=== PATIENT | male | born 1945 | race American Indian/Alaskan Native ===

== ENCOUNTER 2016-09-13 08:57 | Outpatient (CLI) | payer MEDICARE ==
--- NOTE | 2016-09-13 10:29 | Ultrasound Report ---
ULTRASOUND RENAL INDICATION: Chronic kidney disease. COMPARISON: 08/01/13 CT. FINDINGS: Renal sonography suggests moderate increased renal cortical echogenicity. Grossly preserved contours. No hydronephrosis. Known multiple hepatic cysts, measuring approximately 1.7 cm, image 12 and 2.3 cm, image 14. RIGHT KIDNEY measures 10.3 x 4.6 x 4.9 cm with cortical thickness of 1.2 cm. LEFT KIDNEY estimated at 10.6 x 5.2 x 4.8 cm with cortical thickness of 1.4 cm. Approximately 2.5 x 2.1 cm left interpolar cyst. URINARY BLADDER suboptimally distended and assessed. CONCLUSION: Underlying medical renal disease, liver cysts and a left renal cyst sonographically without acute renal abnormality. Please correlate. Thank you for the opportunity to participate in this patient's care.
== END 2016-09-13 08:58 | disposition home or self-care (01) ==
LOC: US 08:57
PROVIDERS: ATTEND Internal Medicine Nephrology
DX: I12.9 Hypertensive chronic kidney disease with stage 1 through stage 4 chronic kidney disease, or unspecified chronic kidney disease (principal); N18.4 Chronic kidney disease, stage 4 (severe); N28.1 Cyst of kidney, acquired; K76.89 Other specified diseases of liver
CPT/HCPCS: 76770

== ENCOUNTER 2018-07-15 06:03 | Day surgery (SDC) | payer BC, MEDICARE ==
[~2018-07-15 06:03] MED LIST: ANCEF/STERILE WATER 2 GM/20 ML 2 GM/20 ML SYRINGE IV NR; NACL 0.9% 1000 ML 1,000 ML IV SCH
[2018-07-15] MEDS ORDERED: NACL BACTERIOSTATIC INFILTRATI ONE (06:42)
[2018-07-15] MEDS ORDERED: XYLOCAINE MPF 2% ONE (07:06)
[2018-07-15] MEDS ORDERED: SUBLIMAZE ONE (07:06)
[2018-07-15] MEDS ORDERED: DIPRIVAN 10 MG/ML IV ONE (07:07)
[2018-07-15] MEDS ORDERED: PROVENTIL IH ONE (07:16)
[2018-07-15 07:23] VITALS: BP 171/80
[2018-07-15] MEDS ORDERED: HEPARIN 10,000 UNITS/10 ML ONE (07:33)
[2018-07-15 07:34] LABS: Basophils # (Auto) 0.1 K/mm3 (0.0-0.1); Basophils % (Auto) 0.5 % (0.0-1.8); Eosinophils # (Auto) 0.3 K/mm3 (0.0-0.4); Eosinophils % (Auto) 2.6 % (0.0-4.3); Hematocrit 30.5 % (35.5-45.6); Hemoglobin 10.3 gm/dl (11.8-15.2); Lymphocytes # (Auto) 1.9 K/mm3 (1.2-5.4); Lymphocytes % (Auto) 17.7 % (13.4-35.0); Mean Corpuscular HGB Conc 34 % (32-34); Mean Corpuscular Volume 84 fl (84-94); Monocytes # (Auto) 1.1 K/mm3 (0.0-0.8); Platelet Count 208 K/mm3 (140-440); Red Blood Count 3.65 M/mm3 (3.65-5.03)
[2018-07-15] MEDS ORDERED: XYLOCAINE 1%/ EPI 1:100,000 INFILTRATI ONE (07:34)
[2018-07-15] MEDS ORDERED: SODIUM BICARBONATE ONE (07:34)
[2018-07-15] MEDS ORDERED: NACL 0.9% 500 ML 0 ML ONE (07:34)
[2018-07-15] MEDS ORDERED: MARCAINE 0.25% INFILTRATI ONE (07:36)
[2018-07-15 07:48] LABS: Calcium 9.2 mg/dL (8.4-10.2)
[2018-07-15] MEDS ORDERED: PROVENTIL IH NR (08:00)
--- NOTE | 2018-07-15 08:50 | XRay Report ---
ROUTINE CHEST, TWO VIEWS: HISTORY: Cold symptoms. Right IJ dual-lumen catheter terminates in the superior right atrium. The trachea, heart, mediastinal contour, lung cochran and bony thorax are unremarkable. No significant change is demonstrated since 05/22/18. IMPRESSION: No acute cardiopulmonary process.
--- NOTE | 2018-07-15 10:35 | Anesthesia Consultation ---
Anesthesia Consult and Med Hx - Airway Anesthetic Teeth Evaluation: Poor ROM Head & Neck: Adequate Mental/Hyoid Distance: Adequate Mallampati Class: Class II Intubation Access Assessment: Good - Pulmonary Exam CTA: Yes - Cardiac Exam Cardiac Exam: RRR - Pre-Operative Health Status ASA Pre-Surgery Classification: ASA3 Proposed Anesthetic Plan: General - Pulmonary Hx Smoking: No Hx Respiratory Symptoms: Yes (Pesistent cough on antibiotics day 5 of 7 ) SOB: No - Cardiovascular System Hx Hypertension: Yes Hx Heart Murmur: Yes - Central Nervous System Hx Psychiatric Problems: No - Endocrine Hx Renal Disease: Yes Hx End Stage Renal Disease: Yes - Hematic Hx Anemia: Yes - Other Systems Hx Cancer: No - Additional Comments Anesthesia Medical History Comments: Pt with HTN, ESRD on HD T, TH, SAT for AV fistula . Patient has persistent cough and is on ABX for URTI ,. After D/W surgeon Surgery postponed until chest infection resolves
== END 2018-07-15 06:04 | disposition home or self-care (01) ==
LOC: OR 06:03
PROVIDERS: ATTEND Surgery Vascular Surgery
DX: I12.0 Hypertensive chronic kidney disease with stage 5 chronic kidney disease or end stage renal disease (principal); N18.6 End stage renal disease; D64.9 Anemia, unspecified; I25.2 Old myocardial infarction; E78.00 Pure hypercholesterolemia, unspecified; M19.90 Unspecified osteoarthritis, unspecified site; Z53.8 Procedure and treatment not carried out for other reasons; Z91.19 Patient's noncompliance with other medical treatment and regimen; Z98.890 Other specified postprocedural states; Z99.2 Dependence on renal dialysis; Z86.2 Personal history of diseases of the blood and blood-forming organs and certain disorders involving the immune mechanism
CPT/HCPCS: 36415; 71046; 80048; 82803; 85025; J7030; J0690; J1644; J2704; J3010; J7040

== ENCOUNTER 2018-09-02 06:00 | Day surgery (SDC) | payer BC, MEDICARE ==
[2018-09-02] MEDS ORDERED: NACL BACTERIOSTATIC INFILTRATI ONE (06:55)
--- NOTE | 2018-09-02 07:18 | Anesthesia Consultation ---
Anesthesia Consult and Med Hx Date of service: 09/02/18 - Airway Anesthetic Teeth Evaluation: Good ROM Head & Neck: Adequate Mental/Hyoid Distance: Adequate Mallampati Class: Class IV Intubation Access Assessment: Possibly Difficult - Pulmonary Exam CTA: Yes - Cardiac Exam Cardiac Exam: RRR - Pre-Operative Health Status ASA Pre-Surgery Classification: ASA4 Proposed Anesthetic Plan: General - Pulmonary Hx Smoking: No Hx Respiratory Symptoms: Yes (bronchitis s/p abx 07/2018) SOB: No Hx Sleep Apnea: No - Cardiovascular System Hx Hypertension: Yes (took clonidine and coreg today) Hx Heart Attack/AMI: No Hx Percutaneous Transluminal Coronary Angioplasty (PTCA): No Hx Cardia Arrhythmia: No - Central Nervous System CVA: No Hx Psychiatric Problems: No - Gastrointestinal Hx Gastroesophageal Reflux Disease: No - Endocrine Hx End Stage Renal Disease: Yes (TTS HD; last HD 09/01/18) Hx Liver Disease: No Hx Insulin Dependent Diabetes: No Hx Non-Insulin Dependent Diabetes: No Hx Thyroid Disease: No - Hematic Hx Anemia: Yes - Other Systems Hx Obesity: No - Additional Comments Anesthesia Medical History Comments: No hx anesthetic complications. Surgery originally scheduled in 07/2018 but postponed 2/2 active respiraoty infection. Symptoms now resolved. No longer on antibiootics and no inhaler use.
[2018-09-02] MEDS ORDERED: SUBLIMAZE IV PRN (07:19)
--- NOTE | 2018-09-02 07:19 | Anesthesia Day of Surgery ---
Anesthesia Day of Surgery - Day of Surgery Patient Examined: Yes Patient H&P Reviewed: Yes Patient is NPO: Yes Beta Blockers: Yes (coreg 09/02/18 AM)
[2018-09-02] MEDS ORDERED: MARCAINE 0.5% INFILTRATI ONE ×3 (07:32→09:00)
[2018-09-02] MEDS ORDERED: HEPARIN 10,000 UNITS/10 ML ONE (07:32)
[2018-09-02] MEDS ORDERED: XYLOCAINE 1%/ EPI 1:100,000 INFILTRATI ONE (07:32)
[2018-09-02] MEDS ORDERED: NACL 0.9% 500 ML 500 ML ONE (07:32)
[2018-09-02] MEDS ORDERED: SODIUM BICARBONATE ONE (07:33)
[2018-09-02] MEDS ORDERED: ZOFRAN ONE (07:43)
[2018-09-02] MEDS ORDERED: DIPRIVAN 10 MG/ML IV ONE (07:43)
[2018-09-02] MEDS ORDERED: XYLOCAINE MPF 2% ONE (07:43)
[2018-09-02] MEDS ORDERED: SUBLIMAZE ONE (07:43)
[2018-09-02] MEDS ORDERED: HEPARIN 10,000 UNITS/10 ML IR ONE (09:00)
[2018-09-02] MEDS ORDERED: NACL 0.9% 500 ML IRRIGATION ONE (09:01)
[2018-09-02] MEDS ORDERED: NACL 0.9% IR ONE (09:39)
--- NOTE | 2018-09-02 10:50 | Operative Report ---
Operative Report Operative Report: Date of procedure: 09/02/2018 Pre-operative diagnosis: End-stage renal disease on hemodialysis Post-operative diagnosis: Same Procedure name(s): Creation of left upper arm transposed brachial artery to basilic vein fistula Surgeon: George Erickson MD Supervisor Long Goods: Nader Chavarria PA-C Anesthesia: Gen. EBL: Minimal Specimen(s): None Complications: None Findings: Adequate caliber brachial artery and basilic vein. Good thrill and bruit in fistula post anastomosis. Palpable radial pulse present at procedure completion. Procedure:Patient in the supine position with the left arm extended the entire extremity was then prepped and draped using standard sterile technique. Duplex probe was used to identify the basilic vein and the median cubital vein and its relationship to the brachial artery. These vessels were marked. A longitudinal incision was then made beginning on the medial aspect of the distal upper arm and extending across the antecubital crease to the proximal forearm overlying the basilic vein through anesthetized skin. The incision was deepened through the subcutaneous tissue and then the basilic vein was mobilized for several centimeters and divided distally. It was hydrodilated and felt to be an acceptable candidate for access. A second incision was made over the brachial artery just above the antecubital fossa as it was felt that this would provide the most appropriate level for anastomosis based on the length of vein harvested and then deepened until the brachial artery was then divided and then mobilized for several centimeters and encircled using vessel loops. A subcutaneous tunnel was then created between the 2 incisions and the vein was then pulled through and a nonrotational fashion and prepared for anastomosis. The brachial artery was then occluded and a longitudinal arteriotomy was then made. The vein was very slightly spatulated and an end-to-side anastomosis was then created between the vein and the artery using 6-0 Prolene suture in running technique. Prior to the completion of the suture line antegrade and retrograde flushing was performed. The suture line was then completed and flow was established retrograde into the fistula. Subsequently the outflow arterial track was briefly occluded and antegrade flow was established initially into the vein followed by release of the forearm. Patient tolerated declamping without difficulty. An excellent thrill and bruit was noted in the fistula. Hemostasis was adequate. The incisions were then blocked using Marcaine 0.5% plain and then closed using 3-0 Vicryl subcutaneous 4-0 Monocryl subcuticular. The skin was sealed with Dermabond. A palpable radial pulse was documented. The patient was then returned to the supine position and returned to the recovery area in stable condition having tolerated the procedure well. Sponge and needle counts were correct.
--- NOTE | 2018-09-02 10:55 | Short Stay Summary ---
Short Stay Documentation Date of service: 09/02/18 Narrative H&P: Admitted to the operative suite for outpatient creation of hemodialysis access in his left arm - History H&P: obtained from office - Allergies and Medications Current Medications: Allergies No Known Allergies Allergy (Verified 08/27/18 16:19) Home Medications Medication Instructions Recorded Confirmed Last Taken Type Ferrous Sulfate [Iron Supplement 150 mg PO BID 07/31/13 08/27/18 07/14/18 History 325 Mg tab] [place]-3S/Dha/Epa/Fish Oil/D3 [Fish 1 each PO DAILY 07/31/13 09/02/18 09/02/18 05:20 History Sdq-Rissc-4-Vit D Softgel] amLODIPine [Norvasc] 10 mg PO DAILY 07/31/13 09/02/18 09/02/18 05:20 History cloNIDine [Catapres] 0.2 mg PO BID 07/31/13 09/02/18 09/02/18 05:20 History Carvedilol [Coreg] 6.25 mg PO BID 05/22/18 09/02/18 09/02/18 05:20 History Ergocalciferol (Vitamin D2) 2,000 unit PO DAILY 05/22/18 09/02/18 09/02/18 05:20 History [Vitamin D2] Active Medications Fentanyl (Sublimaze) 50 mcg IV Q5MIN PRN PRN Reason: Pain , Severe (7-10) Stop: 09/02/18 20:00 Sodium Chloride (Nacl 0.9% 1000 Ml) 1,000 mls @ 42 mls/hr IV DIRECT ISABELLA Last Admin: 09/02/18 06:55 Dose: 42 mls/hr Documented by: Cefazolin Sodium (Ancef/Sterile Water 2 Gm/20 Ml) 2 gm in 20 mls @ 80 mls/hr IV PREOP NR; Protocol Stop: 09/02/18 23:59 - Brief post op/procedure progress note Date of procedure: 09/02/18 Procedure: Pre-operative diagnosis: End-stage renal disease on hemodialysis Post-operative diagnosis: Same Procedure name(s): Creation of left upper arm transposed brachial artery to basilic vein fistula Surgeon: George Erickson MD Intrusion Analyst: Nader Chavarria PA-C Anesthesia: Gen. EBL: Minimal Specimen(s): None Complications: None Findings: Adequate caliber brachial artery and basilic vein. Good thrill and bruit in fistula post anastomosis. Palpable radial pulse present at procedure completion. Procedure:Patient in the supine position with the left arm extended the entire extremity was then prepped and draped using standard sterile technique. Duplex probe was used to identify the basilic vein and the median cubital vein and its relationship to the brachial artery. These vessels were marked. A longitudinal incision was then made beginning on the medial aspect of the distal upper arm and extending across the antecubital crease to the proximal forearm overlying the basilic vein through anesthetized skin. The incision was deepened through the subcutaneous tissue and then the basilic vein was mobilized for several centimeters and divided distally. It was hydrodilated and felt to be an acceptable candidate for access. A second incision was made over the brachial artery just above the antecubital fossa as it was felt that this would provide the most appropriate level for anastomosis based on the length of vein harvested and then deepened until the brachial artery was then divided and then mobilized for several centimeters and encircled using vessel loops. A subcutaneous tunnel was then created between the 2 incisions and the vein was then pulled through and a nonrotational fashion and prepared for anastomosis. The brachial artery was then occluded and a longitudinal arteriotomy was then made. The vein was very slightly spatulated and an end-to-side anastomosis was then created between the vein and the artery using 6-0 Prolene suture in running technique. Prior to the completion of the suture line antegrade and retrograde flushing was perfo rmed. The suture line was then completed and flow was established retrograde into the fistula. Subsequently the outflow arterial track was briefly occluded and antegrade flow was established initially into the vein followed by release of the forearm. Patient tolerated declamping without difficulty. An excellent thrill and bruit was noted in the fistula. Hemostasis was adequate. The incisions were then blocked using Marcaine 0.5% plain and then closed using 3-0 Vicryl subcutaneous 4-0 Monocryl subcuticular. The skin was sealed with Dermabond. A palpable radial pulse was documented. The patient was then returned to the supine position and returned to the recovery area in stable condition having tolerated the procedure well. Sponge and needle counts were correct. - Hospital course Hospital course: Unremarkable - Disposition Condition at discharge: Good Disposition: DC-01 TO HOME OR SELFCARE Short Stay Discharge Plan Activity: advance as tolerated Weight Bearing Status: Full Weight Bearing Diet: renal Wound: keep clean and dry Special Instructions: no heavy lifting Follow up with: MONET SOLORZANO MD [Primary Care Provider] - 7 Days GEORGE ERICKSON MD [Staff Physician] - 7 Days Prescriptions: HYDROcodone/APAP 5-325 [[place] 5-325 mg TAB] 1 each PO Q6HR PRN #25 tablet PRN Reason: Pain, Moderate (4-6)
[2018-09-02] MEDS ORDERED: DECADRON ONE (10:58)
[2018-09-02 12:09] VITALS: BP 150/74
== END 2018-09-02 12:37 | disposition home or self-care (01) ==
LOC: OR 06:00
PROVIDERS: ATTEND Surgery Vascular Surgery
DX: I12.0 Hypertensive chronic kidney disease with stage 5 chronic kidney disease or end stage renal disease (principal); N18.6 End stage renal disease; D64.9 Anemia, unspecified; I25.2 Old myocardial infarction; E78.00 Pure hypercholesterolemia, unspecified; M19.90 Unspecified osteoarthritis, unspecified site; Z79.899 Other long term (current) drug therapy; Z98.890 Other specified postprocedural states; Z99.2 Dependence on renal dialysis; Z91.19 Patient's noncompliance with other medical treatment and regimen
CPT/HCPCS: 36821; 82803; J0690; J1100; J1644; J2405; J2704; J3010; J7030; J7040

== ENCOUNTER 2018-11-08 03:27 | Emergency (ER) | payer BC, MEDICARE ==
[2018-11-08 04:26] VITALS: BP 163/73
== END 2018-11-08 04:28 | disposition left against medical advice (07) ==
LOC: ED 03:27
DX: K59.00 Constipation, unspecified (principal); Z53.21 Procedure and treatment not carried out due to patient leaving prior to being seen by health care provider

== ENCOUNTER 2018-11-11 16:26 | Inpatient (IN) | payer BC, MEDICARE ==
--- NOTE | 2018-11-11 17:55 | Emergency Department Report ---
- General Chief complaint: Weakness Stated complaint: FATIGUE Time Seen by Provider: 11/11/18 17:53 Source: EMS Mode of arrival: Stretcher Limitations: Physical Limitation - History of Present Illness Initial comments: Patient is a 73-year-old male that presents emergency room with complaints of generalized fatigue and body aches. Patient states she had dialysis yesterday and his symptoms at 10am yesterday. Patient states symptoms are worsening. Patient denies chest pain shortness of breath. Denies headache. Patient denies dizziness. Patient denies trauma. Patient denies falling. -: Sudden Location: generalized Severity: severe Consistency: constant Improves with: rest Worsens with: movement, exertion Associated Symptoms: myalgias. denies: chest pain, confusion, dark stools, diaphoresis, dysuria, easy bruising, fever/chills, headaches, loss of appetite, nausea/vomiting, rash, shortness of breath, syncope - Related Data Home Medications Medication Instructions Recorded Confirmed Last Taken Ferrous Sulfate [Iron Supplement 150 mg PO BID 07/31/13 08/27/18 07/14/18 325 Mg tab] [place]-3S/Dha/Epa/Fish Oil/D3 [Fish 1 each PO DAILY 07/31/13 09/02/18 09/02/18 05:20 Jfx-Tjsnp-7-Vit D Softgel] amLODIPine [Norvasc] 10 mg PO DAILY 07/31/13 09/02/18 09/02/18 05:20 cloNIDine [Catapres] 0.2 mg PO BID 07/31/13 09/02/18 09/02/18 05:20 Carvedilol [Coreg] 6.25 mg PO BID 05/22/18 09/02/18 09/02/18 05:20 Ergocalciferol (Vitamin D2) 2,000 unit PO DAILY 05/22/18 09/02/18 09/02/18 05:20 [Vitamin D2] Previous Rx's Medication Instructions Recorded Last Taken Type HYDROcodone/APAP 5-325 [[place] 1 each PO Q6HR PRN #25 tablet 09/02/18 Unknown Rx 5-325 mg TAB] Allergies Allergy/AdvReac Type Severity Reaction Status Date / Time No Known Allergies Allergy Verified 08/27/18 16:19 ED Review of Systems ROS: Stated complaint: FATIGUE Other details as noted in HPI Constitutional: malaise, weakness. denies: chills, fever Eyes: denies: eye pain, eye discharge, vision change ENT: denies: ear pain, throat pain Respiratory: denies: cough, shortness of breath, wheezing Cardiovascular: denies: chest pain, palpitations Endocrine: no symptoms reported Gastrointestinal: denies: abdominal pain, nausea, diarrhea Genitourinary: denies: urgency, dysuria Musculoskeletal: denies: back pain, joint swelling, arthralgia Skin: denies: rash, lesions Neurological: weakness. denies: headache, paresthesias Psychiatric: denies: anxiety, depression Hematological/Lymphatic: denies: easy bleeding, easy bruising ED Past Medical Hx - Past Medical History Previous Medical History?: Yes Hx Hypertension: Yes (took clonidine and coreg today) Hx Heart Attack/AMI: No Hx Liver Disease: No Hx Renal Disease: Yes (HD Tues,Thurs,Sat) Hx Arthritis: Yes ("Different days, different joints") Additional medical history: ESRD, Hematuria, Proteinuria, Noncompliant with medical treatment, hypokalemis, hyperparathyroidism - Surgical History Past Surgical History?: Yes Additional Surgical History: hemmoroidectomy. Right chest Vas-Cath - Family History Family history: no significant - Social History Smoking Status: Never Smoker Substance Use Type: None - Medications Home Medications: Home Medications Medication Instructions Recorded Confirmed Last Taken Type Ferrous Sulfate [Iron Supplement 150 mg PO BID 07/31/13 08/27/18 07/14/18 History 325 Mg tab] [place]-3S/Dha/Epa/Fish Oil/D3 [Fish 1 each PO DAILY 07/31/13 09/02/18 09/02/18 05:20 History [place]-3-Vit D Softgel] amLODIPine [Norvasc] 10 mg PO DAILY 07/31/13 09/02/18 09/02/18 05:20 History cloNIDine [Catapres] 0.2 mg PO BID 07/31/13 09/02/18 09/02/18 05:20 History Carvedilol [Coreg] 6.25 mg PO BID 05/22/18 09/02/18 09/02/18 05:20 History Ergocalciferol (Vitamin D2) 2,000 unit PO DAILY 05/22/18 09/02/18 09/02/18 05:20 History [Vitamin D2] HYDROcodone/APAP 5-325 [[place] 1 each PO Q6HR PRN #25 tablet 09/02/18 Unknown Rx 5-325 mg TAB] ED Physical Exam - General Limitations: Physical Limitation General appearance: alert, in no apparent distress - Head Head exam: Present: atraumatic, normocephalic - Eye Eye exam: Present: normal appearance, PERRL Pupils: Present: normal accommodation - ENT ENT exam: Present: mucous membranes moist - Neck Neck exam: Present: normal inspection - Respiratory Respiratory exam: Present: rhonchi. Absent: respiratory distress - Cardiovascular Cardiovascular Exam: Present: regular rate, normal rhythm. Absent: systolic murmur, diastolic murmur, rubs, gallop - GI/Abdominal GI/Abdominal exam: Present: soft, normal bowel sounds. Absent: distended, tenderness, guarding - Rectal Rectal exam: Present: deferred - Extremities Exam Extremities exam: Present: normal inspection - Back Exam Back exam: Present: normal inspection - Neurological Exam Neurological exam: Present: alert, oriented X3 - Psychiatric Psychiatric exam: Present: normal affect, normal mood - Skin Skin exam: Present: warm, dry, intact, normal color. Absent: rash - Assessment Assessment Interval: Baseline - Level of Consciousness 1a. Level of Consciousness: alert/keenly responsive - LOC Questions 1b. LOC Questions: answers both correctly - LOC Command 1c. LOC Commands: performs tasks correctly - Best Gaze 2. Best Gaze: normal - Visual 3. Visual: no visual loss - Facial Palsy 4. Facial Palsy: normal symmetrical movement - Motor Arm 5a. Motor Arm Left: no drift 5b. Motor Arm Right: no drift - Motor Leg 6a. Motor Leg Left: no drift 6b. Motor Leg Right: no drift - Limb Ataxia 7. Limb Ataxia: absent - Sensory 8. Sensory: normal - Best Language 9. Best Language: no aphasia - Dysarthria 10. Dysarthria: normal - Extinction and Inattention 11. Extinction/Inattention: no abnormality - Scoring Total Score: 0 Stroke Severity: No Stroke Symptoms ED Course Vital Signs 11/11/18 11/11/18 11/11/18 17:15 17:21 18:16 Temperature 101.2 F H Pulse Rate 100 H 102 H 101 H Respiratory 25 H 21 Rate Blood Pressure 153/72 Blood Pressure [Right] O2 Sat by Pulse 78 L 96 Oximetry 11/11/18 11/11/18 11/11/18 18:21 18:22 18:25 Temperature Pulse Rate 101 H 109 H Respiratory 22 25 H 25 H Rate Blood Pressure Blood Pressure 150/71 [Right] O2 Sat by Pulse 97 98 98 Oximetry 11/11/18 11/11/18 11/11/18 18:31 18:41 18:51 Temperature Pulse Rate 102 H 102 H 101 H Respiratory 21 25 H 29 H Rate Blood Pressure Blood Pressure [Right] O2 Sat by Pulse 96 95 96 Oximetry 11/11/18 11/11/18 11/11/18 19:01 19:11 19:21 Temperature Pulse Rate 101 H 99 H 97 H Respiratory 24 25 H 26 H Rate Blood Pressure 129/66 Blood Pressure [Right] O2 Sat by Pulse 95 94 92 Oximetry 11/11/18 11/11/18 11/11/18 19:31 19:41 19:51 Temperature Pulse Rate 98 H 97 H 96 H Respiratory 23 19 20 Rate Blood Pressure 129/66 129/66 129/66 Blood Pressure [Right] O2 Sat by Pulse 93 95 94 Oximetry 11/11/18 11/11/18 11/11/18 20:00 20:11 20:21 Temperature Pulse Rate 96 H 98 H 95 H Respiratory 20 23 27 H Rate Blood Pressure 136/68 136/68 136/68 Blood Pressure [Right] O2 Sat by Pulse 92 95 95 Oximetry 11/11/18 11/11/18 11/11/18 20:31 20:41 20:51 Temperature Pulse Rate 96 H 96 H 98 H Respiratory 27 H 33 H 14 Rate Blood Pressure 136/68 136/68 136/68 Blood Pressure [Right] O2 Sat by Pulse 96 96 96 Oximetry 11/11/18 11/11/18 11/11/18 21:00 21:04 21:11 Temperature Pulse Rate 99 H 96 H 97 H Respiratory 30 H 21 23 Rate Blood Pressure 146/73 146/73 Blood Pressure 146/73 [Right] O2 Sat by Pulse 93 97 95 Oximetry 11/11/18 11/11/18 11/11/18 21:21 21:31 21:40 Temperature Pulse Rate 97 H 96 H 98 H Respiratory 20 22 34 H Rate Blood Pressure 146/73 146/73 146/73 Blood Pressure [Right] O2 Sat by Pulse 96 95 94 Oximetry 11/11/18 11/11/18 11/11/18 21:51 22:00 22:11 Temperature Pulse Rate 96 H 96 H 100 H Respiratory 29 H 33 H 31 H Rate Blood Pressure 146/73 143/72 143/72 Blood Pressure [Right] O2 Sat by Pulse 94 93 94 Oximetry 11/11/18 11/11/18 11/11/18 22:21 22:31 22:35 Temperature Pulse Rate 100 H 100 H 101 H Respiratory 28 H 26 H 22 Rate Blood Pressure 143/72 143/72 Blood Pressure 143/72 [Right] O2 Sat by Pulse 95 95 95 Oximetry 11/11/18 11/11/18 11/11/18 22:41 22:51 23:10 Temperature 98.4 F Pulse Rate 99 H 103 H 96 H Respiratory 24 19 19 Rate Blood Pressure 143/72 143/72 125/64 Blood Pressure [Right] O2 Sat by Pulse 96 95 92 Oximetry - Reevaluation(s) Reevaluation #1: Patient states is still feeling weak. Patient denies headache. Patient denies blurred vision. Patient is still hypoxic. Patient is currently on 5 L of oxygen. Patient not having respiratory distress. Patient denies chest pain shortness of breath. Patient denies difficulty breathing. 11/11/18 19:32 Reevaluation #2: I discussed all results with patient. I discussed plan of care outpatient. Patient will be admitted to the hospitalist service. Patient agrees with plan of care. 11/11/18 20:00 - Consultations Consultation #1: Hospitalist consult for admission. Hospitalist admit patient. 11/11/18 20:00 Consultation #2: Patient's radiosonde operator paged. 11/11/18 20:00 I discussed case with the patient's radiosonde operator, Dr Arvizu. Dr. Arvizu recommends admission and dialysis tomorrow as well as a dose of Kayexalate 11/11/18 20:13 11/11/18 20:14 ED Medical Decision Making - Lab Data Result diagrams: 11/12/18 03:33 11/12/18 03:33 - EKG Data -: EKG Interpreted by Me EKG shows normal: sinus rhythm, axis, intervals, QRS complexes, ST-T waves Rate: tachycardia - EKG Data Interpretation: LVH - Radiology Data Radiology results: report reviewed, image reviewed CHEST 1 VIEW INDICATION / CLINICAL INFORMATION: weakness. COMPARISON: None available. FINDINGS: SUPPORT DEVICES: The right PermCath terminates at the SVC/right atrial junction.. HEART / MEDIASTINUM: No significant abnormality. LUNGS / PLEURA: Severe bilateral airspace disease identified throughout both lungs. Small bilateral pleural effusions. It is unclear if the opacities are related to worsening i nterstitial edema or possibly underlying pneumonia. - Medical Decision Making Patient is a 73-year-old male since emergency room with complaints of generalized weakness and bodyaches. Patient is on dialysis and had dialysis 24 hours ago. Patient's labs unremarkable except for chronic kidney disease finding and hyperkalemia. Patient's radiosonde operator consult. [employer] Teacher recommends Kayexalate and admission. Patient's chest CT done and shows interstitial edema as well as pneumonia. Patient given antibiotics. Patient also found to be hypoxic and placed on oxygen. Patient also found to have fever and treated with Tylenol. - Differential Diagnosis hypoxia. Pneumonia. Weakness. Bodyaches. Fever Critical Care Time: Yes Critical care attestation.: If time is entered above; I have spent that time in minutes in the direct care of this critically ill patient, excluding procedure time. Critical Care Time: 35 minutes ED Disposition Clinical Impression: Weakness, CKD (chronic kidney disease) requiring chronic dialysis, Elevated troponin, ESRD (end stage renal disease), Hyperkalemia, Hypoxia Pneumonia Qualifiers: Pneumonia type: due to unspecified organism Laterality: unspecified laterality Lung location: unspecified part of lung Qualified Code(s): J18.9 - Pneumonia, unspecified organism Fever Qualifiers: Fever type: unspecified Qualified Code(s): R50.9 - Fever, unspecified Disposition: OP ADMIT IP TO THIS HOSP Is pt being admited?: Yes Does the pt Need Aspirin: No Condition: Critical Time of Disposition: 20:00
[2018-11-11] MEDS ORDERED: ACETAMINOPHEN 500 MG TAB PO ONE (18:09)
[2018-11-11 18:12] LABS: Albumin 3.1 g/dL (3.9-5); Calcium 10.2 mg/dL (8.4-10.2)
[2018-11-11 18:31] LABS: Chol/HDL Ratio 14.62 %
[2018-11-11] MEDS ORDERED: LORazepam 2 MG/ML VIAL ONE (18:40)
[2018-11-11 18:50] LABS: Creatine Kinase MB 2.6 ng/mL (0.0-4.0)
[2018-11-11] MEDS ORDERED: CEFEPIME/NS 2 GM/100 ML 2 GM/100 ML BAG IV ONE (19:00)
--- NOTE | 2018-11-11 19:37 | XRay Report ---
CHEST 1 VIEW INDICATION / CLINICAL INFORMATION: weakness. COMPARISON: None available. FINDINGS: SUPPORT DEVICES: The right PermCath terminates at the SVC/right atrial junction.. HEART / MEDIASTINUM: No significant abnormality. LUNGS / PLEURA: Severe bilateral airspace disease identified throughout both lungs. Small bilateral p leural effusions. It is unclear if the opacities are related to worsening interstitial edema or possi deiv underlying pneumonia. Signer Name: Akash Elizalde MD Signed: 11/11/2018 7:32 PM Workstation Name: [id number]
[2018-11-11 19:47] LABS: Hematocrit 30.3 % (35.5-45.6); Hemoglobin 10.4 gm/dl (11.8-15.2); Mean Corpuscular HGB Conc 34 % (32-34); Mean Corpuscular Volume 85 fl (84-94); Platelet Count 134 K/mm3 (140-440); Red Blood Count 3.59 M/mm3 (3.65-5.03); Red Cell Distribution Width 15.2 % (13.2-15.2)
[2018-11-11] MEDS ORDERED: SODIUM POLYSTYRENE 15 GM/60 ML ORAL LIQD PO ONE (20:15)
[2018-11-11] MEDS ORDERED: IPRATROPIUM/ALBUTEROL SULFATE 3 ML AMPUL.NEB IH ONE (20:47)
[2018-11-11] MEDS ORDERED: methylPREDNISolone Sod Succinate 125 MG/2 ML INJ IV ONE (20:47)
[2018-11-11 21:15] LABS: Basophils % (Manual) 0 % (0.0-1.8); Total Cells Counted 100
[2018-11-11 21:16] LABS: Anisocytosis 1+; Band Neutrophils # (Manual) 0.3 K/mm3; Eosinophils % (Manual) 0 % (0.0-4.3); Platelet Estimate Consistent w Auto
--- NOTE | 2018-11-11 21:44 | History and Physical Report ---
History of Present Illness Date of examination: 11/11/18 History of present illness: 73 year old man with hypertension,ESRD on dialysdis, hyperparathyroidism, OA comes to the ER for evaluation. He is a poor historian, complaining of shortness of breath. He was noted to be febrile in the emergency room, failed his swallow screen. Chest x-ray shows bilateral pneumonia, he was started on cefepime Review Of Systems: Constitutional: no weight loss, fever, chills Ears, eyes, nose, mouth and throat: no nasal congestion, no nasal discharge, no sinus pressure, blurry vision, diplopia Neck: No neck pain or rigidity. Cardiovascular: No palpitations, chest pain Respiratory: No shortness of breath, cough Gastrointestinal: No hematochezia, abdominal pain Genitourinary : no dysuria, frequency , hematuria Musculoskeletal: no muscle ache , joint pain Integumentary: no rash, no pruritis Neurological: no parathesias, focal weakness Endocrine: no cold or heat intolerance, no polyuria or polydipsia Hematologic/Lymphatic: no easy bruising, no easy bleeding, no gland swelling Allergic/Immunologic: no urticaria, no angioedema. PAST MEDICAL HISTORY:hypertension, ESRD on dialysdis, hyperparathyroidism, OA PAST SURGICAL HISTORY:None FAMILY HISTORY:hypertension, diabetes SOCIAL HISTORY: Denies tobacco, drugs, alcohol Medications and Allergies Allergies Allergy/AdvReac Type Severity Reaction Status Date / Time No Known Allergies Allergy Verified 08/27/18 16:19 Home Medications Medication Instructions Recorded Confirmed Last Taken Type Ferrous Sulfate [Iron Supplement 150 mg PO BID 07/31/13 11/14/18 07/14/18 History 325 Mg tab] [place]-3S/Dha/Epa/Fish Oil/D3 [Fish 1 each PO DAILY 07/31/13 11/14/18 09/02/18 05:20 History Grh-Fviej-2-Vit D Softgel] amLODIPine [Norvasc] 10 mg PO DAILY 07/31/13 11/14/18 09/02/18 05:20 History cloNIDine [Catapres] 0.2 mg PO BID 07/31/13 11/14/18 09/02/18 05:20 History Carvedilol [Coreg] 6.25 mg PO BID 05/22/18 11/14/18 09/02/18 05:20 History Ergocalciferol (Vitamin D2) 2,000 unit PO DAILY 05/22/18 11/14/18 09/02/18 05:20 History [Vitamin D2] HYDROcodone/APAP 5-325 [[place] 1 each PO Q6HR PRN #25 tablet 09/02/18 11/14/18 Unknown Rx 5-325 mg TAB] Exam - Physical Exam Narrative exam: General Apperance: The patient sitting in bed no acute distress HEENT: Normocephalic, atraumatic. Pupils equally round and reactive to light, extraocular movement intact, and no sclericterus or JVD or thyromegaly or nodule. Neck supple, no carotid bruit, mucous membranes moist, no exudate or erythema Heart: S1-S2, regular is rhythm Lungs: Clear to auscultation bilaterally, breathing comfortable Abdomen: Positive bowel sounds, soft, nontender, nondistended, no organomegaly Extremities: No edema cyanosis clubbing Skin: no rash, nodule, warm and dry Neuro:CN 2 -12 intact, motor/sensory intact, speech is fluent - Constitutional Vitals: Temp Pulse Resp BP Pulse Ox 101.2 F H 96 H 21 146/73 97 11/11/18 17:15 11/11/18 21:04 11/11/18 21:04 11/11/18 21:04 11/11/18 21:04 Results - Labs CBC & Chem 7: 11/24/18 06:56 11/24/18 06:56 Labs: Abnormal lab results 11/11/18 11/11/18 11/11/18 Range/Units 17:45 18:06 19:14 RBC 3.59 L (3.65-5.03) M/mm3 Hgb 10.4 L (11.8-15.2) gm/dl Hct 30.3 L (35.5-45.6) % Plt Count 134 L (140-440) K/mm3 Seg Neuts % (Manual) 73.0 H (40.0-70.0) % Lymphocytes % (Manual) 6.0 L (13.4-35.0) % Monocytes % (Manual) 16.0 H (0.0-7.3) % Lymphocytes # (Manual) 0.4 L (1.2-5.4) K/mm3 Monocytes # (Manual) 1.1 H (0.0-0.8) K/mm3 Sodium 135 L (137-145) mmol/L Potassium 5.8 H (3.6-5.0) mmol/L Chloride 90.5 L (98-107) mmol/L BUN 91 H (9-20) mg/dL Creatinine 11.1 H (0.8-1.5) mg/dL Glucose 162 H (75-100) mg/dL Total Creatine Kinase 366 H (55-170) units/L Troponin T 0.210 H* (0.00-0.029) ng/mL Albumin 3.1 L (3.9-5) g/dL Triglycerides 380 H (2-149) mg/dL LDL Cholesterol Direct 8 L (50-130) mg/dL HDL Cholesterol 8 L (40-59) mg/dL - Imaging and Cardiology Chest x-ray: report reviewed Assessment and Plan Assessment Community-acquired pneumonia Dysphagia Hyperkalemia ESRD on dialysdis Hypertension Hyperparathyroidism Osteoarthritis Thrombocytopenia Plan Admit to medicine Start IV fluids, IV Levaquin s/p Kayexalate, consult renal for dialysis Sppech consult was consulted, NPO dvt prophalaxis
[2018-11-11] MEDS ORDERED: SODIUM CHLORIDE 0.45% 1000 ML 1,000 ML IV SCH (22:00)
[2018-11-11] MEDS ORDERED: ONDANSETRON 4 MG/2 ML INJ IV PRN (22:59)
[2018-11-11 23:51] LABS: Creatine Kinase MB 3.9 ng/mL (0.0-4.0)
--- NOTE | 2018-11-12 03:19 | Ultrasound Report ---
ULTRASOUND RENAL INDICATION: arf COMPARISON: 09/13/2016. FINDINGS: RIGHT KIDNEY: Size: 8.2 cm. Echogenicity: Increased. Cortical thickness: Thin. Stones: None. Hydronephrosis: None. Cyst or mass: None. LEFT KIDNEY: Size: 9.3 cm. Echogenicity: Increased. Cortical thickness: Thin. Stones: None. Hydronephrosis: None. Cyst or mass: Small cysts are seen measuring up to 2.2 cm in the midportion. No solid masses are seen . Urinary Bladder: No significant abnormality. Free Fluid: None. Additional Findings: Small hepatic cysts are seen measuring up to 16 mm.. IMPRESSION: 1. No acute sonographic abnormality of the kidneys 2. Chronic changes with cortical increased echogenicity and thinning, the latter more prominent than on prior study in 2017. 3. Small left renal cyst 4. Small hepatic cysts Signer Name: Frederic Velasquez MD Signed: 11/12/2018 3:15 AM Workstation Name: [id number]
[2018-11-12 04:22] LABS: Hemoglobin 10.3 gm/dl (11.8-15.2); Mean Corpuscular HGB Conc 35 % (32-34); Mean Corpuscular Volume 85 fl (84-94); Red Blood Count 3.54 M/mm3 (3.65-5.03); Red Cell Distribution Width 14.9 % (13.2-15.2)
[2018-11-12 04:29] LABS: Platelet Count 61 K/mm3 (140-440)
[2018-11-12 04:35] LABS: Calcium 10.5 mg/dL (8.4-10.2)
[2018-11-12 05:27] LABS: Band Neutrophils # (Manual) 0.2 K/mm3; Basophils % (Manual) 0 % (0.0-1.8); Eosinophils % (Manual) 0 % (0.0-4.3); Total Cells Counted 100
[2018-11-12 05:29] LABS: Anisocytosis Few; Platelet Estimate Consistent w Auto
[2018-11-12] MEDS ORDERED: SODIUM CHLORIDE 0.9% 100 ML IV PRN (09:38)
[2018-11-12] MEDS ORDERED: PNEUMOCOCCAL 23 Valent 0.5 ML VIAL IM ONE (12:00)
[2018-11-12] MEDS ORDERED: SODIUM CHLORIDE*PRIMING MACHINE ONLY FOR DIALYSIS MC ONE (12:31)
--- NOTE | 2018-11-12 12:46 | Progress Note ---
Assessment and Plan Assessment and plan: --Community-acquired pneumonia: Empiric antibiotics, cultures, Supportive care --Infected permacath; empiric antibiotics, follow cultures ID consult, vascular consult --History of Dysphagia; speech and swallow evaluated the patient Cleared for oral diet --Hyperkalemia; corrected, hemodialysis per schedule Monitor electrolytes --ESRD on dialysdis; nephrology following Avoid nephrotoxins, Ht per schedule --Hypertension; moderate control Closely monitor blood pressures and adjust as needed --Thrombocytopenia; no evidence of bleeding Closely monitor platelets, consult hematology if needed --DVT prophylaxis; heparin renal dose Monitor closely and adjust management as needed Discussed with boiler house mechanic who recommended transfer the patient to [facility] Discussed with [facility] charge informed of the possible transfer Critical care time 32 minutes History Interval history: Patient seen and examined medical records reviewed Patient receiving hemodialysis, complaints of generalized weakness Infected permacath, on IV antibiotics Alert awake oriented mild distress Vital signs noted Hospitalist Physical - Constitutional Vitals: Temp Pulse Resp BP Pulse Ox 97.7 F 86 18 96/50 96 11/12/18 10:56 11/12/18 12:30 11/12/18 10:56 11/12/18 12:30 11/12/18 10:56 General appearance: Present: mild distress, well-nourished - EENT Eyes: Present: PERRL, EOM intact - Neck Neck: Present: supple, normal ROM - Respiratory Respiratory effort: normal Respiratory: bilateral: diminished, negative: rales, rhonchi, wheezing - Cardiovascular Rhythm: regular Heart Sounds: Present: S1 & S2 - Extremities Extremities: no ischemia, No edema Peripheral Pulses: abnormal (infected permacath) - Abdominal General gastrointestinal: soft, non-tender, non-distended, normal bowel sounds - Integumentary Integumentary: Present: clear, warm - Psychiatric Psychiatric: appropriate mood/affect, cooperative - Neurologic Neurologic: CNII-XII intact, moves all extremities Results - Labs CBC & Chem 7: 11/12/18 03:33 11/12/18 03:33 Labs: Laboratory Last Values WBC 6.2 K/mm3 (4.5-11.0) 11/12/18 03:33 RBC 3.54 M/mm3 (3.65-5.03) L 11/12/18 03:33 Hgb 10.3 gm/dl (11.8-15.2) L 11/12/18 03:33 Hct 30.0 % (35.5-45.6) L 11/12/18 03:33 MCV 85 fl (84-94) 11/12/18 03:33 MCH 29 pg (28-32) 11/12/18 03:33 MCHC 35 % (32-34) H 11/12/18 03:33 RDW 14.9 % (13.2-15.2) 11/12/18 03:33 Plt Count 61 K/mm3 (140-440) L 11/12/18 03:33 Lymph % (Auto) School Superintendent 11/11/18 19:14 [place] % (Auto) School Superintendent 11/12/18 03:33 Eos % (Auto) School Superintendent 11/11/18 19:14 Baso % (Auto) School Superintendent 11/11/18 19:14 Lymph # School Superintendent 11/11/18 19:14 [place] # School Superintendent 11/11/18 19:14 Eos # School Superintendent 11/11/18 19:14 Baso # School Superintendent 11/11/18 19:14 Add Manual Diff Complete 11/12/18 03:33 Total Counted 100 11/12/18 03:33 Seg Neutrophils % School Superintendent 11/11/18 19:14 Seg Neuts % (Manual) 63.0 % (40.0-70.0) 11/12/18 03:33 4.0 % 11/12/18 03:33 26.0 % (13.4-35.0) 11/12/18 03:33 Reactive Lymphs % (Man) 0 % 11/12/18 03:33 2.0 % (0.0-7.3) 11/12/18 03:33 0 % (0.0-4.3) 11/12/18 03:33 0 % (0.0-1.8) 11/12/18 03:33 5.0 % 11/12/18 03:33 0 % 11/12/18 03:33 0 % 11/12/18 03:33 0 % 11/12/18 03:33 Nucleated RBC % Not Reportable 11/12/18 03:33 Seg Neutrophils # School Superintendent 11/11/18 19:14 Seg Neutrophils # Man 3.9 K/mm3 (1.8-7.7) 11/12/18 03:33 Band Neutrophils # 0.2 K/mm3 11/12/18 03:33 1.6 K/mm3 (1.2-5.4) 11/12/18 03:33 Abs React Lymphs (Man) 0.0 K/mm3 11/12/18 03:33 0.1 K/mm3 (0.0-0.8) 11/12/18 03:33 0.0 K/mm3 (0.0-0.4) 11/12/18 03:33 0.0 K/mm3 (0.0-0.1) 11/12/18 03:33 0.3 K/mm3 11/12/18 03:33 0.0 K/mm3 11/12/18 03:33 0.0 K/mm3 11/12/18 03:33 Blast Cells # 0.0 K/mm3 11/12/18 03:33 WBC Morphology Not Reportable 11/12/18 03:33 Hypersegmented Neuts Not Reportable 11/12/18 03:33 Hyposegmented Neuts Not Reportable 11/12/18 03:33 Hypogranular Neuts Not Reportable 11/12/18 03:33 Not Reportable 11/12/18 03:33 Not Reportable 11/12/18 03:33 Not Reportable 11/12/18 03:33 Not Reportable 11/12/18 03:33 Not Reportable 11/12/18 03:33 Not Reportable 11/12/18 03:33 Consistent w auto 11/12/18 03:33 Not Reportable 11/12/18 03:33 Plt Clumps, EDTA Not Reportable 11/12/18 03:33 Not Reportable 11/12/18 03:33 Not Reportable 11/12/18 03:33 Not Reportable 11/12/18 03:33 Plt Morphology Comment Not Reportable 11/12/18 03:33 RBC Morphology Not Reportable 11/12/18 03:33 Dimorphic RBCs Not Reportable 11/12/18 03:33 Not Reportable 11/12/18 03:33 Not Reportable 11/12/18 03:33 Not Reportable 11/12/18 03:33 Few 11/12/18 03:33 Not Reportable 11/12/18 03:33 Not Reportable 11/12/18 03:33 Not Reportable 11/12/18 03:33 Not Reportable 11/12/18 03:33 Not Reportable 11/12/18 03:33 Not Reportable 11/12/18 03:33 Not Reportable 11/12/18 03:33 Not Reportable 11/12/18 03:33 Not Reportable 11/12/18 03:33 Not Reportable 11/12/18 03:33 Not Reportable 11/12/18 03:33 Not Reportable 11/12/18 03:33 Not Reportable 11/12/18 03:33 Not Reportable 11/12/18 03:33 Not Reportable 11/12/18 03:33 Acanthocytes (Spur) Not Reportable 11/12/18 03:33 Rouleaux Not Reportable 11/12/18 03:33 Not Reportable 11/12/18 03:33 Not Reportable 11/12/18 03:33 Not Reportable 11/12/18 03:33 Not Reportable 11/12/18 03:33 Hem Pathologist Commnt No 11/12/18 03:33 Sodium 137 mmol/L (137-145) 11/12/18 03:33 Potassium 5.1 mmol/L (3.6-5.0) H 11/12/18 03:33 Chloride 92.5 mmol/L (98-107) L 11/12/18 03:33 Carbon Dioxide 25 mmol/L (22-30) 11/12/18 03:33 25 mmol/L 11/12/18 03:33 BUN 103 mg/dL (9-20) H 11/12/18 03:33 12.5 mg/dL (0.8-1.5) H 11/12/18 03:33 Estimated GFR 5 ml/min 11/12/18 03:33 8 % 11/12/18 03:33 Glucose 158 mg/dL (75-100) H 11/12/18 03:33 Lactic Acid 2.00 mmol/L (0.7-2.0) 11/11/18 17:45 Calcium 10.5 mg/dL (8.4-10.2) H 11/12/18 03:33 Phosphorus 3.70 mg/dL (2.5-4.5) 11/11/18 23:15 0.80 mg/dL (0.1-1.2) 11/11/18 17:45 AST 35 units/L (5-40) 11/11/18 17:45 ALT 12 units/L (7-56) 11/11/18 17:45 88 units/L (35-129) 11/11/18 17:45 363 units/L (55-170) H 11/12/18 03:33 CK-MB (CK-2) 4.0 ng/mL (0.0-4.0) 11/12/18 03:33 CK-MB (CK-2) Rel Index 1.1 (0-4) 11/12/18 03:33 0.274 ng/mL (0.00-0.029) H* 11/12/18 03:33 8.0 g/dL (6.3-8.2) 11/11/18 17:45 3.1 g/dL (3.9-5) L 11/11/18 17:45 0.6 % 11/11/18 17:45 Triglycerides 380 mg/dL (2-149) H 11/11/18 17:45 Cholesterol 117 mg/dL (50-199) 11/11/18 17:45 8 mg/dL (50-130) L 11/11/18 17:45 8 mg/dL (40-59) L 11/11/18 17:45 14.62 % 11/11/18 17:45 Active Medications - Current Medications Current Medications: Generic Name Dose Route Start Last Admin Trade Name Freq PRN Reason Stop Dose Admin Acetaminophen 650 mg 11/11/18 23:03 Tylenol CA Q4H PRN Pain, Mild (1-3) Levofloxacin/Dextrose 250 mg in 50 mls @ 50 mls/hr 11/12/18 10:00 Levaquin 250mg/50ml IV Q24HR ISABELLA Protocol Sodium Chloride 100 mls @ 999 mls/hr 11/12/18 09:38 Nacl 0.9% IV SISSY PRN Hypotension Ondansetron HCl 4 mg 11/11/18 22:59 Zofran IV Q4H PRN Nausea And Vomiting Sodium Chloride 10 ml 11/12/18 10:00 Sodium Chloride Flush Syringe 10 Ml IV BID ISABELLA Sodium Chloride 10 ml 11/11/18 22:59 Sodium Chloride Flush Syringe 10 Ml IV PRN PRN LINE FLUSH
[2018-11-12 13:58] LABS: Hepatitis B Surface Antigen Non-Reactive (Negative); Hepatitis C Virus Antibody Non-Reactive (NonReactive)
--- NOTE | 2018-11-12 14:30 | Consultation ---
History of Present Illness - Reason for Consult end stage renal disease - History of Present Illness 73 y/o male, with h/o ESRD, well known to outpatient dialysis unit, with h/o HTN, who dialyzes via a RIJ permcath, presented to the ED secondary to worsening shortness of breath and AMS. Chest xray was concerning for pneumonia vs possible volume overload. While here in the HD unit the staff noted purulent drainage from the permcath site. He remains afebrile, but is very lethargic on my examination and is difficult to arouse. Past History Past Medical History: CAD, dialysis, hypertension, hyperlipidemia Past Surgical History: Other (permcath placement ) Social history: no significant social history Family history: no significant family history Medications and Allergies Allergies Allergy/AdvReac Type Severity Reaction Status Date / Time No Known Allergies Allergy Verified 08/27/18 16:19 Home Medications Medication Instructions Recorded Confirmed Last Taken Type Ferrous Sulfate [Iron Supplement 150 mg PO BID 07/31/13 08/27/18 07/14/18 History 325 Mg tab] [place]-3S/Dha/Epa/Fish Oil/D3 [Fish 1 each PO DAILY 07/31/13 09/02/18 09/02/18 05:20 History Ogj-Ujpzx-6-Vit D Softgel] amLODIPine [Norvasc] 10 mg PO DAILY 07/31/13 09/02/18 09/02/18 05:20 History cloNIDine [Catapres] 0.2 mg PO BID 07/31/13 09/02/18 09/02/18 05:20 History Carvedilol [Coreg] 6.25 mg PO BID 05/22/18 09/02/18 09/02/18 05:20 History Ergocalciferol (Vitamin D2) 2,000 unit PO DAILY 05/22/18 09/02/18 09/02/18 05:20 History [Vitamin D2] HYDROcodone/APAP 5-325 [[place] 1 each PO Q6HR PRN #25 tablet 09/02/18 Unknown Rx 5-325 mg TAB] Active Meds: Active Medications Acetaminophen (Tylenol) 650 mg [place] Q4H PRN PRN Reason: Pain, Mild (1-3) Sodium Chloride (Nacl 0.9%) 100 mls @ 999 mls/hr IV SISSY PRN PRN Reason: Hypotension Levofloxacin/Dextrose (Levaquin 500mg/100ml) 500 mg in 100 mls @ 100 mls/hr IV Q48H ISABELLA; Protocol Vancomycin HCl (Vancomycin/Ns 1 Gm/250 Ml) 1 gm in 250 mls @ 167.007 mls/hr IV ONCE ONE; Protocol Stop: 11/12/18 15:43 Ondansetron HCl (Zofran) 4 mg IV Q4H PRN PRN Reason: Nausea And Vomiting Sodium Chloride (Sodium Chloride Flush Syringe 10 Ml) 10 ml IV BID ISABELLA Sodium Chloride (Sodium Chloride Flush Syringe 10 Ml) 10 ml IV PRN PRN PRN Reason: LINE FLUSH Review of Systems ROS unobtainable: due to mental status Constitutional: fatigue, weakness, lethargy Exam - Vital Signs Vital signs: Vital Signs Temp Pulse Resp BP Pulse Ox 101.2 F H 100 H 25 H 153/72 78 L 11/11/18 17:15 11/11/18 17:15 11/11/18 17:15 11/11/18 17:15 11/11/18 17:15 - General Appearance General appearance: appears stated age, chronically ill, fatigue EENT: ATNC, PERRL Neck: Present: neck supple, trachea midline Respiratory: Ronchi, Decreased Breath Sounds Heart: regular, S1S2 Gastrointestinal: Present: normal, normoactive bowel sounds Integumentary: warm and dry Neurologic: confused, other (lethargic, difficult to arouse. ) Musculoskeletal: Present: other (-edema ) Results - Lab Results 11/12/18 03:33 11/12/18 03:33 Most recent lab results Calcium 10.5 mg/dL (8.4-10.2) H 11/12/18 03:33 Phosphorus 3.70 mg/dL (2.5-4.5) 11/11/18 23:15 Assessment and Plan - Patient Problems (1) ESRD (end stage renal disease) Current Visit: Yes Status: Chronic Plan to address problem: Will dialyze on a TTS inpatient HD schedule. (2) Sepsis Current Visit: Yes Status: Acute Plan to address problem: Concerned that his permcath may be a source for sepsis. Have had the dialysis staff obtain two sets of blood cultures from the permcath site. Will await resu lts. He is also being managed for possible pneumonia. Continues on cefepime. Will add one dose of vancomycin 1g IV today. Will favor that patient be transferred from [facility] based on persistent low blood pressures, worsening lethargy and AMS. Discussed with primary attending. Will also consult vascular surgery in regards to possible infected permcath. (3) Pneumonia Current Visit: Yes Status: Acute Qualifiers: Pneumonia type: due to unspecified organism Laterality: unspecified laterality Lung location: unspecified part of lung Qualified Code(s): J18.9 - Pneumonia, unspecified organism Plan to address problem: Continues on cefepime per primary team. 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 Would recommend that we hold off on all blood pressure medications at present time. Important that we maintain adequate MAP >65mmHg (5) Secondary hyperparathyroidism (of renal origin) Current Visit: Yes Status: Acute Plan to address problem: Will monitor his Ca, Phos, and iPTH levels inpatient.
[2018-11-12] MEDS ORDERED: VANCOMYCIN/NS 1 GM/250 ML 1 GM/250 ML BAG IV ONE (15:14)
--- NOTE | 2018-11-12 18:31 | Consultation ---
History of Present Illness - Reason for Consult Consult date: 11/12/18 Permacath Removal Requesting physician: AYAN JACKSON - History of Present Illness The patient is a 73-year-old male with history of end-stage renal disease who is currently on hemodialysis through a right internal jugular permacath. He had creation of a left brachiobasilic arteriovenous fistula, and August 2018, by Dr. George Erickson. His is in the room with him on exam and gives the history. She states that he had dialysis Friday and after dialysis began complaining of generalized body pain prompting her to call 911. Upon presentation to the emergency department the patient was febrile with some mental status changes and had a workup that included a chest x-ray with some suggestion of possible pneumonia. His labs also suggested that he had hyperkalemia. He underwent dialysis today and during dialysis was noted to have some purulence from his permacath tract which was sent for culture. He also had blood cultures drawn through the permacath which are pending. His states that he has been constantly sleepy since admission which is not normal for him. She has no other complaints, nor does the patient who intermittently responded during the evaluation. Past History Past Medical History: CAD, dialysis, hypertension, hyperlipidemia Past Surgical History: Other (permcath placement, creation of left brachial basilic arteriovenous fistula) Social history: no significant social history Family history: no significant family history Medications and Allergies Allergies Allergy/AdvReac Type Severity Reaction Status Date / Time No Known Allergies Allergy Verified 08/27/18 16:19 Home Medications Medication Instructions Recorded Confirmed Last Taken Type Ferrous Sulfate [Iron Supplement 150 mg PO BID 07/31/13 08/27/18 07/14/18 History 325 Mg tab] [place]-3S/Dha/Epa/Fish Oil/D3 [Fish 1 each PO DAILY 07/31/13 09/02/18 09/02/18 05:20 History [id number]-Vit D Softgel] amLODIPine [Norvasc] 10 mg PO DAILY 07/31/13 09/02/18 09/02/18 05:20 History cloNIDine [Catapres] 0.2 mg PO BID 07/31/13 09/02/18 09/02/18 05:20 History Carvedilol [Coreg] 6.25 mg PO BID 05/22/18 09/02/18 09/02/18 05:20 History Ergocalciferol (Vitamin D2) 2,000 unit PO DAILY 05/22/18 09/02/18 09/02/18 05:20 History [Vitamin D2] HYDROcodone/APAP 5-325 [[place] 1 each PO Q6HR PRN #25 tablet 09/02/18 Unknown Rx 5-325 mg TAB] Active Meds: Active Medications Acetaminophen (Tylenol) 650 mg HI Q4H PRN PRN Reason: Pain, Mild (1-3) Sodium Chloride (Nacl 0.9%) 100 mls @ 999 mls/hr IV SISSY PRN PRN Reason: Hypotension Levofloxacin/Dextrose (Levaquin 500mg/100ml) 500 mg in 100 mls @ 100 mls/hr IV Q48H PENDING SALE TO [facility]; Protocol Last Admin: 11/12/18 17:06 Dose: 100 mls/hr Documented by: Ondansetron HCl (Zofran) 4 mg IV Q4H PRN PRN Reason: Nausea And Vomiting Sodium Chloride (Sodium Chloride Flush Syringe 10 Ml) 10 ml IV BID PENDING SALE TO [facility] Last Admin: 11/12/18 17:07 Dose: 10 ml Documented by: Sodium Chloride (Sodium Chloride Flush Syringe 10 Ml) 10 ml IV PRN PRN PRN Reason: LINE FLUSH Review of Systems ROS unobtainable: due to mental status Exam - Constitutional Vitals: Temp Pulse Resp BP Pulse Ox 98.1 F 88 24 100/51 91 11/12/18 16:57 11/12/18 16:57 11/12/18 16:57 11/12/18 16:57 11/12/18 16:57 General appearance: Present: no acute distress, other (somnolent) - Neck Neck: Present: other (permacath evaluated and cuff is exposed and easily mobile with purulence on cuff) - Respiratory Respiratory effort: normal - Extremities Extremities: normal temperature Extremity abnormal: other (left arm with IV and blood pressure cuff, well-healed incision, palpable thrill in brachiobasilic fistula) - Abdominal Male genitourinary: Present: deferred - Rectal Rectal Exam: deferred Results - Labs CBC & Chem 7: 11/12/18 03:33 11/12/18 03:33 Labs: Abnormal lab results 11/11/18 11/11/18 11/11/18 Range/Units 17:45 18:06 19:14 RBC 3.59 L (3.65-5.03) M/mm3 Hgb 10.4 L (11.8-15.2) gm/dl Hct 30.3 L (35.5-45.6) % MCHC (32-34) % Plt Count 134 L (140-440) K/mm3 Seg Neuts % (Manual) 73.0 H (40.0-70.0) % Lymphocytes % (Manual) 6.0 L (13.4-35.0) % Monocytes % (Manual) 16.0 H (0.0-7.3) % Lymphocytes # (Manual) 0.4 L (1.2-5.4) K/mm3 Monocytes # (Manual) 1.1 H (0.0-0.8) K/mm3 Potassium (3.6-5.0) mmol/L Chloride (98-107) mmol/L BUN (9-20) mg/dL Creatinine (0.8-1.5) mg/dL Glucose (75-100) mg/dL Calcium (8.4-10.2) mg/dL Total Creatine Kinase 366 H (55-170) units/L Troponin T (0.00-0.029) ng/mL Triglycerides 380 H (2-149) mg/dL LDL Cholesterol Direct 8 L (50-130) mg/dL HDL Cholesterol 8 L (40-59) mg/dL 11/11/18 11/12/18 11/12/18 Range/Units 23:15 03:33 03:33 RBC 3.54 L (3.65-5.03) M/mm3 Hgb 10.3 L (11.8-15.2) gm/dl Hct 30.0 L (35.5-45.6) % MCHC 35 H (32-34) % Plt Count 61 L (140-440) K/mm3 Seg Neuts % (Manual) (40.0-70.0) % Lymphocytes % (Manual) (13.4-35.0) % Monocytes % (Manual) (0.0-7.3) % Lymphocytes # (Manual) (1.2-5.4) K/mm3 Monocytes # (Manual) (0.0-0.8) K/mm3 Potassium 5.1 H (3.6-5.0) mmol/L Chloride 92.5 L (98-107) mmol/L BUN 103 H (9-20) mg/dL Creatinine 12.5 H (0.8-1.5) mg/dL Glucose 158 H (75-100) mg/dL Calcium 10.5 H (8.4-10.2) mg/dL Total Creatine Kinase 390 H (55-170) units/L Troponin T 0.283 H* D (0.00-0.029) ng/mL Triglycerides (2-149) mg/dL LDL Cholesterol Direct (50-130) mg/dL HDL Cholesterol (40-59) mg/dL 11/12/18 Range/Units 03:33 RBC (3.65-5.03) M/mm3 Hgb (11.8-15.2) gm/dl Hct (35.5-45.6) % MCHC (32-34) % Plt Count (140-440) K/mm3 Seg Neuts % (Manual) (40.0-70.0) % Lymphocytes % (Manual) (13.4-35.0) % Monocytes % (Manual) (0.0-7.3) % Lymphocytes # (Manual) (1.2-5.4) K/mm3 Monocytes # (Manual) (0.0-0.8) K/mm3 Potassium (3.6-5.0) mmol/L Chloride (98-107) mmol/L BUN (9-20) mg/dL Creatinine (0.8-1.5) mg/dL Glucose (75-100) mg/dL Calcium (8.4-10.2) mg/dL Total Creatine Kinase 363 H (55-170) units/L Troponin T 0.274 H* (0.00-0.029) ng/mL Triglycerides (2-149) mg/dL LDL Cholesterol Direct (50-130) mg/dL HDL Cholesterol (40-59) mg/dL Assessment and Plan Patient is a 73-year-old male with a history of end-stage renal disease who was admitted with mental status changes and generalized body pain. He was noted to have purulence from his permacath tract and on evaluation has an exposed cuff with purulence on the cuff. At this time he needs his permacath removed. He also needs the IV removed from his left arm and in order stating that he is to have no further blood pressures, lab draws, or IVs placed in his left arm. He has a left brachial basilic arteriovenous fistula that has a palpable thrill however it is not adequate for cannulation as it needs to be elevated prior to use. He will require permacath replacement pending blood cultures and antibiotic management. If he can tolerate several days without dialysis we will wait until next week to place a permacath. If he is unable to wait until next week for permacath placement he will require a Vas-Cath in the interim.
--- NOTE | 2018-11-12 18:40 | Operative Report ---
Operative Report Operative Report: Date of Procedure: 11/12/2018 Pre-operative Diagnosis: Permacath Infection Post-operative Diagnosis: Same Procedure(s): 1. Removal of Right Internal Jugular Permacath Surgeon: Abbe Sinha M.D. Indexer: None Anesthesia: None EBL: None Counts: Correct Complications: None Condition: Stable Findings: Purulence noted on the expose permacath cuff Specimen: Permacath tip sent for culture Indication: The patient is a 73-year-old male who was admitted with mental status changes and possible permacath infection. On evaluation he was noted to have an expose permacath cuff with purulence. It was felt that he will require permacath removal. He and his were given the risk, benefits, and alternative procedures and consented to the procedure. Description of Procedure: The procedure was performed at the patient's bedside. His right chest was prepped and draped in normal sterile fashion. The permacath was removed and pressure was held on the right neck until hemostasis was achieved. The tip of the catheter was then cut and place and a sterile specimen cup for culture. A sterile dressing was then applied to the patient's exit site on the chest. The patient tolerated the procedure well and remained in his room in stable condition.
[2018-11-12] MEDS ORDERED: VANCOMYCIN PHARMACY TO DOSE IV SCH (19:00)
[2018-11-12] MEDS ORDERED: CEFEPIME/NS 1 GM/100 ML 1 GM/100 ML BAG IV SCH ×2 (22:00)
[2018-11-13] MEDS: ACETAMINOPHEN 650 MG RECT SUPP PR PRN ×2 (01:31→22:07)
[2018-11-13 05:50] LABS: Calcium 10.1 mg/dL (8.4-10.2)
[2018-11-13] MEDS ORDERED: SODIUM POLYSTYRENE 15 GM/60 ML ORAL LIQD PO ONE (06:10)
[2018-11-13] MEDS ORDERED: INSULIN REGULAR, HUMAN 100 UNITS/1 ML SUB-Q ONE (06:11)
[2018-11-13] MEDS ORDERED: CALCIUM CHLORIDE 1,000 MG/10 ML SYRINGE IV ONE (06:11)
[2018-11-13] MEDS ORDERED: SODIUM BICARB 8.4% 50 MEQ/50 ML SYRINGE IV ONE (06:11)
[2018-11-13] MEDS ORDERED: DEXTROSE 50% IN WATER (25GM) 50 ML SYRINGE IV ONE (06:12)
--- NOTE | 2018-11-13 06:14 | Event Note ---
Date: 11/13/18 Potassium 6.5. Kayexalate 60 mg, hyperkalemic cocktail given. follow up potassium level
[2018-11-13 07:54] LABS: Hematocrit 31.7 % (35.5-45.6); Hemoglobin 10.7 gm/dl (11.8-15.2); Mean Corpuscular HGB Conc 34 % (32-34); Mean Corpuscular Volume 85 fl (84-94); Red Blood Count 3.75 M/mm3 (3.65-5.03); Red Cell Distribution Width 15.6 % (13.2-15.2)
[2018-11-13 08:05] LABS: Platelet Count 73 K/mm3 (140-440)
[2018-11-13] MEDS ORDERED: HEPARIN/NS 5000 UNIT/500ML 500 ML IR ONE (09:53)
[2018-11-13] MEDS ORDERED: HEPARIN 10,000 UNITS/10 ML VIAL ONE (09:53)
[2018-11-13] MEDS ORDERED: LIDOCAINE (2%) 20 MG/1 ML VIAL 20 ML MDV INFILTRATI ONE (09:53)
[2018-11-13] MEDS ORDERED: fentaNYL 100 MCG/2 ML INJ ONE (09:54)
[2018-11-13] MEDS ORDERED: SODIUM CHLORIDE 0.9% 500 ML 500 ML ONE (10:28)
[2018-11-13] MEDS: MIDAZOLAM 2 MG/2 ML INJ ONE ×2 (10:38→10:40)
--- NOTE | 2018-11-13 10:53 | Operative Report ---
Operative Report Operative Report: Exam: Ultrasound and fluoroscopic guided placement of Vas-Cath Clinical indication: Patient with end-stage renal disease requiring immediate dialysis access Date: 11/13/2018 Procedure: Following an explanation of the risks, benefits and alternatives; written informed consent was obtained. The patient was brought to the angiographic suite and placed in supine position on the examination table. Initial ultrasound evaluation of his groin demonstrated a patent right common femoral vein. The patient's right groin was prepped and draped in usual sterile fashion. 1% lidocaine was used for anesthesia. Under ultrasound guidance, the right common femoral vein was cannulated with a 7 cm 18-gauge needle. A 0.035 guidewire was centrally under fluoroscopy. The needle was removed and following serial dilation over the guidewire, a 30 cm 13 [place] dialysis catheter was advanced over the guidewire centrally. The guidewire was removed. Nonpulsatile blood returned from all 3 ports. The catheter was flushed and locked with appropriate volumes of heparin. The catheter was securely fastened skin surface using 2-0 Ethilon suture and a sterile dressing applied. The patient tolerated the procedure well. There were no immediate post procedure complications. Conscious sedation was not utilized. 1 mg of Versed was given for anxiolysis. Continuous cardio pulmonary monitoring was utilized. Impression: Ultrasound and fluoroscopic guided placement of Vas-Cath via the right common femoral vein.
--- NOTE | 2018-11-13 11:02 | Progress Note ---
Assessment and Plan Assessment and plan: --Infected permacath; empiric antibiotics, follow cultures ID consult, vascular following, s/p Vascath placement today --ESRD on dialysdis; hemodialysis per schedule nephrology following, Avoid nephrotoxins, --Community-acquired pneumonia: Empiric antibiotics, cultures, Supportive care --History of Dysphagia; speech and swallow evaluated the patient Cleared for oral diet --Hyperkalemia; calcium chloride, hemodialysis per schedule Monitor electrolytes --Hypertension; moderate control Closely monitor blood pressures and adjust as needed --Thrombocytopenia; no evidence of bleeding Closely monitor platelets, consult hematology if needed --DVT prophylaxis; heparin renal dose Monitor closely and adjust management as needed Discussed with fig caprifier who recommended transfer the patient to IMCU Discussed with IMCU charge informed of the possible transfer Critical care time 32 minutes History Interval history: Patient seen and examined medical records reviewed Hospitalist Physical - Constitutional Vitals: Temp Pulse Resp BP Pulse Ox 98.9 F 102 H 16 108/67 92 11/13/18 08:51 11/13/18 09:31 11/13/18 09:31 11/13/18 10:01 11/13/18 10:01 General appearance: Present: mild distress, well-nourished - EENT Eyes: Present: PERRL, EOM intact - Neck Neck: Present: supple, normal ROM - Respiratory Respiratory effort: normal Respiratory: bilateral: diminished, negative: rales, rhonchi, wheezing - Cardiovascular Rhythm: regular Heart Sounds: Present: S1 & S2 - Extremities Extremities: no ischemia, No edema - Abdominal General gastrointestinal: soft, non-tender, non-distended, normal bowel sounds - Integumentary Integumentary: Present: clear, warm - Psychiatric Psychiatric: appropriate mood/affect, cooperative - Neurologic Neurologic: moves all extremities Results - Labs CBC & Chem 7: 11/13/18 07:29 11/13/18 05:07 Labs: Laboratory Last Values WBC 13.4 K/mm3 (4.5-11.0) H 11/13/18 07:29 RBC 3.75 M/mm3 (3.65-5.03) 11/13/18 07:29 Hgb 10.7 gm/dl (11.8-15.2) L 11/13/18 07:29 Hct 31.7 % (35.5-45.6) L 11/13/18 07:29 MCV 85 fl (84-94) 11/13/18 07:29 MCH 29 pg (28-32) 11/13/18 07:29 MCHC 34 % (32-34) 11/13/18 07:29 RDW 15.6 % (13.2-15.2) H 11/13/18 07:29 Plt Count 73 K/mm3 (140-440) L 11/13/18 07:29 Lymph % (Auto) [employer] 11/11/18 19:14 [place] % (Auto) [employer] 11/13/18 07:29 Eos % (Auto) [employer] 11/11/18 19:14 Baso % (Auto) [employer] 11/11/18 19:14 Lymph # [employer] 11/11/18 19:14 [place] # [employer] 11/11/18 19:14 Eos # [employer] 11/11/18 19:14 Baso # [employer] 11/11/18 19:14 Add Manual Diff Complete 11/12/18 03:33 Total Counted 100 11/12/18 03:33 Seg Neutrophils % [employer] 11/11/18 19:14 Seg Neuts % (Manual) 63.0 % (40.0-70.0) 11/12/18 03:33 4.0 % 11/12/18 03:33 26.0 % (13.4-35.0) 11/12/18 03:33 Reactive Lymphs % (Man) 0 % 11/12/18 03:33 2.0 % (0.0-7.3) 11/12/18 03:33 0 % (0.0-4.3) 11/12/18 03:33 0 % (0.0-1.8) 11/12/18 03:33 5.0 % 11/12/18 03:33 0 % 11/12/18 03:33 0 % 11/12/18 03:33 0 % 11/12/18 03:33 Nucleated RBC % Not Reportable 11/12/18 03:33 Seg Neutrophils # [employer] 11/11/18 19:14 Seg Neutrophils # Man 3.9 K/mm3 (1.8-7.7) 11/12/18 03:33 Band Neutrophils # 0.2 K/mm3 11/12/18 03:33 1.6 K/mm3 (1.2-5.4) 11/12/18 03:33 Abs React Lymphs (Man) 0.0 K/mm3 11/12/18 03:33 0.1 K/mm3 (0.0-0.8) 11/12/18 03:33 0.0 K/mm3 (0.0-0.4) 11/12/18 03:33 0.0 K/mm3 (0.0-0.1) 11/12/18 03:33 0.3 K/mm3 11/12/18 03:33 0.0 K/mm3 11/12/18 03:33 0.0 K/mm3 11/12/18 03:33 Blast Cells # 0.0 K/mm3 11/12/18 03:33 WBC Morphology Not Reportable 11/12/18 03:33 Hypersegmented Neuts Not Reportable 11/12/18 03:33 Hyposegmented Neuts Not Reportable 11/12/18 03:33 Hypogranular Neuts Not Reportable 11/12/18 03:33 Not Reportable 11/12/18 03:33 Not Reportable 11/12/18 03:33 Not Reportable 11/12/18 03:33 Not Reportable 11/12/18 03:33 Not Reportable 11/12/18 03:33 Not Reportable 11/12/18 03:33 Consistent w auto 11/12/18 03:33 Not Reportable 11/12/18 03:33 Plt Clumps, EDTA Not Reportable 11/12/18 03:33 Not Reportable 11/12/18 03:33 Not Reportable 11/12/18 03:33 Not Reportable 11/12/18 03:33 Plt Morphology Comment Not Reportable 11/12/18 03:33 RBC Morphology Not Reportable 11/12/18 03:33 Dimorphic RBCs Not Reportable 11/12/18 03:33 Not Reportable 11/12/18 03:33 Not Reportable 11/12/18 03:33 Not Reportable 11/12/18 03:33 Few 11/12/18 03:33 Not Reportable 11/12/18 03:33 Not Reportable 11/12/18 03:33 Not Reportable 11/12/18 03:33 Not Reportable 11/12/18 03:33 Not Reportable 11/12/18 03:33 Not Reportable 11/12/18 03:33 Not Reportable 11/12/18 03:33 Not Reportable 11/12/18 03:33 Not Reportable 11/12/18 03:33 Not Reportable 11/12/18 03:33 Not Reportable 11/12/18 03:33 Not Reportable 11/12/18 03:33 Not Reportable 11/12/18 03:33 Not Reportable 11/12/18 03:33 Not Reportable 11/12/18 03:33 Acanthocytes (Spur) Not Reportable 11/12/18 03:33 Rouleaux Not Reportable 11/12/18 03:33 Not Reportable 11/12/18 03:33 Not Reportable 11/12/18 03:33 Not Reportable 11/12/18 03:33 Not Reportable 11/12/18 03:33 Hem Pathologist Commnt No 11/12/18 03:33 Sodium 135 mmol/L (137-145) L 11/13/18 05:07 Potassium 6.5 mmol/L (3.6-5.0) H* D 11/13/18 05:07 Chloride 91.7 mmol/L (98-107) L 11/13/18 05:07 Carbon Dioxide 20 mmol/L (22-30) L 11/13/18 05:07 30 mmol/L 11/13/18 05:07 BUN 71 mg/dL (9-20) H 11/13/18 05:07 7.2 mg/dL (0.8-1.5) H 11/13/18 05:07 Estimated GFR 9 ml/min 11/13/18 05:07 10 % 11/13/18 05:07 Glucose 138 mg/dL (75-100) H 11/13/18 05:07 Lactic Acid 2.00 mmol/L (0.7-2.0) 11/11/18 17:45 Calcium 10.1 mg/dL (8.4-10.2) 11/13/18 05:07 Phosphorus 3.70 mg/dL (2.5-4.5) 11/11/18 23:15 0.80 mg/dL (0.1-1.2) 11/11/18 17:45 AST 35 units/L (5-40) 11/11/18 17:45 ALT 12 units/L (7-56) 11/11/18 17:45 88 units/L (35-129) 11/11/18 17:45 363 units/L (55-170) H 11/12/18 03:33 CK-MB (CK-2) 4.0 ng/mL (0.0-4.0) 11/12/18 03:33 CK-MB (CK-2) Rel Index 1.1 (0-4) 11/12/18 03:33 0.274 ng/mL (0.00-0.029) H* 11/12/18 03:33 8.0 g/dL (6.3-8.2) 11/11/18 17:45 3.1 g/dL (3.9-5) L 11/11/18 17:45 0.6 % 11/11/18 17:45 Triglycerides 380 mg/dL (2-149) H 11/11/18 17:45 Cholesterol 117 mg/dL (50-199) 11/11/18 17:45 8 mg/dL (50-130) L 11/11/18 17:45 8 mg/dL (40-59) L 11/11/18 17:45 14.62 % 11/11/18 17:45 Hepatitis A IgM Ab Non-reactive (NonReactive) 11/12/18 10:01 Hep Bs Antigen Non-reactive (Negative) 11/12/18 10:01 Hep B Core IgM Ab Non-reactive (NonReactive) 11/12/18 10:01 Non-reactive (NonReactive) 11/12/18 10:01 Active Medications - Current Medications Current Medications: Generic Name Dose Route Start Last Admin Trade Name Freq PRN Reason Stop Dose Admin Acetaminophen 650 mg 11/11/18 23:03 11/13/18 01:31 Tylenol ID 650 mg Q4H PRN Administration Pain, Mild (1-3) Sodium Chloride 100 mls @ 999 mls/hr 11/12/18 09:38 Nacl 0.9% IV SISSY PRN Hypotension Cefepime HCl 1 gm in 100 mls @ 200 mls/hr 11/12/18 22:00 11/13/18 01:31 Maxipime/Ns 1 Gm/100 Ml IV 200 mls/hr Q24H ISABELLA Administration Protocol Ondansetron HCl 4 mg 11/11/18 22:59 11/13/18 01:31 Zofran IV 4 mg Q4H PRN Administration Nausea And Vomiting Sodium Chloride 10 ml 11/12/18 10:00 11/13/18 10:06 Sodium Chloride Flush Syringe 10 Ml IV 10 ml BID ISABELLA Administration Sodium Chloride 10 ml 11/11/18 22:59 Sodium Chloride Flush Syringe 10 Ml IV PRN PRN LINE FLUSH Nutrition/Malnutrition Assess - Dietary Evaluation Nutrition/Malnutrition Findings: Nutrition Notes Start: 11/12/18 14:51 Freq: Status: Active Protocol: Document 11/12/18 14:51 RS (Rec: 11/12/18 15:01 RS [id number]) Co-Sign 11/12/18 14:51 RM Nutrition Notes Need for Assessment generated from: copy and print associate,MST Initial or Follow up Brief Note Current Diagnosis CKD (stage V CKD),Hypertension Other Pertinent Diagnosis ESRD on HD, Hyperparathyroidism, Dysphagia , Pneu Current Diet Renal Labs/Tests reviewed Pertinent Medications reviewed Height 5 ft 6 in Weight 73.5 kg [place] Body Weight (kg) 64.54 BMI 26.1 Subjective/Other Information Pt consulted for MST. Went to visit pt x2 and was asleep both times. Pt was NPO earlier today and was switched to renal diet later today. Burn Absent Trauma Absent Nutrition Intervention Follow-Up By: 11/13/18
[2018-11-13 11:16] LABS: Band Neutrophils # (Manual) 1.3 K/mm3; Basophils % (Manual) 0 % (0.0-1.8); Eosinophils % (Manual) 0 % (0.0-4.3); Total Cells Counted 100
[2018-11-13 11:18] LABS: Anisocytosis Few; Platelet Estimate Consistent w Auto; Target Cells Few
--- NOTE | 2018-11-13 12:06 | Consultation ---
History of Present Illness - Reason for Consult Consult date: 11/13/18 - History of Present Illness 73 yo M PMHx HTN, ESRD on HD, hyperparathyroidism, OA admitted to the hospital for SoB. He failed a swallow exam in the ER. For his dialysis he had an RIJ permacath, and it was noted that there was purulent drainage from the site of insertion of the cath. The cath was subsequently removed, and then replaced with an R femoral line. It is difficult to obtain a history due to his altered mental status. Febrile in the ER to 101.2. He is tachycardic. White count was normal on admission, however it jumped after his procedures to 13.4. 11/12 cath and wound cultures are growing S aureus pending finaliaztion. Peripheral blood cultures NGTD. He is currently receiving cefepime and vancomycin. Imaging personally reviewed: CXR: severe bilateral airspace disease, unclear if related to pneumonia or edema. Past History Past Medical History: CAD, dialysis, hypertension, hyperlipidemia Past Surgical History: Other (permcath placement, creation of left brachial basilic arteriovenous fistula) Social history: no significant social history Family history: hypertension Medications and Allergies Allergies Allergy/AdvReac Type Severity Reaction Status Date / Time No Known Allergies Allergy Verified 08/27/18 16:19 Home Medications Medication Instructions Recorded Confirmed Last Taken Type Ferrous Sulfate [Iron Supplement 150 mg PO BID 07/31/13 08/27/18 07/14/18 History 325 Mg tab] [place]-3S/Dha/Epa/Fish Oil/D3 [Fish 1 each PO DAILY 07/31/13 09/02/18 09/02/18 05:20 History Sbu-Qhwsi-4-Vit D Softgel] amLODIPine [Norvasc] 10 mg PO DAILY 07/31/13 09/02/18 09/02/18 05:20 History cloNIDine [Catapres] 0.2 mg PO BID 07/31/13 09/02/18 09/02/18 05:20 History Carvedilol [Coreg] 6.25 mg PO BID 05/22/18 09/02/18 09/02/18 05:20 History Ergocalciferol (Vitamin D2) 2,000 unit PO DAILY 05/22/18 09/02/18 09/02/18 05:20 History [Vitamin D2] HYDROcodone/APAP 5-325 [[place] 1 each PO Q6HR PRN #25 tablet 09/02/18 Unknown Rx 5-325 mg TAB] Active Meds: Active Medications Acetaminophen (Tylenol) 650 mg ND Q4H PRN PRN Reason: Pain, Mild (1-3) Last Admin: 11/13/18 01:31 Dose: 650 mg Documented by: Sodium Chloride (Nacl 0.9%) 100 mls @ 999 mls/hr IV SISSY PRN PRN Reason: Hypotension Cefepime HCl (Maxipime/Ns 1 Gm/100 Ml) 1 gm in 100 mls @ 200 mls/hr IV Q24H ISABELLA; Protocol Last Admin: 11/13/18 01:31 Dose: 200 mls/hr Documented by: Ondansetron HCl (Zofran) 4 mg IV Q4H PRN PRN Reason: Nausea And Vomiting Last Admin: 11/13/18 01:31 Dose: 4 mg Documented by: Sodium Chloride (Sodium Chloride Flush Syringe 10 Ml) 10 ml IV BID ISABELLA Last Admin: 11/13/18 10:06 Dose: 10 ml Documented by: Sodium Chloride (Sodium Chloride Flush Syringe 10 Ml) 10 ml IV PRN PRN PRN Reason: LINE FLUSH Review of Systems ROS unobtainable: due to mental status Physical Examination - Physical Exam Narrative exam: General Normal appearance, well developed, no acute distress Eyes - PERRLA, EOM intact ENT - Moist mucous membranes, no lymphadenopathy Neck - No noticeable or palpable swelling, redness or rash around throat or on face Lymph Nodes - No lymphadenopathy Cardiovascular - RRR no m/r/g, no JVD, no carotid bruits Lungs - Clear to auscultation, no use of accessory muscles, no crackles or wheezes. Skin - No rashes, skin warm and dry, no erythematous areas Abdomen - Normal bowel sounds, abdomen soft and nontender Extremities - No edema, cyanosis or clubbing Musculoskeletal - 5/5 strength, normal range of motion, no swollen or erythematous joints. Neurological Alert and oriented x 3, CN 2-12 grossly intact. - Constitutional Vitals: Vital Signs Temp Pulse Resp BP Pulse Ox 98.9 F 102 H 16 108/67 92 11/13/18 08:51 11/13/18 09:31 11/13/18 09:31 11/13/18 10:01 11/13/18 10:01 Temperature -Last 24 Hours Temperature 98.9 F Temperature 98.6 F Temperature 98.5 F Temperature 98.8 F Temperature 98.1 F Temperature 98.7 F Results - Labs CBC & Chem 7: 11/13/18 07:29 11/13/18 05:07 Labs: Abnormal lab results 11/13/18 11/13/18 Range/Units 05:07 07:29 WBC 13.4 H (4.5-11.0) K/mm3 Hgb 10.7 L (11.8-15.2) gm/dl Hct 31.7 L (35.5-45.6) % RDW 15.6 H (13.2-15.2) % Plt Count 73 L (140-440) K/mm3 Seg Neuts % (Manual) 72.0 H (40.0-70.0) % Lymphocytes % (Manual) 9.0 L (13.4-35.0) % Seg Neutrophils # Man 9.6 H (1.8-7.7) K/mm3 Sodium 135 L (137-145) mmol/L Potassium 6.5 H* D (3.6-5.0) mmol/L Chloride 91.7 L (98-107) mmol/L Carbon Dioxide 20 L (22-30) mmol/L BUN 71 H (9-20) mg/dL Creatinine 7.2 H (0.8-1.5) mg/dL Glucose 138 H (75-100) mg/dL Assessment and Plan Cultures: BCx 11/12 cath - S aureus BCx peripheral 11/12 - NGTD Assessment: 73 yo M PMHx HTN, ESRD on HD, hyperparathyroidism, OA admitted with renal failure and a vascular catheter infection. 1. Vascular catheter infection - peripheral cultures still negative, but would not be surprised if they become positive. Infected catheter already removed, patient on vancomycin. Duration pending peripheral cultures results. Possible de-escalation based on sensitivities. 2. Pneumonia - vs fluid overload, difficult to tell given systemic symptoms from line infection. Continue with cefepime for now, likely short course of 5 days assuming improvement, especially if radiographic improvement following fluid removal following dialysis. 3. ESRD on HD - renally dose antibiotics 4. HTN 5. Hyperparathyroidism. Recs: - Start vancomycin dosed per pharmacy. Appreciate their assistance. Goal trough 15-20. - follow vanc troughs while on vancomycin - continue cefepime 2g q24h - follow up cultures for MICs. Thank you for the consult, we will continue to follow. Sarah Kenyon MD [facility] ([facility]) M: [phone] O: [phone] F: [phone]
[2018-11-13 12:26] LABS: Dohle Bodies 1+
[2018-11-13] MEDS ORDERED: CEFEPIME/NS 2 GM/100 ML 2 GM/100 ML BAG IV SCH (13:00)
[2018-11-13] MEDS ORDERED: SODIUM CHLORIDE 0.9% 100 ML IV PRN (13:19)
--- NOTE | 2018-11-13 14:26 | Progress Note ---
Assessment and Plan - Patient Problems (1) ESRD (end stage renal disease) Current Visit: Yes Status: Chronic Plan to address problem: Will dialyze on a TTS inpatient HD schedule. Dialyze extra session today for 2 hrs without any UF, for clearance and c orrection of his hyperkalemia. (2) Sepsis Current Visit: Yes Status: Acute Plan to address problem: Concerned that his permcath may be a source for sepsis. s/p permcath removal and placement of temporary right femoral trialysis catheter. ID recommendations appreciated. Continues on vancomycin and cefepime. Pharmacy to dose vancomycin. Will monitor closely. (3) Pneumonia Current Visit: Yes Status: Acute Qualifiers: Pneumonia type: due to unspecified organism Laterality: unspecified laterality Lung location: unspecified part of lung Qualified Code(s): J18.9 - Pneumonia, unspecified organism Plan to address problem: Continues on cefepime per primary team. 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 Would recommend that we hold off on all blood pressure medications at present time. Important that we maintain adequate MAP >65mmHg (5) Secondary hyperparathyroidism (of renal origin) Current Visit: Yes Status: Acute Plan to address problem: Will monitor his Ca, Phos, and iPTH levels inpatient. Subjective Date of service: 11/13/18 Interval history: Seen in the ICU. ID/vascular consults reviewed. His permcath has been removed at this time. Preliminary results from wound and catheter tip cultures indicating staph Aureus infection. He had a right femoral trialysis catheter placed. Labs noted, significant for hyperkalemia. He is going to be dialyzed for short session today essentially for clearance and correction of the hyperkalemia. Objective - Vital Signs Vital signs: Vital Signs - 12hr 11/13/18 11/13/18 11/13/18 02:30 03:00 03:30 Temperature Pulse Rate 111 H 106 H 119 H Pulse Rate [ From Monitor] Respiratory 26 H 14 23 Rate Blood Pressure 107/66 107/57 106/66 O2 Sat by Pulse 93 95 95 Oximetry 11/13/18 11/13/18 11/13/18 04:00 04:14 04:31 Temperature 98.6 F Pulse Rate 115 H 88 102 H Pulse Rate [ From Monitor] Respiratory 16 18 Rate Blood Pressure 120/72 104/77 O2 Sat by Pulse 77 L Oximetry 11/13/18 11/13/18 11/13/18 04:32 05:01 05:30 Temperature Pulse Rate 98 H 116 H Pulse Rate [ 112 H From Monitor] Respiratory 18 30 H 34 H Rate Blood Pressure 123/65 124/55 O2 Sat by Pulse 99 90 90 Oximetry 11/13/18 11/13/18 11/13/18 06:01 06:31 07:01 Temperature Pulse Rate 112 H 110 H 103 H Pulse Rate [ From Monitor] Respiratory 30 H 19 32 H Rate Blood Pressure 124/55 124/55 107/68 O2 Sat by Pulse 83 L 88 91 Oximetry 11/13/18 11/13/18 11/13/18 07:31 08:00 08:30 Temperature Pulse Rate 109 H 117 H 121 H Pulse Rate [ 117 H From Monitor] Respiratory 32 H 34 H 20 Rate Blood Pressure 119/62 110/65 119/73 O2 Sat by Pulse 88 90 90 Oximetry 11/13/18 11/13/18 11/13/18 08:51 09:01 09:31 Temperature 98.9 F Pulse Rate 106 H 102 H Pulse Rate [ From Monitor] Respiratory 20 16 Rate Blood Pressure 105/68 105/68 O2 Sat by Pulse 89 94 Oximetry 11/13/18 11/13/18 11/13/18 09:43 10:01 11:18 Temperature Pulse Rate Pulse Rate [ From Monitor] Respiratory Rate Blood Pressure 108/67 106/67 O2 Sat by Pulse 92 92 92 Oximetry 11/13/18 11/13/18 11/13/18 11:30 12:00 12:31 Temperature Pulse Rate 100 H 99 H 117 H Pulse Rate [ 99 H From Monitor] Respiratory 30 H 26 H 13 Rate Blood Pressure 119/59 104/67 104/67 O2 Sat by Pulse 90 91 Oximetry 11/13/18 14:12 Temperature Pulse Rate Pulse Rate [ From Monitor] Respiratory Rate Blood Pressure O2 Sat by Pulse 95 Oximetry - General Appearance General appearance: chronically ill, fatigue EENT: ATNC, PERRL Neck: no JVD, no thyromegaly Respiratory: Present: Decreased Breath Sounds Cardiology: regular, S1S2 Gastrointestinal: normal, normoactive bowel sounds Integumentary: warm and dry Neurologic: other (lethargic) Musculoskeletal: other (-edema ) - Lab 11/13/18 07:29 11/13/18 05:07 Most recent lab results Calcium 10.1 mg/dL (8.4-10.2) 11/13/18 05:07 Phosphorus 3.70 mg/dL (2.5-4.5) 11/11/18 23:15 - Imaging Chest x-ray: report reviewed - Allied health notes Allied health notes reviewed: nursing Medications & Allergies - Medications Allergies/Adverse Reactions: Allergies No Known Allergies Allergy (Verified 08/27/18 16:19) Home Medications: Home Medications Medication Instructions Recorded Confirmed Last Taken Type Ferrous Sulfate [Iron Supplement 150 mg PO BID 07/31/13 08/27/18 07/14/18 History 325 Mg tab] [place]-3S/Dha/Epa/Fish Oil/D3 [Fish 1 each PO DAILY 07/31/13 09/02/18 09/02/18 05:20 History Ezg-Lmuvm-0-Vit D Softgel] amLODIPine [Norvasc] 10 mg PO DAILY 07/31/13 09/02/18 09/02/18 05:20 History cloNIDine [Catapres] 0.2 mg PO BID 07/31/13 09/02/18 09/02/18 05:20 History Carvedilol [Coreg] 6.25 mg PO BID 05/22/18 09/02/18 09/02/18 05:20 History Ergocalciferol (Vitamin D2) 2,000 unit PO DAILY 05/22/18 09/02/18 09/02/18 05:20 History [Vitamin D2] HYDROcodone/APAP 5-325 [[place] 1 each PO Q6HR PRN #25 tablet 09/02/18 Unknown Rx 5-325 mg TAB] Active Medications: Generic Name Dose Route Start Last Admin Trade Name Freq PRN Reason Stop Dose Admin Acetaminophen 650 mg 11/11/18 23:03 11/13/18 01:31 Tylenol [place] 650 mg Q4H PRN Administration Pain, Mild (1-3) Sodium Chloride 100 mls @ 999 mls/hr 11/12/18 09:38 Nacl 0.9% IV SISSY PRN Hypotension Cefepime HCl 2 gm in 100 mls @ 200 mls/hr 11/13/18 13:00 Maxipime/Ns 2 Gm/100 Ml IV Q24H ISABELLA Protocol Sodium Chloride 100 mls @ 999 mls/hr 11/13/18 13:19 Nacl 0.9% IV SISSY PRN Hypotension Ondansetron HCl 4 mg 11/11/18 22:59 11/13/18 01:31 Zofran IV 4 mg Q4H PRN Administration Nausea And Vomiting Sodium Chloride 10 ml 11/12/18 10:00 11/13/18 10:06 Sodium Chloride Flush Syringe 10 Ml IV 10 ml BID ISABELLA Administration Sodium Chloride 10 ml 11/11/18 22:59 Sodium Chloride Flush Syringe 10 Ml IV PRN PRN LINE FLUSH
[2018-11-13] MEDS ORDERED: SODIUM CHLORIDE 0.9% 1000 ML 2,000 ML ONE (16:39)
[2018-11-13] MEDS: CEFEPIME/NS 2 GM/100 ML 2 GM/100 ML BAG IV SCH (17:41)
[2018-11-14] MEDS ORDERED: CALCIUM GLUCONATE 1,000 MG in SODIUM CHLORIDE 0.9% 100 ML IV ONE (08:21)
[2018-11-14] MEDS ORDERED: SODIUM POLYSTYRENE 15 GM/60 ML ORAL LIQD PO ONE (08:21)
[2018-11-14] MEDS ORDERED: VANCOMYCIN 1,500 MG in SODIUM CHLORIDE 0.9% 500 ML 500 ML IV ONE (09:00)
--- NOTE | 2018-11-14 10:41 | Progress Note ---
Assessment and Plan Assessment and plan: --Hyperkalemia; calcium gluconate, Kayexalate hemodialysis per schedule,Monitor electrolytes --Infected permacath; empiric antibiotics, follow cultures ID consult, s/p vascath placement --Sepsis secondary to MSSA; Continue vancomycin and cefepime, ID following --ESRD on dialysdis; nephrology following Avoid nephrotoxins, Ht per schedule --Community-acquired pneumonia: Empiric antibiotics, cultures, Supportive care --History of Dysphagia; speech and swallow evaluated the patient Cleared for oral diet, no symptoms of dysphagia --Hypertension; moderate control Closely monitor blood pressures and adjust as needed --Thrombocytopenia; no evidence of bleeding Closely monitor platelets, consult hematology if needed --DVT prophylaxis; heparin renal dose Monitor closely and adjust management as needed Patient is stable to be transferred out of IMCU to medical floor Plan of care is reviewed with the patient and his nurse Critical care time 32 minutes History Interval history: Patient seen and examined medical records reviewed patient feels slightly better no new complaints Potassium is high, alert awake oriented Vital signs reviewed Hospitalist Physical - Constitutional Vitals: Temp Pulse Resp BP Pulse Ox 98.3 F 100 H 29 H 119/69 95 11/14/18 03:57 11/14/18 06:30 11/14/18 06:30 11/14/18 06:30 11/14/18 09:44 General appearance: Present: no acute distress, well-nourished - EENT Eyes: Present: PERRL, EOM intact - Neck Neck: Present: supple, normal ROM - Respiratory Respiratory effort: normal Respiratory: bilateral: diminished, negative: rales, rhonchi, wheezing - Cardiovascular Rhythm: regular Heart Sounds: Present: S1 & S2 - Extremities Extremities: no ischemia, No edema - Abdominal General gastrointestinal: soft, non-tender, non-distended, normal bowel sounds - Integumentary Integumentary: Present: clear, warm - Psychiatric Psychiatric: appropriate mood/affect, cooperative - Neurologic Neurologic: CNII-XII intact, moves all extremities Results - Labs CBC & Chem 7: 11/13/18 07:29 11/13/18 05:07 Labs: Laboratory Last Values WBC 13.4 K/mm3 (4.5-11.0) H 11/13/18 07:29 RBC 3.75 M/mm3 (3.65-5.03) 11/13/18 07:29 Hgb 10.7 gm/dl (11.8-15.2) L 11/13/18 07:29 Hct 31.7 % (35.5-45.6) L 11/13/18 07:29 MCV 85 fl (84-94) 11/13/18 07:29 MCH 29 pg (28-32) 11/13/18 07:29 MCHC 34 % (32-34) 11/13/18 07:29 RDW 15.6 % (13.2-15.2) H 11/13/18 07:29 Plt Count 73 K/mm3 (140-440) L 11/13/18 07:29 Lymph % (Auto) Harvester Operator 11/11/18 19:14 [place] % (Auto) Harvester Operator 11/13/18 07:29 Eos % (Auto) Harvester Operator 11/11/18 19:14 Baso % (Auto) Harvester Operator 11/11/18 19:14 Lymph # Harvester Operator 11/11/18 19:14 [place] # Harvester Operator 11/11/18 19:14 Eos # Harvester Operator 11/11/18 19:14 Baso # Harvester Operator 11/11/18 19:14 Add Manual Diff Complete 11/13/18 07:29 Total Counted 100 11/13/18 07:29 Seg Neutrophils % Harvester Operator 11/11/18 19:14 Seg Neuts % (Manual) 72.0 % (40.0-70.0) H 11/13/18 07:29 10.0 % 11/13/18 07:29 9.0 % (13.4-35.0) L 11/13/18 07:29 Reactive Lymphs % (Man) 0 % 11/13/18 07:29 5.0 % (0.0-7.3) 11/13/18 07:29 0 % (0.0-4.3) 11/13/18 07:29 0 % (0.0-1.8) 11/13/18 07:29 4.0 % 11/13/18 07:29 0 % 11/13/18 07:29 0 % 11/13/18 07:29 0 % 11/13/18 07:29 Nucleated RBC % Not Reportable 11/13/18 07:29 Seg Neutrophils # Harvester Operator 11/11/18 19:14 Seg Neutrophils # Man 9.6 K/mm3 (1.8-7.7) H 11/13/18 07:29 Band Neutrophils # 1.3 K/mm3 11/13/18 07:29 1.2 K/mm3 (1.2-5.4) 11/13/18 07:29 Abs React Lymphs (Man) 0.0 K/mm3 11/13/18 07:29 0.7 K/mm3 (0.0-0.8) 11/13/18 07:29 0.0 K/mm3 (0.0-0.4) 11/13/18 07:29 0.0 K/mm3 (0.0-0.1) 11/13/18 07:29 0.5 K/mm3 11/13/18 07:29 0.0 K/mm3 11/13/18 07:29 0.0 K/mm3 11/13/18 07:29 Blast Cells # 0.0 K/mm3 11/13/18 07:29 WBC Morphology Not Reportable 11/13/18 07:29 Hypersegmented Neuts Not Reportable 11/13/18 07:29 Hyposegmented Neuts Not Reportable 11/13/18 07:29 Hypogranular Neuts Not Reportable 11/13/18 07:29 Not Reportable 11/13/18 07:29 Not Reportable 11/13/18 07:29 Not Reportable 11/13/18 07:29 1+ 11/13/18 07:29 Not Reportable 11/13/18 07:29 Not Reportable 11/13/18 07:29 Consistent w auto 11/13/18 07:29 Not Reportable 11/13/18 07:29 Plt Clumps, EDTA Not Reportable 11/13/18 07:29 Not Reportable 11/13/18 07:29 Not Reportable 11/13/18 07:29 Not Reportable 11/13/18 07:29 Plt Morphology Comment Not Reportable 11/13/18 07:29 RBC Morphology Not Reportable 11/13/18 07:29 Dimorphic RBCs Not Reportable 11/13/18 07:29 Not Reportable 11/13/18 07:29 Not Reportable 11/13/18 07:29 Not Reportable 11/13/18 07:29 Few 11/13/18 07:29 Not Reportable 11/13/18 07:29 Not Reportable 11/13/18 07:29 Not Reportable 11/13/18 07:29 Not Reportable 11/13/18 07:29 Not Reportable 11/13/18 07:29 Few 11/13/18 07:29 Not Reportable 11/13/18 07:29 Not Reportable 11/13/18 07:29 Not Reportable 11/13/18 07:29 Not Reportable 11/13/18 07:29 Not Reportable 11/13/18 07:29 Not Reportable 11/13/18 07:29 Not Reportable 11/13/18 07:29 Not Reportable 11/13/18 07:29 Not Reportable 11/13/18 07:29 Acanthocytes (Spur) Not Reportable 11/13/18 07:29 Rouleaux Not Reportable 11/13/18 07:29 Not Reportable 11/13/18 07:29 Not Reportable 11/13/18 07:29 Not Reportable 11/13/18 07:29 Not Reportable 11/13/18 07:29 Hem Pathologist Commnt No 11/13/18 07:29 Sodium 135 mmol/L (137-145) L 11/13/18 05:07 Potassium 6.5 mmol/L (3.6-5.0) H* D 11/13/18 05:07 Chloride 91.7 mmol/L (98-107) L 11/13/18 05:07 Carbon Dioxide 20 mmol/L (22-30) L 11/13/18 05:07 30 mmol/L 11/13/18 05:07 BUN 71 mg/dL (9-20) H 11/13/18 05:07 7.2 mg/dL (0.8-1.5) H 11/13/18 05:07 Estimated GFR 9 ml/min 11/13/18 05:07 10 % 11/13/18 05:07 Glucose 138 mg/dL (75-100) H 11/13/18 05:07 Lactic Acid 2.00 mmol/L (0.7-2.0) 11/11/18 17:45 Calcium 10.1 mg/dL (8.4-10.2) 11/13/18 05:07 Phosphorus 3.70 mg/dL (2.5-4.5) 11/11/18 23:15 0.80 mg/dL (0.1-1.2) 11/11/18 17:45 AST 35 units/L (5-40) 11/11/18 17:45 ALT 12 units/L (7-56) 11/11/18 17:45 88 units/L (35-129) 11/11/18 17:45 363 units/L (55-170) H 11/12/18 03:33 CK-MB (CK-2) 4.0 ng/mL (0.0-4.0) 11/12/18 03:33 CK-MB (CK-2) Rel Index 1.1 (0-4) 11/12/18 03:33 0.274 ng/mL (0.00-0.029) H* 11/12/18 03:33 8.0 g/dL (6.3-8.2) 11/11/18 17:45 3.1 g/dL (3.9-5) L 11/11/18 17:45 0.6 % 11/11/18 17:45 Triglycerides 380 mg/dL (2-149) H 11/11/18 17:45 Cholesterol 117 mg/dL (50-199) 11/11/18 17:45 8 mg/dL (50-130) L 11/11/18 17:45 8 mg/dL (40-59) L 11/11/18 17:45 14.62 % 11/11/18 17:45 Hepatitis A IgM Ab Non-reactive (NonReactive) 11/12/18 10:01 Hep Bs Antigen Non-reactive (Negative) 11/12/18 10:01 Hep B Core IgM Ab Non-reactive (NonReactive) 11/12/18 10:01 Non-reactive (NonReactive) 11/12/18 10:01 Active Medications - Current Medications Current Medications: Generic Name Dose Route Start Last Admin Trade Name Freq PRN Reason Stop Dose Admin Acetaminophen 650 mg 11/11/18 23:03 11/13/18 22:07 Tylenol [place] 650 mg Q4H PRN Administration Pain, Mild (1-3) Sodium Chloride 100 mls @ 999 mls/hr 11/12/18 09:38 Nacl 0.9% IV SISSY PRN Hypotension Sodium Chloride 100 mls @ 999 mls/hr 09/13/19 13:19 Nacl 0.9% IV SISSY PRN Hypotension Cefepime HCl 2 gm in 100 mls @ 200 mls/hr 11/13/18 18:00 11/13/18 17:41 Maxipime/Ns 2 Gm/100 Ml IV 200 mls/hr Q24H ISABELLA Administration Protocol Ondansetron HCl 4 mg 11/11/18 22:59 11/13/18 01:31 Zofran IV 4 mg Q4H PRN Administration Nausea And Vomiting Sodium Chloride 10 ml 11/12/18 10:00 11/14/18 10:28 Sodium Chloride Flush Syringe 10 Ml IV 10 ml BID ISABELLA Administration Sodium Chloride 10 ml 11/11/18 22:59 Sodium Chloride Flush Syringe 10 Ml IV PRN PRN LINE FLUSH Nutrition/Malnutrition Assess - Dietary Evaluation Nutrition/Malnutrition Findings: Nutrition Notes Start: 11/12/18 14:51 Freq: Status: Active Protocol: Document 11/13/18 12:35 DW (Rec: 11/13/18 13:17 DW [id number]) Co-Sign 11/13/18 12:35 LP Nutrition Notes Initial or Follow up Assessment Current Diagnosis CKD (stage V CKD),Hypertension Other Pertinent Diagnosis ESRD on HD, Hyperparathyroidism, Dysphagia , Pneu Current Diet NPO Labs/Tests K:6.5 Na:135 Pertinent Medications Reviewed Height 5 ft 6 in Weight 73.5 kg [place] Body Weight (kg) 64.54 BMI 26.1 Subjective/Other Information Pt had trouble communicating d /t s/p permicath removal. Pt was able to state that he does not have a good appetite and has not eaten well since he has been in the hospital. Per nurse, pt was feeding him breakfast but he did not eat much. Was unable to perform NFPE d/t pt strength at time of arrival no temporal wasting was present Burn Absent Trauma Absent GI Symptoms None Food Allergy No Minimum of two criteria No #1 Nutrition Diagnosis Inadequate energy intake Etiology lack of appetite As Evidenced by Signs and Symptoms Pt has not eaten since he has been in hospital Is patient on ventilator? No Is Patient Ambulatory and/or Out of Bed No REE-([facility]-confined to bed) [phone] Additional Notes PRO needs: 74-88g (1-1.2 g/kg) Fluid needs: 1-1.5 L/day Nutrition Intervention Change Diet Order: Advance when medically able Add Supplement/Snack (indicate name/kcal Nepro BID /protein ) Provides kCal: 850 Provides Protein (gm) 38 Goal #1 Meet atleast 75% of energy and PRO needs via PO and ONS Anticipated Discharge Needs: Renal Diet and ONS BID Follow-Up By: 11/16/18 Additional Comments FU PO and ONS tolerance
--- NOTE | 2018-11-14 12:17 | Progress Note ---
Assessment and Plan - Patient Problems (1) ESRD (end stage renal disease) Current Visit: Yes Status: Chronic Plan to address problem: Will dialyze on a TTS inpatient HD schedule. Dialyzed extra session yesterday for 2 hrs without any UF, for clearance and correction of his hyperkalemia. (2) Sepsis Current Visit: Yes Status: Acute Plan to address problem: Concerned that his permcath may be a source for sepsis, now with growth of staph aureus bactermia. s/p permcath removal and placement of temporary right femoral trialysis catheter. ID recommendations appreciated. Continues on vancomycin and cefepime. Pharmacy to dose vancomycin. Will monitor closely. (3) Pneumonia Current Visit: Yes Status: Acute Qualifiers: Pneumonia type: due to unspecified organism Laterality: unspecified laterality Lung location: unspecified part of lung Qualified Code(s): J18.9 - Pneumonia, unspecified organism Plan to address problem: Continues on cefepime per primary team. 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 Would recommend that we hold off on all blood pressure medications at present time. Important that we maintain adequate MAP >65mmHg (5) Secondary hyperparathyroidism (of renal origin) Current Visit: Yes Status: Acute Plan to address problem: Will monitor his Ca, Phos, and iPTH levels inpatient. Subjective Date of service: 11/14/18 Interval history: Seen at HD. Patient remains lethargic but does respond to verbal stimuli. He is not following commands. Blood pressures have been stable and he has not required any pressor support. Continue on Vancomycin and cefepime. Cultures indicating staph aureus bacteremia, from infected permcath. ID evaluation noted. Objective - Vital Signs Vital signs: Vital Signs - 12hr 11/14/18 11/14/18 11/14/18 00:31 01:00 01:30 Temperature Pulse Rate 99 H 105 H 117 H Pulse Rate [ From Monitor] Respiratory 28 H 31 H 29 H Rate Blood Pressure 109/58 114/66 117/63 O2 Sat by Pulse 94 95 94 Oximetry 11/14/18 11/14/18 11/14/18 02:00 02:30 03:00 Temperature Pulse Rate 110 H 96 H 111 H Pulse Rate [ From Monitor] Respiratory 29 H 23 29 H Rate Blood Pressure 109/67 119/63 104/67 O2 Sat by Pulse 95 94 94 Oximetry 11/14/18 11/14/18 11/14/18 03:30 03:57 04:00 Temperature 98.3 F Pulse Rate 101 H 106 H Pulse Rate [ 81 From Monitor] Respiratory 28 H 32 H Rate Blood Pressure 123/56 114/69 O2 Sat by Pulse 94 96 Oximetry 11/14/18 11/14/18 11/14/18 04:30 05:00 05:30 Temperature Pulse Rate 98 H 104 H 107 H Pulse Rate [ From Monitor] Respiratory 32 H 28 H 29 H Rate Blood Pressure 124/68 116/61 125/62 O2 Sat by Pulse 94 94 93 Oximetry 11/14/18 11/14/18 11/14/18 06:00 06:30 07:00 Temperature 98.7 F Pulse Rate 103 H 100 H 109 H Pulse Rate [ From Monitor] Respiratory 26 H 29 H 24 Rate Blood Pressure 111/67 119/69 125/65 O2 Sat by Pulse 94 93 94 Oximetry 11/14/18 11/14/18 11/14/18 07:30 08:00 08:30 Temperature Pulse Rate 108 H 99 H 92 H Pulse Rate [ 112 H From Monitor] Respiratory 30 H 35 H 30 H Rate Blood Pressure 108/72 118/70 112/60 O2 Sat by Pulse 95 94 95 Oximetry 11/14/18 11/14/18 11/14/18 09:00 09:30 09:44 Temperature Pulse Rate 102 H 90 Pulse Rate [ From Monitor] Respiratory 25 H 30 H Rate Blood Pressure 113/64 126/68 O2 Sat by Pulse 95 94 95 Oximetry 11/14/18 11/14/18 10:00 10:30 Temperature Pulse Rate 101 H 92 H Pulse Rate [ From Monitor] Respiratory 33 H 26 H Rate Blood Pressure 107/63 121/67 O2 Sat by Pulse 93 94 Oximetry - General Appearance General appearance: chronically ill, frail EENT: ATNC Neck: no JVD Respiratory: Present: Clear to Ascultation Cardiology: regular, S1S2 Gastrointestinal: normal, normoactive bowel sounds Integumentary: warm and dry Neurologic: other (lethargic, not following commands, awakens to verbal stimuli ) Musculoskeletal: other (-edema ) - Lab 11/13/18 07:29 11/13/18 05:07 Most recent lab results Calcium 10.1 mg/dL (8.4-10.2) 11/13/18 05:07 Phosphorus 3.70 mg/dL (2.5-4.5) 11/11/18 23:15 - Allied health notes Allied health notes reviewed: nursing Medications & Allergies - Medications Allergies/Adverse Reactions: Allergies No Known Allergies Allergy (Verified 08/27/18 16:19) Home Medications: Home Medications Medication Instructions Recorded Confirmed Last Taken Type Ferrous Sulfate [Iron Supplement 150 mg PO BID 07/31/13 08/27/18 07/14/18 History 325 Mg tab] Cocoa-3S/Dha/Epa/Fish Oil/D3 [Fish 1 each PO DAILY 07/31/13 09/02/18 09/02/18 05:20 History Ohv-Mdweh-9-Vit D Softgel] amLODIPine [Norvasc] 10 mg PO DAILY 07/31/13 09/02/18 09/02/18 05:20 History cloNIDine [Catapres] 0.2 mg PO BID 07/31/13 09/02/18 09/02/18 05:20 History Carvedilol [Coreg] 6.25 mg PO BID 05/22/18 09/02/18 09/02/18 05:20 History Ergocalciferol (Vitamin D2) 2,000 unit PO DAILY 05/22/18 09/02/18 09/02/18 05:20 History [Vitamin D2] HYDROcodone/APAP 5-325 [[place] 1 each PO Q6HR PRN #25 tablet 09/02/18 Unknown Rx 5-325 mg TAB] Active Medications: Generic Name Dose Route Start Last Admin Trade Name Macario PRN Reason Stop Dose Admin Acetaminophen 650 mg 11/11/18 23:03 11/13/18 22:07 Tylenol [place] 650 mg Q4H PRN Administration Pain, Mild (1-3) Sodium Chloride 100 mls @ 999 mls/hr 11/12/18 09:38 Nacl 0.9% IV SISSY PRN Hypotension Sodium Chloride 100 mls @ 999 mls/hr 11/13/18 13:19 Nacl 0.9% IV SISSY PRN Hypotension Cefepime HCl 2 gm in 100 mls @ 200 mls/hr 11/13/18 18:00 11/13/18 17:41 Maxipime/Ns 2 Gm/100 Ml IV 200 mls/hr Q24H ISABELLA Administration Protocol Ondansetron HCl 4 mg 11/11/18 22:59 11/13/18 01:31 Zofran IV 4 mg Q4H PRN Administration Nausea And Vomiting Sodium Chloride 10 ml 11/12/18 10:00 11/14/18 10:28 Sodium Chloride Flush Syringe 10 Ml IV 10 ml BID ISABELLA Administration Sodium Chloride 10 ml 11/11/18 22:59 Sodium Chloride Flush Syringe 10 Ml IV PRN PRN LINE FLUSH
[2018-11-14] MEDS: CEFEPIME/NS 2 GM/100 ML 2 GM/100 ML BAG IV SCH (18:38)
[2018-11-14] MEDS ORDERED: SODIUM CHLORIDE*PRIMING MACHINE ONLY FOR DIALYSIS MC ONE (23:26)
[2018-11-15 04:36] LABS: Hematocrit 30.1 % (35.5-45.6); Hemoglobin 10.1 gm/dl (11.8-15.2); Mean Corpuscular HGB Conc 34 % (32-34); Mean Corpuscular Volume 85 fl (84-94); Red Blood Count 3.54 M/mm3 (3.65-5.03); Red Cell Distribution Width 15.3 % (13.2-15.2)
[2018-11-15 04:39] LABS: Platelet Count 63 K/mm3 (140-440)
[2018-11-15 04:47] LABS: Calcium 9.7 mg/dL (8.4-10.2)
[2018-11-15 06:06] LABS: Band Neutrophils # (Manual) 0.2 K/mm3; Basophils % (Manual) 0 % (0.0-1.8); Total Cells Counted 100
[2018-11-15 06:08] LABS: Platelet Estimate Consistent w Auto; Target Cells Few
--- NOTE | 2018-11-15 07:53 | Progress Note ---
Assessment and Plan Assessment and plan: --Hyperkalemia; Kayexalate hemodialysis per schedule,Monitor electrolytes --Infected permacath; empiric antibiotics, s/p vascath placement --Sepsis secondary to Staph aureus; infected permacath Continue vancomycin and cefepime, ID following --ESRD on dialysdis; nephrology following Avoid nephrotoxins, Ht per schedule --Community-acquired pneumonia: Empiric antibiotics, cultures, Supportive care --History of Dysphagia; speech and swallow evaluated the patient Cleared for oral diet, no symptoms of dysphagia --Hypertension; moderate control Closely monitor blood pressures and adjust as needed --Thrombocytopenia; no evidence of bleeding Closely monitor platelets, consult hematology if needed --DVT prophylaxis; heparin renal dose --Full code; Monitor closely and adjust management as needed Plan of care is reviewed with the patient and his nurse I also discussed patient's condition, treatment plan extensively with his daughter Ms Yuliya Napier, and I addressed All her questions and concerns History Interval history: Patient seen and examined medical records reviewed Patient is confused intermittently Probably secondary to sepsis Not in acute distress Vital signs reviewed Hospitalist Physical - Constitutional Vitals: Temp Pulse Resp BP Pulse Ox 98.5 F 90 20 105/43 97 11/15/18 02:13 11/15/18 07:24 11/15/18 07:24 11/15/18 02:13 11/15/18 02:13 General appearance: Present: no acute distress, well-nourished - EENT Eyes: Present: PERRL, EOM intact - Neck Neck: Present: supple, normal ROM - Respiratory Respiratory effort: normal Respiratory: bilateral: diminished, negative: rales, rhonchi, wheezing - Cardiovascular Rhythm: regular Heart Sounds: Present: S1 & S2 - Extremities Extremities: no ischemia, No edema - Abdominal General gastrointestinal: soft, non-tender, non-distended, normal bowel sounds - Integumentary Integumentary: Present: clear, warm - Psychiatric Psychiatric: appropriate mood/affect, cooperative - Neurologic Neurologic: CNII-XII intact, moves all extremities Results - Labs CBC & Chem 7: 11/15/18 03:46 11/15/18 03:46 Labs: Laboratory Last Values WBC 19.2 K/mm3 (4.5-11.0) H 11/15/18 03:46 RBC 3.54 M/mm3 (3.65-5.03) L 11/15/18 03:46 Hgb 10.1 gm/dl (11.8-15.2) L 11/15/18 03:46 Hct 30.1 % (35.5-45.6) L 11/15/18 03:46 MCV 85 fl (84-94) 11/15/18 03:46 MCH 29 pg (28-32) 11/15/18 03:46 MCHC 34 % (32-34) 11/15/18 03:46 RDW 15.3 % (13.2-15.2) H 11/15/18 03:46 Plt Count 63 K/mm3 (140-440) L 11/15/18 03:46 Lymph % (Auto) [employer] Helper 11/11/18 19:14 [place] % (Auto) [employer] Helper 11/13/18 07:29 Eos % (Auto) [employer] Helper 11/11/18 19:14 Baso % (Auto) [employer] Helper 11/11/18 19:14 Lymph # [employer] Helper 11/11/18 19:14 [place] # [employer] Helper 11/11/18 19:14 Eos # [employer] Helper 11/11/18 19:14 Baso # [employer] Helper 11/11/18 19:14 Add Manual Diff Complete 11/15/18 03:46 Total Counted 100 11/15/18 03:46 Seg Neutrophils % [employer] Helper 11/11/18 19:14 Seg Neuts % (Manual) 92.0 % (40.0-70.0) H 11/15/18 03:46 1.0 % 11/15/18 03:46 4.0 % (13.4-35.0) L 11/15/18 03:46 Reactive Lymphs % (Man) 0 % 11/15/18 03:46 2.0 % (0.0-7.3) 11/15/18 03:46 1.0 % (0.0-4.3) 11/15/18 03:46 0 % (0.0-1.8) 11/15/18 03:46 0 % 11/15/18 03:46 0 % 11/15/18 03:46 0 % 11/15/18 03:46 0 % 11/15/18 03:46 Nucleated RBC % Not Reportable 11/15/18 03:46 Seg Neutrophils # [employer] Helper 11/11/18 19:14 Seg Neutrophils # Man 17.7 K/mm3 (1.8-7.7) H 11/15/18 03:46 Band Neutrophils # 0.2 K/mm3 11/15/18 03:46 0.8 K/mm3 (1.2-5.4) L 11/15/18 03:46 Abs React Lymphs (Man) 0.0 K/mm3 11/15/18 03:46 0.4 K/mm3 (0.0-0.8) 11/15/18 03:46 0.2 K/mm3 (0.0-0.4) 11/15/18 03:46 0.0 K/mm3 (0.0-0.1) 11/15/18 03:46 0.0 K/mm3 11/15/18 03:46 0.0 K/mm3 11/15/18 03:46 0.0 K/mm3 11/15/18 03:46 Blast Cells # 0.0 K/mm3 11/15/18 03:46 WBC Morphology Not Reportable 11/15/18 03:46 Hypersegmented Neuts Not Reportable 11/15/18 03:46 Hyposegmented Neuts Not Reportable 11/15/18 03:46 Hypogranular Neuts Not Reportable 11/15/18 03:46 Not Reportable 11/15/18 03:46 Not Reportable 11/15/18 03:46 Not Reportable 11/15/18 03:46 Not Reportable 11/15/18 03:46 Not Reportable 11/15/18 03:46 Not Reportable 11/15/18 03:46 Consistent w auto 11/15/18 03:46 Not Reportable 11/15/18 03:46 Plt Clumps, EDTA Not Reportable 11/15/18 03:46 Not Reportable 11/15/18 03:46 Not Reportable 11/15/18 03:46 Not Reportable 11/15/18 03:46 Plt Morphology Comment Not Reportable 11/15/18 03:46 RBC Morphology Not Reportable 11/15/18 03:46 Dimorphic RBCs Not Reportable 11/15/18 03:46 Few 11/15/18 03:46 Not Reportable 11/15/18 03:46 Not Reportable 11/15/18 03:46 Not Reportable 11/15/18 03:46 Not Reportable 11/15/18 03:46 Not Reportable 11/15/18 03:46 Not Reportable 11/15/18 03:46 Not Reportable 11/15/18 03:46 Not Reportable 11/15/18 03:46 Few 11/15/18 03:46 Not Reportable 11/15/18 03:46 Not Reportable 11/15/18 03:46 Not Reportable 11/15/18 03:46 Not Reportable 11/15/18 03:46 Not Reportable 11/15/18 03:46 Not Reportable 11/15/18 03:46 Not Reportable 11/15/18 03:46 Not Reportable 11/15/18 03:46 Not Reportable 11/15/18 03:46 Acanthocytes (Spur) Not Reportable 11/15/18 03:46 Rouleaux Not Reportable 11/15/18 03:46 Not Reportable 11/15/18 03:46 Not Reportable 11/15/18 03:46 Not Reportable 11/15/18 03:46 Not Reportable 11/15/18 03:46 Hem Pathologist Commnt No 11/15/18 03:46 Sodium 141 mmol/L (137-145) 11/15/18 03:46 Potassium 5.3 mmol/L (3.6-5.0) H 11/15/18 03:46 Chloride 96.7 mmol/L (98-107) L 11/15/18 03:46 Carbon Dioxide 25 mmol/L (22-30) 11/15/18 03:46 25 mmol/L 11/15/18 03:46 BUN 80 mg/dL (9-20) H 11/15/18 03:46 5.4 mg/dL (0.8-1.5) H 11/15/18 03:46 Estimated GFR 13 ml/min 11/15/18 03:46 15 % 11/15/18 03:46 Glucose 140 mg/dL (75-100) H 11/15/18 03:46 Lactic Acid 2.00 mmol/L (0.7-2.0) 11/11/18 17:45 Calcium 9.7 mg/dL (8.4-10.2) 11/15/18 03:46 Phosphorus 3.70 mg/dL (2.5-4.5) 11/11/18 23:15 0.80 mg/dL (0.1-1.2) 11/11/18 17:45 AST 35 units/L (5-40) 11/11/18 17:45 ALT 12 units/L (7-56) 11/11/18 17:45 88 units/L (35-129) 11/11/18 17:45 363 units/L (55-170) H 11/12/18 03:33 CK-MB (CK-2) 4.0 ng/mL (0.0-4.0) 11/12/18 03:33 CK-MB (CK-2) Rel Index 1.1 (0-4) 11/12/18 03:33 0.274 ng/mL (0.00-0.029) H* 11/12/18 03:33 8.0 g/dL (6.3-8.2) 11/11/18 17:45 3.1 g/dL (3.9-5) L 11/11/18 17:45 0.6 % 11/11/18 17:45 Triglycerides 380 mg/dL (2-149) H 11/11/18 17:45 Cholesterol 117 mg/dL (50-199) 11/11/18 17:45 8 mg/dL (50-130) L 11/11/18 17:45 8 mg/dL (40-59) L 11/11/18 17:45 14.62 % 11/11/18 17:45 Random Vancomycin 25.3 ug/mL (0-40.0) 11/15/18 03:46 Hepatitis A IgM Ab Non-reactive (NonReactive) 11/12/18 10:01 Hep Bs Antigen Non-reactive (Negative) 11/12/18 10:01 Hep B Core IgM Ab Non-reactive (NonReactive) 11/12/18 10:01 Non-reactive (NonReactive) 11/12/18 10:01 Active Medications - Current Medications Current Medications: Generic Name Dose Route Start Last Admin Trade Name Freq PRN Reason Stop Dose Admin Acetaminophen 650 mg 11/11/18 23:03 11/13/18 22:07 Tylenol [place] 650 mg Q4H PRN Administration Pain, Mild (1-3) Sodium Chloride 100 mls @ 999 mls/hr 11/12/18 09:38 Nacl 0.9% IV SISSY PRN Hypotension Sodium Chloride 100 mls @ 999 mls/hr 11/13/18 13:19 Nacl 0.9% IV SISSY PRN Hypotension Cefepime HCl 2 gm in 100 mls @ 200 mls/hr 11/13/18 18:00 11/14/18 18:38 Maxipime/Ns 2 Gm/100 Ml IV 200 mls/hr Q24H ISABELLA Administration Protocol Ondansetron HCl 4 mg 11/11/18 22:59 11/13/18 01:31 Zofran IV 4 mg Q4H PRN Administration Nausea And Vomiting Sodium Chloride 10 ml 11/12/18 10:00 11/14/18 21:43 Sodium Chloride Flush Syringe 10 Ml IV 10 ml BID ISABELLA Administration Sodium Chloride 10 ml 11/11/18 22:59 Sodium Chloride Flush Syringe 10 Ml IV PRN PRN LINE FLUSH Nutrition/Malnutrition Assess - Dietary Evaluation Nutrition/Malnutrition Findings: Nutrition Notes Start: 11/12/18 14:51 Freq: Status: Active Protocol: Document 11/13/18 12:35 DW (Rec: 11/13/18 13:17 DW [id number]) Co-Sign 11/13/18 12:35 LP Nutrition Notes Initial or Follow up Assessment Current Diagnosis CKD (stage V CKD),Hypertension Other Pertinent Diagnosis ESRD on HD, Hyperparathyroidism, Dysphagia , Pneu Current Diet NPO Labs/Tests K:6.5 Na:135 Pertinent Medications Reviewed Height 5 ft 6 in Weight 73.5 kg [place] Body Weight (kg) 64.54 BMI 26.1 Subjective/Other Information Pt had trouble communicating d /t s/p permicath removal. Pt was able to state that he does not have a good appetite and has not eaten well since he has been in the hospital. Per nurse, pt was feeding him breakfast but he did not eat much. Was unable to perform NFPE d/t pt strength at time of arrival no temporal wasting was present Burn Absent Trauma Absent GI Symptoms None Food Allergy No Minimum of two criteria No #1 Nutrition Diagnosis Inadequate energy intake Etiology lack of appetite As Evidenced by Signs and Symptoms Pt has not eaten since he has been in hospital Is patient on ventilator? No Is Patient Ambulatory and/or Out of Bed No REE-([facility]-confined to bed) [phone] Additional Notes PRO needs: 74-88g (1-1.2 g/kg) Fluid needs: 1-1.5 L/day Nutrition Intervention Change Diet Order: Advance when medically able Add Supplement/Snack (indicate name/kcal Nepro BID /protein ) Provides kCal: 850 Provides Protein (gm) 38 Goal #1 Meet atleast 75% of energy and PRO needs via PO and ONS Anticipated Discharge Needs: Renal Diet and ONS BID Follow-Up By: 11/16/18 Additional Comments FU PO and ONS tolerance
[2018-11-15] MEDS ORDERED: SODIUM POLYSTYRENE 15 GM/60 ML ORAL LIQD PO ONE (07:54)
--- NOTE | 2018-11-15 08:43 | XRay Report ---
CHEST 1 VIEW INDICATION: f/u pneumonia. COMPARISON: 'S 11/11/2018 FINDINGS: Support devices: Right IJ catheter has been removed. Heart: Within normal limits. Lungs/Pleura: Slightly worsened patchy multifocal airspace disease. Additional findings: None. IMPRESSION: 1. Slightly worsened exam. Signer Name: Robson Preston MD Signed: 11/15/2018 8:39 AM Workstation Name: [id number]
--- NOTE | 2018-11-15 11:50 | Progress Note ---
Assessment and Plan - Patient Problems (1) ESRD (end stage renal disease) Current Visit: Yes Status: Chronic Plan to address problem: Will dialyze on a TTS inpatient HD schedule. (2) Sepsis Current Visit: Yes Status: Acute Plan to address problem: Concerned that his permcath may be a source for sepsis, now with growth of staph aureus bactermia. s/p permcath removal and placement of temporary right femoral trialysis catheter. ID recommendations appreciated. Continues on vancomycin and cefepime. Pharmacy to dose vancomycin. Will monitor closely. Will order repeat set of blood cultures x2. (3) Pneumonia Current Visit: Yes Status: Acute Qualifiers: Pneumonia type: due to unspecified organism Laterality: unspecified l aterality Lung location: unspecified part of lung Qualified Code(s): J18.9 - Pneumonia, unspecified organism Plan to address problem: Continues on cefepime per primary team. 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 Would recommend that we hold off on all blood pressure medications at present time. Important that we maintain adequate MAP >65mmHg (5) Secondary hyperparathyroidism (of renal origin) Current Visit: Yes Status: Acute Plan to address problem: Will monitor his Ca, Phos, and iPTH levels inpatient. Subjective Date of service: 11/15/18 Interval history: Patient transferred out of the ICU. Will order repeat set of blood cultures. He is a bit more awake and did open his eyes upon verbal commands. Objective - Vital Signs Vital signs: Vital Signs - 12hr 11/15/18 11/15/18 11/15/18 02:13 07:24 07:41 Temperature 98.5 F 98.3 F Pulse Rate 94 H 88 Pulse Rate [ 90 From Monitor] Respiratory 22 20 18 Rate Blood Pressure 105/43 99/59 O2 Sat by Pulse 97 96 Oximetry 11/15/18 10:20 Temperature Pulse Rate Pulse Rate [ From Monitor] Respiratory Rate Blood Pressure O2 Sat by Pulse 94 Oximetry - General Appearance General appearance: appears stated age, chronically ill, frail EENT: ATNC, PERRL Neck: no JVD, no thyromegaly Respiratory: Present: Clear to Ascultation Cardiology: regular, S1S2 Gastrointestinal: normal, normoactive bowel sounds Integumentary: warm and dry Neurologic: other (remains lethargic) Musculoskeletal: other (-edema) - Lab 11/15/18 03:46 11/15/18 03:46 Most recent lab results Calcium 9.7 mg/dL (8.4-10.2) 11/15/18 03:46 Phosphorus 3.70 mg/dL (2.5-4.5) 11/11/18 23:15 - Allied health notes Allied health notes reviewed: nursing Medications & Allergies - Medications Allergies/Adverse Reactions: Allergies No Known Allergies Allergy (Verified 08/27/18 16:19) Home Medications: Home Medications Medication Instructions Recorded Confirmed Last Taken Type Ferrous Sulfate [Iron Supplement 150 mg PO BID 07/31/13 11/14/18 07/14/18 History 325 Mg tab] [place]-3S/Dha/Epa/Fish Oil/D3 [Fish 1 each PO DAILY 07/31/13 11/14/18 09/02/18 05:20 History [place]-1-Vit D Softgel] amLODIPine [Norvasc] 10 mg PO DAILY 07/31/13 11/14/18 09/02/18 05:20 History cloNIDine [Catapres] 0.2 mg PO BID 07/31/13 11/14/18 09/02/18 05:20 History Carvedilol [Coreg] 6.25 mg PO BID 05/22/18 11/14/18 09/02/18 05:20 History Ergocalciferol (Vitamin D2) 2,000 unit PO DAILY 05/22/18 11/14/18 09/02/18 05:20 History [Vitamin D2] HYDROcodone/APAP 5-325 [[place] 1 each PO Q6HR PRN #25 tablet 09/02/18 11/14/18 Unknown Rx 5-325 mg TAB] Active Medications: Generic Name Dose Route Start Last Admin Trade Name Freq PRN Reason Stop Dose Admin Acetaminophen 650 mg 11/11/18 23:03 11/13/18 22:07 Tylenol [place] 650 mg Q4H PRN Administration Pain, Mild (1-3) Sodium Chloride 100 mls @ 999 mls/hr 11/12/18 09:38 Nacl 0.9% IV SISSY PRN Hypotension Sodium Chloride 100 mls @ 999 mls/hr 11/13/18 13:19 Nacl 0.9% IV SISSY PRN Hypotension Cefepime HCl 2 gm in 100 mls @ 200 mls/hr 11/13/18 18:00 11/14/18 18:38 Maxipime/Ns 2 Gm/100 Ml IV 200 mls/hr Q24H ISABELLA Administration Protocol Ondansetron HCl 4 mg 11/11/18 22:59 11/13/18 01:31 Zofran IV 4 mg Q4H PRN Administration Nausea And Vomiting Sodium Chloride 10 ml 11/12/18 10:00 11/15/18 09:14 Sodium Chloride Flush Syringe 10 Ml IV 10 ml BID ISABELLA Administration Sodium Chloride 10 ml 11/11/18 22:59 Sodium Chloride Flush Syringe 10 Ml IV PRN PRN LINE FLUSH
--- NOTE | 2018-11-15 13:32 | Progress Note ---
Assessment and Plan Cultures: 11/12/2018 wound culture: MSSA 11/12/2018 vas cath culture: MSSA 11/12/2018 blood culture: MSSA Assessment: 73 yo M PMHx HTN, ESRD on HD, hyperparathyroidism, OA admitted with renal failur e and a vascular catheter infection. 1. MSSA bacteremia secondary to Vascular catheter infection: catheter removed already. Needs repeat blood cultures to ensure clearance. 2. Pneumonia - vs fluid overload. 3. ESRD on HD - renally dose antibiotics 4. HTN 5. Hyperparathyroidism. Recs: Discontinued cefepime and vancomycin IV cefazolin started renally adjusted Follow-up repeat blood cultures ordered by nephrology The blood cultures need to be negative for 48 hours before a new HD cath placed Transthoracic echocardiogram ordered to eval heart valves Belinda Braun MD, FACP [facility] C: [phone] O: [phone] F: [phone] Subjective Date of service: 11/15/18 Interval history: No fever. Denies any new complaints. Objective - Exam Narrative Exam: Physical Exam: Constitutional: Alert, cooperative. No acute distress Head, Ears, Nose: Normocephalic, atraumatic. External ears, nose normal Eyes: Conjunctivae/corneas clear. No icterus. No ptosis. Neck: Supple, no meningeal signs Cardiovascular: S1, S2 normal. Respiratory: Good air entry, clear to auscultation bilaterally GI: Soft, non-tender; bowel sounds normal. No peritoneal signs Musculoskeletal: No pedal edema, no cyanosis. Groin cath +. R subclavian dressing + Skin: No rash or abscess Hem/Lymphatic: No palpable cervical or supraclavicular nodes. No lymphangitis Psych: Mood ok. Affect normal Neurological: Awake, alert, oriented. No gross abnormality - Constitutional Vitals: Vital Signs Temp Pulse Resp BP Pulse Ox 98.3 F 88 18 99/59 94 11/15/18 07:41 11/15/18 07:41 11/15/18 07:41 11/15/18 07:41 11/15/18 10:20 Temperature -Last 24 Hours Temperature 98.3 F Temperature 98.5 F Temperature 98.3 F Temperature 99.8 F Temperature 98.8 F - Labs CBC & Chem 7: 11/15/18 03:46 11/15/18 03:46 Labs: Abnormal lab results 11/15/18 11/15/18 Range/Units 03:46 03:46 WBC 19.2 H (4.5-11.0) K/mm3 RBC 3.54 L (3.65-5.03) M/mm3 Hgb 10.1 L (11.8-15.2) gm/dl Hct 30.1 L (35.5-45.6) % RDW 15.3 H (13.2-15.2) % Plt Count 63 L (140-440) K/mm3 Seg Neuts % (Manual) 92.0 H (40.0-70.0) % Lymphocytes % (Manual) 4.0 L (13.4-35.0) % Seg Neutrophils # Man 17.7 H (1.8-7.7) K/mm3 Lymphocytes # (Manual) 0.8 L (1.2-5.4) K/mm3 Potassium 5.3 H (3.6-5.0) mmol/L Chloride 96.7 L (98-107) mmol/L BUN 80 H (9-20) mg/dL Creatinine 5.4 H (0.8-1.5) mg/dL Glucose 140 H (75-100) mg/dL
[2018-11-15] MEDS ORDERED: ceFAZolin/NS 1 GM/50 ML 1 GM/50 ML BAG IV SCH (18:00)
[2018-11-15] MEDS: ACETAMINOPHEN 650 MG RECT SUPP PR PRN (22:47)
[2018-11-16] MEDS: ACETAMINOPHEN 650 MG RECT SUPP PR PRN (08:10)
--- NOTE | 2018-11-16 09:27 | Progress Note ---
Assessment and Plan - Patient Problems (1) Sepsis due to infected central venous catheter Current Visit: Yes Status: Acute Plan to address problem: Continue antibiotics. Dialysis Catheter has been removed. Follow-up cultures (2) End stage renal disease Current Visit: Yes Status: Acute Plan to address problem: Hemodialysis on a Friday, and Friday schedule. Increase time back to 3 and 1/2 hrs (3) Altered mental status Current Visit: Yes Status: Acute Plan to address problem: We'll get a CT scan of the head. Concerned about septic emboli to the brain. If negative may need an MRI. Consider neurology input (4) Hyperkalemia Current Visit: Yes Status: Acute Plan to address problem: Potassium improved with dialysis. Follow-up 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 chronic kidney disease or end stage renal disease Current Visit: Yes Status: Chronic Plan to address problem: Follow-up blood pressure on current medications (6) Anemia in CKD (chronic kidney disease) Current Visit: No Status: Acute Qualifiers: Chronic kidney disease stage: stage 5, not on chronic dialysis Qualified Code(s): N18.5 - Chronic kidney disease, stage 5; D63.1 - Anemia in chronic kidney disease Plan to address problem: Give erythropoietin on dialysis Subjective Date of service: 11/16/18 Principal diagnosis: end-stage renal disease with line sepsis Interval history: Patient seen lying in bed. He is lethargic. Responds to tactile stimuli but only making incomprehensible sounds. is at bedside Objective - Exam Narrative Exam: Elderly -Tajik male lying in bed in no acute distress HEENT: NCAT, pink oral mucous membrane Neck: Supple, no venous distention CVS: S1S2 RRR with no murmur, rub or gallop Chest: Clear to auscultation Abdomen: Protuberant, soft, nontender, no organomegaly, bowel sounds are present Extremities: No edema, no clubbing Skin no rash Neuro: Lethargic, opens eyes spontaneously, making incomprehensible sounds, not following commands - Vital Signs Vital signs: Vital Signs - 12hr 11/16/18 11/16/18 11/16/18 02:11 07:31 08:23 Temperature 98.6 F 98.9 F Pulse Rate 88 78 Respiratory 20 20 Rate Blood Pressure 107/57 112/49 O2 Sat by Pulse 95 95 96 Oximetry - Lab 11/15/18 03:46 11/15/18 03:46 Most recent lab results Calcium 9.7 mg/dL (8.4-10.2) 11/15/18 03:46 Phosphorus 3.70 mg/dL (2.5-4.5) 11/11/18 23:15 Medications & Allergies - Medications Allergies/Adverse Reactions: Allergies No Known Allergies Allergy (Verified 08/27/18 16:19) Home Medications: Home Medications Medication Instructions Recorded Confirmed Last Taken Type Ferrous Sulfate [Iron Supplement 150 mg PO BID 07/31/13 11/14/18 07/14/18 History 325 Mg tab] [place]-3S/Dha/Epa/Fish Oil/D3 [Fish 1 each PO DAILY 07/31/13 11/14/18 09/02/18 05:20 History Btf-Yzbbg-0-Vit D Softgel] amLODIPine [Norvasc] 10 mg PO DAILY 07/31/13 11/14/18 09/02/18 05:20 History cloNIDine [Catapres] 0.2 mg PO BID 07/31/13 11/14/18 09/02/18 05:20 History Carvedilol [Coreg] 6.25 mg PO BID 05/22/18 11/14/18 09/02/18 05:20 History Ergocalciferol (Vitamin D2) 2,000 unit PO DAILY 05/22/18 11/14/18 09/02/18 05:20 History [Vitamin D2] HYDROcodone/APAP 5-325 [Mcdonough 1 each PO Q6HR PRN #25 tablet 09/02/18 11/14/18 Unknown Rx 5-325 mg TAB] Active Medications: Generic Name Dose Route Start Last Admin Trade Name Freq PRN Reason Stop Dose Admin Acetaminophen 650 mg 11/11/18 23:03 11/16/18 08:10 Tylenol [place] 650 mg Q4H PRN Administration Pain, Mild (1-3) Sodium Chloride 100 mls @ 999 mls/hr 11/12/18 09:38 Nacl 0.9% IV SISSY PRN Hypotension Sodium Chloride 100 mls @ 999 mls/hr 11/13/18 13:19 Nacl 0.9% IV SISSY PRN Hypotension Cefazolin Sodium 1 gm in 50 mls @ 100 mls/hr 11/15/18 18:00 11/15/18 18:01 Ancef/Ns 1 Gm/50 Ml IV 100 mls/hr QPM ISABELLA Administration Protocol Ondansetron HCl 4 mg 11/11/18 22:59 11/13/18 01:31 Zofran IV 4 mg Q4H PRN Administration Nausea And Vomiting Sodium Chloride 10 ml 11/12/18 10:00 11/15/18 21:38 Sodium Chloride Flush Syringe 10 Ml IV 10 ml BID ISABELLA Administration Sodium Chloride 10 ml 11/11/18 22:59 Sodium Chloride Flush Syringe 10 Ml IV PRN PRN LINE FLUSH
--- NOTE | 2018-11-16 10:17 | Progress Note ---
Assessment and Plan Assessment and plan: 73-year-old -[place] male patient with significant past medical history of end-stage renal disease on hemodialysis osteoarthritis was admitted through emergency room with worsening shortness of breath, fluid overload, Patient was evaluated noted to have infected right IJ permacath with purulent drainage., Subsequently permacath removed and and patient received vascular And hemodialysis per schedule, Wound and blood cultures are consistent with staph aureus ID evaluated the patient placed on appropriate IV antibiotics Patient had intermittent confusion CT head today negative for acute abnor malities --Metabolic encephalopathy; multifactorial Probably secondary to sepsis, end-stage renal disease and uremia CT head negative, closely monitor --Infected permacath; empiric antibiotics, s/p vascath placement --Sepsis secondary to Staph aureus; infected permacath Continue vancomycin and cefepime, ID added Flagyl . Check CT abdomen and pelvis, CT chest if needed --ESRD on dialysdis; nephrology following Avoid nephrotoxins, Ht per schedule --Community-acquired pneumonia: Empiric antibiotics, f.u cultures --History of Dysphagia; speech and swallow evaluated the patient Cleared for oral diet, no symptoms of dysphagia --Hypertension; moderate control Closely monitor blood pressures and adjust as needed --Thrombocytopenia; no evidence of bleeding Closely monitor platelets, consult hematology if needed --DVT prophylaxis; heparin renal dose --Full code; Monitor closely and adjust management as needed Plan of care is reviewed with the patient and his nurse I also discussed patient's condition, treatment plan extensively with his daughter Ms Yuliya Napier, and I addressed All her questions and concerns Disposition; CT abdomen and pelvis and CT chest tomorrow if no improvement Follow clinically and discharge the patient when medically stable History Interval history: Patient seen and examined medical records reviewed The patient is confused minimally communicative today Alert and awake not in acute distress Vital signs noted Hospitalist Physical - Constitutional Vitals: Temp Pulse Resp BP Pulse Ox 98.9 F 78 20 112/49 96 11/16/18 07:31 11/16/18 07:31 11/16/18 07:31 11/16/18 07:31 11/16/18 08:23 General appearance: Present: no acute distress, well-nourished - EENT Eyes: Present: PERRL, EOM intact - Neck Neck: Present: supple, normal ROM - Respiratory Respiratory effort: normal Respiratory: bilateral: diminished, negative: rales, rhonchi, wheezing - Cardiovascular Rhythm: regular Heart Sounds: Present: S1 & S2 - Extremities Extremities: no ischemia, No edema - Abdominal General gastrointestinal: soft, non-tender, non-distended, normal bowel sounds - Integumentary Integumentary: Present: clear, warm - Psychiatric Psychiatric: appropriate mood/affect, cooperative - Neurologic Neurologic: CNII-XII intact, moves all extremities Results - Labs CBC & Chem 7: 11/15/18 03:46 11/15/18 03:46 Labs: Laboratory Last Values WBC 19.2 K/mm3 (4.5-11.0) H 11/15/18 03:46 RBC 3.54 M/mm3 (3.65-5.03) L 11/15/18 03:46 Hgb 10.1 gm/dl (11.8-15.2) L 11/15/18 03:46 Hct 30.1 % (35.5-45.6) L 11/15/18 03:46 MCV 85 fl (84-94) 11/15/18 03:46 MCH 29 pg (28-32) 11/15/18 03:46 MCHC 34 % (32-34) 11/15/18 03:46 RDW 15.3 % (13.2-15.2) H 11/15/18 03:46 Plt Count 63 K/mm3 (140-440) L 11/15/18 03:46 Lymph % (Auto) Supervisor Carding 11/11/18 19:14 [place] % (Auto) Supervisor Carding 11/13/18 07:29 Eos % (Auto) Supervisor Carding 11/11/18 19:14 Baso % (Auto) Supervisor Carding 11/11/18 19:14 Lymph # Supervisor Carding 11/11/18 19:14 [place] # Supervisor Carding 11/11/18 19:14 Eos # Supervisor Carding 11/11/18 19:14 Baso # Supervisor Carding 11/11/18 19:14 Add Manual Diff Complete 11/15/18 03:46 Total Counted 100 11/15/18 03:46 Seg Neutrophils % Supervisor Carding 11/11/18 19:14 Seg Neuts % (Manual) 92.0 % (40.0-70.0) H 11/15/18 03:46 1.0 % 11/15/18 03:46 4.0 % (13.4-35.0) L 11/15/18 03:46 Reactive Lymphs % (Man) 0 % 11/15/18 03:46 2.0 % (0.0-7.3) 11/15/18 03:46 1.0 % (0.0-4.3) 11/15/18 03:46 0 % (0.0-1.8) 11/15/18 03:46 0 % 11/15/18 03:46 0 % 11/15/18 03:46 0 % 11/15/18 03:46 0 % 11/15/18 03:46 Nucleated RBC % Not Reportable 11/15/18 03:46 Seg Neutrophils # Supervisor Carding 11/11/18 19:14 Seg Neutrophils # Man 17.7 K/mm3 (1.8-7.7) H 11/15/18 03:46 Band Neutrophils # 0.2 K/mm3 11/15/18 03:46 0.8 K/mm3 (1.2-5.4) L 11/15/18 03:46 Abs React Lymphs (Man) 0.0 K/mm3 11/15/18 03:46 0.4 K/mm3 (0.0-0.8) 11/15/18 03:46 0.2 K/mm3 (0.0-0.4) 11/15/18 03:46 0.0 K/mm3 (0.0-0.1) 11/15/18 03:46 0.0 K/mm3 11/15/18 03:46 0.0 K/mm3 11/15/18 03:46 0.0 K/mm3 11/15/18 03:46 Blast Cells # 0.0 K/mm3 11/15/18 03:46 WBC Morphology Not Reportable 11/15/18 03:46 Hypersegmented Neuts Not Reportable 11/15/18 03:46 Hyposegmented Neuts Not Reportable 11/15/18 03:46 Hypogranular Neuts Not Reportable 11/15/18 03:46 Not Reportable 11/15/18 03:46 Not Reportable 11/15/18 03:46 Not Reportable 11/15/18 03:46 Not Reportable 11/15/18 03:46 Not Reportable 11/15/18 03:46 Not Reportable 11/15/18 03:46 Consistent w auto 11/15/18 03:46 Not Reportable 11/15/18 03:46 Plt Clumps, EDTA Not Reportable 11/15/18 03:46 Not Reportable 11/15/18 03:46 Not Reportable 11/15/18 03:46 Not Reportable 11/15/18 03:46 Plt Morphology Comment Not Reportable 11/15/18 03:46 RBC Morphology Not Reportable 11/15/18 03:46 Dimorphic RBCs Not Reportable 11/15/18 03:46 Few 11/15/18 03:46 Not Reportable 11/15/18 03:46 Not Reportable 11/15/18 03:46 Not Reportable 11/15/18 03:46 Not Reportable 11/15/18 03:46 Not Reportable 11/15/18 03:46 Not Reportable 11/15/18 03:46 Not Reportable 11/15/18 03:46 Not Reportable 11/15/18 03:46 Few 11/15/18 03:46 Not Reportable 11/15/18 03:46 Not Reportable 11/15/18 03:46 Not Reportable 11/15/18 03:46 Not Reportable 11/15/18 03:46 Not Reportable 11/15/18 03:46 Not Reportable 11/15/18 03:46 Not Reportable 11/15/18 03:46 Not Reportable 11/15/18 03:46 Not Reportable 11/15/18 03:46 Acanthocytes (Spur) Not Reportable 11/15/18 03:46 Rouleaux Not Reportable 11/15/18 03:46 Not Reportable 11/15/18 03:46 Not Reportable 11/15/18 03:46 Not Reportable 11/15/18 03:46 Not Reportable 11/15/18 03:46 Hem Pathologist Commnt No 11/15/18 03:46 Sodium 141 mmol/L (137-145) 11/15/18 03:46 Potassium 5.3 mmol/L (3.6-5.0) H 11/15/18 03:46 Chloride 96.7 mmol/L (98-107) L 11/15/18 03:46 Carbon Dioxide 25 mmol/L (22-30) 11/15/18 03:46 25 mmol/L 11/15/18 03:46 BUN 80 mg/dL (9-20) H 11/15/18 03:46 5.4 mg/dL (0.8-1.5) H 11/15/18 03:46 Estimated GFR 13 ml/min 11/15/18 03:46 15 % 11/15/18 03:46 Glucose 140 mg/dL (75-100) H 11/15/18 03:46 Lactic Acid 2.00 mmol/L (0.7-2.0) 11/11/18 17:45 Calcium 9.7 mg/dL (8.4-10.2) 11/15/18 03:46 Phosphorus 3.70 mg/dL (2.5-4.5) 11/11/18 23:15 0.80 mg/dL (0.1-1.2) 11/11/18 17:45 AST 35 units/L (5-40) 11/11/18 17:45 ALT 12 units/L (7-56) 11/11/18 17:45 88 units/L (35-129) 11/11/18 17:45 363 units/L (55-170) H 11/12/18 03:33 CK-MB (CK-2) 4.0 ng/mL (0.0-4.0) 11/12/18 03:33 CK-MB (CK-2) Rel Index 1.1 (0-4) 11/12/18 03:33 0.274 ng/mL (0.00-0.029) H* 11/12/18 03:33 8.0 g/dL (6.3-8.2) 11/11/18 17:45 3.1 g/dL (3.9-5) L 11/11/18 17:45 0.6 % 11/11/18 17:45 Triglycerides 380 mg/dL (2-149) H 11/11/18 17:45 Cholesterol 117 mg/dL (50-199) 11/11/18 17:45 8 mg/dL (50-130) L 11/11/18 17:45 8 mg/dL (40-59) L 11/11/18 17:45 14.62 % 11/11/18 17:45 Random Vancomycin 25.3 ug/mL (0-40.0) 11/15/18 03:46 Hepatitis A IgM Ab Non-reactive (NonReactive) 11/12/18 10:01 Hep Bs Antigen Non-reactive (Negative) 11/12/18 10:01 Hep B Core IgM Ab Non-reactive (NonReactive) 11/12/18 10:01 Non-reactive (NonReactive) 11/12/18 10:01 Active Medications - Current Medications Current Medications: Generic Name Dose Route Start Last Admin Trade Name Freq PRN Reason Stop Dose Admin Acetaminophen 650 mg 11/11/18 23:03 11/16/18 08:10 Tylenol [place] 650 mg Q4H PRN Administration Pain, Mild (1-3) Epoetin Jeramy 10,000 unit 11/16/18 10:00 Procrit SUB-Q 3XW ISABELLA Sodium Chloride 100 mls @ 999 mls/hr 11/12/18 09:38 Nacl 0.9% IV SISSY PRN Hypotension Sodium Chloride 100 mls @ 999 mls/hr 11/13/18 13:19 Nacl 0.9% IV SISSY PRN Hypotension Cefazolin Sodium 1 gm in 50 mls @ 100 mls/hr 11/15/18 18:00 11/15/18 18:31 Ancef/Ns 1 Gm/50 Ml IV Infused QPM ISABELLA Infusion Protocol Ondansetron HCl 4 mg 11/11/18 22:59 11/13/18 01:31 Zofran IV 4 mg Q4H PRN Administration Nausea And Vomiting Sodium Chloride 10 ml 11/12/18 10:00 11/16/18 10:03 Sodium Chloride Flush Syringe 10 Ml IV Not Given BID ISABELLA Sodium Chloride 10 ml 11/11/18 22:59 Sodium Chloride Flush Syringe 10 Ml IV PRN PRN LINE FLUSH Nutrition/Malnutrition Assess - Dietary Evaluation Nutrition/Malnutrition Findings: Nutrition Notes Start: 11/12/18 14:51 Freq: Status: Active Protocol: Document 11/13/18 12:35 DW (Rec: 11/13/18 13:17 DW [id number]) Co-Sign 11/13/18 12:35 LP Nutrition Notes Initial or Follow up Assessment Current Diagnosis CKD (stage V CKD),Hypertension Other Pertinent Diagnosis ESRD on HD, Hyperparathyroidism, Dysphagia , Pneu Current Diet NPO Labs/Tests K:6.5 Na:135 Pertinent Medications Reviewed Height 5 ft 6 in Weight 73.5 kg [place] Body Weight (kg) 64.54 BMI 26.1 Subjective/Other Information Pt had trouble communicating d /t s/p permicath removal. Pt was able to state that he does not have a good appetite and has not eaten well since he has been in the hospital. Per nurse, pt was feeding him breakfast but he did not eat much. Was unable to perform NFPE d/t pt strength at time of arrival no temporal wasting was present Burn Absent Trauma Absent GI Symptoms None Food Allergy No Minimum of two criteria No #1 Nutrition Diagnosis Inadequate energy intake Etiology lack of appetite As Evidenced by Signs and Symptoms Pt has not eaten since he has been in hospital Is patient on ventilator? No Is Patient Ambulatory and/or Out of Bed No REE-([facility]-confined to bed) 9716.784 Additional Notes PRO needs: 74-88g (1-1.2 g/kg) Fluid needs: 1-1.5 L/day Nutrition Intervention Change Diet Order: Advance when medically able Add Supplement/Snack (indicate name/kcal Nepro BID /protein ) Provides kCal: 850 Provides Protein (gm) 38 Goal #1 Meet atleast 75% of energy and PRO needs via PO and ONS Anticipated Discharge Needs: Renal Diet and ONS BID Follow-Up By: 11/16/18 Additional Comments FU PO and ONS tolerance
--- NOTE | 2018-11-16 14:09 | Cat Scan Report ---
CT head/brain wo con INDICATION / CLINICAL INFORMATION: 73 years Male; altered mental status. TECHNIQUE: Routine CT head without contrast. All CT scans at this location are performed using CT dos e reduction for ALARA by means of automated exposure control. COMPARISON: None. FINDINGS: BRAIN / INTRACRANIAL CONTENTS: Small arachnoid cyst is seen along the superolateral margin of the lef t cerebellar hemisphere-of no clinical significance. Otherwise, no acute hemorrhage, mass effect, midline shift, hydrocephalus, or acute, large territoria l infarct. Mild cerebral atrophy suggested. There are minimal areas of decreased attenuation in the white matter of the cerebral hemispheres, as well as the gangliocapsular regions. These are nonspecific findings and may be related to microangiop athy (hypertension, diabetes, atherosclerosis), given the patient's age. CRANIOCERVICAL JUNCTION: No significant abnormality. ORBITS: No significant abnormality of visualized orbits. SINUSES / MASTOIDS: No significant abnormality of the visualized paranasal sinuses or mastoid air adrián ls. ADDITIONAL FINDINGS: Atherosclerotic disease is seen in the anterior circulation. IMPRESSION: 1. No focal intra-axial mass, hemorrhage, hydrocephalus, or acute, large territorial infarct. Signer Name: Gerson York MD, III Signed: 11/16/2018 2:05 PM Workstation Name: [id number]
--- NOTE | 2018-11-16 16:13 | Progress Note ---
Assessment and Plan Cultures: 11/12/2018 wound culture: MSSA 11/12/2018 vas cath culture: MSSA 11/12/2018 blood culture: MSSA 11/15/2018 blood culture: no growth thus far Assessment: 73 yo M PMHx HTN, ESRD on HD, hyperparathyroidism, OA admitted with renal failure and a vascular catheter infection. 1. MSSA bacteremia secondary to Vascular catheter infection: catheter removed already. Needs repeat blood cultures to ensure clearance. TTE unremarkable for any vegetations. 2. Pneumonia - vs fluid overload. 3. ESRD on HD - renally dose antibiotics. Nephrology following. 4. HTN 5. Hyperparathyroidism. 6. Acute encephalopathy: Recs: WBC worsening, mental status worse today, CT head unremarkable. will switch Cefazolin to Cefepime, Flagyl and Vancomycin. Low threshold for CT chest, abdomen and pelvis if clinically worsens once 11/15/2018 blood cultures are negative at 48 hours, a new HD cath placed anticipate 4 weeks of post HD Cefazolin upon discharge at the dialysis center D/W Dr. Angel Braun MD, FACP [facility] C: [phone] O: [phone] F: [phone] Subjective Date of service: 11/16/18 Principal diagnosis: end-stage renal disease with line sepsis Interval history: No fever. More drowsy today, underwent CT head. Family member at bedside. Objective - Exam Narrative Exam: Physical Exam: Constitutional: drowsy today. confused Head, Ears, Nose: Normocephalic, atraumatic. External ears, nose normal Eyes: Conjunctivae/corneas clear. No icterus. No ptosis. Neck: Supple, no meningeal signs Cardiovascular: S1, S2 normal. Respiratory: Good air entry, clear to auscultation bilaterally GI: Soft, non-tender; bowel sounds normal. No peritoneal signs Musculoskeletal: No pedal edema, no cyanosis. Groin HD cath +. R subclavian dressing + Skin: No rash or abscess Hem/Lymphatic: No palpable cervical or supraclavicular nodes. No lymphangitis Psych: confused Neurological: drowsy - Constitutional Vitals: Vital Signs Temp Pulse Resp BP Pulse Ox 98.9 F 78 20 112/49 96 11/16/18 07:31 11/16/18 07:31 11/16/18 10:00 11/16/18 07:31 11/16/18 08:23 Temperature -Last 24 Hours Temperature 98.9 F Temperature 98.6 F Temperature 98.8 F - Labs CBC & Chem 7: 11/15/18 03:46 11/15/18 03:46 - Imaging and cardiology CT Scan - head: report reviewed, image reviewed (negative for acute intracranial abnormality)
[2018-11-16] MEDS: oxyCODONE /ACETAMINOPHEN 5-325MG TAB PO PRN (16:33)
--- NOTE | 2018-11-16 16:37 | Event Note ---
Date: 11/16/18 NPO after MN except sips of water with meds. Permcath placement tomorrow.
[2018-11-16] MEDS ORDERED: VANCOMYCIN PHARMACY TO DOSE IV SCH (17:00)
[2018-11-16] MEDS: metroNIDAZOLE/NS 500 MG/100 ML 500 MG/100 ML BAG IV SCH ×2 (17:45→21:50)
[2018-11-16] MEDS: CEFEPIME/NS 1 GM/100 ML 1 GM/100 ML BAG IV SCH (20:10)
[2018-11-17] MEDS: metroNIDAZOLE/NS 500 MG/100 ML 500 MG/100 ML BAG IV SCH ×3 (05:03→21:35)
[2018-11-17 06:43] LABS: Hematocrit 26.5 % (35.5-45.6); Hemoglobin 9.1 gm/dl (11.8-15.2); Mean Corpuscular HGB Conc 34 % (32-34); Mean Corpuscular Volume 84 fl (84-94); Red Blood Count 3.17 M/mm3 (3.65-5.03); Red Cell Distribution Width 15.6 % (13.2-15.2)
[2018-11-17 06:49] LABS: Platelet Count 82 K/mm3 (140-440)
[2018-11-17 07:09] LABS: Calcium 9.6 mg/dL (8.4-10.2)
[2018-11-17] MEDS ORDERED: DEXTROSE 50% IN WATER (25GM) 50 ML SYRINGE IV STA (08:06)
[2018-11-17] MEDS ORDERED: INSULIN REGULAR, HUMAN 100 UNITS/1 ML IV ONE ×2 (08:45→16:00)
[2018-11-17] MEDS ORDERED: SODIUM BICARB 8.4% 50 MEQ/50 ML SYRINGE IV ONE ×2 (08:45→16:00)
[2018-11-17 08:53] LABS: Band Neutrophils # (Manual) 0.5 K/mm3; Basophils % (Manual) 0 % (0.0-1.8); Eosinophils % (Manual) 0 % (0.0-4.3); Target Cells 1+; Total Cells Counted 100
[2018-11-17 08:54] LABS: Hypochromasia Few; Large Platelets Few; Tear Drop Cells Few
[2018-11-17 08:55] LABS: Platelet Estimate Consistent w Auto
[2018-11-17] MEDS ORDERED: CALCIUM GLUCONATE 1,000 MG in SODIUM CHLORIDE 0.9% 100 ML IV ONE (09:00)
[2018-11-17] MEDS ORDERED: DEXTROSE 50% IN WATER (25GM) 50 ML VIAL IV ONE (09:00)
[2018-11-17] MEDS ORDERED: SODIUM CHLORIDE*PRIMING MACHINE ONLY FOR DIALYSIS MC ONE (10:33)
--- NOTE | 2018-11-17 10:48 | Progress Note ---
Assessment and Plan Assessment and plan: --Metabolic encephalopathy; multifactorial Probably secondary to sepsis, end-stage renal disease and uremia CT head negative, closely monitor --Infected permacath; empiric antibiotics, s/p vascath placement. Dr. Spence to place PermCath today --Sepsis secondary to Staph aureus; infected permacath Continue vancomycin and cefepime and Flagyl. ID following. --ESRD on dialysis; nephrology following Avoid nephrotoxins, HD per schedule --Community-acquired pneumonia: Empiric antibiotics, f/u cultures --History of Dysphagia; speech evaluated the patient Cleared for oral diet, no symptoms of dysphagia --Hypertension; moderate control Closely monitor blood pressures and adjust as needed --Thrombocytopenia; no evidence of bleeding Closely monitor platelets, consult hematology if needed --DVT prophylaxis; heparin renal dose --Full code; History Interval history: 73-year-old -Guyanese male patient with significant past medical history of end-stage renal disease on hemodialysis osteoarthritis was admitted through emergency room with worsening shortness of breath, fluid overload, Patient was evaluated noted to have infected right IJ permacath with purulent drainage., Subsequently permacath removed and and patient received vascular And hemodialysis per schedule, Wound and blood cultures are consistent with staph aureus ID evaluated the patient placed on appropriate IV antibiotics Patient had intermittent confusion CT head today negative for acute abnormalities Hospitalist Physical - Constitutional Vitals: Temp Pulse Resp BP Pulse Ox 98.5 F 80 20 105/48 93 11/17/18 07:07 11/17/18 07:07 11/17/18 07:07 11/17/18 07:07 11/17/18 07:07 General appearance: Present: no acute distress, well-nourished - EENT Eyes: Present: PERRL, EOM intact ENT: hearing intact, clear oral mucosa, dentition normal - Neck Neck: Present: supple, normal ROM - Respiratory Respiratory effort: normal Respiratory: bilateral: CTA - Cardiovascular Rhythm: regular Heart Sounds: Present: S1 & S2. Absent: gallop, rub - Extremities Extremities: no ischemia, No edema, Full ROM - Abdominal General gastrointestinal: soft, non-tender, non-distended, normal bowel sounds - Integumentary Integumentary: Present: clear, warm, dry - Neurologic Neurologic: CNII-XII intact, moves all extremities Results - Labs CBC & Chem 7: 11/17/18 06:09 11/17/18 06:09 Labs: Laboratory Last Values WBC 15.8 K/mm3 (4.5-11.0) H 11/17/18 06:09 RBC 3.17 M/mm3 (3.65-5.03) L 11/17/18 06:09 Hgb 9.1 gm/dl (11.8-15.2) L 11/17/18 06:09 Hct 26.5 % (35.5-45.6) L 11/17/18 06:09 MCV 84 fl (84-94) 11/17/18 06:09 MCH 29 pg (28-32) 11/17/18 06:09 MCHC 34 % (32-34) 11/17/18 06:09 RDW 15.6 % (13.2-15.2) H 11/17/18 06:09 Plt Count 82 K/mm3 (140-440) L 11/17/18 06:09 Lymph % (Auto) Shear Operator 11/11/18 19:14 [place] % (Auto) Shear Operator 11/13/18 07:29 Eos % (Auto) Shear Operator 11/11/18 19:14 Baso % (Auto) Shear Operator 11/11/18 19:14 Lymph # Shear Operator 11/11/18 19:14 [place] # Shear Operator 11/11/18 19:14 Eos # Shear Operator 11/11/18 19:14 Baso # Shear Operator 11/11/18 19:14 Add Manual Diff Complete 11/17/18 06:09 Total Counted 100 11/17/18 06:09 Seg Neutrophils % Shear Operator 11/11/18 19:14 Seg Neuts % (Manual) 83.0 % (40.0-70.0) H 11/17/18 06:09 3.0 % 11/17/18 06:09 7.0 % (13.4-35.0) L 11/17/18 06:09 Reactive Lymphs % (Man) 0 % 11/17/18 06:09 4.0 % (0.0-7.3) 11/17/18 06:09 0 % (0.0-4.3) 11/17/18 06:09 0 % (0.0-1.8) 11/17/18 06:09 3.0 % 11/17/18 06:09 0 % 11/17/18 06:09 0 % 11/17/18 06:09 0 % 11/17/18 06:09 Nucleated RBC % Not Reportable 11/17/18 06:09 Seg Neutrophils # Shear Operator 11/11/18 19:14 Seg Neutrophils # Man 13.1 K/mm3 (1.8-7.7) H 11/17/18 06:09 Band Neutrophils # 0.5 K/mm3 11/17/18 06:09 1.1 K/mm3 (1.2-5.4) L 11/17/18 06:09 Abs React Lymphs (Man) 0.0 K/mm3 11/17/18 06:09 0.6 K/mm3 (0.0-0.8) 11/17/18 06:09 0.0 K/mm3 (0.0-0.4) 11/17/18 06:09 0.0 K/mm3 (0.0-0.1) 11/17/18 06:09 0.5 K/mm3 11/17/18 06:09 0.0 K/mm3 11/17/18 06:09 0.0 K/mm3 11/17/18 06:09 Blast Cells # 0.0 K/mm3 11/17/18 06:09 WBC Morphology Not Reportable 11/17/18 06:09 Hypersegmented Neuts Not Reportable 11/17/18 06:09 Hyposegmented Neuts Not Reportable 11/17/18 06:09 Hypogranular Neuts Not Reportable 11/17/18 06:09 Not Reportable 11/17/18 06:09 Not Reportable 11/17/18 06:09 Not Reportable 11/17/18 06:09 Not Reportable 11/17/18 06:09 Not Reportable 11/17/18 06:09 Not Reportable 11/17/18 06:09 Consistent w auto 11/17/18 06:09 Not Reportable 11/17/18 06:09 Plt Clumps, EDTA Not Reportable 11/17/18 06:09 Few 11/17/18 06:09 Not Reportable 11/17/18 06:09 Not Reportable 11/17/18 06:09 Plt Morphology Comment Not Reportable 11/17/18 06:09 RBC Morphology Not Reportable 11/17/18 06:09 Dimorphic RBCs Not Reportable 11/17/18 06:09 Few 11/17/18 06:09 Few 11/17/18 06:09 Not Reportable 11/17/18 06:09 Not Reportable 11/17/18 06:09 Not Reportable 11/17/18 06:09 Not Reportable 11/17/18 06:09 Not Reportable 11/17/18 06:09 Not Reportable 11/17/18 06:09 Not Reportable 11/17/18 06:09 1+ 11/17/18 06:09 Few 11/17/18 06:09 Not Reportable 11/17/18 06:09 Not Reportable 11/17/18 06:09 Not Reportable 11/17/18 06:09 Not Reportable 11/17/18 06:09 Not Reportable 11/17/18 06:09 Not Reportable 11/17/18 06:09 Not Reportable 11/17/18 06:09 Not Reportable 11/17/18 06:09 Acanthocytes (Spur) Not Reportable 11/17/18 06:09 Rouleaux Not Reportable 11/17/18 06:09 Not Reportable 11/17/18 06:09 Not Reportable 11/17/18 06:09 Not Reportable 11/17/18 06:09 Not Reportable 11/17/18 06:09 Hem Pathologist Commnt No 11/17/18 06:09 Sodium 143 mmol/L (137-145) 11/17/18 06:09 Potassium 6.2 mmol/L (3.6-5.0) H* 11/17/18 06:09 Chloride 97.8 mmol/L (98-107) L 11/17/18 06:09 Carbon Dioxide 19 mmol/L (22-30) L 11/17/18 06:09 32 mmol/L 11/17/18 06:09 BUN 170 mg/dL (9-20) H 11/17/18 06:09 10.2 mg/dL (0.8-1.5) H D 11/17/18 06:09 Estimated GFR 6 ml/min 11/17/18 06:09 17 % 11/17/18 06:09 Glucose 121 mg/dL (75-100) H 11/17/18 06:09 POC Glucose 134 (70-105) H 11/17/18 06:11 Lactic Acid 2.00 mmol/L (0.7-2.0) 11/11/18 17:45 Calcium 9.6 mg/dL (8.4-10.2) 11/17/18 06:09 Phosphorus 3.70 mg/dL (2.5-4.5) 11/11/18 23:15 0.80 mg/dL (0.1-1.2) 11/11/18 17:45 AST 35 units/L (5-40) 11/11/18 17:45 ALT 12 units/L (7-56) 11/11/18 17:45 88 units/L (35-129) 11/11/18 17:45 363 units/L (55-170) H 11/12/18 03:33 CK-MB (CK-2) 4.0 ng/mL (0.0-4.0) 11/12/18 03:33 CK-MB (CK-2) Rel Index 1.1 (0-4) 11/12/18 03:33 0.274 ng/mL (0.00-0.029) H* 11/12/18 03:33 8.0 g/dL (6.3-8.2) 11/11/18 17:45 3.1 g/dL (3.9-5) L 11/11/18 17:45 0.6 % 11/11/18 17:45 Triglycerides 380 mg/dL (2-149) H 11/11/18 17:45 Cholesterol 117 mg/dL (50-199) 11/11/18 17:45 8 mg/dL (50-130) L 11/11/18 17:45 8 mg/dL (40-59) L 11/11/18 17:45 14.62 % 11/11/18 17:45 Random Vancomycin 24.5 ug/mL (0-40.0) 11/17/18 06:09 Hepatitis A IgM Ab Non-reactive (NonReactive) 11/12/18 10:01 Hep Bs Antigen Non-reactive (Negative) 11/12/18 10:01 Hep B Core IgM Ab Non-reactive (NonReactive) 11/12/18 10:01 Non-reactive (NonReactive) 11/12/18 10:01 Active Medications - Current Medications Current Medications: Generic Name Dose Route Start Last Admin Trade Name Freq PRN Reason Stop Dose Admin Acetaminophen 650 mg 11/11/18 23:03 11/16/18 08:10 Tylenol GA 650 mg Q4H PRN Administration Pain, Mild (1-3) Epoetin Jeramy 10,000 unit 11/16/18 10:00 Procrit SUB-Q TuThSa ISABELLA Sodium Chloride 100 mls @ 999 mls/hr 11/13/18 13:19 Nacl 0.9% IV SISSY PRN Hypotension Metronidazole 500 mg in 100 mls @ 100 mls/hr 11/16/18 17:00 11/17/18 05:03 Flagyl 500 Mg/100 Ml IV 100 mls/hr Q8HR ISABELLA Administration Protocol Cefepime HCl 1 gm in 100 mls @ 200 mls/hr 11/16/18 18:00 11/16/18 20:10 Maxipime/Ns 1 Gm/100 Ml IV 200 mls/hr QPM ISABELLA Administration Protocol Ondansetron HCl 4 mg 11/11/18 22:59 11/13/18 01:31 Zofran IV 4 mg Q4H PRN Administration Nausea And Vomiting Oxycodone/Acetaminophen 1 tab 11/16/18 16:10 11/16/18 16:33 Percocet 5/325 PO 1 tab Q6H PRN Administration Pain, Moderate (4-6) Sodium Chloride 10 ml 11/12/18 10:00 11/16/18 21:50 Sodium Chloride Flush Syringe 10 Ml IV 10 ml BID ISABELLA Administration Sodium Chloride 10 ml 11/11/18 22:59 Sodium Chloride Flush Syringe 10 Ml IV PRN PRN LINE FLUSH Nutrition/Malnutrition Assess - Dietary Evaluation Nutrition/Malnutrition Findings: Nutrition Notes Start: 11/12/18 14:51 Freq: Status: Active Protocol: Document 11/16/18 14:20 LM (Rec: 11/16/18 14:26 LM [id number]) Nutrition Notes Initial or Follow up Reassessment Current Diagnosis CKD (stage V CKD),Hypertension Other Pertinent Diagnosis ESRD on HD, Hyperparathyroidism, Dysphagia , Pneu Current Diet Renal diet Labs/Tests K 5.3 BUN 80 Cr 5.4 BG 140 Pertinent Medications Reviewed Height 5 ft 6 in Weight 73.5 kg [place] Body Weight (kg) 64.54 BMI 26.1 Subjective/Other Information Family member stated that pt ate well last night but is not feeling well today. Pt only ate some cream of wheat this AM. Family member unaware of Nepro and did not see Nepro in pt's room. Burn Absent Trauma Absent Minimum of two criteria No #1 Nutrition Diagnosis Inadequate energy intake Diagnosis Progress(for reassessment Continues documentation) Is patient on ventilator? No Is Patient Ambulatory and/or Out of Bed No REE-([facility]-confined to bed) [phone] Additional Notes PRO needs: 88g (>1.2 g/kg) Fluid needs: 1-1.5 L/day Nutrition Intervention Change Diet Order: Continue renal diet Add Supplement/Snack (indicate name/kcal Nepro BID /protein ) Provides kCal: 850 Provides Protein (gm) 38 Goal #1 Meet at least 75% of energy and PRO needs via PO and ONS Anticipated Discharge Needs: Renal Diet and ONS BID Follow-Up By: 11/18/18 Additional Comments F/U for PO/ONS intakes
--- NOTE | 2018-11-17 12:21 | Progress Note ---
Assessment and Plan Cultures: 11/12/2018 wound culture: MSSA 11/12/2018 vas cath culture: MSSA 11/12/2018 blood culture: MSSA 11/15/2018 blood culture: no growth thus far Assessment: 73 yo M PMHx HTN, ESRD on HD, hyperparathyroidism, OA admitted with renal failure and a vascular catheter infection. 1. MSSA bacteremia secondary to Vascular catheter infection: catheter removed already. Awaiting repeat blood cultures to ensure clearance. TTE unremarkable for any vegetations. 2. Pneumonia - vs fluid overload. On empiric abx. 3. ESRD on HD - renally dose antibiotics. Nephrology following. 4. HTN 5. Hyperparathyroidism. 6. Acute encephalopathy: CT head unremarkable. Etiology unclear, ? consider MRI brain. Recs: continue renally adjusted IV Cefepime, Flagyl and Vancomycin. once 11/15/2018 blood cultures are negative at 48 hours, a new HD cath can be placed anticipate 4 weeks of post HD Cefazolin upon discharge at the dialysis center ?consider MRI brain given poor mental status d/w Dr. Velasquez. Belinda Braun MD, FACP [facility] ([facility] C: [phone] O: [phone] F: [phone] Subjective Date of service: 11/17/18 Principal diagnosis: end-stage renal disease with line sepsis Interval history: No fever. Seen at dialysis. Mental status remains poor. Unable to provide history. Objective - Exam Narrative Exam: Physical Exam: Constitutional: comatose, non verbal Head, Ears, Nose: Normocephalic, atraumatic. External ears, nose normal Eyes: Conjunctivae/corneas clear. No icterus. No ptosis. Neck: Supple, no meningeal signs Cardiovascular: S1, S2 normal. Respiratory: Good air entry, clear to auscultation bilaterally GI: Soft, non-tender; bowel sounds normal. No peritoneal signs Musculoskeletal: No pedal edema, no cyanosis. R femoral HD cath +. R subclavian dressing + Skin: No rash or abscess Hem/Lymphatic: No palpable cervical or supraclavicular nodes. No lymphangitis Psych: comatose Neurological: comatose, non verbal - Constitutional Vitals: Vital Signs Temp Pulse Resp BP Pulse Ox 98.0 F 101 H 20 96/50 93 11/17/18 09:30 11/17/18 11:00 11/17/18 10:00 11/17/18 11:00 11/17/18 10:00 Temperature -Last 24 Hours Temperature 98.0 F Temperature 98.5 F Temperature 98.5 F Temperature 98.6 F - Labs CBC & Chem 7: 11/17/18 06:09 11/17/18 06:09 Labs: Abnormal lab results 11/17/18 11/17/18 11/17/18 Range/Units 06:09 06:09 06:11 WBC 15.8 H (4.5-11.0) K/mm3 RBC 3.17 L (3.65-5.03) M/mm3 Hgb 9.1 L (11.8-15.2) gm/dl Hct 26.5 L (35.5-45.6) % RDW 15.6 H (13.2-15.2) % Plt Count 82 L (140-440) K/mm3 Seg Neuts % (Manual) 83.0 H (40.0-70.0) % Lymphocytes % (Manual) 7.0 L (13.4-35.0) % Seg Neutrophils # Man 13.1 H (1.8-7.7) K/mm3 Lymphocytes # (Manual) 1.1 L (1.2-5.4) K/mm3 Potassium 6.2 H* (3.6-5.0) mmol/L Chloride 97.8 L (98-107) mmol/L Carbon Dioxide 19 L (22-30) mmol/L BUN 170 H (9-20) mg/dL Creatinine 10.2 H D (0.8-1.5) mg/dL Glucose 121 H (75-100) mg/dL POC Glucose 134 H (70-105) Ammonia (25-60) umol/L 11/17/18 Range/Units 11:41 WBC (4.5-11.0) K/mm3 RBC (3.65-5.03) M/mm3 Hgb (11.8-15.2) gm/dl Hct (35.5-45.6) % RDW (13.2-15.2) % Plt Count (140-440) K/mm3 Seg Neuts % (Manual) (40.0-70.0) % Lymphocytes % (Manual) (13.4-35.0) % Seg Neutrophils # Man (1.8-7.7) K/mm3 Lymphocytes # (Manual) (1.2-5.4) K/mm3 Potassium (3.6-5.0) mmol/L Chloride (98-107) mmol/L Carbon Dioxide (22-30) mmol/L BUN (9-20) mg/dL Creatinine (0.8-1.5) mg/dL Glucose (75-100) mg/dL POC Glucose (70-105) Ammonia 68.0 H (25-60) umol/L
[2018-11-17] MEDS ORDERED: fentaNYL 100 MCG/2 ML INJ ONE (13:07)
[2018-11-17] MEDS ORDERED: MIDAZOLAM 2 MG/2 ML INJ ONE (13:07)
[2018-11-17] MEDS ORDERED: HEPARIN/NS 5000 UNIT/500ML 500 ML IR ONE (13:08)
[2018-11-17] MEDS ORDERED: SODIUM CHLORIDE 0.9% 250ML 250 ML ONE (13:08)
[2018-11-17] MEDS: LIDOCAINE 1%/EPINEPHRINE 1:100,000 VIAL (20 ML) INFILTRATI ONE ×2 (13:37→14:03)
[2018-11-17] MEDS: HEPARIN 10,000 UNITS/10 ML VIAL ONE ×4 (13:38→14:18)
--- NOTE | 2018-11-17 14:38 | Operative Report ---
Operative Report Operative Report: EXAM: 1. Ultrasound-guided puncture of the left internal jugular vein 2. Fluoroscopic-guided placement of a left internal jugular tunneled cuffed hemodialysis catheter. DATE: 11/17/18 INDICATION: ESRD requiring hemodialysis access. MEDICATIONS: Please see nursing report for full details. DEVICES: 27 cm tip to cuff 15 Fr dual lumen hemodialysis catheter INSURANCE SALES MANAGER: LARRY SHINE MD CONTRAST: None PROCEDURE: The risks, benefits, and alternatives were discussed and informed consent was obtained. The patient was transported to the angiography suite in satisfactory/stable condition and was transported onto the angiography table. The patient's left internal jugular vein was assessed with ultrasound and determined to be patent prior to procedure. The patient was prepped and draped in a sterile fashion. The puncture site was anesthetized. Under sonographic guidance, the left internal jugular vein was punctured with a 21-gauge micropuncture needle and a 0.018 inch wire was advanced into the inferior vena cava. The micropuncture needle was exchanged for a transitional dilator and the wire was retracted into the right atrium to jeni intravascular distance. The wire and inner dilator were removed. 0.035 inch Amplatz wire was advanced through the transitional dilator into the inferior vena cava. A suitable exit site was identified on the patient's chest inferior and lateral to the venotomy. The site was anesthetized with local anesthetic and the track was anesthetized. Dermatotomy was made. The PermCath was attached to the tunneling device and tunneled between the dermatotomy to the venotomy. Over the 0.035 inch wire, serial dilatation was performed with ultimate placement of a peel-away sheath. The catheter was advanced through the peel- away sheath after the wire was removed and positioned centrally under fluoroscopic guidance. The peel-away sheath was removed. 3-0 Vicryl suture was used to close the venotomy and Dermabond was then applied. 2-0 Ethilon suture was used to secure the catheter at the dermatotomy. The catheter was charged with heparin 1000 units/mL space. Sterile dressing and biopatch applied. The patient was transferred from the angiography suite back to the floor in stable condition. FINDINGS: 1. Excellent flow was obtained through the dialysis catheter with 20 mL syringes. 2. The catheter tip is in the right atrium. IMPRESSION: 1. Successful ultrasound and fluoroscopically guided placement of a left internal jugular tunneled cuffed hemodialysis catheter.
[2018-11-17] MEDS: CEFEPIME/NS 1 GM/100 ML 1 GM/100 ML BAG IV SCH (17:16)
--- NOTE | 2018-11-17 19:26 | Progress Note ---
Assessment and Plan - Patient Problems (1) Sepsis due to infected central venous catheter Current Visit: Yes Status: Acute Plan to address problem: Continue antibiotics. Follow-up cultures (2) End stage renal disease Current Visit: Yes Status: Acute Plan to address problem: Hemodialysis daily for 3 days given the elevated BUNs/creatinine. (3) Altered mental status Current Visit: Yes Status: Acute Plan to address problem: CT head was negative. Concerned about septic emboli to the brain. BUN is also quite high and with ongoing infection raises the possibility of toxic/metabolic encephalopathy. Hemodialysis daily for 3 days. If mental status still not improving after dialysis tomorrow, consider MRI of the brain (4) Hyperkalemia Current Visit: Yes Status: Acute Plan to address problem: Potassium was again high today. Follow-up after dialysis 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 chronic kidney disease or end stage renal disease Current Visit: Yes Status: Chronic Plan to address problem: Follow-up blood pressure on current medications (6) Anemia in CKD (chronic kidney disease) Current Visit: No Status: Acute Qualifiers: Chronic kidney disease stage: stage 5, not on chronic dialysis Qualified Code(s): N18.5 - Chronic kidney disease, stage 5; D63.1 - Anemia in chronic kidney disease Plan to address problem: Give erythropoietin on dialysis Subjective Date of service: 11/17/18 Principal diagnosis: end-stage renal disease with line sepsis Interval history: Patient seen lying in bed. He is lethargic. Responds to tactile stimuli but only making incomprehensible sounds. is still at bedside Objective - Exam Narrative Exam: Elderly -[place] male lying in bed in no acute distress HEENT: NCAT, pink oral mucous membrane Neck: Supple, no venous distention CVS: S1S2 RRR with no murmur, rub or gallop Chest: Clear to auscultation Abdomen: Protuberant, soft, nontender, no organomegaly, bowel sounds are present Extremities: No edema, no clubbing Skin no rash Neuro: Lethargic, opens eyes spontaneously, making incomprehensible sounds, not following commands - Vital Signs Vital signs: Vital Signs - 12hr 11/17/18 11/17/18 11/17/18 09:00 09:30 09:45 Temperature 98.0 F Pulse Rate 80 96 H 100 H Pulse Rate [ From Monitor] Respiratory 18 Rate Blood Pressure 92/45 114/61 O2 Sat by Pulse Oximetry 11/17/18 11/17/18 11/17/18 10:00 10:15 10:20 Temperature Pulse Rate 100 H 83 Pulse Rate [ 80 From Monitor] Respiratory 20 Rate Blood Pressure 94/57 94/49 O2 Sat by Pulse 93 96 Oximetry 11/17/18 11/17/18 11/17/18 10:30 10:45 11:00 Temperature Pulse Rate 111 H 97 H 101 H Pulse Rate [ From Monitor] Respiratory Rate Blood Pressure 95/52 95/61 96/50 O2 Sat by Pulse Oximetry 11/17/18 11/17/18 11/17/18 11:15 11:30 11:45 Temperature Pulse Rate 98 H 114 H 106 H Pulse Rate [ From Monitor] Respiratory Rate Blood Pressure 136/66 98/54 98/46 O2 Sat by Pulse Oximetry 11/17/18 11/17/18 11/17/18 12:00 12:15 12:30 Temperature Pulse Rate 107 H 112 H 116 H Pulse Rate [ From Monitor] Respiratory Rate Blood Pressure 95/52 105/51 96/46 O2 Sat by Pulse Oximetry 11/17/18 11/17/18 11/17/18 12:45 15:05 18:39 Temperature 98.2 F 97.9 F Pulse Rate 101 H 107 H 136 H Pulse Rate [ From Monitor] Respiratory 18 20 Rate Blood Pressure 131/80 112/51 O2 Sat by Pulse 97 Oximetry - Lab 11/17/18 06:09 11/17/18 06:09 Most recent lab results Calcium 9.6 mg/dL (8.4-10.2) 11/17/18 06:09 Phosphorus 3.70 mg/dL (2.5-4.5) 11/11/18 23:15 Medications & Allergies - Medications Allergies/Adverse Reactions: Allergies No Known Allergies Allergy (Verified 08/27/18 16:19) Home Medications: Home Medications Medication Instructions Recorded Confirmed Last Taken Type Ferrous Sulfate [Iron Supplement 150 mg PO BID 07/31/13 11/14/18 07/14/18 Hi story 325 Mg tab] [place]-3S/Dha/Epa/Fish Oil/D3 [Fish 1 each PO DAILY 07/31/13 11/14/18 09/02/18 05:20 History [id number]-Vit D Softgel] amLODIPine [Norvasc] 10 mg PO DAILY 07/31/13 11/14/18 09/02/18 05:20 History cloNIDine [Catapres] 0.2 mg PO BID 07/31/13 11/14/18 09/02/18 05:20 History Carvedilol [Coreg] 6.25 mg PO BID 05/22/18 11/14/18 09/02/18 05:20 History Ergocalciferol (Vitamin D2) 2,000 unit PO DAILY 05/22/18 11/14/18 09/02/18 05:20 History [Vitamin D2] HYDROcodone/APAP 5-325 [[place] 1 each PO Q6HR PRN #25 tablet 09/02/18 11/14/18 Unknown Rx 5-325 mg TAB] Active Medications: Generic Name Dose Route Start Last Admin Trade Name Freq PRN Reason Stop Dose Admin Acetaminophen 650 mg 11/11/18 23:03 11/16/18 08:10 Tylenol SD 650 mg Q4H PRN Administration Pain, Mild (1-3) Epoetin Jeramy 10,000 unit 11/16/18 10:00 Procrit SUB-Q TuThSa ISABELLA Epoetin Jeramy 10,000 unit 11/17/18 12:46 Procrit IV Tu[facility] Sodium Chloride 100 mls @ 999 mls/hr 11/13/18 13:19 Nacl 0.9% IV SISSY PRN Hypotension Metronidazole 500 mg in 100 mls @ 100 mls/hr 11/16/18 17:00 11/17/18 15:10 Flagyl 500 Mg/100 Ml IV 100 mls/hr Q8HR ISABELLA Administration Protocol Cefepime HCl 1 gm in 100 mls @ 200 mls/hr 11/16/18 18:00 11/17/18 17:16 Maxipime/Ns 1 Gm/100 Ml IV 200 mls/hr QPM ISABELLA Administration Protocol Ondansetron HCl 4 mg 11/11/18 22:59 11/13/18 01:31 Zofran IV 4 mg Q4H PRN Administration Nausea And Vomiting Oxycodone/Acetaminophen 1 tab 11/16/18 16:10 11/16/18 16:33 Percocet 5/325 PO 1 tab Q6H PRN Administration Pain, Moderate (4-6) Sodium Chloride 10 ml 11/12/18 10:00 11/17/18 15:51 Sodium Chloride Flush Syringe 10 Ml IV 10 ml BID ISABELAL Administration Sodium Chloride 10 ml 11/11/18 22:59 Sodium Chloride Flush Syringe 10 Ml IV PRN PRN LINE FLUSH
[2018-11-17] MEDS: EPOETIN ALFA 20,000 UNIT/1 ML INJ SUB-Q SCH ×2 (21:13→21:14)
[2018-11-17] MEDS: EPOETIN ALFA 10,000 UNIT/1 ML INJ IV SCH (21:15)
[2018-11-18] MEDS: metroNIDAZOLE/NS 500 MG/100 ML 500 MG/100 ML BAG IV SCH ×3 (05:32→21:22)
[2018-11-18] MEDS: ACETAMINOPHEN 650 MG RECT SUPP PR PRN (08:17)
--- NOTE | 2018-11-18 10:40 | Progress Note ---
Assessment and Plan - Patient Problems (1) Sepsis due to infected central venous catheter Current Visit: Yes Status: Acute Plan to address problem: Continue antibiotics. Repeat blood cultures negative from November 15. Continue to Follow-up cultures (2) End stage renal disease Current Visit: Yes Status: Acute Plan to address problem: Hemodialysis daily for 3 days given the elevated BUNs/creatinine. (3) Altered mental status Current Visit: Yes Status: Acute Plan to address problem: CT head was negative. Concerned about septic emboli to the brain. BUN is also quite high and with ongoing infection raises the possibility of toxic/metabolic encephalopathy. Hemodialysis daily for 3 days. If mental status still not improving after dialysis tomorrow, consider MRI of the brain (4) Hyperkalemia Current Visit: Yes Status: Acute Plan to address problem: Potassium was again high today. Follow-up after dialysis 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 chronic kidney disease or end stage renal disease Current Visit: Yes Status: Chronic Plan to address problem: Follow-up blood pressure on current medications (6) Anemia in CKD (chronic kidney disease) Current Visit: No Status: Acute Qualifiers: Chronic kidney disease stage: stage 5, not on chronic dialysis Qualified Code(s): N18.5 - Chronic kidney disease, stage 5; D63.1 - Anemia in chronic kidney disease Plan to address problem: Give erythropoietin on dialysis Subjective Date of service: 11/18/18 Principal diagnosis: end-stage renal disease with line sepsis Interval history: Patient seen lying in bed on dialysis. He is a bit more responsive. Answers simple questions but his voice is very weak and barely audible. Objective - Exam Narrative Exam: Elderly -Citizen Of [place] male lying in bed in no acute distress HEENT: NCAT, pink oral mucous membrane Neck: Supple, no venous distention CVS: S1S2 RRR with no murmur, rub or gallop Chest: Clear to auscultation Abdomen: Protuberant, soft, nontender, no organomegaly, bowel sounds are present Extremities: No edema, no clubbing Skin no rash Neuro: Answer simple questions but voice very weak - Vital Signs Vital signs: Vital Signs - 12hr 11/18/18 11/18/18 11/18/18 02:00 02:22 06:00 Temperature 97.2 F L Pulse Rate 108 H 107 H 107 H Pulse Rate [ From Monitor] Respiratory 18 Rate Blood Pressure 102/44 O2 Sat by Pulse 95 Oximetry 11/18/18 11/18/18 11/18/18 07:38 07:45 10:00 Temperature 100.8 F H Pulse Rate 108 H 104 H Pulse Rate [ 104 H From Monitor] Respiratory 20 20 Rate Blood Pressure 123/53 O2 Sat by Pulse 89 95 92 Oximetry - Lab 11/17/18 06:09 11/17/18 06:09 Most recent lab results Calcium 9.6 mg/dL (8.4-10.2) 11/17/18 06:09 Phosphorus 3.70 mg/dL (2.5-4.5) 11/11/18 23:15 Medications & Allergies - Medications Allergies/Adverse Reactions: Allergies No Known Allergies Allergy (Verified 08/27/18 16:19) Home Medications: Home Medications Medication Instructions Recorded Confirmed Last Taken Type Ferrous Sulfate [Iron Supplement 150 mg PO BID 07/31/13 11/14/18 07/14/18 History 325 Mg tab] [place]-3S/Dha/Epa/Fish Oil/D3 [Fish 1 each PO DAILY 07/31/13 11/14/18 09/02/18 05:20 History [place]s-Gnakk-5-Vit D Softgel] amLODIPine [Norvasc] 10 mg PO DAILY 07/31/13 11/14/18 09/02/18 05:20 History cloNIDine [Catapres] 0.2 mg PO BID 07/31/13 11/14/18 09/02/18 05:20 History Carvedilol [Coreg] 6.25 mg PO BID 05/22/18 11/14/18 09/02/18 05:20 History Ergocalciferol (Vitamin D2) 2,000 unit PO DAILY 05/22/18 11/14/18 09/02/18 05:20 History [Vitamin D2] HYDROcodone/APAP 5-325 [[place] 1 each PO Q6HR PRN #25 tablet 09/02/18 11/14/18 Unknown Rx 5-325 mg TAB] Active Medications: Generic Name Dose Route Start Last Admin Trade Name Freq PRN Reason Stop Dose Admin Acetaminophen 650 mg 11/11/18 23:03 11/18/18 08:17 Tylenol [place] 650 mg Q4H PRN Administration Pain, Mild (1-3) Epoetin Jeramy 10,000 unit 11/16/18 10:00 11/17/18 21:14 Procrit SUB-Q Not Given [facility] Epoetin Jeramy 10,000 unit 11/17/18 12:46 11/17/18 21:15 Procrit IV Not Given [facility] Sodium Chloride 100 mls @ 999 mls/hr 11/13/18 13:19 Nacl 0.9% IV SISSY PRN Hypotension Metronidazole 500 mg in 100 mls @ 100 mls/hr 11/16/18 17:00 11/18/18 05:32 Flagyl 500 Mg/100 Ml IV 100 mls/hr Q8HR [facility] Administration Protocol Cefepime HCl 1 gm in 100 mls @ 200 mls/hr 11/16/18 18:00 11/17/18 17:16 Maxipime/Ns 1 Gm/100 Ml IV 200 mls/hr QPM [facility] Administration Protocol Ondansetron HCl 4 mg 11/11/18 22:59 11/13/18 01:31 Zofran IV 4 mg Q4H PRN Administration Nausea And Vomiting Oxycodone/Acetaminophen 1 tab 11/16/18 16:10 11/16/18 16:33 Percocet 5/325 PO 1 tab Q6H PRN Administration Pain, Moderate (4-6) Sodium Chloride 10 ml 11/12/18 10:00 11/18/18 09:03 Sodium Chloride Flush Syringe 10 Ml IV 10 ml BID ISABELLA Administration Sodium Chloride 10 ml 11/11/18 22:59 Sodium Chloride Flush Syringe 10 Ml IV PRN PRN LINE FLUSH
[2018-11-18] MEDS: EPOETIN ALFA 10,000 UNIT/1 ML INJ IV SCH (12:30)
[2018-11-18] MEDS ORDERED: SODIUM CHLORIDE*PRIMING MACHINE ONLY FOR DIALYSIS MC ONE (13:11)
--- NOTE | 2018-11-18 13:32 | Progress Note ---
Assessment and Plan Cultures: 11/12/2018 wound culture: MSSA 11/12/2018 vas cath culture: MSSA 11/12/2018 blood culture: MSSA 11/15/2018 blood culture: no growth Assessment: 73 yo M PMHx HTN, ESRD on HD, hyperparathyroidism, OA admitted with renal failure and a vascular catheter infection. 1. MSSA bacteremia secondary to Vascular catheter infection: catheter removed already. Repeat blood cultures from 11/15/2018 negative. Got new HD cath placed. TTE unremarkable for any vegetations. 2. Pneumonia - vs fluid overload. On empiric abx. 3. ESRD on HD - renally dose antibiotics. Nephrology following. 4. HTN 5. Hyperparathyroidism. 6. Acute encephalopathy: CT head unremarkable. Etiology unclear, ? consider MRI brain. Recs: ?consider MRI brain given poor mental status continue renally adjusted IV Cefepime, Flagyl and Vancomycin for now anticipate 4 weeks of post HD Cefazolin upon discharge at the dialysis center CBC ordered for AM Belinda Braun MD, FACP [facility] ([facility] C: [phone] O: [phone] F: [phone] Subjective Date of service: 11/18/18 Principal diagnosis: end-stage renal disease with line sepsis Interval history: Patient was seen at dialysis. Low grade temp. Still drowsy. Objective - Exam Narrative Exam: Physical Exam: Constitutional: drowsy, non verbal Head, Ears, Nose: Normocephalic, atraumatic. External ears, nose normal Eyes: Conjunctivae/corneas clear. No icterus. No ptosis. Neck: Supple, no meningeal signs Cardiovascular: S1, S2 normal. Respiratory: Good air entry, clear to auscultation bilaterally GI: Soft, non-tender; bowel sounds normal. No peritoneal signs Musculoskeletal: No pedal edema, no cyanosis. R femoral HD cath +. R subclavian dressing + Skin: No rash or abscess Hem/Lymphatic: No palpable cervical or supraclavicular nodes. No lymphangitis Psych: drowsy Neurological: drowsy, non verbal - Constitutional Vitals: Vital Signs Temp Pulse Resp BP Pulse Ox 100.8 F H 104 H 20 123/53 92 11/18/18 07:38 11/18/18 10:00 11/18/18 10:00 11/18/18 07:38 11/18/18 10:00 Temperature -Last 24 Hours Temperature 100.8 F Temperature 97.2 F Temperature 99.1 F Temperature 97.9 F - Labs CBC & Chem 7: 11/17/18 06:09 11/17/18 06:09 Labs: Abnormal lab results 11/17/18 Range/Units 06:09 Vitamin B12 > 2000 H (211-911) pg/mL
[2018-11-18 15:43] LABS: Calcium 9.4 mg/dL (8.4-10.2)
[2018-11-18] MEDS: CEFEPIME/NS 1 GM/100 ML 1 GM/100 ML BAG IV SCH (17:25)
--- NOTE | 2018-11-18 18:38 | Progress Note ---
Assessment and Plan - Patient Problems (1) HTN (hypertension) Current Visit: Yes Status: Acute (2) HTN (hypertension), malignant Current Visit: Yes Status: Acute Plan to address problem: Patient currently is not requiring any medications for blood pressure. (3) Altered mental status Current Visit: Yes Status: Acute Plan to address problem: Altered mental status secondary to metabolic encephalopathy. Multifactorial sepsis as well as uremia. Patient somewhat improved. Fever curve downtrending. Patient does still have some leukocytosis. Patient currently on cefepime and Flagyl and vancomycin. Underlying etiology of infection line sepsis. (4) CKD (chronic kidney disease) requiring chronic dialysis Current Visit: Yes Status: Acute Plan to address problem: Patient with significant uremia. Receiving hemodialysis daily for now. Being followed by nephrology. (5) Sepsis due to infected central venous catheter Current Visit: Yes Status: Acute Plan to address problem: He shouldn't infection sepsis secondary to line infection. Previously been changed. Currently on antibiotics as mentioned above. We'll follow culture data. (6) Weakness Current Visit: Yes Status: Acute Plan to address problem: Generalized weakness multifactorial. End-stage renal disease and infection. History Interval history: Spoke with daughter at bedside she states patient is somewhat better than yesterday. Patient however to me remains very encephalopathic. Patient can hear you and attempt to respond yesterday according to the daughter he could not do that. Hospitalist Physical - Constitutional Vitals: Temp Pulse Resp BP Pulse Ox 99.8 F H 81 20 106/45 100 11/18/18 13:39 11/18/18 13:39 11/18/18 13:39 11/18/18 13:39 11/18/18 13:39 General appearance: Present: mild distress, well-nourished - EENT ENT: hearing intact, poor dentition, no thrush, no ulcerations - Neck Neck: Present: supple, normal ROM - Respiratory Respiratory: bilateral: diminished, rhonchi - Cardiovascular Heart rate: 99 Rhythm: regular - Extremities Extremities: no ischemia, pulses symmetrical, abnormal Extremity abnormal: edema Peripheral Pulses: within normal limits - Abdominal General gastrointestinal: soft, non-tender, non-distended, hypoactive bowel so unds - Psychiatric Psychiatric: other (encephalopathy) Results - Labs CBC & Chem 7: 11/17/18 06:09 11/18/18 15:15 Labs: Laboratory Last Values WBC 15.8 K/mm3 (4.5-11.0) H 11/17/18 06:09 RBC 3.17 M/mm3 (3.65-5.03) L 11/17/18 06:09 Hgb 9.1 gm/dl (11.8-15.2) L 11/17/18 06:09 Hct 26.5 % (35.5-45.6) L 11/17/18 06:09 MCV 84 fl (84-94) 11/17/18 06:09 MCH 29 pg (28-32) 11/17/18 06:09 MCHC 34 % (32-34) 11/17/18 06:09 RDW 15.6 % (13.2-15.2) H 11/17/18 06:09 Plt Count 82 K/mm3 (140-440) L 11/17/18 06:09 Lymph % (Auto) [employer] 11/11/18 19:14 [place] % (Auto) [employer] 11/13/18 07:29 Eos % (Auto) [employer] 11/11/18 19:14 Baso % (Auto) [employer] 11/11/18 19:14 Lymph # [employer] 11/11/18 19:14 [place] # [employer] 11/11/18 19:14 Eos # Fine [employer] Instructor 11/11/18 19:14 Baso # [employer] 11/11/18 19:14 Add Manual Diff Complete 11/17/18 06:09 Total Counted 100 11/17/18 06:09 Seg Neutrophils % [employer] 11/11/18 19:14 Seg Neuts % (Manual) 83.0 % (40.0-70.0) H 11/17/18 06:09 3.0 % 11/17/18 06:09 7.0 % (13.4-35.0) L 11/17/18 06:09 Reactive Lymphs % (Man) 0 % 11/17/18 06:09 4.0 % (0.0-7.3) 11/17/18 06:09 0 % (0.0-4.3) 11/17/18 06:09 0 % (0.0-1.8) 11/17/18 06:09 3.0 % 11/17/18 06:09 0 % 11/17/18 06:09 0 % 11/17/18 06:09 0 % 11/17/18 06:09 Nucleated RBC % Not Reportable 11/17/18 06:09 Seg Neutrophils # [employer] 11/11/18 19:14 Seg Neutrophils # Man 13.1 K/mm3 (1.8-7.7) H 11/17/18 06:09 Band Neutrophils # 0.5 K/mm3 11/17/18 06:09 1.1 K/mm3 (1.2-5.4) L 11/17/18 06:09 Abs React Lymphs (Man) 0.0 K/mm3 11/17/18 06:09 0.6 K/mm3 (0.0-0.8) 11/17/18 06:09 0.0 K/mm3 (0.0-0.4) 11/17/18 06:09 0.0 K/mm3 (0.0-0.1) 11/17/18 06:09 0.5 K/mm3 11/17/18 06:09 0.0 K/mm3 11/17/18 06:09 0.0 K/mm3 11/17/18 06:09 Blast Cells # 0.0 K/mm3 11/17/18 06:09 WBC Morphology Not Reportable 11/17/18 06:09 Hypersegmented Neuts Not Reportable 11/17/18 06:09 Hyposegmented Neuts Not Reportable 11/17/18 06:09 Hypogranular Neuts Not Reportable 11/17/18 06:09 Not Reportable 11/17/18 06:09 Not Reportable 11/17/18 06:09 Not Reportable 11/17/18 06:09 Not Reportable 11/17/18 06:09 Not Reportable 11/17/18 06:09 Not Reportable 11/17/18 06:09 Consistent w auto 11/17/18 06:09 Not Reportable 11/17/18 06:09 Plt Clumps, EDTA Not Reportable 11/17/18 06:09 Few 11/17/18 06:09 Not Reportable 11/17/18 06:09 Not Reportable 11/17/18 06:09 Plt Morphology Comment Not Reportable 11/17/18 06:09 RBC Morphology Not Reportable 11/17/18 06:09 Dimorphic RBCs Not Reportable 11/17/18 06:09 Few 11/17/18 06:09 Few 11/17/18 06:09 Not Reportable 11/17/18 06:09 Not Reportable 11/17/18 06:09 Not Reportable 11/17/18 06:09 Not Reportable 11/17/18 06:09 Not Reportable 11/17/18 06:09 Not Reportable 11/17/18 06:09 Not Reportable 11/17/18 06:09 1+ 11/17/18 06:09 Few 11/17/18 06:09 Not Reportable 11/17/18 06:09 Not Reportable 11/17/18 06:09 Not Reportable 11/17/18 06:09 Not Reportable 11/17/18 06:09 Not Reportable 11/17/18 06:09 Not Reportable 11/17/18 06:09 Not Reportable 11/17/18 06:09 Not Reportable 11/17/18 06:09 Acanthocytes (Spur) Not Reportable 11/17/18 06:09 Rouleaux Not Reportable 11/17/18 06:09 Not Reportable 11/17/18 06:09 Not Reportable 11/17/18 06:09 Not Reportable 11/17/18 06:09 Not Reportable 11/17/18 06:09 Hem Pathologist Commnt No 11/17/18 06:09 Sodium 138 mmol/L (137-145) 11/18/18 15:15 Potassium 4.1 mmol/L (3.6-5.0) D 11/18/18 15:15 Chloride 95.8 mmol/L (98-107) L 11/18/18 15:15 Carbon Dioxide 26 mmol/L (22-30) D 11/18/18 15:15 20 mmol/L 11/18/18 15:15 BUN 33 mg/dL (9-20) H 11/18/18 15:15 3.0 mg/dL (0.8-1.5) H D 11/18/18 15:15 Estimated GFR 25 ml/min 11/18/18 15:15 11 % 11/18/18 15:15 Glucose 191 mg/dL (75-100) H 11/18/18 15:15 POC Glucose 134 (70-105) H 11/17/18 06:11 Lactic Acid 2.00 mmol/L (0.7-2.0) 11/11/18 17:45 Calcium 9.4 mg/dL (8.4-10.2) 11/18/18 15:15 Phosphorus 3.70 mg/dL (2.5-4.5) 11/11/18 23:15 0.80 mg/dL (0.1-1.2) 11/11/18 17:45 AST 35 units/L (5-40) 11/11/18 17:45 ALT 12 units/L (7-56) 11/11/18 17:45 88 units/L (35-129) 11/11/18 17:45 68.0 umol/L (25-60) H 11/17/18 11:41 363 units/L (55-170) H 11/12/18 03:33 CK-MB (CK-2) 4.0 ng/mL (0.0-4.0) 11/12/18 03:33 CK-MB (CK-2) Rel Index 1.1 (0-4) 11/12/18 03:33 0.274 ng/mL (0.00-0.029) H* 11/12/18 03:33 8.0 g/dL (6.3-8.2) 11/11/18 17:45 3.1 g/dL (3.9-5) L 11/11/18 17:45 0.6 % 11/11/18 17:45 Triglycerides 380 mg/dL (2-149) H 11/11/18 17:45 Cholesterol 117 mg/dL (50-199) 11/11/18 17:45 8 mg/dL (50-130) L 11/11/18 17:45 8 mg/dL (40-59) L 11/11/18 17:45 14.62 % 11/11/18 17:45 Vitamin B12 > 2000 pg/mL (211-911) H 11/17/18 06:09 > 20 ng/mL (7.3-26.0) 11/17/18 06:09 Random Vancomycin 24.5 ug/mL (0-40.0) 11/17/18 06:09 Hepatitis A IgM Ab Non-reactive (NonReactive) 11/12/18 10:01 Hep Bs Antigen Non-reactive (Negative) 11/12/18 10:01 Hep B Core IgM Ab Non-reactive (NonReactive) 11/12/18 10:01 Non-reactive (NonReactive) 11/12/18 10:01 Active Medications - Current Medications Current Medications: Generic Name Dose Route Start Last Admin Trade Name Freq PRN Reason Stop Dose Admin Acetaminophen 650 mg 11/11/18 23:03 11/18/18 08:17 Tylenol [place] 650 mg Q4H PRN Administration Pain, Mild (1-3) Epoetin Jeramy 10,000 unit 11/16/18 10:00 11/17/18 21:14 Procrit SUB-Q Not Given [facility] Epoetin Jeramy 10,000 unit 11/17/18 12:46 11/18/18 12:30 Procrit IV 10,000 unit [facility] Administration Sodium Chloride 100 mls @ 999 mls/hr 11/13/18 13:19 Nacl 0.9% IV SISSY PRN Hypotension Metronidazole 500 mg in 100 mls @ 100 mls/hr 11/16/18 17:00 11/18/18 13:50 Flagyl 500 Mg/100 Ml IV 100 mls/hr Q8HR ISABELLA Administration Protocol Cefepime HCl 1 gm in 100 mls @ 200 mls/hr 11/16/18 18:00 11/18/18 17:25 Maxipime/Ns 1 Gm/100 Ml IV 200 mls/hr QPM IS[facility]ELLA Administration Protocol Vancomycin HCl 1 gm in 250 mls @ 167.007 mls/hr 11/18/18 22:00 Vancomycin/Ns 1 Gm/250 Ml IV 11/18/18 23:29 ONCE ONE Ondansetron HCl 4 mg 11/11/18 22:59 11/13/18 01:31 Zofran IV 4 mg Q4H PRN Administration Nausea And Vomiting Oxycodone/Acetaminophen 1 tab 11/16/18 16:10 11/16/18 16:33 Percocet 5/325 PO 1 tab Q6H PRN Administration Pain, Moderate (4-6) Sodium Chloride 10 ml 11/12/18 10:00 11/18/18 09:03 Sodium Chloride Flush Syringe 10 Ml IV 10 ml BID ISABELLA Administration Sodium Chloride 10 ml 11/11/18 22:59 11/18/18 13:50 Sodium Chloride Flush Syringe 10 Ml IV 10 ml PRN PRN Administration LINE FLUSH Nutrition/Malnutrition Assess - Dietary Evaluation Nutrition/Malnutrition Findings: Nutrition Notes Start: 11/12/18 14:51 Freq: Status: Active Protocol: Document 11/18/18 10:02 AP (Rec: 11/18/18 13:20 AP [email or web address]) Co-Sign 11/18/18 10:02 LP Nutrition Notes Initial or Follow up Reassessment Current Diagnosis CKD (stage V CKD),Hypertension Other Pertinent Diagnosis ESRD on HD, Hyperparathyroidism, Dysphagia , Pneu Current Diet Renal diet Labs/Tests K 6.2 BUN 170 BG 134 Pertinent Medications Reviewed Height 5 ft 6 in Weight 73.5 kg [place] Body Weight (kg) 64.54 BMI 26.1 Subjective/Other Information Pt was not in room for reassessment, in HD. Observed pt tray, pt consumed all oatmel, no eggs or toast. Pt consumed 100% of [place]. Percent of energy/protein needs met: 100%/100% Burn Absent Trauma Absent Minimum of two criteria No #1 Nutrition Diagnosis Inadequate energy intake Etiology pt states lack of appetite As Evidenced by Signs and Symptoms Pt consuming 100% of PRO/kcal needs Diagnosis Progress(for reassessment Improved documentation) Is patient on ventilator? No Is Patient Ambulatory and/or Out of Bed No REE-([facility]-confined to bed) [phone] Additional Notes PRO needs: 88g(1.2g/kg) Fluid needs: 1-1.5L/day Nutrition Intervention Change Diet Order: Continue renal diet Continue ONS Add Supplement/Snack (indicate name/kcal [place] BID /protein ) Provides kCal: 850 Provides Protein (gm) 38 Goal #1 Meet at least 75% of energy and PRO needs via PO and ONS Anticipated Discharge Needs: Renal Diet and ONS BID Follow-Up By: 11/20/18 Additional Comments F/U for PO/ONS intakes
[2018-11-18] MEDS ORDERED: VANCOMYCIN/NS 1 GM/250 ML 1 GM/250 ML BAG IV ONE (22:00)
[2018-11-19] MEDS: metroNIDAZOLE/NS 500 MG/100 ML 500 MG/100 ML BAG IV SCH (05:48)
[2018-11-19 07:27] LABS: Hematocrit 24.9 % (35.5-45.6); Hemoglobin 8.6 gm/dl (11.8-15.2); Mean Corpuscular HGB Conc 34 % (32-34); Mean Corpuscular Volume 84 fl (84-94); Platelet Count 119 K/mm3 (140-440); Red Blood Count 2.97 M/mm3 (3.65-5.03); Red Cell Distribution Width 15.7 % (13.2-15.2)
[2018-11-19 07:48] LABS: Calcium 9.2 mg/dL (8.4-10.2)
--- NOTE | 2018-11-19 11:25 | Progress Note ---
Assessment and Plan - Patient Problems (1) Sepsis due to infected central venous catheter Current Visit: Yes Status: Acute Plan to address problem: Continue antibiotics. Repeat blood cultures negative from November 15. Continue to Follow-up cultures (2) End stage renal disease Current Visit: Yes Status: Acute Plan to address problem: Hemodialysis daily for 3 days. Today's day 3 and BUN/creatinine have improved. Next dialysis will be on (3) Altered mental status Current Visit: Yes Status: Acute Plan to address problem: CT head was negative. Concerned about septic emboli to the brain. Mental status is improving suggesting toxic/metabolic encephalopathy. (4) Hyperkalemia Current Visit: Yes Status: Acute Plan to address problem: Potassium has improved. 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 chronic kidney disease or end stage renal disease Current Visit: Yes Status: Chronic Plan to address problem: Follow-up blood pressure on current medications (6) Anemia in CKD (chronic kidney disease) Current Visit: No Status: Acute Qualifiers: Chronic kidney disease stage: stage 5, not on chronic dialysis Qualified Code(s): N18.5 - Chronic kidney disease, stage 5; D63.1 - Anemia in chronic kidney disease Plan to address problem: Give erythropoietin on dialysis Subjective Date of service: 11/19/18 Principal diagnosis: end-stage renal disease with line sepsis Interval history: Patient seen lying in bed on dialysis. He is more responsive. Answers simple questions and he is more audible today Objective - Exam Narrative Exam: Elderly -Citizen Of [place] male lying in bed in no acute distress HEENT: NCAT, pink oral mucous membrane Neck: Supple, no venous distention CVS: S1S2 RRR with no murmur, rub or gallop Chest: Clear to auscultation Abdomen: Protuberant, soft, nontender, no organomegaly, bowel sounds are present Extremities: No edema, no clubbing Skin no rash Neuro: Answer simple questions but voice very weak - Vital Signs Vital signs: Vital Signs - 12hr 11/19/18 11/19/18 11/19/18 02:25 07:59 10:00 Temperature 98.0 F 99.6 F Pulse Rate 114 H 101 H Pulse Rate [ 101 H From Monitor] Respiratory 20 20 20 Rate Blood Pressure 107/53 120/61 O2 Sat by Pulse 93 96 95 Oximetry - Lab 11/19/18 07:00 11/19/18 07:00 Most recent lab results Calcium 9.2 mg/dL (8.4-10.2) 11/19/18 07:00 Phosphorus 3.70 mg/dL (2.5-4.5) 11/11/18 23:15 Medications & Allergies - Medications Allergies/Adverse Reactions: Allergies No Known Allergies Allergy (Verified 08/27/18 16:19) Home Medications: Home Medications Medication Instructions Recorded Confirmed Last Taken Type Ferrous Sulfate [Iron Supplement 150 mg PO BID 07/31/13 11/14/18 07/14/18 History 325 Mg tab] [place]-3S/Dha/Epa/Fish Oil/D3 [Fish 1 each PO DAILY 07/31/13 11/14/18 09/02/18 05 :20 History Cjg-Eyqcz-5-Vit D Softgel] amLODIPine [Norvasc] 10 mg PO DAILY 07/31/13 11/14/18 09/02/18 05:20 History cloNIDine [Catapres] 0.2 mg PO BID 07/31/13 11/14/18 09/02/18 05:20 History Carvedilol [Coreg] 6.25 mg PO BID 05/22/18 11/14/18 09/02/18 05:20 History Ergocalciferol (Vitamin D2) 2,000 unit PO DAILY 05/22/18 11/14/18 09/02/18 05:20 History [Vitamin D2] HYDROcodone/APAP 5-325 [[place] 1 each PO Q6HR PRN #25 tablet 09/02/18 11/14/18 Unknown Rx 5-325 mg TAB] Active Medications: Generic Name Dose Route Start Last Admin Trade Name Kurtq PRN Reason Stop Dose Admin Acetaminophen 650 mg 11/11/18 23:03 11/18/18 08:17 Tylenol [place] 650 mg Q4H PRN Administration Pain, Mild (1-3) Epoetin Jeramy 10,000 unit 11/16/18 10:00 11/17/18 21:14 Procrit SUB-Q Not Given [facility] Epoetin Jeramy 10,000 unit 11/17/18 12:46 11/18/18 12:30 Procrit IV 10,000 unit [facility] Administration Sodium Chloride 100 mls @ 999 mls/hr 11/13/18 13:19 Nacl 0.9% IV SISSY PRN Hypotension Metronidazole 500 mg in 100 mls @ 100 mls/hr 11/16/18 17:00 11/19/18 05:48 Flagyl 500 Mg/100 Ml IV 100 mls/hr Q8HR IS[facility]A Administration Protocol Cefepime HCl 1 gm in 100 mls @ 200 mls/hr 11/16/18 18:00 11/18/18 17:25 Maxipime/Ns 1 Gm/100 Ml IV 200 mls/hr QPM [facility] Administration Protocol Ondansetron HCl 4 mg 11/11/18 22:59 11/13/18 01:31 Zofran IV 4 mg Q4H PRN Administration Nausea And Vomiting Oxycodone/Acetaminophen 1 tab 11/16/18 16:10 11/16/18 16:33 Percocet 5/325 PO 1 tab Q6H PRN Administration Pain, Moderate (4-6) Sodium Chloride 10 ml 11/12/18 10:00 11/19/18 09:04 Sodium Chloride Flush Syringe 10 Ml IV 10 ml BID ISABELLA Administration Sodium Chloride 10 ml 11/11/18 22:59 11/18/18 13:50 Sodium Chloride Flush Syringe 10 Ml IV 10 ml PRN PRN Administration LINE FLUSH
[2018-11-19] MEDS ORDERED: SODIUM CHLORIDE*PRIMING MACHINE ONLY FOR DIALYSIS MC ONE (12:11)
--- NOTE | 2018-11-19 13:14 | Progress Note ---
Assessment and Plan Cultures: 11/12/2018 wound culture: MSSA 11/12/2018 vas cath culture: MSSA 11/12/2018 blood culture: MSSA 11/15/2018 blood culture: no growth Assessment: 73 yo M PMHx HTN, ESRD on HD, hyperparathyroidism, OA admitted with vascular catheter infection. 1. MSSA bacteremia secondary to Vascular catheter infection: catheter removed. Repeat blood cultures from 11/15/2018 negative. Got new HD cath placed. TTE unremarkable for any vegetations. 2. Pneumonia - vs fluid overload. On empiric abx. 3. ESRD on HD - renally dose antibiotics. Nephrology following. 4. HTN 5. Hyperparathyroidism. 6. Acute encephalopathy: CT head unremarkable. Etiology unclear, ? consider MRI brain. Recs: mental status slightly improved but still encephalopathic ?consider MRI brain repeat blood cultures have remained negative, will switch Cefepime, Flagyl and Vancomycin to IV Cefazolin daily qPM anticipate 4 weeks of post HD Cefazolin upon discharge at the dialysis center recheck CBC, if remains persistently elevated, may have to consider additional imaging Belinda Braun MD, FACP [facility] C: [phone] O: [phone] F: [phone] Subjective Date of service: 11/19/18 Principal diagnosis: end-stage renal disease with line sepsis Interval history: Seen at dialysis. More awake than yesterday but remains encephalopathic. Poor historian. Objective - Exam Narrative Exam: Physical Exam: Constitutional: more awake but still confused Head, Ears, Nose: Normocephalic, atraumatic. External ears, nose normal Eyes: Conjunctivae/corneas clear. No icterus. No ptosis. Neck: Supple, no meningeal signs Cardiovascular: S1, S2 normal. Respiratory: Good air entry, clear to auscultation bilaterally GI: Soft, non-tender; bowel sounds normal. No peritoneal signs Musculoskeletal: No pedal edema, no cyanosis. left subclavian HD cath + Skin: No rash or abscess Hem/Lymphatic: No palpable cervical or supraclavicular nodes. No lymphangitis Psych: confused Neurological: more awake but still confused - Constitutional Vitals: Vital Signs Temp Pulse Resp BP Pulse Ox 99.6 F 101 H 20 120/61 95 11/19/18 07:59 11/19/18 10:00 11/19/18 10:00 11/19/18 07:59 11/19/18 10:00 Temperature -Last 24 Hours Temperature 99.6 F Temperature 98.0 F Temperature 99.8 F Temperature 98.2 F - Labs CBC & Chem 7: 11/19/18 07:00 11/19/18 07:00 Labs: Abnormal lab results 11/18/18 11/19/18 11/19/18 Range/Units 15:15 07:00 07:00 WBC 20.7 H (4.5-11.0) K/mm3 RBC 2.97 L (3.65-5.03) M/mm3 Hgb 8.6 L (11.8-15.2) gm/dl Hct 24.9 L (35.5-45.6) % RDW 15.7 H (13.2-15.2) % Plt Count 119 L (140-440) K/mm3 Chloride 95.8 L 97.6 L (98-107) mmol/L BUN 33 H 65 H (9-20) mg/dL Creatinine 3.0 H D 5.4 H D (0.8-1.5) mg/dL Glucose 191 H 135 H (75-100) mg/dL
[2018-11-19] MEDS ORDERED: NEOMY 3.5 MG/BACIT 400 UNITS/POLY B 5000 UNITS/GM OINT PACKET TP STA (13:24)
[2018-11-19] MEDS: EPOETIN ALFA 10,000 UNIT/1 ML INJ IV SCH (14:00)
[2018-11-19] MEDS: ceFAZolin/NS 1 GM/50 ML 1 GM/50 ML BAG IV SCH (17:15)
--- NOTE | 2018-11-19 20:20 | Progress Note ---
Assessment and Plan - Patient Problems (1) HTN (hypertension) Current Visit: Yes Status: Acute Plan to address problem: Swanson has optimal control blood pressure 114/80. (2) HTN (hypertension), malignant Current Visit: Yes Status: Acute Plan to address problem: Patient currently is not requiring any medications for blood pressure. (3) Altered mental status Current Visit: Yes Status: Acute (4) CKD (chronic kidney disease) requiring chronic dialysis Current Visit: Yes Status: Acute Plan to address problem: Patient with significant uremia. Receiving hemodialysis daily for now. Being followed by nephrology. (5) Sepsis due to infected central venous catheter Current Visit: Yes Status: Acute Plan to address problem: Patient remains encephalopathic has had extensive workup. Only MRSA infection. We'll obtain MRI of the brain. (6) Weakness Current Visit: Yes Status: Acute Plan to address problem: Generalized weakness multifactorial. End-stage renal disease and infection. History Interval history: Patient remains to follow pathic but he is better clinically. He is able to respond. Family at bedside agrees Hospitalist Physical - Constitutional Vitals: Temp Pulse Resp BP Pulse Ox 98.9 F 115 H 20 114/47 96 11/19/18 18:00 11/19/18 18:00 11/19/18 18:00 11/19/18 18:00 11/19/18 18:00 General appearance: Present: no acute distress, well-nourished - EENT Eyes: Present: PERRL, EOM intact ENT: hearing intact, clear oral mucosa, dentition normal - Neck Neck: Present: supple, normal ROM - Respiratory Respiratory: bilateral: diminished - Cardiovascular Rhythm: regular - Extremities Extremities: no ischemia, pulses intact, pulses symmetrical Peripheral Pulses: within normal limits - Abdominal General gastrointestinal: soft, non-tender, non-distended - Integumentary Integumentary: Present: clear, warm, dry - Psychiatric Psychiatric: other (agitated at times encephalopathic.) - Neurologic Neurologic: moves all extremities Results - Labs CBC & Chem 7: 11/19/18 07:00 11/19/18 07:00 Labs: Laboratory Last Values WBC 20.7 K/mm3 (4.5-11.0) H 11/19/18 07:00 RBC 2.97 M/mm3 (3.65-5.03) L 11/19/18 07:00 Hgb 8.6 gm/dl (11.8-15.2) L 11/19/18 07:00 Hct 24.9 % (35.5-45.6) L 11/19/18 07:00 MCV 84 fl (84-94) 11/19/18 07:00 MCH 29 pg (28-32) 11/19/18 07:00 MCHC 34 % (32-34) 11/19/18 07:00 RDW 15.7 % (13.2-15.2) H 11/19/18 07:00 Plt Count 119 K/mm3 (140-440) L 11/19/18 07:00 Lymph % (Auto) [facility] 11/11/18 19:14 Bureau % (Auto) [facility]idence [facility] Director 11/13/18 07:29 Eos % (Auto) [facility] Director 11/11/18 19:14 Baso % (Auto) [facility] Director 11/11/18 19:14 Lymph # [facility] 11/11/18 19:14 Bureau # [facility] Director 11/11/18 19:14 Eos # [facility] Director 11/11/18 19:14 Baso # [facility] 11/11/18 19:14 Add Manual Diff Complete 11/17/18 06:09 Total Counted 100 11/17/18 06:09 Seg Neutrophils % [facility] 11/11/18 19:14 Seg Neuts % (Manual) 83.0 % (40.0-70.0) H 11/17/18 06:09 3.0 % 11/17/18 06:09 7.0 % (13.4-35.0) L 11/17/18 06:09 Reactive Lymphs % (Man) 0 % 11/17/18 06:09 4.0 % (0.0-7.3) 11/17/18 06:09 0 % (0.0-4.3) 11/17/18 06:09 0 % (0.0-1.8) 11/17/18 06:09 3.0 % 11/17/18 06:09 0 % 11/17/18 06:09 0 % 11/17/18 06:09 0 % 11/17/18 06:09 Nucleated RBC % Not Reportable 11/17/18 06:09 Seg Neutrophils # [facility]idence [facility] Director 11/11/18 19:14 Seg Neutrophils # Man 13.1 K/mm3 (1.8-7.7) H 11/17/18 06:09 Band Neutrophils # 0.5 K/mm3 11/17/18 06:09 1.1 K/mm3 (1.2-5.4) L 11/17/18 06:09 Abs React Lymphs (Man) 0.0 K/mm3 11/17/18 06:09 0.6 K/mm3 (0.0-0.8) 11/17/18 06:09 0.0 K/mm3 (0.0-0.4) 11/17/18 06:09 0.0 K/mm3 (0.0-0.1) 11/17/18 06:09 0.5 K/mm3 11/17/18 06:09 0.0 K/mm3 11/17/18 06:09 0.0 K/mm3 11/17/18 06:09 Blast Cells # 0.0 K/mm3 11/17/18 06:09 WBC Morphology Not Reportable 11/17/18 06:09 Hypersegmented Neuts Not Reportable 11/17/18 06:09 Hyposegmented Neuts Not Reportable 11/17/18 06:09 Hypogranular Neuts Not Reportable 11/17/18 06:09 Not Reportable 11/17/18 06:09 Not Reportable 11/17/18 06:09 Not Reportable 11/17/18 06:09 Not Reportable 11/17/18 06:09 Not Reportable 11/17/18 06:09 Not Reportable 11/17/18 06:09 Consistent w auto 11/17/18 06:09 Not Reportable 11/17/18 06:09 Plt Clumps, EDTA Not Reportable 11/17/18 06:09 Few 11/17/18 06:09 Not Reportable 11/17/18 06:09 Not Reportable 11/17/18 06:09 Plt Morphology Comment Not Reportable 11/17/18 06:09 RBC Morphology Not Reportable 11/17/18 06:09 Dimorphic RBCs Not Reportable 11/17/18 06:09 Few 11/17/18 06:09 Few 11/17/18 06:09 Not Reportable 11/17/18 06:09 Not Reportable 11/17/18 06:09 Not Reportable 11/17/18 06:09 Not Reportable 11/17/18 06:09 Not Reportable 11/17/18 06:09 Not Reportable 11/17/18 06:09 Not Reportable 11/17/18 06:09 1+ 11/17/18 06:09 Few 11/17/18 06:09 Not Reportable 11/17/18 06:09 Not Reportable 11/17/18 06:09 Not Reportable 11/17/18 06:09 Not Reportable 11/17/18 06:09 Not Reportable 11/17/18 06:09 Not Reportable 11/17/18 06:09 Not Reportable 11/17/18 06:09 Not Reportable 11/17/18 06:09 Acanthocytes (Spur) Not Reportable 11/17/18 06:09 Rouleaux Not Reportable 11/17/18 06:09 Not Reportable 11/17/18 06:09 Not Reportable 11/17/18 06:09 Not Reportable 11/17/18 06:09 Not Reportable 11/17/18 06:09 Hem Pathologist Commnt No 11/17/18 06:09 Sodium 138 mmol/L (137-145) 11/19/18 07:00 Potassium 4.9 mmol/L (3.6-5.0) 11/19/18 07:00 Chloride 97.6 mmol/L (98-107) L 11/19/18 07:00 Carbon Dioxide 25 mmol/L (22-30) 11/19/18 07:00 20 mmol/L 11/19/18 07:00 BUN 65 mg/dL (9-20) H 11/19/18 07:00 5.4 mg/dL (0.8-1.5) H D 11/19/18 07:00 Estimated GFR 13 ml/min 11/19/18 07:00 12 % 11/19/18 07:00 Glucose 135 mg/dL (75-100) H 11/19/18 07:00 POC Glucose 134 (70-105) H 11/17/18 06:11 Lactic Acid 2.00 mmol/L (0.7-2.0) 11/11/18 17:45 Calcium 9.2 mg/dL (8.4-10.2) 11/19/18 07:00 Phosphorus 3.70 mg/dL (2.5-4.5) 11/11/18 23:15 0.80 mg/dL (0.1-1.2) 11/11/18 17:45 AST 35 units/L (5-40) 11/11/18 17:45 ALT 12 units/L (7-56) 11/11/18 17:45 88 units/L (35-129) 11/11/18 17:45 68.0 umol/L (25-60) H 11/17/18 11:41 363 units/L (55-170) H 11/12/18 03:33 CK-MB (CK-2) 4.0 ng/mL (0.0-4.0) 11/12/18 03:33 CK-MB (CK-2) Rel Index 1.1 (0-4) 11/12/18 03:33 0.274 ng/mL (0.00-0.029) H* 11/12/18 03:33 8.0 g/dL (6.3-8.2) 11/11/18 17:45 3.1 g/dL (3.9-5) L 11/11/18 17:45 0.6 % 11/11/18 17:45 Triglycerides 380 mg/dL (2-149) H 11/11/18 17:45 Cholesterol 117 mg/dL (50-199) 11/11/18 17:45 8 mg/dL (50-130) L 11/11/18 17:45 8 mg/dL (40-59) L 11/11/18 17:45 14.62 % 11/11/18 17:45 Vitamin B12 > 2000 pg/mL (211-911) H 11/17/18 06:09 > 20 ng/mL (7.3-26.0) 11/17/18 06:09 Random Vancomycin 24.5 ug/mL (0-40.0) 11/17/18 06:09 Hepatitis A IgM Ab Non-reactive (NonReactive) 11/12/18 10:01 Hep Bs Antigen Non-reactive (Negative) 11/12/18 10:01 Hep B Core IgM Ab Non-reactive (NonReactive) 11/12/18 10:01 Non-reactive (NonReactive) 11/12/18 10:01 Active Medications - Current Medications Current Medications: Generic Name Dose Route Start Last Admin Trade Name Freq PRN Reason Stop Dose Admin Acetaminophen 650 mg 11/11/18 23:03 11/18/18 08:17 Tylenol AL 650 mg Q4H PRN Administration Pain, Mild (1-3) Epoetin Jeramy 10,000 unit 11/17/18 12:46 11/19/18 14:00 Procrit IV 10,000 unit TuThSa ISABELLA Administration Sodium Chloride 100 mls @ 999 mls/hr 11/13/18 13:19 Nacl 0.9% IV SISSY PRN Hypotension Cefazolin Sodium 1 gm in 50 mls @ 100 mls/hr 11/19/18 18:00 11/19/18 17:15 Ancef/Ns 1 Gm/50 Ml IV 100 mls/hr QPM ISABELLA Administration Protocol Ondansetron HCl 4 mg 11/11/18 22:59 11/13/18 01:31 Zofran IV 4 mg Q4H PRN Administration Nausea And Vomiting Oxycodone/Acetaminophen 1 tab 11/16/18 16:10 11/16/18 16:33 Percocet 5/325 PO 1 tab Q6H PRN Administration Pain, Moderate (4-6) Sodium Chloride 10 ml 11/12/18 10:00 11/19/18 09:04 Sodium Chloride Flush Syringe 10 Ml IV 10 ml BID ISABELLA Administration Sodium Chloride 10 ml 11/11/18 22:59 11/18/18 13:50 Sodium Chloride Flush Syringe 10 Ml IV 10 ml PRN PRN Administration LINE FLUSH Nutrition/Malnutrition Assess - Dietary Evaluation Nutrition/Malnutrition Findings: Nutrition Notes Start: 11/12/18 14:51 Freq: Status: Active Protocol: Document 11/18/18 10:02 AP (Rec: 11/18/18 13:20 AP [email or web address]) Co-Sign 11/18/18 10:02 LP Nutrition Notes Initial or Follow up Reassessment Current Diagnosis CKD (stage V CKD),Hypertension Other Pertinent Diagnosis ESRD on HD, Hyperparathyroidism, Dysphagia , Pneu Current Diet Renal diet Labs/Tests K 6.2 BUN 170 BG 134 Pertinent Medications Reviewed Height 5 ft 6 in Weight 73.5 kg [place] Body Weight (kg) 64.54 BMI 26.1 Subjective/Other Information Pt was not in room for reassessment, in HD. Observed pt tray, pt consumed all oatmel, no eggs or toast. Pt consumed 100% of Nepro. Percent of energy/protein needs met: 100%/100% Burn Absent Trauma Absent Minimum of two criteria No #1 Nutrition Diagnosis Inadequate energy intake Etiology pt states lack of appetite As Evidenced by Signs and Symptoms Pt consuming 100% of PRO/kcal needs Diagnosis Progress(for reassessment Improved documentation) Is patient on ventilator? No Is Patient Ambulatory and/or Out of Bed No REE-([place]-confined to bed) [phone] Additional Notes PRO needs: 88g(1.2g/kg) Fluid needs: 1-1.5L/day Nutrition Intervention Change Diet Order: Continue renal diet Continue ONS Add Supplement/Snack (indicate name/kcal Nepro BID /protein ) Provides kCal: 850 Provides Protein (gm) 38 Goal #1 Meet at least 75% of energy and PRO needs via PO and ONS Anticipated Discharge Needs: Renal Diet and ONS BID Follow-Up By: 11/20/18 Additional Comments F/U for PO/ONS intakes
[2018-11-19] MEDS: ACETAMINOPHEN 650 MG RECT SUPP PR PRN (20:38)
--- NOTE | 2018-11-20 08:05 | Progress Note ---
Assessment and Plan - Patient Problems (1) Sepsis due to infected central venous catheter Current Visit: Yes Status: Acute Plan to address problem: Continue antibiotics. Repeat blood cultures negative from November 15. Continue to Follow-up cultures (2) End stage renal disease Current Visit: Yes Status: Acute Plan to address problem: Received Hemodialysis daily for 3 days. No dialysis today. Next dialysis will be tomorrow (3) Altered mental status Current Visit: Yes Status: Acute Plan to address problem: CT head was negative. Concerned about septic emboli to the brain. Mental status is improving suggesting toxic/metabolic encephalopathy. I agree with getting MRI of the brain (4) Hyperkalemia Current Visit: Yes Status: Acute Plan to address problem: Potassium has improved. 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 chronic kidney disease or end stage renal disease Current Visit: Yes Status: Chronic Plan to address problem: Follow-up blood pressure on current medications (6) Anemia in CKD (chronic kidney disease) Current Visit: No Status: Acute Qualifiers: Chronic kidney disease stage: stage 5, not on chronic dialysis Qualified Code(s): N18.5 - Chronic kidney disease, stage 5; D63.1 - Anemia in chronic kidn ey disease Plan to address problem: Give erythropoietin on dialysis Subjective Date of service: 11/20/18 Principal diagnosis: end-stage renal disease with line sepsis Interval history: Patient seen lying in bed on dialysis. He is again more responsive. is at the bedside. He has no complaints except weakness. Objective - Exam Narrative Exam: Elderly -Thai male lying in bed in no acute distress HEENT: NCAT, pink oral mucous membrane Neck: Supple, no venous distention CVS: S1S2 RRR with no murmur, rub or gallop Chest: Clear to auscultation Abdomen: Protuberant, soft, nontender, no organomegaly, bowel sounds are present Extremities: No edema, no clubbing Skin no rash Neuro: Answer simple questions , muscle power 1 over 5 Rt >Lt - Vital Signs Vital signs: Vital Signs - 12hr 11/19/18 11/19/18 11/19/18 20:09 20:38 21:38 Temperature 99.3 F Pulse Rate 113 H Pulse Rate [ From Monitor] Respiratory 26 H 20 18 Rate Blood Pressure 114/53 O2 Sat by Pulse 93 Oximetry 11/19/18 11/20/18 11/20/18 22:00 02:14 07:31 Temperature 99.2 F 99.4 F Pulse Rate 96 H 84 Pulse Rate [ 106 H From Monitor] Respiratory 18 22 20 Rate Blood Pressure 102/54 125/55 O2 Sat by Pulse 96 97 97 Oximetry - Lab 11/19/18 07:00 11/19/18 07:00 Most recent lab results Calcium 9.2 mg/dL (8.4-10.2) 11/19/18 07:00 Phosphorus 3.70 mg/dL (2.5-4.5) 11/11/18 23:15 Medications & Allergies - Medications Allergies/Adverse Reactions: Allergies No Known Allergies Allergy (Verified 08/27/18 16:19) Home Medications: Home Medications Medication Instructions Recorded Confirmed Last Taken Type Ferrous Sulfate [Iron Supplement 150 mg PO BID 07/31/13 11/14/18 07/14/18 History 325 Mg tab] Kyle-3S/Dha/Epa/Fish Oil/D3 [Fish 1 each PO DAILY 07/31/13 11/14/18 09/02/18 05:20 History Wml-Jdpal-6-Vit D Softgel] amLODIPine [Norvasc] 10 mg PO DAILY 07/31/13 11/14/18 09/02/18 05:20 History cloNIDine [Catapres] 0.2 mg PO BID 07/31/13 11/14/18 09/02/18 05:20 History Carvedilol [Coreg] 6.25 mg PO BID 05/22/18 11/14/18 09/02/18 05:20 History Ergocalciferol (Vitamin D2) 2,000 unit PO DAILY 05/22/18 11/14/18 09/02/18 05:20 History [Vitamin D2] HYDROcodone/APAP 5-325 [[place] 1 each PO Q6HR PRN #25 tablet 09/02/18 11/14/18 Unknown Rx 5-325 mg TAB] Active Medications: Generic Name Dose Route Start Last Admin Trade Name Freq PRN Reason Stop Dose Admin Acetaminophen 650 mg 11/11/18 23:03 11/19/18 20:38 Tylenol ND 650 mg Q4H PRN Administration Pain, Mild (1-3) Epoetin Jeramy 10,000 unit 11/17/18 12:46 11/19/18 14:00 Procrit IV 10,000 unit TuThSa ISABELLA Administration Sodium Chloride 100 mls @ 999 mls/hr 11/13/18 13:19 Nacl 0.9% IV SISSY PRN Hypotension Cefazolin Sodium 1 gm in 50 mls @ 100 mls/hr 11/19/18 18:00 11/19/18 17:15 Ancef/Ns 1 Gm/50 Ml IV 100 mls/hr QPM ISABELLA Administration Protocol Ondansetron HCl 4 mg 11/11/18 22:59 11/13/18 01:31 Zofran IV 4 mg Q4H PRN Administration Nausea And Vomiting Oxycodone/Acetaminophen 1 tab 11/16/18 16:10 11/16/18 16:33 Percocet 5/325 PO 1 tab Q6H PRN Administration Pain, Moderate (4-6) Sodium Chloride 10 ml 11/12/18 10:00 11/19/18 22:22 Sodium Chloride Flush Syringe 10 Ml IV 10 ml BID ISABELLA Administration Sodium Chloride 10 ml 11/11/18 22:59 11/18/18 13:50 Sodium Chloride Flush Syringe 10 Ml IV 10 ml PRN PRN Administration LINE FLUSH
--- NOTE | 2018-11-20 12:17 | Magnetic Resonance Report ---
MRI BRAIN WITHOUT CONTRAST INDICATION / CLINICAL INFORMATION: Altered mental status. TECHNIQUE: Multisequence, multiplanar images were obtained. COMPARISON: CT head dated 11/16/2008 FINDINGS: CEREBRAL and CEREBELLAR HEMISPHERES: Mild chronic microangiopathy is again demonstrated in the white matter. No evidence of mass or mass effect. No midline shift. No acute hemorrhage. There is a subt le 5 mm focus of diffusion restriction in the right frontal white matter on diffusion image 17 but no decreased signal on the ADC map. This could represent T2 shine through artifact. A tiny focus of sub acute ischemia could be considered. I suspect this represents artifact. No extra-axial fluid collecti on. VENTRICLES: Normal in size and configuration for age. VISUALIZED ORBITS: No significant abnormality. VISUALIZED PARANASAL SINUSES: No significant abnormality. ADDITIONAL FINDINGS: None. IMPRESSION: Nonspecific chronic white matter changes. Tiny focus of diffusion restriction in the right frontal white matter is probably artifactual. See ab ove and correlate with the patient. No evidence for hemorrhage, mass, mass effect or large area of ischemia. Signer Name: Hemanth Matute Jr, MD Signed: 11/20/2018 12:13 PM Workstation Name: [id number]
--- NOTE | 2018-11-20 12:25 | Progress Note ---
Assessment and Plan Cultures: 11/12/2018 wound culture: MSSA 11/12/2018 vas cath culture: MSSA 11/12/2018 blood culture: MSSA 11/15/2018 blood culture: no growth Assessment: 73 yo M PMHx HTN, ESRD on HD, hyperparathyroidism, OA admitted with vascular catheter infection. 1. MSSA bacteremia secondary to Vascular catheter infection: catheter removed. Repeat blood cultures from 11/15/2018 negative. Got new HD cath placed. TTE unremarkable for any vegetations. 2. Pneumonia - vs fluid overload. On empiric abx. 3. ESRD on HD - renally dose antibiotics. Nephrology following. 4. HTN 5. Hyperparathyroidism. 6. Acute encephalopathy: CT head unremarkable. Etiology unclear. Follow up MRI brain. Improving. Recs: mental status continues to improve. Follow up MRI brain continue IV Cefazolin daily qPM will need 4 weeks of post HD Cefazolin upon discharge at the dialysis center end ing 12/13/2018 recheck CBC in AM Belinda Braun MD, FACP [facility] C: [phone] O: [phone] F: [phone] Subjective Date of service: 11/20/18 Principal diagnosis: end-stage renal disease with line sepsis Interval history: No fever. More awake and conversant today but still disoriented. Daughter at bedside. Objective - Exam Narrative Exam: Physical Exam: Constitutional: awake, alert, conversant but confused Head, Ears, Nose: Normocephalic, atraumatic. External ears, nose normal Eyes: Conjunctivae/corneas clear. No icterus. No ptosis. Neck: Supple, no meningeal signs Cardiovascular: S1, S2 normal. Respiratory: Good air entry, clear to auscultation bilaterally GI: Soft, non-tender; bowel sounds normal. No peritoneal signs Musculoskeletal: No pedal edema, no cyanosis. Left subclavian HD cath + Skin: No rash or abscess Hem/Lymphatic: No palpable cervical or supraclavicular nodes. No lymphangitis Psych: no agitation Neurological: awake, alert but not oriented - Constitutional Vitals: Vital Signs Temp Pulse Resp BP Pulse Ox 99.4 F 84 20 125/55 94 11/20/18 07:31 11/20/18 07:31 11/20/18 07:31 11/20/18 07:31 11/20/18 09:19 Temperature -Last 24 Hours Temperature 99.4 F Temperature 99.2 F Temperature 99.3 F Temperature 98.9 F Temperature 98.9 F Temperature 98.9 F Temperature 98.6 F - Labs CBC & Chem 7: 11/19/18 07:00 11/19/18 07:00
[2018-11-20] MEDS: ACETAMINOPHEN 325 MG TAB PO PRN ×2 (14:53→21:43)
--- NOTE | 2018-11-20 17:01 | Progress Note ---
Assessment and Plan - Patient Problems (1) HTN (hypertension) Current Visit: Yes Status: Acute Plan to address problem: Patient's blood pressure much better control. We'll continue to hold antihypertensives for today. We'll reinitiate with blood pressure stable. (2) HTN (hypertension), malignant Current Visit: Yes Status: Acute Plan to address problem: Patient currently is not requiring any medications for blood pressure (3) Altered mental status Current Visit: Yes Status: Acute Plan to address problem: Patient mental status secondary to metabolic encephalopathy has improved significantly. MRI today unremarkable for CVA. Metabolic encephalopathy was secondary to sepsis. Line sepsis. Patient had an additional fever today. Treated with Tylenol. (4) CKD (chronic kidney disease) requiring chronic dialysis Current Visit: Yes Status: Acute Plan to address problem: Patient with significant uremia. Receiving hemodialysis daily for now. Being followed by nephrology. (5) Sepsis due to infected central venous catheter Current Visit: Yes Status: Acute Plan to address problem: Patient line sepsis from methicillin-resistant staph aureus. Patient receiving ceftezole and. We'll require ceftezole for 4 weeks upon discharge. (6) Weakness Current Visit: Yes Status: Acute Plan to address problem: Generalized weakness multifactorial. End-stage renal disease and infection. Debility patient may require long term facility. Will need PT evaluation. We'll most likely start to evaluation this weekend in preparations for discharge on Friday. History Interval history: Patient remains even more alert today. Hospital course complicated by fever. Patient down for MRI results pending. Hospitalist Physical - Constitutional Vitals: Temp Pulse Resp BP Pulse Ox 101.0 F H 112 H 20 116/58 96 11/20/18 13:41 11/20/18 13:41 11/20/18 13:41 11/20/18 13:41 11/20/18 13:41 General appearance: Present: no acute distress, well-nourished, other (remains confused but much improved.) - EENT Eyes: Present: PERRL - Neck Neck: Present: supple, normal ROM - Respiratory Respiratory: bilateral: rales (a few rails improved.) - Cardiovascular Heart rate: 102 - Extremities Extremities: no ischemia, pulses intact, pulses symmetrical Peripheral Pulses: within normal limits - Abdominal General gastrointestinal: soft, non-tender, non-distended, normal bowel sounds - Integumentary Integumentary: Present: clear, warm, dry - Neurologic Neurologic: other (A Tori moving extremities. Cranial nerves grossly intact.) Results - Labs CBC & Chem 7: 11/19/18 07:00 11/19/18 07:00 Labs: Laboratory Last Values WBC 20.7 K/mm3 (4.5-11.0) H 11/19/18 07:00 RBC 2.97 M/mm3 (3.65-5.03) L 11/19/18 07:00 Hgb 8.6 gm/dl (11.8-15.2) L 11/19/18 07:00 Hct 24.9 % (35.5-45.6) L 11/19/18 07:00 MCV 84 fl (84-94) 11/19/18 07:00 MCH 29 pg (28-32) 11/19/18 07:00 MCHC 34 % (32-34) 11/19/18 07:00 RDW 15.7 % (13.2-15.2) H 11/19/18 07:00 Plt Count 119 K/mm3 (140-440) L 11/19/18 07:00 Lymph % (Auto) Supervisor Doping 11/11/18 19:14 [place] % (Auto) Supervisor Doping 11/13/18 07:29 Eos % (Auto) Supervisor Doping 11/11/18 19:14 Baso % (Auto) Supervisor Doping 11/11/18 19:14 Lymph # Supervisor Doping 11/11/18 19:14 [place] # Supervisor Doping 11/11/18 19:14 Eos # Supervisor Doping 11/11/18 19:14 Baso # Supervisor Doping 11/11/18 19:14 Add Manual Diff Complete 11/17/18 06:09 Total Counted 100 11/17/18 06:09 Seg Neutrophils % Supervisor Doping 11/11/18 19:14 Seg Neuts % (Manual) 83.0 % (40.0-70.0) H 11/17/18 06:09 3.0 % 11/17/18 06:09 7.0 % (13.4-35.0) L 11/17/18 06:09 Reactive Lymphs % (Man) 0 % 11/17/18 06:09 4.0 % (0.0-7.3) 11/17/18 06:09 0 % (0.0-4.3) 11/17/18 06:09 0 % (0.0-1.8) 11/17/18 06:09 3.0 % 11/17/18 06:09 0 % 11/17/18 06:09 0 % 11/17/18 06:09 0 % 11/17/18 06:09 Nucleated RBC % Not Reportable 11/17/18 06:09 Seg Neutrophils # Supervisor Doping 11/11/18 19:14 Seg Neutrophils # Man 13.1 K/mm3 (1.8-7.7) H 11/17/18 06:09 Band Neutrophils # 0.5 K/mm3 11/17/18 06:09 1.1 K/mm3 (1.2-5.4) L 11/17/18 06:09 Abs React Lymphs (Man) 0.0 K/mm3 11/17/18 06:09 0.6 K/mm3 (0.0-0.8) 11/17/18 06:09 0.0 K/mm3 (0.0-0.4) 11/17/18 06:09 0.0 K/mm3 (0.0-0.1) 11/17/18 06:09 0.5 K/mm3 11/17/18 06:09 0.0 K/mm3 11/17/18 06:09 0.0 K/mm3 11/17/18 06:09 Blast Cells # 0.0 K/mm3 11/17/18 06:09 WBC Morphology Not Reportable 11/17/18 06:09 Hypersegmented Neuts Not Reportable 11/17/18 06:09 Hyposegmented Neuts Not Reportable 11/17/18 06:09 Hypogranular Neuts Not Reportable 11/17/18 06:09 Not Reportable 11/17/18 06:09 Not Reportable 11/17/18 06:09 Not Reportable 11/17/18 06:09 Not Reportable 11/17/18 06:09 Not Reportable 11/17/18 06:09 Not Reportable 11/17/18 06:09 Consistent w auto 11/17/18 06:09 Not Reportable 11/17/18 06:09 Plt Clumps, EDTA Not Reportable 11/17/18 06:09 Few 11/17/18 06:09 Not Reportable 11/17/18 06:09 Not Reportable 11/17/18 06:09 Plt Morphology Comment Not Reportable 11/17/18 06:09 RBC Morphology Not Reportable 11/17/18 06:09 Dimorphic RBCs Not Reportable 11/17/18 06:09 Few 11/17/18 06:09 Few 11/17/18 06:09 Not Reportable 11/17/18 06:09 Not Reportable 11/17/18 06:09 Not Reportable 11/17/18 06:09 Not Reportable 11/17/18 06:09 Not Reportable 11/17/18 06:09 Not Reportable 11/17/18 06:09 Not Reportable 11/17/18 06:09 1+ 11/17/18 06:09 Few 11/17/18 06:09 Not Reportable 11/17/18 06:09 Not Reportable 11/17/18 06:09 Not Reportable 11/17/18 06:09 Not Reportable 11/17/18 06:09 Not Reportable 11/17/18 06:09 Not Reportable 11/17/18 06:09 Not Reportable 11/17/18 06:09 Not Reportable 11/17/18 06:09 Acanthocytes (Spur) Not Reportable 11/17/18 06:09 Rouleaux Not Reportable 11/17/18 06:09 Not Reportable 11/17/18 06:09 Not Reportable 11/17/18 06:09 Not Reportable 11/17/18 06:09 Not Reportable 11/17/18 06:09 Hem Pathologist Commnt No 11/17/18 06:09 Sodium 138 mmol/L (137-145) 11/19/18 07:00 Potassium 4.9 mmol/L (3.6-5.0) 11/19/18 07:00 Chloride 97.6 mmol/L (98-107) L 11/19/18 07:00 Carbon Dioxide 25 mmol/L (22-30) 11/19/18 07:00 20 mmol/L 11/19/18 07:00 BUN 65 mg/dL (9-20) H 11/19/18 07:00 5.4 mg/dL (0.8-1.5) H D 11/19/18 07:00 Estimated GFR 13 ml/min 11/19/18 07:00 12 % 11/19/18 07:00 Glucose 135 mg/dL (75-100) H 11/19/18 07:00 POC Glucose 134 (70-105) H 11/17/18 06:11 Lactic Acid 2.00 mmol/L (0.7-2.0) 11/11/18 17:45 Calcium 9.2 mg/dL (8.4-10.2) 11/19/18 07:00 Phosphorus 3.70 mg/dL (2.5-4.5) 11/11/18 23:15 0.80 mg/dL (0.1-1.2) 11/11/18 17:45 AST 35 units/L (5-40) 11/11/18 17:45 ALT 12 units/L (7-56) 11/11/18 17:45 88 units/L (35-129) 11/11/18 17:45 68.0 umol/L (25-60) H 11/17/18 11:41 363 units/L (55-170) H 11/12/18 03:33 CK-MB (CK-2) 4.0 ng/mL (0.0-4.0) 11/12/18 03:33 CK-MB (CK-2) Rel Index 1.1 (0-4) 11/12/18 03:33 0.274 ng/mL (0.00-0.029) H* 11/12/18 03:33 8.0 g/dL (6.3-8.2) 11/11/18 17:45 3.1 g/dL (3.9-5) L 11/11/18 17:45 0.6 % 11/11/18 17:45 Triglycerides 380 mg/dL (2-149) H 11/11/18 17:45 Cholesterol 117 mg/dL (50-199) 11/11/18 17:45 8 mg/dL (50-130) L 11/11/18 17:45 8 mg/dL (40-59) L 11/11/18 17:45 14.62 % 11/11/18 17:45 Vitamin B12 > 2000 pg/mL (211-911) H 11/17/18 06:09 > 20 ng/mL (7.3-26.0) 11/17/18 06:09 Random Vancomycin 16.5 ug/mL (0-40.0) 11/20/18 05:51 Hepatitis A IgM Ab Non-reactive (NonReactive) 11/12/18 10:01 Hep Bs Antigen Non-reactive (Negative) 11/12/18 10:01 Hep B Core IgM Ab Non-reactive (NonReactive) 11/12/18 10:01 Non-reactive (NonReactive) 11/12/18 10:01 - Imaging and Cardiology Chest x-ray: image reviewed Active Medications - Current Medications Current Medications: Generic Name Dose Route Start Last Admin Trade Name Freq PRN Reason Stop Dose Admin Acetaminophen 650 mg 11/11/18 23:03 11/19/18 20:38 Tylenol SD 650 mg Q4H PRN Administration Pain, Mild (1-3) Acetaminophen 650 mg 11/20/18 14:32 11/20/18 14:53 Tylenol PO 650 mg Q4H PRN Administration Fever >101 Epoetin Jeramy 10,000 unit 11/17/18 12:46 11/19/18 14:00 Procrit IV 10,000 unit TuThSa ISABELLA Administration Sodium Chloride 100 mls @ 999 mls/hr 11/13/18 13:19 Nacl 0.9% IV SISSY PRN Hypotension Cefazolin Sodium 1 gm in 50 mls @ 100 mls/hr 11/19/18 18:00 11/19/18 17:15 Ancef/Ns 1 Gm/50 Ml IV 100 mls/hr QPM ISABELLA Administration Protocol Ondansetron HCl 4 mg 11/11/18 22:59 11/13/18 01:31 Zofran IV 4 mg Q4H PRN Administration Nausea And Vomiting Oxycodone/Acetaminophen 1 tab 11/16/18 16:10 11/16/18 16:33 Percocet 5/325 PO 1 tab Q6H PRN Administration Pain, Moderate (4-6) Sodium Chloride 10 ml 11/12/18 10:00 11/20/18 09:26 Sodium Chloride Flush Syringe 10 Ml IV 10 ml BID ISABELLA Administration Sodium Chloride 10 ml 11/11/18 22:59 11/18/18 13:50 Sodium Chloride Flush Syringe 10 Ml IV 10 ml PRN PRN Administration LINE FLUSH Nutrition/Malnutrition Assess - Dietary Evaluation Nutrition/Malnutrition Findings: Nutrition Notes Start: 11/12/18 14:51 Freq: Status: Active Protocol: Document 11/20/18 10:46 AP (Rec: 11/20/18 11:50 AP [email or web address]) Co-Sign 11/20/18 10:46 LM Nutrition Notes Initial or Follow up Reassessment Current Diagnosis CKD (stage V CKD),Hypertension Other Pertinent Diagnosis ESRD on HD, Hyperparathyroidism, Dysphagia , Pneu Current Diet Renal diet Labs/Tests K WNL BUN 65 Cr 5.4 BG 135 Pertinent Medications Reviewed Height 5 ft 6 in Weight 73.5 kg [place] Body Weight (kg) 64.54 BMI 26.1 Subjective/Other Information Pt was not in room for reassessment, unsure of location. No HD today. Spoke to pt daughter who said pt appetite was poor. Pt didn't have much breakfast (<50%) but daughter reports 50% of dinner tray was consumed. 100% of Glucerna was consumed. Percent of energy/protein needs met: 100%/100% Burn Absent Trauma Absent Minimum of two criteria No #1 Nutrition Diagnosis Inadequate energy intake As Evidenced by Signs and Symptoms Pt consuming 100% of PRO/kcal needs Diagnosis Progress(for reassessment Resolved documentation) Is patient on ventilator? No Is Patient Ambulatory and/or Out of Bed No REE-([facility]-confined to bed) 9340.240 Additional Notes PRO needs: 88g(1.2g/kg) Fluid needs: 1-1.5L/day Nutrition Intervention Change Diet Order: Continue renal diet Continue ONS Add Supplement/Snack (indicate name/kcal Nepro BID /protein ) Provides kCal: 850 Provides Protein (gm) 38 Goal #1 Continue to meet at least 75% of energy and PRO needs via PO and ONS. Anticipated Discharge Needs: Renal Diet and ONS BID Follow-Up By: 11/27/18 Additional Comments F/U for PO/ONS intakes
[2018-11-20] MEDS: ceFAZolin/NS 1 GM/50 ML 1 GM/50 ML BAG IV SCH (17:44)
[2018-11-21 05:12] LABS: Hematocrit 23.5 % (35.5-45.6); Hemoglobin 7.8 gm/dl (11.8-15.2); Mean Corpuscular HGB Conc 33 % (32-34); Mean Corpuscular Volume 84 fl (84-94); Platelet Count 137 K/mm3 (140-440); Red Blood Count 2.78 M/mm3 (3.65-5.03); Red Cell Distribution Width 15.3 % (13.2-15.2)
[2018-11-21 05:21] LABS: Calcium 9.2 mg/dL (8.4-10.2)
--- NOTE | 2018-11-21 11:33 | Progress Note ---
Assessment and Plan Assessment and plan: --Toxic Metabolic encephalopathy Probably secondary to sepsis, end-stage renal disease and uremia CT head negative, closely monitor MRI brain negative. -- MSSA bacteremia secondary to Vascular catheter infection Repeat blood cultures from 11/15/2018 negative. Got new HD cath placed. TTE unremarkable for any vegetations. --Sepsis. As above. Continue antibiotics per ID. --ESRD on dialysis; nephrology following Avoid nephrotoxins, HD per schedule --Community-acquired pneumonia: Empiric antibiotics, f/u cultures --History of Dysphagia; speech evaluated the patient Cleared for oral diet, no symptoms of dysphagia --Hypertension Closely monitor blood pressures and adjust as needed --Thrombocytopenia; no evidence of bleeding Closely monitor platelets, consult hematology if needed --DVT prophylaxis; heparin renal dose --Full code; History Interval history: 73-year-old -[place] male patient with significant past medical history of end-stage renal disease on hemodialysis osteoarthritis was admitted through emergency room with worsening shortness of breath, fluid overload, Patient was evaluated noted to have infected right IJ permacath with purulent drainage., Subsequently permacath removed and and patient received vascular And hemodialysis per schedule, Wound and blood cultures are consistent with staph aureus ID evaluated the patient placed on appropriate IV antibiotics Patient had intermittent confusion CT head today negative for acute abnormalities Hospitalist Physical - Constitutional Vitals: Temp Pulse Resp BP Pulse Ox 99.1 F 99 H 20 103/59 94 11/21/18 07:00 11/21/18 10:00 11/21/18 10:00 11/21/18 07:00 11/21/18 10:00 General appearance: Present: no acute distress, well-nourished, other (remains confused but much improved.) - EENT Eyes: Present: PERRL, EOM intact ENT: hearing intact, clear oral mucosa, dentition normal - Neck Neck: Present: supple, normal ROM - Respiratory Respiratory effort: normal Respiratory: bilateral: CTA - Cardiovascular Rhythm: regular Heart Sounds: Present: S1 & S2. Absent: gallop, rub - Extremities Extremities: no ischemia, No edema, Full ROM - Abdominal General gastrointestinal: soft, non-tender, non-distended, normal bowel sounds - Integumentary Integumentary: Present: clear, warm, dry - Neurologic Neurologic: CNII-XII intact, moves all extremities Results - Labs CBC & Chem 7: 11/21/18 04:17 11/21/18 04:17 Labs: Laboratory Last Values WBC 22.7 K/mm3 (4.5-11.0) H 11/21/18 04:17 RBC 2.78 M/mm3 (3.65-5.03) L 11/21/18 04:17 Hgb 7.8 gm/dl (11.8-15.2) L 11/21/18 04:17 Hct 23.5 % (35.5-45.6) L 11/21/18 04:17 MCV 84 fl (84-94) 11/21/18 04:17 MCH 28 pg (28-32) 11/21/18 04:17 MCHC 33 % (32-34) 11/21/18 04:17 RDW 15.3 % (13.2-15.2) H 11/21/18 04:17 Plt Count 137 K/mm3 (140-440) L 11/21/18 04:17 Lymph % (Auto) Clean Up Person 11/11/18 19:14 [place] % (Auto) Clean Up Person 11/13/18 07:29 Eos % (Auto) Clean Up Person 11/11/18 19:14 Baso % (Auto) Clean Up Person 11/11/18 19:14 Lymph # Clean Up Person 11/11/18 19:14 [place] # Clean Up Person 11/11/18 19:14 Eos # Clean Up Person 11/11/18 19:14 Baso # Clean Up Person 11/11/18 19:14 Add Manual Diff Complete 11/17/18 06:09 Total Counted 100 11/17/18 06:09 Seg Neutrophils % Clean Up Person 11/11/18 19:14 Seg Neuts % (Manual) 83.0 % (40.0-70.0) H 11/17/18 06:09 3.0 % 11/17/18 06:09 7.0 % (13.4-35.0) L 11/17/18 06:09 Reactive Lymphs % (Man) 0 % 11/17/18 06:09 4.0 % (0.0-7.3) 11/17/18 06:09 0 % (0.0-4.3) 11/17/18 06:09 0 % (0.0-1.8) 11/17/18 06:09 3.0 % 11/17/18 06:09 0 % 11/17/18 06:09 0 % 11/17/18 06:09 0 % 11/17/18 06:09 Nucleated RBC % Not Reportable 11/17/18 06:09 Seg Neutrophils # Clean Up Person 11/11/18 19:14 Seg Neutrophils # Man 13.1 K/mm3 (1.8-7.7) H 11/17/18 06:09 Band Neutrophils # 0.5 K/mm3 11/17/18 06:09 1.1 K/mm3 (1.2-5.4) L 11/17/18 06:09 Abs React Lymphs (Man) 0.0 K/mm3 11/17/18 06:09 0.6 K/mm3 (0.0-0.8) 11/17/18 06:09 0.0 K/mm3 (0.0-0.4) 11/17/18 06:09 0.0 K/mm3 (0.0-0.1) 11/17/18 06:09 0.5 K/mm3 11/17/18 06:09 0.0 K/mm3 11/17/18 06:09 0.0 K/mm3 11/17/18 06:09 Blast Cells # 0.0 K/mm3 11/17/18 06:09 WBC Morphology Not Reportable 11/17/18 06:09 Hypersegmented Neuts Not Reportable 11/17/18 06:09 Hyposegmented Neuts Not Reportable 11/17/18 06:09 Hypogranular Neuts Not Reportable 11/17/18 06:09 Not Reportable 11/17/18 06:09 Not Reportable 11/17/18 06:09 Not Reportable 11/17/18 06:09 Not Reportable 11/17/18 06:09 Not Reportable 11/17/18 06:09 Not Reportable 11/17/18 06:09 Consistent w auto 11/17/18 06:09 Not Reportable 11/17/18 06:09 Plt Clumps, EDTA Not Reportable 11/17/18 06:09 Few 11/17/18 06:09 Not Reportable 11/17/18 06:09 Not Reportable 11/17/18 06:09 Plt Morphology Comment Not Reportable 11/17/18 06:09 RBC Morphology Not Reportable 11/17/18 06:09 Dimorphic RBCs Not Reportable 11/17/18 06:09 Few 11/17/18 06:09 Few 11/17/18 06:09 Not Reportable 11/17/18 06:09 Not Reportable 11/17/18 06:09 Not Reportable 11/17/18 06:09 Not Reportable 11/17/18 06:09 Not Reportable 11/17/18 06:09 Not Reportable 11/17/18 06:09 Not Reportable 11/17/18 06:09 1+ 11/17/18 06:09 Few 11/17/18 06:09 Not Reportable 11/17/18 06:09 Not Reportable 11/17/18 06:09 Not Reportable 11/17/18 06:09 Not Reportable 11/17/18 06:09 Not Reportable 11/17/18 06:09 Not Reportable 11/17/18 06:09 Not Reportable 11/17/18 06:09 Not Reportable 11/17/18 06:09 Acanthocytes (Spur) Not Reportable 11/17/18 06:09 Rouleaux Not Reportable 11/17/18 06:09 Not Reportable 11/17/18 06:09 Not Reportable 11/17/18 06:09 Not Reportable 11/17/18 06:09 Not Reportable 11/17/18 06:09 Hem Pathologist Commnt No 11/17/18 06:09 Sodium 131 mmol/L (137-145) L D 11/21/18 04:17 Potassium 4.9 mmol/L (3.6-5.0) 11/21/18 04:17 Chloride 85.7 mmol/L (98-107) L 11/21/18 04:17 Carbon Dioxide 22 mmol/L (22-30) 11/21/18 04:17 28 mmol/L 11/21/18 04:17 BUN 94 mg/dL (9-20) H 11/21/18 04:17 6.9 mg/dL (0.8-1.5) H 11/21/18 04:17 Estimated GFR 10 ml/min 11/21/18 04:17 14 % 11/21/18 04:17 Glucose 144 mg/dL (75-100) H 11/21/18 04:17 POC Glucose 134 (70-105) H 11/17/18 06:11 Lactic Acid 2.00 mmol/L (0.7-2.0) 11/11/18 17:45 Calcium 9.2 mg/dL (8.4-10.2) 11/21/18 04:17 Phosphorus 11.30 mg/dL (2.5-4.5) H 11/21/18 04:17 0.80 mg/dL (0.1-1.2) 11/11/18 17:45 AST 35 units/L (5-40) 11/11/18 17:45 ALT 12 units/L (7-56) 11/11/18 17:45 88 units/L (35-129) 11/11/18 17:45 68.0 umol/L (25-60) H 11/17/18 11:41 363 units/L (55-170) H 11/12/18 03:33 CK-MB (CK-2) 4.0 ng/mL (0.0-4.0) 11/12/18 03:33 CK-MB (CK-2) Rel Index 1.1 (0-4) 11/12/18 03:33 0.274 ng/mL (0.00-0.029) H* 11/12/18 03:33 8.0 g/dL (6.3-8.2) 11/11/18 17:45 3.1 g/dL (3.9-5) L 11/11/18 17:45 0.6 % 11/11/18 17:45 Triglycerides 380 mg/dL (2-149) H 11/11/18 17:45 Cholesterol 117 mg/dL (50-199) 11/11/18 17:45 8 mg/dL (50-130) L 11/11/18 17:45 8 mg/dL (40-59) L 11/11/18 17:45 14.62 % 11/11/18 17:45 Vitamin B12 > 2000 pg/mL (211-911) H 11/17/18 06:09 > 20 ng/mL (7.3-26.0) 11/17/18 06:09 Random Vancomycin 16.5 ug/mL (0-40.0) 11/20/18 05:51 Hepatitis A IgM Ab Non-reactive (NonReactive) 11/12/18 10:01 Hep Bs Antigen Non-reactive (Negative) 11/12/18 10:01 Hep B Core IgM Ab Non-reactive (NonReactive) 11/12/18 10:01 Non-reactive (NonReactive) 11/12/18 10:01 Active Medications - Current Medications Current Medications: Generic Name Dose Route Start Last Admin Trade Name Freq PRN Reason Stop Dose Admin Acetaminophen 650 mg 11/11/18 23:03 11/19/18 20:38 Tylenol PA 650 mg Q4H PRN Administration Pain, Mild (1-3) Acetaminophen 650 mg 11/20/18 14:32 11/20/18 21:43 Tylenol PO 650 mg Q4H PRN Administration Fever >101 Epoetin Jeramy 10,000 unit 11/17/18 12:46 11/19/18 14:00 Procrit IV 10,000 unit TuThSa ISABELLA Administration Sodium Chloride 100 mls @ 999 mls/hr 11/13/18 13:19 Nacl 0.9% IV SISSY PRN Hypotension Cefazolin Sodium 1 gm in 50 mls @ 100 mls/hr 11/19/18 18:00 11/20/18 17:44 Ancef/Ns 1 Gm/50 Ml IV 100 mls/hr QPM ISABELLA Administration Protocol Ondansetron HCl 4 mg 11/11/18 22:59 11/13/18 01:31 Zofran IV 4 mg Q4H PRN Administration Nausea And Vomiting Oxycodone/Acetaminophen 1 tab 11/16/18 16:10 11/16/18 16:33 Percocet 5/325 PO 1 tab Q6H PRN Administration Pain, Moderate (4-6) Sodium Chloride 10 ml 11/12/18 10:00 11/21/18 09:19 Sodium Chloride Flush Syringe 10 Ml IV 10 ml BID ISABELLA Administration Sodium Chloride 10 ml 11/11/18 22:59 11/18/18 13:50 Sodium Chloride Flush Syringe 10 Ml IV 10 ml PRN PRN Administration LINE FLUSH Nutrition/Malnutrition Assess - Dietary Evaluation Nutrition/Malnutrition Findings: Nutrition Notes Start: 11/12/18 14:51 Freq: Status: Active Protocol: Document 11/20/18 10:46 AP (Rec: 11/20/18 11:50 AP [email or web address]) Co-Sign 11/20/18 10:46 LM Nutrition Notes Initial or Follow up Reassessment Current Diagnosis CKD (stage V CKD),Hypertension Other Pertinent Diagnosis ESRD on HD, Hyperparathyroidism, Dysphagia , Pneu Current Diet Renal diet Labs/Tests K WNL BUN 65 Cr 5.4 BG 135 Pertinent Medications Reviewed Height 5 ft 6 in Weight 73.5 kg [place] Body Weight (kg) 64.54 BMI 26.1 Subjective/Other Information Pt was not in room for reassessment, unsure of location. No HD today. Spoke to pt daughter who said pt appetite was poor. Pt didn't have much breakfast (<50%) but daughter reports 50% of dinner tray was consumed. 100% of Glucerna was consumed. Percent of energy/protein needs met: 100%/100% Burn Absent Trauma Absent Minimum of two criteria No #1 Nutrition Diagnosis Inadequate energy intake As Evidenced by Signs and Symptoms Pt consuming 100% of PRO/kcal needs Diagnosis Progress(for reassessment Resolved documentation) Is patient on ventilator? No Is Patient Ambulatory and/or Out of Bed No [place] [place]1.240 Additional Notes PRO needs: 88g(1.2g/kg) Fluid needs: 1-1.5L/day Nutrition Intervention Change Diet Order: Continue renal diet Continue ONS Add Supplement/Snack (indicate name/kcal Nepro BID /protein ) Provides kCal: 850 Provides Protein (gm) 38 Goal #1 Continue to meet at least 75% of energy and PRO needs via PO and ONS. Anticipated Discharge Needs: Renal Diet and ONS BID Follow-Up By: 11/27/18 Additional Comments F/U for PO/ONS intakes
[2018-11-21] MEDS ORDERED: SODIUM CHLORIDE*PRIMING MACHINE ONLY FOR DIALYSIS MC ONE (13:03)
[2018-11-21] MEDS: EPOETIN ALFA 10,000 UNIT/1 ML INJ IV SCH (13:43)
--- NOTE | 2018-11-21 15:41 | Progress Note ---
Assessment and Plan - Patient Problems (1) Sepsis due to infected central venous catheter Current Visit: Yes Status: Acute Plan to address problem: Continue antibiotics. Repeat blood cultures negative from November 15. Continue to Follow-up cultures (2) End stage renal disease Current Visit: Yes Status: Acute Plan to address problem: Received Hemodialysis daily for 3 days. Hemodialysis today. With increasing BUN/creatinine, will increased time on dialysis to 4 hrs and may need to do 4 days a week. Probably secondary to hypercatabolic state (3) Altered mental status Current Visit: Yes Status: Acute Plan to address problem: CT head was negative. Concerned about septic emboli to the brain and MRI of the brain was negative. Mental status is improving suggesting toxic/metabolic encephalopathy. (4) Hyperkalemia Current Visit: Yes Status: Acute Plan to address problem: Potassium has improved. 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 chronic kidney disease or end stage renal disease Current Visit: Yes Status: Chronic Plan to address problem: Follow-up blood pressure on current medications (6) Anemia in CKD (chronic kidney disease) Current Visit: No Status: Acute Qualifiers: Chronic kidney disease stage: stage 5, not on chronic dialysis Qualified Code(s): N18.5 - Chronic kidney disease, stage 5; D63.1 - Anemia in chronic kidney disease Plan to address problem: Give erythropoietin on dialysis Subjective Date of service: 11/21/18 Principal diagnosis: end-stage renal disease with line sepsis Interval history: Patient seen lying in bed on dialysis. He is more responsive. No family at the bedside. He has no complaints except weakness. Objective - Exam Narrative Exam: Elderly -Guy[place] male lying in bed in no acute distress HEENT: NCAT, pink oral mucous membrane Neck: Supple, no venous distention CVS: S1S2 RRR with no murmur, rub or gallop Chest: Clear to auscultation Abdomen: Protuberant, soft, nontender, no organomegaly, bowel sounds are present Extremities: No edema, no clubbing Skin no rash Neuro: Answer simple questions , muscle power 1 over 5 Rt >Lt - Vital Signs Vital signs: Vital Signs - 12hr 11/21/18 11/21/18 11/21/18 07:00 10:00 10:45 Temperature 99.1 F 99.1 F Pulse Rate 99 H 108 H Pulse Rate [ 99 H From Monitor] Respiratory 18 20 18 Rate Blood Pressure 114/57 Blood Pressure 103/59 [Right] O2 Sat by Pulse 98 94 Oximetry 11/21/18 11/21/18 11/21/18 11:00 11:15 11:30 Temperature Pulse Rate 95 H 90 107 H Pulse Rate [ From Monitor] Respiratory Rate Blood Pressure 124/67 112/61 117/63 Blood Pressure [Right] O2 Sat by Pulse Oximetry 11/21/18 11/21/18 11/21/18 11:45 12:00 12:15 Temperature Pulse Rate 102 H 111 H 112 H Pulse Rate [ From Monitor] Respiratory Rate Blood Pressure 138/65 115/58 121/62 Blood Pressure [Right] O2 Sat by Pulse Oximetry 11/21/18 11/21/18 11/21/18 12:30 12:35 12:45 Temperature Pulse Rate 93 H 92 H 92 H Pulse Rate [ From Monitor] Respiratory Rate Blood Pressure 94/53 104/50 111/53 Blood Pressure [Right] O2 Sat by Pulse Oximetry 11/21/18 11/21/18 11/21/18 13:00 13:15 13:30 Temperature Pulse Rate 103 H 94 H 98 H Pulse Rate [ From Monitor] Respiratory Rate Blood Pressure 102/59 100/70 137/58 Blood Pressure [Right] O2 Sat by Pulse Oximetry 11/21/18 11/21/18 11/21/18 13:45 14:00 14:15 Temperature Pulse Rate 100 H 106 H 106 H Pulse Rate [ From Monitor] Respiratory Rate Blood Pressure 130/58 115/59 130/91 Blood Pressure [Right] O2 Sat by Pulse Oximetry 11/21/18 14:30 Temperature 98.8 F Pulse Rate 104 H Pulse Rate [ From Monitor] Respiratory 18 Rate Blood Pressure 132/92 Blood Pressure [Right] O2 Sat by Pulse Oximetry - Lab 11/21/18 04:17 11/21/18 04:17 Most recent lab results Calcium 9.2 mg/dL (8.4-10.2) 11/21/18 04:17 Phosphorus 11.30 mg/dL (2.5-4.5) H 11/21/18 04:17 Medications & Allergies - Medications Allergies/Adverse Reactions: Allergies No Known Allergies Allergy (Verified 08/27/18 16:19) Home Medications: Home Medications Medication Instructions Recorded Confirmed Last Taken Type Ferrous Sulfate [Iron Supplement 150 mg PO BID 05/11/14/18 07/14/18 History 325 Mg tab] [place]-3S/Dha/Epa/Fish Oil/D3 [Fish 1 each PO DAILY 07/31/13 11/14/18 09/02/18 05:20 History [place]-2-Vit D Softgel] amLODIPine [Norvasc] 10 mg PO DAILY 07/31/13 11/14/18 09/02/18 05:20 History cloNIDine [Catapres] 0.2 mg PO BID 07/31/13 11/14/18 09/02/18 05:20 History Carvedilol [Coreg] 6.25 mg PO BID 05/22/18 11/14/18 09/02/18 05:20 History Ergocalciferol (Vitamin D2) 2,000 unit PO DAILY 05/22/18 11/14/18 09/02/18 05:20 History [Vitamin D2] HYDROcodone/APAP 5-325 [[place] 1 each PO Q6HR PRN #25 tablet 09/02/18 11/14/18 Unknown Rx 5-325 mg TAB] Active Medications: Generic Name Dose Route Start Last Admin Trade Name Freq PRN Reason Stop Dose Admin Acetaminophen 650 mg 11/11/18 23:03 11/19/18 20:38 Tylenol [place] 650 mg Q4H PRN Administration Pain, Mild (1-3) Acetaminophen 650 mg 11/20/18 14:32 11/20/18 21:43 Tylenol PO 650 mg Q4H PRN Administration Fever >101 Docusate Sodium 100 mg 11/21/18 22:00 Colace PO BID COUNT INCLUDES THE [facility] Epoetin Jeramy 10,000 unit 11/17/18 12:46 11/21/18 13:43 Procrit IV 10,000 unit TuThSa ISABELLA Administration Sodium Chloride 100 mls @ 999 mls/hr 11/13/18 13:19 Nacl 0.9% IV SISSY PRN Hypotension Cefazolin Sodium 1 gm in 50 mls @ 100 mls/hr 11/19/18 18:00 11/20/18 17:44 Ancef/Ns 1 Gm/50 Ml IV 100 mls/hr QPM ISABELLA Administration Protocol Ondansetron HCl 4 mg 11/11/18 22:59 11/13/18 01:31 Zofran IV 4 mg Q4H PRN Administration Nausea And Vomiting Oxycodone/Acetaminophen 1 tab 11/16/18 16:10 11/16/18 16:33 Percocet 5/325 PO 1 tab Q6H PRN Administration Pain, Moderate (4-6) Sodium Chloride 10 ml 11/12/18 10:00 11/21/18 09:19 Sodium Chloride Flush Syringe 10 Ml IV 10 ml BID ISABELLA Administration Sodium Chloride 10 ml 11/11/18 22:59 11/18/18 13:50 Sodium Chloride Flush Syringe 10 Ml IV 10 ml PRN PRN Administration LINE FLUSH
[2018-11-21] MEDS: ceFAZolin/NS 1 GM/50 ML 1 GM/50 ML BAG IV SCH (17:36)
[2018-11-21] MEDS: ACETAMINOPHEN 325 MG TAB PO PRN (19:36)
[2018-11-21] MEDS: DOCUSATE SODIUM 100 MG CAP PO SCH (21:04)
[2018-11-22 05:00] LABS: Basophils # (Auto) 0.1 K/mm3 (0.0-0.1); Basophils % (Auto) 0.4 % (0.0-1.8); Eosinophils # (Auto) 0.1 K/mm3 (0.0-0.4); Eosinophils % (Auto) 0.3 % (0.0-4.3); Hematocrit 22.9 % (35.5-45.6); Hemoglobin 7.8 gm/dl (11.8-15.2); Lymphocytes # (Auto) 1.3 K/mm3 (1.2-5.4); Lymphocytes % (Auto) 7.4 % (13.4-35.0); Mean Corpuscular HGB Conc 34 % (32-34); Mean Corpuscular Volume 84 fl (84-94); Monocytes # (Auto) 0.8 K/mm3 (0.0-0.8); Monocytes % (Auto) 4.4 % (0.0-7.3); Platelet Count 124 K/mm3 (140-440); Red Blood Count 2.72 M/mm3 (3.65-5.03); Red Cell Distribution Width 15.2 % (13.2-15.2)
[2018-11-22 05:13] LABS: Calcium 8.8 mg/dL (8.4-10.2)
[2018-11-22] MEDS: DOCUSATE SODIUM 100 MG CAP PO SCH ×2 (09:45→21:01)
[2018-11-22] MEDS ORDERED: POLYETHYLENE GLYCOL 3350 17 GM POWDER PO PRN (10:17)
--- NOTE | 2018-11-22 10:17 | Progress Note ---
Assessment and Plan Assessment and plan: --Toxic Metabolic encephalopathy Probably secondary to sepsis, end-stage renal disease and uremia CT head negative, closely monitor MRI brain negative. -- MSSA bacteremia secondary to Vascular catheter infection Repeat blood cultures from 11/15/2018 negative. Got new HD cath placed. TTE unremarkable for any vegetations. Patient still with significant fever --Sepsis. As above. Continue antibiotics per ID. continue to monitor his fever curve --ESRD on dialysis; nephrology following Avoid nephrotoxins, HD per schedule --Community-acquired pneumonia: Empiric antibiotics, f/u cultures --History of Dysphagia; speech evaluated the patient Cleared for oral diet, no symptoms of dysphagia --Hypertension Closely monitor blood pressures and adjust as needed --Thrombocytopenia; no evidence of bleeding Closely monitor platelets, consult hematology if needed --DVT prophylaxis; heparin renal dose --Full code; History Interval history: 73-year-old -French male patient with significant past medical history of end-stage renal disease on hemodialysis osteoarthritis was admitted through emergency room with worsening shortness of breath, fluid overload, Patient was evaluated noted to have infected right IJ permacath with purulent drainage., Subsequently permacath removed and and patient received vascular And hemodialysis per schedule, Wound and blood cultures are consistent with staph aureus ID evaluated the patient placed on appropriate IV antibiotics Patient had intermittent confusion CT head today negative for acute abno [facility] Hospitalist Physical - Constitutional Vitals: Temp Pulse Resp BP Pulse Ox 99.8 F H 111 H 20 116/53 95 11/22/18 07:32 11/22/18 08:36 11/22/18 08:36 11/22/18 07:32 11/22/18 07:32 General appearance: Present: no acute distress, well-nourished, other (remains confused but much improved.) - EENT Eyes: Present: PERRL, EOM intact ENT: hearing intact, clear oral mucosa, dentition normal - Neck Neck: Present: supple, normal ROM - Respiratory Respiratory effort: normal Respiratory: bilateral: CTA - Cardiovascular Rhythm: regular Heart Sounds: Present: S1 & S2. Absent: gallop, rub - Extremities Extremities: no ischemia, No edema, Full ROM - Abdominal General gastrointestinal: soft, non-tender, non-distended, normal bowel sounds - Integumentary Integumentary: Present: clear, warm, dry - Neurologic Neurologic: CNII-XII intact, moves all extremities Results - Labs CBC & Chem 7: 11/22/18 04:02 11/22/18 04:02 Labs: Laboratory Last Values WBC 18.1 K/mm3 (4.5-11.0) H 11/22/18 04:02 RBC 2.72 M/mm3 (3.65-5.03) L 11/22/18 04:02 Hgb 7.8 gm/dl (11.8-15.2) L 11/22/18 04:02 Hct 22.9 % (35.5-45.6) L 11/22/18 04:02 MCV 84 fl (84-94) 11/22/18 04:02 MCH 29 pg (28-32) 11/22/18 04:02 MCHC 34 % (32-34) 11/22/18 04:02 RDW 15.2 % (13.2-15.2) 11/22/18 04:02 Plt Count 124 K/mm3 (140-440) L 11/22/18 04:02 Lymph % (Auto) 7.4 % (13.4-35.0) L 11/22/18 04:02 [place] % (Auto) 4.4 % (0.0-7.3) 11/22/18 04:02 Eos % (Auto) 0.3 % (0.0-4.3) 11/22/18 04:02 Baso % (Auto) 0.4 % (0.0-1.8) 11/22/18 04:02 Lymph # 1.3 K/mm3 (1.2-5.4) 11/22/18 04:02 [place] # 0.8 K/mm3 (0.0-0.8) 11/22/18 04:02 Eos # 0.1 K/mm3 (0.0-0.4) 11/22/18 04:02 Baso # 0.1 K/mm3 (0.0-0.1) 11/22/18 04:02 Add Manual Diff Complete 11/17/18 06:09 Total Counted 100 11/17/18 06:09 Seg Neutrophils % 87.5 % (40.0-70.0) H 11/22/18 04:02 Seg Neuts % (Manual) 83.0 % (40.0-70.0) H 11/17/18 06:09 3.0 % 11/17/18 06:09 7.0 % (13.4-35.0) L 11/17/18 06:09 Reactive Lymphs % (Man) 0 % 11/17/18 06:09 4.0 % (0.0-7.3) 11/17/18 06:09 0 % (0.0-4.3) 11/17/18 06:09 0 % (0.0-1.8) 11/17/18 06:09 3.0 % 11/17/18 06:09 0 % 11/17/18 06:09 0 % 11/17/18 06:09 0 % 11/17/18 06:09 Nucleated RBC % Not Reportable 11/17/18 06:09 Seg Neutrophils # 15.9 K/mm3 (1.8-7.7) H 11/22/18 04:02 Seg Neutrophils # Man 13.1 K/mm3 (1.8-7.7) H 11/17/18 06:09 Band Neutrophils # 0.5 K/mm3 11/17/18 06:09 1.1 K/mm3 (1.2-5.4) L 11/17/18 06:09 Abs React Lymphs (Man) 0.0 K/mm3 11/17/18 06:09 0.6 K/mm3 (0.0-0.8) 11/17/18 06:09 0.0 K/mm3 (0.0-0.4) 11/17/18 06:09 0.0 K/mm3 (0.0-0.1) 11/17/18 06:09 0.5 K/mm3 11/17/18 06:09 0.0 K/mm3 11/17/18 06:09 0.0 K/mm3 11/17/18 06:09 Blast Cells # 0.0 K/mm3 11/17/18 06:09 WBC Morphology Not Reportable 11/17/18 06:09 Hypersegmented Neuts Not Reportable 11/17/18 06:09 Hyposegmented Neuts Not Reportable 11/17/18 06:09 Hypogranular Neuts Not Reportable 11/17/18 06:09 Not Reportable 11/17/18 06:09 Not Reportable 11/17/18 06:09 Not Reportable 11/17/18 06:09 Not Reportable 11/17/18 06:09 Not Reportable 11/17/18 06:09 Not Reportable 11/17/18 06:09 Consistent w auto 11/17/18 06:09 Not Reportable 11/17/18 06:09 Plt Clumps, EDTA Not Reportable 11/17/18 06:09 Few 11/17/18 06:09 Not Reportable 11/17/18 06:09 Not Reportable 11/17/18 06:09 Plt Morphology Comment Not Reportable 11/17/18 06:09 RBC Morphology Not Reportable 11/17/18 06:09 Dimorphic RBCs Not Reportable 11/17/18 06:09 Few 11/17/18 06:09 Few 11/17/18 06:09 Not Reportable 11/17/18 06:09 Not Reportable 11/17/18 06:09 Not Reportable 11/17/18 06:09 Not Reportable 11/17/18 06:09 Not Reportable 11/17/18 06:09 Not Reportable 11/17/18 06:09 Not Reportable 11/17/18 06:09 1+ 11/17/18 06:09 Few 11/17/18 06:09 Not Reportable 11/17/18 06:09 Not Reportable 11/17/18 06:09 Not Reportable 11/17/18 06:09 Not Reportable 11/17/18 06:09 Not Reportable 11/17/18 06:09 Not Reportable 11/17/18 06:09 Not Reportable 11/17/18 06:09 Not Reportable 11/17/18 06:09 Acanthocytes (Spur) Not Reportable 11/17/18 06:09 Rouleaux Not Reportable 11/17/18 06:09 Not Reportable 11/17/18 06:09 Not Reportable 11/17/18 06:09 Not Reportable 11/17/18 06:09 Not Reportable 11/17/18 06:09 Hem Pathologist Commnt No 11/17/18 06:09 Sodium 134 mmol/L (137-145) L 11/22/18 04:02 Potassium 4.4 mmol/L (3.6-5.0) 11/22/18 04:02 Chloride 92.0 mmol/L (98-107) L 11/22/18 04:02 Carbon Dioxide 26 mmol/L (22-30) 11/22/18 04:02 20 mmol/L 11/22/18 04:02 BUN 61 mg/dL (9-20) H 11/22/18 04:02 4.9 mg/dL (0.8-1.5) H 11/22/18 04:02 Estimated GFR 14 ml/min 11/22/18 04:02 12 % 11/22/18 04:02 Glucose 121 mg/dL (75-100) H 11/22/18 04:02 POC Glucose 134 (70-105) H 11/17/18 06:11 Lactic Acid 2.00 mmol/L (0.7-2.0) 11/11/18 17:45 Calcium 8.8 mg/dL (8.4-10.2) 11/22/18 04:02 Phosphorus 11.30 mg/dL (2.5-4.5) H 11/21/18 04:17 0.80 mg/dL (0.1-1.2) 11/11/18 17:45 AST 35 units/L (5-40) 11/11/18 17:45 ALT 12 units/L (7-56) 11/11/18 17:45 88 units/L (35-129) 11/11/18 17:45 68.0 umol/L (25-60) H 11/17/18 11:41 363 units/L (55-170) H 11/12/18 03:33 CK-MB (CK-2) 4.0 ng/mL (0.0-4.0) 11/12/18 03:33 CK-MB (CK-2) Rel Index 1.1 (0-4) 11/12/18 03:33 0.274 ng/mL (0.00-0.029) H* 11/12/18 03:33 8.0 g/dL (6.3-8.2) 11/11/18 17:45 3.1 g/dL (3.9-5) L 11/11/18 17:45 0.6 % 11/11/18 17:45 Triglycerides 380 mg/dL (2-149) H 11/11/18 17:45 Cholesterol 117 mg/dL (50-199) 11/11/18 17:45 8 mg/dL (50-130) L 11/11/18 17:45 8 mg/dL (40-59) L 11/11/18 17:45 14.62 % 11/11/18 17:45 Vitamin B12 > 2000 pg/mL (211-911) H 11/17/18 06:09 > 20 ng/mL (7.3-26.0) 11/17/18 06:09 Random Vancomycin 16.5 ug/mL (0-40.0) 11/20/18 05:51 Hepatitis A IgM Ab Non-reactive (NonReactive) 11/12/18 10:01 Hep Bs Antigen Non-reactive (Negative) 11/12/18 10:01 Hep B Core IgM Ab Non-reactive (NonReactive) 11/12/18 10:01 Non-reactive (NonReactive) 11/12/18 10:01 Active Medications - Current Medications Current Medications: Generic Name Dose Route Start Last Admin Trade Name Freq PRN Reason Stop Dose Admin Acetaminophen 650 mg 11/11/18 23:03 11/19/18 20:38 Tylenol [place] 650 mg Q4H PRN Administration Pain, Mild (1-3) Acetaminophen 650 mg 11/20/18 14:32 11/21/18 19:36 Tylenol PO 650 mg Q4H PRN Administration Fever >101 Docusate Sodium 100 mg 11/21/18 22:00 11/22/18 09:45 Colace PO 100 mg BID ISABELLA Administration Epoetin Jeramy 10,000 unit 11/17/18 12:46 11/21/18 13:43 Procrit IV 10,000 unit TuThSa ISABELLA Administration Sodium Chloride 100 mls @ 999 mls/hr 11/13/18 13:19 Nacl 0.9% IV SISSY PRN Hypotension Cefazolin Sodium 1 gm in 50 mls @ 100 mls/hr 11/19/18 18:00 11/21/18 17:36 Ancef/Ns 1 Gm/50 Ml IV 100 mls/hr QPM ISABELLA Administration Protocol Ondansetron HCl 4 mg 11/11/18 22:59 11/13/18 01:31 Zofran IV 4 mg Q4H PRN Administration Nausea And Vomiting Oxycodone/Acetaminophen 1 tab 11/16/18 16:10 11/16/18 16:33 Percocet 5/325 PO 1 tab Q6H PRN Administration Pain, Moderate (4-6) Sodium Chloride 10 ml 11/12/18 10:00 11/22/18 09:46 Sodium Chloride Flush Syringe 10 Ml IV 10 ml BID ISABELLA Administration Sodium Chloride 10 ml 11/11/18 22:59 11/18/18 13:50 Sodium Chloride Flush Syringe 10 Ml IV 10 ml PRN PRN Administration LINE FLUSH Nutrition/Malnutrition Assess - Dietary Evaluation Nutrition/Malnutrition Findings: Nutrition Notes Start: 11/12/18 14:51 Freq: Status: Active Protocol: Document 11/20/18 10:46 AP (Rec: 11/20/18 11:50 AP [email or web address]) Co-Sign 11/20/18 10:46 LM Nutrition Notes Initial or Follow up Reassessment Current Diagnosis CKD (stage V CKD),Hypertension Other Pertinent Diagnosis ESRD on HD, Hyperparathyroidism, Dysphagia , Pneu Current Diet Renal diet Labs/Tests K WNL BUN 65 Cr 5.4 BG 135 Pertinent Medications Reviewed Height 5 ft 6 in Weight 73.5 kg [place] Body Weight (kg) 64.54 BMI 26.1 Subjective/Other Information Pt was not in room for reassessment, unsure of location. No HD today. Spoke to pt daughter who said pt appetite was poor. Pt didn't have much breakfast (<50%) but daughter reports 50% of dinner tray was consumed. 100% of Glucerna was consumed. Percent of energy/protein needs met: 100%/100% Burn Absent Trauma Absent Minimum of two criteria No #1 Nutrition Diagnosis Inadequate energy intake As Evidenced by Signs and Symptoms Pt consuming 100% of PRO/kcal needs Diagnosis Progress(for reassessment Resolved documentation) Is patient on ventilator? No Is Patient Ambulatory and/or Out of Bed No REE-([facility]-confined to bed) [phone] Additional Notes PRO needs: 88g(1.2g/kg) Fluid needs: 1-1.5L/day Nutrition Intervention Change Diet Order: Continue renal diet Continue ONS Add Supplement/Snack (indicate name/kcal [place] BID /protein ) Provides kCal: 850 Provides Protein (gm) 38 Goal #1 Continue to meet at least 75% of energy and PRO needs via PO and ONS. Anticipated Discharge Needs: Renal Diet and ONS BID Follow-Up By: 11/27/18 Additional Comments F/U for PO/ONS intakes
--- NOTE | 2018-11-22 15:06 | Progress Note ---
Assessment and Plan - Patient Problems (1) Sepsis due to infected central venous catheter Current Visit: Yes Status: Acute Plan to address problem: Continue antibiotics. Repeat blood cultures negative from November 15. Continue to Follow-up cultures (2) End stage renal disease Current Visit: Yes Status: Acute Plan to address problem: Received Hemodialysis daily for 3 days last week and then was dialyzed on Friday. BUN already increasing showing the hypercatabolic state. We'll dialyze again tomorrow. (3) Altered mental status Current Visit: Yes Status: Acute Plan to address problem: CT head was negative. Concerned about septic emboli to the brain and MRI of the brain was negative. Mental status is improving suggesting toxic/metabolic encephalopathy. (4) Hyperkalemia Current Visit: Yes Status: Acute Plan to address problem: Potassium has improved. 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 chronic kidney disease or e nd stage renal disease Current Visit: Yes Status: Chronic Plan to address problem: Follow-up blood pressure on current medications (6) Anemia in CKD (chronic kidney disease) Current Visit: No Status: Acute Qualifiers: Chronic kidney disease stage: stage 5, not on chronic dialysis Qualified Code(s): N18.5 - Chronic kidney disease, stage 5; D63.1 - Anemia in chronic kidney disease Plan to address problem: Give erythropoietin on dialysis Subjective Date of service: 11/22/18 Principal diagnosis: end-stage renal disease with line sepsis Interval history: Patient seen lying in bed. He is more responsive. Family - - at the bedside. He has no complaints except weakness. Objective - Exam Narrative Exam: Elderly -Citizen Of [place] male lying in bed in no acute distress HEENT: NCAT, pink oral mucous membrane Neck: Supple, no venous distention CVS: S1S2 RRR with no murmur, rub or gallop Chest: Clear to auscultation Abdomen: Protuberant, soft, nontender, no organomegaly, bowel sounds are present Extremities: No edema, no clubbing Skin no rash Neuro: Answer simple questions , muscle power 1 over 5 Rt >Lt - Vital Signs Vital signs: Vital Signs - 12hr 11/22/18 11/22/18 07:32 08:36 Temperature 99.8 F H Pulse Rate 124 H Pulse Rate [ 111 H From Monitor] Respiratory 18 20 Rate Blood Pressure 116/53 O2 Sat by Pulse 95 Oximetry - Lab 11/22/18 04:02 11/22/18 04:02 Most recent lab results Calcium 8.8 mg/dL (8.4-10.2) 11/22/18 04:02 Phosphorus 11.30 mg/dL (2.5-4.5) H 11/21/18 04:17 Medications & Allergies - Medications Allergies/Adverse Reactions: Allergies No Known Allergies Allergy (Verified 08/27/18 16:19) Home Medications: Home Medications Medication Instructions Recorded Confirmed Last Taken Type Ferrous Sulfate [Iron Supplement 150 mg PO BID 07/31/13 11/14/18 07/14/18 History 325 Mg tab] [place]-3S/Dha/Epa/Fish Oil/D3 [[place] 1 each PO DAILY 07/31/13 11/14/18 09/02/18 05:20 History [place]-Lgz[place]-2-Vit D Softgel] amLODIPine [Norvasc] 10 mg PO DAILY 07/31/13 11/14/18 09/02/18 05:20 History cloNIDine [Catapres] 0.2 mg PO BID 07/31/13 11/14/18 09/02/18 05:20 History Carvedilol [Coreg] 6.25 mg PO BID 05/22/18 11/14/18 09/02/18 05:20 History Ergocalciferol (Vitamin D2) 2,000 unit PO DAILY 05/22/18 11/14/18 09/02/18 05:20 History [Vitamin D2] HYDROcodone/APAP 5-325 [[place] 1 each PO Q6HR PRN #25 tablet 09/02/18 11/14/18 Unknown Rx 5-325 mg TAB] Active Medications: Generic Name Dose Route Start Last Admin Trade Name Freq PRN Reason Stop Dose Admin Acetaminophen 650 mg 11/11/18 23:03 11/19/18 20:38 Tylenol [place] 650 mg Q4H PRN Administration Pain, Mild (1-3) Acetaminophen 650 mg 11/20/18 14:32 11/21/18 19:36 Tylenol PO 650 mg Q4H PRN Administration Fever >101 Docusate Sodium 100 mg 11/21/18 22:00 11/22/18 09:45 Colace PO 100 mg BID ISABELLA Administration Epoetin [place] 10,000 unit 11/17/18 12:46 11/21/18 13:43 Procrit IV 10,000 unit TuThSa ISABELLA Administration Sodium Chloride 100 mls @ 999 mls/hr 11/13/18 13:19 Nacl 0.9% IV SISSY PRN Hypotension Cefazolin Sodium 1 gm in 50 mls @ 100 mls/hr 11/19/18 18:00 11/21/18 17:36 Ancef/Ns 1 Gm/50 Ml IV 100 mls/hr QPM ISABELLA Administration Protocol Ondansetron HCl 4 mg 11/11/18 22:59 11/13/18 01:31 Zofran IV 4 mg Q4H PRN Administration Nausea And Vomiting Oxycodone/Acetaminophen 1 tab 11/16/18 16:10 11/16/18 16:33 Percocet 5/325 PO 1 tab Q6H PRN Administration Pain, Moderate (4-6) Polyethylene Glycol 17 gm 11/22/18 10:17 Miralax 3350 PO BID PRN Constipation Sevelamer Carbonate 2,400 mg 11/22/18 16:30 Renvela PO AC ISABELLA Sodium Chloride 10 ml 11/12/18 10:00 11/22/18 09:46 Sodium Chloride Flush Syringe 10 Ml IV 10 ml BID ISABELLA Administration Sodium Chloride 10 ml 11/11/18 22:59 11/18/18 13:50 Sodium Chloride Flush Syringe 10 Ml IV 10 ml PRN PRN Administration LINE FLUSH
[2018-11-22] MEDS: SEVELAMER CARBONATE 800 MG TAB PO SCH (16:17)
[2018-11-22] MEDS: ceFAZolin/NS 1 GM/50 ML 1 GM/50 ML BAG IV SCH (17:32)
[2018-11-22] MEDS: ACETAMINOPHEN 325 MG TAB PO PRN (18:55)
[2018-11-23 06:32] LABS: Basophils # (Auto) 0.1 K/mm3 (0.0-0.1); Basophils % (Auto) 0.5 % (0.0-1.8); Eosinophils # (Auto) 0.1 K/mm3 (0.0-0.4); Eosinophils % (Auto) 0.5 % (0.0-4.3); Hematocrit 20.7 % (35.5-45.6); Lymphocytes # (Auto) 1.5 K/mm3 (1.2-5.4); Lymphocytes % (Auto) 9.5 % (13.4-35.0); Mean Corpuscular HGB Conc 34 % (32-34); Mean Corpuscular Volume 84 fl (84-94); Monocytes # (Auto) 0.8 K/mm3 (0.0-0.8); Monocytes % (Auto) 5.1 % (0.0-7.3); Platelet Count 136 K/mm3 (140-440); Red Blood Count 2.48 M/mm3 (3.65-5.03)
[2018-11-23 06:44] LABS: Calcium 8.6 mg/dL (8.4-10.2)
[2018-11-23] MEDS: SEVELAMER CARBONATE 800 MG TAB PO SCH ×3 (07:30→16:55)
--- NOTE | 2018-11-23 09:35 | Progress Note ---
Assessment and Plan - Patient Problems (1) Sepsis due to infected central venous catheter Current Visit: Yes Status: Acute Plan to address problem: Continue antibiotics. Repeat blood cultures negative from November 15. Continue to Follow-up cultures (2) End stage renal disease Current Visit: Yes Status: Acute Plan to address problem: Received Hemodialysis daily for 3 days last week and then was dialyzed on Friday. BUN already increasing due to the hypercatabolic state. We'll dialyze again today. (3) Altered mental status Current Visit: Yes Status: Acute Plan to address problem: CT head was negative. Concerned about septic emboli to the brain and MRI of the brain was negative. Mental status is improving suggesting toxic/metabolic encephalopathy. (4) Hyperkalemia Current Visit: Yes Status: Acute Plan to address problem: Potassium has improved. 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 chronic kidney disease or end stage renal disease Current Visit: Yes Status: Chronic Plan to address problem: Follow-up blood pressure on current medications (6) Anemia in CKD (chronic kidney disease) Current Visit: No Status: Acute Qualifiers: Chronic kidney disease stage: stage 5, not on chronic dialysis Qualified Code(s): N18.5 - Chronic kidney disease, stage 5; D63.1 - Anemia in chronic kidney disease Plan to address problem: Give erythropoietin on dialysis Subjective Date of service: 11/23/18 Principal diagnosis: end-stage renal disease with line sepsis Interval history: Patient seen lying in bed. He is more responsive. No Family at the bedside. He has no complaints except weakness. Objective - Exam Narrative Exam: Elderly -[place]onegas[place] male lying in bed in no acute distress HEENT: NCAT, pink oral mucous membrane Neck: Supple, no venous distention CVS: S1S2 RRR with no murmur, rub or gallop Chest: Clear to auscultation Abdomen: Protuberant, soft, nontender, no organomegaly, bowel sounds are present Extremities: No edema, no clubbing Skin no rash Neuro: Answer simple questions , muscle power 1 over 5 Rt >Lt - Vital Signs Vital signs: Vital Signs - 12hr 11/23/18 11/23/18 11/23/18 01:57 07:34 07:41 Temperature 98.7 F 99.3 F Pulse Rate 105 H 107 H Respiratory 18 20 Rate Blood Pressure 122/67 127/50 O2 Sat by Pulse 100 100 98 Oximetry - Lab 11/23/18 05:51 11/23/18 05:51 Most recent lab results Calcium 8.6 mg/dL (8.4-10.2) 11/23/18 05:51 Phosphorus 11.30 mg/dL (2.5-4.5) H 11/21/18 04:17 Medications & Allergies - Medications Allergies/Adverse Reactions: Allergies No Known Allergies Allergy (Verified 08/27/18 16:19) Home Medications: Home Medications Medication Instructions Recorded Confirmed Last Taken Type Ferrous Sulfate [Iron Supplement 150 mg PO BID 07/31/13 11/14/18 07/14/18 History 325 Mg tab] [place]-3S/Dha/Epa/Fish Oil/D3 [Fish 1 each PO DAILY 07/31/13 11/14/18 09/02/18 05:20 History Ttr-Dewvx-3-Vit D Softgel] amLODIPine [Norvasc] 10 mg PO DAILY 07/31/13 11/14/18 09/02/18 05:20 History cloNIDine [Catapres] 0.2 mg PO BID 07/31/13 11/14/18 09/02/18 05:20 History Carvedilol [Coreg] 6.25 mg PO BID 05/22/18 11/14/18 09/02/18 05:20 History Ergocalciferol (Vitamin D2) 2,000 unit PO DAILY 05/22/18 11/14/18 09/02/18 05:20 History [Vitamin D2] HYDROcodone/APAP 5-325 [[place] 1 each PO Q6HR PRN #25 tablet 09/02/18 11/14/18 Unknown Rx 5-325 mg TAB] Active Medications: Generic Name Dose Route Start Last Admin Trade Name Freq PRN Reason Stop Dose Admin Acetaminophen 650 mg 11/11/18 23:03 11/19/18 20:38 Tylenol [place] 650 mg Q4H PRN Administration Pain, Mild (1-3) Acetaminophen 650 mg 11/20/18 14:32 11/22/18 18:55 Tylenol PO 650 mg Q4H PRN Administration Fever >101 Docusate Sodium 100 mg 11/21/18 22:00 11/22/18 21:01 Colace PO 100 mg BID ISABELLA Administration Epoetin Jeramy 10,000 unit 11/17/18 12:46 11/21/18 13:43 Procrit IV 10,000 unit TuThSa ISABELLA Administration Sodium Chloride 100 mls @ 999 mls/hr 11/13/18 13:19 Nacl 0.9% IV SISSY PRN Hypotension Cefazolin Sodium 1 gm in 50 mls @ 100 mls/hr 11/19/18 18:00 11/22/18 17:32 Ancef/Ns 1 Gm/50 Ml IV 12/13/18 18:29 100 mls/hr QPM ISABELLA Administration Protocol Ondansetron HCl 4 mg 11/11/18 22:59 11/13/18 01:31 Zofran IV 4 mg Q4H PRN Administration Nausea And Vomiting Oxycodone/Acetaminophen 1 tab 11/16/18 16:10 11/16/18 16:33 Percocet 5/325 PO 1 tab Q6H PRN Administration Pain, Moderate (4-6) Polyethylene Glycol 17 gm 11/22/18 10:17 11/22/18 18:43 Miralax 3350 PO 17 gm BID PRN Administration Constipation Sevelamer Carbonate 2,400 mg 11/22/18 16:30 11/22/18 16:17 Renvela PO 2,400 mg AC ISABELLA Administration Sodium Chloride 10 ml 11/12/18 10:00 11/22/18 21:01 Sodium Chloride Flush Syringe 10 Ml IV 10 ml BID ISABELLA Administration Sodium Chloride 10 ml 11/11/18 22:59 11/18/18 13:50 Sodium Chloride Flush Syringe 10 Ml IV 10 ml PRN PRN Administration LINE FLUSH
[2018-11-23] MEDS: DOCUSATE SODIUM 100 MG CAP PO SCH ×3 (09:57→22:46)
--- NOTE | 2018-11-23 10:02 | Progress Note ---
Assessment and Plan Assessment and plan: Toxic Metabolic encephalopathy Probably secondary to sepsis, end-stage renal disease and uremia CT head negative, closely monitor MRI brain negative. MSSA bacteremia secondary to Vascular catheter infection Repeat blood cultures from 11/15/2018 negative. Got new HD cath placed. TTE unremarkable for any vegetations. Patient still with significant fever Sepsis. As above. Continue antibiotics per ID. Continue to monitor his fever curve Anemia of CKD Continue erythropoietin. Consider PRBCs with hemodialysis. ESRD on dialysis; nephrology following Avoid nephrotoxins, HD per schedule Community-acquired pneumonia: Empiric antibiotics, f/u cultures History of Dysphagia; speech evaluated the patient Cleared for oral diet, no symptoms of dysphagia Hypertension Closely monitor blood pressures and adjust as needed Thrombocytopenia; no evidence of bleeding Closely monitor platelets, consult hematology if needed DVT prophylaxis; heparin renal dose Full code; History Interval history: 73-year-old -[place] male patient with significant past medical history of end-stage renal disease on hemodialysis osteoarthritis was admitted through emergency room with worsening shortness of breath, fluid overload, Patient was evaluated noted to have infected right IJ permacath with purulent drainage., Subsequently permacath removed and and patient received vascular And hemodialysis per schedule, Wound and blood cultures are consistent with staph aureus ID evaluated the patient placed on appropriate IV antibiotics Patient had intermittent confusion CT head today negative for acute abnormalities Hospitalist Physical - Constitutional Vitals: Temp Pulse Resp BP Pulse Ox 99.3 F 107 H 20 127/50 98 11/23/18 07:41 11/23/18 07:41 11/23/18 07:41 11/23/18 07:41 11/23/18 07:41 General appearance: Present: no acute distress, well-nourished, other (remains confused but much improved.) - EENT Eyes: Present: PERRL, EOM intact ENT: hearing intact, clear oral mucosa, dentition normal - Neck Neck: Present: supple, normal ROM - Respiratory Respiratory effort: normal Respiratory: bilateral: CTA - Cardiovascular Rhythm: regular Heart Sounds: Present: S1 & S2. Absent: gallop, rub - Extremities Extremities: no ischemia, No edema, Full ROM - Abdominal General gastrointestinal: soft, non-tender, non-distended, normal bowel sounds - Integumentary Integumentary: Present: clear, warm, dry - Neurologic Neurologic: CNII-XII intact, moves all extremities Results - Labs CBC & Chem 7: 11/23/18 05:51 11/23/18 05:51 Labs: Laboratory Last Values WBC 15.7 K/mm3 (4.5-11.0) H 11/23/18 05:51 RBC 2.48 M/mm3 (3.65-5.03) L 11/23/18 05:51 Hgb 7.0 gm/dl (11.8-15.2) L 11/23/18 05:51 Hct 20.7 % (35.5-45.6) L 11/23/18 05:51 MCV 84 fl (84-94) 11/23/18 05:51 MCH 28 pg (28-32) 11/23/18 05:51 MCHC 34 % (32-34) 11/23/18 05:51 RDW 15.0 % (13.2-15.2) 11/23/18 05:51 Plt Count 136 K/mm3 (140-440) L 11/23/18 05:51 Lymph % (Auto) 9.5 % (13.4-35.0) L 11/23/18 05:51 [place] % (Auto) 5.1 % (0.0-7.3) 11/23/18 05:51 Eos % (Auto) 0.5 % (0.0-4.3) 11/23/18 05:51 Baso % (Auto) 0.5 % (0.0-1.8) 11/23/18 05:51 Lymph # 1.5 K/mm3 (1.2-5.4) 11/23/18 05:51 [place] # 0.8 K/mm3 (0.0-0.8) 11/23/18 05:51 Eos # 0.1 K/mm3 (0.0-0.4) 11/23/18 05:51 Baso # 0.1 K/mm3 (0.0-0.1) 11/23/18 05:51 Add Manual Diff Complete 11/17/18 06:09 Total Counted 100 11/17/18 06:09 Seg Neutrophils % 84.4 % (40.0-70.0) H 11/23/18 05:51 Seg Neuts % (Manual) 83.0 % (40.0-70.0) H 11/17/18 06:09 3.0 % 11/17/18 06:09 7.0 % (13.4-35.0) L 11/17/18 06:09 Reactive Lymphs % (Man) 0 % 11/17/18 06:09 4.0 % (0.0-7.3) 11/17/18 06:09 0 % (0.0-4.3) 11/17/18 06:09 0 % (0.0-1.8) 11/17/18 06:09 3.0 % 11/17/18 06:09 0 % 11/17/18 06:09 0 % 11/17/18 06:09 0 % 11/17/18 06:09 Nucleated RBC % Not Reportable 11/17/18 06:09 Seg Neutrophils # 13.2 K/mm3 (1.8-7.7) H 11/23/18 05:51 Seg Neutrophils # Man 13.1 K/mm3 (1.8-7.7) H 11/17/18 06:09 Band Neutrophils # 0.5 K/mm3 11/17/18 06:09 1.1 K/mm3 (1.2-5.4) L 11/17/18 06:09 Abs React Lymphs (Man) 0.0 K/mm3 11/17/18 06:09 0.6 K/mm3 (0.0-0.8) 11/17/18 06:09 0.0 K/mm3 (0.0-0.4) 11/17/18 06:09 0.0 K/mm3 (0.0-0.1) 11/17/18 06:09 0.5 K/mm3 11/17/18 06:09 0.0 K/mm3 11/17/18 06:09 0.0 K/mm3 11/17/18 06:09 Blast Cells # 0.0 K/mm3 11/17/18 06:09 WBC Morphology Not Reportable 11/17/18 06:09 Hypersegmented Neuts Not Reportable 11/17/18 06:09 Hyposegmented Neuts Not Reportable 11/17/18 06:09 Hypogranular Neuts Not Reportable 11/17/18 06:09 Not Reportable 11/17/18 06:09 Not Reportable 11/17/18 06:09 Not Reportable 11/17/18 06:09 Not Reportable 11/17/18 06:09 Not Reportable 11/17/18 06:09 Not Reportable 11/17/18 06:09 Consistent w auto 11/17/18 06:09 Not Reportable 11/17/18 06:09 Plt Clumps, EDTA Not Reportable 11/17/18 06:09 Few 11/17/18 06:09 Not Reportable 11/17/18 06:09 Not Reportable 11/17/18 06:09 Plt Morphology Comment Not Reportable 11/17/18 06:09 RBC Morphology Not Reportable 11/17/18 06:09 Dimorphic RBCs Not Reportable 11/17/18 06:09 Few 11/17/18 06:09 Few 11/17/18 06:09 Not Reportable 11/17/18 06:09 Not Reportable 11/17/18 06:09 Not Reportable 11/17/18 06:09 Not Reportable 11/17/18 06:09 Not Reportable 11/17/18 06:09 Not Reportable 11/17/18 06:09 Not Reportable 11/17/18 06:09 1+ 11/17/18 06:09 Few 11/17/18 06:09 Not Reportable 11/17/18 06:09 Not Reportable 11/17/18 06:09 Not Reportable 11/17/18 06:09 Not Reportable 11/17/18 06:09 Not Reportable 11/17/18 06:09 Not Reportable 11/17/18 06:09 Not Reportable 11/17/18 06:09 Not Reportable 11/17/18 06:09 Acanthocytes (Spur) Not Reportable 11/17/18 06:09 [place]leaux Not Reportable 11/17/18 06:09 Not Reportable 11/17/18 06:09 Not Reportable 11/17/18 06:09 Not Reportable 11/17/18 06:09 Not Reportable 11/17/18 06:09 Hem Pathologist Commnt No 11/17/18 06:09 Sodium 132 mmol/L (137-145) L 11/23/18 05:51 Potassium 5.1 mmol/L (3.6-5.0) H 11/23/18 05:51 Chloride 88.9 mmol/L (98-107) L 11/23/18 05:51 Carbon Dioxide 22 mmol/L (22-30) 11/23/18 05:51 26 mmol/L 11/23/18 05:51 BUN 102 mg/dL (9-20) H 11/23/18 05:51 7.5 mg/dL (0.8-1.5) H D 11/23/18 05:51 Estimated GFR 9 ml/min 11/23/18 05:51 14 % 11/23/18 05:51 Glucose 107 mg/dL (75-100) H 11/23/18 05:51 POC Glucose 134 (70-105) H 11/17/18 06:11 Lactic Acid 2.00 mmol/L (0.7-2.0) 11/11/18 17:45 Calcium 8.6 mg/dL (8.4-10.2) 11/23/18 05:51 Phosphorus 11.30 mg/dL (2.5-4.5) H 11/21/18 04:17 0.80 mg/dL (0.1-1.2) 11/11/18 17:45 AST 35 units/L (5-40) 11/11/18 17:45 ALT 12 units/L (7-56) 11/11/18 17:45 88 units/L (35-129) 11/11/18 17:45 68.0 umol/L (25-60) H 11/17/18 11:41 363 units/L (55-170) H 11/12/18 03:33 CK-MB (CK-2) 4.0 ng/mL (0.0-4.0) 11/12/18 03:33 CK-MB (CK-2) Rel Index 1.1 (0-4) 11/12/18 03:33 0.274 ng/mL (0.00-0.029) H* 11/12/18 03:33 8.0 g/dL (6.3-8.2) 11/11/18 17:45 3.1 g/dL (3.9-5) L 11/11/18 17:45 0.6 % 11/11/18 17:45 Triglycerides 380 mg/dL (2-149) H 11/11/18 17:45 Cholesterol 117 mg/dL (50-199) 11/11/18 17:45 8 mg/dL (50-130) L 11/11/18 17:45 8 mg/dL (40-59) L 11/11/18 17:45 14.62 % 11/11/18 17:45 Vitamin B12 > 2000 pg/mL (211-911) H 11/17/18 06:09 > 20 ng/mL (7.3-26.0) 11/17/18 06:09 Random Vancomycin 16.5 ug/mL (0-40.0) 11/20/18 05:51 Hepatitis A IgM Ab Non-reactive (NonReactive) 11/12/18 10:01 Hep Bs Antigen Non-reactive (Negative) 11/12/18 10:01 Hep B Core IgM Ab Non-reactive (NonReactive) 11/12/18 10:01 Non-reactive (NonReactive) 11/12/18 10:01 Active Medications - Current Medications Current Medications: Generic Name Dose Route Start Last Admin Trade Name Freq PRN Reason Stop Dose Admin Acetaminophen 650 mg 11/11/18 23:03 11/19/18 20:38 Tylenol [place] 650 mg Q4H PRN Administration Pain, Mild (1-3) Acetaminophen 650 mg 11/20/18 14:32 11/22/18 18:55 Tylenol PO 650 mg Q4H PRN Administration Fever >101 Docusate Sodium 100 mg 11/21/18 22:00 11/23/18 09:57 Colace PO 100 mg BID ISABELLA Administration Epoetin [place] 10,000 unit 11/17/18 12:46 11/21/18 13:43 Procrit IV 10,000 unit TuTa ISABELLA Administration Sodium Chloride 100 mls @ 999 mls/hr 11/13/18 13:19 Nacl 0.9% IV SISSY PRN Hypotension Cefazolin Sodium 1 gm in 50 mls @ 100 mls/hr 11/19/18 18:00 11/22/18 17:32 Ancef/Ns 1 Gm/50 Ml IV 12/13/18 18:29 100 mls/hr QPM ISABELLA Administration Protocol Ondansetron HCl 4 mg 11/11/18 22:59 11/13/18 01:31 Zofran IV 4 mg Q4H PRN Administration Nausea And Vomiting Oxycodone/Acetaminophen 1 tab 11/16/18 16:10 11/16/18 16:33 Percocet 5/325 PO 1 tab Q6H PRN Administration Pain, Moderate (4-6) Polyethylene Glycol 17 gm 11/22/18 10:17 11/22/18 18:43 Miralax 3350 PO 17 gm BID PRN Administration Constipation Sevelamer Carbonate 2,400 mg 11/22/18 16:30 11/22/18 16:17 Renvela PO 2,400 mg AC ISABELLA Administration Sodium Chloride 10 ml 11/12/18 10:00 11/23/18 09:57 Sodium Chloride Flush Syringe 10 Ml IV 10 ml BID ISABELLA Administration Sodium Chloride 10 ml 11/11/18 22:59 11/18/18 13:50 Sodium Chloride Flush Syringe 10 Ml IV 10 ml PRN PRN Administration LINE FLUSH Nutrition/Malnutrition Assess - Dietary Evaluation Nutrition/Malnutrition Findings: Nutrition Notes Start: 11/12/18 14:51 Freq: Status: Active Protocol: Document 11/20/18 10:46 AP (Rec: 11/20/18 11:50 AP [email or web address]) Co-Sign 11/20/18 10:46 LM Nutrition Notes Initial or Follow up Reassessment Current Diagnosis CKD (stage V CKD),Hypertension Other Pertinent Diagnosis ESRD on HD, Hyperparathyroidism, Dysphagia , Pneu Current Diet Renal diet Labs/Tests K WNL BUN 65 Cr 5.4 BG 135 Pertinent Medications Reviewed Height 5 ft 6 in Weight 73.5 kg [place] Body Weight (kg) 64.54 BMI 26.1 Subjective/Other Information Pt was not in room for reassessment, unsure of location. No HD today. Spoke to pt daughter who said pt appetite was poor. Pt didn't have much breakfast (<50%) but daughter reports 50% of dinner tray was consumed. 100% of Glucerna was consumed. Percent of energy/protein needs met: 100%/100% Burn Absent Trauma Absent Minimum of two criteria No #1 Nutrition Diagnosis Inadequate energy intake As Evidenced by Signs and Symptoms Pt consuming 100% of PRO/kcal needs Diagnosis Progress(for reassessment Resolved documentation) Is patient on ventilator? No Is Patient Ambulatory and/or Out of Bed No REE-([facility]-confined to bed) [phone] Additional Notes PRO needs: 88g(1.2g/kg) Fluid needs: 1-1.5L/day Nutrition Intervention Change Diet Order: Continue renal diet Continue ONS Add Supplement/Snack (indicate name/kcal [place] BID /protein ) Provides kCal: 850 Provides Protein (gm) 38 Goal #1 Continue to meet at least 75% of energy and PRO needs via PO and ONS. Anticipated Discharge Needs: Renal Diet and ONS BID Follow-Up By: 11/27/18 Additional Comments F/U for PO/ONS intakes
--- NOTE | 2018-11-23 12:18 | Progress Note ---
Assessment and Plan Cultures: 11/12/2018 wound culture: MSSA 11/12/2018 vas cath culture: MSSA 11/12/2018 blood culture: MSSA 11/15/2018 blood culture: no growth Assessment: 73 yo M PMHx HTN, ESRD on HD, hyperparathyroidism, OA admitted with vascular catheter infection. 1. MSSA bacteremia secondary to Vascular catheter infection: catheter removed. Repeat blood cultures from 11/15/2018 negative. Got new HD cath placed. TTE unremarkable for any vegetations. 2. Pneumonia - vs fluid overload. Completed course of empiric broad spectrum abx. 3. ESRD on HD - renally dose antibiotics. Nephrology following. 4. HTN 5. Hyperparathyroidism. 6. Acute encephalopathy: CT head unremarkable. Etiology unclear. MRI brain unremarkable for acute process. Improving. Recs: continue IV Cefazolin daily qPM will need 4 weeks of post HD Cefazolin upon discharge at the dialysis center ending 12/13/2018 (case management orders already placed) CBC is improving Belinda Braun MD, FACP [facility] ([facility]) C: [phone] O: [phone] F: [phone] Subjective Date of service: 11/23/18 Principal diagnosis: end-stage renal disease with line sepsis Interval history: Awake, alert. No complaints. Low grade fever. Overall mental status appears much improved. Objective - Exam Narrative Exam: Physical Exam: Constitutional: awake, alert, able to answer questions Head, Ears, Nose: Normocephalic, atraumatic. External ears, nose normal Eyes: Conjunctivae/corneas clear. No icterus. No ptosis. Neck: Supple, no meningeal signs Cardiovascular: S1, S2 normal. Respiratory: Good air entry, clear to auscultation bilaterally GI: Soft, non-tender; bowel sounds normal. No peritoneal signs Musculoskeletal: No pedal edema, no cyanosis. Left subclavian HD cath + Skin: No rash or abscess Hem/Lymphatic: No palpable cervical or supraclavicular nodes. No lymphangitis Psych: no agitation Neurological: awake, alert, able to answer questions but slightly confused still - Constitutional Vitals: Vital Signs Temp Pulse Resp BP Pulse Ox 99.3 F 107 H 20 127/50 98 11/23/18 07:41 11/23/18 07:41 11/23/18 07:41 11/23/18 07:41 11/23/18 07:41 Temperature -Last 24 Hours Temperature 99.3 F Temperature 98.7 F Temperature 99.5 F Temperature 100.0 F - Labs CBC & Chem 7: 11/23/18 05:51 11/23/18 05:51 Labs: Abnormal lab results 11/23/18 11/23/18 Range/Units 05:51 05:51 WBC 15.7 H (4.5-11.0) K/mm3 RBC 2.48 L (3.65-5.03) M/mm3 Hgb 7.0 L (11.8-15.2) gm/dl Hct 20.7 L (35.5-45.6) % Plt Count 136 L (140-440) K/mm3 Lymph % (Auto) 9.5 L (13.4-35.0) % Seg Neutrophils % 84.4 H (40.0-70.0) % Seg Neutrophils # 13.2 H (1.8-7.7) K/mm3 Sodium 132 L (137-145) mmol/L Potassium 5.1 H (3.6-5.0) mmol/L Chloride 88.9 L (98-107) mmol/L BUN 102 H (9-20) mg/dL Creatinine 7.5 H D (0.8-1.5) mg/dL Glucose 107 H (75-100) mg/dL
[2018-11-23] MEDS: ceFAZolin/NS 1 GM/50 ML 1 GM/50 ML BAG IV SCH (21:45)
[2018-11-24] MEDS: oxyCODONE /ACETAMINOPHEN 5-325MG TAB PO PRN
[2018-11-24] MEDS: ACETAMINOPHEN 325 MG TAB PO PRN ×2 (00:01→20:37)
[2018-11-24 08:05] LABS: Basophils % (Auto) 0.4 % (0.0-1.8); Eosinophils % (Auto) 0.3 % (0.0-4.3); Hematocrit 26.4 % (35.5-45.6); Hemoglobin 8.9 gm/dl (11.8-15.2); Lymphocytes # (Auto) 0.9 K/mm3 (1.2-5.4); Lymphocytes % (Auto) 9.9 % (13.4-35.0); Mean Corpuscular HGB Conc 34 % (32-34); Mean Corpuscular Volume 84 fl (84-94); Monocytes # (Auto) 0.8 K/mm3 (0.0-0.8); Monocytes % (Auto) 8.2 % (0.0-7.3); Platelet Count 132 K/mm3 (140-440); Red Blood Count 3.15 M/mm3 (3.65-5.03); Red Cell Distribution Width 15.1 % (13.2-15.2)
[2018-11-24] MEDS: SEVELAMER CARBONATE 800 MG TAB PO SCH ×3 (09:00→17:21)
[2018-11-24] MEDS ORDERED: SODIUM CHLORIDE 0.9% 100 ML IV PRN (09:00)
[2018-11-24] MEDS: DOCUSATE SODIUM 100 MG CAP PO SCH ×2 (09:01→22:19)
[2018-11-24 10:53] LABS: Calcium 9.1 mg/dL (8.4-10.2)
--- NOTE | 2018-11-24 11:55 | Progress Note ---
Assessment and Plan - Patient Problems (1) ESRD (end stage renal disease) Current Visit: Yes Status: Chronic Plan to address problem: Orders placed for daily dialysis for three days in the setting of poor clearance. Will monitor. He is more awake and alert since I had last seen him earlier during this admission. (2) Sepsis Current Visit: Yes Status: Acute Qualifiers: Sepsis type: methicillin susceptible Staphylococcus aureus Plan to address problem: MSSA bactermia in the setting of infected RIJ Permcath, s/p removal with repeat cultures x 2 sets negative, with new permcath placed. ID recommendations noted with outpatient IV antibiotics arranged with HD. (3) Pneumonia Current Visit: Yes Status: Acute Qualifiers: Pneumonia type: due to unspecified organism Laterality: unspecified late rality Lung location: unspecified part of lung Qualified Code(s): J18.9 - Pneumonia, unspecified organism Plan to address problem: Improved at this time. Antibiotics dosed per decreased renal function. 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 Would recommend that we hold off on all blood pressure medications at present time. Important that we maintain adequate MAP >65mmHg (5) Secondary hyperparathyroidism (of renal origin) Current Visit: Yes Status: Acute Plan to address problem: Will monitor his Ca, Phos, and iPTH levels inpatient. Continue home phos binder regimen. Subjective Date of service: 11/24/18 Principal diagnosis: end-stage renal disease with line sepsis Interval history: Patient dialyzed yesterday without any acute issues. Has required extra sessions intermittently in order to improve clearance. Objective - Vital Signs Vital signs: Vital Signs - 12hr 11/23/18 11/23/18 11/24/18 23:52 23:57 00:00 Temperature 102.3 F H Pulse Rate 105 H Respiratory 18 Rate Blood Pressure 131/59 Blood Pressure [Right] O2 Sat by Pulse 97 Oximetry 11/24/18 11/24/18 11/24/18 01:00 02:39 02:43 Temperature 98.8 F Pulse Rate 117 H Respiratory 18 20 Rate Blood Pressure Blood Pressure 114/50 [Right] O2 Sat by Pulse 100 Oximetry 11/24/18 11/24/18 11/24/18 07:25 07:34 09:35 Temperature 99.3 F 98.5 F Pulse Rate 102 H 109 H Respiratory 20 18 Rate Blood Pressure 120/62 122/61 Blood Pressure [Right] O2 Sat by Pulse 98 100 Oximetry - General Appearance General appearance: appears stated age, fatigue, frail EENT: ATNC, PERRL Neck: no JVD, no thyromegaly Respiratory: Present: Clear to Ascultation Cardiology: regular, S1S2 Gastrointestinal: normal, normoactive bowel sounds Integumentary: no rash, warm and dry Neurologic: no focal deficit Psychiatric: cooperative - Lab 11/24/18 06:56 11/24/18 06:56 Most recent lab results Calcium 9.1 mg/dL (8.4-10.2) 11/24/18 06:56 Phosphorus 11.30 mg/dL (2.5-4.5) H 11/21/18 04:17 - Allied health notes Allied health notes reviewed: nursing Medications & Allergies - Medications Allergies/Adverse Reactions: Allergies No Known Allergies Allergy (Verified 08/27/18 16:19) Home Medications: Home Medications Medication Instructions Recorded Confirmed Last Taken Type Ferrous Sulfate [Iron Supplement 150 mg PO BID 07/31/13 11/14/18 07/14/18 History 325 Mg tab] [place]-3S/Dha/Epa/Fish Oil/D3 [Fish 1 each PO DAILY 07/31/13 11/14/18 09/02/18 05:20 History Cni-Flfrh-2-Vit D Softgel] amLODIPine [Norvasc] 10 mg PO DAILY 07/31/13 11/14/18 09/02/18 05:20 History cloNIDine [Catapres] 0.2 mg PO BID 07/31/13 11/14/18 09/02/18 05:20 History Carvedilol [Coreg] 6.25 mg PO BID 05/22/18 11/14/18 09/02/18 05:20 History Ergocalciferol (Vitamin D2) 2,000 unit PO DAILY 05/22/18 11/14/18 09/02/18 05:20 History [Vitamin D2] HYDROcodone/APAP 5-325 [[place] 1 each PO Q6HR PRN #25 tablet 09/02/18 11/14/18 Unknown Rx 5-325 mg TAB] Active Medications: Generic Name Dose Route Start Last Admin Trade Name Freq PRN Reason Stop Dose Admin Acetaminophen 650 mg 11/11/18 23:03 11/19/18 20:38 Tylenol [place] 650 mg Q4H PRN Administration Pain, Mild (1-3) Acetaminophen 650 mg 11/20/18 14:32 11/24/18 00:01 Tylenol PO 650 mg Q4H PRN Administration Fever >101 Docusate Sodium 100 mg 11/21/18 22:00 11/24/18 09:01 Colace PO 100 mg BID ISABELLA Administration Epoetin Jeramy 10,000 unit 11/17/18 12:46 11/21/18 13:43 Procrit IV 10,000 unit TuThSa ISABELLA Administration Cefazolin Sodium 1 gm in 50 mls @ 100 mls/hr 11/19/18 18:00 11/23/18 21:45 Ancef/Ns 1 Gm/50 Ml IV 12/13/18 18:29 100 mls/hr QPM ISABELLA Administration Protocol Sodium Chloride 100 mls @ 999 mls/hr 11/24/18 09:00 Nacl 0.9% IV SISSY PRN Hypotension Ondansetron HCl 4 mg 11/11/18 22:59 11/13/18 01:31 Zofran IV 4 mg Q4H PRN Administration Nausea And Vomiting Oxycodone/Acetaminophen 1 tab 11/16/18 16:10 11/24/18 00:00 Percocet 5/325 PO 1 tab Q6H PRN Administration Pain, Moderate (4-6) Polyethylene Glycol 17 gm 11/22/18 10:17 11/22/18 18:43 Miralax 3350 PO 17 gm BID PRN Administration Constipation Sevelamer Carbonate 2,400 mg 11/22/18 16:30 11/24/18 11:49 Renvela PO Not Given AC ISABELLA Sodium Chloride 10 ml 11/12/18 10:00 11/24/18 09:01 Sodium Chloride Flush Syringe 10 Ml IV 10 ml BID ISABELLA Administration Sodium Chloride 10 ml 11/11/18 22:59 11/18/18 13:50 Sodium Chloride Flush Syringe 10 Ml IV 10 ml PRN PRN Administration LINE FLUSH
--- NOTE | 2018-11-24 12:31 | Progress Note ---
Assessment and Plan Cultures: 11/12/2018 wound culture: MSSA 11/12/2018 vas cath culture: MSSA 11/12/2018 blood culture: MSSA 11/15/2018 blood culture: no growth Assessment: 73 yo M PMHx HTN, ESRD on HD, hyperparathyroidism, OA admitted with vascular catheter infection. 1. MSSA bacteremia secondary to Vascular catheter infection: catheter removed. Repeat blood cultures from 11/15/2018 negative. Got new HD cath placed. TTE unremarkable for any vegetations. 2. Pneumonia - vs fluid overload. Completed course of empiric broad spectrum abx. 3. ESRD on HD - renally dose antibiotics. Nephrology following. 4. HTN 5. Hyperparathyroidism. 6. Acute encephalopathy: CT head unremarkable. Etiology unclear. MRI brain unremarkable for acute process. Improving. Recs: continue IV Cefazolin daily qPM given his intermittent fevers, will extend abx to 6 weeks of post HD Cefazolin upon discharge at the dialysis center ending 12/27/2018 (case management orders updated) CBC is much improved Belinda Braun MD, FACP [facility] C: [phone] O: [phone] F: [phone] Subjective Date of service: 11/24/18 Principal diagnosis: end-stage renal disease with line sepsis Interval history: One episode of fever. Seen at dialysis. Doing better. Still somewhat confused, but better than 2 days ago. Objective - Exam Narrative Exam: Physical Exam: Constitutional: awake, alert, able to answer questions Head, Ears, Nose: Normocephalic, atraumatic. External ears, nose normal Eyes: Conjunctivae/corneas clear. No icterus. No ptosis. Neck: Supple, no meningeal signs Cardiovascular: S1, S2 normal. Respiratory: Good air entry, clear to auscultation bilaterally GI: Soft, non-tender; bowel sounds normal. No peritoneal signs Musculoskeletal: No pedal edema, no cyanosis. Left subclavian HD cath + Skin: No rash or abscess Hem/Lymphatic: No palpable cervical or supraclavicular nodes. No lymphangitis Psych: no agitation Neurological: awake, alert, able to answer questions but still confused - Constitutional Vitals: Vital Signs Temp Pulse Resp BP Pulse Ox 98.5 F 103 H 18 129/62 100 11/24/18 09:35 11/24/18 11:45 11/24/18 09:35 11/24/18 11:45 11/24/18 07:34 Temperature -Last 24 Hours Temperature 98.5 F Temperature 99.3 F Temperature 98.8 F Temperature 102.3 F Temperature 98.5 F Temperature 99.0 F - Labs CBC & Chem 7: 11/24/18 06:56 11/24/18 06:56 Labs: Abnormal lab results 11/23/18 11/24/18 11/24/18 Range/Units 23:24 06:56 06:56 RBC 3.15 L (3.65-5.03) M/mm3 Hgb 8.9 L (11.8-15.2) gm/dl Hct 26.4 L (35.5-45.6) % Plt Count 132 L (140-440) K/mm3 Lymph % (Auto) 9.9 L (13.4-35.0) % [place] % (Auto) 8.2 H (0.0-7.3) % Lymph # 0.9 L (1.2-5.4) K/mm3 Seg Neutrophils % 81.2 H (40.0-70.0) % Sodium 135 L (137-145) mmol/L Chloride 96.8 L (98-107) mmol/L BUN 41 H (9-20) mg/dL Creatinine 4.0 H (0.8-1.5) mg/dL Glucose 113 H (75-100) mg/dL POC Glucose 232 H (70-105)
[2018-11-24] MEDS: EPOETIN ALFA 10,000 UNIT/1 ML INJ IV SCH (13:15)
[2018-11-24] MEDS ORDERED: SODIUM CHLORIDE*PRIMING MACHINE ONLY FOR DIALYSIS MC ONE (13:41)
[2018-11-24] MEDS: ceFAZolin/NS 1 GM/50 ML 1 GM/50 ML BAG IV SCH (17:21)
--- NOTE | 2018-11-24 17:54 | Progress Note ---
Assessment and Plan Assessment and plan: --Toxic Metabolic encephalopathy Probably secondary to sepsis, end-stage renal disease and uremia CT head negative, closely monitor, MRI brain negative. --MSSA bacteremia secondary to Vascular catheter infection Repeat blood cultures from 11/15/2018 negative. Got new HD cath placed. TTE unremarkable for any vegetations. Patient still with significant intermittent fever --Sepsis. As above. Continue antibiotics per ID. Continue to monitor his fever curve --Anemia of CKD Continue erythropoietin. Consider PRBCs with hemodialysis. --ESRD on dialysis; nephrology following Avoid nephrotoxins, HD per schedule --Community-acquired pneumonia: Empiric antibiotics, f/u cultures --History of Dysphagia; speech evaluated the patient Cleared for oral diet, no symptoms of dysphagia --Hypertension Closely monitor blood pressures and adjust as needed --Thrombocytopenia; no evidence of bleeding Closely monitor platelets, consult hematology if needed --DVT prophylaxis; heparin renal dose. --Full code; Consults and recommendations noted and appreciated History Interval history: Patient seen and examined medical records reviewed Patient received hemodialysis today feels better Complaints of generalized weakness Alert awake responding to simple questions appropriately Family member at the bedside Vital signs noted Hospitalist Physical - Constitutional Vitals: Temp Pulse Resp BP Pulse Ox 98.4 F 107 H 18 130/66 100 11/24/18 13:45 11/24/18 13:45 11/24/18 13:45 11/24/18 13:45 11/24/18 07:34 General appearance: Present: no acute distress, well-nourished, other (remains confused but much improved.) - EENT Eyes: Present: PERRL, EOM intact - Neck Neck: Present: supple, normal ROM - Respiratory Respiratory effort: normal Respiratory: bilateral: diminished, negative: rales, rhonchi, wheezing - Cardiovascular Rhythm: regular Heart Sounds: Present: S1 & S2 - Extremities Extremities: no ischemia, No edema - Abdominal General gastrointestinal: soft, non-tender, non-distended, normal bowel sounds - Integumentary Integumentary: Present: clear, warm - Psychiatric Psychiatric: appropriate mood/affect, cooperative - Neurologic Neurologic: CNII-XII intact, moves all extremities Results - Labs CBC & Chem 7: 11/24/18 06:56 11/24/18 06:56 Labs: Laboratory Last Values WBC 9.2 K/mm3 (4.5-11.0) 11/24/18 06:56 RBC 3.15 M/mm3 (3.65-5.03) L 11/24/18 06:56 Hgb 8.9 gm/dl (11.8-15.2) L 11/24/18 06:56 Hct 26.4 % (35.5-45.6) L 11/24/18 06:56 MCV 84 fl (84-94) 11/24/18 06:56 MCH 28 pg (28-32) 11/24/18 06:56 MCHC 34 % (32-34) 11/24/18 06:56 RDW 15.1 % (13.2-15.2) 11/24/18 06:56 Plt Count 132 K/mm3 (140-440) L 11/24/18 06:56 Lymph % (Auto) 9.9 % (13.4-35.0) L 11/24/18 06:56 [place] % (Auto) 8.2 % (0.0-7.3) H 11/24/18 06:56 Eos % (Auto) 0.3 % (0.0-4.3) 11/24/18 06:56 Baso % (Auto) 0.4 % (0.0-1.8) 11/24/18 06:56 Lymph # 0.9 K/mm3 (1.2-5.4) L 11/24/18 06:56 [place] # 0.8 K/mm3 (0.0-0.8) 11/24/18 06:56 Eos # 0.0 K/mm3 (0.0-0.4) 11/24/18 06:56 Baso # 0.0 K/mm3 (0.0-0.1) 11/24/18 06:56 Add Manual Diff Complete 11/17/18 06:09 Total Counted 100 11/17/18 06:09 Seg Neutrophils % 81.2 % (40.0-70.0) H 11/24/18 06:56 Seg Neuts % (Manual) 83.0 % (40.0-70.0) H 11/17/18 06:09 3.0 % 11/17/18 06:09 7.0 % (13.4-35.0) L 11/17/18 06:09 Reactive Lymphs % (Man) 0 % 11/17/18 06:09 4.0 % (0.0-7.3) 11/17/18 06:09 0 % (0.0-4.3) 11/17/18 06:09 0 % (0.0-1.8) 11/17/18 06:09 3.0 % 11/17/18 06:09 0 % 11/17/18 06:09 0 % 11/17/18 06:09 0 % 11/17/18 06:09 Nucleated RBC % Not Reportable 11/17/18 06:09 Seg Neutrophils # 7.5 K/mm3 (1.8-7.7) 11/24/18 06:56 Seg Neutrophils # Man 13.1 K/mm3 (1.8-7.7) H 11/17/18 06:09 Band Neutrophils # 0.5 K/mm3 11/17/18 06:09 1.1 K/mm3 (1.2-5.4) L 11/17/18 06:09 Abs React Lymphs (Man) 0.0 K/mm3 11/17/18 06:09 0.6 K/mm3 (0.0-0.8) 11/17/18 06:09 0.0 K/mm3 (0.0-0.4) 11/17/18 06:09 0.0 K/mm3 (0.0-0.1) 11/17/18 06:09 0.5 K/mm3 11/17/18 06:09 0.0 K/mm3 11/17/18 06:09 0.0 K/mm3 11/17/18 06:09 Blast Cells # 0.0 K/mm3 11/17/18 06:09 WBC Morphology Not Reportable 11/17/18 06:09 Hypersegmented Neuts Not Reportable 11/17/18 06:09 Hyposegmented Neuts Not Reportable 11/17/18 06:09 Hypogranular Neuts Not Reportable 11/17/18 06:09 Not Reportable 11/17/18 06:09 Not Reportable 11/17/18 06:09 Not Reportable 11/17/18 06:09 Not Reportable 11/17/18 06:09 Not Reportable 11/17/18 06:09 Not Reportable 11/17/18 06:09 Consistent w auto 11/17/18 06:09 Not Reportable 11/17/18 06:09 Plt Clumps, EDTA Not Reportable 11/17/18 06:09 Few 11/17/18 06:09 Not Reportable 11/17/18 06:09 Not Reportable 11/17/18 06:09 Plt Morphology Comment Not Reportable 11/17/18 06:09 RBC Morphology Not Reportable 11/17/18 06:09 Dimorphic RBCs Not Reportable 11/17/18 06:09 Few 11/17/18 06:09 Few 11/17/18 06:09 Not Reportable 11/17/18 06:09 Not Reportable 11/17/18 06:09 Not Reportable 11/17/18 06:09 Not Reportable 11/17/18 06:09 Not Reportable 11/17/18 06:09 Not Reportable 11/17/18 06:09 Not Reportable 11/17/18 06:09 1+ 11/17/18 06:09 Few 11/17/18 06:09 Not Reportable 11/17/18 06:09 Not Reportable 11/17/18 06:09 Not Reportable 11/17/18 06:09 Not Reportable 11/17/18 06:09 Not Reportable 11/17/18 06:09 Not Reportable 11/17/18 06:09 Not Reportable 11/17/18 06:09 Not Reportable 11/17/18 06:09 Acanthocytes (Spur) Not Reportable 11/17/18 06:09 Rouleaux Not Reportable 11/17/18 06:09 Not Reportable 11/17/18 06:09 Not Reportable 11/17/18 06:09 Not Reportable 11/17/18 06:09 Not Reportable 11/17/18 06:09 Hem Pathologist Commnt No 11/17/18 06:09 Sodium 135 mmol/L (137-145) L 11/24/18 06:56 Potassium 4.5 mmol/L (3.6-5.0) 11/24/18 06:56 Chloride 96.8 mmol/L (98-107) L 11/24/18 06:56 Carbon Dioxide 24 mmol/L (22-30) 11/24/18 06:56 19 mmol/L 11/24/18 06:56 BUN 41 mg/dL (9-20) H 11/24/18 06:56 4.0 mg/dL (0.8-1.5) H 11/24/18 06:56 Estimated GFR 18 ml/min 11/24/18 06:56 10 % 11/24/18 06:56 Glucose 113 mg/dL (75-100) H 11/24/18 06:56 POC Glucose 232 (70-105) H 11/23/18 23:24 Lactic Acid 2.00 mmol/L (0.7-2.0) 11/11/18 17:45 Calcium 9.1 mg/dL (8.4-10.2) 11/24/18 06:56 Phosphorus 11.30 mg/dL (2.5-4.5) H 11/21/18 04:17 0.80 mg/dL (0.1-1.2) 11/11/18 17:45 AST 35 units/L (5-40) 11/11/18 17:45 ALT 12 units/L (7-56) 11/11/18 17:45 88 units/L (35-129) 11/11/18 17:45 68.0 umol/L (25-60) H 11/17/18 11:41 363 units/L (55-170) H 11/12/18 03:33 CK-MB (CK-2) 4.0 ng/mL (0.0-4.0) 11/12/18 03:33 CK-MB (CK-2) Rel Index 1.1 (0-4) 11/12/18 03:33 0.274 ng/mL (0.00-0.029) H* 11/12/18 03:33 8.0 g/dL (6.3-8.2) 11/11/18 17:45 3.1 g/dL (3.9-5) L 11/11/18 17:45 0.6 % 11/11/18 17:45 Triglycerides 380 mg/dL (2-149) H 11/11/18 17:45 Cholesterol 117 mg/dL (50-199) 11/11/18 17:45 8 mg/dL (50-130) L 11/11/18 17:45 8 mg/dL (40-59) L 11/11/18 17:45 14.62 % 11/11/18 17:45 Vitamin B12 > 2000 pg/mL (211-911) H 11/17/18 06:09 > 20 ng/mL (7.3-26.0) 11/17/18 06:09 Random Vancomycin 16.5 ug/mL (0-40.0) 11/20/18 05:51 Hepatitis A IgM Ab Non-reactive (NonReactive) 11/12/18 10:01 Hep Bs Antigen Non-reactive (Negative) 11/12/18 10:01 Hep B Core IgM Ab Non-reactive (NonReactive) 11/12/18 10:01 Non-reactive (NonReactive) 11/12/18 10:01 Active Medications - Current Medications Current Medications: Generic Name Dose Route Start Last Admin Trade Name Freq PRN Reason Stop Dose Admin Acetaminophen 650 mg 11/11/18 23:03 11/19/18 20:38 Tylenol DC 650 mg Q4H PRN Administration Pain, Mild (1-3) Acetaminophen 650 mg 11/20/18 14:32 11/24/18 00:01 Tylenol PO 650 mg Q4H PRN Administration Fever >101 Docusate Sodium 100 mg 11/21/18 22:00 11/24/18 09:01 Colace PO 100 mg BID ISABELLA Administration Epoetin Jeramy 10,000 unit 11/17/18 12:46 11/24/18 13:15 Procrit IV 10,000 unit TuThSa ISABELLA Administration Cefazolin Sodium 1 gm in 50 mls @ 100 mls/hr 11/19/18 18:00 11/24/18 17:21 Ancef/Ns 1 Gm/50 Ml IV 12/13/18 18:29 100 mls/hr QPM ISABELLA Administration Protocol Sodium Chloride 100 mls @ 999 mls/hr 11/24/18 09:00 Nacl 0.9% IV SISSY PRN Hypotension Ondansetron HCl 4 mg 11/11/18 22:59 11/13/18 01:31 Zofran IV 4 mg Q4H PRN Administration Nausea And Vomiting Oxycodone/Acetaminophen 1 tab 11/16/18 16:10 11/24/18 00:00 Percocet 5/325 PO 1 tab Q6H PRN Administration Pain, Moderate (4-6) Polyethylene Glycol 17 gm 11/22/18 10:17 11/22/18 18:43 Miralax 3350 PO 17 gm BID PRN Administration Constipation Sevelamer Carbonate 2,400 mg 11/22/18 16:30 11/24/18 17:21 Renvela PO 2,400 mg AC ISABELLA Administration Sodium Chloride 10 ml 11/12/18 10:00 11/24/18 09:01 Sodium Chloride Flush Syringe 10 Ml IV 10 ml BID ISABELLA Administration Sodium Chloride 10 ml 11/11/18 22:59 11/18/18 13:50 Sodium Chloride Flush Syringe 10 Ml IV 10 ml PRN PRN Administration LINE FLUSH Nutrition/Malnutrition Assess - Dietary Evaluation Nutrition/Malnutrition Findings: Nutrition Notes Start: 11/12/18 14:51 Freq: Status: Active Protocol: Document 11/20/18 10:46 AP (Rec: 11/20/18 11:50 AP [email or web address]) Co-Sign 11/20/18 10:46 LM Nutrition Notes Initial or Follow up Reassessment Current Diagnosis CKD (stage V CKD),Hypertension Other Pertinent Diagnosis ESRD on HD, Hyperparathyroidism, Dysphagia , Pneu Current Diet Renal diet Labs/Tests K WNL BUN 65 Cr 5.4 BG 135 Pertinent Medications Reviewed Height 5 ft 6 in Weight 73.5 kg Ona Body Weight (kg) 64.54 BMI 26.1 Subjective/Other Information Pt was not in room for reassessment, unsure of location. No HD today. Spoke to pt daughter who said pt appetite was poor. Pt didn't have much breakfast (<50%) but daughter reports 50% of dinner tray was consumed. 100% of Glucerna was consumed. Percent of energy/protein needs met: 100%/100% Burn Absent Trauma Absent Minimum of two criteria No #1 Nutrition Diagnosis Inadequate energy intake As Evidenced by Signs and Symptoms Pt consuming 100% of PRO/kcal needs Diagnosis Progress(for reassessment Resolved documentation) Is patient on ventilator? No Is Patient Ambulatory and/or Out of Bed No REE-([facility]-confined to bed) [phone] Additional Notes PRO needs: 88g(1.2g/kg) Fluid needs: 1-1.5L/day Nutrition Intervention Change Diet Order: Continue renal diet Continue ONS Add Supplement/Snack (indicate name/kcal Nepro BID /protein ) Provides kCal: 850 Provides Protein (gm) 38 Goal #1 Continue to meet at least 75% of energy and PRO needs via PO and ONS. Anticipated Discharge Needs: Renal Diet and ONS BID Follow-Up By: 11/27/18 Additional Comments F/U for PO/ONS intakes
[2018-11-25] MEDS: ACETAMINOPHEN 325 MG TAB PO PRN ×2 (02:22→21:27)
[2018-11-25] MEDS: SEVELAMER CARBONATE 800 MG TAB PO SCH ×3 (07:45→17:19)
--- NOTE | 2018-11-25 08:39 | Progress Note ---
Assessment and Plan Assessment and plan: --Toxic Metabolic encephalopathy Probably secondary to sepsis, end-stage renal disease and uremia CT head negative, closely monitor, MRI brain negative. --MSSA bacteremia secondary to Vascular catheter infection Repeat blood cultures from 11/15/2018 negative. Got new HD cath placed. TTE unremarkable for any vegetations. Patient still with significant intermittent fever ID recommend to continue total 6 weeks of post HD Cefazolin upon discharge at the dialysis center ending 12/27/2018 (case management orders updated) --Sepsis. As above. Continue antibiotics per ID. Continue to monitor his fever curve. --Persistent fevers; ID following, long-term antibiotics as mentioned above --Anemia of CKD Continue erythropoietin. Consider PRBCs with hemodialysis. --ESRD on dialysis; nephrology following Avoid nephrotoxins, HD per schedule --Community-acquired pneumonia: Empiric antibiotics, f/u cultures --History of Dysphagia; speech evaluated the patient Cleared for oral diet, no symptoms of dysphagia --Hypertension Closely monitor blood pressures and adjust as needed --Thrombocytopenia; no evidence of bleeding Closely monitor platelets, consult hematology if needed --DVT prophylaxis; heparin renal dose. --Full code; Continue current management Plan of care reviewed with the patient and the family member at the bedside History Interval history: Patient seen and examined medical records reviewed Patient remains febrile Vital signs noted Hospitalist Physical - Constitutional Vitals: Temp Pulse Resp BP Pulse Ox 98.6 F 115 H 22 109/52 98 11/25/18 06:36 11/25/18 02:14 11/25/18 02:14 11/25/18 02:14 11/25/18 08:29 General appearance: Present: no acute distress, well-nourished, other (remains confused but much improved.) - EENT Eyes: Present: PERRL, EOM intact - Neck Neck: Present: supple, normal ROM - Respiratory Respiratory effort: normal Respiratory: bilateral: diminished, rhonchi, negative: rales, wheezing - Cardiovascular Rhythm: regular Heart Sounds: Present: S1 & S2 - Extremities Extremities: no ischemia, No edema - Abdominal General gastrointestinal: soft, non-tender, non-distended, normal bowel sounds - Integumentary Integumentary: Present: clear, warm - Psychiatric Psychiatric: appropriate mood/affect, cooperative - Neurologic Neurologic: CNII-XII intact, moves all extremities Results - Labs CBC & Chem 7: 11/24/18 06:56 11/24/18 06:56 Labs: Laboratory Last Values WBC 9.2 K/mm3 (4.5-11.0) 11/24/18 06:56 RBC 3.15 M/mm3 (3.65-5.03) L 11/24/18 06:56 Hgb 8.9 gm/dl (11.8-15.2) L 11/24/18 06:56 Hct 26.4 % (35.5-45.6) L 11/24/18 06:56 MCV 84 fl (84-94) 11/24/18 06:56 MCH 28 pg (28-32) 11/24/18 06:56 MCHC 34 % (32-34) 11/24/18 06:56 RDW 15.1 % (13.2-15.2) 11/24/18 06:56 Plt Count 132 K/mm3 (140-440) L 11/24/18 06:56 Lymph % (Auto) 9.9 % (13.4-35.0) L 11/24/18 06:56 [place] % (Auto) 8.2 % (0.0-7.3) H 11/24/18 06:56 Eos % (Auto) 0.3 % (0.0-4.3) 11/24/18 06:56 Baso % (Auto) 0.4 % (0.0-1.8) 11/24/18 06:56 Lymph # 0.9 K/mm3 (1.2-5.4) L 11/24/18 06:56 [place] # 0.8 K/mm3 (0.0-0.8) 11/24/18 06:56 Eos # 0.0 K/mm3 (0.0-0.4) 11/24/18 06:56 Baso # 0.0 K/mm3 (0.0-0.1) 11/24/18 06:56 Add Manual Diff Complete 11/17/18 06:09 Total Counted 100 11/17/18 06:09 Seg Neutrophils % 81.2 % (40.0-70.0) H 11/24/18 06:56 Seg Neuts % (Manual) 83.0 % (40.0-70.0) H 11/17/18 06:09 3.0 % 11/17/18 06:09 7.0 % (13.4-35.0) L 11/17/18 06:09 Reactive Lymphs % (Man) 0 % 11/17/18 06:09 4.0 % (0.0-7.3) 11/17/18 06:09 0 % (0.0-4.3) 11/17/18 06:09 0 % (0.0-1.8) 11/17/18 06:09 3.0 % 11/17/18 06:09 0 % 11/17/18 06:09 0 % 11/17/18 06:09 0 % 11/17/18 06:09 Nucleated RBC % Not Reportable 11/17/18 06:09 Seg Neutrophils # 7.5 K/mm3 (1.8-7.7) 11/24/18 06:56 Seg Neutrophils # Man 13.1 K/mm3 (1.8-7.7) H 11/17/18 06:09 Band Neutrophils # 0.5 K/mm3 11/17/18 06:09 1.1 K/mm3 (1.2-5.4) L 11/17/18 06:09 Abs React Lymphs (Man) 0.0 K/mm3 11/17/18 06:09 0.6 K/mm3 (0.0-0.8) 11/17/18 06:09 0.0 K/mm3 (0.0-0.4) 11/17/18 06:09 0.0 K/mm3 (0.0-0.1) 11/17/18 06:09 0.5 K/mm3 11/17/18 06:09 0.0 K/mm3 11/17/18 06:09 0.0 K/mm3 11/17/18 06:09 Blast Cells # 0.0 K/mm3 11/17/18 06:09 WBC Morphology Not Reportable 11/17/18 06:09 Hypersegmented Neuts Not Reportable 11/17/18 06:09 Hyposegmented Neuts Not Reportable 11/17/18 06:09 Hypogranular Neuts Not Reportable 11/17/18 06:09 Not Reportable 11/17/18 06:09 Not Reportable 11/17/18 06:09 Not Reportable 11/17/18 06:09 Not Reportable 11/17/18 06:09 Not Reportable 11/17/18 06:09 Not Reportable 11/17/18 06:09 Consistent w auto 11/17/18 06:09 Not Reportable 11/17/18 06:09 Plt Clumps, EDTA Not Reportable 11/17/18 06:09 Few 11/17/18 06:09 Not Reportable 11/17/18 06:09 Not Reportable 11/17/18 06:09 Plt Morphology Comment Not Reportable 11/17/18 06:09 RBC Morphology Not Reportable 11/17/18 06:09 Dimorphic RBCs Not Reportable 11/17/18 06:09 Few 11/17/18 06:09 Few 11/17/18 06:09 Not Reportable 11/17/18 06:09 Not Reportable 11/17/18 06:09 Not Reportable 11/17/18 06:09 Not Reportable 11/17/18 06:09 Not Reportable 11/17/18 06:09 Not Reportable 11/17/18 06:09 Not Reportable 11/17/18 06:09 1+ 11/17/18 06:09 Few 11/17/18 06:09 Not Reportable 11/17/18 06:09 Not Reportable 11/17/18 06:09 Not Reportable 11/17/18 06:09 Not Reportable 11/17/18 06:09 Not Reportable 11/17/18 06:09 Not Reportable 11/17/18 06:09 Not Reportable 11/17/18 06:09 Not Reportable 11/17/18 06:09 Acanthocytes (Spur) Not Reportable 11/17/18 06:09 Rouleaux Not Reportable 11/17/18 06:09 Not Reportable 11/17/18 06:09 Not Reportable 11/17/18 06:09 Not Reportable 11/17/18 06:09 Not Reportable 11/17/18 06:09 Hem Pathologist Commnt No 11/17/18 06:09 Sodium 135 mmol/L (137-145) L 11/24/18 06:56 Potassium 4.5 mmol/L (3.6-5.0) 11/24/18 06:56 Chloride 96.8 mmol/L (98-107) L 11/24/18 06:56 Carbon Dioxide 24 mmol/L (22-30) 11/24/18 06:56 19 mmol/L 11/24/18 06:56 BUN 41 mg/dL (9-20) H 11/24/18 06:56 4.0 mg/dL (0.8-1.5) H 11/24/18 06:56 Estimated GFR 18 ml/min 11/24/18 06:56 10 % 11/24/18 06:56 Glucose 113 mg/dL (75-100) H 11/24/18 06:56 POC Glucose 232 (70-105) H 11/23/18 23:24 Lactic Acid 2.00 mmol/L (0.7-2.0) 11/11/18 17:45 Calcium 9.1 mg/dL (8.4-10.2) 11/24/18 06:56 Phosphorus 11.30 mg/dL (2.5-4.5) H 11/21/18 04:17 0.80 mg/dL (0.1-1.2) 11/11/18 17:45 AST 35 units/L (5-40) 11/11/18 17:45 ALT 12 units/L (7-56) 11/11/18 17:45 88 units/L (35-129) 11/11/18 17:45 68.0 umol/L (25-60) H 11/17/18 11:41 363 units/L (55-170) H 11/12/18 03:33 CK-MB (CK-2) 4.0 ng/mL (0.0-4.0) 11/12/18 03:33 CK-MB (CK-2) Rel Index 1.1 (0-4) 11/12/18 03:33 0.274 ng/mL (0.00-0.029) H* 11/12/18 03:33 8.0 g/dL (6.3-8.2) 11/11/18 17:45 3.1 g/dL (3.9-5) L 11/11/18 17:45 0.6 % 11/11/18 17:45 Triglycerides 380 mg/dL (2-149) H 11/11/18 17:45 Cholesterol 117 mg/dL (50-199) 11/11/18 17:45 8 mg/dL (50-130) L 11/11/18 17:45 8 mg/dL (40-59) L 11/11/18 17:45 14.62 % 11/11/18 17:45 Vitamin B12 > 2000 pg/mL (211-911) H 11/17/18 06:09 > 20 ng/mL (7.3-26.0) 11/17/18 06:09 Random Vancomycin 16.5 ug/mL (0-40.0) 11/20/18 05:51 Hepatitis A IgM Ab Non-reactive (NonReactive) 11/12/18 10:01 Hep Bs Antigen Non-reactive (Negative) 11/12/18 10:01 Hep B Core IgM Ab Non-reactive (NonReactive) 11/12/18 10:01 Non-reactive (NonReactive) 11/12/18 10:01 Active Medications - Current Medications Current Medications: Generic Name Dose Route Start Last Admin Trade Name Freq PRN Reason Stop Dose Admin Acetaminophen 650 mg 11/11/18 23:03 11/19/18 20:38 Tylenol [place] 650 mg Q4H PRN Administration Pain, Mild (1-3) Acetaminophen 650 mg 11/20/18 14:32 11/25/18 02:22 Tylenol PO 650 mg Q4H PRN Administration Fever >101 Docusate Sodium 100 mg 11/21/18 22:00 11/24/18 22:19 Colace PO 100 mg BID ISABELLA Administration Epoetin Jeramy 10,000 unit 11/17/18 12:46 11/24/18 13:15 Procrit IV 10,000 unit TuThSa ISABELLA Administration Cefazolin Sodium 1 gm in 50 mls @ 100 mls/hr 11/19/18 18:00 11/24/18 17:21 Ancef/Ns 1 Gm/50 Ml IV 12/27/18 18:29 100 mls/hr QPM ISABELLA Administration Protocol Sodium Chloride 100 mls @ 999 mls/hr 11/24/18 09:00 Nacl 0.9% IV SISSY PRN Hypotension Ondansetron HCl 4 mg 11/11/18 22:59 11/13/18 01:31 Zofran IV 4 mg Q4H PRN Administration Nausea And Vomiting Oxycodone/Acetaminophen 1 tab 11/16/18 16:10 11/24/18 00:00 Percocet 5/325 PO 1 tab Q6H PRN Administration Pain, Moderate (4-6) Polyethylene Glycol 17 gm 11/22/18 10:17 11/22/18 18:43 Miralax 3350 PO 17 gm BID PRN Administration Constipation Sevelamer Carbonate 2,400 mg 11/22/18 16:30 11/24/18 17:21 Renvela PO 2,400 mg AC ISABELLA Administration Sodium Chloride 10 ml 11/12/18 10:00 11/24/18 22:19 Sodium Chloride Flush Syringe 10 Ml IV 10 ml BID ISABELLA Administration Sodium Chloride 10 ml 11/11/18 22:59 11/18/18 13:50 Sodium Chloride Flush Syringe 10 Ml IV 10 ml PRN PRN Administration LINE FLUSH Nutrition/Malnutrition Assess - Dietary Evaluation Nutrition/Malnutrition Findings: Nutrition Notes Start: 11/12/18 14:51 Freq: Status: Active Protocol: Document 11/20/18 10:46 AP (Rec: 11/20/18 11:50 AP [email or web address]) Co-Sign 11/20/18 10:46 LM Nutrition Notes Initial or Follow up Reassessment Current Diagnosis CKD (stage V CKD),Hypertension Other Pertinent Diagnosis ESRD on HD, Hyperparathyroidism, Dysphagia , Pneu Current Diet Renal diet Labs/Tests K WNL BUN 65 Cr 5.4 BG 135 Pertinent Medications Reviewed Height 5 ft 6 in Weight 73.5 kg [place] Body Weight (kg) 64.54 BMI 26.1 Subjective/Other Information Pt was not in room for reassessment, unsure of location. No HD today. Spoke to pt daughter who said pt appetite was poor. Pt didn't have much breakfast (<50%) but daughter reports 50% of dinner tray was consumed. 100% of Glucerna was consumed. Percent of energy/protein needs met: 100%/100% Burn Absent Trauma Absent Minimum of two criteria No #1 Nutrition Diagnosis Inadequate energy intake As Evidenced by Signs and Symptoms Pt consuming 100% of PRO/kcal needs Diagnosis Progress(for reassessment Resolved documentation) Is patient on ventilator? No Is Patient Ambulatory and/or Out of Bed No REE-([facility]-confined to bed) [phone] Additional Notes PRO needs: 88g(1.2g/kg) Fluid needs: 1-1.5L/day Nutrition Intervention Change Diet Order: Continue renal diet Continue ONS Add Supplement/Snack (indicate name/kcal Nepro BID /protein ) Provides kCal: 850 Provides Protein (gm) 38 Goal #1 Continue to meet at least 75% of energy and PRO needs via PO and ONS. Anticipated Discharge Needs: Renal Diet and ONS BID Follow-Up By: 11/27/18 Additional Comments F/U for PO/ONS intakes
[2018-11-25] MEDS: DOCUSATE SODIUM 100 MG CAP PO SCH ×2 (10:53→21:28)
[2018-11-25] MEDS: EPOETIN ALFA 10,000 UNIT/1 ML INJ IV SCH (11:42)
--- NOTE | 2018-11-25 11:43 | Progress Note ---
Assessment and Plan Cultures: 11/12/2018 wound culture: MSSA 11/12/2018 vas cath culture: MSSA 11/12/2018 blood culture: MSSA 11/15/2018 blood culture: no growth 11/24/2018 blood culture: in process Assessment: 73 yo M PMHx HTN, ESRD on HD, hyperparathyroidism, OA admitted with vascular catheter infection. 1. MSSA bacteremia secondary to Vascular catheter infection: catheter removed. Repeat blood cultures from 11/15/2018 negative. Got new HD cath placed. TTE unremarkable for any vegetations. Intermittent fevers +, clinically seems to be improving. 2. Pneumonia - vs fluid overload. Completed course of empiric broad spectrum abx. 3. ESRD on HD - renally dose antibiotics. Nephrology following. 4. HTN 5. Hyperparathyroidism. 6. Acute encephalopathy: CT head unremarkable. Etiology unclear. MRI brain unremarkable for acute process. Improving. Recs: continue IV Cefazolin daily qPM continue total 6 weeks of post HD Cefazolin upon discharge at the dialysis center ending 12/27/2018 (case management orders updated) follow up blood cultures from 11/24/2018 ID clinic follow up in 2 weeks Belinda Braun MD, FACP [facility] ([facility] C: [phone] O: [phone] F: [phone] Subjective Date of service: 11/25/18 Principal diagnosis: end-stage renal disease with line sepsis Interval history: One fever of 101F. Seen at dialysis. Denies any complaints. Mental status continues to improve. Objective - Exam Narrative Exam: Physical Exam: Constitutional: awake, alert, no distress. Head, Ears, Nose: Normocephalic, atraumatic. External ears, nose normal Eyes: Conjunctivae/corneas clear. No icterus. No ptosis. Neck: Supple, no meningeal signs Cardiovascular: S1, S2 normal. Respiratory: Good air entry, clear to auscultation bilaterally GI: Soft, non-tender; bowel sounds normal. No peritoneal signs Musculoskeletal: No pedal edema, no cyanosis. Left subclavian HD cath + Skin: No rash or abscess Hem/Lymphatic: No palpable cervical or supraclavicular nodes. No lymphangitis Psych: no agitation Neurological: awake, alert, oriented to place, person and time (was able to tell me the year 2018,couldn't tell me exact date) - Constitutional Vitals: Vital Signs Temp Pulse Resp BP Pulse Ox 98.8 F 99 H 22 115/73 98 11/25/18 07:55 11/25/18 11:15 11/25/18 07:55 11/25/18 11:15 11/25/18 08:29 Temperature -Last 24 Hours Temperature 98.8 F Temperature 98.6 F Temperature 100.6 F Temperature 101.0 F Temperature 98.4 F - Labs CBC & Chem 7: 11/24/18 06:56 11/24/18 06:56
--- NOTE | 2018-11-25 12:54 | Progress Note ---
Assessment and Plan - Patient Problems (1) ESRD (end stage renal disease) Current Visit: Yes Status: Chronic Plan to address problem: Orders placed for daily dialysis for three days in the setting of poor clearance. He is receiving his third consecutive HD sesseion this week. Will monitor. He is more awake and alert since I had last seen him earlier during this admission. (2) Sepsis Current Visit: Yes Status: Acute Qualifiers: Sepsis type: methicillin susceptible Staphylococcus aureus Plan to address problem: MSSA bactermia in the setting of infected RIJ Permcath, s/p removal with repeat cultures x 2 sets negative, with new permcath placed. ID recommendations noted with outpatient IV antibiotics arranged with HD. (3) Pneumonia Current Visit: Yes Status: Acute Qualifiers: Pneumonia type: due to unspecified organism Laterality: unspecified laterality Lung location: unspecified part of lung Qualified Code(s): J18.9 - Pneumonia, unspecified organism Plan to address problem: Improved at this time. Antibiotics dosed per decreased renal function. 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 Would recommend that we hold off on all blood pressure medications at present time. Important that we maintain adequate MAP >65mmHg (5) Secondary hyperparathyroidism (of renal origin) Current Visit: Yes Status: Acute Plan to address problem: Will monitor his Ca, Phos, and iPTH levels inpatient. Continue home phos binder regimen. Subjective Date of service: 11/25/18 Principal diagnosis: end-stage renal disease with line sepsis Interval history: Seen at HD this am, has done three consecutive sessions of HD. Will plan for next session on Friday. No acute issues this am on HD. Objective - Vital Signs Vital signs: Vital Signs - 12hr 11/25/18 11/25/18 11/25/18 02:14 06:36 07:55 Temperature 100.6 F H 98.6 F 98.8 F Pulse Rate 115 H 104 H Respiratory 22 22 Rate Blood Pressure 109/52 100/62 O2 Sat by Pulse 98 Oximetry 11/25/18 11/25/18 11/25/18 08:00 08:15 08:29 Temperature Pulse Rate 113 H 99 H Respiratory Rate Blood Pressure 121/56 111/57 O2 Sat by Pulse 98 Oximetry 11/25/18 11/25/18 11/25/18 08:30 08:45 09:00 Temperature Pulse Rate 100 H 111 H 88 Respiratory Rate Blood Pressure 101/59 97/56 103/58 O2 Sat by Pulse Oximetry 11/25/18 11/25/18 11/25/18 09:15 09:30 09:45 Temperature Pulse Rate 110 H 82 101 H Respiratory Rate Blood Pressure 127/59 129/85 116/59 O2 Sat by Pulse Oximetry 11/25/18 11/25/18 11/25/18 10:00 10:15 10:30 Temperature Pulse Rate 112 H 86 106 H Respiratory Rate Blood Pressure 120/59 110/61 106/57 O2 Sat by Pulse Oximetry 11/25/18 11/25/18 11/25/18 10:45 11:00 11:15 Temperature Pulse Rate 98 H 81 99 H Respiratory Rate Blood Pressure 120/53 207/145 115/73 O2 Sat by Pulse Oximetry 11/25/18 11/25/18 11:30 11:45 Temperature Pulse Rate 117 H 101 H Respiratory Rate Blood Pressure 138/69 105/64 O2 Sat by Pulse Oximetry - General Appearance General appearance: appears stated age, chronically ill, frail EENT: ATNC, PERRL Neck: no JVD, no thyromegaly Respiratory: Present: Clear to Ascultation Cardiology: regular, S1S2 Gastrointestinal: normal, normoactive bowel sounds Integumentary: no rash, warm and dry Neurologic: no focal deficit Musculoskeletal: other (-edema) Psychiatric: cooperative - Lab 11/24/18 06:56 11/24/18 06:56 Most recent lab results Calcium 9.1 mg/dL (8.4-10.2) 11/24/18 06:56 Phosphorus 11.30 mg/dL (2.5-4.5) H 11/21/18 04:17 - Allied health notes Allied health notes reviewed: nursing Medications & Allergies - Medications Allergies/Adverse Reactions: Allergies No Known Allergies Allergy (Verified 08/27/18 16:19) Home Medications: Home Medications Medication Instructions Recorded Confirmed Last Taken Type Ferrous Sulfate [Iron Supplement 150 mg PO BID 07/31/13 11/14/18 07/14/18 History 325 Mg tab] D Hanis-3S/Dha/Epa/Fish Oil/D3 [Fish 1 each PO DAILY 0511/14/18 09/02/18 05:20 History Tae-Hlgou-3-Vit D Softgel] amLODIPine [Norvasc] 10 mg PO DAILY 07/31/13 11/14/18 09/02/18 05:20 History cloNIDine [Catapres] 0.2 mg PO BID 07/31/13 11/14/18 09/02/18 05:20 History Carvedilol [Coreg] 6.25 mg PO BID 05/22/18 11/14/18 09/02/18 05:20 History Ergocalciferol (Vitamin D2) 2,000 unit PO DAILY 05/22/18 11/14/18 09/02/18 05:20 History [Vitamin D2] HYDROcodone/APAP 5-325 [[place] 1 each PO Q6HR PRN #25 tablet 09/02/18 11/14/18 Unknown Rx 5-325 mg TAB] Active Medications: Generic Name Dose Route Start Last Admin Trade Name Freq PRN Reason Stop Dose Admin Acetaminophen 650 mg 11/11/18 23:03 11/19/18 20:38 Tylenol PA 650 mg Q4H PRN Administration Pain, Mild (1-3) Acetaminophen 650 mg 11/20/18 14:32 11/25/18 02:22 Tylenol PO 650 mg Q4H PRN Administration Fever >101 Docusate Sodium 100 mg 11/21/18 22:00 11/25/18 10:53 Colace PO Not Given BID ISABELLA Epoetin Jeramy 10,000 unit 11/17/18 12:46 11/25/18 11:42 Procrit IV 10,000 unit TuTa ISABELLA Administration Cefazolin Sodium 1 gm in 50 mls @ 100 mls/hr 11/19/18 18:00 11/24/18 17:21 Ancef/Ns 1 Gm/50 Ml IV 12/27/18 18:29 100 mls/hr QPM ISABELLA Administration Protocol Sodium Chloride 100 mls @ 999 mls/hr 11/24/18 09:00 Nacl 0.9% IV SISSY PRN Hypotension Ondansetron HCl 4 mg 11/11/18 22:59 11/13/18 01:31 Zofran IV 4 mg Q4H PRN Administration Nausea And Vomiting Oxycodone/Acetaminophen 1 tab 11/16/18 16:10 11/24/18 00:00 Percocet 5/325 PO 1 tab Q6H PRN Administration Pain, Moderate (4-6) Polyethylene Glycol 17 gm 11/22/18 10:17 11/22/18 18:43 Miralax 3350 PO 17 gm BID PRN Administration Constipation Sevelamer Carbonate 2,400 mg 11/22/18 16:30 11/25/18 07:45 Renvela PO Not Given AC ISABELLA Sodium Chloride 10 ml 11/12/18 10:00 11/25/18 10:53 Sodium Chloride Flush Syringe 10 Ml IV Not Given BID ISABELLA Sodium Chloride 10 ml 11/11/18 22:59 11/18/18 13:50 Sodium Chloride Flush Syringe 10 Ml IV 10 ml PRN PRN Administration LINE FLUSH
[2018-11-25] MEDS ORDERED: SODIUM CHLORIDE*PRIMING MACHINE ONLY FOR DIALYSIS MC ONE (16:38)
[2018-11-25] MEDS: oxyCODONE /ACETAMINOPHEN 5-325MG TAB PO PRN (19:18)
[2018-11-25] MEDS: ceFAZolin/NS 1 GM/50 ML 1 GM/50 ML BAG IV SCH (19:22)
[2018-11-26] MEDS: SEVELAMER CARBONATE 800 MG TAB PO SCH ×4 (08:00→17:30)
[2018-11-26] MEDS: DOCUSATE SODIUM 100 MG CAP PO SCH ×2 (09:25→21:18)
--- NOTE | 2018-11-26 12:27 | Progress Note ---
Assessment and Plan Cultures: 11/12/2018 wound culture: MSSA 11/12/2018 vas cath culture: MSSA 11/12/2018 blood culture: MSSA 11/15/2018 blood culture: no growth 11/24/2018 blood culture: no growth Assessment: 73 yo M PMHx HTN, ESRD on HD, hyperparathyroidism, OA admitted with vascular catheter infection. 1. MSSA bacteremia secondary to Vascular catheter infection: catheter removed. Repeat blood cultures from 11/15/2018 negative. Got new HD cath placed. TTE unremarkable for any vegetations. Intermittent fevers +, clinically seems to be improving. 2. Pneumonia - vs fluid overload. Completed course of empiric broad spectrum abx. 3. ESRD on HD - renally dose antibiotics. Nephrology following. 4. HTN 5. Hyperparathyroidism. 6. Acute encephalopathy: CT head unremarkable. Etiology unclear. MRI brain unremarkable for acute process. Improving. 7. Persistent fevers: etiology unclear, in spite of appropriate abx. Repeat blood cultures have been negative. ?embolic seeding v/s drug fever. Patient asymptomatic. Will get CT chest, abdomen and pelvis with IV contrast, if no source identified, then will switch abx Recs: CT chest, abdomen and pelvis with IV contrast, if OK with nephrology continue IV Cefazolin daily qPM continue total 6 weeks of post HD Cefazolin upon discharge at the dialysis center ending 12/27/2018 (case management orders updated) follow up blood cultures from 11/24/2018 ID clinic follow up in 2 weeks D/W Dr. Angel Braun MD, FACP [facility] ([facility] C: [phone] O: [phone] F: [phone] Subjective Date of service: 11/26/18 Principal diagnosis: end-stage renal disease with line sepsis Interval history: Seen at dialysis. Continues to spike fevers. No complaints. Mental status remains improved. Objective - Exam Narrative Exam: Physical Exam: Constitutional: awake, alert, no distress. Head, Ears, Nose: Normocephalic, atraumatic. External ears, nose normal Eyes: Conjunctivae/corneas clear. No icterus. No ptosis. Neck: Supple, no meningeal signs Cardiovascular: S1, S2 normal. Respiratory: Good air entry, clear to auscultation bilaterally GI: Soft, non-tender; bowel sounds normal. No peritoneal signs Musculoskeletal: No pedal edema, no cyanosis. Left subclavian HD cath +. Right subclavian dressing site non tender Skin: No rash or abscess Hem/Lymphatic: No palpable cervical or supraclavicular nodes. No lymphangitis Psych: no agitation Neurological: awake, alert, oriented to place, person - Constitutional Vitals: Vital Signs Temp Pulse Resp BP Pulse Ox 99 F 93 H 18 102/55 99 11/26/18 09:15 11/26/18 12:00 11/26/18 09:15 11/26/18 12:00 11/26/18 08:55 Temperature -Last 24 Hours Temperature 99 F Temperature 99 F Temperature 98.8 F Temperature 101.1 F Temperature 102.1 F Temperature 98.7 F Temperature 98.8 F - Labs CBC & Chem 7: 11/24/18 06:56 11/24/18 06:56
--- NOTE | 2018-11-26 14:28 | Discharge Summary ---
Providers - Providers Date of Admission: 11/11/18 21:42 Date of discharge: 11/26/18 Attending physician: BLANCA TRAN 11/11/18 20:13 Consult to Physician [CONS] Routine Comment: Dr. Lopez spoke with Dr. Arvizu @ 2010 Consulting Provider: MONET ARVIZU Physician Instructions: Reason For Exam: hd. esrd. hyperkalemia 11/11/18 21:13 Speech Therapy Evaluation and Treat [CONS] Stat Reason For Exam: fail swallow screen 11/12/18 14:45 Consult to Physician [CONS] Routine Comment: Consulting Provider: LARRY SHINE Physician Instructions: Reason For Exam: infefcted permcath 11/12/18 18:44 Consult to Physician [CONS] Routine Comment: Consulting Provider: DRAKE LYLES Physician Instructions: Reason For Exam: Infected permacath/Sepsis 11/15/18 07:45 Consult to Physician [CONS] Routine Comment: called answ. serv./ portillo Consulting Provider: DRAKE LYLES Physician Instructions: Reason For Exam: Infeced perm cath cult/Staph aureus 11/20/18 08:28 Physical Therapy Evaluation and Treat [CONS] Routine Comment: Reason For Exam: deconditioning 11/20/18 12:27 Consult to Case Management [CONS] Routine Services Needed at Discharge: Other Notified:: SIMON Comment:: IV Cefazolin at dialysis Additional Physician Instructions: [facility] ([facility]) O: [phone] F: [phone] OUTPATIENT PARENTERAL ANTIBIOTIC THERAPY (OPAT) ORDERS Diagnoses: MSSA bacteremia, CLABSI Antimicrobial administration: IV Cefazolin dosed post HD as 2 gm qTuesday, 2 gm qThursday and 3 gm qSaturday at the dialysis center. Duration is 6 weeks ending 12/27/2018. Lines: Maintain IV access with weekly dressing changes and locks per protocol. Lab monitoring: - CBC with differential, Creatinine, ALT, AST, CRP once a week while on IV antibiotics. Please fax results to [phone] and call [phone] for critical lab results. Belinda Braun MD [facility] 11/25/18 10:59 Occupational Therapy Evaluate and Treat [CONS] Routine Comment: Reason For Exam: Debility Primary care physician: DISTRICT DIRECTOR Hospitalization Reason for admission: Infected right IJ permacath/worsening shortness of breath, fluid overload Condition: Fair Pertinent studies: Renal ultrasound Chest x-ray CT head Procedures: Removal of infected right IJ permacath New Permacath Placement Hospital course: 73-year-old -[place] male patient with significant past medical history of end-stage renal disease on hemodialysis osteoarthritis was admitted through emergency room with worsening shortness of breath, fluid overload, Patient was evaluated noted to have infected right IJ permacath with purulent drainage., Subsequently permacath removed and and patient received vascular And hemodialysis per schedule, Wound and blood cultures are consistent with staph aureus ID evaluated the patient placed on appropriate IV antibiotics Patient had intermittent confusion CT head today negative for acute abnormalities Discharge diagnosis; --Toxic Metabolic encephalopathy Probably secondary to sepsis, end-stage renal disease and uremia CT head negative, closely monitor, MRI brain negative. --MSSA bacteremia secondary to Vascular catheter infection Repeat blood cultures from 11/15/2018 negative. Got new HD cath placed. TTE unremarkable for any vegetations. Patient still with significant intermit tent fever ID recommend to continue total 6 weeks of post HD Cefazolin upon discharge at the dialysis center ending 12/27/2018 (case management orders updated) --Sepsis. As above. Continue antibiotics per ID. Continue to monitor his fever curve. --Persistent fevers; ID following, long-term antibiotics as mentioned above --Anemia of CKD Continue erythropoietin. Consider PRBCs with hemodialysis. --ESRD on dialysis; nephrology following Avoid nephrotoxins, HD per schedule --Community-acquired pneumonia: Empiric antibiotics, f/u cultures --History of Dysphagia; speech evaluated the patient Cleared for oral diet, no symptoms of dysphagia --Hypertension Closely monitor blood pressures and adjust as needed --Thrombocytopenia; no evidence of bleeding Closely monitor platelets, consult hematology if needed --DVT prophylaxis; heparin renal dose. --Full code; Patient is evaluated and accepted for inpatient acute rehabilitation. Patient is stable at discharge and transfer to inpatient rehabilitation today Disposition: DC-01 TO HOME OR SELFCARE Time spent for discharge: 32 min Core Measure Documentation - Palliative Care Palliative Care/ Comfort Measures: Not Applicable - Core Measures Any of the following diagnoses?: none Exam - Constitutional Vitals: Temp Pulse Resp BP Pulse Ox 99 F 112 H 18 123/68 99 11/26/18 09:15 11/26/18 13:15 11/26/18 09:15 11/26/18 13:15 11/26/18 08:55 General appearance: Present: no acute distress, well-nourished - EENT Eyes: Present: PERRL, EOM intact - Neck Neck: Present: supple, normal ROM - Respiratory Respiratory effort: normal Respiratory: bilateral: diminished, negative: rales, rhonchi, wheezing - Cardiovascular Rhythm: regular Heart Sounds: Present: S1 & S2 - Extremities Extremities: no ischemia, No edema - Abdominal General gastrointestinal: Present: soft, non-tender, non-distended, normal bowel sounds - Integumentary Integumentary: Present: clear, warm - Musculoskeletal Musculoskeletal: strength equal bilaterally - Psychiatric Psychiatric: appropriate mood/affect, cooperative - Neurologic Neurologic: CNII-XII intact, moves all extremities Plan Activity: advance as tolerated, fall precautions Diet: renal Special Instructions: physical therapy, occupational therapy Additional Instructions: Patient is being transferred to acute rehabilitation [facility] in our hospital today. Hemodialysis per schedule. ID recommend to continue total 6 weeks of post HD Cefazolin upon discharge at the dialysis center ending 12/27/2018 (case management orders updated) Follow up with: PRIMARY CAREMD [Primary Care Provider] - 3-5 Days
--- NOTE | 2018-11-26 16:04 | Progress Note ---
Assessment and Plan Assessment and plan: --Persistent fevers; ID following, long-term antibiotics Adv CT abd/pelvis and CT chest with contrast to r/o focus of infection --Toxic Metabolic encephalopathy Probably secondary to sepsis, end-stage renal disease and uremia CT head negative, closely monitor, MRI brain negative. --MSSA bacteremia secondary to Vascular catheter infection Repeat blood cultures from 11/15/2018 negative. Got new HD cath placed. TTE unremarkable for any vegetations. Patient still with significant intermittent fever ID recommend to continue total 6 weeks of post HD Cefazolin upon discharge at the dialysis center ending 12/27/2018 (case management orders updated) --Sepsis. As above. Continue antibiotics per ID. Continue to monitor his fever curve. --Anemia of CKD Continue erythropoietin. Consider PRBCs with hemodialysis. --ESRD on dialysis; nephrology following Avoid nephrotoxins, HD per schedule --Community-acquired pneumonia: Empiric antibiotics, f/u cultures --History of Dysphagia; speech evaluated the patient Cleared for oral diet, no symptoms of dysphagia --Hypertension Closely monitor blood pressures and adjust as needed --Thrombocytopenia; no evidence of bleeding Closely monitor platelets, consult hematology if needed --DVT prophylaxis; heparin renal dose. --Full code; Continue current management Plan of care reviewed with the patient and the family member at the bedside Discharge planning: Patient is accepted for acute rehab Rehabilitation physician wanted to wait till CT abdomen pelvis and chest CT are done prior to transfer to rehab . History Interval history: Patient seen and examined medical records reviewed Receiving hemodialysis today Patient complains of generalized weakness Intermittent fevers Vital signs noted Hospitalist Physical - Constitutional Vitals: Temp Pulse Resp BP Pulse Ox 99 F 110 H 18 126/58 99 11/26/18 13:32 11/26/18 13:32 11/26/18 13:32 11/26/18 13:32 11/26/18 08:55 General appearance: Present: no acute distress, well-nourished - EENT Eyes: Present: PERRL, EOM intact - Neck Neck: Present: supple, normal ROM - Respiratory Respiratory effort: normal Respiratory: bilateral: diminished, rhonchi, negative: rales, wheezing - Cardiovascular Rhythm: regular Heart Sounds: Present: S1 & S2 - Extremities Extremities: no ischemia, No edema - Abdominal General gastrointestinal: soft, non-tender, non-distended, normal bowel sounds - Integumentary Integumentary: Present: clear, warm - Psychiatric Psychiatric: appropriate mood/affect, cooperative - Neurologic Neurologic: moves all extremities Results - Labs CBC & Chem 7: 11/24/18 06:56 11/24/18 06:56 Labs: Laboratory Last Values WBC 9.2 K/mm3 (4.5-11.0) 11/24/18 06:56 RBC 3.15 M/mm3 (3.65-5.03) L 11/24/18 06:56 Hgb 8.9 gm/dl (11.8-15.2) L 11/24/18 06:56 Hct 26.4 % (35.5-45.6) L 11/24/18 06:56 MCV 84 fl (84-94) 11/24/18 06:56 MCH 28 pg (28-32) 11/24/18 06:56 MCHC 34 % (32-34) 11/24/18 06:56 RDW 15.1 % (13.2-15.2) 11/24/18 06:56 Plt Count 132 K/mm3 (140-440) L 11/24/18 06:56 Lymph % (Auto) 9.9 % (13.4-35.0) L 11/24/18 06:56 Perkins % (Auto) 8.2 % (0.0-7.3) H 11/24/18 06:56 Eos % (Auto) 0.3 % (0.0-4.3) 11/24/18 06:56 Baso % (Auto) 0.4 % (0.0-1.8) 11/24/18 06:56 Lymph # 0.9 K/mm3 (1.2-5.4) L 11/24/18 06:56 Perkins # 0.8 K/mm3 (0.0-0.8) 11/24/18 06:56 Eos # 0.0 K/mm3 (0.0-0.4) 11/24/18 06:56 Baso # 0.0 K/mm3 (0.0-0.1) 11/24/18 06:56 Add Manual Diff Complete 11/17/18 06:09 Total Counted 100 11/17/18 06:09 Seg Neutrophils % 81.2 % (40.0-70.0) H 11/24/18 06:56 Seg Neuts % (Manual) 83.0 % (40.0-70.0) H 11/17/18 06:09 3.0 % 11/17/18 06:09 7.0 % (13.4-35.0) L 11/17/18 06:09 Reactive Lymphs % (Man) 0 % 11/17/18 06:09 4.0 % (0.0-7.3) 11/17/18 06:09 0 % (0.0-4.3) 11/17/18 06:09 0 % (0.0-1.8) 11/17/18 06:09 3.0 % 11/17/18 06:09 0 % 11/17/18 06:09 0 % 11/17/18 06:09 0 % 11/17/18 06:09 Nucleated RBC % Not Reportable 11/17/18 06:09 Seg Neutrophils # 7.5 K/mm3 (1.8-7.7) 11/24/18 06:56 Seg Neutrophils # Man 13.1 K/mm3 (1.8-7.7) H 11/17/18 06:09 Band Neutrophils # 0.5 K/mm3 11/17/18 06:09 1.1 K/mm3 (1.2-5.4) L 11/17/18 06:09 Abs React Lymphs (Man) 0.0 K/mm3 11/17/18 06:09 0.6 K/mm3 (0.0-0.8) 11/17/18 06:09 0.0 K/mm3 (0.0-0.4) 11/17/18 06:09 0.0 K/mm3 (0.0-0.1) 11/17/18 06:09 0.5 K/mm3 11/17/18 06:09 0.0 K/mm3 11/17/18 06:09 0.0 K/mm3 11/17/18 06:09 Blast Cells # 0.0 K/mm3 11/17/18 06:09 WBC Morphology Not Reportable 11/17/18 06:09 Hypersegmented Neuts Not Reportable 11/17/18 06:09 Hyposegmented Neuts Not Reportable 11/17/18 06:09 Hypogranular Neuts Not Reportable 11/17/18 06:09 Not Reportable 11/17/18 06:09 Not Reportable 11/17/18 06:09 Not Reportable 11/17/18 06:09 Not Reportable 11/17/18 06:09 Not Reportable 11/17/18 06:09 Not Reportable 11/17/18 06:09 Consistent w auto 11/17/18 06:09 Not Reportable 11/17/18 06:09 Plt Clumps, EDTA Not Reportable 11/17/18 06:09 Few 11/17/18 06:09 Not Reportable 11/17/18 06:09 Not Reportable 11/17/18 06:09 Plt Morphology Comment Not Reportable 11/17/18 06:09 RBC Morphology Not Reportable 11/17/18 06:09 Dimorphic RBCs Not Reportable 11/17/18 06:09 Few 11/17/18 06:09 Few 11/17/18 06:09 Not Reportable 11/17/18 06:09 Not Reportable 11/17/18 06:09 Not Reportable 11/17/18 06:09 Not Reportable 11/17/18 06:09 Not Reportable 11/17/18 06:09 Not Reportable 11/17/18 06:09 Not Reportable 11/17/18 06:09 1+ 11/17/18 06:09 Few 11/17/18 06:09 Not Reportable 11/17/18 06:09 Not Reportable 11/17/18 06:09 Not Reportable 11/17/18 06:09 Not Reportable 11/17/18 06:09 Not Reportable 11/17/18 06:09 Not Reportable 11/17/18 06:09 Not Reportable 11/17/18 06:09 Not Reportable 11/17/18 06:09 Acanthocytes (Spur) Not Reportable 11/17/18 06:09 Rouleaux Not Reportable 11/17/18 06:09 Not Reportable 11/17/18 06:09 Not Reportable 11/17/18 06:09 Not Reportable 11/17/18 06:09 Not Reportable 11/17/18 06:09 Hem Pathologist Commnt No 11/17/18 06:09 Sodium 135 mmol/L (137-145) L 11/24/18 06:56 Potassium 4.5 mmol/L (3.6-5.0) 11/24/18 06:56 Chloride 96.8 mmol/L (98-107) L 11/24/18 06:56 Carbon Dioxide 24 mmol/L (22-30) 11/24/18 06:56 19 mmol/L 11/24/18 06:56 BUN 41 mg/dL (9-20) H 11/24/18 06:56 4.0 mg/dL (0.8-1.5) H 11/24/18 06:56 Estimated GFR 18 ml/min 11/24/18 06:56 10 % 11/24/18 06:56 Glucose 113 mg/dL (75-100) H 11/24/18 06:56 POC Glucose 232 (70-105) H 11/23/18 23:24 Lactic Acid 2.00 mmol/L (0.7-2.0) 11/11/18 17:45 Calcium 9.1 mg/dL (8.4-10.2) 11/24/18 06:56 Phosphorus 11.30 mg/dL (2.5-4.5) H 11/21/18 04:17 0.80 mg/dL (0.1-1.2) 11/11/18 17:45 AST 35 units/L (5-40) 11/11/18 17:45 ALT 12 units/L (7-56) 11/11/18 17:45 88 units/L (35-129) 11/11/18 17:45 68.0 umol/L (25-60) H 11/17/18 11:41 363 units/L (55-170) H 11/12/18 03:33 CK-MB (CK-2) 4.0 ng/mL (0.0-4.0) 11/12/18 03:33 CK-MB (CK-2) Rel Index 1.1 (0-4) 11/12/18 03:33 0.274 ng/mL (0.00-0.029) H* 11/12/18 03:33 8.0 g/dL (6.3-8.2) 11/11/18 17:45 3.1 g/dL (3.9-5) L 11/11/18 17:45 0.6 % 11/11/18 17:45 Triglycerides 380 mg/dL (2-149) H 11/11/18 17:45 Cholesterol 117 mg/dL (50-199) 11/11/18 17:45 8 mg/dL (50-130) L 11/11/18 17:45 8 mg/dL (40-59) L 11/11/18 17:45 14.62 % 11/11/18 17:45 Vitamin B12 > 2000 pg/mL (211-911) H 11/17/18 06:09 > 20 ng/mL (7.3-26.0) 11/17/18 06:09 Random Vancomycin 16.5 ug/mL (0-40.0) 11/20/18 05:51 Hepatitis A IgM Ab Non-reactive (NonReactive) 11/12/18 10:01 Hep Bs Antigen Non-reactive (Negative) 11/12/18 10:01 Hep B Core IgM Ab Non-reactive (NonReactive) 11/12/18 10:01 Non-reactive (NonReactive) 11/12/18 10:01 Active Medications - Current Medications Current Medications: Generic Name Dose Route Start Last Admin Trade Name Freq PRN Reason Stop Dose Admin Acetaminophen 650 mg 11/11/18 23:03 11/19/18 20:38 Tylenol CA 650 mg Q4H PRN Administration Pain, Mild (1-3) Acetaminophen 650 mg 11/20/18 14:32 11/25/18 21:27 Tylenol PO 650 mg Q4H PRN Administration Fever >101 Docusate Sodium 100 mg 11/21/18 22:00 11/25/18 21:28 Colace PO 100 mg BID ISABELLA Administration Epoetin Jeramy 10,000 unit 11/17/18 12:46 11/25/18 11:42 Procrit IV 10,000 unit TuThSa ISABELLA Administration Cefazolin Sodium 1 gm in 50 mls @ 100 mls/hr 11/19/18 18:00 11/25/18 19:22 Ancef/Ns 1 Gm/50 Ml IV 12/27/18 18:29 100 mls/hr QPM ISABELLA Administration Protocol Sodium Chloride 100 mls @ 999 mls/hr 11/24/18 09:00 Nacl 0.9% IV SISSY PRN Hypotension Ondansetron HCl 4 mg 11/11/18 22:59 11/13/18 01:31 Zofran IV 4 mg Q4H PRN Administration Nausea And Vomiting Oxycodone/Acetaminophen 1 tab 11/16/18 16:10 11/25/18 19:18 Percocet 5/325 PO 1 tab Q6H PRN Administration Pain, Moderate (4-6) Polyethylene Glycol 17 gm 11/22/18 10:17 11/22/18 18:43 Miralax 3350 PO 17 gm BID PRN Administration Constipation Sevelamer Carbonate 2,400 mg 11/22/18 16:30 11/25/18 17:19 Renvela PO 2,400 mg AC ISABELLA Administration Sodium Chloride 10 ml 11/12/18 10:00 11/25/18 21:28 Sodium Chloride Flush Syringe 10 Ml IV 10 ml BID ISABELLA Administration Sodium Chloride 10 ml 11/11/18 22:59 11/18/18 13:50 Sodium Chloride Flush Syringe 10 Ml IV 10 ml PRN PRN Administration LINE FLUSH Nutrition/Malnutrition Assess - Dietary Evaluation Nutrition/Malnutrition Findings: Nutrition Notes Start: 11/12/18 14:51 Freq: Status: Active Protocol: Document 11/20/18 10:46 AP (Rec: 11/20/18 11:50 AP [email or web address]) Co-Sign 11/20/18 10:46 LM Nutrition Notes Initial or Follow up Reassessment Current Diagnosis CKD (stage V CKD),Hypertension Other Pertinent Diagnosis ESRD on HD, Hyperparathyroidism, Dysphagia , Pneu Current Diet Renal diet Labs/Tests K WNL BUN 65 Cr 5.4 BG 135 Pertinent Medications Reviewed Height 5 ft 6 in Weight 73.5 kg Ingram Body Weight (kg) 64.54 BMI 26.1 Subjective/Other Information Pt was not in room for reassessment, unsure of location. No HD today. Spoke to pt daughter who said pt appetite was poor. Pt didn't have much breakfast (<50%) but daughter reports 50% of dinner tray was consumed. 100% of Glucerna was consumed. Percent of energy/protein needs met: 100%/100% Burn Absent Trauma Absent Minimum of two criteria No #1 Nutrition Diagnosis Inadequate energy intake As Evidenced by Signs and Symptoms Pt consuming 100% of PRO/kcal needs Diagnosis Progress(for reassessment Resolved documentation) Is patient on ventilator? No Is Patient Ambulatory and/or Out of Bed No REE-([facility]-confined to bed) [phone] Additional Notes PRO needs: 88g(1.2g/kg) Fluid needs: 1-1.5L/day Nutrition Intervention Change Diet Order: Continue renal diet Continue ONS Add Supplement/Snack (indicate name/kcal Nepro BID /protein ) Provides kCal: 850 Provides Protein (gm) 38 Goal #1 Continue to meet at least 75% of energy and PRO needs via PO and ONS. Anticipated Discharge Needs: Renal Diet and ONS BID Follow-Up By: 11/27/18 Additional Comments F/U for PO/ONS intakes
[2018-11-26] MEDS ORDERED: SODIUM CHLORIDE*PRIMING MACHINE ONLY FOR DIALYSIS MC ONE (16:40)
--- NOTE | 2018-11-26 17:51 | Progress Note ---
Assessment and Plan - Patient Problems (1) ESRD (end stage renal disease) Current Visit: Yes Status: Chronic Plan to address problem: Orders placed for daily dialysis for three days in the setting of poor clearance. He has now received a total of four HD sessions this week. Discussed with dialysis staff and plan will be to hold HD tomorrow unless there is an urgent indication. Will likely set up for HD on Friday. (2) Sepsis Current Visit: Yes Status: Acute Qualifiers: Sepsis type: methicillin susceptible Staphylococcus aureus Plan to address problem: MSSA bactermia in the setting of infected RIJ Permcath, s/p removal with repeat cultures x 2 sets negative, with new permcath placed. ID recommendations noted with outpatient IV antibiotics arranged with HD. From a renal standpoint, ok to proceed with CT studies with IV contrast given his already ESRD state. (3) Pneumonia Current Visit: Yes Status: Acute Qualifiers: Pneumonia type: due to unspecified organism Laterality: unspecified laterality Lung location: unspecified part of lung Qualified Code(s): J18.9 - Pneumonia, unspecified organism Plan to address problem: Improved at this time. Antibiotics dosed per decreased renal function. 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 Would recommend that we hold off on all blood pressure medications at present time. Important that we maintain adequate MAP >65mmHg (5) Secondary hyperparathyroidism (of renal origin) Current Visit: Yes Status: Acute Plan to address problem: Will monitor his Ca, Phos, and iPTH levels inpatient. Continue home phos binder regimen. Subjective Date of service: 11/26/18 Principal diagnosis: end-stage renal disease with line sepsis Interval history: Continues to have sporadic fevers despite adequate antibiotic treatment. Discussed with ID, and concern for either durug fever or septic embolic phenomena. To note his TTE was negative and MRI of the brain was also normal. Plan to to obtain a CT chest/abdomen/pelvis with IV contrast for further evaluation. Objective - Vital Signs Vital signs: Vital Signs - 12hr 11/26/18 11/26/18 11/26/18 07:50 08:00 08:55 Temperature 99 F Pulse Rate 105 H Respiratory Rate Blood Pressure 118/47 O2 Sat by Pulse 92 99 Oximetry 11/26/18 11/26/18 11/26/18 09:15 09:30 09:45 Temperature 99 F Pulse Rate 114 H 106 H 87 Respiratory 18 Rate Blood Pressure 183/127 102/53 105/50 O2 Sat by Pulse Oximetry 11/26/18 11/26/18 11/26/18 10:00 10:15 10:30 Temperature Pulse Rate 106 H 111 H 111 H Respiratory Rate Blood Pressure 101/52 117/44 107/59 O2 Sat by Pulse Oximetry 11/26/18 11/26/18 11/26/18 10:45 11:00 11:15 Temperature Pulse Rate 116 H 108 H 130 H Respiratory Rate Blood Pressure 111/53 94/51 85/48 O2 Sat by Pulse Oximetry 11/26/18 11/26/18 11/26/18 11:17 11:30 11:45 Temperature Pulse Rate 105 H 98 H 104 H Respiratory Rate Blood Pressure 127/50 144/83 111/59 O2 Sat by Pulse Oximetry 11/26/18 11/26/18 11/26/18 12:00 12:15 12:30 Temperature Pulse Rate 93 H 93 H 110 H Respiratory Rate Blood Pressure 102/55 102/55 94/55 O2 Sat by Pulse Oximetry 11/26/18 11/26/18 11/26/18 12:45 13:00 13:15 Temperature Pulse Rate 101 H 107 H 112 H Respiratory Rate Blood Pressure 100/51 113/55 123/68 O2 Sat by Pulse Oximetry 11/26/18 11/26/18 13:30 13:32 Temperature 99 F Pulse Rate 122 H 110 H Respiratory 18 Rate Blood Pressure 117/56 126/58 O2 Sat by Pulse Oximetry - General Appearance General appearance: appears stated age, chronically ill EENT: ATNC, PERRL Neck: no JVD, no thyromegaly Respiratory: Present: Clear to Ascultation Cardiology: regular, S1S2 Gastrointestinal: normal, normoactive bowel sounds Integumentary: no rash, warm and dry Neurologic: no focal deficit, no asterixis Psychiatric: cooperative - Lab 11/24/18 06:56 11/24/18 06:56 Most recent lab results Calcium 9.1 mg/dL (8.4-10.2) 11/24/18 06:56 Phosphorus 11.30 mg/dL (2.5-4.5) H 11/21/18 04:17 - Imaging Chest x-ray: report reviewed - Allied health notes Allied health notes reviewed: nursing Medications & Allergies - Medications Allergies/Adverse Reactions: Allergies No Known Allergies Allergy (Verified 08/27/18 16:19) Home Medications: Home Medications Medication Instructions Recorded Confirmed Last Taken Type Acetaminophen [Acetaminophen 650 mg OR Q4H PRN supp.rect 11/26/18 Unknown Rx SUPPOS] Docusate Sodium [Colace CAP] 100 mg PO BID capsule 11/26/18 Unknown Rx Epoetin Jeramy 10,000 Unit [Procrit] 10,000 unit IV TuThSa vial 11/26/18 Unknown Rx Polyethylene Glycol 3350 [Miralax 17 gm PO BID PRN powd.pack 11/26/18 Unknown Rx 3350] Sevelamer Carbonate [Renvela] 2,400 mg PO AC tablet 11/26/18 Unknown Rx oxyCODONE /ACETAMINOPHEN [Percocet 1 tab PO Q6H PRN tablet 11/26/18 Unknown Rx 5/325 mg] Active Medications: Generic Name Dose Route Start Last Admin Trade Name Freq PRN Reason Stop Dose Admin Acetaminophen 650 mg 11/11/18 23:03 11/19/18 20:38 Tylenol OR 650 mg Q4H PRN Administration Pain, Mild (1-3) Acetaminophen 650 mg 11/20/18 14:32 11/25/18 21:27 Tylenol PO 650 mg Q4H PRN Administration Fever >101 Docusate Sodium 100 mg 11/21/18 22:00 11/25/18 21:28 Colace PO 100 mg BID ISABELLA Administration Epoetin Jeramy 10,000 unit 11/17/18 12:46 11/25/18 11:42 Procrit IV 10,000 unit TuThSa ISABELLA Administration Cefazolin Sodium 1 gm in 50 mls @ 100 mls/hr 11/19/18 18:00 11/25/18 19:22 Ancef/Ns 1 Gm/50 Ml IV 12/27/18 18:29 100 mls/hr QPM ISABELLA Administration Protocol Sodium Chloride 100 mls @ 999 mls/hr 11/24/18 09:00 Nacl 0.9% IV SISSY PRN Hypotension Ondansetron HCl 4 mg 11/11/18 22:59 11/13/18 01:31 Zofran IV 4 mg Q4H PRN Administration Nausea And Vomiting Oxycodone/Acetaminophen 1 tab 11/16/18 16:10 11/25/18 19:18 Percocet 5/325 PO 1 tab Q6H PRN Administration Pain, Moderate (4-6) Polyethylene Glycol 17 gm 11/22/18 10:17 11/22/18 18:43 Miralax 3350 PO 17 gm BID PRN Administration Constipation Sevelamer Carbonate 2,400 mg 11/22/18 16:30 11/26/18 11:30 Renvela PO Not Given AC ISABELLA Sodium Chloride 10 ml 11/12/18 10:00 11/25/18 21:28 Sodium Chloride Flush Syringe 10 Ml IV 10 ml BID ISABELLA Administration Sodium Chloride 10 ml 11/11/18 22:59 11/18/18 13:50 Sodium Chloride Flush Syringe 10 Ml IV 10 ml PRN PRN Administration LINE FLUSH
[2018-11-26] MEDS: ceFAZolin/NS 1 GM/50 ML 1 GM/50 ML BAG IV SCH (19:00)
--- NOTE | 2018-11-26 19:32 | Cat Scan Report ---
CT CHEST, ABDOMEN, AND PELVIS WITH CONTRAST INDICATION: Persistent fever CONTRAST: With unspecified dosage Omnipaque 300 IV COMPARISON: None available. All CT scans at this location are performed using CT dose reduction for ALARA by means of automated e xposure control. FINDINGS: No significant axillary or chest wall lesions are seen. A large bore central line has its t ip at the atriocaval junction. Bilateral thyroid apparent nodularity is seen with the largest hypoden sity on the right in the mid pole measuring 17 mm in diameter and smaller lesion seen on the left. No mediastinal or hilar masses are seen. A few small mediastinal nodes are not pathologically enlarged. Heart is enlarged mildly. Minimal pericardial effusion is seen. Dense consolidation with air bronchograms is noted in the left lower lobe consistent with consolidati ng pneumonitis. A small left pleural effusion is seen with a trace of a right pleural effusion. In al l lobes there are patchy bilateral infiltrates and nodular type densities, many cavitary with cavitat ion seen mostly in the upper lobes and right middle lobe. Moderate dense consolidation is seen periph erally in the left upper lobe. Mild bullous change is seen. Mild diffuse increased interstitial theodore ngs are noted. Atelectatic changes are seen in both lower lobes. No pneumoperitoneum is seen. Small broad-based umbilical hernia contains is seen containing only fat. No lymphadenopathy is seen. Bilateral renal cysts and probable cysts are noted. No urinary tract edinson culi or evidence of obstruction are seen. Both kidneys show mild cortical atrophy. Large amount of st ool is noted in the colon consistent with moderate constipation but without dilatation. I do not see evidence of bowel obstruction. Colonic diverticulosis is seen without evidence of diverticulitis. Steve endix appears within normal limits. Liver shows multiple cysts. Gallbladder is distended but shows no obvious calculi and I do not see de finite wall thickening. No biliary dilatation is seen. Pancreas appears within normal limits. Both ad renal glands show nodularity with multiple nodules seen on the left measuring up to 2 cm in diameter of varying densities and nodules on the right measuring up to 1.5 cm. No other masses are seen. Prost ate is moderately enlarged and impinges mildly on the base of the bladder. No free fluid is seen. No abnormal fluid collection is seen to suggest an abscess. No focal inflammatory changes are seen. IMPRESSION: 1. Prominent abnormalities are seen in the lung cochran as above with areas of consolidation, most pro minent in the left lower lobe, consistent with pneumonitis and with multiple nodular infiltrates, man y with cavitation, of significant concern for septic emboli. An atypical infection could also be cons idered but is less favored. Neoplastic disease or a process such as is significantly granulomatosis a re also possible but not favored. 2. Gallbladder distention without definite wall thickening or calculi. No biliary dilatation is seen. 3. Evidence of moderate constipation 4. No obvious infectious process or abscess is seen in the abdomen or pelvis 5. Bilateral adrenal nodularity. Recommend follow-up or MR. Signer Name: Frederic Velasquez MD Signed: 11/26/2018 7:27 PM Workstation Name: [id number]
[2018-11-26] MEDS: ACETAMINOPHEN 325 MG TAB PO PRN (21:17)
[2018-11-27] MEDS: oxyCODONE /ACETAMINOPHEN 5-325MG TAB PO PRN ×2 (03:20→13:17)
--- NOTE | 2018-11-27 07:40 | Progress Note ---
Assessment and Plan Assessment and plan: --Acute on Chronic Anemia of CKD Hb 6.2 transfuse 1 unit PRBC today second unit tomorrow during HD Continue erythropoietin. MonitorH&H --Persistent fevers; ID following, long-term antibiotics CT chest; Areas of consolidation left lower lobe consistant with pneumonitis /multiple nodular infiltrates with cavitation concern for septic emboli. Atypical infection could be considered,neoplastic disease or granulomatosis are also possible ID Rec SAMARIA, discussed with cardiology, Scheduled for 11/30/2018 --Toxic Metabolic encephalopathy Probably secondary to sepsis, end-stage renal disease and uremia CT head negative, closely monitor, MRI brain negative. --MSSA bacteremia secondary to Vascular catheter infection Repeat blood cultures from 11/15/2018 negative. Got new HD cath placed. TTE unremarkable for any vegetations. Patient still with significant intermittent fever ID recommend to continue total 6 weeks of post HD Cefazolin upon discharge at the dialysis center ending 12/27/2018 (case management orders updated) --Sepsis. As above. Continue antibiotics per ID. Continue to monitor his fever curve. --ESRD on dialysis; nephrology following Avoid nephrotoxins, HD per schedule --Community-acquired pneumonia: Empiric antibiotics, f/u cultures --History of Dysphagia; speech evaluated the patient Cleared for oral diet, no symptoms of dysphagia --Hypertension Closely monitor blood pressures and adjust as needed --Thrombocytopenia; no evidence of bleeding Closely monitor platelets, consult hematology if needed --DVT prophylaxis; heparin renal dose. --Full code; Continue current management, Consults and recommendations noted and appreciated Plan of care reviewed with the patient and the family member at the bedside History Interval history: Patient seen and examined this morning medical records reviewed Patient complains of generalized weakness Significant drop in H&H, recommend type and cross Transfuse 1 unit of when necessary basis today Transfuse second unit of PRBC tomorrow during hemodialysis Patient chronically ill-looking vital signs noted Hospitalist Physical - Constitutional Vitals: Temp Pulse Resp BP Pulse Ox 98.6 F 122 H 20 111/53 94 11/27/18 02:29 11/27/18 02:29 11/27/18 02:29 11/27/18 02:29 11/27/18 02:29 General appearance: Present: mild distress, well-nourished, other - EENT Eyes: Present: PERRL, EOM intact - Neck Neck: Present: supple, normal ROM - Respiratory Respiratory effort: normal Respiratory: bilateral: diminished, negative: rales, rhonchi, wheezing - Cardiovascular Rhythm: regular Heart Sounds: Present: S1 & S2 - Extremities Extremities: no ischemia, No edema - Abdominal General gastrointestinal: soft, non-tender, non-distended, normal bowel sounds - Integumentary Integumentary: Present: clear, warm - Psychiatric Psychiatric: appropriate mood/affect, cooperative - Neurologic Neurologic: CNII-XII intact, moves all extremities Results - Labs CBC & Chem 7: 11/27/18 08:56 11/27/18 08:56 Labs: Laboratory Last Values WBC 9.2 K/mm3 (4.5-11.0) 11/24/18 06:56 RBC 3.15 M/mm3 (3.65-5.03) L 11/24/18 06:56 Hgb 8.9 gm/dl (11.8-15.2) L 11/24/18 06:56 Hct 26.4 % (35.5-45.6) L 11/24/18 06:56 MCV 84 fl (84-94) 11/24/18 06:56 MCH 28 pg (28-32) 11/24/18 06:56 MCHC 34 % (32-34) 11/24/18 06:56 RDW 15.1 % (13.2-15.2) 11/24/18 06:56 Plt Count 132 K/mm3 (140-440) L 11/24/18 06:56 Lymph % (Auto) 9.9 % (13.4-35.0) L 11/24/18 06:56 Haines % (Auto) 8.2 % (0.0-7.3) H 11/24/18 06:56 Eos % (Auto) 0.3 % (0.0-4.3) 11/24/18 06:56 Baso % (Auto) 0.4 % (0.0-1.8) 11/24/18 06:56 Lymph # 0.9 K/mm3 (1.2-5.4) L 11/24/18 06:56 Haines # 0.8 K/mm3 (0.0-0.8) 11/24/18 06:56 Eos # 0.0 K/mm3 (0.0-0.4) 11/24/18 06:56 Baso # 0.0 K/mm3 (0.0-0.1) 11/24/18 06:56 Add Manual Diff Complete 11/17/18 06:09 Total Counted 100 11/17/18 06:09 Seg Neutrophils % 81.2 % (40.0-70.0) H 11/24/18 06:56 Seg Neuts % (Manual) 83.0 % (40.0-70.0) H 11/17/18 06:09 3.0 % 11/17/18 06:09 7.0 % (13.4-35.0) L 11/17/18 06:09 Reactive Lymphs % (Man) 0 % 11/17/18 06:09 4.0 % (0.0-7.3) 11/17/18 06:09 0 % (0.0-4.3) 11/17/18 06:09 0 % (0.0-1.8) 11/17/18 06:09 3.0 % 11/17/18 06:09 0 % 11/17/18 06:09 0 % 11/17/18 06:09 0 % 11/17/18 06:09 Nucleated RBC % Not Reportable 11/17/18 06:09 Seg Neutrophils # 7.5 K/mm3 (1.8-7.7) 11/24/18 06:56 Seg Neutrophils # Man 13.1 K/mm3 (1.8-7.7) H 11/17/18 06:09 Band Neutrophils # 0.5 K/mm3 11/17/18 06:09 1.1 K/mm3 (1.2-5.4) L 11/17/18 06:09 Abs React Lymphs (Man) 0.0 K/mm3 11/17/18 06:09 0.6 K/mm3 (0.0-0.8) 11/17/18 06:09 0.0 K/mm3 (0.0-0.4) 11/17/18 06:09 0.0 K/mm3 (0.0-0.1) 11/17/18 06:09 0.5 K/mm3 11/17/18 06:09 0.0 K/mm3 11/17/18 06:09 0.0 K/mm3 11/17/18 06:09 Blast Cells # 0.0 K/mm3 11/17/18 06:09 WBC Morphology Not Reportable 11/17/18 06:09 Hypersegmented Neuts Not Reportable 11/17/18 06:09 Hyposegmented Neuts Not Reportable 11/17/18 06:09 Hypogranular Neuts Not Reportable 11/17/18 06:09 Not Reportable 11/17/18 06:09 Not Reportable 11/17/18 06:09 Not Reportable 11/17/18 06:09 Not Reportable 11/17/18 06:09 Not Reportable 11/17/18 06:09 Not Reportable 11/17/18 06:09 Consistent w auto 11/17/18 06:09 Not Reportable 11/17/18 06:09 Plt Clumps, EDTA Not Reportable 11/17/18 06:09 Few 11/17/18 06:09 Not Reportable 11/17/18 06:09 Not Reportable 11/17/18 06:09 Plt Morphology Comment Not Reportable 11/17/18 06:09 RBC Morphology Not Reportable 11/17/18 06:09 Dimorphic RBCs Not Reportable 11/17/18 06:09 Few 11/17/18 06:09 Few 11/17/18 06:09 Not Reportable 11/17/18 06:09 Not Reportable 11/17/18 06:09 Not Reportable 11/17/18 06:09 Not Reportable 11/17/18 06:09 Not Reportable 11/17/18 06:09 Not Reportable 11/17/18 06:09 Not Reportable 11/17/18 06:09 1+ 11/17/18 06:09 Few 11/17/18 06:09 Not Reportable 11/17/18 06:09 Not Reportable 11/17/18 06:09 Not Reportable 11/17/18 06:09 Not Reportable 11/17/18 06:09 Not Reportable 11/17/18 06:09 Not Reportable 11/17/18 06:09 Not Reportable 11/17/18 06:09 Not Reportable 11/17/18 06:09 Acanthocytes (Spur) Not Reportable 11/17/18 06:09 Rouleaux Not Reportable 11/17/18 06:09 Not Reportable 11/17/18 06:09 Not Reportable 11/17/18 06:09 Not Reportable 11/17/18 06:09 Not Reportable 11/17/18 06:09 Hem Pathologist Commnt No 11/17/18 06:09 Sodium 135 mmol/L (137-145) L 11/24/18 06:56 Potassium 4.5 mmol/L (3.6-5.0) 11/24/18 06:56 Chloride 96.8 mmol/L (98-107) L 11/24/18 06:56 Carbon Dioxide 24 mmol/L (22-30) 11/24/18 06:56 19 mmol/L 11/24/18 06:56 BUN 41 mg/dL (9-20) H 11/24/18 06:56 4.0 mg/dL (0.8-1.5) H 11/24/18 06:56 Estimated GFR 18 ml/min 11/24/18 06:56 10 % 11/24/18 06:56 Glucose 113 mg/dL (75-100) H 11/24/18 06:56 POC Glucose 232 (70-105) H 11/23/18 23:24 Lactic Acid 2.00 mmol/L (0.7-2.0) 11/11/18 17:45 Calcium 9.1 mg/dL (8.4-10.2) 11/24/18 06:56 Phosphorus 11.30 mg/dL (2.5-4.5) H 11/21/18 04:17 0.80 mg/dL (0.1-1.2) 11/11/18 17:45 AST 35 units/L (5-40) 11/11/18 17:45 ALT 12 units/L (7-56) 11/11/18 17:45 88 units/L (35-129) 11/11/18 17:45 68.0 umol/L (25-60) H 11/17/18 11:41 363 units/L (55-170) H 11/12/18 03:33 CK-MB (CK-2) 4.0 ng/mL (0.0-4.0) 11/12/18 03:33 CK-MB (CK-2) Rel Index 1.1 (0-4) 11/12/18 03:33 0.274 ng/mL (0.00-0.029) H* 11/12/18 03:33 8.0 g/dL (6.3-8.2) 11/11/18 17:45 3.1 g/dL (3.9-5) L 11/11/18 17:45 0.6 % 11/11/18 17:45 Triglycerides 380 mg/dL (2-149) H 11/11/18 17:45 Cholesterol 117 mg/dL (50-199) 11/11/18 17:45 8 mg/dL (50-130) L 11/11/18 17:45 8 mg/dL (40-59) L 11/11/18 17:45 14.62 % 11/11/18 17:45 Vitamin B12 > 2000 pg/mL (211-911) H 11/17/18 06:09 > 20 ng/mL (7.3-26.0) 11/17/18 06:09 Random Vancomycin 16.5 ug/mL (0-40.0) 11/20/18 05:51 Hepatitis A IgM Ab Non-reactive (NonReactive) 11/12/18 10:01 Hep Bs Antigen Non-reactive (Negative) 11/12/18 10:01 Hep B Core IgM Ab Non-reactive (NonReactive) 11/12/18 10:01 Non-reactive (NonReactive) 11/12/18 10:01 Active Medications - Current Medications Current Medications: Generic Name Dose Route Start Last Admin Trade Name Freq PRN Reason Stop Dose Admin Acetaminophen 650 mg 11/11/18 23:03 11/19/18 20:38 Tylenol MA 650 mg Q4H PRN Administration Pain, Mild (1-3) Acetaminophen 650 mg 11/20/18 14:32 11/26/18 21:17 Tylenol PO 650 mg Q4H PRN Administration Fever >101 Docusate Sodium 100 mg 11/21/18 22:00 11/26/18 21:18 Colace PO 100 mg BID ISABELLA Administration Epoetin Jeramy 10,000 unit 11/17/18 12:46 11/25/18 11:42 Procrit IV 10,000 unit TuThSa ISABELLA Administration Cefazolin Sodium 1 gm in 50 mls @ 100 mls/hr 11/19/18 18:00 11/26/18 19:00 Ancef/Ns 1 Gm/50 Ml IV 12/27/18 18:29 100 mls/hr QPM ISABELLA Administration Protocol Sodium Chloride 100 mls @ 999 mls/hr 11/24/18 09:00 Nacl 0.9% IV SISSY PRN Hypotension Ondansetron HCl 4 mg 11/11/18 22:59 11/13/18 01:31 Zofran IV 4 mg Q4H PRN Administration Nausea And Vomiting Oxycodone/Acetaminophen 1 tab 11/16/18 16:10 11/27/18 03:20 Percocet 5/325 PO 1 tab Q6H PRN Administration Pain, Moderate (4-6) Polyethylene Glycol 17 gm 11/22/18 10:17 11/22/18 18:43 Miralax 3350 PO 17 gm BID PRN Administration Constipation Sevelamer Carbonate 2,400 mg 11/22/18 16:30 11/26/18 17:30 Renvela PO 2,400 mg AC ISABELLA Administration Sodium Chloride 10 ml 11/12/18 10:00 11/26/18 21:18 Sodium Chloride Flush Syringe 10 Ml IV 10 ml BID ISABELLA Administration Sodium Chloride 10 ml 11/11/18 22:59 11/18/18 13:50 Sodium Chloride Flush Syringe 10 Ml IV 10 ml PRN PRN Administration LINE FLUSH Nutrition/Malnutrition Assess - Dietary Evaluation Nutrition/Malnutrition Findings: Nutrition Notes Start: 11/12/18 14:51 Freq: Status: Active Protocol: Document 11/20/18 10:46 AP (Rec: 11/20/18 11:50 AP [email or web address]) Co-Sign 11/20/18 10:46 LM Nutrition Notes Initial or Follow up Reassessment Current Diagnosis CKD (stage V CKD),Hypertension Other Pertinent Diagnosis ESRD on HD, Hyperparathyroidism, Dysphagia , Pneu Current Diet Renal diet Labs/Tests K WNL BUN 65 Cr 5.4 BG 135 Pertinent Medications Reviewed Height 5 ft 6 in Weight 73.5 kg Amo Body Weight (kg) 64.54 BMI 26.1 Subjective/Other Information Pt was not in room for reassessment, unsure of location. No HD today. Spoke to pt daughter who said pt appetite was poor. Pt didn't have much breakfast (<50%) but daughter reports 50% of dinner tray was consumed. 100% of Glucerna was consumed. Percent of energy/protein needs met: 100%/100% Burn Absent Trauma Absent Minimum of two criteria No #1 Nutrition Diagnosis Inadequate energy intake As Evidenced by Signs and Symptoms Pt consuming 100% of PRO/kcal needs Diagnosis Progress(for reassessment Resolved documentation) Is patient on ventilator? No Is Patient Ambulatory and/or Out of Bed No REE-([facility]-confined to bed) [phone] Additional Notes PRO needs: 88g(1.2g/kg) Fluid needs: 1-1.5L/day Nutrition Intervention Change Diet Order: Continue renal diet Continue ONS Add Supplement/Snack (indicate name/kcal Nepro BID /protein ) Provides kCal: 850 Provides Protein (gm) 38 Goal #1 Continue to meet at least 75% of energy and PRO needs via PO and ONS. Anticipated Discharge Needs: Renal Diet and ONS BID Follow-Up By: 11/27/18 Additional Comments F/U for PO/ONS intakes
[2018-11-27] MEDS: SEVELAMER CARBONATE 800 MG TAB PO SCH ×3 (08:31→18:30)
--- NOTE | 2018-11-27 08:55 | Progress Note ---
Assessment and Plan - Patient Problems (1) ESRD (end stage renal disease) Current Visit: Yes Status: Chronic Plan to address problem: Orders placed for daily dialysis for three days in the setting of poor clearance. He has now received a total of four HD sessions this week. Discussed with dialysis staff and plan will be to hold HD today as there is no urgent indication. Will likely set up for HD on Friday. (2) Sepsis Current Visit: Yes Status: Acute Qualifiers: Sepsis type: methicillin susceptible Staphylococcus aureus Plan to address problem: MSSA bactermia in the setting of infected RIJ Permcath, s/p removal with repeat cultures x 2 sets negative, with new permcath placed. ID recommendations noted with outpatient IV antibiotics arranged with HD. CT chest/abdomen indicating evidence of septic emboli. Discussed with primary team and patient will need SAMARIA. TTE was negative earlier in the admission. (3) Pneumonia Current Visit: Yes Status: Acute Qualifiers: Pneumonia type: due to unspecified organism Laterality: unspecified laterality Lung location: unspecified part of lung Qualified Code(s): J18.9 - Pneumonia, unspecified organism Plan to address problem: Improved at this time. Antibiotics dosed per decreased renal function. 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 Would recommend that we hold off on all blood pressure medications at present time. Important that we maintain adequate MAP >65mmHg (5) Secondary hyperparathyroidism (of renal origin) Current Visit: Yes Status: Acute Plan to address problem: Will monitor his Ca, Phos, and iPTH levels inpatient. Continue home phos binder regimen. Subjective Date of service: 11/27/18 Principal diagnosis: end-stage renal disease with line sepsis Interval history: CT chest and abdomen are showing findings that are concerning for septic emboli. He had a TTE previously during admission which did not comment on valvular vegetations. Objective - Vital Signs Vital signs: Vital Signs - 12hr 11/26/18 11/26/18 11/26/18 21:41 22:00 22:04 Temperature Pulse Rate 63 Pulse Rate [ 122 H From Monitor] Respiratory 20 Rate Blood Pressure O2 Sat by Pulse 91 99 100 Oximetry 11/27/18 11/27/18 11/27/18 02:29 07:52 07:54 Temperature 98.6 F 98.5 F Pulse Rate 122 H 106 H Pulse Rate [ From Monitor] Respiratory 20 18 Rate Blood Pressure 111/53 113/65 O2 Sat by Pulse 94 93 96 Oximetry - General Appearance General appearance: chronically ill, frail EENT: ATNC Neck: no JVD, no thyromegaly Respiratory: Present: Clear to Ascultation, Normal Exam Cardiology: regular, normal heart rate Gastrointestinal: normal Integumentary: no rash, warm and dry Neurologic: no focal deficit, alert and oriented x3 - Lab 11/24/18 06:56 11/24/18 06:56 Most recent lab results Calcium 9.1 mg/dL (8.4-10.2) 11/24/18 06:56 Phosphorus 11.30 mg/dL (2.5-4.5) H 11/21/18 04:17 - Allied health notes Allied health notes reviewed: nursing Medications & Allergies - Medications Allergies/Adverse Reactions: Allergies No Known Allergies Allergy (Verified 08/27/18 16:19) Home Medications: Home Medications Medication Instructions Recorded Confirmed Last Taken Type Acetaminophen [Acetaminophen 650 mg CA Q4H PRN supp.rect 11/26/18 Unknown Rx SUPPOS] Docusate Sodium [Colace CAP] 100 mg PO BID capsule 11/26/18 Unknown Rx Epoetin Jeramy 10,000 Unit [Procrit] 10,000 unit IV TuThSa vial 11/26/18 Unknown Rx Polyethylene Glycol 3350 [Miralax 17 gm PO BID PRN powd.pack 11/26/18 Unknown Rx 3350] Sevelamer Carbonate [Renvela] 2,400 mg PO AC tablet 11/26/18 Unknown Rx oxyCODONE /ACETAMINOPHEN [Percocet 1 tab PO Q6H PRN tablet 11/26/18 Unknown Rx 5/325 mg] Active Medications: Generic Name Dose Route Start Last Admin Trade Name Freq PRN Reason Stop Dose Admin Acetaminophen 650 mg 11/11/18 23:03 11/19/18 20:38 Tylenol CA 650 mg Q4H PRN Administration Pain, Mild (1-3) Acetaminophen 650 mg 11/20/18 14:32 11/26/18 21:17 Tylenol PO 650 mg Q4H PRN Administration Fever >101 Docusate Sodium 100 mg 11/21/18 22:00 11/26/18 21:18 Colace PO 100 mg BID ISABELLA Administration Epoetin Jeramy 10,000 unit 11/17/18 12:46 11/25/18 11:42 Procrit IV 10,000 unit TuThSa ISABELLA Administration Cefazolin Sodium 1 gm in 50 mls @ 100 mls/hr 11/19/18 18:00 11/26/18 19:00 Ancef/Ns 1 Gm/50 Ml IV 12/27/18 18:29 100 mls/hr QPM ISABELLA Administration Protocol Sodium Chloride 100 mls @ 999 mls/hr 11/24/18 09:00 Nacl 0.9% IV SISSY PRN Hypotension Ondansetron HCl 4 mg 11/11/18 22:59 11/13/18 01:31 Zofran IV 4 mg Q4H PRN Administration Nausea And Vomiting Oxycodone/Acetaminophen 1 tab 11/16/18 16:10 11/27/18 03:20 Percocet 5/325 PO 1 tab Q6H PRN Administration Pain, Moderate (4-6) Polyethylene Glycol 17 gm 11/22/18 10:17 11/22/18 18:43 Miralax 3350 PO 17 gm BID PRN Administration Constipation Sevelamer Carbonate 2,400 mg 11/22/18 16:30 11/27/18 08:31 Renvela PO Not Given AC ISABELLA Sodium Chloride 10 ml 11/12/18 10:00 11/26/18 21:18 Sodium Chloride Flush Syringe 10 Ml IV 10 ml BID ISABELLA Administration Sodium Chloride 10 ml 11/11/18 22:59 11/18/18 13:50 Sodium Chloride Flush Syringe 10 Ml IV 10 ml PRN PRN Administration LINE FLUSH
[2018-11-27 09:55] LABS: Basophils # (Auto) 0.1 K/mm3 (0.0-0.1); Basophils % (Auto) 0.5 % (0.0-1.8); Eosinophils # (Auto) 0.1 K/mm3 (0.0-0.4); Eosinophils % (Auto) 1.2 % (0.0-4.3); Hemoglobin 6.2 gm/dl (11.8-15.2); Lymphocytes # (Auto) 1.6 K/mm3 (1.2-5.4); Lymphocytes % (Auto) 16.5 % (13.4-35.0); Mean Corpuscular HGB Conc 33 % (32-34); Mean Corpuscular Volume 84 fl (84-94); Monocytes # (Auto) 0.8 K/mm3 (0.0-0.8); Monocytes % (Auto) 8.1 % (0.0-7.3); Platelet Count 201 K/mm3 (140-440); Red Blood Count 2.25 M/mm3 (3.65-5.03); Red Cell Distribution Width 15.6 % (13.2-15.2)
[2018-11-27 10:16] LABS: Calcium 8.9 mg/dL (8.4-10.2)
--- NOTE | 2018-11-27 12:31 | Progress Note ---
Assessment and Plan Cultures: 11/12/2018 wound culture: MSSA 11/12/2018 vas cath culture: MSSA 11/12/2018 blood culture: MSSA 11/15/2018 blood culture: no growth 11/24/2018 blood culture: no growth Assessment: 73 yo M PMHx HTN, ESRD on HD, hyperparathyroidism, OA admitted with vascular catheter infection. 1. MSSA bacteremia secondary to Vascular catheter infection: catheter removed. Repeat blood cultures from 11/15/2018 negative. Got new HD cath placed. TTE unremarkable for any vegetations. Intermittent fevers +, clinically seems to be improving. CT chest abdomen and pelvis shows bilateral pulmonary septic emboli, no abdominal abscess. 2. Pneumonia - vs fluid overload. Completed course of empiric broad spectrum abx. 3. ESRD on HD - renally dose antibiotics. Nephrology following. 4. HTN 5. Hyperparathyroidism. 6. Acute encephalopathy: CT head unremarkable. Etiology unclear. MRI brain unremarkable for acute process. Improving. 7. Persistent fevers: fevers likely secondary to septic emboli. Recommend SAMARIA to eval for endocarditis. Recs: fevers likely secondary to septic emboli recommend SAMARIA to eval for any endocarditis continue IV Cefazolin daily qPM x 6 weeks continue total 6 weeks of post HD Cefazolin upon discharge at the dialysis center ending 12/27/2018 (case management orders updated) ID clinic follow up in 2 weeks D/W Dr. Angel Braun MD, FACP [facility] C: [phone] O: [phone] F: [phone] Subjective Date of service: 11/27/18 Principal diagnosis: end-stage renal disease with line sepsis Interval history: Low grade fever. Otherwise feels well. Had his CT done yesterday. Hungry, asking for food. Mental status seems much improved. Objective - Exam Narrative Exam: Physical Exam: Constitutional: awake, alert, no distress. Head, Ears, Nose: Normocephalic, atraumatic. External ears, nose normal Eyes: Conjunctivae/corneas clear. No icterus. No ptosis. Neck: Supple, no meningeal signs Cardiovascular: S1, S2 normal. Respiratory: Good air entry, clear to auscultation bilaterally GI: Soft, non-tender; bowel sounds normal. No peritoneal signs Musculoskeletal: No pedal edema, no cyanosis. Left subclavian HD cath +. Right subclavian dressing site non tender Skin: No rash or abscess Hem/Lymphatic: No palpable cervical or supraclavicular nodes. No lymphangitis Psych: no agitation Neurological: awake, alert, oriented - Constitutional Vitals: Vital Signs Temp Pulse Resp BP Pulse Ox 98.5 F 106 H 18 113/65 96 11/27/18 07:54 11/27/18 07:54 11/27/18 07:54 11/27/18 07:54 11/27/18 07:54 Temperature -Last 24 Hours Temperature 98.5 F Temperature 98.6 F Temperature 99.7 F Temperature 99 F - Labs CBC & Chem 7: 11/27/18 08:56 11/27/18 08:56 Labs: Abnormal lab results 11/27/18 11/27/18 Range/Units 08:56 08:56 RBC 2.25 L (3.65-5.03) M/mm3 Hgb 6.2 L (11.8-15.2) gm/dl Hct 19.0 L* (35.5-45.6) % RDW 15.6 H (13.2-15.2) % [place] % (Auto) 8.1 H (0.0-7.3) % Seg Neutrophils % 73.7 H (40.0-70.0) % Sodium 133 L (137-145) mmol/L Chloride 93.3 L (98-107) mmol/L BUN 28 H (9-20) mg/dL Creatinine 3.6 H (0.8-1.5) mg/dL Glucose 112 H (75-100) mg/dL - Imaging and cardiology CT scan - chest: report reviewed, image reviewed (b/l septic emboli to the lungs.)
[2018-11-27] MEDS: DOCUSATE SODIUM 100 MG CAP PO SCH (13:01)
[2018-11-27] MEDS ORDERED: SODIUM CHLORIDE 0.9% 500 ML IVPB IV SCH (14:00)
[2018-11-27] MEDS ORDERED: SODIUM CHLORIDE 0.9% 500 ML 500 ML IV NR ×2 (14:00→18:20)
--- NOTE | 2018-11-27 14:29 | Event Note ---
Date: 11/27/18 SAMARIA scheduled for 11/30/2018 at 9AM with anesthesia. Kirt GERMAIN NP / DR. SALINAS
[2018-11-27] MEDS: ACETAMINOPHEN 325 MG TAB PO PRN (18:30)
[2018-11-27] MEDS: ceFAZolin/NS 1 GM/50 ML 1 GM/50 ML BAG IV SCH (18:36)
[2018-11-27] MEDS ORDERED: ACETAMINOPHEN 325 MG TAB PO STA (19:42)
[2018-11-28 05:34] LABS: Basophils # (Auto) 0.1 K/mm3 (0.0-0.1); Basophils % (Auto) 0.7 % (0.0-1.8); Eosinophils # (Auto) 0.1 K/mm3 (0.0-0.4); Eosinophils % (Auto) 1.6 % (0.0-4.3); Hematocrit 22.1 % (35.5-45.6); Hemoglobin 7.2 gm/dl (11.8-15.2); Lymphocytes # (Auto) 1.4 K/mm3 (1.2-5.4); Lymphocytes % (Auto) 17.9 % (13.4-35.0); Mean Corpuscular HGB Conc 33 % (32-34); Mean Corpuscular Volume 83 fl (84-94); Monocytes # (Auto) 0.7 K/mm3 (0.0-0.8); Monocytes % (Auto) 8.2 % (0.0-7.3); Platelet Count 181 K/mm3 (140-440); Red Blood Count 2.66 M/mm3 (3.65-5.03); Red Cell Distribution Width 15.2 % (13.2-15.2)
[2018-11-28 05:42] LABS: Calcium 8.9 mg/dL (8.4-10.2)
[2018-11-28] MEDS: oxyCODONE /ACETAMINOPHEN 5-325MG TAB PO PRN (07:26)
[2018-11-28] MEDS: SEVELAMER CARBONATE 800 MG TAB PO SCH ×3 (07:26→18:00)
--- NOTE | 2018-11-28 08:41 | Progress Note ---
Assessment and Plan - Patient Problems (1) End stage renal disease Current Visit: Yes Status: Acute Plan to address problem: cont HD on TTS schedule (2) Sepsis Current Visit: Yes Status: Acute Qualifiers: Sepsis type: methicillin susceptible Staphylococcus aureus Plan to address problem: MSSA bactermia in the setting of infected RIJ Permcath, s/p removal with repeat cultures x 2 sets negative, with new permcath placed. ID recommendations noted with outpatient IV antibiotics arranged with HD. CT chest/abdomen indicating evidence of septic emboli. awaiting SAMARIA. TTE was negative earlier in the admission. (3) Pneumonia Current Visit: Yes Status: Acute Qualifiers: Pneumonia type: due to unspecified organism Laterality: unspecified laterality Lung location: unspecified part of lung Qualified Code(s): J18.9 - Pneumonia, unspecified organism Plan to address problem: Improved at this time. Antibiotics dosed per decreased renal function. (4) HTN (hypertension) Current Visit: Yes Status: Acute Plan to address problem: labile BP noted, recommend to hold off on all blood pressure medications at present time. Important that we maintain adequate MAP >65mmHg (5) Secondary hyperparathyroidism (of renal origin) Current Visit: Yes Status: Acute Plan to address problem: Will monitor his Ca, Phos, and iPTH levels inpatient. Continue home phos binder regimen. Subjective Date of service: 11/28/18 Principal diagnosis: end-stage renal disease with line sepsis Interval history: Pt awake alert, in no acute distress Objective - Vital Signs Vital signs: Vital Signs - 12hr 11/27/18 11/27/18 11/27/18 20:46 20:54 21:00 Temperature 98.9 F 98.7 F Pulse Rate 115 H 115 H 114 H Respiratory 20 20 Rate Blood Pressure 118/53 122/58 122/58 O2 Sat by Pulse 100 98 Oximetry 11/27/18 11/27/18 11/27/18 21:30 22:00 22:13 Temperature 98.9 F 98.7 F Pulse Rate 102 H 105 H Respiratory 18 20 20 Rate Blood Pressure 125/53 115/57 O2 Sat by Pulse 99 99 99 Oximetry 11/27/18 11/27/18 11/27/18 22:30 23:00 23:25 Temperature 98.7 F 98.9 F 98.9 F Pulse Rate 93 H 129 H 120 H Respiratory 18 20 18 Rate Blood Pressure 117/47 117/61 115/66 O2 Sat by Pulse 100 99 99 Oximetry 11/28/18 11/28/18 11/28/18 02:21 07:41 08:02 Temperature 98.8 F 98.2 F Pulse Rate 104 H 128 H Respiratory 18 20 Rate Blood Pressure 122/62 116/60 O2 Sat by Pulse 96 96 96 Oximetry - General Appearance General appearance: well-developed, well-nourished, appears stated age EENT: ATNC, PERRL, mucous membranes moist Neck: no JVD Respiratory: Present: Clear to Ascultation Cardiology: regular, S1S2 Gastrointestinal: normoactive bowel sounds Integumentary: no rash, other Neurologic: no focal deficit, alert and oriented x3, strength 5/5, CN 3-12 intact Psychiatric: mood/affect appropriate, cooperative - Lab 11/28/18 04:45 11/28/18 04:45 Most recent lab results Calcium 8.9 mg/dL (8.4-10.2) 11/28/18 04:45 Phosphorus 11.30 mg/dL (2.5-4.5) H 11/21/18 04:17 Medications & Allergies - Medications Allergies/Adverse Reactions: Allergies No Known Allergies Allergy (Verified 08/27/18 16:19) Home Medications: Home Medications Medication Instructions Recorded Confirmed Last Taken Type Acetaminophen [Acetaminophen 650 mg HI Q4H PRN supp.rect 11/26/18 Unknown Rx SUPPOS] Docusate Sodium [Colace CAP] 100 mg PO BID capsule 11/26/18 Unknown Rx Epoetin Jeramy 10,000 Unit [Procrit] 10,000 unit IV TuThSa vial 11/26/18 Unknown Rx Polyethylene Glycol 3350 [Miralax 17 gm PO BID PRN powd.pack 11/26/18 Unknown Rx 3350] Sevelamer Carbonate [Renvela] 2,400 mg PO AC tablet 11/26/18 Unknown Rx oxyCODONE /ACETAMINOPHEN [Percocet 1 tab PO Q6H PRN tablet 11/26/18 Unknown Rx 5/325 mg] Active Medications: Generic Name Dose Route Start Last Admin Trade Name Freq PRN Reason Stop Dose Admin Acetaminophen 650 mg 11/11/18 23:03 11/19/18 20:38 Tylenol HI 650 mg Q4H PRN Administration Pain, Mild (1-3) Acetaminophen 650 mg 11/20/18 14:32 11/27/18 18:30 Tylenol PO 650 mg Q4H PRN Administration Fever >101 Docusate Sodium 100 mg 11/21/18 22:00 11/27/18 13:01 Colace PO Not Given BID ISABELLA Epoetin Jeramy 10,000 unit 11/17/18 12:46 11/25/18 11:42 Procrit IV 10,000 unit TuThSa ISABELLA Administration Cefazolin Sodium 1 gm in 50 mls @ 100 mls/hr 11/19/18 18:00 11/27/18 18:36 Ancef/Ns 1 Gm/50 Ml IV 12/27/18 18:29 100 mls/hr QPM ISABELLA Administration Protocol Sodium Chloride 100 mls @ 999 mls/hr 11/24/18 09:00 Nacl 0.9% IV SISSY PRN Hypotension Ondansetron HCl 4 mg 11/11/18 22:59 11/13/18 01:31 Zofran IV 4 mg Q4H PRN Administration Nausea And Vomiting Oxycodone/Acetaminophen 1 tab 11/16/18 16:10 11/28/18 07:26 Percocet 5/325 PO 1 tab Q6H PRN Administration Pain, Moderate (4-6) Polyethylene Glycol 17 gm 11/22/18 10:17 11/22/18 18:43 Miralax 3350 PO 17 gm BID PRN Administration Constipation Sevelamer Carbonate 2,400 mg 11/22/18 16:30 11/28/18 07:26 Renvela PO 2,400 mg AC ISABELLA Administration Sodium Chloride 10 ml 11/12/18 10:00 11/27/18 13:19 Sodium Chloride Flush Syringe 10 Ml IV 10 ml BID ISABELLA Administration Sodium Chloride 10 ml 11/11/18 22:59 11/18/18 13:50 Sodium Chloride Flush Syringe 10 Ml IV 10 ml PRN PRN Administration LINE FLUSH
[2018-11-28] MEDS ORDERED: SODIUM CHLORIDE 0.9% 100 ML IV PRN (09:00)
[2018-11-28] MEDS: DOCUSATE SODIUM 100 MG CAP PO SCH ×2 (10:00→22:23)
--- NOTE | 2018-11-28 13:59 | Progress Note ---
Assessment and Plan Assessment and plan: SAMARIA tomorrow per cardiology --Acute on Chronic Anemia of CKD Hb 6.2 transfuse 1 unit PRBC today second unit tomorrow during HD Continue erythropoietin.MonitorH&H --Persistent fevers; ID following, long-term antibiotics CT chest; Areas of consolidation left lower lobe consistant with pneumonitis /multiple nodular infiltrates with cavitation concern for septic emboli. Atypical infection could be considered,neoplastic disease or granulomatosis are also possible ID Rec SAMARIA, discussed with cardiology, Scheduled for tomorrow 11/30/2018 --Toxic Metabolic encephalopathy Probably secondary to sepsis, end-stage renal disease and uremia CT head negative, closely monitor, MRI brain negative. --MSSA bacteremia secondary to Vascular catheter infection Repeat blood cultures from 11/15/2018 negative. Got new HD cath placed. TTE unremarkable for any vegetations. Patient still with significant intermittent fever ID recommend to continue total 6 weeks of post HD Cefazolin upon discharge at the dialysis center ending 12/27/2018 (case management orders updated) --Sepsis. As above. Continue antibiotics per ID. Continue to monitor his fever curve. --ESRD on dialysis; nephrology following Avoid nephrotoxins, HD per schedule --Community-acquired pneumonia: Empiric antibiotics, f/u cultures --History of Dysphagia; speech evaluated the patient Cleared for oral diet, no symptoms of dysphagia --Hypertension Closely monitor blood pressures and adjust as needed --Thrombocytopenia; no evidence of bleeding Closely monitor platelets, consult hematology if needed --DVT prophylaxis; heparin renal dose. --Full code; Continue current management, Consults and recommendations noted and appreciated Plan of care reviewed with the patient and the family member at the bedside History Interval history: Patient seen and examined medical records reviewed Patient is 6 hemodialysis per schedule On long-term antibiotics for sepsis Complaints of generalized weakness Vital signs noted Hospitalist Physical - Constitutional Vitals: Temp Pulse Resp BP Pulse Ox 98.2 F 97 H 18 142/62 96 11/28/18 10:15 11/28/18 13:00 11/28/18 10:15 11/28/18 13:00 11/28/18 08:02 General appearance: Present: no acute distress, well-nourished, other - EENT Eyes: Present: PERRL, EOM intact - Neck Neck: Present: supple, normal ROM - Respiratory Respiratory effort: normal Respiratory: bilateral: diminished, negative: rales, rhonchi, wheezing - Cardiovascular Rhythm: regular Heart Sounds: Present: S1 & S2 - Extremities Extremities: no ischemia, No edema - Abdominal General gastrointestinal: soft, non-tender, non-distended, normal bowel sounds - Integumentary Integumentary: Present: clear, warm - Psychiatric Psychiatric: appropriate mood/affect, cooperative - Neurologic Neurologic: moves all extremities Results - Labs CBC & Chem 7: 11/28/18 04:45 11/28/18 04:45 Labs: Laboratory Last Values WBC 8.0 K/mm3 (4.5-11.0) 11/28/18 04:45 RBC 2.66 M/mm3 (3.65-5.03) L 11/28/18 04:45 Hgb 7.2 gm/dl (11.8-15.2) L 11/28/18 04:45 Hct 22.1 % (35.5-45.6) L 11/28/18 04:45 MCV 83 fl (84-94) L 11/28/18 04:45 MCH 27 pg (28-32) L 11/28/18 04:45 MCHC 33 % (32-34) 11/28/18 04:45 RDW 15.2 % (13.2-15.2) 11/28/18 04:45 Plt Count 181 K/mm3 (140-440) 11/28/18 04:45 Lymph % (Auto) 17.9 % (13.4-35.0) 11/28/18 04:45 [place] % (Auto) 8.2 % (0.0-7.3) H 11/28/18 04:45 Eos % (Auto) 1.6 % (0.0-4.3) 11/28/18 04:45 Baso % (Auto) 0.7 % (0.0-1.8) 11/28/18 04:45 Lymph # 1.4 K/mm3 (1.2-5.4) 11/28/18 04:45 [place] # 0.7 K/mm3 (0.0-0.8) 11/28/18 04:45 Eos # 0.1 K/mm3 (0.0-0.4) 11/28/18 04:45 Baso # 0.1 K/mm3 (0.0-0.1) 11/28/18 04:45 Add Manual Diff Complete 11/17/18 06:09 Total Counted 100 11/17/18 06:09 Seg Neutrophils % 71.6 % (40.0-70.0) H 11/28/18 04:45 Seg Neuts % (Manual) 83.0 % (40.0-70.0) H 11/17/18 06:09 3.0 % 11/17/18 06:09 7.0 % (13.4-35.0) L 11/17/18 06:09 Reactive Lymphs % (Man) 0 % 11/17/18 06:09 4.0 % (0.0-7.3) 11/17/18 06:09 0 % (0.0-4.3) 11/17/18 06:09 0 % (0.0-1.8) 11/17/18 06:09 3.0 % 11/17/18 06:09 0 % 11/17/18 06:09 0 % 11/17/18 06:09 0 % 11/17/18 06:09 Nucleated RBC % Not Reportable 11/17/18 06:09 Seg Neutrophils # 5.8 K/mm3 (1.8-7.7) 11/28/18 04:45 Seg Neutrophils # Man 13.1 K/mm3 (1.8-7.7) H 11/17/18 06:09 Band Neutrophils # 0.5 K/mm3 11/17/18 06:09 1.1 K/mm3 (1.2-5.4) L 11/17/18 06:09 Abs React Lymphs (Man) 0.0 K/mm3 11/17/18 06:09 0.6 K/mm3 (0.0-0.8) 11/17/18 06:09 0.0 K/mm3 (0.0-0.4) 11/17/18 06:09 0.0 K/mm3 (0.0-0.1) 11/17/18 06:09 0.5 K/mm3 11/17/18 06:09 0.0 K/mm3 11/17/18 06:09 0.0 K/mm3 11/17/18 06:09 Blast Cells # 0.0 K/mm3 11/17/18 06:09 WBC Morphology Not Reportable 11/17/18 06:09 Hypersegmented Neuts Not Reportable 11/17/18 06:09 Hyposegmented Neuts Not Reportable 11/17/18 06:09 Hypogranular Neuts Not Reportable 11/17/18 06:09 Not Reportable 11/17/18 06:09 Not Reportable 11/17/18 06:09 Not Reportable 11/17/18 06:09 Not Reportable 11/17/18 06:09 Not Reportable 11/17/18 06:09 Not Reportable 11/17/18 06:09 Consistent w auto 11/17/18 06:09 Not Reportable 11/17/18 06:09 Plt Clumps, EDTA Not Reportable 11/17/18 06:09 Few 11/17/18 06:09 Not Reportable 11/17/18 06:09 Not Reportable 11/17/18 06:09 Plt Morphology Comment Not Reportable 11/17/18 06:09 RBC Morphology Not Reportable 11/17/18 06:09 Dimorphic RBCs Not Reportable 11/17/18 06:09 Few 11/17/18 06:09 Few 11/17/18 06:09 Not Reportable 11/17/18 06:09 Not Reportable 11/17/18 06:09 Not Reportable 11/17/18 06:09 Not Reportable 11/17/18 06:09 Not Reportable 11/17/18 06:09 Not Reportable 11/17/18 06:09 Not Reportable 11/17/18 06:09 1+ 11/17/18 06:09 Few 11/17/18 06:09 Not Reportable 11/17/18 06:09 Not Reportable 11/17/18 06:09 Not Reportable 11/17/18 06:09 Not Reportable 11/17/18 06:09 Not Reportable 11/17/18 06:09 Not Reportable 11/17/18 06:09 Not Reportable 11/17/18 06:09 Not Reportable 11/17/18 06:09 Acanthocytes (Spur) Not Reportable 11/17/18 06:09 Rouleaux Not Reportable 11/17/18 06:09 Not Reportable 11/17/18 06:09 Not Reportable 11/17/18 06:09 Not Reportable 11/17/18 06:09 Not Reportable 11/17/18 06:09 Hem Pathologist Commnt No 11/17/18 06:09 Sodium 132 mmol/L (137-145) L 11/28/18 04:45 Potassium 3.8 mmol/L (3.6-5.0) 11/28/18 04:45 Chloride 91.9 mmol/L (98-107) L 11/28/18 04:45 Carbon Dioxide 21 mmol/L (22-30) L 11/28/18 04:45 23 mmol/L 11/28/18 04:45 BUN 46 mg/dL (9-20) H 11/28/18 04:45 5.5 mg/dL (0.8-1.5) H D 11/28/18 04:45 Estimated GFR 12 ml/min 11/28/18 04:45 8 % 11/28/18 04:45 Glucose 103 mg/dL (75-100) H 11/28/18 04:45 POC Glucose 232 (70-105) H 11/23/18 23:24 Lactic Acid 2.00 mmol/L (0.7-2.0) 11/11/18 17:45 Calcium 8.9 mg/dL (8.4-10.2) 11/28/18 04:45 Phosphorus 11.30 mg/dL (2.5-4.5) H 11/21/18 04:17 0.80 mg/dL (0.1-1.2) 11/11/18 17:45 AST 35 units/L (5-40) 11/11/18 17:45 ALT 12 units/L (7-56) 11/11/18 17:45 88 units/L (35-129) 11/11/18 17:45 68.0 umol/L (25-60) H 11/17/18 11:41 363 units/L (55-170) H 11/12/18 03:33 CK-MB (CK-2) 4.0 ng/mL (0.0-4.0) 11/12/18 03:33 CK-MB (CK-2) Rel Index 1.1 (0-4) 11/12/18 03:33 0.274 ng/mL (0.00-0.029) H* 11/12/18 03:33 8.0 g/dL (6.3-8.2) 11/11/18 17:45 3.1 g/dL (3.9-5) L 11/11/18 17:45 0.6 % 11/11/18 17:45 Triglycerides 380 mg/dL (2-149) H 11/11/18 17:45 Cholesterol 117 mg/dL (50-199) 11/11/18 17:45 8 mg/dL (50-130) L 11/11/18 17:45 8 mg/dL (40-59) L 11/11/18 17:45 14.62 % 11/11/18 17:45 Vitamin B12 > 2000 pg/mL (211-911) H 11/17/18 06:09 > 20 ng/mL (7.3-26.0) 11/17/18 06:09 Random Vancomycin 16.5 ug/mL (0-40.0) 11/20/18 05:51 Hepatitis A IgM Ab Non-reactive (NonReactive) 11/12/18 10:01 Hep Bs Antigen Non-reactive (Negative) 11/12/18 10:01 Hep B Core IgM Ab Non-reactive (NonReactive) 11/12/18 10:01 Non-reactive (NonReactive) 11/12/18 10:01 Blood Type O POSITIVE 11/27/18 11:48 Antibody Screen Negative 11/27/18 11:48 Crossmatch See Detail 11/27/18 11:48 Active Medications - Current Medications Current Medications: Generic Name Dose Route Start Last Admin Trade Name Freq PRN Reason Stop Dose Admin Acetaminophen 650 mg 11/11/18 23:03 11/19/18 20:38 Tylenol MA 650 mg Q4H PRN Administration Pain, Mild (1-3) Acetaminophen 650 mg 11/20/18 14:32 11/27/18 18:30 Tylenol PO 650 mg Q4H PRN Administration Fever >101 Docusate Sodium 100 mg 11/21/18 22:00 11/28/18 10:00 Colace PO Not Given BID ISABELLA Epoetin Jeramy 10,000 unit 11/17/18 12:46 11/25/18 11:42 Procrit IV 10,000 unit TuThSa ISABELLA Administration Cefazolin Sodium 1 gm in 50 mls @ 100 mls/hr 11/19/18 18:00 11/27/18 18:36 Ancef/Ns 1 Gm/50 Ml IV 12/27/18 18:29 100 mls/hr QPM ISABELLA Administration Protocol Sodium Chloride 100 mls @ 999 mls/hr 11/28/18 09:00 Nacl 0.9% IV SISSY PRN Hypotension Ondansetron HCl 4 mg 11/11/18 22:59 11/13/18 01:31 Zofran IV 4 mg Q4H PRN Administration Nausea And Vomiting Oxycodone/Acetaminophen 1 tab 11/16/18 16:10 11/28/18 07:26 Percocet 5/325 PO 1 tab Q6H PRN Administration Pain, Moderate (4-6) Polyethylene Glycol 17 gm 11/22/18 10:17 11/22/18 18:43 Miralax 3350 PO 17 gm BID PRN Administration Constipation Sevelamer Carbonate 2,400 mg 11/22/18 16:30 11/28/18 12:05 Renvela PO Not Given AC ISABELLA Sodium Chloride 10 ml 11/12/18 10:00 11/28/18 10:00 Sodium Chloride Flush Syringe 10 Ml IV Not Given BID ISABELLA Sodium Chloride 10 ml 11/11/18 22:59 11/18/18 13:50 Sodium Chloride Flush Syringe 10 Ml IV 10 ml PRN PRN Administration LINE FLUSH Nutrition/Malnutrition Assess - Dietary Evaluation Nutrition/Malnutrition Findings: Nutrition Notes Start: 11/12/18 14:51 Freq: Status: Active Protocol: Document 11/27/18 10:00 PS (Rec: 11/27/18 10:28 PS [id number]) Co-Sign 11/27/18 10:00 LP Nutrition Notes Initial or Follow up Reassessment Current Diagnosis CKD (stage V CKD),Hypertension Other Pertinent Diagnosis ESRD on HD, Hyperparathyroidism, Dysphagia , Pneu Current Diet NPO Labs/Tests Reviewed Pertinent Medications Reviewed Height 5 ft 6 in Weight 73.2 kg [place] Body Weight (kg) 64.54 BMI 26.0 Subjective/Other Information Pt. now on NPO diet. Pt. states he didn't eat as well , but not sure why. Pt. had ONS in room, not opened. Per pt. care 04/27 pt. ate 25% of meals. Percent of energy/protein needs met: 25%/100% Burn Absent Trauma Absent Minimum of two criteria No #1 Nutrition Diagnosis Inadequate energy intake As Evidenced by Signs and Symptoms Pt. consuming 25% of PRO/kcal needs Diagnosis Progress(for reassessment Worsened documentation) Is patient on ventilator? No Is Patient Ambulatory and/or Out of Bed No REE-([facility]-confined to bed) [phone] Additional Notes PRO needs: 88g(1.2g/kg) Fluid needs: 1-1.5L/day Nutrition Intervention Change Diet Order: Advance from NPO to renal diet as tolerated. Continue ONS when diet advances. Add Supplement/Snack (indicate name/kcal Nepro BID /protein ) Provides kCal: 850 Provides Protein (gm) 38 Goal #1 Advance diet Anticipated Discharge Needs: Renal Diet and ONS BID Follow-Up By: 11/30/18 Additional Comments F/U for diet advancement and PO/ONS intakes
[2018-11-28] MEDS: ceFAZolin/NS 1 GM/50 ML 1 GM/50 ML BAG IV SCH (18:00)
[2018-11-28] MEDS: ACETAMINOPHEN 325 MG TAB PO PRN (22:22)
[2018-11-29] MEDS: ACETAMINOPHEN 325 MG TAB PO PRN (03:01)
[2018-11-29] MEDS: SEVELAMER CARBONATE 800 MG TAB PO SCH ×3 (08:30→17:04)
[2018-11-29] MEDS: DOCUSATE SODIUM 100 MG CAP PO SCH ×3 (08:31→21:06)
[2018-11-29] MEDS: oxyCODONE /ACETAMINOPHEN 5-325MG TAB PO PRN ×2 (08:33→17:04)
--- NOTE | 2018-11-29 10:17 | Progress Note ---
Assessment and Plan - Patient Problems (1) End stage renal disease Current Visit: Yes Status: Acute Plan to address problem: cont HD on TTS schedule (2) Sepsis Current Visit: Yes Status: Acute Qualifiers: Sepsis type: methicillin susceptible Staphylococcus aureus Plan to address problem: MSSA bactermia in the setting of infected RIJ Permcath, s/p removal with repeat cultures x 2 sets negative, with new permcath placed. ID recommendations noted with outpatient IV antibiotics arranged with HD. CT chest/abdomen indicating evidence of septic emboli. awaiting SAMARIA. TTE was negative earlier in the admission. (3) Pneumonia Current Visit: Yes Status: Acute Qualifiers: Pneumonia type: due to unspecified organism Laterality: unspecified laterality Lung location: unspecified part of lung Qualified Code(s): J18.9 - Pneumonia, unspecified organism Plan to address problem: Improved at this time. Antibiotics dosed per decreased renal function. (4) HTN (hypertension) Current Visit: Yes Status: Acute Plan to address problem: labile BP noted, recommend to hold off on all blood pressure medications at present time. Important that we maintain adequate MAP >65mmHg (5) Secondary hyperparathyroidism (of renal origin) Current Visit: Yes Status: Acute Plan to address problem: Will monitor his Ca, Phos, and iPTH levels inpatient. Continue home phos binder regimen. Subjective Date of service: 11/29/18 Principal diagnosis: end-stage renal disease with line sepsis Interval history: Pt awake alert, in no acute distress Objective - Vital Signs Vital signs: Vital Signs - 12hr 11/28/18 11/28/18 11/29/18 22:22 23:22 01:35 Temperature 99.7 F H Pulse Rate 107 H Respiratory 18 18 20 Rate Blood Pressure 130/58 O2 Sat by Pulse 97 Oximetry 11/29/18 11/29/18 03:01 08:06 Temperature 99.4 F Pulse Rate 96 H Respiratory 18 16 Rate Blood Pressure 137/71 O2 Sat by Pulse 93 Oximetry - General Appearance General appearance: well-developed, well-nourished, appears stated age EENT: ATNC, PERRL, mucous membranes moist Neck: no JVD Respiratory: Present: Clear to Ascultation Cardiology: regular, S1S2 Gastrointestinal: normal Integumentary: no rash Neurologic: no focal deficit, alert and oriented x3, strength 5/5, CN 3-12 intact Psychiatric: mood/affect appropriate, cooperative - Lab 11/28/18 04:45 11/28/18 04:45 Most recent lab results Calcium 8.9 mg/dL (8.4-10.2) 11/28/18 04:45 Phosphorus 11.30 mg/dL (2.5-4.5) H 11/21/18 04:17 Medications & Allergies - Medications Allergies/Adverse Reactions: Allergies No Known Allergies Allergy (Verified 08/27/18 16:19) Home Medications: Home Medications Medication Instructions Recorded Confirmed Last Taken Type Acetaminophen [Acetaminophen 650 mg [place] Q4H PRN supp.rect 11/26/18 Unknown Rx SUPPOS] Docusate Sodium [Colace CAP] 100 mg PO BID capsule 11/26/18 Unknown Rx Epoetin Jeramy 10,000 Unit [Procrit] 10,000 unit IV TuThSa vial 11/26/18 Unknown Rx Polyethylene Glycol 3350 [Miralax 17 gm PO BID PRN powd.pack 11/26/18 Unknown Rx 3350] Sevelamer Carbonate [Renvela] 2,400 mg PO AC tablet 11/26/18 Unknown Rx oxyCODONE /ACETAMINOPHEN [Percocet 1 tab PO Q6H PRN tablet 11/26/18 Unknown Rx 5/325 mg] Active Medications: Generic Name Dose Route Start Last Admin Trade Name Kurtq PRN Reason Stop Dose Admin Acetaminophen 650 mg 11/11/18 23:03 11/19/18 20:38 Tylenol NC 650 mg Q4H PRN Administration Pain, Mild (1-3) Acetaminophen 650 mg 11/20/18 14:32 11/29/18 03:01 Tylenol PO 650 mg Q4H PRN Administration Fever >101 Docusate Sodium 100 mg 11/21/18 22:00 11/29/18 08:31 Colace PO 100 mg BID ISABELLA Administration Epoetin Jeramy 10,000 unit 11/17/18 12:46 11/25/18 11:42 Procrit IV 10,000 unit TuThSa ISABELLA Administration Cefazolin Sodium 1 gm in 50 mls @ 100 mls/hr 11/19/18 18:00 11/28/18 18:00 Ancef/Ns 1 Gm/50 Ml IV 12/27/18 18:29 100 mls/hr QPM ISABELLA Administration Protocol Sodium Chloride 100 mls @ 999 mls/hr 11/28/18 09:00 Nacl 0.9% IV SISSY PRN Hypotension Ondansetron HCl 4 mg 11/11/18 22:59 11/13/18 01:31 Zofran IV 4 mg Q4H PRN Administration Nausea And Vomiting Oxycodone/Acetaminophen 1 tab 11/16/18 16:10 11/29/18 08:33 Percocet 5/325 PO 1 tab Q6H PRN Administration Pain, Moderate (4-6) Polyethylene Glycol 17 gm 11/22/18 10:17 11/22/18 18:43 Miralax 3350 PO 17 gm BID PRN Administration Constipation Sevelamer Carbonate 2,400 mg 11/22/18 16:30 11/29/18 08:30 Renvela PO 2,400 mg AC ISABELLA Administration Sodium Chloride 10 ml 11/12/18 10:00 11/29/18 08:31 Sodium Chloride Flush Syringe 10 Ml IV 10 ml BID ISABELLA Administration Sodium Chloride 10 ml 11/11/18 22:59 11/18/18 13:50 Sodium Chloride Flush Syringe 10 Ml IV 10 ml PRN PRN Administration LINE FLUSH
--- NOTE | 2018-11-29 15:31 | Progress Note ---
Assessment and Plan Assessment and plan: SAMARIA tomorrow per cardiology --Acute on Chronic Anemia of CKD Hb 6.2 transfuse 1 unit PRBC today second unit tomorrow during HD Continue erythropoietin.MonitorH&H --Persistent fevers; ID following, long-term antibiotics CT chest; Areas of consolidation left lower lobe consistant with pneumonitis /multiple nodular infiltrates with cavitation concern for septic emboli. Atypical infection could be considered,neoplastic disease or granulomatosis are also possible ID Rec SAMARIA, discussed with cardiology, Scheduled for 11/30/2018 --Toxic Metabolic encephalopathy Probably secondary to sepsis, end-stage renal disease and uremia CT head negative, closely monitor, MRI brain negative. --MSSA bacteremia secondary to Vascular catheter infection Repeat blood cultures from 11/15/2018 negative. Got new HD cath placed. TTE unremarkable for any vegetations. Patient still with significant intermittent fever ID recommend to continue total 6 weeks of post HD Cefazolin upon discharge at the dialysis center ending 12/27/2018 (case management orders updated) --Sepsis. As above. Continue antibiotics per ID. Continue to monitor his fever curve. --ESRD on dialysis; nephrology following Avoid nephrotoxins, HD per schedule --Community-acquired pneumonia: Empiric antibiotics, f/u cultures --History of Dysphagia; speech evaluated the patient Cleared for oral diet, no symptoms of dysphagia --Hypertension Closely monitor blood pressures and adjust as needed --Thrombocytopenia; no evidence of bleeding Closely monitor platelets, consult hematology if needed --DVT prophylaxis; heparin renal dose. --Full code; Continue current management, Consults and recommendations noted and appreciated Plan of care reviewed with the patient and the family member at the bedside History Interval history: Patient seen and examined and medical records reviewed Patient complains of generalized weakness On long-term antibiotics Scheduled for SAMARIA tomorrow Vital signs noted Hospitalist Physical - Constitutional Vitals: Temp Pulse Resp BP Pulse Ox 98.2 F 94 H 20 131/81 95 11/29/18 14:16 11/29/18 14:16 11/29/18 14:16 11/29/18 14:16 11/29/18 14:16 General appearance: Present: no acute distress, well-nourished, other - EENT Eyes: Present: PERRL, EOM intact - Neck Neck: Present: supple, normal ROM - Respiratory Respiratory effort: normal Respiratory: bilateral: diminished, negative: rales, rhonchi, wheezing - Cardiovascular Rhythm: regular Heart Sounds: Present: S1 & S2 - Extremities Extremities: no ischemia, No edema - Abdominal General gastrointestinal: soft, non-tender, non-distended, normal bowel sounds - Integumentary Integumentary: Present: clear, warm - Psychiatric Psychiatric: appropriate mood/affect, cooperative - Neurologic Neurologic: moves all extremities Results - Labs CBC & Chem 7: 11/28/18 04:45 11/28/18 04:45 Labs: Laboratory Last Values WBC 8.0 K/mm3 (4.5-11.0) 11/28/18 04:45 RBC 2.66 M/mm3 (3.65-5.03) L 11/28/18 04:45 Hgb 7.2 gm/dl (11.8-15.2) L 11/28/18 04:45 Hct 22.1 % (35.5-45.6) L 11/28/18 04:45 MCV 83 fl (84-94) L 11/28/18 04:45 MCH 27 pg (28-32) L 11/28/18 04:45 MCHC 33 % (32-34) 11/28/18 04:45 RDW 15.2 % (13.2-15.2) 11/28/18 04:45 Plt Count 181 K/mm3 (140-440) 11/28/18 04:45 Lymph % (Auto) 17.9 % (13.4-35.0) 11/28/18 04:45 Lamar % (Auto) 8.2 % (0.0-7.3) H 11/28/18 04:45 Eos % (Auto) 1.6 % (0.0-4.3) 11/28/18 04:45 Baso % (Auto) 0.7 % (0.0-1.8) 11/28/18 04:45 Lymph # 1.4 K/mm3 (1.2-5.4) 11/28/18 04:45 Lamar # 0.7 K/mm3 (0.0-0.8) 11/28/18 04:45 Eos # 0.1 K/mm3 (0.0-0.4) 11/28/18 04:45 Baso # 0.1 K/mm3 (0.0-0.1) 11/28/18 04:45 Add Manual Diff Complete 11/17/18 06:09 Total Counted 100 11/17/18 06:09 Seg Neutrophils % 71.6 % (40.0-70.0) H 11/28/18 04:45 Seg Neuts % (Manual) 83.0 % (40.0-70.0) H 11/17/18 06:09 3.0 % 11/17/18 06:09 7.0 % (13.4-35.0) L 11/17/18 06:09 Reactive Lymphs % (Man) 0 % 11/17/18 06:09 4.0 % (0.0-7.3) 11/17/18 06:09 0 % (0.0-4.3) 11/17/18 06:09 0 % (0.0-1.8) 11/17/18 06:09 3.0 % 11/17/18 06:09 0 % 11/17/18 06:09 0 % 11/17/18 06:09 0 % 11/17/18 06:09 Nucleated RBC % Not Reportable 11/17/18 06:09 Seg Neutrophils # 5.8 K/mm3 (1.8-7.7) 11/28/18 04:45 Seg Neutrophils # Man 13.1 K/mm3 (1.8-7.7) H 11/17/18 06:09 Band Neutrophils # 0.5 K/mm3 11/17/18 06:09 1.1 K/mm3 (1.2-5.4) L 11/17/18 06:09 Abs React Lymphs (Man) 0.0 K/mm3 11/17/18 06:09 0.6 K/mm3 (0.0-0.8) 11/17/18 06:09 0.0 K/mm3 (0.0-0.4) 11/17/18 06:09 0.0 K/mm3 (0.0-0.1) 11/17/18 06:09 0.5 K/mm3 11/17/18 06:09 0.0 K/mm3 11/17/18 06:09 0.0 K/mm3 11/17/18 06:09 Blast Cells # 0.0 K/mm3 11/17/18 06:09 WBC Morphology Not Reportable 11/17/18 06:09 Hypersegmented Neuts Not Reportable 11/17/18 06:09 Hyposegmented Neuts Not Reportable 11/17/18 06:09 Hypogranular Neuts Not Reportable 11/17/18 06:09 Not Reportable 11/17/18 06:09 Not Reportable 11/17/18 06:09 Not Reportable 11/17/18 06:09 Not Reportable 11/17/18 06:09 Not Reportable 11/17/18 06:09 Not Reportable 11/17/18 06:09 Consistent w auto 11/17/18 06:09 Not Reportable 11/17/18 06:09 Plt Clumps, EDTA Not Reportable 11/17/18 06:09 Few 11/17/18 06:09 Not Reportable 11/17/18 06:09 Not Reportable 11/17/18 06:09 Plt Morphology Comment Not Reportable 11/17/18 06:09 RBC Morphology Not Reportable 11/17/18 06:09 Dimorphic RBCs Not Reportable 11/17/18 06:09 Few 11/17/18 06:09 Few 11/17/18 06:09 Not Reportable 11/17/18 06:09 Not Reportable 11/17/18 06:09 Not Reportable 11/17/18 06:09 Not Reportable 11/17/18 06:09 Not Reportable 11/17/18 06:09 Not Reportable 11/17/18 06:09 Not Reportable 11/17/18 06:09 1+ 11/17/18 06:09 Few 11/17/18 06:09 Not Reportable 11/17/18 06:09 Not Reportable 11/17/18 06:09 Not Reportable 11/17/18 06:09 Not Reportable 11/17/18 06:09 Not Reportable 11/17/18 06:09 Not Reportable 11/17/18 06:09 Not Reportable 11/17/18 06:09 Not Reportable 11/17/18 06:09 Acanthocytes (Spur) Not Reportable 11/17/18 06:09 Rouleaux Not Reportable 11/17/18 06:09 Not Reportable 11/17/18 06:09 Not Reportable 11/17/18 06:09 Not Reportable 11/17/18 06:09 Not Reportable 11/17/18 06:09 Hem Pathologist Commnt No 11/17/18 06:09 Sodium 132 mmol/L (137-145) L 11/28/18 04:45 Potassium 3.8 mmol/L (3.6-5.0) 11/28/18 04:45 Chloride 91.9 mmol/L (98-107) L 11/28/18 04:45 Carbon Dioxide 21 mmol/L (22-30) L 11/28/18 04:45 23 mmol/L 11/28/18 04:45 BUN 46 mg/dL (9-20) H 11/28/18 04:45 5.5 mg/dL (0.8-1.5) H D 11/28/18 04:45 Estimated GFR 12 ml/min 11/28/18 04:45 8 % 11/28/18 04:45 Glucose 103 mg/dL (75-100) H 11/28/18 04:45 POC Glucose 232 (70-105) H 11/23/18 23:24 Lactic Acid 2.00 mmol/L (0.7-2.0) 11/11/18 17:45 Calcium 8.9 mg/dL (8.4-10.2) 11/28/18 04:45 Phosphorus 11.30 mg/dL (2.5-4.5) H 11/21/18 04:17 0.80 mg/dL (0.1-1.2) 11/11/18 17:45 AST 35 units/L (5-40) 11/11/18 17:45 ALT 12 units/L (7-56) 11/11/18 17:45 88 units/L (35-129) 11/11/18 17:45 68.0 umol/L (25-60) H 11/17/18 11:41 363 units/L (55-170) H 11/12/18 03:33 CK-MB (CK-2) 4.0 ng/mL (0.0-4.0) 11/12/18 03:33 CK-MB (CK-2) Rel Index 1.1 (0-4) 11/12/18 03:33 0.274 ng/mL (0.00-0.029) H* 11/12/18 03:33 8.0 g/dL (6.3-8.2) 11/11/18 17:45 3.1 g/dL (3.9-5) L 11/11/18 17:45 0.6 % 11/11/18 17:45 Triglycerides 380 mg/dL (2-149) H 11/11/18 17:45 Cholesterol 117 mg/dL (50-199) 11/11/18 17:45 8 mg/dL (50-130) L 11/11/18 17:45 8 mg/dL (40-59) L 11/11/18 17:45 14.62 % 11/11/18 17:45 Vitamin B12 > 2000 pg/mL (211-911) H 11/17/18 06:09 > 20 ng/mL (7.3-26.0) 11/17/18 06:09 Random Vancomycin 16.5 ug/mL (0-40.0) 11/20/18 05:51 Hepatitis A IgM Ab Non-reactive (NonReactive) 11/12/18 10:01 Hep Bs Antigen Non-reactive (Negative) 11/12/18 10:01 Hep B Core IgM Ab Non-reactive (NonReactive) 11/12/18 10:01 Non-reactive (NonReactive) 11/12/18 10:01 Blood Type O POSITIVE 11/27/18 11:48 Antibody Screen Negative 11/27/18 11:48 Crossmatch See Detail 11/27/18 11:48 Active Medications - Current Medications Current Medications: Generic Name Dose Route Start Last Admin Trade Name Freq PRN Reason Stop Dose Admin Acetaminophen 650 mg 11/11/18 23:03 11/19/18 20:38 Tylenol NM 650 mg Q4H PRN Administration Pain, Mild (1-3) Acetaminophen 650 mg 11/20/18 14:32 11/29/18 03:01 Tylenol PO 650 mg Q4H PRN Administration Fever >101 Docusate Sodium 100 mg 11/21/18 22:00 11/29/18 10:00 Colace PO Not Given BID ISABLELA Epoetin Jeramy 10,000 unit 11/17/18 12:46 11/25/18 11:42 Procrit IV 10,000 unit TuTa ISABELLA Administration Cefazolin Sodium 1 gm in 50 mls @ 100 mls/hr 11/19/18 18:00 11/28/18 18:00 Ancef/Ns 1 Gm/50 Ml IV 12/27/18 18:29 100 mls/hr QPM ISABELLA Administration Protocol Sodium Chloride 100 mls @ 999 mls/hr 11/28/18 09:00 Nacl 0.9% IV SISSY PRN Hypotension Ondansetron HCl 4 mg 11/11/18 22:59 11/13/18 01:31 Zofran IV 4 mg Q4H PRN Administration Nausea And Vomiting Oxycodone/Acetaminophen 1 tab 11/16/18 16:10 11/29/18 08:33 Percocet 5/325 PO 1 tab Q6H PRN Administration Pain, Moderate (4-6) Polyethylene Glycol 17 gm 11/22/18 10:17 11/22/18 18:43 Miralax 3350 PO 17 gm BID PRN Administration Constipation Sevelamer Carbonate 2,400 mg 11/22/18 16:30 11/29/18 13:04 Renvela PO 2,400 mg AC ISABELLA Administration Sodium Chloride 10 ml 11/12/18 10:00 11/29/18 10:00 Sodium Chloride Flush Syringe 10 Ml IV Not Given BID ISABELLA Sodium Chloride 10 ml 11/11/18 22:59 11/18/18 13:50 Sodium Chloride Flush Syringe 10 Ml IV 10 ml PRN PRN Administration LINE FLUSH Nutrition/Malnutrition Assess - Dietary Evaluation Nutrition/Malnutrition Findings: Nutrition Notes Start: 11/12/18 14:51 Freq: Status: Active Protocol: Document 11/27/18 10:00 PS (Rec: 11/27/18 10:28 PS [id number]) Co-Sign 11/27/18 10:00 LP Nutrition Notes Initial or Follow up Reassessment Current Diagnosis CKD (stage V CKD),Hypertension Other Pertinent Diagnosis ESRD on HD, Hyperparathyroidism, Dysphagia , Pneu Current Diet NPO Labs/Tests Reviewed Pertinent Medications Reviewed Height 5 ft 6 in Weight 73.2 kg [place] Body Weight (kg) 64.54 BMI 26.0 Subjective/Other Information Pt. now on NPO diet. Pt. states he didn't eat as well , but not sure why. Pt. had ONS in room, not opened. Per pt. care 04/27 pt. ate 25% of meals. Percent of energy/protein needs met: 25%/100% Burn Absent Trauma Absent Minimum of two criteria No #1 Nutrition Diagnosis Inadequate energy intake As Evidenced by Signs and Symptoms Pt. consuming 25% of PRO/kcal needs Diagnosis Progress(for reassessment Worsened documentation) Is patient on ventilator? No Is Patient Ambulatory and/or Out of Bed No REE-([facility]-confined to bed) 8971.386 Additional Notes PRO needs: 88g(1.2g/kg) Fluid needs: 1-1.5L/day Nutrition Intervention Change Diet Order: Advance from NPO to renal diet as tolerated. Continue ONS when diet advances. Add Supplement/Snack (indicate name/kcal Nepro BID /protein ) Provides kCal: 850 Provides Protein (gm) 38 Goal #1 Advance diet Anticipated Discharge Needs: Renal Diet and ONS BID Follow-Up By: 11/30/18 Additional Comments F/U for diet advancement and PO/ONS intakes
[2018-11-29] MEDS: ceFAZolin/NS 1 GM/50 ML 1 GM/50 ML BAG IV SCH (17:04)
[2018-11-30] MEDS: oxyCODONE /ACETAMINOPHEN 5-325MG TAB PO PRN ×2 (00:58→20:54)
[2018-11-30 06:31] LABS: Calcium 8.8 mg/dL (8.4-10.2)
[2018-11-30] MEDS: SEVELAMER CARBONATE 800 MG TAB PO SCH ×3 (07:38→17:11)
[2018-11-30] MEDS ORDERED: SODIUM CHLORIDE 0.9% 1000 ML 1,000 ML ONE (08:54)
--- NOTE | 2018-11-30 08:57 | Anesthesia Consultation ---
Anesthesia Consult and Med Hx Date of service: 11/30/18 - Airway Anesthetic Teeth Evaluation: Good ROM Head & Neck: Adequate Mental/Hyoid Distance: Adequate Mallampati Class: Class II Intubation Access Assessment: Probably Good - Pre-Operative Health Status ASA Pre-Surgery Classification: ASA3 Proposed Anesthetic Plan: MAC - Pulmonary Hx Smoking: No Hx Respiratory Symptoms: Yes (bronchitis s/p abx 07/2018) SOB: No Hx Sleep Apnea: No - Cardiovascular System Hx Hypertension: Yes (took clonidine and coreg today) Hx Heart Attack/AMI: No Hx Percutaneous Transluminal Coronary Angioplasty (PTCA): No Hx Cardia Arrhythmia: No Hx Heart Murmur: Yes - Central Nervous System CVA: No Hx Psychiatric Problems: No - Gastrointestinal Hx Gastroesophageal Reflux Disease: No - Endocrine Hx Renal Disease: Yes (HD Tues,Th,Sat) Hx End Stage Renal Disease: Yes Hx Liver Disease: No Hx Insulin Dependent Diabetes: No Hx Non-Insulin Dependent Diabetes: No Hx Thyroid Disease: No - Hematic Hx Anemia: Yes - Other Systems Hx Cancer: No Hx Obesity: No
--- NOTE | 2018-11-30 08:58 | Anesthesia Day of Surgery ---
Anesthesia Day of Surgery - Day of Surgery Patient Examined: Yes Patient H&P Reviewed: Yes Patient is NPO: Yes
[2018-11-30] MEDS ORDERED: BENZOCAINE 20% TOP SPRAY 0.5 ML UNIT DOSE MM NR ×2 (09:00→11:00)
[2018-11-30] MEDS ORDERED: PROPOFOL 200 MG/20 ML VIAL IV ONE ×2 (09:02)
[2018-11-30] MEDS ORDERED: LIDOCAINE MPF (2%) 20 MG/1 ML VIAL 5 ML ONE (09:03)
[2018-11-30] MEDS ORDERED: SODIUM CHLORIDE 0.9% 1000 ML 1,000 ML IV SCH (10:00)
[2018-11-30] MEDS: DOCUSATE SODIUM 100 MG CAP PO SCH ×2 (13:09→21:13)
[2018-11-30] MEDS: ACETAMINOPHEN 325 MG TAB PO PRN (13:14)
--- NOTE | 2018-11-30 15:01 | Progress Note ---
Assessment and Plan - Patient Problems (1) End stage renal disease Current Visit: Yes Status: Acute Plan to address problem: cont HD on TTS schedule (2) Sepsis Current Visit: Yes Status: Acute Qualifiers: Sepsis type: methicillin susceptible Staphylococcus aureus Plan to address problem: MSSA bactermia in the setting of infected RIJ Permcath, s/p removal with repeat cultures x 2 sets negative, with new permcath placed. ID recommendations noted with outpatient IV antibiotics arranged with HD. CT chest/abdomen indicating evidence of septic emboli. SAMARIA today (3) Pneumonia Current Visit: Yes Status: Acute Qualifiers: Pneumonia type: due to unspecified organism Laterality: unspecified latera lity Lung location: unspecified part of lung Qualified Code(s): J18.9 - Pneumonia, unspecified organism Plan to address problem: Improved at this time. Antibiotics dosed per decreased renal function. (4) HTN (hypertension) Current Visit: Yes Status: Acute Plan to address problem: labile BP noted, recommend to hold off on all blood pressure medications at present time. Important that we maintain adequate MAP >65mmHg (5) Secondary hyperparathyroidism (of renal origin) Current Visit: Yes Status: Acute Plan to address problem: Will monitor his Ca, Phos, and iPTH levels inpatient. Continue home phos binder regimen. Subjective Date of service: 11/30/18 Principal diagnosis: end-stage renal disease with line sepsis Interval history: Pt awake alert, in no acute distress Objective - Vital Signs Vital signs: Vital Signs - 12hr 11/30/18 11/30/18 11/30/18 07:24 09:17 09:30 Temperature 99.1 F Temperature [ 98.7 F Post-Procedure] Temperature [ 97.9 F Pre-Procedure] Pulse Rate 92 H Pulse Rate [ 93 H Post-Procedure] Pulse Rate [Pre 93 H -Procedure] Respiratory 18 Rate Respiratory 28 H Rate [Post- Procedure] Respiratory 22 Rate [Pre- Procedure] Blood Pressure 158/72 Blood Pressure 147/69 [Post-Procedure ] Blood Pressure 144/67 [Pre-Procedure] O2 Sat by Pulse 95 Oximetry O2 Sat by Pulse 95 Oximetry [Post -Procedure] O2 Sat by Pulse 97 Oximetry [Pre- Procedure] 11/30/18 11/30/18 11/30/18 09:45 10:00 10:32 Temperature 99.7 F H Temperature [ Post-Procedure] Temperature [ Pre-Procedure] Pulse Rate 95 H Pulse Rate [ 89 88 Post-Procedure] Pulse Rate [Pre -Procedure] Respiratory 18 18 Rate Respiratory 13 17 Rate [Post- Procedure] Respiratory Rate [Pre- Procedure] Blood Pressure 149/74 Blood Pressure 166/76 151/67 [Post-Procedure ] Blood Pressure [Pre-Procedure] O2 Sat by Pulse 93 93 Oximetry O2 Sat by Pulse 100 100 Oximetry [Post -Procedure] O2 Sat by Pulse Oximetry [Pre- Procedure] 11/30/18 11/30/18 13:01 13:14 Temperature 100.4 F H Temperature [ Post-Procedure] Temperature [ Pre-Procedure] Pulse Rate 91 H Pulse Rate [ Post-Procedure] Pulse Rate [Pre -Procedure] Respiratory 18 18 Rate Respiratory Rate [Post- Procedure] Respiratory Rate [Pre- Procedure] Blood Pressure 143/69 Blood Pressure [Post-Procedure ] Blood Pressure [Pre-Procedure] O2 Sat by Pulse 97 Oximetry O2 Sat by Pulse Oximetry [Post -Procedure] O2 Sat by Pulse Oximetry [Pre- Procedure] - General Appearance General appearance: well-developed, well-nourished, appears stated age EENT: ATNC, PERRL, mucous membranes moist Neck: no JVD Respiratory: Present: Clear to Ascultation Cardiology: regular, S1S2 Gastrointestinal: normoactive bowel sounds Integumentary: no rash, other (no edema ) Neurologic: no focal deficit, alert and oriented x3, strength 5/5, CN 3-12 intact Psychiatric: mood/affect appropriate, cooperative - Lab 11/28/18 04:45 11/30/18 03:20 Most recent lab results Calcium 8.8 mg/dL (8.4-10.2) 11/30/18 03:20 Phosphorus 11.30 mg/dL (2.5-4.5) H 11/21/18 04:17 Medications & Allergies - Medications Allergies/Adverse Reactions: Allergies No Known Allergies Allergy (Verified 08/27/18 16:19) Home Medications: Home Medications Medication Instructions Recorded Confirmed Last Taken Type Acetaminophen [Acetaminophen 650 mg OR Q4H PRN supp.rect 11/26/18 Unknown Rx SUPPOS] Docusate Sodium [Colace CAP] 100 mg PO BID capsule 11/26/18 Unknown Rx Epoetin Jeramy 10,000 Unit [Procrit] 10,000 unit IV TuThSa vial 11/26/18 Unknown Rx Polyethylene Glycol 3350 [Miralax 17 gm PO BID PRN powd.pack 11/26/18 Unknown Rx 3350] Sevelamer Carbonate [Renvela] 2,400 mg PO AC tablet 11/26/18 Unknown Rx oxyCODONE /ACETAMINOPHEN [Percocet 1 tab PO Q6H PRN tablet 11/26/18 Unknown Rx 5/325 mg] Active Medications: Generic Name Dose Route Start Last Admin Trade Name Freq PRN Reason Stop Dose Admin Acetaminophen 650 mg 11/11/18 23:03 11/19/18 20:38 Tylenol OR 650 mg Q4H PRN Administration Pain, Mild (1-3) Acetaminophen 650 mg 11/20/18 14:32 11/30/18 13:14 Tylenol PO 650 mg Q4H PRN Administration Fever >101 Benzocaine 1 spray 11/30/18 09:00 11/30/18 09:19 Hurricaine One 20% Topical [place] MM 11/30/18 15:00 1 spray PREOP NR Administration Benzocaine 2 spray 11/30/18 11:00 Hurricaine One 20% Topical [place] MM 11/30/18 15:00 PREOP NR Docusate Sodium 100 mg 11/21/18 22:00 11/30/18 13:09 Colace PO 100 mg BID ISABELLA Administration Epoetin Jeramy 10,000 unit 11/17/18 12:46 11/25/18 11:42 Procrit IV 10,000 unit TuThSa ISABELLA Administration Cefazolin Sodium 1 gm in 50 mls @ 100 mls/hr 11/19/18 18:00 11/29/18 17:04 Ancef/Ns 1 Gm/50 Ml IV 12/27/18 18:29 100 mls/hr QPM ISABELLA Administration Protocol Sodium Chloride 100 mls @ 999 mls/hr 11/28/18 09:00 Nacl 0.9% IV SISSY PRN Hypotension Sodium Chloride 1,000 mls @ 42 mls/hr 11/30/18 10:00 11/30/18 09:10 Nacl 0.9% 1000 Ml IV 42 mls/hr DIRECT ISABELLA Administration Ondansetron HCl 4 mg 11/11/18 22:59 11/13/18 01:31 Zofran IV 4 mg Q4H PRN Administration Nausea And Vomiting Oxycodone/Acetaminophen 1 tab 11/16/18 16:10 11/30/18 00:58 Percocet 5/325 PO 1 tab Q6H PRN Administration Pain, Moderate (4-6) Polyethylene Glycol 17 gm 11/22/18 10:17 11/22/18 18:43 Miralax 3350 PO 17 gm BID PRN Administration Constipation Sevelamer Carbonate 2,400 mg 11/22/18 16:30 11/30/18 12:09 Renvela PO 2,400 mg AC ISABELLA Administration Sodium Chloride 10 ml 11/12/18 10:00 11/30/18 13:10 Sodium Chloride Flush Syringe 10 Ml IV 10 ml BID ISABELLA Administration Sodium Chloride 10 ml 11/11/18 22:59 11/18/18 13:50 Sodium Chloride Flush Syringe 10 Ml IV 10 ml PRN PRN Administration LINE FLUSH
--- NOTE | 2018-11-30 15:28 | Progress Note ---
Assessment and Plan Cultures: 11/12/2018 wound culture: MSSA 11/12/2018 vas cath culture: MSSA 11/12/2018 blood culture: MSSA 11/15/2018 blood culture: no growth 11/24/2018 blood culture: no growth Assessment: 73 yo M PMHx HTN, ESRD on HD, hyperparathyroidism, OA admitted with vascular catheter infection. 1. MSSA bacteremia secondary to Vascular catheter infection: catheter removed. Repeat blood cultures from 11/15/2018 negative. Got new HD cath placed. TTE unremarkable for any vegetations. Intermittent fevers +, clinically seems to be improving. CT chest abdomen and pelvis shows bilateral pulmonary septic emboli, no abdominal abscess. SAMARIA no vegetations. 2. Pneumonia - vs fluid overload. Completed course of empiric broad spectrum abx. 3. ESRD on HD - renally dose antibiotics. Nephrology following. 4. HTN 5. Hyperparathyroidism. 6. Acute encephalopathy: CT head unremarkable. Etiology unclear. MRI brain unremarkable for acute process. Improving. 7. Persistent fevers: fevers likely secondary to septic emboli. SAMARIA no vegetations. Recs: monitor fever continue IV Cefazolin daily qPM x 6 weeks continue total 6 weeks of post HD Cefazolin upon discharge at the dialysis center ending 12/27/2018 (case management orders updated) ID clinic follow up in 2 weeks D/W Dr. Ortiz Will follow. Nina Bhatia MD Infectious Diseases Histology [facility] ([facility]) M [phone] O [phone] Subjective Date of service: 11/30/18 Principal diagnosis: end-stage renal disease with line sepsis Interval history: Patient feels ok. noted temp 100.4. Objective - Exam Narrative Exam: General appearance: Alert in NAD Eyes: anicteric sclerae, moist conjunctivae; no lid-lag; PERRLA HENT: Atraumatic; oropharynx clear with moist mucous membranes and no mucosal ulcerations/no oral thrush; normal hard and soft palate. Lungs: CTA, with normal respiratory effort and no intercostal retractions CV: RRR Abdomen: Soft, non-tender; no masses or hepatosplenomegaly Extremities: no edema, no cyanosis Skin: No rash. Psych: no agitated. Neuro: alert and oriented x 2 - Constitutional Vitals: Vital Signs Temp Pulse Resp BP Pulse Ox 98.8 F 91 H 18 143/69 97 11/30/18 15:14 11/30/18 13:01 11/30/18 13:14 11/30/18 13:01 11/30/18 13:01 Temperature -Last 24 Hours Temperature [Post-Procedure] 98.7 F Temperature [Pre-Procedure] 97.9 F Temperature 98.8 F Temperature 100.4 F Temperature 99.7 F Temperature 99.1 F Temperature 99.2 F Temperature 98.8 F - Labs CBC & Chem 7: 11/28/18 04:45 11/30/18 03:20 Labs: Abnormal lab results 11/30/18 Range/Units 03:20 Sodium 131 L (137-145) mmol/L Chloride 91.6 L (98-107) mmol/L BUN 39 H (9-20) mg/dL Creatinine 5.7 H (0.8-1.5) mg/dL Glucose 106 H (75-100) mg/dL
[2018-11-30] MEDS: ceFAZolin/NS 1 GM/50 ML 1 GM/50 ML BAG IV SCH (17:15)
--- NOTE | 2018-11-30 18:32 | Progress Note ---
Assessment and Plan Assessment and plan: Assessment and plan: SAMARIA negative per cardiology --Acute on Chronic Anemia of CKD Hb 6.2 transfuse s/p2 unit PRBC, todayHb 7.2 Continue erythropoietin.MonitorH&H, transfuse as needed --Persistent fevers; ID following, long-term antibiotics CT chest; Areas of consolidation left lower lobe consistant with pneumonitis /multiple nodular infiltrates with cavitation concern for septic emboli. Atypical infection could be considered,neoplastic disease or granulomatosis are also possible ID Rec SAMARIA, , the negative --Toxic Metabolic encephalopathy Probably secondary to sepsis, end-stage renal disease and uremia CT head negative, closely monitor, MRI brain negative. --MSSA bacteremia secondary to Vascular catheter infection Repeat blood cultures from 11/15/2018 negative. Got new HD cath placed. TTE unremarkable for any vegetations. Patient still with significant intermittent fever ID recommend to continue total 6 weeks of post HD Cefazolin upon discharge at the dialysis center ending 12/27/2018 (case management orders updated) --Sepsis. As above. Continue antibiotics per ID. Continue to monitor his fever curve. --ESRD on dialysis; nephrology following Avoid nephrotoxins, HD per schedule --Community-acquired pneumonia: Empiric antibiotics, f/u cultures --History of Dysphagia; speech evaluated the patient Cleared for oral diet, no symptoms of dysphagia --Hypertension Closely monitor blood pressures and adjust as needed --Thrombocytopenia; no evidence of bleeding Closely monitor platelets, consult hematology if needed --DVT prophylaxis; heparin renal dose. --Full code; Continue current management, Consults and recommendations noted and appreciated Awaiting acute rehabilitation placement Disposition; discharged to acute rehabilitation, pending approval History Interval history: Patient Seen and examined medical records reviewed Patient complains of generalized weakness Underwent SAMARIA today which is negative Alert awake oriented Vital signs reviewed Hospitalist Physical - Constitutional Vitals: Temp Pulse Resp BP Pulse Ox 98.8 F 91 H 18 143/69 97 11/30/18 15:14 11/30/18 13:01 11/30/18 13:14 11/30/18 13:01 11/30/18 13:01 General appearance: Present: mild distress, well-nourished, other - EENT Eyes: Present: PERRL, EOM intact - Neck Neck: Present: supple, normal ROM - Respiratory Respiratory effort: normal Respiratory: bilateral: diminished, negative: rales, rhonchi, wheezing - Cardiovascular Rhythm: regular Heart Sounds: Present: S1 & S2 - Extremities Extremities: no ischemia, No edema - Abdominal General gastrointestinal: soft, non-tender, non-distended, normal bowel sounds - Integumentary Integumentary: Present: clear, warm - Psychiatric Psychiatric: appropriate mood/affect, cooperative - Neurologic Neurologic: CNII-XII intact, moves all extremities Results - Labs CBC & Chem 7: 11/28/18 04:45 11/30/18 03:20 Labs: Laboratory Last Values WBC 8.0 K/mm3 (4.5-11.0) 11/28/18 04:45 RBC 2.66 M/mm3 (3.65-5.03) L 11/28/18 04:45 Hgb 7.2 gm/dl (11.8-15.2) L 11/28/18 04:45 Hct 22.1 % (35.5-45.6) L 11/28/18 04:45 MCV 83 fl (84-94) L 11/28/18 04:45 MCH 27 pg (28-32) L 11/28/18 04:45 MCHC 33 % (32-34) 11/28/18 04:45 RDW 15.2 % (13.2-15.2) 11/28/18 04:45 Plt Count 181 K/mm3 (140-440) 11/28/18 04:45 Lymph % (Auto) 17.9 % (13.4-35.0) 11/28/18 04:45 [place] % (Auto) 8.2 % (0.0-7.3) H 11/28/18 04:45 Eos % (Auto) 1.6 % (0.0-4.3) 11/28/18 04:45 Baso % (Auto) 0.7 % (0.0-1.8) 11/28/18 04:45 Lymph # 1.4 K/mm3 (1.2-5.4) 11/28/18 04:45 [place] # 0.7 K/mm3 (0.0-0.8) 11/28/18 04:45 Eos # 0.1 K/mm3 (0.0-0.4) 11/28/18 04:45 Baso # 0.1 K/mm3 (0.0-0.1) 11/28/18 04:45 Add Manual Diff Complete 11/17/18 06:09 Total Counted 100 11/17/18 06:09 Seg Neutrophils % 71.6 % (40.0-70.0) H 11/28/18 04:45 Seg Neuts % (Manual) 83.0 % (40.0-70.0) H 11/17/18 06:09 Band Neutrophils % 3.0 % 11/17/18 06:09 Lymphocytes % (Manual) 7.0 % (13.4-35.0) L 11/17/18 06:09 Reactive Lymphs % (Man) 0 % 11/17/18 06:09 Monocytes % (Manual) 4.0 % (0.0-7.3) 11/17/18 06:09 Eosinophils % (Manual) 0 % (0.0-4.3) 11/17/18 06:09 Basophils % (Manual) 0 % (0.0-1.8) 11/17/18 06:09 Metamyelocytes % 3.0 % 11/17/18 06:09 Myelocytes % 0 % 11/17/18 06:09 Promyelocytes % 0 % 11/17/18 06:09 Blast Cells % 0 % 11/17/18 06:09 Nucleated RBC % Not Reportable 11/17/18 06:09 Seg Neutrophils # 5.8 K/mm3 (1.8-7.7) 11/28/18 04:45 Seg Neutrophils # Man 13.1 K/mm3 (1.8-7.7) H 11/17/18 06:09 Band Neutrophils # 0.5 K/mm3 11/17/18 06:09 Lymphocytes # (Manual) 1.1 K/mm3 (1.2-5.4) L 11/17/18 06:09 Abs React Lymphs (Man) 0.0 K/mm3 11/17/18 06:09 Monocytes # (Manual) 0.6 K/mm3 (0.0-0.8) 11/17/18 06:09 Eosinophils # (Manual) 0.0 K/mm3 (0.0-0.4) 11/17/18 06:09 Basophils # (Manual) 0.0 K/mm3 (0.0-0.1) 11/17/18 06:09 Metamyelocytes # 0.5 K/mm3 11/17/18 06:09 Myelocytes # 0.0 K/mm3 11/17/18 06:09 Promyelocytes # 0.0 K/mm3 11/17/18 06:09 Blast Cells # 0.0 K/mm3 11/17/18 06:09 WBC Morphology Not Reportable 11/17/18 06:09 Hypersegmented Neuts Not Reportable 11/17/18 06:09 Hyposegmented Neuts Not Reportable 11/17/18 06:09 Hypogranular Neuts Not Reportable 11/17/18 06:09 Smudge Cells Not Reportable 11/17/18 06:09 Toxic Granulation Not Reportable 11/17/18 06:09 Toxic Vacuolation Not Reportable 11/17/18 06:09 Dohle Bodies Not Reportable 11/17/18 06:09 Pelger-Huet Anomaly Not Reportable 11/17/18 06:09 Fredi Rods Not Reportable 11/17/18 06:09 Platelet Estimate Consistent w auto 11/17/18 06:09 Clumped Platelets Not Reportable 11/17/18 06:09 Plt Clumps, EDTA Not Reportable 11/17/18 06:09 Large Platelets Few 11/17/18 06:09 Giant Platelets Not Reportable 11/17/18 06:09 Platelet Satelliting Not Reportable 11/17/18 06:09 Plt Morphology Comment Not Reportable 11/17/18 06:09 RBC Morphology Not Reportable 11/17/18 06:09 Dimorphic RBCs Not Reportable 11/17/18 06:09 Polychromasia Few 11/17/18 06:09 Hypochromasia Few 11/17/18 06:09 Poikilocytosis Not Reportable 11/17/18 06:09 Anisocytosis Not Reportable 11/17/18 06:09 Microcytosis Not Reportable 11/17/18 06:09 Macrocytosis Not Reportable 11/17/18 06:09 Spherocytes Not Reportable 11/17/18 06:09 Pappenheimer Bodies Not Reportable 11/17/18 06:09 Sickle Cells Not Reportable 11/17/18 06:09 Target Cells 1+ 11/17/18 06:09 Tear Drop Cells Few 11/17/18 06:09 Ovalocytes Not Reportable 11/17/18 06:09 Helmet Cells Not Reportable 11/17/18 06:09 [place] Bodies Not Reportable 11/17/18 06:09 Range Rings Not Reportable 11/17/18 06:09 [place] Cells Not Reportable 11/17/18 06:09 Bite Cells Not Reportable 11/17/18 06:09 Crenated Cell Not Reportable 11/17/18 06:09 Elliptocytes Not Reportable 11/17/18 06:09 Acanthocytes (Spur) Not Reportable 11/17/18 06:09 Rouleaux Not Reportable 11/17/18 06:09 Hemoglobin C Crystals Not Reportable 11/17/18 06:09 Schistocytes Not Reportable 11/17/18 06:09 Malaria parasites Not Reportable 11/17/18 06:09 [place] Bodies Not Reportable 11/17/18 06:09 Hem Pathologist Commnt No 11/17/18 06:09 Sodium 131 mmol/L (137-145) L 11/30/18 03:20 Potassium 3.7 mmol/L (3.6-5.0) 11/30/18 03:20 Chloride 91.6 mmol/L (98-107) L 11/30/18 03:20 Carbon Dioxide 26 mmol/L (22-30) 11/30/18 03:20 Anion Gap 17 mmol/L 11/30/18 03:20 BUN 39 mg/dL (9-20) H 11/30/18 03:20 Creatinine 5.7 mg/dL (0.8-1.5) H 11/30/18 03:20 Estimated GFR 12 ml/min 11/30/18 03:20 BUN/Creatinine Ratio 7 % 11/30/18 03:20 Glucose 106 mg/dL (75-100) H 11/30/18 03:20 POC Glucose 232 (70-105) H 11/23/18 23:24 Lactic Acid 2.00 mmol/L (0.7-2.0) 11/11/18 17:45 Calcium 8.8 mg/dL (8.4-10.2) 11/30/18 03:20 Phosphorus 11.30 mg/dL (2.5-4.5) H 11/21/18 04:17 Total Bilirubin 0.80 mg/dL (0.1-1.2) 11/11/18 17:45 AST 35 units/L (5-40) 11/11/18 17:45 ALT 12 units/L (7-56) 11/11/18 17:45 Alkaline Phosphatase 88 units/L (35-129) 11/11/18 17:45 Ammonia 68.0 umol/L (25-60) H 11/17/18 11:41 Total Creatine Kinase 363 units/L (55-170) H 11/12/18 03:33 CK-MB (CK-2) 4.0 ng/mL (0.0-4.0) 11/12/18 03:33 CK-MB (CK-2) Rel Index 1.1 (0-4) 11/12/18 03:33 Troponin T 0.274 ng/mL (0.00-0.029) H* 11/12/18 03:33 Total Protein 8.0 g/dL (6.3-8.2) 11/11/18 17:45 Albumin 3.1 g/dL (3.9-5) L 11/11/18 17:45 Albumin/Globulin Ratio 0.6 % 11/11/18 17:45 Triglycerides 380 mg/dL (2-149) H 11/11/18 17:45 Cholesterol 117 mg/dL (50-199) 11/11/18 17:45 LDL Cholesterol Direct 8 mg/dL (50-130) L 11/11/18 17:45 HDL Cholesterol 8 mg/dL (40-59) L 11/11/18 17:45 Cholesterol/HDL Ratio 14.62 % 11/11/18 17:45 Vitamin B12 > 2000 pg/mL (211-911) H 11/17/18 06:09 Folate > 20 ng/mL (7.3-26.0) 11/17/18 06:09 Random Vancomycin 16.5 ug/mL (0-40.0) 11/20/18 05:51 Hepatitis A IgM Ab Non-reactive (NonReactive) 11/12/18 10:01 Hep Bs Antigen Non-reactive (Negative) 11/12/18 10:01 Hep B Core IgM Ab Non-reactive (NonReactive) 11/12/18 10:01 Hepatitis C Antibody Non-reactive (NonReactive) 11/12/18 10:01 Blood Type O POSITIVE 11/27/18 11:48 Antibody Screen Negative 11/27/18 11:48 Crossmatch See Detail 11/27/18 11:48 Active Medications - Current Medications Current Medications: Generic Name Dose Route Start Last Admin Trade Name Macario PRN Reason Stop Dose Admin Acetaminophen 650 mg 11/11/18 23:03 11/19/18 20:38 Tylenol [place] 650 mg Q4H PRN Administration Pain, Mild (1-3) Acetaminophen 650 mg 11/20/18 14:32 11/30/18 13:14 Tylenol PO 650 mg Q4H PRN Administration Fever >101 Docusate Sodium 100 mg 11/21/18 22:00 11/30/18 13:09 Colace PO 100 mg BID ISABELLA Administration Epoetin Jeramy 10,000 unit 11/17/18 12:46 11/25/18 11:42 Procrit IV 10,000 unit TuThSa ISABELLA Administration Cefazolin Sodium 1 gm in 50 mls @ 100 mls/hr 11/19/18 18:00 11/30/18 17:15 Ancef/Ns 1 Gm/50 Ml IV 12/27/18 18:29 100 mls/hr QPM ISABELLA Administration Protocol Sodium Chloride 100 mls @ 999 mls/hr 11/28/18 09:00 Nacl 0.9% IV SISSY PRN Hypotension Sodium Chloride 1,000 mls @ 42 mls/hr 11/30/18 10:00 11/30/18 09:10 Nacl 0.9% 1000 Ml IV 42 mls/hr DIRECT ISABELLA Administration Ondansetron HCl 4 mg 11/11/18 22:59 11/13/18 01:31 Zofran IV 4 mg Q4H PRN Administration Nausea And Vomiting Oxycodone/Acetaminophen 1 tab 11/16/18 16:10 11/30/18 00:58 Percocet 5/325 PO 1 tab Q6H PRN Administration Pain, Moderate (4-6) Polyethylene Glycol 17 gm 11/22/18 10:17 11/22/18 18:43 Miralax 3350 PO 17 gm BID PRN Administration Constipation Sevelamer Carbonate 2,400 mg 11/22/18 16:30 11/30/18 17:11 Renvela PO 2,400 mg AC ISABELLA Administration Sodium Chloride 10 ml 11/12/18 10:00 11/30/18 13:10 Sodium Chloride Flush Syringe 10 Ml IV 10 ml BID ISABELLA Administration Sodium Chloride 10 ml 11/11/18 22:59 11/18/18 13:50 Sodium Chloride Flush Syringe 10 Ml IV 10 ml PRN PRN Administration LINE FLUSH Nutrition/Malnutrition Assess - Dietary Evaluation Nutrition/Malnutrition Findings: Nutrition Notes Start: 11/12/18 14:51 Freq: Status: Active Protocol: Document 11/30/18 10:09 LM (Rec: 11/30/18 10:13 [email or web address]) Nutrition Notes Initial or Follow up Reassessment Current Diagnosis CKD (stage V CKD),Hypertension Other Pertinent Diagnosis ESRD on HD, Hyperparathyroidism, Dysphagia , Pneu Current Diet NPO Labs/Tests Na 131 BUN 39 Cr 5.7 BG 106 Pertinent Medications Reviewed Height 5 ft 6 in Weight 73.5 kg [place] Body Weight (kg) 64.54 BMI 26.1 Subjective/Other Information Pt not in room at time of visit and NPO due to SAMARIA today . Percent of energy/protein needs met: 0%/0% Burn Absent Trauma Absent Minimum of two criteria No #1 Nutrition Diagnosis Inadequate energy intake Diagnosis Progress(for reassessment Continues documentation) Is patient on ventilator? No Is Patient Ambulatory and/or Out of Bed No REE-([facility]-confined to bed) [phone] Calculation Used for Recommendations [facility] Additional Notes PRO needs: 88g (1.2g/kg) Fluid needs: 1-1.5L/day Nutrition Intervention Change Diet Order: Advance from NPO to renal diet Continue ONS when diet advances. Add Supplement/Snack (indicate name/kcal [place] BID /protein ) Provides kCal: 850 Provides Protein (gm) 38 Goal #1 Meet at least 75% of energy and protein needs Anticipated Discharge Needs: Renal Diet and ONS BID Follow-Up By: 12/01/18 Additional Comments F/U for PO/ONS intakes
[2018-12-01 05:14] LABS: Basophils # (Auto) 0.1 K/mm3 (0.0-0.1); Basophils % (Auto) 0.8 % (0.0-1.8); Eosinophils # (Auto) 0.1 K/mm3 (0.0-0.4); Eosinophils % (Auto) 1.6 % (0.0-4.3); Hematocrit 22.2 % (35.5-45.6); Hemoglobin 7.5 gm/dl (11.8-15.2); Lymphocytes # (Auto) 1.1 K/mm3 (1.2-5.4); Mean Corpuscular HGB Conc 34 % (32-34); Mean Corpuscular Volume 85 fl (84-94); Monocytes # (Auto) 1.1 K/mm3 (0.0-0.8); Monocytes % (Auto) 13.3 % (0.0-7.3); Platelet Count 211 K/mm3 (140-440); Red Blood Count 2.62 M/mm3 (3.65-5.03); Red Cell Distribution Width 15.7 % (13.2-15.2)
[2018-12-01] MEDS: ACETAMINOPHEN 325 MG TAB PO PRN (06:06)
[2018-12-01] MEDS: SEVELAMER CARBONATE 800 MG TAB PO SCH ×2 (08:18→12:10)
--- NOTE | 2018-12-01 08:26 | Progress Note ---
Assessment and Plan Assessment and plan: Per admission documentation. 73 year old man with hypertension,ESRD on dialysdis, hyperparathyroidism, OA comes to the ER for evaluation. He is a poor historian, complaining of shortness of breath. He was noted to be febrile in the emergency room, failed his swallow screen. Chest x-ray shows bilateral pneumonia, he was started on cefepime --Acute on Chronic Anemia of CKD Hb 6.2 transfuse s/p2 unit PRBC, todayHb 7.2 Continue erythropoietin.MonitorH&H, transfuse as needed --Septic Emboli Hematology consult considering complex scenario considering the patients severe anemia --Persistent fevers; ID following, long-term antibiotics CT chest; Areas of consolidation left lower lobe consistant with pneumonitis /multiple nodular infiltrates with cavitation concern for septic emboli. Atypical infection could be considered,neoplastic disease or granulomatosis are also possible ID Rec SAMARIA, , the negative --Toxic Metabolic encephalopathy Probably secondary to sepsis, end-stage renal disease and uremia CT head negative, closely monitor, MRI brain negative. --MSSA bacteremia secondary to Vascular catheter infection Repeat blood cultures from 11/15/2018 negative. Got new HD cath placed. TTE unremarkable for any vegetations. Patient still with significant intermittent fever ID recommend to continue total 6 weeks of post HD Cefazolin upon discharge at [facility] ending 12/27/2018 (case management orders updated) --Sepsis. As above. Continue antibiotics per ID. Continue to monitor his fever curve. --ESRD on dialysis; nephrology following Avoid nephrotoxins, HD per schedule --Community-acquired pneumonia: Empiric antibiotics, f/u cultures --History of Dysphagia; speech evaluated the patient Cleared for oral diet, no symptoms of dysphagia --Hypertension Closely monitor blood pressures and adjust as needed --Thrombocytopenia; no evidence of bleeding Closely monitor platelets, consult hematology if needed --Hyperparathyropdisim --DVT prophylaxis; heparin renal dose. --Full code; Continue current management, Consults and recommendations noted and appreciated Awaiting acute rehabilitation placement Disposition; discharged to acute rehabilitation, pending approval Hospitalist Physical - Constitutional Vitals: Temp Pulse Resp BP Pulse Ox 98.4 F 94 H 18 134/65 100 12/01/18 02:00 12/01/18 02:00 12/01/18 02:00 12/01/18 02:00 12/01/18 02:00 General appearance: Present: mild distress, well-nourished, other Results - Labs CBC & Chem 7: 12/01/18 04:38 11/30/18 03:20 Labs: Laboratory Last Values WBC 8.5 K/mm3 (4.5-11.0) 12/01/18 04:38 RBC 2.62 M/mm3 (3.65-5.03) L 12/01/18 04:38 Hgb 7.5 gm/dl (11.8-15.2) L 12/01/18 04:38 Hct 22.2 % (35.5-45.6) L 12/01/18 04:38 MCV 85 fl (84-94) 12/01/18 04:38 MCH 29 pg (28-32) 12/01/18 04:38 MCHC 34 % (32-34) 12/01/18 04:38 RDW 15.7 % (13.2-15.2) H 12/01/18 04:38 Plt Count 211 K/mm3 (140-440) 12/01/18 04:38 Lymph % (Auto) 13.0 % (13.4-35.0) L 12/01/18 04:38 [place] % (Auto) 13.3 % (0.0-7.3) H 12/01/18 04:38 Eos % (Auto) 1.6 % (0.0-4.3) 12/01/18 04:38 Baso % (Auto) 0.8 % (0.0-1.8) 12/01/18 04:38 Lymph # 1.1 K/mm3 (1.2-5.4) L 12/01/18 04:38 [place] # 1.1 K/mm3 (0.0-0.8) H 12/01/18 04:38 Eos # 0.1 K/mm3 (0.0-0.4) 12/01/18 04:38 Baso # 0.1 K/mm3 (0.0-0.1) 12/01/18 04:38 Add Manual Diff Complete 11/17/18 06:09 Total Counted 100 11/17/18 06:09 Seg Neutrophils % 71.3 % (40.0-70.0) H 12/01/18 04:38 Seg Neuts % (Manual) 83.0 % (40.0-70.0) H 11/17/18 06:09 Band Neutrophils % 3.0 % 11/17/18 06:09 Lymphocytes % (Manual) 7.0 % (13.4-35.0) L 11/17/18 06:09 Reactive Lymphs % (Man) 0 % 11/17/18 06:09 Monocytes % (Manual) 4.0 % (0.0-7.3) 11/17/18 06:09 Eosinophils % (Manual) 0 % (0.0-4.3) 11/17/18 06:09 Basophils % (Manual) 0 % (0.0-1.8) 11/17/18 06:09 Metamyelocytes % 3.0 % 11/17/18 06:09 Myelocytes % 0 % 11/17/18 06:09 Promyelocytes % 0 % 11/17/18 06:09 Blast Cells % 0 % 11/17/18 06:09 Nucleated RBC % Not Reportable 11/17/18 06:09 Seg Neutrophils # 6.1 K/mm3 (1.8-7.7) 12/01/18 04:38 Seg Neutrophils # Man 13.1 K/mm3 (1.8-7.7) H 11/17/18 06:09 Band Neutrophils # 0.5 K/mm3 11/17/18 06:09 Lymphocytes # (Manual) 1.1 K/mm3 (1.2-5.4) L 11/17/18 06:09 Abs React Lymphs (Man) 0.0 K/mm3 11/17/18 06:09 Monocytes # (Manual) 0.6 K/mm3 (0.0-0.8) 11/17/18 06:09 Eosinophils # (Manual) 0.0 K/mm3 (0.0-0.4) 11/17/18 06:09 Basophils # (Manual) 0.0 K/mm3 (0.0-0.1) 11/17/18 06:09 Metamyelocytes # 0.5 K/mm3 11/17/18 06:09 Myelocytes # 0.0 K/mm3 11/17/18 06:09 Promyelocytes # 0.0 K/mm3 11/17/18 06:09 Blast Cells # 0.0 K/mm3 11/17/18 06:09 WBC Morphology Not Reportable 11/17/18 06:09 Hypersegmented Neuts Not Reportable 11/17/18 06:09 Hyposegmented Neuts Not Reportable 11/17/18 06:09 Hypogranular Neuts Not Reportable 11/17/18 06:09 Smudge Cells Not Reportable 11/17/18 06:09 Toxic Granulation Not Reportable 11/17/18 06:09 Toxic Vacuolation Not Reportable 11/17/18 06:09 Dohle Bodies Not Reportable 11/17/18 06:09 Pelger-Huet Anomaly Not Reportable 11/17/18 06:09 Fredi Rods Not Reportable 11/17/18 06:09 Platelet Estimate Consistent w auto 11/17/18 06:09 Clumped Platelets Not Reportable 11/17/18 06:09 Plt Clumps, EDTA Not Reportable 11/17/18 06:09 Large Platelets Few 11/17/18 06:09 Giant Platelets Not Reportable 11/17/18 06:09 Platelet Satelliting Not Reportable 11/17/18 06:09 Plt Morphology Comment Not Reportable 11/17/18 06:09 RBC Morphology Not Reportable 11/17/18 06:09 Dimorphic RBCs Not Reportable 11/17/18 06:09 Polychromasia Few 11/17/18 06:09 Hypochromasia Few 11/17/18 06:09 Poikilocytosis Not Reportable 11/17/18 06:09 Anisocytosis Not Reportable 11/17/18 06:09 Microcytosis Not Reportable 11/17/18 06:09 Macrocytosis Not Reportable 11/17/18 06:09 Spherocytes Not Reportable 11/17/18 06:09 Pappenheimer Bodies Not Reportable 11/17/18 06:09 Sickle Cells Not Reportable 11/17/18 06:09 Target Cells 1+ 11/17/18 06:09 Tear Drop Cells Few 11/17/18 06:09 Ovalocytes Not Reportable 11/17/18 06:09 Helmet Cells Not Reportable 11/17/18 06:09 [place] Bodies Not Reportable 11/17/18 06:09 [place] Rings Not Reportable 11/17/18 06:09 [place] Cells Not Reportable 11/17/18 06:09 Bite Cells Not Reportable 11/17/18 06:09 Crenated Cell Not Reportable 11/17/18 06:09 Elliptocytes Not Reportable 11/17/18 06:09 Acanthocytes (Spur) Not Reportable 11/17/18 06:09 Rouleaux Not Reportable 11/17/18 06:09 Hemoglobin C Crystals Not Reportable 11/17/18 06:09 Schistocytes Not Reportable 11/17/18 06:09 Malaria parasites Not Reportable 11/17/18 06:09 [place] Bodies Not Reportable 11/17/18 06:09 Hem Pathologist Commnt No 11/17/18 06:09 Sodium 131 mmol/L (137-145) L 11/30/18 03:20 Potassium 3.7 mmol/L (3.6-5.0) 11/30/18 03:20 Chloride 91.6 mmol/L (98-107) L 11/30/18 03:20 Carbon Dioxide 26 mmol/L (22-30) 11/30/18 03:20 Anion Gap 17 mmol/L 11/30/18 03:20 BUN 39 mg/dL (9-20) H 11/30/18 03:20 Creatinine 5.7 mg/dL (0.8-1.5) H 11/30/18 03:20 Estimated GFR 12 ml/min 11/30/18 03:20 BUN/Creatinine Ratio 7 % 11/30/18 03:20 Glucose 106 mg/dL (75-100) H 11/30/18 03:20 POC Glucose 232 (70-105) H 11/23/18 23:24 Lactic Acid 2.00 mmol/L (0.7-2.0) 11/11/18 17:45 Calcium 8.8 mg/dL (8.4-10.2) 11/30/18 03:20 Phosphorus 11.30 mg/dL (2.5-4.5) H 11/21/18 04:17 Total Bilirubin 0.80 mg/dL (0.1-1.2) 11/11/18 17:45 AST 35 units/L (5-40) 11/11/18 17:45 ALT 12 units/L (7-56) 11/11/18 17:45 Alkaline Phosphatase 88 units/L (35-129) 11/11/18 17:45 Ammonia 68.0 umol/L (25-60) H 11/17/18 11:41 Total Creatine Kinase 363 units/L (55-170) H 11/12/18 03:33 CK-MB (CK-2) 4.0 ng/mL (0.0-4.0) 11/12/18 03:33 CK-MB (CK-2) Rel Index 1.1 (0-4) 11/12/18 03:33 Troponin T 0.274 ng/mL (0.00-0.029) H* 11/12/18 03:33 Total Protein 8.0 g/dL (6.3-8.2) 11/11/18 17:45 Albumin 3.1 g/dL (3.9-5) L 11/11/18 17:45 Albumin/Globulin Ratio 0.6 % 11/11/18 17:45 Triglycerides 380 mg/dL (2-149) H 11/11/18 17:45 Cholesterol 117 mg/dL (50-199) 11/11/18 17:45 LDL Cholesterol Direct 8 mg/dL (50-130) L 11/11/18 17:45 HDL Cholesterol 8 mg/dL (40-59) L 11/11/18 17:45 Cholesterol/HDL Ratio 14.62 % 11/11/18 17:45 Vitamin B12 > 2000 pg/mL (211-911) H 11/17/18 06:09 Folate > 20 ng/mL (7.3-26.0) 11/17/18 06:09 Random Vancomycin 16.5 ug/mL (0-40.0) 11/20/18 05:51 Hepatitis A IgM Ab Non-reactive (NonReactive) 11/12/18 10:01 Hep Bs Antigen Non-reactive (Negative) 11/12/18 10:01 Hep B Core IgM Ab Non-reactive (NonReactive) 11/12/18 10:01 Hepatitis C Antibody Non-reactive (NonReactive) 11/12/18 10:01 Blood Type O POSITIVE 11/27/18 11:48 Antibody Screen Negative 11/27/18 11:48 Crossmatch See Detail 11/27/18 11:48 Active Medications - Current Medications Current Medications: Generic Name Dose Route Start Last Admin Trade Name Freq PRN Reason Stop Dose Admin Acetaminophen 650 mg 11/11/18 23:03 11/19/18 20:38 Tylenol [place] 650 mg Q4H PRN Administration Pain, Mild (1-3) Acetaminophen 650 mg 11/20/18 14:32 12/01/18 06:06 Tylenol PO 650 mg Q4H PRN Administration Fever >101 Docusate Sodium 100 mg 11/21/18 22:00 11/30/18 21:13 Colace PO 100 mg BID ISABELLA Administration Epoetin Jeramy 10,000 unit 11/17/18 12:46 11/25/18 11:42 Procrit IV 10,000 unit TuThSa ISABELLA Administration Cefazolin Sodium 1 gm in 50 mls @ 100 mls/hr 11/19/18 18:00 11/30/18 17:15 Ancef/Ns 1 Gm/50 Ml IV 12/27/18 18:29 100 mls/hr QPM ISABELLA Administration Protocol Sodium Chloride 100 mls @ 999 mls/hr 11/28/18 09:00 Nacl 0.9% IV SISSY PRN Hypotension Sodium Chloride 1,000 mls @ 42 mls/hr 11/30/18 10:00 11/30/18 09:10 Nacl 0.9% 1000 Ml IV 42 mls/hr DIRECT ISABELLA Administration Ondansetron HCl 4 mg 11/11/18 22:59 11/13/18 01:31 Zofran IV 4 mg Q4H PRN Administration Nausea And Vomiting Oxycodone/Acetaminophen 1 tab 11/16/18 16:10 11/30/18 20:54 Percocet 5/325 PO 1 tab Q6H PRN Administration Pain, Moderate (4-6) Polyethylene Glycol 17 gm 11/22/18 10:17 11/22/18 18:43 Miralax 3350 PO 17 gm BID PRN Administration Constipation Sevelamer Carbonate 2,400 mg 11/22/18 16:30 12/01/18 08:18 Renvela PO 2,400 mg AC ISABELLA Administration Sodium Chloride 10 ml 11/12/18 10:00 11/30/18 21:12 Sodium Chloride Flush Syringe 10 Ml IV 10 ml BID ISABELLA Administration Sodium Chloride 10 ml 11/11/18 22:59 11/18/18 13:50 Sodium Chloride Flush Syringe 10 Ml IV 10 ml PRN PRN Administration LINE FLUSH Nutrition/Malnutrition Assess - Dietary Evaluation Nutrition/Malnutrition Findings: Nutrition Notes Start: 11/12/18 14:51 Freq: Status: Active Protocol: Document 11/30/18 10:09 LM (Rec: 11/30/18 10:13 LM [email or web address]) Nutrition Notes Initial or Follow up Reassessment Current Diagnosis CKD (stage V CKD),Hypertension Other Pertinent Diagnosis ESRD on HD, Hyperparathyroidism, Dysphagia , Pneu Current Diet NPO Labs/Tests Na 131 BUN 39 Cr 5.7 BG 106 Pertinent Medications Reviewed Height 5 ft 6 in Weight 73.5 kg [place] Body Weight (kg) 64.54 BMI 26.1 Subjective/Other Information Pt not in room at time of visit and NPO due to SAMARIA today . Percent of energy/protein needs met: 0%/0% Burn Absent Trauma Absent Minimum of two criteria No #1 Nutrition Diagnosis Inadequate energy intake Diagnosis Progress(for reassessment Continues documentation) Is patient on ventilator? No Is Patient Ambulatory and/or Out of Bed No REE-([place]-St. Jeor-confined to bed) [phone] Calculation Used for Recommendations [facility] Additional Notes PRO needs: 88g (1.2g/kg) Fluid needs: 1-1.5L/day Nutrition Intervention Change Diet Order: Advance from NPO to renal diet Continue ONS when diet advances. Add Supplement/Snack (indicate name/kcal Nepro BID /protein ) Provides kCal: 850 Provides Protein (gm) 38 Goal #1 Meet at least 75% of energy and protein needs Anticipated Discharge Needs: Renal Diet and ONS BID Follow-Up By: 12/01/18 Additional Comments F/U for PO/ONS intakes
--- NOTE | 2018-12-01 08:29 | Post Anesthesia Evaluation ---
- Post Anesthesia Evaluation Patient Participated: Yes Airway Patent: Yes Stable Respiratory Function: Yes Nausea/Vomiting: No Temp > 96.8F: Yes Pain Manageable: Yes Adequeate Hydration: Yes Anesthesia Complications: No Block Receding Appropriately: Not Applicable Patient on Ventilator: No
[2018-12-01] MEDS: DOCUSATE SODIUM 100 MG CAP PO SCH (09:12)
--- NOTE | 2018-12-01 09:53 | Progress Note ---
Assessment and Plan - Patient Problems (1) End stage renal disease Current Visit: Yes Status: Acute Plan to address problem: cont HD on TTS schedule (2) Sepsis Current Visit: Yes Status: Acute Qualifiers: Sepsis type: methicillin susceptible Staphylococcus aureus Plan to address problem: MSSA bactermia in the setting of infected RIJ Permcath, s/p removal with repeat cultures x 2 sets negative, with new permcath placed. ID recommendations noted with outpatient IV antibiotics arranged with HD. CT chest/abdomen indicating evidence of septic emboli. TTE/SAMARIA reportedly unremarkable for vegetations (3) Pneumonia Current Visit: Yes Status: Acute Qualifiers: Pneumonia type: due to unspecified organism Laterality: unspecified laterality Lung location: unspecified part of lung Qualified Code(s): J18.9 - Pneumonia, unspecified organism Plan to address problem: Improved at this time. Antibiotics dosed per decreased renal function. (4) HTN (hypertension) Current Visit: Yes Status: Acute Plan to address problem: labile BP noted, recommend to hold off on all blood pressure medications at present time. Important that we maintain adequate MAP >65mmHg (5) Secondary hyperparathyroidism (of renal origin) Current Visit: Yes Status: Acute Plan to address problem: Will monitor his Ca, Phos, and iPTH levels inpatient. Continue home phos binder regimen. Subjective Date of service: 12/01/18 Principal diagnosis: end-stage renal disease with line sepsis Interval history: Pt awake alert, in no acute distress Objective - Vital Signs Vital signs: Vital Signs - 12hr 12/01/18 12/01/18 02:00 07:22 Temperature 98.4 F 99.4 F Pulse Rate 94 H 91 H Respiratory 18 20 Rate Blood Pressure 134/65 142/71 O2 Sat by Pulse 100 94 Oximetry - General Appearance General appearance: well-developed, well-nourished, appears stated age EENT: ATNC, PERRL, mucous membranes moist Neck: no JVD Respiratory: Present: Clear to Ascultation Cardiology: regular, S1S2 Gastrointestinal: normoactive bowel sounds Integumentary: no rash, other (no edema ) Neurologic: no focal deficit, alert and oriented x3, strength 5/5, CN 3-12 intact Psychiatric: mood/affect appropriate, cooperative - Lab 12/01/18 04:38 11/30/18 03:20 Most recent lab results Calcium 8.8 mg/dL (8.4-10.2) 11/30/18 03:20 Phosphorus 11.30 mg/dL (2.5-4.5) H 11/21/18 04:17 Medications & Allergies - Medications Allergies/Adverse Reactions: Allergies No Known Allergies Allergy (Verified 08/27/18 16:19) Home Medications: Home Medications Medication Instructions Recorded Confirmed Last Taken Type Acetaminophen [Acetaminophen 650 mg [place] Q4H PRN supp.rect 11/26/18 Unknown Rx SUPPOS] Docusate Sodium [Colace CAP] 100 mg PO BID capsule 11/26/18 Unknown Rx Epoetin Jeramy 10,000 Unit [Procrit] 10,000 unit IV TuThSa vial 11/26/18 Unknown Rx Polyethylene Glycol 3350 [Miralax 17 gm PO BID PRN powd.pack 11/26/18 Unknown Rx 3350] Sevelamer Carbonate [Renvela] 2,400 mg PO AC tablet 11/26/18 Unknown Rx oxyCODONE /ACETAMINOPHEN [Percocet 1 tab PO Q6H PRN tablet 11/26/18 Unknown Rx 5/325 mg] Active Medications: Generic Name Dose Route Start Last Admin Trade Name Freq PRN Reason Stop Dose Admin Acetaminophen 650 mg 11/11/18 23:03 11/19/18 20:38 Tylenol AK 650 mg Q4H PRN Administration Pain, Mild (1-3) Acetaminophen 650 mg 11/20/18 14:32 12/01/18 06:06 Tylenol PO 650 mg Q4H PRN Administration Fever >101 Docusate Sodium 100 mg 11/21/18 22:00 12/01/18 09:12 Colace PO 100 mg BID ISABELLA Administration Epoetin Jeramy 10,000 unit 11/17/18 12:46 11/25/18 11:42 Procrit IV 10,000 unit TuThSa ISABELLA Administration Cefazolin Sodium 1 gm in 50 mls @ 100 mls/hr 11/19/18 18:00 11/30/18 17:15 Ancef/Ns 1 Gm/50 Ml IV 12/27/18 18:29 100 mls/hr QPM ISABELLA Administration Protocol Sodium Chloride 100 mls @ 999 mls/hr 11/28/18 09:00 Nacl 0.9% IV SISSY PRN Hypotension Sodium Chloride 1,000 mls @ 42 mls/hr 11/30/18 10:00 09/30/19 09:10 Nacl 0.9% 1000 Ml IV 42 mls/hr DIRECT ISABELLA Administration Ondansetron HCl 4 mg 11/11/18 22:59 11/13/18 01:31 Zofran IV 4 mg Q4H PRN Administration Nausea And Vomiting Oxycodone/Acetaminophen 1 tab 11/16/18 16:10 11/30/18 20:54 Percocet 5/325 PO 1 tab Q6H PRN Administration Pain, Moderate (4-6) Polyethylene Glycol 17 gm 11/22/18 10:17 11/22/18 18:43 Miralax 3350 PO 17 gm BID PRN Administration Constipation Sevelamer Carbonate 2,400 mg 11/22/18 16:30 12/01/18 08:18 Renvela PO 2,400 mg AC ISABELLA Administration Sodium Chloride 10 ml 11/12/18 10:00 12/01/18 09:12 Sodium Chloride Flush Syringe 10 Ml IV 10 ml BID ISABELLA Administration Sodium Chloride 10 ml 11/11/18 22:59 11/18/18 13:50 Sodium Chloride Flush Syringe 10 Ml IV 10 ml PRN PRN Administration LINE FLUSH
[2018-12-01] MEDS ORDERED: SODIUM CHLORIDE*PRIMING MACHINE ONLY FOR DIALYSIS MC ONE (12:33)
[2018-12-01] MEDS: EPOETIN ALFA 10,000 UNIT/1 ML INJ IV SCH ×2 (12:39→12:40)
--- NOTE | 2018-12-01 13:53 | Discharge Summary ---
Providers - Providers Date of Admission: 11/11/18 21:42 Attending physician: VINICIUS PURDY MD 11/11/18 20:13 Consult to Physician [CONS] Routine Comment: Dr. Lopez spoke with Dr. Arvizu @ 2010 Consulting Provider: MONET ARVIZU Physician Instructions: Reason For Exam: hd. esrd. hyperkalemia 11/11/18 21:13 Speech Therapy Evaluation and Treat [CONS] Stat Reason For Exam: fail swallow screen 11/12/18 14:45 Consult to Physician [CONS] Routine Comment: Consulting Provider: LARRY SHINE Physician Instructions: Reason For Exam: infefcted permcath 11/12/18 18:44 Consult to Physician [CONS] Routine Comment: Consulting Provider: DRAKE LYLES Physician Instructions: Reason For Exam: Infected permacath/Sepsis 11/15/18 07:45 Consult to Physician [CONS] Routine Comment: called answ. serv./ portillo Consulting Provider: DRAKE LYLES Physician Instructions: Reason For Exam: Infeced perm cath cult/Staph aureus 11/20/18 08:28 Physical Therapy Evaluation and Treat [CONS] Routine Comment: Reason For Exam: deconditioning 11/20/18 12:27 Consult to Case Management [CONS] Routine Services Needed at Discharge: Other Notified:: SIMON Comment:: IV Cefazolin at dialysis Additional Physician Instructions: [facility] ([facility] O: [phone] F: [phone] OUTPATIENT PARENTERAL ANTIBIOTIC THERAPY (OPAT) ORDERS Diagnoses: MSSA bacteremia, CLABSI Antimicrobial administration: IV Cefazolin dosed post HD as 2 gm qTuesday, 2 gm qThursday and 3 gm qSaturday at the dialysis center. Duration is 6 weeks ending 12/27/2018. Lines: Maintain IV access with weekly dressing changes and locks per protocol. Lab monitoring: - CBC with differential, Creatinine, ALT, AST, CRP once a week while on IV antibiotics. Please fax results to [phone] and call [phone] for critical lab results. Belinda Braun MD [facility] 11/25/18 10:59 Occupational Therapy Evaluate and Treat [CONS] Routine Comment: Reason For Exam: Debility 10/01/19 08:24 Consult to Physician [CONS] Routine Comment: Consulting Provider: GIGI KHALIL Physician Instructions: Reason For Exam: septic emboli Primary care physician: SIGNAL HELPER Hospitalization Reason for admission: septic emboli Condition: Stable Hospital course: Per admission documentation. 73 year old man with hypertension,ESRD on dialysdis, hyperparathyroidism, OA comes to the ER for evaluation. He is a poor historian, complaining of shortness of breath. He was noted to be febrile in the emergency room, failed his swallow screen. Chest x-ray shows bilateral pneumonia, he was started on cefepime --Acute on Chronic Anemia of CKD Hb 6.2 transfuse s/p2 unit PRBC, todayHb 7.2 Continue erythropoietin. MonitorH&H, transfuse as needed --Septic Emboli Hematology consult considering complex scenario considering the patients severe anemia They will follow with the patient in the Rehab unit --Persistent fevers; ID following, long-term antibiotics CT chest; Areas of consolidation left lower lobe consistant with pneumonitis /multiple nodular infiltrates with cavitation concern for septic emboli. Atypical infection could be considered,neoplastic disease or granulomatosis are also possible ID Rec SAMARIA, , the negative --Toxic Metabolic encephalopathy Probably secondary to sepsis, end-stage renal disease and uremia CT head negative, closely monitor, MRI brain negative. --MSSA bacteremia secondary to Vascular catheter infection Repeat blood cultures from 11/15/2018 negative. Got new HD cath placed. TTE unremarkable for any vegetations. Patient still with significant intermittent fever ID recommend to continue total 6 weeks of post HD Cefazolin upon discharge at the dialysis center ending 12/27/2018 (case management orders updated) --Sepsis. As above. Continue antibiotics per ID. Continue to monitor his fever curve. --ESRD on dialysis; nephrology following Avoid nephrotoxins, HD per schedule --Community-acquired pneumonia: Empiric antibiotics, f/u cultures --History of Dysphagia; speech evaluated the patient Cleared for oral diet, no symptoms of dysphagia --Hypertension Closely monitor blood pressures and adjust as needed --Thrombocytopenia; no evidence of bleeding Closely monitor platelets, consult hematology if needed --Hyperparathyropdisim Disposition: [id number]/[id number] INPT REHAB FACILITY Time spent for discharge: 35 mins Core Measure Documentation - Palliative Care Palliative Care/ Comfort Measures: Not Applicable - Core Measures Any of the following diagnoses?: DVT/PE - VTE Discharge Requirements Deep Vein Thrombosis/Pulmonary Embolism Present on Admission: Yes Has pt received <5 days of overlap therapy or INR<2.0: Yes Anticoagulant overlap therapy prescribed at discharge: Yes Exam - Physical Exam Narrative exam: General appearance: Present: mild distress, well-nourished, other - EENT Eyes: Present: PERRL, EOM intact - Neck Neck: Present: supple, normal ROM - Respiratory Respiratory effort: normal Respiratory: bilateral: diminished, negative: rales, rhonchi, wheezing - Cardiovascular Rhythm: regular Heart Sounds: Present: S1 & S2 - Extremities Extremities: no ischemia, No edema - Abdominal General gastrointestinal: soft, non-tender, non-distended, normal bowel sounds - Integumentary Integumentary: Present: clear, warm - Psychiatric Psychiatric: appropriate mood/affect, cooperative - Neurologic Neurologic: CNII-XII intact, moves all extremities - Constitutional Vitals: Temp Pulse Resp BP Pulse Ox 99.1 F 95 H 20 141/72 94 12/01/18 09:40 12/01/18 13:00 12/01/18 10:00 12/01/18 13:00 12/01/18 10:00 Plan Activity: advance as tolerated, fall precautions Diet: renal Special Instructions: record daily BP diary, record blood sugar diary Plan of Treatment: CONTINUE ABX FOR 6 WEEKS. ABX PER ID Follow up with: BETTY DE LEÓN MD [Primary Care Provider] - 3-5 Days DRAKE LYLES MD [Staff Physician] - 7 Days JAJA CHAVIS MD [Staff Physician] - 7 Days GIGI KHALIL MD [Staff Physician] - 7 Days
[2018-12-01 14:36] VITALS: BP 130/72
== END 2018-12-01 15:20 | DRG 314 ==
LOC: ED 16:26 → 4A 21:42 → IMCU 11-12 22:12 → 2B-ACE 11-14 15:27
PROVIDERS: ADMIT Internal Medicine; ATTEND Internal Medicine
PROC: 05PYX3Z Removal of Infusion Device from Upper Vein, External Approach (ICD-10-PCS; principal; 2018-11-12)
PROC: 3E0234Z Introduction of Serum, Toxoid and Vaccine into Muscle, Percutaneous Approach (ICD-10-PCS; 2018-11-12)
PROC: 5A1D70Z Performance of Urinary Filtration, Intermittent, Less than 6 Hours Per Day (ICD-10-PCS; 2018-11-12)
PROC: 06HY33Z Insertion of Infusion Device into Lower Vein, Percutaneous Approach (ICD-10-PCS; 2018-11-13)
PROC: B51B1ZA Fluoroscopy of Right Lower Extremity Veins using Low Osmolar Contrast, Guidance (ICD-10-PCS; 2018-11-13)
PROC: B54BZZA Ultrasonography of Right Lower Extremity Veins, Guidance (ICD-10-PCS; 2018-11-13)
PROC: 5A1D70Z Performance of Urinary Filtration, Intermittent, Less than 6 Hours Per Day (ICD-10-PCS; 2018-11-13)
PROC: 5A1D70Z Performance of Urinary Filtration, Intermittent, Less than 6 Hours Per Day (ICD-10-PCS; 2018-11-14)
PROC: 0JH63XZ Insertion of Tunneled Vascular Access Device into Chest Subcutaneous Tissue and Fascia, Percutaneous Approach (ICD-10-PCS; 2018-11-17)
PROC: 02H633Z Insertion of Infusion Device into Right Atrium, Percutaneous Approach (ICD-10-PCS; 2018-11-17)
PROC: B5181ZA Fluoroscopy of Superior Vena Cava using Low Osmolar Contrast, Guidance (ICD-10-PCS; 2018-11-17)
PROC: B544ZZA Ultrasonography of Left Jugular Veins, Guidance (ICD-10-PCS; 2018-11-17)
PROC: 5A1D70Z Performance of Urinary Filtration, Intermittent, Less than 6 Hours Per Day (ICD-10-PCS; 2018-11-17)
PROC: 5A1D70Z Performance of Urinary Filtration, Intermittent, Less than 6 Hours Per Day (ICD-10-PCS; 2018-11-18)
PROC: 5A1D70Z Performance of Urinary Filtration, Intermittent, Less than 6 Hours Per Day (ICD-10-PCS; 2018-11-19)
PROC: 5A1D70Z Performance of Urinary Filtration, Intermittent, Less than 6 Hours Per Day (ICD-10-PCS; 2018-11-21)
PROC: 5A1D70Z Performance of Urinary Filtration, Intermittent, Less than 6 Hours Per Day (ICD-10-PCS; 2018-11-23)
PROC: 5A1D70Z Performance of Urinary Filtration, Intermittent, Less than 6 Hours Per Day (ICD-10-PCS; 2018-11-24)
PROC: 5A1D70Z Performance of Urinary Filtration, Intermittent, Less than 6 Hours Per Day (ICD-10-PCS; 2018-11-25)
PROC: 5A1D70Z Performance of Urinary Filtration, Intermittent, Less than 6 Hours Per Day (ICD-10-PCS; 2018-11-26)
PROC: 30233N1 Transfusion of Nonautologous Red Blood Cells into Peripheral Vein, Percutaneous Approach (ICD-10-PCS; 2018-11-27)
PROC: 5A1D70Z Performance of Urinary Filtration, Intermittent, Less than 6 Hours Per Day (ICD-10-PCS; 2018-11-28)
PROC: 5A1D70Z Performance of Urinary Filtration, Intermittent, Less than 6 Hours Per Day (ICD-10-PCS; 2018-12-01)
DX: T82.7XXA Infection and inflammatory reaction due to other cardiac and vascular devices, implants and grafts, initial encounter (principal); J18.9 Pneumonia, unspecified organism; N18.6 End stage renal disease; A41.02 Sepsis due to Methicillin resistant Staphylococcus aureus; G92 Toxic encephalopathy; I12.0 Hypertensive chronic kidney disease with stage 5 chronic kidney disease or end stage renal disease; I76 Septic arterial embolism; N25.81 Secondary hyperparathyroidism of renal origin; T80.211A Bloodstream infection due to central venous catheter, initial encounter; E87.5 Hyperkalemia; M19.90 Unspecified osteoarthritis, unspecified site; R13.10 Dysphagia, unspecified; R09.02 Hypoxemia; I25.10 Atherosclerotic heart disease of native coronary artery without angina pectoris; D69.6 Thrombocytopenia, unspecified; D63.1 Anemia in chronic kidney disease; Z82.49 Family history of ischemic heart disease and other diseases of the circulatory system; Z83.3 Family history of diabetes mellitus; Z79.899 Other long term (current) drug therapy; Z99.2 Dependence on renal dialysis; Z23 Encounter for immunization
CPT/HCPCS: 36415; 36556; 36558; 70450; 70551; 71045; 71260; 74177; 76770; 76937; 77001; 80048; 80053; 80061; 80074; 80202; 82140; 82550; 82553; 82607; 82747; 82962; 84100; 84484; 85007; 85025; 85027; 86850; 86900; 86901; 86920; 87040; 87076; 87116; 87186; 90732; 93005; 93010; 93306; 93312; 93320; 93325; 94760; G0378; A6250; C1750; C1752; J0610; J0690; J0692; J0885; J1644; J1815; J1956; J2060; J2250; J2405; J2704; J2930; J3010; J3370; J7030; J7040; J7050; P9016; Q9967

== ENCOUNTER 2018-12-01 10:36 | Inpatient (IN) | payer BC, MEDICARE ==
[2018-12-01] MEDS ORDERED: SODIUM CHLORIDE FLUSH SYRINGE 10 ML IV PRN (11:37)
[2018-12-01] MEDS ORDERED: NACL 0.9% IV PRN (11:41)
[2018-12-01] MEDS ORDERED: ANCEF/NS 1 GM/50 ML 1 GM/50 ML BAG IV NR (18:00)
[2018-12-01] MEDS: RENVELA PO SCH (18:51)
[2018-12-01] MEDS: PERCOCET 5/325 PO PRN (19:05)
[2018-12-01] MEDS: TYLENOL PO PRN (20:13)
[2018-12-01] MEDS: DULCOLAX PR PRN (21:53)
[2018-12-01] MEDS ORDERED: FLEET PR ONE (23:59)
[2018-12-02] MEDS: PERCOCET 5/325 PO PRN ×3 (00:05→23:20)
[2018-12-02 06:37] LABS: Albumin 1.8 g/dL (3.9-5); BUN/Creatinine Ratio 6; Blood Urea Nitrogen 28 mg/dL (9-20); Calcium 8.8 mg/dL (8.4-10.2); Hemolysis Index 37
[2018-12-02 06:37] LABS: Hematocrit 22.2 % (35.5-45.6); Hemoglobin 7.4 gm/dl (11.8-15.2); Mean Corpuscular HGB Conc 33 % (32-34); Mean Corpuscular Volume 85 fl (84-94); Platelet Count 240 K/mm3 (140-440); Red Blood Count 2.62 M/mm3 (3.65-5.03); Red Cell Distribution Width 15.9 % (13.2-15.2)
[2018-12-02 06:40] LABS: Alanine Aminotransferase < 5 units/L (7-56)
[2018-12-02] MEDS: RENVELA PO SCH ×3 (09:21→18:17)
[2018-12-02] MEDS: MIRALAX 3350 PO SCH (09:21)
[2018-12-02] MEDS ORDERED: NACL 0.9% 100 ML IV PRN (09:33)
--- NOTE | 2018-12-02 10:01 | Consultation ---
History of Present Illness - Reason for Consult Consult date: 12/02/18 end stage renal disease Requesting physician: ALEE NELSON III - History of Present Illness This is a 73 y/o male, with h/o ESRD, well known to outpatient dialysis unit, with h/o HTN, who dialyzes via a RIJ permcath, who was initially hospitalized at [facility] from 11/12 - 12/01 after presenting with worsening shortness of breath and AMS. Chest xray was concerning for pneumonia vs possible volume overload. pt was found to have MSSA bactermia in the setting of infected RIJ Permcath, s/p removal RIJ permcath with repeat cultures x 2 sets negative, with new permcath placed. CT chest/abdomen showed evidence of septic emboli, and patient underwent TTE/SAMARIA which did not reveal vegetations. ID recommended to continue ABX treatment with IV cefazoline daily qPM x 6weeks and upon discharge transition to post HD cefazoline until 12/27/18. pt is now transferred to inpatient rehab and renal consult is requested for management of ESRD/HD. Past History Past Medical History: CAD, ESRD, hypertension Past Surgical History: Other (permcath placement ) Social history: denies: smoking, alcohol abuse, prescription drug abuse, IV drug use Family history: diabetes, hypertension Medications and Allergies Allergies Allergy/AdvReac Type Severity Reaction Status Date / Time No Known Allergies Allergy Verified 08/27/18 16:19 Home Medications Medication Instructions Recorded Confirmed Last Taken Type Acetaminophen [Acetaminophen 650 mg [place] Q4H PRN supp.rect 11/26/18 12/02/18 12/01/18 Rx SUPPOS] Docusate Sodium [Colace CAP] 100 mg PO BID capsule 11/26/18 12/02/18 12/01/18 Rx Epoetin Jeramy 10,000 Unit [Procrit] 10,000 unit IV TuThSa vial 11/26/18 12/02/18 12/01/18 Rx Polyethylene Glycol 3350 [Miralax 17 gm PO BID PRN powd.pack 11/26/18 12/02/18 12/01/18 Rx 3350] Sevelamer Carbonate [Renvela] 2,400 mg PO AC tablet 11/26/18 12/02/18 12/01/18 Rx oxyCODONE /ACETAMINOPHEN [Percocet 1 tab PO Q6H PRN tablet 11/26/18 12/02/18 12/01/18 Rx 5/325 mg] Active Meds: Active Medications Acetaminophen (Tylenol) 650 mg PO Q6H PRN PRN Reason: Non Cardiac Pain or Temp>100.5 Last Admin: 12/01/18 20:13 Dose: 650 mg Documented by: Bisacodyl (Dulcolax) 10 mg NJ QDAY PRN PRN Reason: Constipation Last Admin: 12/01/18 21:53 Dose: 10 mg Documented by: Epoetin Jeramy (Procrit) 10,000 unit IV [facility] Cefazolin Sodium (Ancef/Ns 1 Gm/50 Ml) 1 gm in 50 mls @ 100 mls/hr IV QPM [facility]; Protocol Stop: 12/27/18 18:29 Sodium Chloride (Nacl 0.9%) 100 mls @ 999 mls/hr IV SISSY PRN PRN Reason: Hypotension Ondansetron HCl (Zofran Odt) 4 mg PO Q8H PRN PRN Reason: Nausea And Vomiting Oxycodone/Acetaminophen (Percocet 5/325) 1 tab PO Q6H PRN PRN Reason: Pain, Moderate (4-6) Last Admin: 12/02/18 00:05 Dose: 1 tab Documented by: Polyethylene Glycol (Miralax 3350) 17 gm PO QDAY [facility] Last Admin: 12/02/18 09:21 Dose: 17 gm Documented by: Sevelamer Carbonate (Renvela) 2,400 mg PO [facility] Last Admin: 12/02/18 09:21 Dose: 2,400 mg Documented by: Sodium Chloride (Sodium Chloride Flush Syringe 10 Ml) 10 ml IV PRN PRN PRN Reason: LINE FLUSH Review of Systems Constitutional: fatigue, weakness Exam - Vital Signs Vital signs: Vital Signs Temp Pulse Resp BP 98.3 F 109 H 96 H 140/62 12/01/18 17:00 12/01/18 17:00 12/01/18 17:00 12/01/18 17:00 - General Appearance General appearance: well-developed, well-nourished, appears stated age EENT: ATNC, PERRL, mucous membranes moist Neck: Present: neck supple Respiratory: Clear to Ascultation Heart: regular, S1S2 Gastrointestinal: Present: normoactive bowel sounds Integumentary: no rash, other Neurologic: no focal deficit, alert and oriented x3, CN 3-12 intact Psychiatric: mood/affect appropriate, cooperative Results - Lab Results 12/02/18 06:16 12/02/18 05:42 Most recent lab results Calcium 8.8 mg/dL (8.4-10.2) 12/02/18 05:42 Assessment and Plan - Patient Problems (1) End stage renal disease Current Visit: No Status: Acute Plan to address problem: will arrange maintenance HD on TTS schedule (2) Sepsis Current Visit: No Status: Acute Qualifiers: Sepsis type: methicillin susceptible Staphylococcus aureus Plan to address problem: h/o MSSA bactermia in the setting of infected RIJ Permcath, s/p removal with repeat cultures x 2 sets negative, s/p new permcath placement. Cont ABXs as per ID recommendations. CT chest/abdomen indicating evidence of septic emboli. TTE/SAMARIA were unremarkable for vegetations (3) Pneumonia Current Visit: No Status: Acute Qualifiers: Pneumonia type: due to unspecified organism Laterality: unspecified laterality Lung location: unspecified part of lung Qualified Code(s): J18.9 - Pneumonia, unspecified organism Plan to address problem: Improved at this time. 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 Continue home phos binder regimen.
[2018-12-02] MEDS: TYLENOL PO PRN (15:32)
--- NOTE | 2018-12-02 15:35 | History and Physical Report ---
History of Present Illness Date: 12/02/18 Referring Facility: [facility] Date of admission: 12/01/18 16:39 Chief Complaint: Debility, weakness, sepsis History of present illness: 73-year-old male presented to the ER on November 11 with shortness of breath. He was noted to be febrile. Chest x-ray showed bilateral pneumonia and he was started on cefepime. He was noted to have purulent drainage from his dialysis catheter. It was removed and replaced. He developed altered mental status, MRI was negative. Infectious disease was consulted and started the patient on cefazolin which will be continued until 12/27/2018. His leukocytosis improved however he continued to spike occasional fevers even on antibiotics. Recommendation was made to obtain CT chest abdomen and pelvis which showed septic emboli in the bilateral lungs. SAMARIA was performed looking for cardiac vegetations but none were found. He remains fairly weak and will need continued close monitoring for antibiotic therapy, fevers and leukocytosis, end-stage renal disease and other possible worsening of condition. His primary concern when initially seeing him was constipation, I ordered an enema and suppository last night with fairly good results. We'll continue to monitor his bowel improvement. After the patient was medically stabilized he was transferred for further rehabilitation. All available medical records have been reviewed. Plan of care was discussed with patient. Past History Past Medical History: CAD, ESRD, hypertension, other (hyperparathyroidism, osteoarthritis) Past Surgical History: Other (permcath placement ) Social history: full code. denies: smoking, alcohol abuse, prescription drug abuse, IV drug use Family history: diabetes, hypertension Medications and Allergies Allergies Allergy/AdvReac Type Severity Reaction Status Date / Time No Known Allergies Allergy Verified 08/27/18 16:19 Home Medications Medication Instructions Recorded Confirmed Last Taken Type Acetaminophen [Acetaminophen 650 mg [place] Q4H PRN supp.rect 11/26/18 12/02/18 12/01/18 Rx SUPPOS] Docusate Sodium [Colace CAP] 100 mg PO BID capsule 11/26/18 12/02/18 12/01/18 Rx Epoetin Jeramy 10,000 Unit [Procrit] 10,000 unit IV TuThSa vial 11/26/18 12/02/18 12/01/18 Rx Polyethylene Glycol 3350 [Miralax 17 gm PO BID PRN powd.pack 11/26/18 12/02/1812/01/19 Rx 3350] Sevelamer Carbonate [Renvela] 2,400 mg PO AC tablet 11/26/18 12/02/18 12/01/18 Rx oxyCODONE /ACETAMINOPHEN [Percocet 1 tab PO Q6H PRN tablet 11/26/18 12/02/18 12/01/18 Rx 5/325 mg] Active Meds: Active Medications Acetaminophen (Tylenol) 650 mg PO Q6H PRN PRN Reason: Non Cardiac Pain or Temp>100.5 Last Admin: 12/01/18 20:13 Dose: 650 mg Documented by: Bisacodyl (Dulcolax) 10 mg TX QDAY PRN PRN Reason: Constipation Last Admin: 12/01/18 21:53 Dose: 10 mg Documented by: Epoetin Jeramy (Procrit) 10,000 unit IV [facility] Cefazolin Sodium (Ancef/Ns 1 Gm/50 Ml) 1 gm in 50 mls @ 100 mls/hr IV QPM [facility]; Protocol Stop: 12/27/18 18:29 Sodium Chloride (Nacl 0.9%) 100 mls @ 999 mls/hr IV SISSY PRN PRN Reason: Hypotension Ondansetron HCl (Zofran Odt) 4 mg PO Q8H PRN PRN Reason: Nausea And Vomiting Oxycodone/Acetaminophen (Percocet 5/325) 1 tab PO Q6H PRN PRN Reason: Pain, Moderate (4-6) Last Admin: 12/02/18 11:22 Dose: 1 tab Documented by: Polyethylene Glycol (Miralax 3350) 17 gm PO QDAY [facility] Last Admin: 12/02/18 09:21 Dose: 17 gm Documented by: Sevelamer Carbonate (Renvela) 2,400 mg PO AC [facility] Last Admin: 12/02/18 11:22 Dose: 2,400 mg Documented by: Sodium Chloride (Sodium Chloride Flush Syringe 10 Ml) 10 ml IV PRN PRN PRN Reason: LINE FLUSH Review of Systems All systems: negative (ROS negative for 12 systems except as noted below with pertinent positives and negatives.) Ears, nose, mouth and throat: no decreased hearing, no dysphagia Cardiovascular: no chest pain, no rapid/irregular heart beat, no edema Respiratory: shortness of breath, respiratory infections, no cough with sputum Gastrointestinal: constipation, no abdominal pain, no nausea, no vomiting, no diarrhea Genitourinary Male: no dysuria, no hematuria Musculoskeletal: limitation of motion, gait dysfunction, arthritis Integumentary: no rash, no pruritis, no wounds Neurological: weakness, no parathesias Psychiatric: no anxiety, no insomnia Exam - Exam Narrative exam: MUSCULOSKELETAL SPECIALTY EXAM CONSTITUTIONAL: Well developed, well nourished, appropriately groomed LYMPHATIC: No appreciable abnormalities palpable in neck EENT: Visual cochran full to confrontation. EOMI. Oropharynx clear. Hearing intact to soft voice RESPIRATORY: Clear to auscultation bilaterally, no increased work of breathing, on O2 NC 2L CARDIOVASCULAR: Regular Rate/ Rhythm, no swelling, edema or tenderness in BUE or BLE. Pulses palpable in all extremities. All extremities warm. GI: + bowel sounds, soft, NTTP, distended. INTEGUMENTARY: Normal, no lesion, rash, masses or bruising noted in extremities. MUSCULOSKELETAL: BUE and BLE normal without defect, crepitus, subluxation, effusion, arthritic changes or TTP. BUE 3/5, reduced ROM, with normal tone. BLE 3/5 reduced ROM, with normal tone NEURO: CN 2-12 grossly intact. Sensation intact in all extremities. Reflexes 1+ bilaterally at biceps, brachioradialis and patella. No clonus at ankles. Coordination intact in BUE. No tremor noted in 4 extremities. POSTURE and GAIT: Sitting posture impaired. Balance decreased. Gait deferred until seen with therapy. PSYCH: Alert, oriented x3, affect appears normal. Insight appears intact. - Constitutional Vitals: Vital Signs - 12hr 12/02/18 12/02/18 12/02/18 05:11 06:59 09:39 Temperature 36.8 C 36.5 C Pulse Rate 95 H 94 H Respiratory 19 22 Rate Blood Pressure 145/66 136/61 O2 Sat by Pulse 96 94 96 Oximetry 12/02/18 11:17 Temperature 36.8 C Pulse Rate 92 H Respiratory 20 Rate Blood Pressure 130/61 O2 Sat by Pulse 100 Oximetry - Allied health notes FIMS assesment as documented by PT/OT/ST: Social interaction/Memory/Problem solving Social Interaction FIM Score 5. Supervision (Needs supv. <10%. Needs encouragement to participate.) Memory FIM Score 5. Supervision (Needs cueing <10%, stressful/ unfamiliar situations.) Problem Solving FIM Score 5. Supervision (Needs cueing <10% to solve routine problems.) - Labs CBC & Chem 7: 12/02/18 06:16 12/02/18 05:42 Labs: Laboratory Results - last 72 hr 12/02/18 12/02/18 05:42 06:16 WBC 10.5 RBC 2.62 L Hgb 7.4 L Hct 22.2 L MCV 85 MCH 28 MCHC 33 RDW 15.9 H Plt Count 240 Sodium 136 L Potassium 3.9 Chloride 96.4 L Carbon Dioxide 24 Anion Gap 20 BUN 28 H Creatinine 4.5 H Estimated GFR 16 BUN/Creatinine Ratio 6 Glucose 95 Calcium 8.8 Total Bilirubin 0.60 AST 31 ALT < 5 L Alkaline Phosphatase 112 Total Protein 8.2 Albumin 1.8 L Albumin/Globulin Ratio 0.3 Assessment and Plan Assessment and plan: Patient was assessed and evaluated for Acute Inpatient Rehab Unit. Due to the patients above-mentioned medical complexity, along with decreased functional mobility and self care, this patient continues to require and be appropriate for a comprehensive, multidisciplinary [id number] rehabilitation program. These needs cannot be met in an outpatient or other less intensive setting. The patient would continue to benefit from skilled therapy intervention for at least 3 hours per day, five days a week, with techniques specific to the needs of the patient to improve function, activities of daily living, and reintegration into the community. The patient continues to require: -- OT to improve ROM, self-care, and learn use of adaptive equipment -- PT to improve strength and balance, functional transfers, and ambulation with energy conservation techniques to improve functional mobility -- 24 hour RN to ensure and prevent skin breakdown, promote progressive independence while ensuring safety, ensure education regarding medications, and incorporation of the rehabilitation at the bedside -- 24 hour Web Development Intern to coordinate this interdisciplinary program, and to manage/prevent complications as a result of the patients medical comorbidities. -Plan of care by day 4 -Weekly team conferences With such a program, there is a reasonable certainty that the goals individualized for this patient can be achieved within the specified length of stay. PNA and Sepsis with persistent fevers on abx: cont cefazolin until 12/27/18. Monitor for any signs of worsening pneumonia and are leukocytosis. Expect to continue seeing the intermittent fevers and will treat with Tylenol as needed. Patient does have bilateral pulmonary septic emboli. SAMARIA did not show vegetations. ESRD on HD: Continue hemodialysis per nephrology and renally dose medications including antibiotics. Hypertension: Continue medications, adjust as needed for normotension Anemia: Continue to monitor hemoglobin. Continue erythropoietin. Transfuse as needed Thyroid nodule seen on CT: We'll schedule follow-up. Z73.6 ADL dysfunction: OT will work on improving ability to perform ADLs (including assistive devices) to increase independence and decrease caregiver burden and improve functional transfers and mobility training. R26.2 Difficulty walking: PT will work on gait training and proper use of assistive devices and advance as appropriate to use of stairs and outside ambulation on uneven surfaces. R26.81 Unsteadiness on feet: PT will work on improving static and dynamic sitting and standing balance as well as proper use of assistive devices to decrease risk of falls. R26.89 Abnormality of gait: PT will work to improve safety and efficiency of gait through neuromotor training and gait training along with instruction on proper use of assistive devices. M62.81 Muscle weakness: PT & OT will work on strengthening exercises to improve functional strength including mixture of closed and open kinetic chain exercises. R53.81 Debility: PT & OT will work on improving overall functional status to improve participation with ADLs, mobility and social involvement. R53.83 Fatigue: PT & OT will work on improving endurance through aerobic exercises and therapeutic activity while monitoring patients tolerance for activity and vital signs as needed. DVT ppx: SCDs, Will start heparin once Hgb has improved Pain: Continue physical modalities in therapy and pain medications as needed to achieve functional pain control. Sleep: Monitor and address as needed. Bowel: Monitor and address as needed. Appetite: Monitor and address as needed. Discharge planning: Pending therapy progress and care plan meeting. Will continue discussion with therapy team, SW, patient and family. Restrictions/ Precautions: Falls WB status: FWB Functional Hx: ADLs: Independent Cognition: Independent Mobility: No AD Barriers to Discharge: Decreased mobility and ability to perform self care, balance deficits, weakness Estimated Length of Stay: 1418 days Discharge Destination: Home with family POST ADMISSION PHYSICIAN EVALUATION I have examined the patient and find that functional status, medical condition and appropriateness for IRF admission are essentially unchanged from those described in the preadmission screening. Will monitor for worsening infection, pneumonia, anemia, DVT/PE, bowel and bladder complications and complications due to ESRD, hypertension and electrolyte abnormalities. Will attempt to avoid occurrence of these issues or treat them if they present themselves.
[2018-12-02] MEDS: ANCEF/NS 1 GM/50 ML 1 GM/50 ML BAG IV SCH (18:16)
[2018-12-02] MEDS ORDERED: NACL 0.9% 250ML 250 ML ONE (18:21)
--- NOTE | 2018-12-02 21:26 | Event Note ---
Date: 12/02/18
[2018-12-03 06:49] LABS: Calcium 8.7 mg/dL (8.4-10.2)
--- NOTE | 2018-12-03 07:14 | Hem/Onc Progress Note ---
Assessment and Plan 1. Based on CT finding, it is septic emboli and not a thrombotic event. Anticoagulation is less likely to be helpful. 2. Anemia of chronic kidney disease, may have a role. This also can be multifactorial. We will follow 3. History of leukocytosis. 4. History of high PTH. 5. End-stage renal disease, on dialysis. 6. History of fever. 7. Fever issues. 8. Antibiotic and physical Therapy. 9. History of hypertension. 10. Pt has Permacath for dialysis issues. I will follow the patient during the inpatient stay and then in the clinic setting. Abx for now will follow anemia - Patient Problems (1) Septic embolism Current Visit: Yes Status: Acute Subjective Date of service: 12/03/18 Principal diagnosis: septic emboli Interval history: h/o fever Objective - Exam Narrative Exam: Pain - none General appearance - awake Performance status limited self care Eyes - no icterus ENT - no bleeding LNs cervical not palpable Neck - no LN Respiratory Normal Breath sounds - CTA anteriorly CVS S1 S2 + Extremities no calf tenderness General GI Soft Rectal deferred male - deferred Skin warm Musculoskeletal moving extremitites Neurologically awake - Constitutional Vitals: Last Vital Signs Temp 99.7 F H 12/03/18 05:03 Pulse 99 H 12/03/18 05:03 Resp 17 12/03/18 05:03 BP 127/53 12/03/18 05:03 Pulse Ox 91 12/03/18 05:03 - Labs Lab Results: Laboratory Results - last 24 hr 12/03/18 12/03/18 06:14 06:14 Sodium 132 L Potassium 3.7 Chloride 90.7 L Carbon Dioxide 24 Anion Gap 21 BUN 45 H Creatinine 6.7 H Estimated GFR 10 BUN/Creatinine Ratio 7 Glucose 108 H Calcium 8.7 Phosphorus 5.90 H PTH Intact 153.2 H Medications & Allergies - Medications Allergies/Adverse Reactions: Allergies No Known Allergies Allergy (Verified 08/27/18 16:19) Home Medications: Home Medications Medication Instructions Recorded Confirmed Last Taken Type Acetaminophen [Acetaminophen 650 mg DC Q4H PRN supp.rect 11/26/18 12/02/18 12/01/18 Rx SUPPOS] Docusate Sodium [Colace CAP] 100 mg PO BID capsule 11/26/18 12/02/18 12/01/18 Rx Epoetin Jeramy 10,000 Unit [Procrit] 10,000 unit IV TuThSa vial 11/26/18 12/02/18 12/01/18 Rx Polyethylene Glycol 3350 [Miralax 17 gm PO BID PRN powd.pack 11/26/18 12/02/18 12/01/18 Rx 3350] Sevelamer Carbonate [Renvela] 2,400 mg PO AC tablet 11/26/18 12/02/18 12/01/18 Rx oxyCODONE /ACETAMINOPHEN [Percocet 1 tab PO Q6H PRN tablet 11/26/18 12/02/18 12/01/18 Rx 5/325 mg] Active Medications: Generic Name Dose Route Start Last Admin Trade Name Freq PRN Reason Stop Dose Admin Acetaminophen 650 mg 12/01/18 11:36 12/02/18 15:32 Tylenol PO 650 mg Q6H PRN Administration Non Cardiac Pain or Temp>100.5 Bisacodyl 10 mg 12/01/18 11:36 12/01/18 21:53 Dulcolax DC 10 mg QDAY PRN Administration Constipation Epoetin Jeramy 10,000 unit 12/03/18 12:00 Procrit IV TUTHSA ISABELLA Cefazolin Sodium 1 gm in 50 mls @ 100 mls/hr 12/02/18 18:00 12/02/18 18:16 Ancef/Ns 1 Gm/50 Ml IV 12/27/18 18:29 100 mls/hr QPM ISABELLA Administration Protocol Sodium Chloride 100 mls @ 999 mls/hr 12/02/18 09:33 Nacl 0.9% IV SISSY PRN Hypotension Ondansetron HCl 4 mg 12/01/18 11:36 Zofran Odt PO Q8H PRN Nausea And Vomiting Oxycodone/Acetaminophen 1 tab 12/01/18 11:37 12/02/18 23:20 Percocet 5/325 PO 1 tab Q6H PRN Administration Pain, Moderate (4-6) Polyethylene Glycol 17 gm 12/02/18 08:00 12/02/18 09:21 Miralax 3350 PO 17 gm QDAY ISABELLA Administration Sevelamer Carbonate 2,400 mg 12/01/18 18:30 12/02/18 18:17 Renvela PO 2,400 mg AC ISABELLA Administration Sodium Chloride 10 ml 12/01/18 11:37 Sodium Chloride Flush Syringe 10 Ml IV PRN PRN LINE FLUSH
[2018-12-03] MEDS: RENVELA PO SCH ×3 (07:54→16:50)
[2018-12-03] MEDS: MIRALAX 3350 PO SCH (07:54)
--- NOTE | 2018-12-03 11:20 | Progress Note ---
Subjective Date of service: 12/03/18 Principal diagnosis: Debility, weakness, sepsis Interval history: 73-year-old male presented to the ER on November 11 with shortness of breath. He was noted to be febrile. Chest x-ray showed bilateral pneumonia and he was started on cefepime. He was noted to have purulent drainage from his dialysis catheter. It was removed and replaced. He developed altered mental status, MRI was negative. Infectious disease was consulted and started the patient on cefazolin which will be continued until 12/27/2018. His leukocytosis improved however he continued to spike occasional fevers even on antibiotics. Recommendation was made to obtain CT chest abdomen and pelvis which showed septic emboli in the bilateral lungs. SAMARIA was performed looking for cardiac vegetations but none were found. He remains fairly weak and will need continued close monitoring for antibiotic therapy, fevers and leukocytosis, end-stage renal disease and other possible worsening of condition. Patient is participating in therapy and making reasonable progress. Taking rest breaks as needed. -BM. Denies pain, palpitations, dyspnea, cough, N/V, weakness, or joint pain. Still having issues with constipation. Last bowel movement was after having suppository followed by an enema both which produced positive bowel movement. Patient remains distended, is producing flatus, does not have nausea vomiting but appetite is decreased. Discussed with patient this morning that we will try another suppository this afternoon along with additional oral medications. Have ordered and reviewed KUB which shows moderate stool burden. Patient continues to have intermittent fevers. WBCs within normal limits. We'll continue antibiotics and monitor for any further issues. Tolerating dialysis well. Patient discussed during team conference this morning. Making slow progress. Primary issue is strength and endurance. He's having difficulty with transfers and bed mobility however once he is able to get to a standing position is doing fairly well with walking utilizing a rolling walker. We will continue to improve upon his ability to perform transfers and to improve his strength and endurance prior to safe discharge home. All records, vitals, labs and medications were reviewed. No other issues per patient, nursing or therapy. Objective - Exam Narrative Exam: MUSCULOSKELETAL SPECIALTY EXAM CONSTITUTIONAL: Well developed, well nourished, appropriately groomed EENT: EOMI. Hearing intact to soft voice RESPIRATORY: Clear to auscultation bilaterally, no increased work of breathing, on O2 NC 2L CARDIOVASCULAR: Regular Rate/ Rhythm, no swelling, edema or tenderness in BUE or BLE. All ex tremities warm. GI: + bowel sounds, soft, NTTP, distended. INTEGUMENTARY: Normal, no lesion, rash, masses or bruising noted in extremities. MUSCULOSKELETAL: BUE and BLE normal without defect, crepitus, subluxation, effusion, arthritic changes or TTP. BUE 3/5, reduced ROM, with normal tone. BLE 3/5 reduced ROM, with normal tone NEURO: CN 2-12 grossly intact. Sensation intact in all extremities. Coordination slightly impaired in BUE. No tremor noted in 4 extremities. POSTURE and GAIT: Sitting posture impaired. Balance decreased. Gait deferred until seen with therapy. PSYCH: Alert, oriented x3, affect appears normal. Insight appears intact. - Constitutional Vitals: Vital Signs - 12hr 12/02/18 12/03/18 12/03/18 23:45 04:54 05:03 Temperature 37.2 C 37.6 C H Pulse Rate 105 H 99 H Respiratory 16 17 Rate Blood Pressure 124/54 127/53 O2 Sat by Pulse 96 94 91 Oximetry 12/03/18 07:12 Temperature 37.1 C Pulse Rate 96 H Respiratory 18 Rate Blood Pressure 124/54 O2 Sat by Pulse 96 Oximetry - Allied health notes Allied health notes reviewed: nursing, PT, OT FIMS assessment as documented by PT/OT/ST: Social interaction/Memory/Problem solving Social Interaction FIM Score 5. Supervision (Needs supv. <10%. Needs encouragement to participate.) Memory FIM Score 5. Supervision (Needs cueing <10%, stressful/ unfamiliar situations.) Problem Solving FIM Score 5. Supervision (Needs cueing <10% to solve routine problems.) Locomotion- walk/wheelchair Ambulation Distance 6 - Labs CBC & Chem 7: 12/02/18 06:16 12/03/18 06:14 Labs: Laboratory Results - last 72 hr 12/02/18 12/02/18 12/03/18 05:42 06:16 06:14 WBC 10.5 RBC 2.62 L Hgb 7.4 L Hct 22.2 L MCV 85 MCH 28 MCHC 33 RDW 15.9 H Plt Count 240 Sodium 136 L 132 L Potassium 3.9 3.7 Chloride 96.4 L 90.7 L Carbon Dioxide 24 24 Anion Gap 20 21 BUN 28 H 45 H Creatinine 4.5 H 6.7 H Estimated GFR 16 10 BUN/Creatinine Ratio 6 7 Glucose 95 108 H Calcium 8.8 8.7 Phosphorus 5.90 H Total Bilirubin 0.60 AST 31 ALT < 5 L Alkaline Phosphatase 112 Total Protein 8.2 Albumin 1.8 L Albumin/Globulin Ratio 0.3 PTH Intact 12/03/18 06:14 WBC RBC Hgb Hct MCV MCH MCHC RDW Plt Count Sodium Potassium Chloride Carbon Dioxide Anion Gap BUN Creatinine Estimated GFR BUN/Creatinine Ratio Glucose Calcium Phosphorus Total Bilirubin AST ALT Alkaline Phosphatase Total Protein Albumin Albumin/Globulin Ratio PTH Intact 153.2 H - Imaging and cardiology Abdominal x-ray: report reviewed, image reviewed Assessment and Plan PNA and Sepsis (MSSA) with persistent fevers on abx: cont cefazolin until 12/27/18. Monitor for any signs of worsening pneumonia and are leukocytosis. Expect to continue seeing the intermittent fevers and will treat with Tylenol as needed. Patient does have bilateral pulmonary septic emboli. SAMARIA did not show vegetations. ESRD on HD: Continue hemodialysis per nephrology and renally dose medications including antibiotics. Hypertension: Continue medications, adjust as needed for normotension Anemia: Continue to monitor hemoglobin. Continue erythropoietin. Transfuse as needed Thyroid nodule seen on CT: We'll schedule follow-up. Z73.6 ADL dysfunction: OT will work on improving ability to perform ADLs (including assistive devices) to increase independence and decrease caregiver burden and improve functional transfers and mobility training. R26.2 Difficulty walking: PT will work on gait training and proper use of assistive devices and advance as appropriate to use of stairs and outside ambulation on uneven surfaces. R26.81 Unsteadiness on feet: PT will work on improving static and dynamic sitting and standing balance as well as proper use of assistive devices to decrease risk of falls. R26.89 Abnormality of gait: PT will work to improve safety and efficiency of gait through neuromotor training and gait training along with instruction on proper use of assistive devices. M62.81 Muscle weakness: PT & OT will work on strengthening exercises to improve functional strength including mixture of closed and open kinetic chain exercises. R53.81 Debility: PT & OT will work on improving overall functional status to improve participation with ADLs, mobility and social involvement. R53.83 Fatigue: PT & OT will work on improving endurance through aerobic exercises and therapeutic activity while monitoring patients tolerance for activity and vital signs as needed. K59.00 Constipation: Bisacodyl supp today. Dulcolax PO and miralax. DVT ppx: SCDs, Will start heparin once Hgb has improved Pain: Continue physical modalities in therapy and pain medications as needed to achieve functional pain control. Sleep: Monitor and address as needed. Bowel: Monitor and address as needed. Appetite: Monitor and address as needed. Discharge planning: Pending therapy progress and care plan meeting. Will continue discussion with therapy team, SW, patient and family. Restrictions/ Precautions: Falls WB status: FWB Functional Hx: ADLs: Independent Cognition: Independent Mobility: No AD Barriers to Discharge: Decreased mobility and ability to perform self care, balance deficits, weakness Estimated Length of Stay: 1418 days Discharge Destination: Home with family
[2018-12-03] MEDS: PERCOCET 5/325 PO PRN ×2 (11:33→20:31)
--- NOTE | 2018-12-03 12:46 | XRay Report ---
ABDOMEN 1 VIEW(S) INDICATION / CLINICAL INFORMATION: Constipation, abd pain. COMPARISON: None available. FINDINGS: TUBES / LINES: None. BOWEL GAS PATTERN: There is moderate stool throughout the proximal colon. No evidence for dilated bow el or pathologic calcifications. FREE AIR / EXTRALUMINAL GAS: None seen. ADDITIONAL FINDINGS: No significant additional findings. IMPRESSION: Mild fecal retention in the proximal colon. Signer Name: Hemanth Matute Jr, MD Signed: 12/03/2018 12:42 PM Workstation Name: [id number]
--- NOTE | 2018-12-03 13:13 | Progress Note ---
Assessment and Plan - Patient Problems (1) End stage renal disease Current Visit: No Status: Acute Plan to address problem: cont maintenance HD on TTS schedule (2) Sepsis Current Visit: No Status: Acute Qualifiers: Sepsis type: methicillin susceptible Staphylococcus aureus Plan to address problem: h/o MSSA bactermia in the setting of infected RIJ Permcath, s/p removal with repeat cultures x 2 sets negative, s/p new permcath placement. Cont ABXs as per ID recommendations. CT chest/abdomen indicating evidence of septic emboli. TTE/SAMARIA were unremarkable for vegetations (3) Pneumonia Current Visit: No Status: Acute Qualifiers: Pneumonia type: due to unspecified organism Laterality: unspecified laterality Lung location: unspecified part of lung Qualified Code(s): J18.9 - Pneumonia, unspecified organism Plan to address problem: Improved at this time. Cont ABXs as per ID recommendations (4) Hypertensive chronic kidney disease with stage 5 chronic kidney disease or end stage renal disease Current Visit: No Status: Chronic Plan to address problem: monitor BP on current BP regimen (5) Secondary hyperparathyroidism (of renal origin) Current Visit: No Status: Acute Plan to address problem: PO4 remains above target, cont renal diet and home phos binder regimen with renvela Subjective Date of service: 12/03/18 Principal diagnosis: Debility, weakness, sepsis Interval history: Pt awake alert, denies fever, chills, n/v/d Objective - Vital Signs Vital signs: Vital Signs - 12hr 12/03/18 12/03/18 12/03/18 04:54 05:03 07:12 Temperature 99.7 F H 98.8 F Pulse Rate 99 H 96 H Respiratory 17 18 Rate Blood Pressure 127/53 124/54 O2 Sat by Pulse 94 91 96 Oximetry 12/03/18 11:26 Temperature 98.1 F Pulse Rate 95 H Respiratory 18 Rate Blood Pressure 130/56 O2 Sat by Pulse 96 Oximetry - General Appearance General appearance: well-developed, well-nourished, appears stated age EENT: ATNC, PERRL, mucous membranes moist Neck: no JVD Respiratory: Present: Clear to Ascultation Cardiology: regular, S1S2 Gastrointestinal: normoactive bowel sounds Integumentary: no rash, other (no edema ) Neurologic: no focal deficit, alert and oriented x3, strength 5/5, CN 3-12 intact Psychiatric: mood/affect appropriate, cooperative - Lab 12/02/18 06:16 12/03/18 06:14 Most recent lab results Calcium 8.7 mg/dL (8.4-10.2) 12/03/18 06:14 Phosphorus 5.90 mg/dL (2.5-4.5) H 12/03/18 06:14 Medications & Allergies - Medications Allergies/Adverse Reactions: Allergies No Known Allergies Allergy (Verified 08/27/18 16:19) Home Medications: Home Medications Medication Instructions Recorded Confirmed Last Taken Type Acetaminophen [Acetaminophen 650 mg MD Q4H PRN supp.rect 11/26/18 12/02/18 12/01/18 Rx SUPPOS] Docusate Sodium [Colace CAP] 100 mg PO BID capsule 11/26/18 12/02/18 12/01/18 Rx Epoetin Jeramy 10,000 Unit [Procrit] 10,000 unit IV TuThSa vial 11/26/18 12/02/18 12/01/18 Rx Polyethylene Glycol 3350 [Miralax 17 gm PO BID PRN powd.pack 11/26/18 12/02/18 12/01/18 Rx 3350] Sevelamer Carbonate [Renvela] 2,400 mg PO AC tablet 11/26/18 12/02/18 12/01/18 Rx oxyCODONE /ACETAMINOPHEN [Percocet 1 tab PO Q6H PRN tablet 11/26/18 12/02/18 12/01/18 Rx 5/325 mg] Active Medications: Generic Name Dose Route Start Last Admin Trade Name Kurtq PRN Reason Stop Dose Admin Acetaminophen 650 mg 12/01/18 11:36 12/02/18 15:32 Tylenol PO 650 mg Q6H PRN Administration Non Cardiac Pain or Temp>100.5 Bisacodyl 10 mg 12/01/18 11:36 12/01/18 21:53 Dulcolax MD 10 mg QDAY PRN Administration Constipation Epoetin Jeramy 10,000 unit 12/03/18 12:00 Procrit IV TUTHSA ISABELLA Cefazolin Sodium 1 gm in 50 mls @ 100 mls/hr 12/02/18 18:00 12/02/18 18:16 Ancef/Ns 1 Gm/50 Ml IV 12/27/18 18:29 100 mls/hr QPM ISABELLA Administration Protocol Sodium Chloride 100 mls @ 999 mls/hr 12/02/18 09:33 Nacl 0.9% IV SISSY PRN Hypotension Ondansetron HCl 4 mg 12/01/18 11:36 Zofran Odt PO Q8H PRN Nausea And Vomiting Oxycodone/Acetaminophen 1 tab 12/01/18 11:37 12/03/18 11:33 Percocet 5/325 PO 1 tab Q6H PRN Administration Pain, Moderate (4-6) Polyethylene Glycol 17 gm 12/02/18 08:00 12/03/18 07:54 Miralax 3350 PO 17 gm QDAY ISABELLA Administration Sevelamer Carbonate 2,400 mg 12/01/18 18:30 12/03/18 11:35 Renvela PO 2,400 mg AC ISABELLA Administration Sodium Chloride 10 ml 12/01/18 11:37 Sodium Chloride Flush Syringe 10 Ml IV PRN PRN LINE FLUSH
[2018-12-03] MEDS ORDERED: NACL 0.9 (PRIMING MACHINE ONLY DIALYSIS) MC ONE (17:20)
[2018-12-03] MEDS: PROCRIT IV SCH (17:28)
[2018-12-03] MEDS: DULCOLAX PO SCH (18:19)
[2018-12-03] MEDS: ANCEF/NS 1 GM/50 ML 1 GM/50 ML BAG IV SCH (18:20)
--- NOTE | 2018-12-03 19:54 | Consultation ---
REFERRED BY: Dr. Wang. REASON FOR CONSULTATION: Emboli, sepsis versus other cause. HISTORY OF PRESENT ILLNESS: I saw the patient, a 73-year-old male in the medical floor. The patient was admitted on 11/11/2018 with shortness of breath and fever, was found to have pneumonia. He was treated with antibiotics. The patient is on dialysis and there was discharge from the dialysis catheter, it was removed and replaced. The patient had leukocytosis. CT chest, abdomen and pelvis was done. This showed septic emboli in both lungs. SAMARIA was done for cardiac vegetation but not found. The patient has been transferred to rehabilitation setting for management of antibiotic therapy, ESRD and emboli. Heparin was evaluated. At this time, no headache, no visual disturbances. No ear discharge. History of shortness of breath present. History of abdominal pain, no vomiting, no diarrhea. PAST MEDICAL HISTORY: Includes coronary artery disease; ESRD, on dialysis; hypertension, hyperparathyroidism, arthritis. PAST SURGICAL HISTORY: Permacath placement. SOCIAL HISTORY: No history of tobacco or alcohol usage. FAMILY HISTORY: Diabetes, hypertension. ALLERGIES: None. PHYSICAL EXAMINATION: VITAL SIGNS: Temperature 97.9, pulse 92, respirations 17 and BP 133/72. HEENT: Pallor present, no icterus. NECK: No neck lymph nodes. HEART: S1, S2. LUNGS: Dialysis catheter is present. ABDOMEN: Soft. EXTREMITIES: No calf tenderness. LABORATORY DATA: Shows hemoglobin in 05/2018 was 5.5 and then in November 11 it was 10.4. It had gone down to 6.2 and then again improved. MCV is normal at 85. White cell 10.5, hemoglobin 7.4, MCV 85, platelet 240. Lowest hemoglobin was in 2018, early part. During this admission, hemoglobin was 10 and then it had gone down to 6 and then again come up to 7.4, MCV is normal. Platelet is normal. Predominant neutrophil. Potassium 3.9, creatinine 4.5, calcium 8.8, bilirubin 0.6. RADIOLOGY: On 11/26/2018, a CT chest, abdomen and pelvis was done, which has been reported as incidental thyroid nodule. Liver shows multiple cysts. CT chest shows multiple nodular infiltrate. Minute cavitation of significant concern for septic emboli. Typical infection is less favored. ALLERGIES: None. MEDICATIONS: Includes cefazolin, Procrit. ASSESSMENT: 1. Based on CT finding, it is septic emboli and not a thrombotic event. Anticoagulation is less likely to be helpful. 2. Anemia of chronic kidney disease, may have a role. This also can be multifactorial. We will investigate. 3. History of leukocytosis. 4. History of ____. 5. End-stage renal disease, on dialysis. 6. History of fever. 7. Fever issues. 8. Therapy planned. 9. History of hypertension. 10. Permacath for dialysis issues. I will follow the patient during the inpatient stay and then in the clinic setting. JOB# [id number] ZANE/NTS
[2018-12-03] MEDS: ZOFRAN ODT PO PRN (20:30)
--- NOTE | 2018-12-04 07:44 | Hem/Onc Progress Note ---
Assessment and Plan 1. Based on CT finding, it is septic emboli and not a thrombotic event. Anticoagulation is less likely to be helpful. 2. Anemia of chronic kidney disease, may have a role. This also can be multifactorial. We will follow 3. History of leukocytosis. 4. History of high PTH. 5. End-stage renal disease, on dialysis. 6. History of fever. 7. Fever issues. 8. Antibiotic and physical Therapy. 9. History of hypertension. 10. Pt has Permacath for dialysis issues. I will follow the patient during the inpatient stay and then in the clinic setting. Abx for now will follow anemia - b12 - folate - iron ferritin WNL - Patient Problems (1) Septic embolism Current Visit: Yes Status: Acute Subjective Date of service: 12/04/18 Principal diagnosis: septic emboli Interval history: fever Objective - Exam Narrative Exam: Pain - none General appearance - awake Performance status limited self care Eyes - no icterus ENT - no bleeding LNs cervical not palpable Neck - no LN Respiratory Normal Breath sounds - CTA anteriorly CVS S1 S2 + Extremities no calf tenderness General GI Soft Rectal deferred male - deferred Skin warm Musculoskeletal moving extremitites Neurologically awake - Constitutional Vitals: Last Vital Signs Temp 98.7 F 12/04/18 05:54 Pulse 106 H 12/04/18 05:54 Resp 16 12/04/18 05:54 BP 130/85 12/04/18 05:54 Pulse Ox 99 12/04/18 05:54 Medications & Allergies - Medications Allergies/Adverse Reactions: Allergies No Known Allergies Allergy (Verified 08/27/18 16:19) Home Medications: Home Medications Medication Instructions Recorded Confirmed Last Taken Type Acetaminophen [Acetaminophen 650 mg [place] Q4H PRN supp.rect 11/26/18 12/02/18 12/01/18 Rx SUPPOS] Docusate Sodium [Colace CAP] 100 mg PO BID capsule 11/26/18 12/02/18 12/01/18 Rx Epoetin Jeramy 10,000 Unit [Procrit] 10,000 unit IV TuThSa vial 11/26/18 12/02/18 12/01/18 Rx Polyethylene Glycol 3350 [Miralax 17 gm PO BID PRN powd.pack 11/26/18 12/02/18 12/01/18 Rx 3350] Sevelamer Carbonate [Renvela] 2,400 mg PO AC tablet 11/26/18 12/02/18 12/01/18 Rx oxyCODONE /ACETAMINOPHEN [Percocet 1 tab PO Q6H PRN tablet 11/26/18 12/02/18 12/01/18 Rx 5/325 mg] Active Medications: Generic Name Dose Route Start Last Admin Trade Name Freq PRN Reason Stop Dose Admin Acetaminophen 650 mg 12/01/18 11:36 12/02/18 15:32 Tylenol PO 650 mg Q6H PRN Administration Non Cardiac Pain or Temp>100.5 Bisacodyl 10 mg 12/01/18 11:36 12/01/18 21:53 Dulcolax [place] 10 mg QDAY PRN Administration Constipation Bisacodyl 10 mg 12/03/18 16:00 12/03/18 18:19 Dulcolax PO 12/09/18 08:01 Not Given QDAY ISABELLA Epoetin Jeramy 10,000 unit 12/03/18 12:00 12/03/18 17:28 Procrit IV 10,000 unit TUTHSA ISABLELA Administration Cefazolin Sodium 1 gm in 50 mls @ 100 mls/hr 12/02/18 18:00 12/03/18 20:59 Ancef/Ns 1 Gm/50 Ml IV 12/27/18 18:29 Infused QPM ISABELLA Infusion Protocol Sodium Chloride 100 mls @ 999 mls/hr 12/02/18 09:33 Nacl 0.9% IV SISSY PRN Hypotension Ondansetron HCl 4 mg 12/01/18 11:36 12/03/18 20:30 Zofran Odt PO 4 mg Q8H PRN Administration Nausea And Vomiting Oxycodone/Acetaminophen 1 tab 12/01/18 11:37 12/03/18 20:31 Percocet 5/325 PO 1 tab Q6H PRN Administration Pain, Moderate (4-6) Polyethylene Glycol 17 gm 12/02/18 08:00 12/03/18 07:54 Miralax 3350 PO 17 gm QDAY ISABELLA Administration Sevelamer Carbonate 2,400 mg 12/01/18 18:30 12/03/18 16:50 Renvela PO Not Given AC ISABELLA Sodium Chloride 10 ml 12/01/18 11:37 Sodium Chloride Flush Syringe 10 Ml IV PRN PRN LINE FLUSH
[2018-12-04] MEDS: RENVELA PO SCH ×3 (07:58→16:47)
[2018-12-04] MEDS: MIRALAX 3350 PO SCH (07:59)
[2018-12-04] MEDS: DULCOLAX PO SCH (07:59)
[2018-12-04] MEDS: PERCOCET 5/325 PO PRN ×2 (08:02→16:56)
--- NOTE | 2018-12-04 11:04 | Progress Note ---
Subjective Date of service: 12/04/18 Principal diagnosis: septic emboli Interval history: 73-year-old male presented to the ER on November 11 with shortness of breath. He was noted to be febrile. Chest x-ray showed bilateral pneumonia and he was started on cefepime. He was noted to have purulent drainage from his dialysis catheter. It was removed and replaced. He developed altered mental status, MRI was negative. Infectious disease was consulted and started the patient on cefazolin which will be continued until 12/27/2018. His leukocytosis improved however he continued to spike occasional fevers even on antibiotics. Recommendation was made to obtain CT chest abdomen and pelvis which showed septic emboli in the bilateral lungs. SAMARIA was performed looking for cardiac vegetations but none were found. He remains fairly weak and will need continued close monitoring for antibiotic therapy, fevers and leukocytosis, end-stage renal disease and other possible worsening of condition. Patient is participating in therapy and making reasonable progress. Taking rest breaks as needed. Stopped by therapy in the hallway with the patient and was informed of elevated heart rate. Palpatory heart rate was in the 70s however the pulse ox was reading higher. Auscultation revealed irregular heart rate and rhythm. Ordered an EKG which does show atrial fibrillation. Patient denies chest pain, radiating pain into the jaw or arm, nausea or vomiting. We'll contact internal medicine and cardiology for further assistance in working up the new onset of atrial fibrillation and management thereof. -BM even with suppository last night. Denies pain, palpitations, chest pain, dyspnea, cough, N/V, weakness, or joint pain. Still having issues with constipation. Patient remains distended, is producing flatus, does not have nausea vomiting but appetite is decreased. Patient continues to have intermittent fevers. WBCs within normal limits. We'll continue antibiotics and monitor for any further issues. Tolerating dialysis well. I was notified that the patient had a fall last night after dialysis. Patient was attempting to get out of bed to his wheelchair in order to eat and did not call nursing. No injuries noted at that time and no injuries noted this morning on exam either. All records, vitals, labs and medications were reviewed. No other issues per patient, nursing or therapy. Objective - Exam Narrative Exam: MUSCULOSKELETAL SPECIALTY EXAM CONSTITUTIONAL: Well developed, well nourished, appropriately groomed EENT: EOMI. Hearing intact to soft voice RESPIRATORY: Clear to auscultation bilaterally, no increased work of breathing, on O2 NC 2L CARDIOVASCULAR: Irregular rate, irregular rhythm, no swelling, edema or tenderness in BUE or BLE. All extremities warm. GI: + bowel sounds, soft, NTTP, distended. INTEGUMENTARY: Normal, no lesion, rash, masses or bruising noted in extremities. MUSCULOSKELETAL: BUE and BLE normal without defect, crepitus, subluxation, effusion, arthritic changes or TTP. BUE 3/5, reduced ROM, with normal tone. BLE 3/5 reduced ROM, with normal tone. No tenderness palpation around the back or legs, no injuries noted from fall last night. NEURO: CN 2-12 grossly intact. Sensation intact in all extremities. Coordination slightly impaired in BUE. No tremor noted in 4 extremities. POSTURE and GAIT: Sitting posture impaired. Balance decreased. Gait deferred until seen with therapy. PSYCH: Alert, oriented x3, affect appears normal. Insight appears intact. - Constitutional Vitals: Vital Signs - 12hr 12/04/18 12/04/18 12/04/18 00:15 04:59 05:54 Temperature 37.2 C 37.1 C 37.1 C Pulse Rate 120 H 106 H Respiratory 17 16 16 Rate Blood Pressure 112/45 154/58 Blood Pressure 130/85 [Left] O2 Sat by Pulse 97 99 Oximetry 12/04/18 12/04/18 07:44 08:00 Temperature 37.4 C Pulse Rate 127 H Respiratory 22 Rate Blood Pressure 139/83 Blood Pressure [Left] O2 Sat by Pulse 96 98 Oximetry - Allied health notes Allied health notes reviewed: nursing, PT, OT FIMS assessment as documented by PT/OT/ST: Social interaction/Memory/Problem solving Social Interaction FIM Score 5. Supervision (Needs supv. <10%. Needs encouragement to participate.) Memory FIM Score 4. Minimal Assistance (Recognizes and remembers 75-90%.) Problem Solving FIM Score 5. Supervision (Needs cueing <10% to solve routine problems.) Transfers Mode of Locomotion: Wheelchair Bed/Chair/Wheelchair Transfers 2. Maximal Assistance (Patient = 25% or more) FIM Score Locomotion- walk/wheelchair Ambulation Distance 6 - Labs CBC & Chem 7: 12/02/18 06:16 12/03/18 06:14 Labs: Laboratory Results - last 72 hr 12/02/18 12/02/18 12/03/18 05:42 06:16 06:14 WBC 10.5 RBC 2.62 L Hgb 7.4 L Hct 22.2 L MCV 85 MCH 28 MCHC 33 RDW 15.9 H Plt Count 240 Sodium 136 L 132 L Potassium 3.9 3.7 Chloride 96.4 L 90.7 L Carbon Dioxide 24 24 Anion Gap 20 21 BUN 28 H 45 H Creatinine 4.5 H 6.7 H Estimated GFR 16 10 BUN/Creatinine Ratio 6 7 Glucose 95 108 H Calcium 8.8 8.7 Phosphorus 5.90 H Total Bilirubin 0.60 AST 31 ALT < 5 L Alkaline Phosphatase 112 Total Protein 8.2 Albumin 1.8 L Albumin/Globulin Ratio 0.3 PTH Intact 12/03/18 06:14 WBC RBC Hgb Hct MCV MCH MCHC RDW Plt Count Sodium Potassium Chloride Carbon Dioxide Anion Gap BUN Creatinine Estimated GFR BUN/Creatinine Ratio Glucose Calcium Phosphorus Total Bilirubin AST ALT Alkaline Phosphatase Total Protein Albumin Albumin/Globulin Ratio PTH Intact 153.2 H Assessment and Plan New onset atrial fibrillation: EKG obtain which confirms. Reviewed previous rhythm strips and EKGs while patient was on the acute care side of the hospital. One rhythm strip from acute stay showed an incident of atrial fibrillation. We will consult internal medicine and cardiology for further management PNA and Sepsis (MSSA) with persistent fevers on abx: cont cefazolin until 12/27/18. Monitor for any signs of worsening pneumonia and are leukocytosis. Expect to continue seeing the intermittent fevers and will treat with Tylenol as needed. Patient does have bilateral pulmonary septic emboli. SAMARIA did not show vegetations. ESRD on HD: Continue hemodialysis per nephrology and renally dose medications including antibiotics. Hypertension: Continue medications, adjust as needed for normotension Anemia: Continue to monitor hemoglobin. Continue erythropoietin. Transfuse as needed Thyroid nodule seen on CT: We'll schedule follow-up. Z73.6 ADL dysfunction: OT will work on improving ability to perform ADLs (including assistive devices) to increase independence and decrease caregiver burden and improve functional transfers and mobility training. R26.2 Difficulty walking: PT will work on gait training and proper use of assistive devices and advance as appropriate to use of stairs and outside ambulation on uneven surfaces. R26.81 Unsteadiness on feet: PT will work on improving static and dynamic sitting and standing balance as well as proper use of assistive devices to decrease risk of falls. R26.89 Abnormality of gait: PT will work to improve safety and efficiency of gait through neuromotor training and gait training along with instruction on proper use of assistive devices. M62.81 Muscle weakness: PT & OT will work on strengthening exercises to improve functional strength including mixture of closed and open kinetic chain exercises. R53.81 Debility: PT & OT will work on improving overall functional status to improve participation with ADLs, mobility and social involvement. R53.83 Fatigue: PT & OT will work on improving endurance through aerobic exercis es and therapeutic activity while monitoring patients tolerance for activity and vital signs as needed. K59.00 Constipation: Bisacodyl supp today. Dulcolax PO and miralax. DVT ppx: SCDs, Will start heparin once Hgb has improved Pain: Continue physical modalities in therapy and pain medications as needed to achieve functional pain control. Sleep: Monitor and address as needed. Bowel: Monitor and address as needed. Appetite: Monitor and address as needed. Discharge planning: Pending therapy progress and care plan meeting. Will continue discussion with therapy team, SW, patient and family. Restrictions/ Precautions: Falls WB status: FWB Functional Hx: ADLs: Independent Cognition: Independent Mobility: No AD Barriers to Discharge: Decreased mobility and ability to perform self care, balance deficits, weakness Estimated Length of Stay: 1418 days Discharge Destination: Home with family
--- NOTE | 2018-12-04 12:30 | Consultation ---
History of Present Illness Consult date: 12/04/18 Requesting physician: ALEE NELSON III Consult reason: atrial fibrillation History of present illness: The pt is a 73-year-old male with a past medical history of HTN, ESRD on HD. He presented to the ER on November 11 with shortness of breath. He was noted to be febrile. Chest x-ray showed bilateral pneumonia and he was started on cefepime. He was noted to have purulent drainage from his dialysis catheter. He was found to have MSSA bacteremia believed to be secondary to dialysis catheter infection. Dialysis catheter was removed and replaced. He developed altered mental status, MRI was negative. Infectious disease was consulted and started the patient on cefazolin which will be continued until 12/27/2018. His leukocytosis improved however he continued to spike occasional fevers even on antibiotics. Recommendation was made to obtain CT chest abdomen and pelvis which showed septic emboli in the bilateral lungs. SAMARIA was performed looking for cardiac vegetations but none were found. He was discharged from [facility] to acute rehabilitation on 12/01/2018. Cardiology has been consulted for atrial fibrillation. Pt is noted to be in atrial fibrillation on examination. He is not currently on remote telemetry. Pt has no current complaints. Pt denies any prior cardiac issues. TTE done 11/15/2018 showed EF 45-50%, RV mildly dilated, catheter in RA, trace MR, mild TR, trivial pericardial effusion - pt was noted to be in atrial fibrillation at the time of this echo, cardiology was not consulted. Past History Past Medical History: ESRD, hypertension, other (hyperparathyroidism, osteoarthritis) Past Surgical History: Other (permcath placement ) Social history: full code. denies: smoking, alcohol abuse, prescription drug abuse, IV drug use Family history: diabetes, hypertension Medications and Allergies Allergies Allergy/AdvReac Type Severity Reaction Status Date / Time No Known Allergies Allergy Verified 08/27/18 16:19 Home Medications Medication Instructions Recorded Confirmed Last Taken Type Acetaminophen [Acetaminophen 650 mg OK Q4H PRN supp.rect 11/26/18 12/02/18 12/01/18 Rx SUPPOS] Docusate Sodium [Colace CAP] 100 mg PO BID capsule 11/26/18 12/02/18 12/01/18 Rx Epoetin Jeramy 10,000 Unit [Procrit] 10,000 unit IV TuThSa vial 11/26/18 12/02/1812/01/19 Rx Polyethylene Glycol 3350 [Miralax 17 gm PO BID PRN powd.pack 11/26/18 12/02/18 12/01/18 Rx 3350] Sevelamer Carbonate [Renvela] 2,400 mg PO AC tablet 11/26/18 12/02/18 12/01/18 Rx oxyCODONE /ACETAMINOPHEN [Percocet 1 tab PO Q6H PRN tablet 11/26/18 12/02/18 12/01/18 Rx 5/325 mg] Active Meds: Active Medications Acetaminophen (Tylenol) 650 mg PO Q6H PRN PRN Reason: Non Cardiac Pain or Temp>100.5 Last Admin: 12/02/18 15:32 Dose: 650 mg Documented by: Bisacodyl (Dulcolax) 10 mg OK QDAY PRN PRN Reason: Constipation Last Admin: 12/01/18 21:53 Dose: 10 mg Documented by: Bisacodyl (Dulcolax) 10 mg PO QDAY [facility] Stop: 12/09/18 08:01 Last Admin: 12/04/18 07:59 Dose: 10 mg Documented by: Epoetin Jeramy (Procrit) 10,000 unit IV [facility] Last Admin: 12/03/18 17:28 Dose: 10,000 unit Documented by: Cefazolin Sodium (Ancef/Ns 1 Gm/50 Ml) 1 gm in 50 mls @ 100 mls/hr IV QPM [facility]; Protocol Stop: 12/27/18 18:29 Last Infusion: 12/03/18 20:59 Dose: Infused Documented by: Sodium Chloride (Nacl 0.9%) 100 mls @ 999 mls/hr IV SISSY PRN PRN Reason: Hypotension Ondansetron HCl (Zofran Odt) 4 mg PO Q8H PRN PRN Reason: Nausea And Vomiting Last Admin: 12/03/18 20:30 Dose: 4 mg Documented by: Oxycodone/Acetaminophen (Percocet 5/325) 1 tab PO Q6H PRN PRN Reason: Pain, Moderate (4-6) Last Admin: 12/04/18 08:02 Dose: 1 tab Documented by: Polyethylene Glycol (Miralax 3350) 17 gm PO QDAY [facility] Last Admin: 12/04/18 07:59 Dose: 17 gm Documented by: Sevelamer Carbonate (Renvela) 2,400 mg PO AC ISABELLA Last Admin: 12/04/18 11:41 Dose: 2,400 mg Documented by: Sodium Chloride (Sodium Chloride Flush Syringe 10 Ml) 10 ml IV PRN PRN PRN Reason: LINE FLUSH Review of Systems All systems: negative (no current complaints) Physical Examination Vital Signs Temp Pulse Resp BP 98.3 F 109 H 96 H 140/62 12/01/18 17:00 12/01/18 17:00 12/01/18 17:00 12/01/18 17:00 General appearance: no acute distress HEENT: Positive: PERRL, Normocephaly, Mucus Membranes Moist Neck: Positive: neck supple, trachea midline Cardiac: Positive: irregularly irregular, S1/S2, Tachycardia Lungs: Positive: Decreased Breath Sounds Neuro: Positive: Grossly Intact Abdomen: Negative: Tender Skin: Negative: Rash Musculoskeletal: No Pain Extremities: Absent: edema Results 12/02/18 06:16 12/03/18 06:14 - Imaging and Cardiology Echo: report reviewed (TTE done 11/15/2018 showed EF 45-50%, RV mildly dilated, catheter in RA, trace MR, mild TR, trivial pericardial effusion - pt was noted to be in atrial fibrillation at the time of this echo, cardiology was not consulted.) EKG: report reviewed, image reviewed EKG interpretations - Telemetry EKG Rhythm: Atrial Fibrillation - EKG Supraventricular dysrhythmia: atrial fibrillation Assessment and Plan Atrial fibrillation with RVR Unclear nature and duration. ECG done 11/11/2018 showed sinus rhythm. Atrial fibrillation was noted during TTE done 11/15/2018, cardiology was not consulted. ECG today shows AFib with RVR HR 115. TTE done 11/15/2018 showed EF 45-50%, RV mildly dilated, catheter in RA, trace MR, mild TR, trivial pericardial effusion. Initiate remote telemetry. Optimize HR - initiate lopressor and titrate as tolerated. Obtain thyroid profile. Pt would benefit from systemic AC in regards to atrial fibrillation. However, he is noted to be anemic and has h/o thrombocytopenia. Recommend initiation of systemic AC if no contraindications and if okay per hematology. Coumadin or NOAC could be considered. Sepsis / MSSA bacteremia secondary to vascular catheter infection / pneumonia / septic emboli / persistent fevers Repeat blood cultures from 11/15/2018 negative. S/p HD catheter exchange. TTE unremarkable for any vegetations. Patient still with significant intermittent fever ID recommend to continue total 6 weeks of post HD Cefazolin upon discharge at the dialysis center ending 12/27/2018. Hematology following. Anemia / h/o thrombocytopenia S/p PRBC tx. Receiving erythropoietin. Hematology following. Plt count currently WNL. ESRD on HD Nephrology following. HTN Optimize BPs - initiate lopressor and titrate as necessary. Hyperparathyroidism Per primary. Will obtain TSH and T4. The patient has been seen in conjunction with Dr. Hutchison who agrees with the assessment and plan of care.
[2018-12-04] MEDS: LOPRESSOR PO SCH ×2 (13:18→22:36)
[2018-12-04] MEDS: TYLENOL PO PRN (13:21)
[2018-12-04 13:39] LABS: Calcium 8.7 mg/dL (8.4-10.2)
[2018-12-04 14:36] LABS: Hematocrit 23.5 % (35.5-45.6); Hemoglobin 7.7 gm/dl (11.8-15.2); Mean Corpuscular HGB Conc 33 % (32-34); Mean Corpuscular Volume 85 fl (84-94); Platelet Count 308 K/mm3 (140-440); Red Blood Count 2.78 M/mm3 (3.65-5.03); Red Cell Distribution Width 16.2 % (13.2-15.2)
--- NOTE | 2018-12-04 15:45 | Progress Note ---
Assessment and Plan - Patient Problems (1) End stage renal disease Current Visit: No Status: Acute Plan to address problem: cont maintenance HD on TTS schedule (2) Sepsis Current Visit: No Status: Acute Qualifiers: Sepsis type: methicillin susceptible Staphylococcus aureus Plan to address problem: h/o MSSA bactermia in the setting of infected RIJ Permcath, s/p removal with repeat cultures x 2 sets negative, s/p new permcath placement. Cont ABXs as per ID recommendations. CT chest/abdomen indicating evidence of septic emboli. TTE/SAMARIA were unremarkable for vegetations (3) Pneumonia Current Visit: No Status: Acute Qualifiers: Pneumonia type: due to unspecified organism Laterality: unspecified laterality Lung location: unspecified part of lung Qualified Code(s): J18.9 - Pneumonia, unspecified organism Plan to address problem: Improved at this time. Cont ABXs as per ID recommendations (4) Hypertensive chronic kidney disease with stage 5 chronic kidney disease or end stage renal disease Current Visit: No Status: Chronic Plan to address problem: monitor BP on current BP regimen (5) Secondary hyperparathyroidism (of renal origin) Current Visit: No Status: Acute Plan to address problem: PO4 remains above target, cont renal diet and home phos binder regimen with renvela Subjective Date of service: 12/04/18 Principal diagnosis: septic emboli Interval history: Pt awake alert, denies fever, chills, n/v/d Objective - Vital Signs Vital signs: Vital Signs - 12hr 12/04/18 12/04/18 12/04/18 04:59 05:54 07:44 Temperature 98.7 F 98.7 F Pulse Rate 106 H Respiratory 16 16 Rate Blood Pressure 154/58 Blood Pressure 130/85 [Left] O2 Sat by Pulse 99 96 Oximetry 12/04/18 12/04/18 12/04/18 08:00 12:11 13:18 Temperature 99.3 F 98.1 F Pulse Rate 127 H 103 H 79 Respiratory 22 20 Rate Blood Pressure 139/83 154/71 120/45 Blood Pressure [Left] O2 Sat by Pulse 98 100 Oximetry - General Appearance General appearance: well-developed, well-nourished, appears stated age EENT: ATNC, PERRL, mucous membranes moist Neck: no JVD Respiratory: Present: Clear to Ascultation Cardiology: regular, S1S2 Gastrointestinal: normoactive bowel sounds Integumentary: no rash, other Neurologic: no focal deficit, alert and oriented x3, strength 5/5, CN 3-12 intact Psychiatric: mood/affect appropriate, cooperative - Lab 12/04/18 14:12 12/04/18 12:57 Most recent lab results Calcium 8.7 mg/dL (8.4-10.2) 12/04/18 12:57 Phosphorus 5.90 mg/dL (2.5-4.5) H 12/03/18 06:14 Medications & Allergies - Medications Allergies/Adverse Reactions: Allergies No Known Allergies Allergy (Verified 08/27/18 16:19) Home Medications: Home Medications Medication Instructions Recorded Confirmed Last Taken Type Acetaminophen [Acetaminophen 650 mg ND Q4H PRN supp.rect 11/26/18 12/02/18 12/01/18 Rx SUPPOS] Docusate Sodium [Colace CAP] 100 mg PO BID capsule 11/26/18 12/02/18 12/01/18 Rx Epoetin Jeramy 10,000 Unit [Procrit] 10,000 unit IV TuThSa vial 11/26/18 12/02/18 12/01/18 Rx Polyethylene Glycol 3350 [Miralax 17 gm PO BID PRN powd.pack 11/26/18 12/02/18 12/01/18 Rx 3350] Sevelamer Carbonate [Renvela] 2,400 mg PO AC tablet 11/26/18 12/02/18 12/01/18 Rx oxyCODONE /ACETAMINOPHEN [Percocet 1 tab PO Q6H PRN tablet 11/26/18 12/02/18 12/01/18 Rx 5/325 mg] Active Medications: Generic Name Dose Route Start Last Admin Trade Name Freq PRN Reason Stop Dose Admin Acetaminophen 650 mg 12/01/18 11:36 12/04/18 13:21 Tylenol PO 650 mg Q6H PRN Administration Non Cardiac Pain or Temp>100.5 Bisacodyl 10 mg 12/01/18 11:36 12/01/18 21:53 Dulcolax ND 10 mg QDAY PRN Administration Constipation Bisacodyl 10 mg 12/03/18 16:00 12/04/18 07:59 Dulcolax PO 12/09/18 08:01 10 mg QDAY ISABELLA Administration Epoetin Jeramy 10,000 unit 10/03/19 12:00 12/03/18 17:28 Procrit IV 10,000 unit TUTHSA ISABELLA Administration Cefazolin Sodium 1 gm in 50 mls @ 100 mls/hr 12/02/18 18:00 12/03/18 20:59 Ancef/Ns 1 Gm/50 Ml IV 12/27/18 18:29 Infused QPM ISABELLA Infusion Protocol Sodium Chloride 100 mls @ 999 mls/hr 12/02/18 09:33 Nacl 0.9% IV SISSY PRN Hypotension Metoprolol Tartrate 25 mg 12/04/18 14:00 12/04/18 13:18 Lopressor PO 25 mg TID ISABELLA Administration Ondansetron HCl 4 mg 12/01/18 11:36 12/03/18 20:30 Zofran Odt PO 4 mg Q8H PRN Administration Nausea And Vomiting Oxycodone/Acetaminophen 1 tab 12/01/18 11:37 12/04/18 08:02 Percocet 5/325 PO 1 tab Q6H PRN Administration Pain, Moderate (4-6) Polyethylene Glycol 17 gm 12/02/18 08:00 12/04/18 07:59 Miralax 3350 PO 17 gm QDAY ISABELLA Administration Sevelamer Carbonate 2,400 mg 12/01/18 18:30 12/04/18 11:41 Renvela PO 2,400 mg AC ISABELLA Administration Sodium Chloride 10 ml 12/01/18 11:37 Sodium Chloride Flush Syringe 10 Ml IV PRN PRN LINE FLUSH
[2018-12-04] MEDS: ANCEF/NS 1 GM/50 ML 1 GM/50 ML BAG IV SCH (22:36)
--- NOTE | 2018-12-05 02:12 | IRU Plan of Care ---
Interdisciplinary Plan of Care - IP IRU INTERDISCIPLINARY PLAN: [facility] Inpatient Rehab Unit Plan of Care IRU Interdisciplinary Care Plan Start: 12/01/18 17:36 Freq: Admission then PRN Status: Active Protocol: Document 12/03/18 09:09 TH (Rec: 12/03/18 09:23 TH [id number]) Interdisciplinary Problem List Interdisciplinary Problem List Interdisciplinary Problem List Impaired Bathing/Grooming, Query Text:Answers will Trigger Problems Impaired Dressing,Impaired and Outcomes on Worklist. Mobility,Impaired Transfers, Impaired Problem Solving,Pain Management,Knowledge Deficits, Community Reintergration, Impaired Home Management, Impaired Safety IRU Interdisciplinary Care Plan Therapy Services Therapy Services Will Include: Physical Therapy,Occupational Query Text:Patient will be seen for a Therapy minimum of 3 hours of daily therapy 5 out of 7 days a week. Therapy intensity may be adjusted within a 7 consecutive day period to effectively serve the individual needs of the patient. Treatment Frequency/Intensity/Duration Treatment Frequency 5x/week Treatment Intensity 3 hours per day Treatment Duration 14-21 days Problem Area: Eating/Swallowing Eating/Swallowing Outcomes Eating/Swallowing Interventions Problem Area: Bathing/Grooming Bathing/Grooming Outcomes Improve [place] w/ Grooming,Improve [place] w/ Bathing Bathing/Grooming Interventions ADL Training,Use of Assistive Devices,Therapeutic Exercise, Therapeutic Activity, Neuromuscular Re-Education, Balance Work,Activity Tolerance Work,Patient/ Caregiver Education Problem Area: Dressing Dressing Outcomes Improve [place] w/ UB Dressing,Improve [place] w/ LB Dressing Dressing Interventions ADL Training,Use of Assistive Devices,Neuromuscular Re- Education,Therapeutic Exercise ,Balance Work,Modalities, Patient/Caregiver Education Problem Area: Mobility Mobility Outcomes Improve [place] w/ Bed Mobility,Improve [place] w/ Ambulation,Improve [place] w/ Stairs/Curb, Improve [place] w/ Wheelchair Mobility Interventions Therapeutic Exercise, Neuromuscular Re-Ed.,Activity Tolerance Work,Use of Assistive Devices,Patient/ Caregiver Education,Bed Mobility Work,Gait Training,W/ C Mobility Work Problem Area: Transfers Transfers Outcomes Improve [place] w/ Bed Transfers,Improve [place] w/ Car Transfers Transfers Interventions Transfer Training,Therapeutic Exercise,Neuromuscular Re- Education,Activity Tolerance Work,Use of Assistive Devices, Patient/Caregiver Education Problem Area: Bowel/Bladder Managment Bowel/Bladder Outcomes Bowel/Bladder Interventions Problem Area: Toileting Toileting Outcomes Improve [place] w/ Toileting Toileting Interventions ADL Training,Balance Work,Use of Assistive Devices,Patient/ Caregiver Education Problem Area: Nutrition Nutrition Outcomes Nutrition Interventions Problem Area: Comprehension Comprehension Outcomes Comprehension Interventions Problem Area: Expression Expression Outcomes Expression Interventions Problem Area: Problem Solving Problem Solving Outcomes Improve Problem Solving Problem Solving Interventions Safety Education,Patient/ Caregiver Education Problem Area: Memory Memory Outcomes Memory Interventions Problem Area: Pain Management Pain Management Outcomes Demonstrate/Verbalize Pain Strategies Pain Management Interventions Medication Management,Use of Devices/Modalities (TENS, hot pack, cold pack, etc.), Positioning/Turning,Patient/ Caregiver Education Problem Area: Knowledge Deficits Knowledge Deficits Outcomes Knowledge Deficits Interventions Problem Area: Skin/Tissue Integrity Skin/Tissue Integrity Outcomes Skin/Tissue Integrity Interventions Problem Area: Social Interaction Social Interaction Outcomes Social Interaction Interventions Problem Area: Adjustment to Disability Adjustment to Disability Outcomes Adjustment to Disability Interventions Problem Area: Discharge Concerns Discharge Concerns Outcomes Discharge w/ Necessary Equipment,Have Home Health/ Outpatient Services Discharge Concerns Interventions Discharge Planning,Equipment Assessment, Acquisition and Placement,Family/Caregiver Conference,Family/Caregiver Training Problem Area: Community Reintegration Community Reintegration Outcomes Community Reintegration Interventions Problem Area: Home Management Home Management Outcomes Improve [place] w/ Home Management Home Management Interventions Clothing Care,Activity Tolerance Work,Leisure Skills Development,House Cleaning, Shopping,Patient/Caregiver Education Problem Area: Safety Safety Outcomes Provide Safe Environment, Demonstrate Good Safety w/ Transfers/Mobility Safety Interventions Identify Fall Risk,[place] Pt. to Environment,Reduce Environmental Hazards Problem Area: Medication Education Medication Education Outcomes Medication Education Interventions Problem Area: Diabetes Education Diabetes Education Outcomes Diabetes Education Interventions Problem Area: Oxygenation Oxygenation Outcomes Oxygenation Interventions Problem Area: Cardiovascular Cardiovascular Outcomes Cardiovascular Interventions Physician Only Medical Prognosis and Rehabilitation Potential (Completed by Physician) Medical prognosis is fair. Rehabilitation potential is good. Will need to monitor for complications related to commorbidities. This plan of care has been developed based on the findings from the pre- admission assessment, post admission physician evaluation, information gathered from the assessments from all therapy disciplines and other pertinent clinicians. The plan of care has been reviewed and discussed in collaboration with the interdisciplinary team. The plan of care will be reviewed and updated at least weekly.
[2018-12-05] MEDS: PERCOCET 5/325 PO PRN ×3 (05:27→18:46)
[2018-12-05] MEDS: MIRALAX 3350 PO SCH ×2 (06:18→11:14)
[2018-12-05] MEDS: DULCOLAX PO SCH ×2 (06:22→11:12)
--- NOTE | 2018-12-05 09:49 | Event Note ---
Date: 12/05/18 pt sitting in chair awaiting to start pt./rehab no cp or sob hr 90-105 bp 145/80 General appearance: no acute distress HEENT: Positive: PERRL, Normocephaly, Mucus Membranes Moist Neck: Positive: neck supple, trachea midline Cardiac: Positive: irregularly irregular, Lungs: Positive: Decreased Breath Sounds Neuro: Positive: Grossly Intact Abdomen: Negative: Tender Skin: Negative: Rash Musculoskeletal: No Pain Extremities: Absent: edema imp: afib esrd mssa bacteremia continue current mgt per nephrol,inf disease,hematol
[2018-12-05] MEDS: RENVELA PO SCH ×3 (10:45→18:46)
[2018-12-05] MEDS: LOPRESSOR PO SCH ×3 (11:07→21:39)
--- NOTE | 2018-12-05 12:00 | Progress Note ---
Assessment and Plan - Patient Problems (1) End stage renal disease Current Visit: No Status: Chronic Plan to address problem: Maintain on inpatient TTS HD schedule. (2) Sepsis Current Visit: No Status: Acute Qualifiers: Sepsis type: methicillin susceptible Staphylococcus aureus Plan to address problem: MSSA bactermia in setting of infected permcath with evidence of septic emboli on CT. S/P removal and replacement of permcath, with clearing of repeat blood cultures. TTE and SAMARIA noted without any evidence of vegetations. (3) Pneumonia Current Visit: No Status: Acute Qualifiers: Pneumonia type: due to unspecified organism Laterality: unspecified laterality Lung location: unspecified part of lung Qualified Code(s): J18.9 - Pneumonia, unspecified organism Plan to address problem: Improved, antibiotics per ID recommendations. (4) Secondary hyperparathyroidism (of renal origin) Current Visit: No Status: Chronic Plan to address problem: Continue home phos binder regimen. 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 chronic kidney disease or end stage renal disease Current Visit: No Status: Chronic Plan to address problem: Continue on current regimen. Subjective Date of service: 12/05/18 Principal diagnosis: septic emboli Interval history: No acute changes overnight. Seeing him before his HD session. He has just complete session of rehab and is complaining of knee and back pain. He got a dose of percocet prior to coming down to HD session today. Objective - Vital Signs Vital signs: Vital Signs - 12hr 12/05/18 12/05/18 12/05/18 00:17 05:06 05:08 Temperature 97.9 F Pulse Rate 90 99 H Respiratory 17 Rate Blood Pressure 151/84 O2 Sat by Pulse 90 96 96 Oximetry 12/05/18 06:53 Temperature 97.8 F Pulse Rate 107 H Respiratory 18 Rate Blood Pressure 145/80 O2 Sat by Pulse 96 Oximetry - General Appearance General appearance: well-nourished, appears stated age EENT: ATNC, PERRL Neck: no JVD, no thyromegaly Respiratory: Present: Clear to Ascultation, Normal Exam Cardiology: regular, S1S2 Gastrointestinal: normal, normoactive bowel sounds Integumentary: no rash Neurologic: no focal deficit Musculoskeletal: other (-edema ) Psychiatric: mood/affect appropriate, cooperative - Lab 12/04/18 14:12 12/04/18 12:57 Most recent lab results Calcium 8.7 mg/dL (8.4-10.2) 12/04/18 12:57 Phosphorus 5.90 mg/dL (2.5-4.5) H 12/03/18 06:14 - Allied health notes Allied health notes reviewed: nursing Medications & Allergies - Medications Allergies/Adverse Reactions: Allergies No Known Allergies Allergy (Verified 08/27/18 16:19) Home Medications: Home Medications Medication Instructions Recorded Confirmed Last Taken Type Acetaminophen [Acetaminophen 650 mg LA Q4H PRN supp.rect 11/26/18 12/02/18 12/01/18 Rx SUPPOS] Docusate Sodium [Colace CAP] 100 mg PO BID capsule 11/26/18 12/02/18 12/01/18 Rx Epoetin Jeramy 10,000 Unit [Procrit] 10,000 unit IV TuThSa vial 11/26/18 12/02/18 12/01/18 Rx Polyethylene Glycol 3350 [Miralax 17 gm PO BID PRN powd.pack 11/26/18 12/02/18 12/01/18 Rx 3350] Sevelamer Carbonate [Renvela] 2,400 mg PO AC tablet 11/26/18 12/02/18 12/01/18 Rx oxyCODONE /ACETAMINOPHEN [Percocet 1 tab PO Q6H PRN tablet 11/26/18 12/02/18 12/01/18 Rx 5/325 mg] Active Medications: Generic Name Dose Route Start Last Admin Trade Name Freq PRN Reason Stop Dose Admin Acetaminophen 650 mg 12/01/18 11:36 12/04/18 13:21 Tylenol PO 650 mg Q6H PRN Administration Non Cardiac Pain or Temp>100.5 Bisacodyl 10 mg 12/01/18 11:36 12/01/18 21:53 Dulcolax LA 10 mg QDAY PRN Administration Constipation Bisacodyl 10 mg 12/03/18 16:00 12/05/18 11:12 Dulcolax PO 12/09/18 08:01 Not Given QDAY ISABELLA Epoetin Jeramy 10,000 unit 12/03/18 12:00 12/03/18 17:28 Procrit IV 10,000 unit TUTHSA ISABELLA Administration Cefazolin Sodium 1 gm in 50 mls @ 100 mls/hr 12/02/18 18:00 12/04/18 22:36 Ancef/Ns 1 Gm/50 Ml IV 12/27/18 18:29 100 mls/hr QPM ISABELLA Administration Protocol Sodium Chloride 100 mls @ 999 mls/hr 12/02/18 09:33 Nacl 0.9% IV SISSY PRN Hypotension Metoprolol Tartrate 25 mg 12/04/18 14:00 12/05/18 11:07 Lopressor PO 25 mg TID ISABELLA Administration Ondansetron HCl 4 mg 12/01/18 11:36 12/03/18 20:30 Zofran Odt PO 4 mg Q8H PRN Administration Nausea And Vomiting Oxycodone/Acetaminophen 1 tab 12/01/18 11:37 12/05/18 11:07 Percocet 5/325 PO 1 tab Q6H PRN Administration Pain, Moderate (4-6) Polyethylene Glycol 17 gm 12/02/18 08:00 12/05/18 11:14 Miralax 3350 PO Not Given QDAY ISABELLA Sevelamer Carbonate 2,400 mg 12/01/18 18:30 12/05/18 10:45 Renvela PO 2,400 mg AC ISABELLA Administration Sodium Chloride 10 ml 12/01/18 11:37 Sodium Chloride Flush Syringe 10 Ml IV PRN PRN LINE FLUSH
[2018-12-05] MEDS ORDERED: NACL 0.9 (PRIMING MACHINE ONLY DIALYSIS) MC ONE (12:16)
--- NOTE | 2018-12-05 13:54 | Hem/Onc Progress Note ---
Assessment and Plan 1. Based on CT finding, it is septic emboli and not a thrombotic event. Anticoagulation is less likely to be helpful. 2. Anemia of chronic kidney disease, may have a role. This also can be multifactorial. We will follow 3. History of leukocytosis. 4. History of high PTH. 5. End-stage renal disease, on dialysis. 6. History of fever. 7. Fever issues. 8. Antibiotic and physical Therapy. 9. History of hypertension. 10. Pt has Permacath for dialysis issues. I will follow the patient during the inpatient stay and then in the clinic setting. Abx for now will follow anemia - b12 - folate - iron ferritin WNL 12/05/2018 - d/w dr block - reg fever - Patient Problems (1) Septic embolism Current Visit: Yes Status: Acute Subjective Date of service: 12/05/18 Principal diagnosis: anemia Interval history: fever issues+ Objective - Exam Narrative Exam: Pain - none General appearance - awake Performance status limited self care Eyes - no icterus ENT - no bleeding LNs cervical not palpable Neck - no LN Respiratory Normal Breath sounds - CTA anteriorly CVS S1 S2 + Extremities no calf tenderness General GI Soft Rectal deferred male - deferred Skin warm Musculoskeletal moving extremitites Neurologically awake - Constitutional Vitals: Last Vital Signs Temp 101.5 F H 12/05/18 11:40 Pulse 92 H 12/05/18 13:45 Resp 16 12/05/18 11:40 BP 152/59 12/05/18 13:45 Pulse Ox 96 12/05/18 11:40 - Labs Lab Results: Laboratory Results - last 24 hr 12/04/18 12/04/18 12/04/18 14:12 14:12 14:12 WBC 10.4 RBC 2.78 L Hgb 7.7 L Hct 23.5 L MCV 85 MCH 28 MCHC 33 RDW 16.2 H Plt Count 308 TSH 4.870 H Free T4 1.43 Medications & Allergies - Medications Allergies/Adverse Reactions: Allergies No Known Allergies Allergy (Verified 08/27/18 16:19) Home Medications: Home Medications Medication Instructions Recorded Confirmed Last Taken Type Acetaminophen [Acetaminophen 650 mg [place] Q4H PRN supp.rect 11/26/18 12/02/18 12/01/18 Rx SUPPOS] Docusate Sodium [Colace CAP] 100 mg PO BID capsule 09/12/02/18 12/01/18 Rx Epoetin Jeramy 10,000 Unit [Procrit] 10,000 unit IV TuThSa vial 11/26/18 12/02/18 12/01/18 Rx Polyethylene Glycol 3350 [Miralax 17 gm PO BID PRN powd.pack 11/26/18 12/02/18 12/01/18 Rx 3350] Sevelamer Carbonate [Renvela] 2,400 mg PO AC tablet 11/26/18 12/02/18 12/01/18 Rx oxyCODONE /ACETAMINOPHEN [Percocet 1 tab PO Q6H PRN tablet 11/26/18 12/02/18 12/01/18 Rx 5/325 mg] Active Medications: Generic Name Dose Route Start Last Admin Trade Name Freq PRN Reason Stop Dose Admin Acetaminophen 650 mg 12/01/18 11:36 12/04/18 13:21 Tylenol PO 650 mg Q6H PRN Administration Non Cardiac Pain or Temp>100.5 Bisacodyl 10 mg 12/01/18 11:36 12/01/18 21:53 Dulcolax IA 10 mg QDAY PRN Administration Constipation Bisacodyl 10 mg 12/03/18 16:00 12/05/18 11:12 Dulcolax PO 12/09/18 08:01 Not Given QDAY ISABELLA Epoetin Jeramy 10,000 unit 12/03/18 12:00 12/03/18 17:28 Procrit IV 10,000 unit TUTHSA ISABELLA Administration Cefazolin Sodium 1 gm in 50 mls @ 100 mls/hr 12/02/18 18:00 12/04/18 22:36 Ancef/Ns 1 Gm/50 Ml IV 12/27/18 18:29 100 mls/hr QPM ISABELLA Administration Protocol Sodium Chloride 100 mls @ 999 mls/hr 12/02/18 09:33 Nacl 0.9% IV SISSY PRN Hypotension Metoprolol Tartrate 25 mg 12/04/18 14:00 12/05/18 11:07 Lopressor PO 25 mg TID ISABELLA Administration Ondansetron HCl 4 mg 12/01/18 11:36 12/03/18 20:30 Zofran Odt PO 4 mg Q8H PRN Administration Nausea And Vomiting Oxycodone/Acetaminophen 1 tab 12/01/18 11:37 12/05/18 11:07 Percocet 5/325 PO 1 tab Q6H PRN Administration Pain, Moderate (4-6) Polyethylene Glycol 17 gm 12/02/18 08:00 12/05/18 11:14 Miralax 3350 PO Not Given QDAY ISABELLA Sevelamer Carbonate 2,400 mg 12/01/18 18:30 12/05/18 10:45 Renvela PO 2,400 mg AC ISABELLA Administration Sodium Chloride 10 ml 12/01/18 11:37 Sodium Chloride Flush Syringe 10 Ml IV PRN PRN LINE FLUSH
[2018-12-05] MEDS: PROCRIT IV SCH ×2 (14:35→14:36)
[2018-12-05] MEDS: ANCEF/NS 1 GM/50 ML 1 GM/50 ML BAG IV SCH (18:47)
--- NOTE | 2018-12-06 08:17 | Event Note ---
Date: 12/06/18 no cardiac complaints sitting in chair hr 90 bp 150/70 General appearance: no acute distress HEENT: Positive: PERRL, Normocephaly, Mucus Membranes Moist Neck: Positive: neck supple, trachea midline Cardiac: Positive: irregularly irregular, Lungs: Positive: Decreased Breath Sounds Neuro: Positive: Grossly Intact Abdomen: Negative: Tender Skin: Negative: Rash Musculoskeletal: No Pain Extremities: Absent: edema imp: afib esrd mssa bacteremia continue current mgt per nephrol,inf disease,hematol
[2018-12-06] MEDS: RENVELA PO SCH ×3 (08:34→18:29)
[2018-12-06] MEDS: DULCOLAX PO SCH (08:35)
[2018-12-06] MEDS: LOPRESSOR PO SCH ×3 (08:35→20:44)
[2018-12-06] MEDS: PERCOCET 5/325 PO PRN ×3 (08:37→20:45)
[2018-12-06] MEDS: MIRALAX 3350 PO SCH (08:43)
--- NOTE | 2018-12-06 10:31 | Consultation ---
History of Present Illness - Reason for Consult Consult date: 12/06/18 recurrent fever Requesting physician: BLADE NELSON - History of Present Illness 73 yo M PMHx HTN, ESRD on HD, hyperparathyroidism, OA known to ID due to recent MSSA bacteremia secondary to Vascular catheter infection, catheter removed. Repeat blood cultures from 11/15/2018 negative. Got new HD cath placed. TTE unremarkable for any vegetations. Intermittent fevers noted. CT chest abdomen and pelvis shows bilateral pulmonary septic emboli, no abdominal abscess. SAMARIA no vegetations. Discharged to Rehab on cefazolin IV on HD for 6 weeks ending 12/27/2018. Fevers continues at rehab and c/o multiple joint pains. Review of Systems: General: + fever, chills, no malaise Cutaneous: no rash, pruritus Head: no headaches or injury Eyes: no changes in vision, eye pain, double vision Ears: no ear pain, ear discharge, ringing or hearing loss Nose: no nose bleeding, stuffiness Mouth & throat: no bleeding gums, no horseness, no dental problems, or swollen glands Neck: no pain, node enlargement/lumps, tyroid enlargement or tenderness Respiratory: no SOB, no cough, no SHAIKH, wheezing, sputum, hemoptysis, pleuritic chest pain Cardiovascular: no chest pain, leg edema, cyanosis, SHAIKH, orthopnea Musculoskeletal: +right hip pain, madelyn knee pain and madelyn wrist pain Gastrointestinal: no nausea, no vomiting, no hematemesis, diarrhea, constipation, melena, bright red blood in stools, fecal incontinence, jaundice Genitourinary/Reproductive: no frequent urination, dysuria, hematuria, in continence Neurogical: no seizures, no headaches, no weakness, no paresthesias, no loss of speech or vision; no memory loss, no vertigo, no tremors, no numbness Psychiatric: stable mood; no excessive anxiety, sadness or moodiness Past History Past Medical History: ESRD, hypertension, other (hyperparathyroidism, osteoarthritis) Past Surgical History: Other (permcath placement ) Social history: full code. denies: smoking, alcohol abuse, prescription drug abuse, IV drug use Family history: diabetes, hypertension Medications and Allergies Allergies Allergy/AdvReac Type Severity Reaction Status Date / Time No Known Allergies Allergy Verified 08/27/18 16:19 Home Medications Medication Instructions Recorded Confirmed Last Taken Type Acetaminophen [Acetaminophen 650 mg [place] Q4H PRN supp.rect 11/26/18 12/02/18 12/01/18 Rx SUPPOS] Docusate Sodium [Colace CAP] 100 mg PO BID capsule 11/26/18 12/02/18 12/01/18 Rx Epoetin Jeramy 10,000 Unit [Procrit] 10,000 unit IV TuThSa vial 11/26/18 12/02/18 12/01/18 Rx Polyethylene Glycol 3350 [Miralax 17 gm PO BID PRN powd.pack 11/26/18 12/02/18 12/01/18 Rx 3350] Sevelamer Carbonate [Renvela] 2,400 mg PO AC tablet 11/26/18 12/02/18 12/01/18 Rx oxyCODONE /ACETAMINOPHEN [Percocet 1 tab PO Q6H PRN tablet 11/26/18 12/02/18 12/01/18 Rx 5/325 mg] Active Meds: Active Medications Acetaminophen (Tylenol) 650 mg PO Q6H PRN PRN Reason: Non Cardiac Pain or Temp>100.5 Last Admin: 12/04/18 13:21 Dose: 650 mg Documented by: Bisacodyl (Dulcolax) 10 mg [place] QDAY PRN PRN Reason: Constipation Last Admin: 12/01/18 21:53 Dose: 10 mg Documented by: Bisacodyl (Dulcolax) 10 mg PO QDAY [facility] Stop: 12/09/18 08:01 Last Admin: 12/06/18 08:35 Dose: 10 mg Documented by: Epoetin Jeramy (Procrit) 10,000 unit IV TUTHSA [facility] Last Admin: 12/05/18 14:36 Dose: 10,000 unit Documented by: Cefazolin Sodium (Ancef/Ns 1 Gm/50 Ml) 1 gm in 50 mls @ 100 mls/hr IV QPM [facility]; Protocol Stop: 12/27/18 18:29 Last Admin: 12/05/18 18:47 Dose: 100 mls/hr Documented by: Sodium Chloride (Nacl 0.9%) 100 mls @ 999 mls/hr IV SISSY PRN PRN Reason: Hypotension Metoprolol Tartrate (Lopressor) 25 mg PO TID [facility] Last Admin: 12/06/18 08:35 Dose: 25 mg Documented by: Ondansetron HCl (Zofran Odt) 4 mg PO Q8H PRN PRN Reason: Nausea And Vomiting Last Admin: 12/03/18 20:30 Dose: 4 mg Documented by: Oxycodone/Acetaminophen (Percocet 5/325) 1 tab PO Q6H PRN PRN Reason: Pain, Moderate (4-6) Last Admin: 12/06/18 08:37 Dose: 1 tab Documented by: Polyethylene Glycol (Miralax 3350) 17 gm PO QDAY [facility] Last Admin: 12/06/18 08:43 Dose: 17 gm Documented by: Sevelamer Carbonate (Renvela) 2,400 mg PO AC [facility] Last Admin: 12/06/18 08:34 Dose: 2,400 mg Documented by: Sodium Chloride (Sodium Chloride Flush Syringe 10 Ml) 10 ml IV PRN PRN PRN Reason: LINE FLUSH Physical Examination - Physical Exam Narrative exam: General appearance: Alert in NAD Eyes: anicteric sclerae, moist conjunctivae; no lid-lag; PERRLA HENT: Atraumatic; oropharynx clear with moist mucous membranes and no mucosal ulcerations/no oral thrush; normal hard and soft palate. Lungs: CTA, with normal respiratory effort and no intercostal retractions CV: RRR Abdomen: Soft, non-tender; no masses or hepatosplenomegaly Extremities: +madelyn wrist edema and tenderness, madelyn knee edema and tenderness, +right hip passive pain Skin: No rash. Psych: no agitated. Neuro: alert and oriented x 2 - Constitutional Vitals: Vital Signs Temp Pulse Resp BP Pulse Ox 98.9 F 94 H 18 153/70 100 12/06/18 07:15 12/06/18 07:15 12/06/18 07:15 12/06/18 07:15 12/06/18 07:15 Temperature -Last 24 Hours Temperature 98.9 F Temperature 99.2 F Temperature 98.9 F Temperature 99.3 F Temperature 99.3 F Temperature 97.8 F Temperature 101.5 F Results - Labs CBC & Chem 7: 12/04/18 14:12 12/04/18 12:57 Assessment and Plan Cultures: 11/12/2018 wound culture: MSSA 11/12/2018 vas cath culture: MSSA 11/12/2018 blood culture: MSSA 11/15/2018 blood culture: no growth 11/24/2018 blood culture: no growth Assessment: 73 yo M PMHx HTN, ESRD on HD, hyperparathyroidism, OA admitted with vascular catheter infection. 1. MSSA bacteremia secondary to Vascular catheter infection: catheter removed. Repeat blood cultures from 11/15/2018 negative. Got new HD cath placed. TTE unremarkable for any vegetations. Intermittent fevers continues felt to be septic emboli or gouty attack. CT chest abdomen and pelvis shows bilateral pulmonary septic emboli, no abdominal abscess. SAMARIA no vegetations. 2. Persistent fever: ? from septic emboli or gouty attack. History of madelyn wrist gout. Recs: repeat blood culture XR right hip, madelyn wrists and madelyn knees Gouty attack per IMS continue Cefazolin IV for total 6 weeks of post HD ending 12/27/2018 D/W Dr. Nelson Will follow. Nina Bhatia MD Infectious Diseases [facility] ([facility]) M [phone] O [phone]
[2018-12-06] MEDS: ANCEF/NS 1 GM/50 ML 1 GM/50 ML BAG IV SCH (17:32)
--- NOTE | 2018-12-06 17:36 | Event Note ---
Date: 12/06/18 Called by ID earlier today. Patient complained of joint pain at right hip, knees and wrists. Dr Puri rec uric acid and XRs. I have placed those orders. Patient has not complained of joint pain to me previously. Will consider further treatment once results available.
--- NOTE | 2018-12-06 20:16 | XRay Report ---
BILATERAL WRIST 6 VIEWS TOTAL INDICATION / CLINICAL INFORMATION: pain, gout. COMPARISON: None available. FINDINGS: Left wrist: SLAC wrist is present with moderate degenerative arthrosis of the radiocarpal joint. Mil d degenerative arthrosis is seen within the STT joint. No fracture is seen. Right wrist: Scapholunate advanced collapse SLAC wrist is present with moderately advanced degenerati ve changes of the radiocarpal joint. No acute fracture or dislocation is seen within the right wrist. Signer Name: Nishant Vega MD Signed: 12/06/2018 8:12 PM Workstation Name: [id number]
--- NOTE | 2018-12-06 20:17 | XRay Report ---
RIGHT HIP 2 VIEW(S) INDICATION / CLINICAL INFORMATION: Pain, gout COMPARISON: None available. FINDINGS: BONES / JOINT(S): No acute fracture or subluxation. Mild degenerative arthrosis of both hips. Both SI joints appear intact. SOFT TISSUES: No significant abnormality. ADDITIONAL FINDINGS: None. Signer Name: Nishant Vega MD Signed: 12/06/2018 8:13 PM Workstation Name: [id number]
--- NOTE | 2018-12-06 20:17 | XRay Report ---
BILATERAL KNEES 6 VIEWS TOTAL INDICATION / CLINICAL INFORMATION: Pain, gout. COMPARISON: None available. FINDINGS: Right knee: Small right knee effusion is present with mild degenerative arthrosis of patellofemoral a nd medial femoral tibial compartments. There is no fracture or dislocation. Left knee: Mild tricompartmental left knee degenerative arthrosis is present with small joint effusio n. No fracture or dislocation is seen. Signer Name: Nishant Vega MD Signed: 12/06/2018 8:13 PM Workstation Name: [id number]
[2018-12-07] MEDS: PERCOCET 5/325 PO PRN ×3 (06:33→22:17)
--- NOTE | 2018-12-07 07:22 | Hem/Onc Progress Note ---
Assessment and Plan 1. Based on CT finding, it is septic emboli and not a thrombotic event. Anticoagulation is less likely to be helpful. 2. Anemia of chronic kidney disease, may have a role. This also can be multifactorial. We will follow 3. History of leukocytosis. 4. History of high PTH. 5. End-stage renal disease, on dialysis. 6. History of fever. 7. Fever issues. 8. Antibiotic and physical Therapy. 9. History of hypertension. 10. Pt has Permacath for dialysis issues. I will follow the patient during the inpatient stay and then in the clinic setting. Abx for now will follow anemia - b12 - folate - iron ferritin WNL seen by ID ESRD pts get epo and iv iron with HD - Patient Problems (1) Septic embolism Current Visit: Yes Status: Acute Subjective Date of service: 12/07/18 Principal diagnosis: anemia - fever Interval history: seen by ID Objective - Exam Narrative Exam: Pain - none General appearance - awake Performance status limited self care Eyes - no icterus ENT - no bleeding LNs cervical not palpable Neck - no LN Respiratory Normal Breath sounds - CTA anteriorly CVS S1 S2 + Extremities no calf tenderness General GI Soft Rectal deferred male - deferred Skin warm Musculoskeletal moving extremitites Neurologically awake - Constitutional Vitals: Last Vital Signs Temp 99.3 F 12/07/18 04:54 Pulse 104 H 12/07/18 04:54 Resp 18 12/07/18 04:54 BP 152/73 12/07/18 04:54 Pulse Ox 97 12/07/18 04:54 - Labs Lab Results: Laboratory Results - last 24 hr 12/06/18 17:40 Uric Acid 5.1 Medications & Allergies - Medications Allergies/Adverse Reactions: Allergies No Known Allergies Allergy (Verified 08/27/18 16:19) Home Medications: Home Medications Medication Instructions Recorded Confirmed Last Taken Type Acetaminophen [Acetaminophen 650 mg [place] Q4H PRN supp.rect 11/26/18 12/02/18 12/01/18 Rx SUPPOS] Docusate Sodium [Colace CAP] 100 mg PO BID capsule 11/26/18 12/02/18 12/01/18 Rx Epoetin Jeramy 10,000 Unit [Procrit] 10,000 unit IV TuThSa vial 11/26/18 12/02/18 12/01/18 Rx Polyethylene Glycol 3350 [Miralax 17 gm PO BID PRN powd.pack 11/26/18 12/02/18 12/01/18 Rx 3350] Sevelamer Carbonate [Renvela] 2,400 mg PO AC tablet 11/26/18 12/02/18 12/01/18 Rx oxyCODONE /ACETAMINOPHEN [Percocet 1 tab PO Q6H PRN tablet 11/26/18 12/02/18 12/01/18 Rx 5/325 mg] Active Medications: Generic Name Dose Route Start Last Admin Trade Name Freq PRN Reason Stop Dose Admin Acetaminophen 650 mg 12/01/18 11:36 12/04/18 13:21 Tylenol PO 650 mg Q6H PRN Administration Non Cardiac Pain or Temp>100.5 Bisacodyl 10 mg 12/01/18 11:36 12/01/18 21:53 Dulcolax OK 10 mg QDAY PRN Administration Constipation Bisacodyl 10 mg 12/03/18 16:00 12/06/18 08:35 Dulcolax PO 12/09/18 08:01 10 mg QDAY ISABELLA Administration Epoetin Jeramy 10,000 unit 12/03/18 12:00 12/05/18 14:36 Procrit IV 10,000 unit TUTHSA ISABELLA Administration Cefazolin Sodium 1 gm in 50 mls @ 100 mls/hr 12/02/18 18:00 12/06/18 17:32 Ancef/Ns 1 Gm/50 Ml IV 12/27/18 18:29 100 mls/hr QPM ISABELLA Administration Protocol Sodium Chloride 100 mls @ 999 mls/hr 12/02/18 09:33 Nacl 0.9% IV SISSY PRN Hypotension Metoprolol Tartrate 25 mg 12/04/18 14:00 12/06/18 20:44 Lopressor PO 25 mg TID ISABELLA Administration Ondansetron HCl 4 mg 12/01/18 11:36 12/03/18 20:30 Zofran Odt PO 4 mg Q8H PRN Administration Nausea And Vomiting Oxycodone/Acetaminophen 1 tab 12/01/18 11:37 12/07/18 06:33 Percocet 5/325 PO 1 tab Q6H PRN Administration Pain, Moderate (4-6) Polyethylene Glycol 17 gm 12/02/18 08:00 12/06/18 08:43 Miralax 3350 PO 17 gm QDAY ISABELLA Administration Sevelamer Carbonate 2,400 mg 12/01/18 18:30 12/06/18 18:29 Renvela PO 2,400 mg AC ISABELLA Administration Sodium Chloride 10 ml 12/01/18 11:37 Sodium Chloride Flush Syringe 10 Ml IV PRN PRN LINE FLUSH
[2018-12-07] MEDS: DULCOLAX PO SCH (08:15)
[2018-12-07] MEDS: MIRALAX 3350 PO SCH (08:15)
[2018-12-07] MEDS: RENVELA PO SCH ×3 (08:15→17:12)
[2018-12-07] MEDS: LOPRESSOR PO SCH ×4 (08:15→21:34)
--- NOTE | 2018-12-07 09:31 | Progress Note ---
Assessment and Plan - Patient Problems (1) Hypertensive chronic kidney disease with stage 5 chronic kidney disease or end stage renal disease Current Visit: Yes Status: Acute Plan to address problem: Follow-up blood pressure on current medications (2) Altered mental status Current Visit: No Status: Acute Plan to address problem: Mental status has improved back to normal. Patient with severe deconditioning. Continue physical therapy (3) Anemia in CKD (chronic kidney disease) Current Visit: No Status: Acute Qualifiers: Chronic kidney disease stage: stage 5, not on chronic dialysis Qualified Code(s): N18.5 - Chronic kidney disease, stage 5; D63.1 - Anemia in chronic kidney disease Plan to address problem: Give erythropoietin on dialysis (4) Sepsis due to infected central venous catheter Current Visit: No Status: Acute Plan to address problem: MSSA bacteremia line related. Status post removal of permacath and new permacath placement. Repeat blood cultures negative. (5) ESRD (end stage renal disease) Current Visit: No Status: Chronic Plan to address problem: Hemodialysis on a Friday, and Friday schedule. (6) Pneumonia Current Visit: No Status: Acute Qualifiers: Pneumonia type: due to unspecified organism Laterality: unspecified laterality Lung location: unspecified part of lung Qualified Code(s): J18.9 - Pneumonia, unspecified organism Plan to address problem: h/o MSSA bactermia in the setting of infected RIJ Permcath, s/p removal with repeat cultures x 2 sets negative, s/p new permcath placement. Cont ABXs as per ID recommendations. CT chest/abdomen indicating evidence of septic emboli. TTE/SAMARIA were unremarkable for vegetations Subjective Date of service: 12/07/18 Principal diagnosis: anemia - fever Interval history: Patient seen sitting on wheelchair. He is here for physical therapy. Complains of abdominal discomfort with constipation and inability to pass urine. He has been given numerous laxatives with no improvement. Objective - Exam Narrative Exam: Frail elderly -[place] male lying in bed in no acute distress HEENT: NCAT, pink oral mucous membrane Neck: Supple, no venous distention CVS: S1S2 RRR with no murmur, rub or gallop Chest: Clear to auscultation Abdomen: Protuberant, soft, suprapubic distention, nontender, no organomegaly, bowel sounds are present Extremities: No edema Neuro: Awake, alert no focal deficits, decreased muscle power - Vital Signs Vital signs: Vital Signs - 12hr 12/07/18 12/07/18 12/07/18 04:54 07:54 08:48 Temperature 99.3 F 98.7 F Pulse Rate 104 H 97 H Respiratory 18 18 Rate Blood Pressure 152/73 161/81 O2 Sat by Pulse 97 96 96 Oximetry - Lab 12/04/18 14:12 12/04/18 12:57 Most recent lab results Calcium 8.7 mg/dL (8.4-10.2) 12/04/18 12:57 Phosphorus 5.90 mg/dL (2.5-4.5) H 12/03/18 06:14 Medications & Allergies - Medications Allergies/Adverse Reactions: Allergies No Known Allergies Allergy (Verified 08/27/18 16:19) Home Medications: Home Medications Medication Instructions Recorded Confirmed Last Taken Type Acetaminophen [Acetaminophen 650 mg [place] Q4H PRN supp.rect 11/26/18 12/02/18 12/01/18 Rx SUPPOS] Docusate Sodium [Colace CAP] 100 mg PO BID capsule 11/26/18 12/02/18 12/01/18 Rx Epoetin Jeramy 10,000 Unit [Procrit] 10,000 unit IV TuThSa vial 11/26/18 12/02/18 12/01/18 Rx Polyethylene Glycol 3350 [Miralax 17 gm PO BID PRN powd.pack 11/26/18 12/02/18 12/01/18 Rx 3350] Sevelamer Carbonate [Renvela] 2,400 mg PO AC tablet 11/26/18 12/02/18 12/01/18 Rx oxyCODONE /ACETAMINOPHEN [Percocet 1 tab PO Q6H PRN tablet 11/26/18 12/02/18 12/01/18 Rx 5/325 mg] Active Medications: Generic Name Dose Route Start Last Admin Trade Name Freq PRN Reason Stop Dose Admin Acetaminophen 650 mg 12/01/18 11:36 12/04/18 13:21 Tylenol PO 650 mg Q6H PRN Administration Non Cardiac Pain or Temp>100.5 Bisacodyl 10 mg 12/01/18 11:36 12/01/18 21:53 Dulcolax IN 10 mg QDAY PRN Administration Constipation Bisacodyl 10 mg 12/03/18 16:00 12/07/18 08:15 Dulcolax PO 12/09/18 08:01 10 mg QDAY ISABELLA Administration Epoetin Jeramy 10,000 unit 12/03/18 12:00 12/05/18 14:36 Procrit IV 10,000 unit TUTHSA ISABELLA Administration Cefazolin Sodium 1 gm in 50 mls @ 100 mls/hr 12/02/18 18:00 12/06/18 17:32 Ancef/Ns 1 Gm/50 Ml IV 12/27/18 18:29 100 mls/hr QPM ISABELLA Administration Protocol Sodium Chloride 100 mls @ 999 mls/hr 12/02/18 09:33 Nacl 0.9% IV SISSY PRN Hypotension Metoprolol Tartrate 50 mg 12/07/18 14:00 Lopressor PO TID ISABELLA Ondansetron HCl 4 mg 12/01/18 11:36 12/03/18 20:30 Zofran Odt PO 4 mg Q8H PRN Administration Nausea And Vomiting Oxycodone/Acetaminophen 1 tab 12/01/18 11:37 12/07/18 06:33 Percocet 5/325 PO 1 tab Q6H PRN Administration Pain, Moderate (4-6) Polyethylene Glycol 17 gm 12/02/18 08:00 12/07/18 08:15 Miralax 3350 PO 17 gm QDAY ISABELLA Administration Sevelamer Carbonate 2,400 mg 12/01/18 18:30 12/07/18 08:15 Renvela PO 2,400 mg AC ISABELLA Administration Sodium Chloride 10 ml 12/01/18 11:37 Sodium Chloride Flush Syringe 10 Ml IV PRN PRN LINE FLUSH
--- NOTE | 2018-12-07 10:27 | Progress Note ---
Assessment and Plan 73 yo M PMHx HTN, ESRD on HD, hyperparathyroidism, OA admitted with vascular catheter infection. 1. MSSA bacteremia secondary to Vascular catheter infection: catheter removed. Repeat blood cultures from 11/15/2018 negative. Got new HD cath placed. TTE unremarkable for any vegetations. Intermittent fevers continues felt to be s eptic emboli or gouty attack. CT chest abdomen and pelvis shows bilateral pulmonary septic emboli, no abdominal abscess. SAMARIA no vegetations. 2. Persistent fever: ? from septic emboli or gouty attack. History of madelyn wrist gout. Recs: repeat blood culture XR right hip, madelyn wrists and madelyn knees Gouty attack per IMS continue Cefazolin IV for total 6 weeks of post HD ending 12/27/2018 Will follow. Sarah Kenyon MD [facility] ([facility]) M: [phone] O: [phone] F: [phone] Subjective Date of service: 12/07/18 Principal diagnosis: anemia - fever Interval history: Afebrile, no new issues. Objective - Exam Narrative Exam: General appearance: Alert in NAD Eyes: anicteric sclerae, moist conjunctivae; no lid-lag; PERRLA HENT: Atraumatic; oropharynx clear with moist mucous membranes and no mucosal ulcerations/no oral thrush; normal hard and soft palate. Lungs: CTA, with normal respiratory effort and no intercostal retractions CV: RRR Abdomen: Soft, non-tender; no masses or hepatosplenomegaly Extremities: +madelyn wrist edema and tenderness, madelyn knee edema and tenderness, +right hip passive pain Skin: No rash. Psych: no agitated. Neuro: alert and oriented x 2 - Constitutional Vitals: Vital Signs Temp Pulse Resp BP Pulse Ox 98.7 F 97 H 18 161/81 96 12/07/18 07:54 12/07/18 07:54 12/07/18 07:54 12/07/18 07:54 12/07/18 08:48 Temperature -Last 24 Hours Temperature 98.7 F Temperature 99.3 F Temperature 98.5 F Temperature 98.5 F Temperature 98.9 F - Labs CBC & Chem 7: 12/07/18 12:41 12/07/18 12:41
--- NOTE | 2018-12-07 10:53 | Progress Note ---
Subjective Date of service: 12/07/18 Principal diagnosis: Debility, weakness, sepsis Interval history: 73-year-old male presented to the ER on November 11 with shortness of breath. He was noted to be febrile. Chest x-ray showed bilateral pneumonia and he was started on cefepime. He was noted to have purulent drainage from his dialysis catheter. It was removed and replaced. He developed altered mental status, MRI was negative. Infectious disease was consulted and started the patient on cefazolin which will be continued until 12/27/2018. His leukocytosis improved however he continued to spike occasional fevers even on antibiotics. Recommendation was made to obtain CT chest abdomen and pelvis which showed septic emboli in the bilateral lungs. SAMARIA was performed looking for cardiac vegetations but none were found. He remains fairly weak and will need continued close monitoring for antibiotic therapy, fevers and leukocytosis, end-stage renal disease and other possible worsening of condition. Patient is participating in therapy and making slow progress. Taking rest breaks as needed. Patient is tolerating metoprolol for rate control. Still has occasional breakthrough. Being monitored on telemetry by cardiology. Blood cultures drawn by ID over the weekend with no growth at 24 hours. Continues on antibiotics. Slight leukocytosis today at 12.4. Intermittent episodes of fever, none currently. Patient does have history of arthritis and his joints reflect that on x-ray. States he has gout which was also related to me by consulting physician. Uric acid is below normal for someone with gout. States that he only takes a green tea tablet at home for and does not take anything like probenecid, colchicine, allopurinol, etc. He has never mention the joint pain to me since he's been on the unit and on exam today states that it does hurt was some movements however on outpatient of the joints does not give me the sense that this is gout pain. +BM. Denies pain, palpitations, chest pain, dyspnea, cough, N/V, weakness, or joint pain. Still having issues with constipation. Patient remains distended, is producing flatus, does not have nausea vomiting but appetite is decreased. Patient continues to have intermittent fevers. We'll continue antibiotics and monitor for any further issues. ID is monitoring patient's well. Awaiting results of blood cultures. Tolerating dialysis well. All records, vitals, labs and medications were reviewed. No other issues per patient, nursing or therapy. Objective - Exam Narrative Exam: MUSCULOSKELETAL SPECIALTY EXAM CONSTITUTIONAL: Well developed, well nourished, appropriately groomed EENT: EOMI. Hearing intact to soft voice RESPIRATORY: Clear to auscultation bilaterally, no increased work of breathing, on O2 NC 2L CARDIOVASCULAR: Irregular rate, irregular rhythm, no swelling, edema or tenderness in BUE or BLE. All extremities warm. GI: + bowel sounds, soft, NTTP, distended. INTEGUMENTARY: Normal, no lesion, rash, masses or bruising noted in extremities. MUSCULOSKELETAL: BUE and BLE normal without defect, crepitus, subluxation, or TTP. Effusions at the bilateral wrists noted. No noted effusions on visual exam at the knees. Slight arthritic changes also noted at wrists. There is some tenderness to range of motion of the wrist but no discrete tenderness to palpation as I would expect with a gout exacerbation. BUE 3/5, reduced ROM, with normal tone. BLE 3/5 reduced ROM, with normal tone. NEURO: CN 2-12 grossly intact. Sensation intact in all extremities. Coordination slightly impaired in BUE. No tremor noted in 4 extremities. POSTURE and GAIT: Sitting posture impaired. Balance decreased. Gait deferred until seen with therapy. PSYCH: Alert, oriented x3, affect appears normal. Insight appears intact. - Constitutional Vitals: Vital Signs - 12hr 12/07/18 12/07/18 12/07/18 04:54 07:54 08:48 Temperature 37.4 C 37.1 C Pulse Rate 104 H 97 H Respiratory 18 18 Rate Blood Pressure 152/73 161/81 O2 Sat by Pulse 97 96 96 Oximetry - Allied health notes Allied health notes reviewed: nursing, PT, OT FIMS assessment as documented by PT/OT/ST: Social interaction/Memory/Problem solving Social Interaction FIM Score 5. Supervision (Needs supv. <10%. Needs encouragement to participate.) Memory FIM Score 4. Minimal Assistance (Recognizes and remembers 75-90%.) Problem Solving FIM Score 5. Supervision (Needs cueing <10% to solve routine problems.) Transfers Mode of Locomotion: Wheelchair Bed/Chair/Wheelchair Transfers 2. Maximal Assistance (Patient = 25% or more) FIM Score Locomotion- walk/wheelchair Ambulation Distance 6 - Labs CBC & Chem 7: 12/07/18 12:41 12/07/18 12:41 Labs: Laboratory Results - last 72 hr 12/04/18 12/04/18 12/04/18 12:57 14:12 14:12 WBC 10.4 RBC 2.78 L Hgb 7.7 L Hct 23.5 L MCV 85 MCH 28 MCHC 33 RDW 16.2 H Plt Count 308 Sodium 134 L Potassium 3.9 Chloride 92.1 L Carbon Dioxide 26 Anion Gap 20 BUN 26 H Creatinine 4.5 H Estimated GFR 16 BUN/Creatinine Ratio 6 Glucose 108 H Uric Acid Calcium 8.7 TSH Free T4 1.43 12/04/18 12/06/18 14:12 17:40 WBC RBC Hgb Hct MCV MCH MCHC RDW Plt Count Sodium Potassium Chloride Carbon Dioxide Anion Gap BUN Creatinine Estimated GFR BUN/Creatinine Ratio Glucose Uric Acid 5.1 Calcium TSH 4.870 H Free T4 - Imaging and cardiology Other: report reviewed, image reviewed Assessment and Plan New onset atrial fibrillation: EKG obtain which confirms. Reviewed previous rhythm strips and EKGs while patient was on the acute care side of the hospital. One rhythm strip from acute stay showed an incident of atrial fibrillation. We will consult internal medicine and cardiology for further management PNA and Sepsis (MSSA) with persistent fevers on abx: cont cefazolin until 12/27/18. Monitor for any signs of worsening pneumonia and are leukocytosis. Expect to continue seeing the intermittent fevers and will treat with Tylenol as needed. Patient does have bilateral pulmonary septic emboli. SAMARIA did not show vegetations. Infectious disease also monitoring. Blood cultures pending ESRD on HD: Continue hemodialysis per nephrology and renally dose medications including antibiotics. Hypertension: Continue medications, adjust as needed for normotension Anemia: Continue to monitor hemoglobin. Continue erythropoietin. Transfuse as needed Thyroid nodule seen on CT: We'll schedule follow-up. Z73.6 ADL dysfunction: OT will work on improving ability to perform ADLs (including assistive devices) to increase independence and decrease caregiver burden and improve functional transfers and mobility training. R26.2 Difficulty walking: PT will work on gait training and proper use of assistive devices and advance as appropriate to use of stairs and outside ambulation on uneven surfaces. R26.81 Unsteadiness on feet: PT will work on improving static and dynamic sitting and standing balance as well as proper use of assistive devices to decrease risk of falls. R26.89 Abnormality of gait: PT will work to improve safety and efficiency of gait through neuromotor training and gait training along with instruction on proper use of assistive devices. M62.81 Muscle weakness: PT & OT will work on strengthening exercises to improve functional strength including mixture of closed and open kinetic chain exercises. R53.81 Debility: PT & OT will work on improving overall functional status to improve participation with ADLs, mobility and social involvement. R53.83 Fatigue: PT & OT will work on improving endurance through aerobic exercises and therapeutic activity while monitoring patients tolerance for activity and vital signs as needed. K59.00 Constipation: Bisacodyl supp today. Dulcolax PO and miralax. DVT ppx: SCDs, Will start heparin once Hgb has improved Pain: Continue physical modalities in therapy and pain medications as needed to achieve functional pain control. Sleep: Monitor and address as needed. Bowel: Monitor and address as needed. Appetite: Monitor and address as needed. Discharge planning: Pending therapy progress and care plan meeting. Will continue discussion with therapy team, SW, patient and family. Restrictions/ Precautions: Falls WB status: FWB Functional Hx: ADLs: Independent Cognition: Independent Mobility: No AD Barriers to Discharge: Decreased mobility and ability to perform self care, balance deficits, weakness Estimated Length of Stay: 1418 days Discharge Destination: Home with family
--- NOTE | 2018-12-07 13:03 | Progress Note ---
Assessment and Plan Optimize HR - increase lopressor dosage. Pt would benefit from systemic AC in regards to atrial fibrillation. However, he is noted to be anemic and has h/o thrombocytopenia. Recommend initiation of systemic AC if no contraindications and if okay per hematology. Coumadin or NOAC could be considered. The patient has been seen in conjunction with Dr. Oliveira who agrees with the assessment and plan of care. - Patient Problems (1) Atrial fibrillation with RVR Current Visit: Yes Status: Acute (2) Sepsis Current Visit: Yes Status: Acute Qualifiers: Sepsis type: methicillin susceptible Staphylococcus aureus (3) MSSA bacteremia Current Visit: Yes Status: Acute (4) Pneumonia Current Visit: Yes Status: Acute Qualifiers: Pneumonia type: due to unspecified organism Laterality: unspecified laterality Lung location: unspecified part of lung Qualified Code(s): J18.9 - Pneumonia, unspecified organism (5) Septic embolism Current Visit: Yes Status: Acute (6) Anemia Current Visit: Yes Status: Acute (7) ESRD (end stage renal disease) Current Visit: Yes Status: Chronic (8) Hyperparathyroidism Current Visit: Yes Status: Chronic Subjective Date of service: 12/07/18 Principal diagnosis: Debility, weakness, sepsis, AFib Interval history: pt resting in bed, no current cardiac complaints, c/o knee pain. in AFib RVR on tele, HR 120s. Objective Last Vital Signs Temp 98.4 F 12/07/18 11:26 Pulse 118 H 12/07/18 11:26 Resp 18 12/07/18 11:26 BP 128/71 12/07/18 11:26 Pulse Ox 100 12/07/18 11:26 - Physical Examination General: No Apparent Distress HEENT: Positive: PERRL, Normocephaly, Mucus Membranes Moist Neck: Positive: neck supple, trachea midline Cardiac: Positive: irregularly irregular, S1/S2 Lungs: Positive: Decreased Breath Sounds Neuro: Positive: Grossly Intact Abdomen: Negative: Tender Skin: Negative: Rash Musculoskeletal: other (knee pain) Extremities: Absent: edema - Imaging and Cardiology EKG: report reviewed, image reviewed Echo: report reviewed (TTE done 11/15/2018 showed EF 45-50%, RV mildly dilated, catheter in RA, trace MR, mild TR, trivial pericardial effusion - pt was noted to be in atrial fibrillation at the time of this echo, cardiology was not consulted.) - Telemetry EKG Rhythm: Atrial Fibrillation - Allied health notes Allied health notes reviewed: nursing
[2018-12-07 13:24] LABS: Hematocrit 21.5 % (35.5-45.6); Hemoglobin 6.9 gm/dl (11.8-15.2); Mean Corpuscular HGB Conc 32 % (32-34); Mean Corpuscular Volume 84 fl (84-94); Platelet Count 332 K/mm3 (140-440); Red Blood Count 2.55 M/mm3 (3.65-5.03); Red Cell Distribution Width 16.6 % (13.2-15.2)
[2018-12-07 13:33] LABS: Calcium 8.8 mg/dL (8.4-10.2)
[2018-12-07] MEDS: DULCOLAX PR PRN ×3 (15:43→23:10)
[2018-12-07] MEDS: ANCEF/NS 1 GM/50 ML 1 GM/50 ML BAG IV SCH ×2 (17:14→22:18)
[2018-12-07] MEDS: SORBITOL 70% PO PRN ×2 (17:31→21:14)
[2018-12-07] MEDS: PROCRIT IV SCH ×2 (20:24→22:19)
[2018-12-08] MEDS: PERCOCET 5/325 PO PRN ×2 (05:28→17:57)
[2018-12-08] MEDS: ZOFRAN ODT PO PRN (05:29)
[2018-12-08] MEDS: DULCOLAX PR PRN (06:09)
--- NOTE | 2018-12-08 08:01 | Hem/Onc Progress Note ---
Assessment and Plan 1. Based on CT finding, it is septic emboli and not a thrombotic event. Anticoagulation is less likely to be helpful. 2. Anemia of chronic kidney disease, may have a role. This also can be multifactorial. We will follow 3. History of leukocytosis. 4. History of high PTH. 5. End-stage renal disease, on dialysis. 6. History of fever. 7. Fever issues. 8. Antibiotic and physical Therapy. 9. History of hypertension. 10. Pt has Permacath for dialysis issues. I will follow the patient during the inpatient stay and then in the clinic setting. Abx for now will follow anemia - b12 - folate - iron ferritin WNL seen by ID ESRD pts get epo and iv iron with HD 12/08- PRBC - d/w nephrology - Patient Problems (1) Septic embolism Current Visit: Yes Status: Acute Subjective Date of service: 12/08/18 Principal diagnosis: anemia Interval history: confusion - as per RN Objective - Exam Narrative Exam: Pain - none General appearance - awake Performance status limited self care Eyes - no icterus ENT - no bleeding LNs cervical not palpable Neck - no LN Respiratory Normal Breath sounds - CTA anteriorly CVS S1 S2 + Extremities no calf tenderness General GI Soft Rectal deferred male - deferred Skin warm Musculoskeletal moving extremitites Neurologically awake - Constitutional Vitals: Last Vital Signs Temp 98.4 F 12/08/18 07:13 Pulse 74 12/08/18 07:13 Resp 18 12/08/18 07:13 BP 177/81 12/08/18 07:13 Pulse Ox 96 12/08/18 07:13 - Labs Lab Results: Laboratory Results - last 24 hr 12/07/18 12/07/18 12:41 12:41 WBC 12.4 H RBC 2.55 L Hgb 6.9 L Hct 21.5 L MCV 84 MCH 27 L MCHC 32 RDW 16.6 H Plt Count 332 Sodium 130 L Potassium 4.1 Chloride 89.2 L Carbon Dioxide 26 Anion Gap 19 BUN 36 H Creatinine 6.7 H Estimated GFR 10 BUN/Creatinine Ratio 5 Glucose 102 H Calcium 8.8 Medications & Allergies - Medications Allergies/Adverse Reactions: Allergies No Known Allergies Allergy (Verified 08/27/18 16:19) Home Medications: Home Medications Medication Instructions Recorded Confirmed Last Taken Type Acetaminophen [Acetaminophen 650 mg GA Q4H PRN supp.rect 0912/02/18 12/01/18 Rx SUPPOS] Docusate Sodium [Colace CAP] 100 mg PO BID capsule 11/26/18 12/02/18 12/01/18 Rx Epoetin Jeramy 10,000 Unit [Procrit] 10,000 unit IV TuThSa vial 11/26/18 12/02/18 12/01/18 Rx Polyethylene Glycol 3350 [Miralax 17 gm PO BID PRN powd.pack 11/26/18 12/02/18 12/01/18 Rx 3350] Sevelamer Carbonate [Renvela] 2,400 mg PO AC tablet 11/26/18 12/02/18 12/01/18 Rx oxyCODONE /ACETAMINOPHEN [Percocet 1 tab PO Q6H PRN tablet 11/26/18 12/02/18 12/01/18 Rx 5/325 mg] Active Medications: Generic Name Dose Route Start Last Admin Trade Name Freq PRN Reason Stop Dose Admin Acetaminophen 650 mg 12/01/18 11:36 12/04/18 13:21 Tylenol PO 650 mg Q6H PRN Administration Non Cardiac Pain or Temp>100.5 Bisacodyl 10 mg 12/01/18 11:36 12/07/18 23:10 Dulcolax GA 10 mg QDAY PRN Administration Constipation Bisacodyl 10 mg 12/03/18 16:00 12/07/18 08:15 Dulcolax PO 12/09/18 08:01 10 mg QDAY ISABELLA Administration Epoetin Jeramy 10,000 unit 12/03/18 12:00 12/07/18 22:19 Procrit IV Not Given [facility] Cefazolin Sodium 1 gm in 50 mls @ 100 mls/hr 12/02/18 18:00 12/07/18 22:18 Ancef/Ns 1 Gm/50 Ml IV 12/27/18 18:29 100 mls/hr QPM ISABELLA Administration Protocol Sodium Chloride 100 mls @ 999 mls/hr 12/02/18 09:33 Nacl 0.9% IV SISSY PRN Hypotension Metoprolol Tartrate 50 mg 12/07/18 14:00 12/07/18 21:34 Lopressor PO 50 mg TID ISABELLA Administration Ondansetron HCl 4 mg 12/01/18 11:36 12/08/18 05:29 Zofran Odt PO 4 mg Q8H PRN Administration Nausea And Vomiting Oxycodone/Acetaminophen 1 tab 12/01/18 11:37 12/08/18 05:28 Percocet 5/325 PO 1 tab Q6H PRN Administration Pain, Moderate (4-6) Polyethylene Glycol 17 gm 12/02/18 08:00 12/07/18 08:15 Miralax 3350 PO 17 gm QDAY ISABELLA Administration Sevelamer Carbonate 2,400 mg 12/01/18 18:30 12/07/18 17:12 Renvela PO Not Given AC ISABELLA Sodium Chloride 10 ml 12/01/18 11:37 Sodium Chloride Flush Syringe 10 Ml IV PRN PRN LINE FLUSH Sorbitol 30 ml 12/07/18 11:00 12/07/18 21:14 Sorbitol 70% PO 30 ml PRN PRN Administration Constipation
[2018-12-08] MEDS: LOPRESSOR PO SCH ×3 (08:29→21:11)
[2018-12-08] MEDS: RENVELA PO SCH ×3 (08:29→17:58)
[2018-12-08] MEDS: DULCOLAX PO SCH (08:32)
[2018-12-08] MEDS: MIRALAX 3350 PO SCH (08:33)
[2018-12-08] MEDS ORDERED: NACL 0.9% 500 ML 500 ML IV ONE (08:44)
[2018-12-08] MEDS ORDERED: LOPRESSOR PO SCH (09:00)
--- NOTE | 2018-12-08 10:39 | Progress Note ---
Assessment and Plan Pt currently in SR. BPs elevated - increase lopressor. Pt is noted to be more anemic this morning and is pending PRBC tx per hematology. Pt may benefit from systemic AC in regards to atrial fibrillation. However, will not initiate at this time due to anemia and has h/o thrombocytopenia. The patient has been seen in conjunction with Dr. Oliveira who agrees with the assessment and plan of care. - Patient Problems (1) Atrial fibrillation with RVR Current Visit: Yes Status: Acute (2) Sepsis Current Visit: Yes Status: Acute Qualifiers: Sepsis type: methicillin susceptible Staphylococcus aureus (3) MSSA bacteremia Current Visit: Yes Status: Acute (4) Pneumonia Current Visit: Yes Status: Acute Qualifiers: Pneumonia type: due to unspecified organism Laterality: unspecified laterality Lung location: unspecified part of lung Qualified Code(s): J18.9 - Pneumonia, unspecified organism (5) Septic embolism Current Visit: Yes Status: Acute (6) Anemia Current Visit: Yes Status: Acute (7) ESRD (end stage renal disease) Current Visit: Yes Status: Chronic (8) Hyperparathyroidism Current Visit: Yes Status: Chronic Subjective Date of service: 12/08/18 Principal diagnosis: anemia - fever Interval history: pt resting in bed, no current cardiac complaints. in SR on telemetry, no AFib overnight. Objective Last Vital Signs Temp 98.4 F 12/08/18 07:13 Pulse 74 12/08/18 08:29 Resp 18 12/08/18 07:13 BP 177/81 12/08/18 08:29 Pulse Ox 96 12/08/18 07:13 - Physical Examination General: No Apparent Distress HEENT: Positive: PERRL, Normocephaly, Mucus Membranes Moist Neck: Positive: neck supple, trachea midline Cardiac: Positive: Reg Rate and Rhythm, S1/S2 Lungs: Positive: Decreased Breath Sounds Neuro: Positive: Grossly Intact Abdomen: Negative: Tender Skin: Negative: Rash Musculoskeletal: other (knee pain) Extremities: Absent: edema - Labs and Meds CBC 12/07/18 Range/Units 12:41 WBC 12.4 H (4.5-11.0) K/mm3 RBC 2.55 L (3.65-5.03) M/mm3 Hgb 6.9 L (11.8-15.2) gm/dl Hct 21.5 L (35.5-45.6) % Plt Count 332 (140-440) K/mm3 Comprehensive Metabolic Panel 12/07/18 Range/Units 12:41 Sodium 130 L (137-145) mmol/L Potassium 4.1 (3.6-5.0) mmol/L Chloride 89.2 L (98-107) mmol/L Carbon Dioxide 26 (22-30) mmol/L BUN 36 H (9-20) mg/dL Creatinine 6.7 H (0.8-1.5) mg/dL Glucose 102 H (75-100) mg/dL Calcium 8.8 (8.4-10.2) mg/dL - Imaging and Cardiology EKG: report reviewed, image reviewed Echo: report reviewed (TTE done 11/15/2018 showed EF 45-50%, RV mildly dilated, catheter in RA, trace MR, mild TR, trivial pericardial effusion - pt was noted to be in atrial fibrillation at the time of this echo, cardiology was not consulted.) - Telemetry EKG Rhythm: Sinus Rhythm - Allied health notes Allied health notes reviewed: nursing
[2018-12-08] MEDS ORDERED: NACL 0.9 (PRIMING MACHINE ONLY DIALYSIS) MC ONE (15:09)
[2018-12-08] MEDS: PROCRIT IV SCH ×2 (15:15→15:53)
--- NOTE | 2018-12-08 15:34 | Progress Note ---
Assessment and Plan 73 yo M PMHx HTN, ESRD on HD, hyperparathyroidism, OA admitted with vascular catheter infection. 1. MSSA bacteremia secondary to Vascular catheter infection: catheter removed. Repeat blood cultures from 11/15/2018 negative. Got new HD cath placed. TTE unremarkable for any vegetations. Intermittent fevers continues felt to be s eptic emboli or gouty attack. CT chest abdomen and pelvis shows bilateral pulmonary septic emboli, no abdominal abscess. SAMARIA no vegetations. 2. Persistent fever: ? from septic emboli or gouty attack. History of madelyn wrist gout. Recs: repeat blood culture XR right hip, madelyn wrists and madelyn knees Gouty attack per IMS continue Cefazolin IV for total 6 weeks of post HD ending 12/27/2018 Will follow. Sarah eKnyon MD [facility] M: [phone] O: [phone] F: [phone] Subjective Date of service: 12/08/18 Principal diagnosis: anemia - fever Interval history: Afebrile, no new issues. Objective - Exam Narrative Exam: General appearance: Alert in NAD Eyes: anicteric sclerae, moist conjunctivae; no lid-lag; PERRLA HENT: Atraumatic; oropharynx clear with moist mucous membranes and no mucosal ulcerations/no oral thrush; normal hard and soft palate. Lungs: CTA, with normal respiratory effort and no intercostal retractions CV: RRR Abdomen: Soft, non-tender; no masses or hepatosplenomegaly Extremities: +madelyn wrist edema and tenderness, madelyn knee edema and tenderness, +right hip passive pain Skin: No rash. Psych: no agitated. Neuro: alert and oriented x 2 - Constitutional Vitals: Vital Signs Temp Pulse Resp BP Pulse Ox 98.6 F 74 18 172/85 95 12/08/18 13:40 12/08/18 14:00 12/08/18 13:40 12/08/18 14:00 12/08/18 09:45 Temperature -Last 24 Hours Temperature 98.6 F Temperature 98.6 F Temperature 98.6 F Temperature 98.6 F Temperature 98.6 F Temperature 98.4 F Temperature 97.5 F Temperature 98.5 F Temperature 98.6 F - Labs CBC & Chem 7: 12/07/18 12:41 12/07/18 12:41 Labs: Abnormal lab results 12/08/18 Range/Units 09:12 Crossmatch See Detail
[2018-12-08] MEDS: ANCEF/NS 1 GM/50 ML 1 GM/50 ML BAG IV SCH (17:58)
--- NOTE | 2018-12-08 19:10 | Progress Note ---
Assessment and Plan - Patient Problems (1) Hypertensive chronic kidney disease with stage 5 chronic kidney disease or end stage renal disease Current Visit: Yes Status: Acute Plan to address problem: Follow-up blood pressure on current medications (2) Altered mental status Current Visit: No Status: Acute Plan to address problem: Mental status has improved back to normal. Patient with severe deconditioning. Continue physical therapy (3) Anemia in CKD (chronic kidney disease) Current Visit: No Status: Acute Qualifiers: Chronic kidney disease stage: stage 5, not on chronic dialysis Qualified Code(s): N18.5 - Chronic kidney disease, stage 5; D63.1 - Anemia in chronic kidney disease Plan to address problem: Agree with packed red blood cell transfusions. Continue erythropoietin on dialysis (4) Sepsis due to infected central venous catheter Current Visit: No Status: Acute Plan to address problem: MSSA bacteremia line related. Status post removal of permacath and new permacath placement. Repeat blood cultures negative. Continue antibiotics per infectious disease (5) ESRD (end stage renal disease) Current Visit: Yes Status: Chronic Plan to address problem: Hemodialysis on a Friday, and Friday schedule. (6) Pneumonia Current Visit: Yes Status: Acute Qualifiers: Pneumonia type: due to unspecified organism Laterality: unspecified laterality Lung location: unspecified part of lung Qualified Code(s): J18.9 - Pneumonia, unspecified organism Plan to address problem: h/o MSSA bactermia in the setting of infected RIJ Permcath, s/p removal with repeat cultures x 2 sets negative, s/p new permcath placement. Cont ABXs as per ID recommendations. CT chest/abdomen indicating evidence of septic emboli. TTE/SAMARIA were unremarkable for vegetations (7) Constipation Current Visit: Yes Status: Acute Plan to address problem: Check KUB. Continue sorbitol Subjective Date of service: 12/08/18 Principal diagnosis: anemia - fever Interval history: Patient seen lying in bed. and friend at the bedside. He still complains of constipation. He feels like he has to have a bowel movement but nothing comes out. Nurses report that patient had 3 bowel movements last night and 1 during the day today. Objective - Exam Narrative Exam: Frail elderly -[place] male lying in bed in no acute distress HEENT: NCAT, pink oral mucous membrane Neck: Supple, no venous distention CVS: S1S2 RRR with no murmur, rub or gallop Chest: Clear to auscultation Abdomen: Protuberant, soft, suprapubic distention, nontender, no organomegaly, bowel sounds are present Extremities: No edema Neuro: Awake, alert no focal deficits, decreased muscle power - Vital Signs Vital signs: Vital Signs - 12hr 12/08/18 12/08/18 12/08/18 07:13 08:29 09:45 Temperature 98.4 F Pulse Rate 74 74 Respiratory 18 Rate Blood Pressure 177/81 177/81 Blood Pressure [Left] O2 Sat by Pulse 96 95 Oximetry 12/08/18 12/08/18 12/08/18 11:45 12:00 12:15 Temperature 98.6 F Pulse Rate 68 67 65 Respiratory 18 Rate Blood Pressure 130/71 158/79 164/81 Blood Pressure [Left] O2 Sat by Pulse Oximetry 12/08/18 12/08/18 12/08/18 12:30 12:45 13:00 Temperature 98.6 F 98.6 F Pulse Rate 70 70 76 Respiratory 18 18 Rate Blood Pressure 146/80 176/80 166/86 Blood Pressure [Left] O2 Sat by Pulse Oximetry 12/08/18 12/08/18 12/08/18 13:15 13:30 13:40 Temperature 98.6 F 98.6 F Pulse Rate 70 75 78 Respiratory 18 18 Rate Blood Pressure 155/83 151/76 174/81 Blood Pressure [Left] O2 Sat by Pulse Oximetry 12/08/18 12/08/18 12/08/18 13:45 14:00 14:15 Temperature Pulse Rate 78 74 72 Respiratory Rate Blood Pressure 174/87 172/85 176/82 Blood Pressure [Left] O2 Sat by Pulse Oximetry 12/08/18 12/08/18 12/08/18 14:30 14:45 15:00 Temperature Pulse Rate 83 77 78 Respiratory Rate Blood Pressure 171/76 156/64 156/68 Blood Pressure [Left] O2 Sat by Pulse Oximetry 12/08/18 12/08/18 12/08/18 15:15 15:30 16:00 Temperature 98.4 F 98 F Pulse Rate 80 76 85 Respiratory 18 20 Rate Blood Pressure 165/71 160/70 Blood Pressure 158/75 [Left] O2 Sat by Pulse 98 Oximetry - Lab 12/07/18 12:41 12/07/18 12:41 Most recent lab results Calcium 8.8 mg/dL (8.4-10.2) 12/07/18 12:41 Phosphorus 5.90 mg/dL (2.5-4.5) H 12/03/18 06:14 Medications & Allergies - Medications Allergies/Adverse Reactions: Allergies No Known Allergies Allergy (Verified 08/27/18 16:19) Home Medications: Home Medications Medication Instructions Recorded Confirmed Last Taken Type Acetaminophen [Acetaminophen 650 mg [place] Q4H PRN supp.rect 11/26/18 12/02/18 12/01/18 Rx SUPPOS] Docusate Sodium [Colace CAP] 100 mg PO BID capsule 11/26/18 12/02/18 12/01/18 Rx Epoetin Jeramy 10,000 Unit [Procrit] 10,000 unit IV TuThSa vial 11/26/18 12/02/18 12/01/18 Rx Polyethylene Glycol 3350 [Miralax 17 gm PO BID PRN powd.pack 11/26/18 12/02/18 12/01/18 Rx 3350] Sevelamer Carbonate [Renvela] 2,400 mg PO AC tablet 11/26/18 12/02/18 12/01/18 Rx oxyCODONE /ACETAMINOPHEN [Percocet 1 tab PO Q6H PRN tablet 11/26/18 12/02/18 12/01/18 Rx 5/325 mg] Active Medications: Generic Name Dose Route Start Last Admin Trade Name Freq PRN Reason Stop Dose Admin Acetaminophen 650 mg 12/01/18 11:36 12/04/18 13:21 Tylenol PO 650 mg Q6H PRN Administration Non Cardiac Pain or Temp>100.5 Bisacodyl 10 mg 12/01/18 11:36 12/07/18 23:10 Dulcolax [place] 10 mg QDAY PRN Administration Constipation Bisacodyl 10 mg 12/03/18 16:00 12/08/18 08:32 Dulcolax PO 12/09/18 08:01 Not Given QDAY ISABELLA Epoetin Jeramy 10,000 unit 12/03/18 12:00 12/08/18 15:53 Procrit IV 10,000 unit TUTHSA ISABELLA Administration Cefazolin Sodium 1 gm in 50 mls @ 100 mls/hr 12/02/18 18:00 12/08/18 17:58 Ancef/Ns 1 Gm/50 Ml IV 12/27/18 18:29 100 mls/hr QPM ISABELLA Administration Protocol Sodium Chloride 100 mls @ 999 mls/hr 12/02/18 09:33 Nacl 0.9% IV SISSY PRN Hypotension Metoprolol Tartrate 100 mg 12/08/18 10:00 12/08/18 12:21 Lopressor PO Not Given BID ISABELLA Ondansetron HCl 4 mg 12/01/18 11:36 12/08/18 05:29 Zofran Odt PO 4 mg Q8H PRN Administration Nausea And Vomiting Oxycodone/Acetaminophen 1 tab 12/01/18 11:37 12/08/18 17:57 Percocet 5/325 PO 1 tab Q6H PRN Administration Pain, Moderate (4-6) Polyethylene Glycol 17 gm 12/02/18 08:00 12/08/18 08:33 Miralax 3350 PO Not Given QDAY ISABELLA Sevelamer Carbonate 2,400 mg 12/01/18 18:30 12/08/18 17:58 Renvela PO 2,400 mg AC ISABELLA Administration Sodium Chloride 10 ml 12/01/18 11:37 Sodium Chloride Flush Syringe 10 Ml IV PRN PRN LINE FLUSH Sorbitol 30 ml 12/07/18 11:00 12/07/18 21:14 Sorbitol 70% PO 30 ml PRN PRN Administration Constipation
--- NOTE | 2018-12-08 23:21 | XRay Report ---
ABDOMEN 1 VIEW(S) INDICATION / CLINICAL INFORMATION: abdominal discomfort. Constipation. COMPARISON: None available. FINDINGS: TUBES / LINES: None. BOWEL GAS PATTERN: No significant abnormality. FREE AIR / EXTRALUMINAL GAS: None seen. ADDITIONAL FINDINGS: No significant additional findings. IMPRESSION: Mild stool burden identified throughout much the colon. No small or large bowel obstruction. Signer Name: Akash Elizalde MD Signed: 12/08/2018 11:16 PM Workstation Name: [id number]
--- NOTE | 2018-12-09 07:25 | Hem/Onc Progress Note ---
Assessment and Plan 1. Based on CT finding, it is septic emboli and not a thrombotic event. Anticoagulation is less likely to be helpful. 2. Anemia of chronic kidney disease, may have a role. This also can be multifactorial. We will follow 3. History of leukocytosis. 4. History of high PTH. 5. End-stage renal disease, on dialysis. 6. History of fever. 7. Fever issues. 8. Antibiotic and physical Therapy. 9. History of hypertension. 10. Pt has Permacath for dialysis issues. I will follow the patient during the inpatient stay and then in the clinic setting. Abx for now b12 - folate - iron ferritin WNL seen by ID ESRD pts get epo and iv iron with HD /p PRBC - hb 7.6 - Patient Problems (1) Septic embolism Current Visit: Yes Status: Acute Subjective Date of service: 12/09/18 Principal diagnosis: anemia Interval history: pt confused as per RN Objective - Exam Narrative Exam: Pain - none General appearance - awake Performance status limited self care Eyes - no icterus ENT - no bleeding LNs cervical not palpable Neck - no LN Respiratory Normal Breath sounds - CTA anteriorly CVS S1 S2 + Extremities no calf tenderness General GI Soft Rectal deferred male - deferred Skin warm Musculoskeletal moving extremitites Neurologically awake - Constitutional Vitals: Last Vital Signs Temp 98.8 F 12/09/18 04:15 Pulse 73 12/09/18 04:15 Resp 18 12/09/18 04:15 BP 152/64 12/09/18 04:15 Pulse Ox 98 12/09/18 04:15 - Labs Lab Results: Laboratory Results - last 24 hr 12/08/18 09:12 Blood Type O POSITIVE Antibody Screen Negative Crossmatch See Detail Medications & Allergies - Medications Allergies/Adverse Reactions: Allergies No Known Allergies Allergy (Verified 08/27/18 16:19) Home Medications: Home Medications Medication Instructions Recorded Confirmed Last Taken Type Acetaminophen [Acetaminophen 650 mg [place] Q4H PRN supp.rect 11/26/18 12/02/18 12/01/18 Rx SUPPOS] Docusate Sodium [Colace CAP] 100 mg PO BID capsule 11/26/18 12/02/18 12/01/18 Rx Epoetin Jeramy 10,000 Unit [Procrit] 10,000 unit IV TuThSa vial 11/26/18 12/02/18 12/01/18 Rx Polyethylene Glycol 3350 [Miralax 17 gm PO BID PRN powd.pack 11/26/18 12/02/18 12/01/18 Rx 3350] Sevelamer Carbonate [Renvela] 2,400 mg PO AC tablet 11/26/18 12/02/18 12/01/18 Rx oxyCODONE /ACETAMINOPHEN [Percocet 1 tab PO Q6H PRN tablet 11/26/18 12/02/18 12/01/18 Rx 5/325 mg] Active Medications: Generic Name Dose Route Start Last Admin Trade Name Freq PRN Reason Stop Dose Admin Acetaminophen 650 mg 12/01/18 11:36 12/04/18 13:21 Tylenol PO 650 mg Q6H PRN Administration Non Cardiac Pain or Temp>100.5 Bisacodyl 10 mg 12/01/18 11:36 12/07/18 23:10 Dulcolax [place] 10 mg QDAY PRN Administration Constipation Bisacodyl 10 mg 12/03/18 16:00 12/08/18 08:32 Dulcolax PO 12/09/18 08:01 Not Given QDAY ISABELLA Epoetin Jeramy 10,000 unit 12/03/18 12:00 12/08/18 15:53 Procrit IV 10,000 unit TUTHSA ISABELLA Administration Cefazolin Sodium 1 gm in 50 mls @ 100 mls/hr 12/02/18 18:00 12/08/18 17:58 Ancef/Ns 1 Gm/50 Ml IV 12/27/18 18:29 100 mls/hr QPM ISABELLA Administration Protocol Sodium Chloride 100 mls @ 999 mls/hr 12/02/18 09:33 Nacl 0.9% IV SISSY PRN Hypotension Metoprolol Tartrate 100 mg 12/08/18 10:00 12/08/18 21:11 Lopressor PO 100 mg BID ISABELLA Administration Ondansetron HCl 4 mg 12/01/18 11:36 12/08/18 05:29 Zofran Odt PO 4 mg Q8H PRN Administration Nausea And Vomiting Oxycodone/Acetaminophen 1 tab 12/01/18 11:37 12/08/18 17:57 Percocet 5/325 PO 1 tab Q6H PRN Administration Pain, Moderate (4-6) Polyethylene Glycol 17 gm 12/02/18 08:00 12/08/18 08:33 Miralax 3350 PO Not Given QDAY ISABELLA Sevelamer Carbonate 2,400 mg 12/01/18 18:30 12/08/18 17:58 Renvela PO 2,400 mg AC ISABELLA Administration Sodium Chloride 10 ml 12/01/18 11:37 Sodium Chloride Flush Syringe 10 Ml IV PRN PRN LINE FLUSH Sorbitol 30 ml 12/07/18 11:00 12/07/18 21:14 Sorbitol 70% PO 30 ml PRN PRN Administration Constipation
[2018-12-09 07:41] LABS: Hematocrit 22.6 % (35.5-45.6); Hemoglobin 7.6 gm/dl (11.8-15.2); Mean Corpuscular HGB Conc 34 % (32-34); Mean Corpuscular Volume 83 fl (84-94); Platelet Count 284 K/mm3 (140-440); Red Blood Count 2.71 M/mm3 (3.65-5.03)
[2018-12-09 08:05] LABS: Calcium 8.6 mg/dL (8.4-10.2)
--- NOTE | 2018-12-09 10:37 | Progress Note ---
Assessment and Plan Observe response to increased lopressor dosage. S/p PRBC tx yesterday, H/H remain low today. Pt may benefit from systemic AC in regards to atrial fibrillation. However, will not initiate at this time due to anemia and has h/o thrombocytopenia. The patient has been seen in conjunction with Dr. Oliveira who agrees with the assessment and plan of care. - Patient Problems (1) Atrial fibrillation with RVR Current Visit: Yes Status: Acute (2) Sepsis Current Visit: Yes Status: Acute Qualifiers: Sepsis type: methicillin susceptible Staphylococcus aureus (3) MSSA bacteremia Current Visit: Yes Status: Acute (4) Pneumonia Current Visit: Yes Status: Acute Qualifiers: Pneumonia type: due to unspecified organism Laterality: unspecified lat erality Lung location: unspecified part of lung Qualified Code(s): J18.9 - Pneumonia, unspecified organism (5) Septic embolism Current Visit: Yes Status: Acute (6) Anemia Current Visit: Yes Status: Acute (7) ESRD (end stage renal disease) Current Visit: Yes Status: Chronic (8) Hyperparathyroidism Current Visit: Yes Status: Chronic Subjective Date of service: 12/09/18 Principal diagnosis: anemia Interval history: pt resting in bed, no current cardiac complaints. In AFib on tele with HR 70s - 100s overnight. Objective Last Vital Signs Temp 98.2 F 12/09/18 07:53 Pulse 77 12/09/18 07:53 Resp 18 12/09/18 07:53 BP 163/57 12/09/18 07:53 Pulse Ox 99 12/09/18 07:53 - Physical Examination General: No Apparent Distress HEENT: Positive: PERRL, Normocephaly, Mucus Membranes Moist Neck: Positive: neck supple, trachea midline Cardiac: Positive: irregularly irregular, S1/S2 Lungs: Positive: Decreased Breath Sounds Neuro: Positive: Grossly Intact Abdomen: Negative: Tender Skin: Negative: Rash Musculoskeletal: other (knee pain) Extremities: Absent: edema - Labs and Meds CBC 12/09/18 Range/Units 07:24 WBC 8.7 (4.5-11.0) K/mm3 RBC 2.71 L (3.65-5.03) M/mm3 Hgb 7.6 L (11.8-15.2) gm/dl Hct 22.6 L (35.5-45.6) % Plt Count 284 (140-440) K/mm3 Comprehensive Metabolic Panel 12/09/18 Range/Units 07:24 Sodium 134 L (137-145) mmol/L Potassium 3.6 (3.6-5.0) mmol/L Chloride 91.7 L (98-107) mmol/L Carbon Dioxide 26 (22-30) mmol/L BUN 18 (9-20) mg/dL Creatinine 4.6 H (0.8-1.5) mg/dL Glucose 81 (75-100) mg/dL Calcium 8.6 (8.4-10.2) mg/dL - Imaging and Cardiology EKG: report reviewed, image reviewed Echo: report reviewed (TTE done 11/15/2018 showed EF 45-50%, RV mildly dilated, catheter in RA, trace MR, mild TR, trivial pericardial effusion - pt was noted to be in atrial fibrillation at the time of this echo, cardiology was not consulted.) - Telemetry EKG Rhythm: Atrial Fibrillation - Allied health notes Allied health notes reviewed: nursing
[2018-12-09] MEDS: RENVELA PO SCH ×3 (12:08→18:26)
[2018-12-09] MEDS: PERCOCET 5/325 PO PRN ×2 (12:08→18:45)
[2018-12-09] MEDS: LOPRESSOR PO SCH ×2 (12:08→21:11)
[2018-12-09] MEDS: MIRALAX 3350 PO SCH (12:09)
[2018-12-09] MEDS: DULCOLAX PO SCH (12:09)
[2018-12-09] MEDS: PROCRIT IV SCH (12:10)
--- NOTE | 2018-12-09 17:39 | Progress Note ---
Assessment and Plan - Patient Problems (1) Hypertensive chronic kidney disease with stage 5 chronic kidney disease or end stage renal disease Current Visit: Yes Status: Acute Plan to address problem: Follow-up blood pressure on current medications (2) Altered mental status Current Visit: No Status: Acute Plan to address problem: Mental status has improved back to normal. Patient with severe deconditioning. Continue physical therapy (3) Anemia in CKD (chronic kidney disease) Current Visit: No Status: Acute Qualifiers: Chronic kidney disease stage: stage 5, not on chronic dialysis Qualified Code(s): N18.5 - Chronic kidney disease, stage 5; D63.1 - Anemia in chronic kidney disease Plan to address problem: Continue erythropoietin on dialysis. Follow-up hemoglobin (4) Sepsis due to infected central venous catheter Current Visit: No Status: Acute Plan to address problem: MSSA bacteremia line related. Status post removal of permacath and new permacath placement. Repeat blood cultures negative. Continue antibiotics per infectious disease (5) ESRD (end stage renal disease) Current Visit: Yes Status: Chronic Plan to address problem: Hemodialysis on a Friday, and Friday schedule. (6) Pneumonia Current Visit: Yes Status: Acute Qualifiers: Pneumonia type: due to unspecified organism Laterality: unspecified laterality Lung location: unspecified part of lung Qualified Code(s): J18.9 - Pneumonia, unspecified organism Plan to address problem: h/o MSSA bactermia in the setting of infected RIJ Permcath, s/p removal with repeat cultures x 2 sets negative, s/p new permcath placement. Cont ABXs as per ID recommendations. CT chest/abdomen indicating evidence of septic emboli. TTE/SAMARIA were unremarkable for vegetations (7) Constipation Current Visit: Yes Status: Acute Plan to address problem: Continue sorbitol (8) Joint pain Current Visit: Yes Status: Acute Plan to address problem: X-rays shows degenerative joint disease with joint effusions. Uric acid is normal. Consider orthopedic consult ?arthrocentesis Subjective Date of service: 12/09/18 Principal diagnosis: anemia Interval history: Patient seen lying in bed. at the bedside. He feels better today. He had physical therapy. Still complains of pain in the right knee and right-sided joints.. Objective - Exam Narrative Exam: Frail elderly -[place] male lying in bed in no acute distress HEENT: NCAT, pink oral mucous membrane Neck: Supple, no venous distention CVS: S1S2 RRR with no murmur, rub or gallop Chest: Clear to auscultation Abdomen: Protuberant, soft, suprapubic distention, nontender, no organomegaly, bowel sounds are present Extremities: No edema Neuro: Awake, alert no focal deficits, decreased muscle power - Vital Signs Vital signs: Vital Signs - 12hr 12/09/18 12/09/18 07:53 12:34 Temperature 98.2 F 97.9 F Pulse Rate 77 134 H Respiratory 18 20 Rate Blood Pressure 163/57 139/84 O2 Sat by Pulse 99 96 Oximetry - Lab 12/09/18 07:24 12/09/18 07:24 Most recent lab results Calcium 8.6 mg/dL (8.4-10.2) 12/09/18 07:24 Phosphorus 5.90 mg/dL (2.5-4.5) H 12/03/18 06:14 Medications & Allergies - Medications Allergies/Adverse Reactions: Allergies No Known Allergies Allergy (Verified 08/27/18 16:19) Home Medications: Home Medications Medication Instructions Recorded Confirmed Last Taken Type Acetaminophen [Acetaminophen 650 mg [place] Q4H PRN supp.rect 11/26/18 12/02/18 12/01/18 Rx SUPPOS] Docusate Sodium [Colace CAP] 100 mg PO BID capsule 11/26/18 12/02/18 12/01/18 Rx Epoetin Jeramy 10,000 Unit [Procrit] 10,000 unit IV TuThSa vial 11/26/18 12/02/18 12/01/18 Rx Polyethylene Glycol 3350 [Miralax 17 gm PO BID PRN powd.pack 11/26/18 12/02/18 12/01/18 Rx 3350] Sevelamer Carbonate [Renvela] 2,400 mg PO AC tablet 11/26/18 12/02/18 12/01/18 Rx oxyCODONE /ACETAMINOPHEN [Percocet 1 tab PO Q6H PRN tablet 11/26/18 12/02/18 12/01/18 Rx 5/325 mg] Active Medications: Generic Name Dose Route Start Last Admin Trade Name Freq PRN Reason Stop Dose Admin Acetaminophen 650 mg 12/01/18 11:36 12/04/18 13:21 Tylenol PO 650 mg Q6H PRN Administration Non Cardiac Pain or Temp>100.5 Bisacodyl 10 mg 12/01/18 11:36 12/07/18 23:10 Dulcolax [place] 10 mg QDAY PRN Administration Constipation Epoetin Jeramy 10,000 unit 12/03/18 12:00 12/09/18 12:10 Procrit IV Not Given TUTHSA [facility] Cefazolin Sodium 1 gm in 50 mls @ 100 mls/hr 12/02/18 18:00 12/08/18 17:58 Ancef/Ns 1 Gm/50 Ml IV 12/27/18 18:29 100 mls/hr QPM ISABELLA Administration Protocol Sodium Chloride 100 mls @ 999 mls/hr 12/02/18 09:33 Nacl 0.9% IV SISSY PRN Hypotension Metoprolol Tartrate 100 mg 12/08/18 10:00 12/09/18 12:08 Lopressor PO 100 mg BID ISABELLA Administration Ondansetron HCl 4 mg 12/01/18 11:36 12/08/18 05:29 Zofran Odt PO 4 mg Q8H PRN Administration Nausea And Vomiting Oxycodone/Acetaminophen 1 tab 12/01/18 11:37 12/09/18 12:08 Percocet 5/325 PO 1 tab Q6H PRN Administration Pain, Moderate (4-6) Polyethylene Glycol 17 gm 12/02/18 08:00 12/09/18 12:09 Miralax 3350 PO Not Given QDAY [facility] Sevelamer Carbonate 2,400 mg 12/01/18 18:30 12/09/18 12:11 Renvela PO Not Given AC ISABELLA Sodium Chloride 10 ml 12/01/18 11:37 Sodium Chloride Flush Syringe 10 Ml IV PRN PRN LINE FLUSH Sorbitol 30 ml 12/07/18 11:00 12/07/18 21:14 Sorbitol 70% PO 30 ml PRN PRN Administration Constipation
--- NOTE | 2018-12-09 17:47 | Progress Note ---
Subjective Date of service: 12/09/18 Principal diagnosis: Debility, weakness, sepsis Interval history: 73-year-old male presented to the ER on November 11 with shortness of breath. He was noted to be febrile. Chest x-ray showed bilateral pneumonia and he was started on cefepime. He was noted to have purulent drainage from his dialysis catheter. It was removed and replaced. He developed altered mental status, MRI was negative. Infectious disease was consulted and started the patient on cefazolin which will be continued until 12/27/2018. His leukocytosis improved however he continued to spike occasional fevers even on antibiotics. Recommendation was made to obtain CT chest abdomen and pelvis which showed septic emboli in the bilateral lungs. SAMARIA was performed looking for cardiac vegetations but none were found. He remains fairly weak and will need continued close monitoring for antibiotic therapy, fevers and leukocytosis, end-stage renal disease and other possible worsening of condition. Patient is participating in therapy and making slow progress. Taking rest breaks as needed. He is having issues with rectal pain and is having difficulty participating with some of the therapeutic exercises. Patient is tolerating metoprolol for rate control, is on telemetry per cardiology. Blood cultures drawn by ID over the weekend with no growth. Continues on antibiotics. Leukocytosis normalized at 8.7 today. Intermittent episodes of fever, none currently. +BM. Patient is still having issues with what he calls constipation even though is having bowel movements. Had a prolonged discussion with him and his concerning these episodes of rectal spasms. Patient states that at times when he is defecating he will get results but then he feels like there is more coming followed by a rectal spasm in the nothing else comes out. Notes that there tends to be a fullness in his rectum. He also has a spasms when he has not defecating and just sitting or lying in bed. This is a new issue for him since being hospitalized and he did not have decision before he did have a colonoscopy approximate 4 years ago at [facility] and stated that he had polyps and was told by the physician to eat a high-fiber diet which she accomplishes by using a powdered fiber supplement. He also underwent hemorrhoid resection in the past and stated that it was a bad procedure that had to be repeated. He currently denies any blood with bowel movements. Based on his symptoms this could be an internal hemorrhoid that is causing pain and spasm of the rectal vault. We'll attempt to use a Preparation H suppository and have asked nursing to give that to him tonight to see if this allows relief. During our conversation we also talked about possibility for discharge due to his decreased participation and decreased improvement. Hopefully tomorrow if the suppository alleviates the rectal spasms we will be able to have better participation and improvement in his abilities and will be able to continue therapy with him. If he continues to not progress we may need to look at a subacute rehabilitation placement for him. He and the understand this and understand that he has to participate in order to remain. Hemoglobin improved after transfusion. Pain in RLE continues, intermittent. Denies palpitations, chest pain, dyspnea, cough, N/V. Tolerating dialysis well. All records, vitals, labs and medications were reviewed. No other issues per patient, nursing or therapy. Objective - Exam Narrative Exam: MUSCULOSKELETAL SPECIALTY EXAM CONSTITUTIONAL: Well developed, well nourished, appropriately groomed EENT: EOMI. Hearing intact to soft voice RESPIRATORY: Clear to auscultation bilaterally, no increased work of breathing, on O2 NC 2L CARDIOVASCULAR: RRR, no edema. All extremities warm. GI: + bowel sounds, soft, NTTP, distended. INTEGUMENTARY: Normal, no lesion, rash, masses or bruising noted in extremities. MUSCULOSKELETAL: Effusions at the bilateral wrists noted. No noted effusions on visual exam at the knees. Slight arthritic changes also noted at wrists. There is some tenderness to range of motion of the wrist but no discrete tenderness to palpation as I would expect with a gout exacerbation. Slight tenderness to palpation at right hip. Othertwise, BUE and BLE normal without defect, crepitus, subluxation or TTP. BUE 4-/5, reduced ROM, with normal tone. BLE 4-/5 reduced ROM, with normal tone. NEURO: CN 2-12 grossly intact. Sensation intact in all extremities. Coordination slightly impaired in BUE. No tremor noted in 4 extremities. POSTURE and GAIT: Sitting posture impaired. Balance decreased. Gait slowed with rolling walker. PSYCH: Alert, oriented x3, affect appears flattened. Insight appears impaired at times. - Constitutional Vitals: Vital Signs - 12hr 12/09/18 12/09/18 12/09/18 07:53 12:34 17:20 Temperature 36.8 C 36.6 C 37.4 C Pulse Rate 77 134 H 74 Respiratory 18 20 18 Rate Blood Pressure 163/57 139/84 144/72 O2 Sat by Pulse 99 96 100 Oximetry - Allied health notes Allied health notes reviewed: nursing, PT, OT FIMS assessment as documented by PT/OT/ST: Social interaction/Memory/Problem solving Social Interaction FIM Score 3. Moderate Assistance (Interacts appropriately 50-74%.) Memory FIM Score 4. Minimal Assistance (Recognizes and remembers 75-90%.) Problem Solving FIM Score 3. Moderate Assistance (Solves routine problems 50-74%.) Transfers Mode of Locomotion: Wheelchair Bed/Chair/Wheelchair Transfers 3. Moderate Assistance (Patient = 50% or more. FIM Score Some lifting.) Locomotion- walk/wheelchair Most Frequent Mode of Wheelchair Locomotion: Ambulation Distance 15 Walking FIM Score 1. Total Assistance (Pt. < 25%, 2 or more person assist, or <50 ft.) Wheelchair Propulsion Distance 150 Wheelchair FIM Score 5. Supervision (Minimum 150 ft. supv./cues or 50 ft. independently.) Dressing-lower body Patient retrieves clothing No items: Lower Body Dressing FIM Score 2. Maximal Assistance (Patient = 25% or more) - Labs CBC & Chem 7: 12/09/18 07:24 12/09/18 07:24 Labs: Laboratory Results - last 72 hr 12/06/18 12/07/18 12/07/18 17:40 12:41 12:41 WBC 12.4 H RBC 2.55 L Hgb 6.9 L Hct 21.5 L MCV 84 MCH 27 L MCHC 32 RDW 16.6 H Plt Count 332 Sodium 130 L Potassium 4.1 Chloride 89.2 L Carbon Dioxide 26 Anion Gap 19 BUN 36 H Creatinine 6.7 H Estimated GFR 10 BUN/Creatinine Ratio 5 Glucose 102 H Uric Acid 5.1 Calcium 8.8 Blood Type Antibody Screen Crossmatch 12/08/18 12/09/18 12/09/18 09:12 07:24 07:24 WBC 8.7 RBC 2.71 L Hgb 7.6 L Hct 22.6 L MCV 83 L MCH 28 MCHC 34 RDW 17.0 H Plt Count 284 Sodium 134 L Potassium 3.6 Chloride 91.7 L Carbon Dioxide 26 Anion Gap 20 BUN 18 Creatinine 4.6 H Estimated GFR 15 BUN/Creatinine Ratio 4 Glucose 81 Uric Acid Calcium 8.6 Blood Type O POSITIVE Antibody Screen Negative Crossmatch See Detail Assessment and Plan New onset atrial fibrillation: On rate control and telemetry per cardiology. Appreciate their assistance. Defer anticoagulation at this point due to anemia. PNA and Sepsis (MSSA) with persistent fevers on abx: cont cefazolin until 12/27/18. Monitor for any signs of worsening pneumonia and are leukocytosis. Expect to continue seeing the intermittent fevers and will treat with Tylenol as needed. Patient does have bilateral pulmonary septic emboli. SAMARIA did not show vegetations. Infectious disease also monitoring. Blood cultures pending ESRD on HD: Continue hemodialysis per nephrology and renally dose medications including antibiotics. Hypertension: Continue medications, adjust as needed for normotension Anemia: Continue to monitor hemoglobin. Continue erythropoietin. Transfuse as needed. Improved to 7.6 after PRBC Thyroid nodule seen on CT: We'll schedule follow-up. Z73.6 ADL dysfunction: OT will work on improving ability to perform ADLs (including assistive devices) to increase independence and decrease caregiver burden and improve functional transfers and mobility training. R26.2 Difficulty walking: PT will work on gait training and proper use of assistive devices and advance as appropriate to use of stairs and outside ambulation on uneven surfaces. R26.81 Unsteadiness on feet: PT will work on improving static and dynamic sitting and standing balance as well as proper use of assistive devices to decrease risk of falls. R26.89 Abnormality of gait: PT will work to improve safety and efficiency of gait through neuromotor training and gait training along with instruction on proper use of assistive devices. M62.81 Muscle weakness: PT & OT will work on strengthening exercises to improve functional strength including mixture of closed and open kinetic chain exercises. R53.81 Debility: PT & OT will work on improving overall functional status to improve participation with ADLs, mobility and social involvement. R53.83 Fatigue: PT & OT will work on improving endurance through aerobic exercises and therapeutic activity while monitoring patients tolerance for activity and vital signs as needed. K59.00 Constipation: Bisacodyl supp today. Dulcolax PO and miralax, sorbitol. DVT ppx: SCDs, Will start heparin once Hgb has improved Pain: Continue physical modalities in therapy and pain medications as needed to achieve functional pain control. Sleep: Monitor and address as needed. Bowel: Monitor and address as needed. Appetite: Monitor and address as needed. Discharge planning: Pending therapy progress and care plan meeting. Will continue discussion with therapy team, SW, patient and family. Restrictions/ Precautions: Falls WB status: FWB Functional Hx: ADLs: Independent Cognition: Independent Mobility: No AD Barriers to Discharge: Decreased mobility and ability to perform self care, balance deficits, weakness Estimated Length of Stay: 1418 days Discharge Destination: Home with family vs SNF
[2018-12-09] MEDS: ANCEF/NS 1 GM/50 ML 1 GM/50 ML BAG IV SCH (18:29)
[2018-12-09] MEDS ORDERED: HEMORRHOIDAL 0.25/3/85.5% PR PRN (18:33)
--- NOTE | 2018-12-10 07:16 | Hem/Onc Progress Note ---
Assessment and Plan 1. Based on CT finding, it is septic emboli and not a thrombotic event. Anticoagulation is less likely to be helpful. 2. Anemia of chronic kidney disease, may have a role. This also can be multifactorial. We will follow 3. History of leukocytosis. 4. History of high PTH. 5. End-stage renal disease, on dialysis. 6. History of fever. 7. Fever issues. 8. Antibiotic and physical Therapy. 9. History of hypertension. 10. Pt has Permacath for dialysis issues. I will follow the patient during the inpatient stay and then in the clinic setting. Abx as per ID b12 - folate - iron ferritin WNL seen by ID ESRD pts get epo and iv iron with HD 12/10 s/p PRBC - hb 7.6 - Patient Problems (1) Septic embolism Current Visit: Yes Status: Acute Subjective Date of service: 12/10/18 Principal diagnosis: anemia Interval history: d/w RN - no bleeding pt says doing better Objective - Exam Narrative Exam: Pain - none General appearance - awake Performance status limited self care Eyes - no icterus ENT - no bleeding LNs cervical not palpable Neck - no LN Respiratory Normal Breath sounds - CTA anteriorly CVS S1 S2 + Extremities no calf tenderness General GI Soft Rectal deferred male - deferred Skin warm Musculoskeletal moving extremitites Neurologically awake - Constitutional Vitals: Last Vital Signs Temp 99.1 F 12/10/18 04:38 Pulse 67 12/10/18 04:38 Resp 20 12/10/18 04:38 BP 151/68 12/10/18 04:38 Pulse Ox 100 12/10/18 04:38 - Labs Lab Results: Laboratory Results - last 24 hr 12/09/18 12/09/18 07:24 07:24 WBC 8.7 RBC 2.71 L Hgb 7.6 L Hct 22.6 L MCV 83 L MCH 28 MCHC 34 RDW 17.0 H Plt Count 284 Sodium 134 L Potassium 3.6 Chloride 91.7 L Carbon Dioxide 26 Anion Gap 20 BUN 18 Creatinine 4.6 H Estimated GFR 15 BUN/Creatinine Ratio 4 Glucose 81 Calcium 8.6 Medications & Allergies - Medications Allergies/Adverse Reactions: Allergies No Known Allergies Allergy (Verified 08/27/18 16:19) Home Medications: Home Medications Medication Instructions Recorded Confirmed Last Taken Type Acetaminophen [Acetaminophen 650 mg NV Q4H PRN supp.rect 11/26/18 12/02/18 12/01/18 Rx SUPPOS] Docusate Sodium [Colace CAP] 100 mg PO BID capsule 11/26/18 12/02/18 12/01/18 Rx Epoetin Jeramy 10,000 Unit [Procrit] 10,000 unit IV TuThSa vial 11/26/18 12/02/18 12/01/18 Rx Polyethylene Glycol 3350 [Miralax 17 gm PO BID PRN powd.pack 11/26/18 12/02/18 12/01/18 Rx 3350] Sevelamer Carbonate [Renvela] 2,400 mg PO AC tablet 11/26/18 12/02/18 12/01/18 Rx oxyCODONE /ACETAMINOPHEN [Percocet 1 tab PO Q6H PRN tablet 11/26/18 12/02/18 12/01/18 Rx 5/325 mg] Active Medications: Generic Name Dose Route Start Last Admin Trade Name Freq PRN Reason Stop Dose Admin Acetaminophen 650 mg 12/01/18 11:36 12/04/18 13:21 Tylenol PO 650 mg Q6H PRN Administration Non Cardiac Pain or Temp>100.5 Bisacodyl 10 mg 12/01/18 11:36 12/07/18 23:10 Dulcolax NV 10 mg QDAY PRN Administration Constipation Epoetin Jeramy 10,000 unit 12/03/18 12:00 12/09/18 12:10 Procrit IV Not Given [facility] Cefazolin Sodium 1 gm in 50 mls @ 100 mls/hr 12/02/18 18:00 12/09/18 18:29 Ancef/Ns 1 Gm/50 Ml IV 12/27/18 18:29 100 mls/hr QPM ISABELLA Administration Protocol Sodium Chloride 100 mls @ 999 mls/hr 12/02/18 09:33 Nacl 0.9% IV SISSY PRN Hypotension Metoprolol Tartrate 100 mg 12/08/18 10:00 12/09/18 21:11 Lopressor PO 100 mg BID ISABELLA Administration Ondansetron HCl 4 mg 12/01/18 11:36 12/08/18 05:29 Zofran Odt PO 4 mg Q8H PRN Administration Nausea And Vomiting Oxycodone/Acetaminophen 1 tab 12/01/18 11:37 12/09/18 18:45 Percocet 5/325 PO 1 tab Q6H PRN Administration Pain, Moderate (4-6) Phenyleph/Shark Oil/[place] Butter 1 each 12/09/18 18:33 Hemorrhoidal 0.25/3/85.5% NV Q6H PRN Hemorrhoids Polyethylene Glycol 17 gm 12/02/18 08:00 12/09/18 12:09 Miralax 3350 PO Not Given QDAY ISABELLA Sevelamer Carbonate 2,400 mg 12/01/18 18:30 12/09/18 18:26 Renvela PO Not Given AC ISABELLA Sodium Chloride 10 ml 12/01/18 11:37 Sodium Chloride Flush Syringe 10 Ml IV PRN PRN LINE FLUSH Sorbitol 30 ml 12/07/18 11:00 12/07/18 21:14 Sorbitol 70% PO 30 ml PRN PRN Administration Constipation
[2018-12-10] MEDS: RENVELA PO SCH ×4 (09:44→18:27)
[2018-12-10] MEDS: NORVASC PO SCH (09:44)
[2018-12-10] MEDS: MIRALAX 3350 PO SCH (09:44)
[2018-12-10] MEDS: LOPRESSOR PO SCH ×2 (09:44→21:51)
--- NOTE | 2018-12-10 10:31 | Progress Note ---
Assessment and Plan - Patient Problems (1) Hypertensive chronic kidney disease with stage 5 chronic kidney disease or end stage renal disease Current Visit: Yes Status: Acute Plan to address problem: Follow-up blood pressure on current medications (2) Altered mental status Current Visit: No Status: Acute Plan to address problem: Mental status has improved back to normal. Patient with severe deconditioning. Continue physical therapy (3) Anemia in CKD (chronic kidney disease) Current Visit: No Status: Acute Qualifiers: Chronic kidney disease stage: stage 5, not on chronic dialysis Qualified Code(s): N18.5 - Chronic kidney disease, stage 5; D63.1 - Anemia in chronic kidney disease Plan to address problem: Continue erythropoietin on dialysis. Follow-up hemoglobin (4) Sepsis due to infected central venous catheter Current Visit: No Status: Acute Plan to address problem: MSSA bacteremia line related. Status post removal of permacath and new permacath placement. Repeat blood cultures negative. Continue antibiotics per infectious disease (5) ESRD (end stage renal disease) Current Visit: Yes Status: Chronic Plan to address problem: Hemodialysis on a Friday, and Friday schedule. (6) Pneumonia Current Visit: Yes Status: Acute Qualifiers: Pneumonia type: due to unspecified organism Laterality: unspecified laterality Lung location: unspecified part of lung Qualified Code(s): J18.9 - Pneumonia, unspecified organism Plan to address problem: h/o MSSA bactermia in the setting of infected RIJ Permcath, s/p removal with repeat cultures x 2 sets negative, s/p new permcath placement. Cont ABXs as per ID recommendations. CT chest/abdomen indicating evidence of septic emboli. TTE/SAMARIA were unremarkable for vegetations (7) Constipation Current Visit: Yes Status: Acute Plan to address problem: Continue sorbitol (8) Joint pain Current Visit: Yes Status: Acute Plan to address problem: X-rays shows degenerative joint disease with joint effusions. Uric acid is normal. Consider orthopedic consult ?arthrocentesis Subjective Date of service: 12/10/18 Principal diagnosis: anemia Interval history: Patient seen lying in bed. No Family at the bedside. He feels better today. Still complains of pain in the right knee and right-sided joints.. Objective - Exam Narrative Exam: Frail elderly -[place] male lying in bed in no acute distress HEENT: NCAT, pink oral mucous membrane Neck: Supple, no venous distention CVS: S1S2 RRR with no murmur, rub or gallop Chest: Clear to auscultation Abdomen: Protuberant, soft, suprapubic distention, nontender, no organomegaly, bowel sounds are present Extremities: No edema Neuro: Awake, alert no focal deficits, decreased muscle power - Vital Signs Vital signs: Vital Signs - 12hr 12/10/18 12/10/18 04:38 07:28 Temperature 99.1 F 97.8 F Pulse Rate 67 70 Respiratory 20 18 Rate Blood Pressure 151/68 158/72 O2 Sat by Pulse 100 96 Oximetry - Lab 12/09/18 07:24 12/09/18 07:24 Most recent lab results Calcium 8.6 mg/dL (8.4-10.2) 12/09/18 07:24 Phosphorus 5.90 mg/dL (2.5-4.5) H 12/03/18 06:14 Medications & Allergies - Medications Allergies/Adverse Reactions: Allergies No Known Allergies Allergy (Verified 08/27/18 16:19) Home Medications: Home Medications Medication Instructions Recorded Confirmed Last Taken Type Acetaminophen [Acetaminophen 650 mg [place] Q4H PRN supp.rect 11/26/18 12/02/18 12/01/18 Rx SUPPOS] Docusate Sodium [Colace CAP] 100 mg PO BID capsule 11/26/18 12/02/18 12/01/18 Rx Epoetin Jeramy 10,000 Unit [Procrit] 10,000 unit IV TuThSa vial 11/26/18 12/02/18 12/01/18 Rx Polyethylene Glycol 3350 [Miralax 17 gm PO BID PRN powd.pack 11/26/18 12/02/18 12/01/18 Rx 3350] Sevelamer Carbonate [Renvela] 2,400 mg PO AC tablet 11/26/18 12/02/18 12/01/18 Rx oxyCODONE /ACETAMINOPHEN [Percocet 1 tab PO Q6H PRN tablet 11/26/18 12/02/18 12/01/18 Rx 5/325 mg] Active Medications: Generic Name Dose Route Start Last Admin Trade Name Freq PRN Reason Stop Dose Admin Acetaminophen 650 mg 12/01/18 11:36 12/04/18 13:21 Tylenol PO 650 mg Q6H PRN Administration Non Cardiac Pain or Temp>100.5 Amlodipine Besylate 5 mg 12/10/18 10:00 12/10/18 09:44 Norvasc PO 5 mg QDAY ISABELLA Administration Bisacodyl 10 mg 12/01/18 11:36 12/07/18 23:10 Dulcolax WI 10 mg QDAY PRN Administration Constipation Epoetin Jeramy 10,000 unit 12/03/18 12:00 12/09/18 12:10 Procrit IV Not Given [facility] Cefazolin Sodium 1 gm in 50 mls @ 100 mls/hr 12/02/18 18:00 12/09/18 18:29 Ancef/Ns 1 Gm/50 Ml IV 12/27/18 18:29 100 mls/hr QPM ISABELLA Administration Protocol Sodium Chloride 100 mls @ 999 mls/hr 12/02/18 09:33 Nacl 0.9% IV SISSY PRN Hypotension Metoprolol Tartrate 100 mg 12/08/18 10:00 12/10/18 09:44 Lopressor PO 100 mg BID ISABELLA Administration Ondansetron HCl 4 mg 12/01/18 11:36 12/08/18 05:29 Zofran Odt PO 4 mg Q8H PRN Administration Nausea And Vomiting Oxycodone/Acetaminophen 1 tab 12/01/18 11:37 12/09/18 18:45 Percocet 5/325 PO 1 tab Q6H PRN Administration Pain, Moderate (4-6) Phenyleph/Shark Oil/[place] Butter 1 each 12/09/18 18:33 Hemorrhoidal 0.25/3/85.5% [place] Q6H PRN Hemorrhoids Polyethylene Glycol 17 gm 12/02/18 08:00 12/10/18 09:44 Miralax 3350 PO 17 gm QDAY ISABELLA Administration Sevelamer Carbonate 2,400 mg 12/01/18 18:30 12/10/18 09:44 Renvela PO 2,400 mg AC ISABELLA Administration Sodium Chloride 10 ml 12/01/18 11:37 Sodium Chloride Flush Syringe 10 Ml IV PRN PRN LINE FLUSH Sorbitol 30 ml 12/07/18 11:00 12/07/18 21:14 Sorbitol 70% PO 30 ml PRN PRN Administration Constipation
--- NOTE | 2018-12-10 10:42 | Progress Note ---
Assessment and Plan Pt in AFib with CVR. Optimize BPs - initiate norvasc. Pt may benefit from systemic AC in regards to atrial fibrillation. However, will not initiate at this time due to anemia and h/o thrombocytopenia. The patient has been seen in conjunction with Dr. Oliveira who agrees with the assessment and plan of care. - Patient Problems (1) Atrial fibrillation with RVR Current Visit: Yes Status: Acute (2) Sepsis Current Visit: Yes Status: Acute Qualifiers: Sepsis type: methicillin susceptible Staphylococcus aureus (3) MSSA bacteremia Current Visit: Yes Status: Acute (4) Pneumonia Current Visit: Yes Status: Acute Qualifiers: Pneumonia type: due to unspecified organism Laterality: unspecified laterality Lung location: unspecified part of lung Qualified Code(s): J18.9 - Pneumonia, unspecified organism (5) Septic embolism Current Visit: Yes Status: Acute (6) Anemia Current Visit: Yes Status: Acute (7) ESRD (end stage renal disease) Current Visit: Yes Status: Chronic (8) Hyperparathyroidism Current Visit: Yes Status: Chronic Subjective Date of service: 12/10/18 Principal diagnosis: anemia Interval history: pt exercising with physical therapy, no current cardiac complaints. In AFib on tele with HR 70s overnight. Objective Last Vital Signs Temp 97.8 F 12/10/18 07:28 Pulse 70 12/10/18 07:28 Resp 18 12/10/18 07:28 BP 158/72 12/10/18 07:28 Pulse Ox 96 12/10/18 07:28 - Physical Examination General: No Apparent Distress HEENT: Positive: PERRL, Normocephaly, Mucus Membranes Moist Neck: Positive: neck supple, trachea midline Cardiac: Positive: irregularly irregular, S1/S2 Lungs: Positive: Decreased Breath Sounds Neuro: Positive: Grossly Intact Abdomen: Negative: Tender Skin: Negative: Rash Musculoskeletal: other (knee pain) Extremities: Absent: edema - Imaging and Cardiology EKG: report reviewed, image reviewed Echo: report reviewed (TTE done 11/15/2018 showed EF 45-50%, RV mildly dilated, catheter in RA, trace MR, mild TR, trivial pericardial effusion - pt was noted to be in atrial fibrillation at the time of this echo, cardiology was not consulted.) - Allied health notes Allied health notes reviewed: nursing
--- NOTE | 2018-12-10 12:08 | Progress Note ---
Assessment and Plan 73 yo M PMHx HTN, ESRD on HD, hyperparathyroidism, OA admitted with vascular catheter infection. 1. MSSA bacteremia secondary to Vascular catheter infection: catheter removed. Repeat blood cultures from 11/15/2018 negative. Got new HD cath placed. TTE unremarkable for any vegetations. Intermittent fevers continues felt to be s eptic emboli or gouty attack. CT chest abdomen and pelvis shows bilateral pulmonary septic emboli, no abdominal abscess. SAMARIA no vegetations. 2. Persistent fever: ? from septic emboli or gouty attack. History of madelyn wrist gout. Recs: repeat blood culture XR right hip, madelyn wrists and madelyn knees Gouty attack per IMS continue Cefazolin IV for total 6 weeks of post HD ending 12/27/2018 Will follow. Sarah Kenyon MD [facility] M: [phone] O: [phone] F: [phone] Subjective Date of service: 12/10/18 Principal diagnosis: Debility, weakness, sepsis Interval history: Afebrile, no new issues. Objective - Exam Narrative Exam: General appearance: Alert in NAD Eyes: anicteric sclerae, moist conjunctivae; no lid-lag; PERRLA HENT: Atraumatic; oropharynx clear with moist mucous membranes and no mucosal ulcerations/no oral thrush; normal hard and soft palate. Lungs: CTA, with normal respiratory effort and no intercostal retractions CV: RRR Abdomen: Soft, non-tender; no masses or hepatosplenomegaly Extremities: +madelyn wrist edema and tenderness, madelyn knee edema and tenderness, +right hip passive pain Skin: No rash. Psych: no agitated. Neuro: alert and oriented x 2 - Constitutional Vitals: Vital Signs Temp Pulse Resp BP Pulse Ox 97.8 F 70 18 158/72 96 12/10/18 07:28 12/10/18 07:28 12/10/18 07:28 12/10/18 07:28 12/10/18 07:28 Temperature -Last 24 Hours Temperature 97.8 F Temperature 99.1 F Temperature 98.9 F Temperature 99.3 F Temperature 97.9 F - Labs CBC & Chem 7: 12/09/18 07:24 12/09/18 07:24
--- NOTE | 2018-12-10 13:42 | Progress Note ---
Subjective Date of service: 12/10/18 Principal diagnosis: Debility, weakness, sepsis Interval history: 73-year-old male presented to the ER on November 11 with shortness of breath. He was noted to be febrile. Chest x-ray showed bilateral pneumonia and he was started on cefepime. He was noted to have purulent drainage from his dialysis catheter. It was removed and replaced. He developed altered mental status, MRI was negative. Infectious disease was consulted and started the patient on cefazolin which will be continued until 12/27/2018. His leukocytosis improved however he continued to spike occasional fevers even on antibiotics. Recommendation was made to obtain CT chest abdomen and pelvis which showed septic emboli in the bilateral lungs. SAMARIA was performed looking for cardiac vegetations but none were found. He remains fairly weak and will need continued close monitoring for antibiotic therapy, fevers and leukocytosis, end-stage renal disease and other possible worsening of condition. Patient is participating in therapy and making slow progress. Taking rest breaks as needed. He is having issues with rectal pain and is having difficulty participating with some of the therapeutic exercises. Patient is tolerating metoprolol for rate control, is on telemetry per cardiology. Blood cultures drawn by ID over the weekend with no growth. Continues on antibiotics. Leukocytosis normalized at 8.7 today. Intermittent episodes of fever, none currently. Since starting on metoprolol for rate control, BP has increased. Cardiology is starting amlodipine. Appreciate assistance. Prep H suppository not given last night. Patient is still having spasms today. Have asked nursing to give the suppository as soon as possible in order to see if this improves the patient's symptoms. Discussed symptoms again with the patient reminding him that we had the discussion last night. He will need to follow up with GI as an outpatient at this point for repeat colonoscopy. Still denies any blood in the stool, having bowel movement but still has spasms that make him think he is having further bowel movements with no production. Due to the continued symptoms to the chance to again review his CT imaging that was performed just prior to admission on rehabilitation. Diverticulosis is seen without any evidence of diverticulitis. Previous KUB also reviewed which showed stool burden throughout the colon without signs of obstruction. +BM last night. Patient also stated today during therapy that he was having right leg pain again. States this is radiating from his back down to his ankle. However straight leg raise did not elicit any neuropathic findings that would be consistent with a radiculopathy. On further questioning with some difficulty the patient was able to tell me that it felt like a squeezing in his leg. No tenderness to palpation over the lower leg or the thigh, there was tenderness to palpation at the right hip and no significant tenderness to the low back. Denies palpitations, chest pain, cough, N/V. Tolerating dialysis well. Discussed in team conference today. Patient is making very slow progress and is having an issue with participation due to the rectal spasms. I would like to be able to continue therapy with him however at this point without being any goals we will go ahead and make a referral for subacute rehabilitation so that he can progress at a slower pace. We will look to PR once he is accepted. Patient will need a follow-up for his GI issues as an outpatient. All records, vitals, labs and medications were reviewed. No other issues per patient, nursing or therapy. Objective - Exam Narrative Exam: MUSCULOSKELETAL SPECIALTY EXAM CONSTITUTIONAL: Well developed, well nourished, appropriately groomed EENT: EOMI. Hearing intact to soft voice RESPIRATORY: Clear to auscultation bilaterally, no increased work of breathing, on O2 NC 2L CARDIOVASCULAR: RRR, no edema. All extremities warm. GI: + bowel sounds, soft, NTTP, distended. INTEGUMENTARY: Normal, no lesion, rash, masses or bruising noted in extremities. MUSCULOSKELETAL: Effusions at the bilateral wrists noted. No noted effusions on visual exam at the knees. Slight arthritic changes also noted at wrists. There is some tenderness to range of motion of the wrist but no discrete tenderness to palpation as I would expect with a gout exacerbation. Slight tenderness to palpation at right hip. Othertwise, BUE and BLE normal without defect, crepitus, subluxation or TTP. Mild/insignificant tenderness to palpation over lower back and SI joint area. Seated straight leg raise negative bilaterally. No tenderness to palpation R squeeze at the calf, Stefania signs negative. Bilateral hamstrings tight and some effort involved in order to get patient's legs to full extension. BUE 4-/5, reduced ROM, with normal tone. BLE 4-/5 reduced ROM, with normal tone. NEURO: CN 2-12 grossly intact. Sensation intact in all extremities. Coordination slightly impaired in BUE. No tremor noted in 4 extremities. POSTURE and GAIT: Sitting posture impaired. Balance decreased. Gait slowed with rolling walker. PSYCH: Alert, oriented x3, affect appears flattened. Insight appears impaired at times. - Constitutional Vitals: Vital Signs - 12hr 12/10/18 12/10/18 12/10/18 04:38 07:28 12:07 Temperature 37.3 C 36.6 C 36.9 C Pulse Rate 67 70 71 Respiratory 20 18 18 Rate Blood Pressure 151/68 158/72 150/66 O2 Sat by Pulse 100 96 100 Oximetry - Allied health notes Allied health notes reviewed: nursing, PT, OT FIMS assessment as documented by PT/OT/ST: Social interaction/Memory/Problem solving Social Interaction FIM Score 3. Moderate Assistance (Interacts appropriately 50-74%.) Memory FIM Score 4. Minimal Assistance (Recognizes and remembers 75-90%.) Problem Solving FIM Score 3. Moderate Assistance (Solves routine problems 50-74%.) Transfers Mode of Locomotion: Wheelchair Bed/Chair/Wheelchair Transfers 3. Moderate Assistance (Patient = 50% or more. FIM Score Some lifting.) Locomotion- walk/wheelchair Most Frequent Mode of Wheelchair Locomotion: Ambulation Distance 15 Walking FIM Score 1. Total Assistance (Pt. < 25%, 2 or more person assist, or <50 ft.) Wheelchair Propulsion Distance 150 Wheelchair FIM Score 5. Supervision (Minimum 150 ft. supv./cues or 50 ft. independently.) Dressing-lower body Patient retrieves clothing No items: Lower Body Dressing FIM Score 2. Maximal Assistance (Patient = 25% or more) - Labs CBC & Chem 7: 12/09/18 07:24 12/09/18 07:24 Labs: Laboratory Results - last 72 hr 12/07/18 12/08/18 12/09/18 12:41 09:12 07:24 WBC 8.7 RBC 2.71 L Hgb 7.6 L Hct 22.6 L MCV 83 L MCH 28 MCHC 34 RDW 17.0 H Plt Count 284 Sodium 130 L Potassium 4.1 Chloride 89.2 L Carbon Dioxide 26 Anion Gap 19 BUN 36 H Creatinine 6.7 H Estimated GFR 10 BUN/Creatinine Ratio 5 Glucose 102 H Calcium 8.8 Blood Type O POSITIVE Antibody Screen Negative Crossmatch See Detail 12/09/18 07:24 WBC RBC Hgb Hct MCV MCH MCHC RDW Plt Count Sodium 134 L Potassium 3.6 Chloride 91.7 L Carbon Dioxide 26 Anion Gap 20 BUN 18 Creatinine 4.6 H Estimated GFR 15 BUN/Creatinine Ratio 4 Glucose 81 Calcium 8.6 Blood Type Antibody Screen Crossmatch - Imaging and cardiology Abdominal x-ray: report reviewed, image reviewed CT scan - abdomen: report reviewed, image reviewed Assessment and Plan New onset atrial fibrillation: On rate control and telemetry per cardiology. Appreciate their assistance. Defer anticoagulation at this point due to anemia. PNA and Sepsis (MSSA) with persistent fevers on abx: cont cefazolin until 12/27/18. Monitor for any signs of worsening pneumonia and are leukocytosis. Expect to continue seeing the intermittent fevers and will treat with Tylenol as needed. Patient does have bilateral pulmonary septic emboli. SAMARIA did not show vegetations. Infectious disease also monitoring. Blood cultures pending ESRD on HD: Continue hemodialysis per nephrology and renally dose medications including antibiotics. Hypertension: Continue medications, adjust as needed for normotension. Amlodipine added by cardiology. Anemia: Continue to monitor hemoglobin. Continue erythropoietin. Transfuse as needed. Improved to 7.6 after PRBC Thyroid nodule seen on CT: Recommend follow-up. Z73.6 ADL dysfunction: OT will work on improving ability to perform ADLs (including assistive devices) to increase independence and decrease caregiver burden and improve functional transfers and mobility training. R26.2 Difficulty walking: PT will work on gait training and proper use of assistive devices and advance as appropriate to use of stairs and outside a mbulation on uneven surfaces. R26.81 Unsteadiness on feet: PT will work on improving static and dynamic sitting and standing balance as well as proper use of assistive devices to decrease risk of falls. R26.89 Abnormality of gait: PT will work to improve safety and efficiency of gait through neuromotor training and gait training along with instruction on proper use of assistive devices. M62.81 Muscle weakness: PT & OT will work on strengthening exercises to improve functional strength including mixture of closed and open kinetic chain exercises. R53.81 Debility: PT & OT will work on improving overall functional status to improve participation with ADLs, mobility and social involvement. R53.83 Fatigue: PT & OT will work on improving endurance through aerobic exercises and therapeutic activity while monitoring patients tolerance for activity and vital signs as needed. K59.00 Constipation: Bisacodyl supp today. Dulcolax PO and miralax, sorbitol. We'll schedule a few doses of sorbitol over the next few days and also check another KUB tonight. DVT ppx: SCDs, heparin Pain: Continue physical modalities in therapy and pain medications as needed to achieve functional pain control. Sleep: Monitor and address as needed. Bowel: Monitor and address as needed. Appetite: Monitor and address as needed. Discharge planning: Pending therapy progress and care plan meeting. Will continue discussion with therapy team, SW, patient and family. Restrictions/ Precautions: Falls WB status: FWB Functional Hx: ADLs: Independent Cognition: Independent Mobility: No AD Barriers to Discharge: Decreased mobility and ability to perform self care, balance deficits, weakness Estimated Length of Stay: 1418 days Discharge Destination: Home with family vs SNF
--- NOTE | 2018-12-10 14:28 | XRay Report ---
ABDOMEN 1 VIEW(S) INDICATION / CLINICAL INFORMATION: Abd pain, constipation. COMPARISON: None available. FINDINGS: TUBES / LINES: None. BOWEL GAS PATTERN: There is moderate stool in the ascending and descending colon. No evidence for bow el obstruction or pathologic calcifications. FREE AIR / EXTRALUMINAL GAS: None seen. ADDITIONAL FINDINGS: No significant additional findings. IMPRESSION: Mild fecal retention. Signer Name: Hemanth Matute Jr, MD Signed: 12/10/2018 2:23 PM Workstation Name: [id number]
[2018-12-10] MEDS: PROCRIT IV SCH (15:30)
[2018-12-10] MEDS ORDERED: NACL 0.9 (PRIMING MACHINE ONLY DIALYSIS) MC ONE (16:40)
[2018-12-10] MEDS: SORBITOL 70% PO SCH (18:26)
[2018-12-10] MEDS: PERCOCET 5/325 PO PRN (18:27)
[2018-12-10] MEDS: ANCEF/NS 1 GM/50 ML 1 GM/50 ML BAG IV SCH (18:27)
[2018-12-10] MEDS: HEPARIN SUB-Q SCH (21:51)
[2018-12-11] MEDS: PERCOCET 5/325 PO PRN ×3 (02:11→21:37)
[2018-12-11] MEDS: LOPRESSOR PO SCH ×3 (08:14→20:26)
[2018-12-11] MEDS: RENVELA PO SCH ×3 (08:14→16:55)
[2018-12-11] MEDS: MIRALAX 3350 PO SCH (08:14)
[2018-12-11] MEDS: NORVASC PO SCH (08:14)
[2018-12-11] MEDS: HEPARIN SUB-Q SCH ×3 (08:14→21:37)
[2018-12-11] MEDS: SORBITOL 70% PO SCH ×2 (08:15→12:43)
--- NOTE | 2018-12-11 08:52 | Hem/Onc Progress Note ---
Assessment and Plan 1. Based on CT finding, it is septic emboli and not a thrombotic event. Anticoagulation is less likely to be helpful. 2. Anemia of chronic kidney disease, may have a role. This also can be multifactorial. We will follow 3. History of leukocytosis. 4. History of high PTH. 5. End-stage renal disease, on dialysis. 6. History of fever. 7. Fever issues. 8. Antibiotic and physical Therapy. 9. History of hypertension. 10. Pt has Permacath for dialysis issues. I will follow the patient during the inpatient stay and then in the clinic setting. Abx as per ID b12 - folate - iron ferritin WNL seen by ID ESRD pts get epo and iv iron with HD 12/11 s/p PRBC - hb 7.6 joint pain - rehab following - Patient Problems (1) Septic embolism Current Visit: Yes Status: Acute Subjective Date of service: 12/11/18 Principal diagnosis: anemia Interval history: more awake - c/o hip knee discomfort Objective - Exam Narrative Exam: Pain - none General appearance - awake Performance status limited self care Eyes - no icterus ENT - no bleeding LNs cervical not palpable Neck - no LN Respiratory Normal Breath sounds - CTA anteriorly CVS S1 S2 + Extremities no calf tenderness General GI Soft Rectal deferred male - deferred Skin warm Musculoskeletal moving extremitites Neurologically awake - Constitutional Vitals: Last Vital Signs Temp 99.1 F 12/11/18 08:18 Pulse 75 12/11/18 08:18 Resp 20 12/11/18 08:18 BP 165/81 12/11/18 08:18 Pulse Ox 100 12/11/18 08:18 Medications & Allergies - Medications Allergies/Adverse Reactions: Allergies No Known Allergies Allergy (Verified 08/27/18 16:19) Home Medications: Home Medications Medication Instructions Recorded Confirmed Last Taken Type Acetaminophen [Acetaminophen 650 mg HI Q4H PRN supp.rect 11/26/18 12/02/18 12/01/18 Rx SUPPOS] Docusate Sodium [Colace CAP] 100 mg PO BID capsule 11/26/18 12/02/18 12/01/18 Rx Epoetin Jeramy 10,000 Unit [Procrit] 10,000 unit IV TuThSa vial 11/26/18 12/02/18 12/01/18 Rx Polyethylene Glycol 3350 [Miralax 17 gm PO BID PRN powd.pack 11/26/18 12/02/18 12/01/18 Rx 3350] Sevelamer Carbonate [Renvela] 2,400 mg PO AC tablet 11/26/18 12/02/18 12/01/18 Rx oxyCODONE /ACETAMINOPHEN [Percocet 1 tab PO Q6H PRN tablet 11/26/18 12/02/18 12/01/18 Rx 5/325 mg] Active Medications: Generic Name Dose Route Start Last Admin Trade Name Freq PRN Reason Stop Dose Admin Acetaminophen 650 mg 12/01/18 11:36 12/04/18 13:21 Tylenol PO 650 mg Q6H PRN Administration Non Cardiac Pain or Temp>100.5 Amlodipine Besylate 5 mg 12/10/18 10:00 12/11/18 08:14 Norvasc PO 5 mg QDAY ISABELLA Administration Bisacodyl 10 mg 12/01/18 11:36 12/07/18 23:10 Dulcolax HI 10 mg QDAY PRN Administration Constipation Epoetin Jeramy 10,000 unit 12/03/18 12:00 12/10/18 15:30 Procrit IV 10,000 unit TUTHSA ISABELLA Administration Heparin Sodium (Porcine) 5,000 unit 12/10/18 22:00 12/11/18 08:14 Heparin SUB-Q 5,000 unit Q12HR ISABELLA Administration Cefazolin Sodium 1 gm in 50 mls @ 100 mls/hr 12/02/18 18:00 12/10/18 18:27 Ancef/Ns 1 Gm/50 Ml IV 12/27/18 18:29 100 mls/hr QPM ISABELLA Administration Protocol Sodium Chloride 100 mls @ 999 mls/hr 12/02/18 09:33 Nacl 0.9% IV SISSY PRN Hypotension Metoprolol Tartrate 100 mg 12/08/18 10:00 12/11/18 08:14 Lopressor PO 100 mg BID ISABELLA Administration Ondansetron HCl 4 mg 12/01/18 11:36 12/08/18 05:29 Zofran Odt PO 4 mg Q8H PRN Administration Nausea And Vomiting Oxycodone/Acetaminophen 1 tab 12/01/18 11:37 12/11/18 08:18 Percocet 5/325 PO 1 tab Q6H PRN Administration Pain, Moderate (4-6) Phenyleph/Shark Oil/[place] Butter 1 each 12/09/18 18:33 12/10/18 12:49 Hemorrhoidal 0.25/3/85.5% HI 1 each Q6H PRN Administration Hemorrhoids Polyethylene Glycol 17 gm 12/02/18 08:00 12/11/18 08:14 Miralax 3350 PO 17 gm QDAY ISABELLA Administration Sevelamer Carbonate 2,400 mg 12/01/18 18:30 12/11/18 08:14 Renvela PO 2,400 mg AC ISABELLA Administration Sodium Chloride 10 ml 12/01/18 11:37 Sodium Chloride Flush Syringe 10 Ml IV PRN PRN LINE FLUSH Sorbitol 30 ml 12/07/18 11:00 12/07/18 21:14 Sorbitol 70% PO 30 ml PRN PRN Administration Constipation Sorbitol 30 ml 12/10/18 18:00 12/11/18 08:15 Sorbitol 70% PO 12/11/18 10:01 30 ml DAILY ISABELLA Administration
--- NOTE | 2018-12-11 10:44 | Progress Note ---
Assessment and Plan Optimize BPs - d/c norvasc and increase lopressor dosage with hold parameters. Pt may benefit from systemic AC in regards to atrial fibrillation. However, will not initiate at this time due to anemia and h/o thrombocytopenia. Will follow peripherally over the weekend. The patient has been seen in conjunction with Dr. Oliveira who agrees with the assessment and plan of care. - Patient Problems (1) Atrial fibrillation with RVR Current Visit: Yes Status: Acute (2) Sepsis Current Visit: Yes Status: Acute Qualifiers: Sepsis type: methicillin susceptible Staphylococcus aureus (3) MSSA bacteremia Current Visit: Yes Status: Acute (4) Pneumonia Current Visit: Yes Status: Acute Qualifiers: Pneumonia type: due to unspecified organism Laterality: unspecified laterality Lung location: unspecified part of lung Qualified Code(s): J18.9 - Pneumonia, unspecified organism (5) Septic embolism Current Visit: Yes Status: Acute (6) Anemia Current Visit: Yes Status: Acute (7) ESRD (end stage renal disease) Current Visit: Yes Status: Chronic (8) Hyperparathyroidism Current Visit: Yes Status: Chronic Subjective Date of service: 12/11/18 Principal diagnosis: Debility, weakness, sepsis Interval history: pt exercising with physical therapy, no current cardiac complaints. In SR. Objective Last Vital Signs Temp 99.1 F 12/11/18 08:18 Pulse 75 12/11/18 08:18 Resp 20 12/11/18 08:18 BP 165/81 12/11/18 08:18 Pulse Ox 100 12/11/18 08:18 - Physical Examination General: No Apparent Distress HEENT: Positive: PERRL, Normocephaly, Mucus Membranes Moist Neck: Positive: neck supple, trachea midline Cardiac: Positive: Reg Rate and Rhythm, S1/S2 Lungs: Positive: Decreased Breath Sounds Neuro: Positive: Grossly Intact Abdomen: Negative: Tender Skin: Negative: Rash Musculoskeletal: other (knee pain) Extremities: Absent: edema - Imaging and Cardiology EKG: report reviewed, image reviewed Echo: report reviewed (TTE done 11/15/2018 showed EF 45-50%, RV mildly dilated, catheter in RA, trace MR, mild TR, trivial pericardial effusion - pt was noted to be in atrial fibrillation at the time of this echo, cardiology was not consulted.) - Allied health notes Allied health notes reviewed: nursing
--- NOTE | 2018-12-11 11:02 | Progress Note ---
Subjective Date of service: 12/11/18 Principal diagnosis: Debility, weakness, sepsis Interval history: 73-year-old male presented to the ER on November 11 with shortness of breath. He was noted to be febrile. Chest x-ray showed bilateral pneumonia and he was started on cefepime. He was noted to have purulent drainage from his dialysis catheter. It was removed and replaced. He developed altered mental status, MRI was negative. Infectious disease was consulted and started the patient on cefazolin which will be continued until 12/27/2018. His leukocytosis improved however he continued to spike occasional fevers even on antibiotics. Recommendation was made to obtain CT chest abdomen and pelvis which showed septic emboli in the bilateral lungs. SAMARIA was performed looking for cardiac vegetations but none were found. He remains fairly weak and will need continued close monitoring for antibiotic therapy, fevers and leukocytosis, end-stage renal disease and other possible worsening of condition. Patient is participating in therapy and making slow progress. Taking rest breaks as needed. Due to lack of progress we have discussed with patient and the possibility of referring him out for snf facility placement which has been done. At this point we are awaiting acceptance and will need authorization by insurance prior to transfer. Patient is still having issues with rectal pain even though he is currently having daily bowel movements. He states pain is making it difficult for him to participate in any therapy sessions and at times will later and scream out in pain. We are attempting to use hemorrhoid suppositories to see if this improves his condition which based on his previous history of hemorrhoids and his description of the pressure in his rectum sounds like may be the cause. Other less likely cause would be impaction which on his previous CT abdomen and pelvis there was a large stool burden in the rectum. However, based on nurses reports of having no resistance and not feeling in impaction as well as the patient's multiple bowel movements feel like this is less likely. \ Patient is tolerating metoprolol for rate control. Blood cultures drawn by ID over the weekend with no growth. Continues on antibiotics. Intermittent epi sodes of fever, none currently. Awaiting results of today's laboratory findings. Patient also continues to have pain in the right leg predominantly. Again as with yesterday, straight leg test is negative, mild tenderness to palpation at joints, negative Homans sign, no tenderness to palpation over the calf or thigh, no swelling of the legs suggestive of DVT, no rubor. Did take the time again to review both images as well as reports of the wrist and lower extremities which were taken several days ago. Degenerative changes are noted but no acute fractures or injuries. Patient is asking for us to do more imaging including MRI, ultrasound, and CT. He is also asked to have surgery operate on him. He does not appear to be in distress and I have tried to explain to him that based on physical exam findings and our previous imaging further imaging would not elucidate a cause for his condition. We will start Voltaren gel for his joints, short course of colchicine as this very well could be pseudogout related, and Lidoderm patch for his low back. Patient remains on his other pain medications as well and we will continue to monitor him with this accelerated regimen. He again refused occupational therapy this morning due to pain but was able to participate with physical therapy and later came back to participate with occupational therapy. Denies palpitations, chest pain, cough, N/V. Tolerating dialysis well. All records, vitals, labs and medications were reviewed. No other issues per patient, nursing or therapy. Objective - Exam Narrative Exam: MUSCULOSKELETAL SPECIALTY EXAM CONSTITUTIONAL: Well developed, well nourished, appropriately groomed EENT: EOMI. Hearing intact to soft voice RESPIRATORY: Clear to auscultation bilaterally, no increased work of breathing, on O2 NC 2L CARDIOVASCULAR: RRR, no edema. All extremities warm. GI: + bowel sounds, soft, NTTP, distended. INTEGUMENTARY: Normal, no lesion, rash, masses or bruising noted in extremities. MUSCULOSKELETAL: Effusions at the bilateral wrists noted. No noted effusions on visual exam at the knees. There is some tenderness to range of motion of the wrist but no discrete tenderness to palpation as I would expect with a gout exacerbation. Slight tenderness to palpation at right hip. No TTP b/l knees. Mild/insignificant tenderness to palpation over lower back and SI joint area. Seated straight leg raise negative bilaterally. No tenderness to palpation or squeeze at the calf, Stefania signs negative. Bilateral hamstrings tight and some effort involved in order to get patient's legs to full extension. Otherwise, BUE and BLE normal without defect, crepitus, subluxation or TTP. BUE 4-/5, reduced ROM, with normal tone. BLE 4-/5 reduced ROM, with normal tone. NEURO: CN 2-12 grossly intact. Sensation intact in all extremities. Coordination slightly impaired in BUE. No tremor noted in 4 extremities. POSTURE and GAIT: Sitting posture impaired. Balance decreased. Gait slowed with rolling walker. PSYCH: Alert, oriented x3, affect appears flattened. Insight appears impaired at times. - Constitutional Vitals: Vital Signs - 12hr 12/11/18 12/11/18 12/11/18 02:11 03:11 08:18 Temperature 37.3 C Pulse Rate 75 Respiratory 17 17 20 Rate Blood Pressure 165/81 O2 Sat by Pulse 100 Oximetry - Allied health notes Allied health notes reviewed: nursing, PT, OT FIMS assessment as documented by PT/OT/ST: Social interaction/Memory/Problem solving Social Interaction FIM Score 4. Minimal Assistance (Interacts appropriately 75-90%.) Memory FIM Score 4. Minimal Assistance (Recognizes and remembers 75-90%.) Problem Solving FIM Score 4. Minimal Assistance (Solves routine problems 75-90%.) Transfers Mode of Locomotion: Wheelchair Bed/Chair/Wheelchair Transfers 4. Minimal Assistance (Patient = 75% or more. FIM Score Needs touching.) Locomotion- walk/wheelchair Most Frequent Mode of Wheelchair Locomotion: Ambulation Distance 15 Walking FIM Score 1. Total Assistance (Pt. < 25%, 2 or more person assist, or <50 ft.) Wheelchair Propulsion Distance 150 Wheelchair FIM Score 5. Supervision (Minimum 150 ft. supv./cues or 50 ft. independently.) Dressing-lower body Patient retrieves clothing No items: Lower Body Dressing FIM Score 2. Maximal Assistance (Patient = 25% or more) - Labs CBC & Chem 7: 12/09/18 07:24 12/09/18 07:24 Labs: Laboratory Results - last 72 hr 12/08/18 12/09/18 12/09/18 09:12 07:24 07:24 WBC 8.7 RBC 2.71 L Hgb 7.6 L Hct 22.6 L MCV 83 L MCH 28 MCHC 34 RDW 17.0 H Plt Count 284 Sodium 134 L Potassium 3.6 Chloride 91.7 L Carbon Dioxide 26 Anion Gap 20 BUN 18 Creatinine 4.6 H Estimated GFR 15 BUN/Creatinine Ratio 4 Glucose 81 Calcium 8.6 Blood Type O POSITIVE Antibody Screen Negative Crossmatch See Detail - Imaging and cardiology Other: report reviewed (Knee, wrist, hip), image reviewed Assessment and Plan New onset atrial fibrillation: On rate control and telemetry per cardiology. Appreciate their assistance. Defer anticoagulation at this point due to anemia. PNA and Sepsis (MSSA) with persistent fevers on abx: cont cefazolin until 12/27/18. Monitor for any signs of worsening pneumonia and are leukocytosis. Expect to continue seeing the intermittent fevers and will treat with Tylenol as needed. Patient does have bilateral pulmonary septic emboli. SAMARIA did not show vegetations. Infectious disease also monitoring. Blood cultures pending ESRD on HD: Continue hemodialysis per nephrology and renally dose medications including antibiotics. Hypertension: Continue medications, adjust as needed for normotension. Amlodipine added by cardiology. Anemia: Continue to monitor hemoglobin. Continue erythropoietin. Transfuse as needed. Improved to 7.6 after PRBC Thyroid nodule seen on CT: Recommend follow-up. Possible pseudogout - short course of treatment with colchicine. Due to current abx treatment for septic emboli, will avoid joint aspiration to reduce risk of further infection Z73.6 ADL dysfunction: OT will work on improving ability to perform ADLs (includ ing assistive devices) to increase independence and decrease caregiver burden and improve functional transfers and mobility training. R26.2 Difficulty walking: PT will work on gait training and proper use of assistive devices and advance as appropriate to use of stairs and outside ambulation on uneven surfaces. R26.81 Unsteadiness on feet: PT will work on improving static and dynamic sitting and standing balance as well as proper use of assistive devices to decrease risk of falls. R26.89 Abnormality of gait: PT will work to improve safety and efficiency of gait through neuromotor training and gait training along with instruction on proper use of assistive devices. M62.81 Muscle weakness: PT & OT will work on strengthening exercises to improve functional strength including mixture of closed and open kinetic chain exercises. R53.81 Debility: PT & OT will work on improving overall functional status to improve participation with ADLs, mobility and social involvement. R53.83 Fatigue: PT & OT will work on improving endurance through aerobic exercises and therapeutic activity while monitoring patients tolerance for activity and vital signs as needed. K59.00 Constipation: Bisacodyl supp today. Dulcolax PO and miralax, sorbitol. KUB with moderate stool burden - no obstruction DVT ppx: SCDs, heparin Pain: Continue physical modalities in therapy and pain medications as needed to achieve functional pain control. Add voltaren, lidoderm. Sleep: Monitor and address as needed. Bowel: Monitor and address as needed. Appetite: Monitor and address as needed. Discharge planning: Pending therapy progress and care plan meeting. Will continue discussion with therapy team, SW, patient and family. Restrictions/ Precautions: Falls WB status: FWB Functional Hx: ADLs: Independent Cognition: Independent Mobility: No AD Barriers to Discharge: Decreased mobility and ability to perform self care, balance deficits, weakness Estimated Length of Stay: 1418 days Discharge Destination: Home with family vs SNF
[2018-12-11 12:16] LABS: Hematocrit 22.5 % (35.5-45.6); Hemoglobin 7.4 gm/dl (11.8-15.2); Mean Corpuscular HGB Conc 33 % (32-34); Mean Corpuscular Volume 83 fl (84-94); Platelet Count 259 K/mm3 (140-440); Red Cell Distribution Width 17.2 % (13.2-15.2)
[2018-12-11] MEDS: PROCRIT IV SCH (12:43)
[2018-12-11] MEDS: COLCHICINE PO SCH (12:44)
[2018-12-11] MEDS: LIDODERM 5% TD SCH (12:48)
[2018-12-11 12:56] LABS: Calcium 8.7 mg/dL (8.4-10.2)
[2018-12-11] MEDS: DICLOFENAC 1% TP SCH ×2 (14:20→21:37)
--- NOTE | 2018-12-11 16:37 | Progress Note ---
Assessment and Plan 73 yo M PMHx HTN, ESRD on HD, hyperparathyroidism, OA admitted with vascular catheter infection. 1. MSSA bacteremia secondary to Vascular catheter infection: catheter removed. Repeat blood cultures from 11/15/2018 negative. Got new HD cath placed. TTE unremarkable for any vegetations. Intermittent fevers continues felt to be s eptic emboli or gouty attack. CT chest abdomen and pelvis shows bilateral pulmonary septic emboli, no abdominal abscess. SAMARIA no vegetations. 2. Persistent fever: ? from septic emboli or gouty attack. History of madelyn wrist gout. Recs: repeat blood culture XR right hip, madelyn wrists and madelyn knees Gouty attack per IMS continue Cefazolin IV for total 6 weeks of post HD ending 12/27/2018 Will follow. Sarah Kenyon MD [facility] M: [phone] O: [phone] F: [phone] Subjective Date of service: 12/11/18 Principal diagnosis: Debility, weakness, sepsis Interval history: Afebrile, no new issues. Objective - Exam Narrative Exam: General appearance: Alert in NAD Eyes: anicteric sclerae, moist conjunctivae; no lid-lag; PERRLA HENT: Atraumatic; oropharynx clear with moist mucous membranes and no mucosal ulcerations/no oral thrush; normal hard and soft palate. Lungs: CTA, with normal respiratory effort and no intercostal retractions CV: RRR Abdomen: Soft, non-tender; no masses or hepatosplenomegaly Extremities: +madelyn wrist edema and tenderness, madelyn knee edema and tenderness, +right hip passive pain Skin: No rash. Psych: no agitated. Neuro: alert and oriented x 2 - Constitutional Vitals: Vital Signs Temp Pulse Resp BP Pulse Ox 98.6 F 68 18 155/58 100 12/11/18 12:29 12/11/18 14:17 12/11/18 12:29 12/11/18 14:17 12/11/18 12:29 Temperature -Last 24 Hours Temperature 98.6 F Temperature 99.1 F Temperature 98.1 F Temperature 98.9 F Temperature 98.4 F - Labs CBC & Chem 7: 12/11/18 08:29 12/11/18 08:29 Labs: Abnormal lab results 12/11/18 12/11/18 Range/Units 08:29 08:29 RBC 2.70 L (3.65-5.03) M/mm3 Hgb 7.4 L (11.8-15.2) gm/dl Hct 22.5 L (35.5-45.6) % MCV 83 L (84-94) fl MCH 27 L (28-32) pg RDW 17.2 H (13.2-15.2) % Sodium 135 L (137-145) mmol/L Potassium 3.4 L (3.6-5.0) mmol/L Chloride 94.2 L (98-107) mmol/L Creatinine 4.1 H (0.8-1.5) mg/dL
--- NOTE | 2018-12-11 17:13 | Progress Note ---
Assessment and Plan - Patient Problems (1) Hypertensive chronic kidney disease with stage 5 chronic kidney disease or end stage renal disease Current Visit: Yes Status: Acute Plan to address problem: Follow-up blood pressure on current medications (2) Altered mental status Current Visit: No Status: Acute Plan to address problem: Mental status has improved back to normal. Patient with severe deconditioning. Continue physical therapy (3) Anemia in CKD (chronic kidney disease) Current Visit: No Status: Acute Qualifiers: Chronic kidney disease stage: stage 5, not on chronic dialysis Qualified Code(s): N18.5 - Chronic kidney disease, stage 5; D63.1 - Anemia in chronic kidney disease Plan to address problem: Continue erythropoietin on dialysis. Follow-up hemoglobin (4) Sepsis due to infected central venous catheter Current Visit: No Status: Acute Plan to address problem: MSSA bacteremia line related. Status post removal of permacath and new permacath placement. Repeat blood cultures negative. Continue antibiotics per infectious disease (5) ESRD (end stage renal disease) Current Visit: Yes Status: Chronic Plan to address problem: Hemodialysis on a Friday, and Friday schedule. (6) Pneumonia Current Visit: Yes Status: Acute Qualifiers: Pneumonia type: due to unspecified organism Laterality: unspecified laterality Lung location: unspecified part of lung Qualified Code(s): J18.9 - Pneumonia, unspecified organism Plan to address problem: h/o MSSA bactermia in the setting of infected RIJ Permcath, s/p removal with repeat cultures x 2 sets negative, s/p new permcath placement. Cont ABXs as per ID recommendations. CT chest/abdomen indicating evidence of septic emboli. TTE/SAMARIA were unremarkable for vegetations (7) Constipation Current Visit: Yes Status: Acute Plan to address problem: Continue sorbitol (8) Joint pain Current Visit: Yes Status: Acute Plan to address problem: X-rays shows degenerative joint disease with joint effusions. Uric acid is normal. Consider orthopedic consult ?arthrocentesis Subjective Date of service: 12/11/18 Principal diagnosis: Debility, weakness, sepsis Interval history: Patient seen lying in bed. No Family at the bedside. He feels better today. He is sleepy. He had physical therapy earlier Objective - Exam Narrative Exam: Frail elderly -Congolese male lying in bed in no acute distress HEENT: NCAT, pink oral mucous membrane Neck: Supple, no venous distention CVS: S1S2 RRR with no murmur, rub or gallop Chest: Clear to auscultation Abdomen: Protuberant, soft, suprapubic distention, nontender, no organomegaly, bowel sounds are present Extremities: No edema Neuro: Awake, alert no focal deficits, decreased muscle power - Vital Signs Vital signs: Vital Signs - 12hr 12/11/18 12/11/18 12/11/18 08:18 12:29 14:17 Temperature 99.1 F 98.6 F Pulse Rate 75 68 68 Respiratory 20 18 Rate Blood Pressure 165/81 145/73 155/58 O2 Sat by Pulse 100 100 Oximetry - Lab 12/11/18 08:29 12/11/18 08:29 Most recent lab results Calcium 8.7 mg/dL (8.4-10.2) 12/11/18 08:29 Phosphorus 5.90 mg/dL (2.5-4.5) H 12/03/18 06:14 Medications & Allergies - Medications Allergies/Adverse Reactions: Allergies No Known Allergies Allergy (Verified 08/27/18 16:19) Home Medications: Home Medications Medication Instructions Recorded Confirmed Last Taken Type Acetaminophen [Acetaminophen 650 mg NV Q4H PRN supp.rect 11/26/18 12/02/18 12/01/18 Rx SUPPOS] Docusate Sodium [Colace CAP] 100 mg PO BID capsule 11/26/18 12/02/18 12/01/18 Rx Epoetin Jeramy 10,000 Unit [Procrit] 10,000 unit IV TuThSa vial 11/26/18 12/02/18 12/01/18 Rx Polyethylene Glycol 3350 [Miralax 17 gm PO BID PRN powd.pack 11/26/18 12/02/18 12/01/18 Rx 3350] Sevelamer Carbonate [Renvela] 2,400 mg PO AC tablet 11/26/18 12/02/18 12/01/18 Rx oxyCODONE /ACETAMINOPHEN [Percocet 1 tab PO Q6H PRN tablet 11/26/18 12/02/18 12/01/18 Rx 5/325 mg] Active Medications: Generic Name Dose Route Start Last Admin Trade Name Freq PRN Reason Stop Dose Admin Acetaminophen 650 mg 12/01/18 11:36 12/04/18 13:21 Tylenol PO 650 mg Q6H PRN Administration Non Cardiac Pain or Temp>100.5 Bisacodyl 10 mg 12/01/18 11:36 12/07/18 23:10 Dulcolax NV 10 mg QDAY PRN Administration Constipation Colchicine 0.6 mg 12/11/18 11:30 12/11/18 12:44 Colchicine PO 12/16/18 11:29 0.6 mg QDAY ISABELLA Administration Diclofenac Sodium 1 applic 12/11/18 14:00 12/11/18 14:20 Diclofenac 1% TP 1 applic TID ISABELLA Administration Epoetin Jeramy 10,000 unit 12/03/18 12:00 12/11/18 12:43 Procrit IV Not Given TUTHSA [facility] Heparin Sodium (Porcine) 5,000 unit 12/10/18 22:00 12/11/18 12:42 Heparin SUB-Q Not Given Q12HR [facility] Cefazolin Sodium 1 gm in 50 mls @ 100 mls/hr 12/02/18 18:00 12/10/18 18:27 Ancef/Ns 1 Gm/50 Ml IV 12/27/18 18:29 100 mls/hr QPM [facility] Administration Protocol Sodium Chloride 100 mls @ 999 mls/hr 12/02/18 09:33 Nacl 0.9% IV SISSY PRN Hypotension Lidocaine 1 each 12/11/18 11:30 12/11/18 12:48 Lidoderm 5% TD 1 each QDAY ISABELLA Administration Metoprolol Tartrate 100 mg 12/11/18 14:00 12/11/18 14:17 Lopressor PO 100 mg TID ISABELLA Administration Ondansetron HCl 4 mg 12/01/18 11:36 12/08/18 05:29 Zofran Odt PO 4 mg Q8H PRN Administration Nausea And Vomiting Oxycodone/Acetaminophen 1 tab 12/01/18 11:37 12/11/18 08:18 Percocet 5/325 PO 1 tab Q6H PRN Administration Pain, Moderate (4-6) Phenyleph/Shark Oil/[place] Butter 1 each 12/09/18 18:33 12/10/18 12:49 Hemorrhoidal 0.25/3/85.5% NV 1 each Q6H PRN Administration Hemorrhoids Polyethylene Glycol 17 gm 12/02/18 08:00 12/11/18 08:14 Miralax 3350 PO 17 gm QDAY ISABELLA Administration Sevelamer Carbonate 2,400 mg 12/01/18 18:30 12/11/18 16:55 Renvela PO 2,400 mg AC ISABELLA Administration Sodium Chloride 10 ml 12/01/18 11:37 Sodium Chloride Flush Syringe 10 Ml IV PRN PRN LINE FLUSH Sorbitol 30 ml 12/07/18 11:00 12/07/18 21:14 Sorbitol 70% PO 30 ml PRN PRN Administration Constipation
[2018-12-11] MEDS: ANCEF/NS 1 GM/50 ML 1 GM/50 ML BAG IV SCH (17:48)
[2018-12-12] MEDS: LIDODERM 5% TD SCH (09:00)
[2018-12-12] MEDS: HEPARIN SUB-Q SCH ×2 (09:00→22:57)
[2018-12-12] MEDS: DICLOFENAC 1% TP SCH ×3 (09:00→21:55)
[2018-12-12] MEDS: COLCHICINE PO SCH (09:01)
[2018-12-12] MEDS: MIRALAX 3350 PO SCH (09:01)
[2018-12-12] MEDS: LOPRESSOR PO SCH ×2 (09:01→15:14)
[2018-12-12] MEDS: RENVELA PO SCH ×3 (09:01→17:10)
--- NOTE | 2018-12-12 12:17 | Progress Note ---
Assessment and Plan - Patient Problems (1) End stage renal disease Current Visit: No Status: Chronic Plan to address problem: cont maintenance HD on TTS schedule (2) Sepsis Current Visit: Yes Status: Acute Qualifiers: Sepsis type: methicillin susceptible Staphylococcus aureus Plan to address problem: h/o MSSA bactermia in the setting of infected RIJ Permcath, s/p removal with repeat cultures x 2 sets negative, s/p new permcath placement. Cont ABXs as per ID recommendations. CT chest/abdomen indicating evidence of septic emboli. TTE/SAMARIA were unremarkable for vegetations (3) Hypertensive chronic kidney disease with stage 5 chronic kidney disease or end stage renal disease Current Visit: No Status: Chronic Plan to address problem: monitor BP on current BP regimen (4) Secondary hyperparathyroidism (of renal origin) Current Visit: No Status: Chronic Plan to address problem: cont renal diet and home phos binder regimen with renvela (5) Constipation Current Visit: Yes Status: Acute Plan to address problem: Continue sorbitol (6) Joint pain Current Visit: Yes Status: Acute Plan to address problem: X-rays shows degenerative joint disease with joint effusions. Uric acid is normal. possible pseudogout? ordered toradol 30mg IVSS x 1 dose for acute pain control Subjective Date of service: 12/12/18 Principal diagnosis: anemia Interval history: Pt awake alert, denies fever, chills, n/v/d. c/o Rt wrist pain, not improved with current meds Objective - Vital Signs Vital signs: Vital Signs - 12hr 12/12/18 12/12/18 12/12/18 00:55 04:42 07:41 Temperature 98.0 F 98.0 F Pulse Rate 72 66 69 Respiratory 17 17 16 Rate Respiratory Rate [Right Back] Respiratory Rate [Right Leg ] Blood Pressure 156/68 152/76 Blood Pressure 150/76 [Left] O2 Sat by Pulse 98 91 91 Oximetry 12/12/18 12/12/18 07:44 10:00 Temperature Pulse Rate Respiratory Rate Respiratory 17 Rate [Right Back] Respiratory 17 Rate [Right Leg ] Blood Pressure Blood Pressure [Left] O2 Sat by Pulse 94 Oximetry - General Appearance General appearance: well-developed, well-nourished, appears stated age EENT: ATNC, PERRL, mucous membranes moist Neck: no JVD Respiratory: Present: Clear to Ascultation Cardiology: regular, S1S2 Gastrointestinal: normoactive bowel sounds Integumentary: no rash, other (Rt wrist swelling ) Neurologic: no focal deficit, alert and oriented x3, strength 5/5, CN 3-12 intact Psychiatric: mood/affect appropriate, cooperative - Lab 12/11/18 08:29 12/11/18 08:29 Most recent lab results Calcium 8.7 mg/dL (8.4-10.2) 12/11/18 08:29 Phosphorus 5.90 mg/dL (2.5-4.5) H 12/03/18 06:14 Medications & Allergies - Medications Allergies/Adverse Reactions: Allergies No Known Allergies Allergy (Verified 08/27/18 16:19) Home Medications: Home Medications Medication Instructions Recorded Confirmed Last Taken Type Acetaminophen [Acetaminophen 650 mg NM Q4H PRN supp.rect 11/26/18 12/02/18 12/01/18 Rx SUPPOS] Docusate Sodium [Colace CAP] 100 mg PO BID capsule 11/26/18 12/02/18 12/01/18 Rx Epoetin Jeramy 10,000 Unit [Procrit] 10,000 unit IV TuThSa vial 11/26/18 12/02/18 12/01/18 Rx Polyethylene Glycol 3350 [Miralax 17 gm PO BID PRN powd.pack 11/26/18 12/02/18 12/01/18 Rx 3350] Sevelamer Carbonate [Renvela] 2,400 mg PO AC tablet 11/26/18 12/02/18 12/01/18 Rx oxyCODONE /ACETAMINOPHEN [Percocet 1 tab PO Q6H PRN tablet 11/26/18 12/02/18 12/01/18 Rx 5/325 mg] Active Medications: Generic Name Dose Route Start Last Admin Trade Name Freq PRN Reason Stop Dose Admin Acetaminophen 650 mg 12/01/18 11:36 12/04/18 13:21 Tylenol PO 650 mg Q6H PRN Administration Non Cardiac Pain or Temp>100.5 Amlodipine Besylate 5 mg 12/12/18 10:00 Norvasc PO QDAY ISABELLA Bisacodyl 10 mg 12/01/18 11:36 12/07/18 23:10 Dulcolax NM 10 mg QDAY PRN Administration Constipation Colchicine 0.6 mg 12/11/18 11:30 12/12/18 09:01 Colchicine PO 12/16/18 11:29 0.6 mg QDAY ISABELLA Administration Diclofenac Sodium 1 applic 12/11/18 14:00 12/12/18 09:00 Diclofenac 1% TP 1 applic TID ISABELLA Administration Epoetin Jeramy 10,000 unit 12/03/18 12:00 12/11/18 12:43 Procrit IV Not Given [facility] Heparin Sodium (Porcine) 5,000 unit 12/10/18 22:00 12/12/18 09:00 Heparin SUB-Q 5,000 unit Q12HR ISABELLA Administration Cefazolin Sodium 1 gm in 50 mls @ 100 mls/hr 12/02/18 18:00 12/11/18 17:48 Ancef/Ns 1 Gm/50 Ml IV 12/27/18 18:29 100 mls/hr QPM ISABELLA Administration Protocol Sodium Chloride 100 mls @ 999 mls/hr 12/02/18 09:33 Nacl 0.9% IV SISSY PRN Hypotension Ketorolac Tromethamine 30 mg 12/12/18 12:15 Toradol IV 12/12/18 12:16 ONCE ONE Lidocaine 1 each 12/11/18 11:30 12/12/18 09:00 Lidoderm 5% TD 1 each QDAY ISABELLA Administration Metoprolol Tartrate 100 mg 12/11/18 14:00 12/12/18 09:01 Lopressor PO 100 mg TID ISABELLA Administration Ondansetron HCl 4 mg 12/01/18 11:36 12/08/18 05:29 Zofran Odt PO 4 mg Q8H PRN Administration Nausea And Vomiting Oxycodone/Acetaminophen 1 tab 12/01/18 11:37 12/11/18 21:37 Percocet 5/325 PO 1 tab Q6H PRN Administration Pain, Moderate (4-6) Phenyleph/Shark Oil/[place] Butter 1 each 12/09/18 18:33 12/10/18 12:49 Hemorrhoidal 0.25/3/85.5% NM 1 each Q6H PRN Administration Hemorrhoids Polyethylene Glycol 17 gm 12/02/18 08:00 12/12/18 09:01 Miralax 3350 PO 17 gm QDAY ISABELLA Administration Sevelamer Carbonate 2,400 mg 12/01/18 18:30 12/12/18 09:01 Renvela PO 2,400 mg AC ISABELLA Administration Sodium Chloride 10 ml 12/01/18 11:37 Sodium Chloride Flush Syringe 10 Ml IV PRN PRN LINE FLUSH Sorbitol 30 ml 12/07/18 11:00 12/07/18 21:14 Sorbitol 70% PO 30 ml PRN PRN Administration Constipation
[2018-12-12] MEDS: NORVASC PO SCH (12:51)
[2018-12-12] MEDS ORDERED: TORADOL IV ONE (13:00)
[2018-12-12] MEDS ORDERED: NACL 0.9 (PRIMING MACHINE ONLY DIALYSIS) MC ONE (18:13)
[2018-12-12] MEDS: PERCOCET 5/325 PO PRN (22:57)
[2018-12-12] MEDS: ANCEF/NS 1 GM/50 ML 1 GM/50 ML BAG IV SCH (23:03)
[2018-12-13] MEDS: LOPRESSOR PO SCH ×4 (01:15→22:18)
[2018-12-13] MEDS: RENVELA PO SCH ×3 (08:55→16:24)
[2018-12-13] MEDS: MIRALAX 3350 PO SCH ×2 (08:55→18:00)
[2018-12-13] MEDS: COLCHICINE PO SCH (08:55)
[2018-12-13] MEDS: NORVASC PO SCH (08:55)
[2018-12-13] MEDS: SORBITOL 70% PO PRN (08:56)
[2018-12-13] MEDS: DICLOFENAC 1% TP SCH ×3 (08:57→22:20)
[2018-12-13] MEDS: LIDODERM 5% TD SCH (08:57)
[2018-12-13] MEDS: PERCOCET 5/325 PO PRN (09:09)
--- NOTE | 2018-12-13 09:13 | Progress Note ---
Assessment and Plan - Patient Problems (1) End stage renal disease Current Visit: No Status: Chronic Plan to address problem: cont maintenance HD on TTS schedule (2) Sepsis Current Visit: Yes Status: Acute Qualifiers: Sepsis type: methicillin susceptible Staphylococcus aureus Plan to address problem: h/o MSSA bactermia in the setting of infected RIJ Permcath, s/p removal with repeat cultures x 2 sets negative, s/p new permcath placement. Cont ABXs as per ID recommendations. CT chest/abdomen indicating evidence of septic emboli. TTE/SAMARIA were unremarkable for vegetations (3) Hypertensive chronic kidney disease with stage 5 chronic kidney disease or end stage renal disease Current Visit: No Status: Chronic Plan to address problem: monitor BP on current BP regimen (4) Secondary hyperparathyroidism (of renal origin) Current Visit: No Status: Chronic Plan to address problem: cont renal diet and home phos binder regimen with renvela (5) Constipation Current Visit: Yes Status: Acute Plan to address problem: Continue sorbitol (6) Joint pain Current Visit: Yes Status: Acute Plan to address problem: X-rays shows degenerative joint disease with joint effusions. Uric acid is normal. possible pseudogout? pt responded well to toradol, cont 15g IVSS q8h prn Subjective Date of service: 12/13/18 Principal diagnosis: anemia Interval history: Pt awake alert, denies fever, chills, n/v/d. reports improved Rt wrist pain Objective - Vital Signs Vital signs: Vital Signs - 12hr 12/12/18 12/12/18 12/12/18 21:15 21:29 22:00 Temperature 98.6 F 98.6 F Pulse Rate 75 75 Respiratory 16 18 Rate Respiratory 17 Rate [Abdomen] Respiratory 17 Rate [Right Back] Respiratory 17 Rate [Right Hip ] Respiratory 17 Rate [Right Leg ] Blood Pressure 164/79 Blood Pressure 164/79 [Left] O2 Sat by Pulse 97 Oximetry 12/12/18 12/12/18 12/12/18 22:15 22:57 23:00 Temperature Pulse Rate 89 Respiratory 17 17 Rate Respiratory Rate [Abdomen] Respiratory Rate [Right Back] Respiratory Rate [Right Hip ] Respiratory Rate [Right Leg ] Blood Pressure Blood Pressure 110/74 [Left] O2 Sat by Pulse 100 Oximetry 12/12/18 12/13/18 12/13/18 23:57 01:06 01:15 Temperature 98.5 F Pulse Rate 110 H 114 H Respiratory 17 17 Rate Respiratory Rate [Abdomen] Respiratory Rate [Right Back] Respiratory Rate [Right Hip ] Respiratory Rate [Right Leg ] Blood Pressure 129/74 Blood Pressure 129/74 [Left] O2 Sat by Pulse 100 Oximetry 12/13/18 12/13/18 05:07 07:42 Temperature 97.9 F 98.9 F Pulse Rate 110 H 105 H Respiratory 17 18 Rate Respiratory Rate [Abdomen] Respiratory Rate [Right Back] Respiratory Rate [Right Hip ] Respiratory Rate [Right Leg ] Blood Pressure 147/87 Blood Pressure 155/88 [Left] O2 Sat by Pulse 91 95 Oximetry - General Appearance General appearance: well-developed, well-nourished, appears stated age EENT: ATNC, PERRL, mucous membranes moist Neck: no JVD Respiratory: Present: Clear to Ascultation Cardiology: regular, S1S2 Gastrointestinal: normoactive bowel sounds Integumentary: no rash, other Neurologic: no focal deficit, alert and oriented x3, strength 5/5, CN 3-12 intact Psychiatric: mood/affect appropriate, cooperative - Lab 12/11/18 08:29 12/11/18 08:29 Most recent lab results Calcium 8.7 mg/dL (8.4-10.2) 12/11/18 08:29 Phosphorus 5.90 mg/dL (2.5-4.5) H 12/03/18 06:14 Medications & Allergies - Medications Allergies/Adverse Reactions: Allergies No Known Allergies Allergy (Verified 08/27/18 16:19) Home Medications: Home Medications Medication Instructions Recorded Confirmed Last Taken Type Acetaminophen [Acetaminophen 650 mg [place] Q4H PRN supp.rect 11/26/18 12/02/18 12/01/18 Rx SUPPOS] Docusate Sodium [Colace CAP] 100 mg PO BID capsule 11/26/18 12/02/18 12/01/18 Rx Epoetin Jeramy 10,000 Unit [Procrit] 10,000 unit IV TuThSa vial 11/26/18 12/02/18 12/01/18 Rx Polyethylene Glycol 3350 [Miralax 17 gm PO BID PRN powd.pack 11/26/18 12/02/18 12/01/18 Rx 3350] Sevelamer Carbonate [Renvela] 2,400 mg PO AC tablet 11/26/18 12/02/18 12/01/18 Rx oxyCODONE /ACETAMINOPHEN [Percocet 1 tab PO Q6H PRN tablet 11/26/18 12/02/18 12/01/18 Rx 5/325 mg] Active Medications: Generic Name Dose Route Start Last Admin Trade Name Freq PRN Reason Stop Dose Admin Acetaminophen 650 mg 12/01/18 11:36 12/04/18 13:21 Tylenol PO 650 mg Q6H PRN Administration Non Cardiac Pain or Temp>100.5 Amlodipine Besylate 5 mg 12/12/18 10:00 12/13/18 08:55 Norvasc PO 5 mg QDAY ISABELLA Administration Bisacodyl 10 mg 12/01/18 11:36 12/07/18 23:10 Dulcolax MN 10 mg QDAY PRN Administration Constipation Colchicine 0.6 mg 12/11/18 11:30 12/13/18 08:55 Colchicine PO 12/16/18 11:29 0.6 mg QDAY ISABELLA Administration Diclofenac Sodium 1 applic 12/11/18 14:00 12/13/18 08:57 Diclofenac 1% TP 1 applic TID ISABELLA Administration Epoetin Jeramy 10,000 unit 12/03/18 12:00 12/11/18 12:43 Procrit IV Not Given [facility] Heparin Sodium (Porcine) 5,000 unit 12/10/18 22:00 12/12/18 22:57 Heparin SUB-Q 5,000 unit Q12HR ISABELLA Administration Cefazolin Sodium 1 gm in 50 mls @ 100 mls/hr 12/02/18 18:00 12/12/18 23:03 Ancef/Ns 1 Gm/50 Ml IV 12/27/18 18:29 100 mls/hr QPM ISABELLA Administration Protocol Sodium Chloride 100 mls @ 999 mls/hr 12/02/18 09:33 Nacl 0.9% IV SISSY PRN Hypotension Lidocaine 1 each 12/11/18 11:30 12/13/18 08:57 Lidoderm 5% TD 1 each QDAY ISABELLA Administration Metoprolol Tartrate 100 mg 12/11/18 14:00 12/13/18 08:56 Lopressor PO 100 mg TID ISABELLA Administration Ondansetron HCl 4 mg 12/01/18 11:36 12/08/18 05:29 Zofran Odt PO 4 mg Q8H PRN Administration Nausea And Vomiting Oxycodone/Acetaminophen 1 tab 12/01/18 11:37 12/12/18 22:57 Percocet 5/325 PO 1 tab Q6H PRN Administration Pain, Moderate (4-6) Phenyleph/Shark Oil/[place] Butter 1 each 12/09/18 18:33 12/10/18 12:49 Hemorrhoidal 0.25/3/85.5% MN 1 each Q6H PRN Administration Hemorrhoids Polyethylene Glycol 17 gm 12/02/18 08:00 12/13/18 08:55 Miralax 3350 PO 17 gm QDAY ISABELLA Administration Sevelamer Carbonate 2,400 mg 12/01/18 18:30 12/13/18 08:55 Renvela PO 2,400 mg AC ISABELLA Administration Sodium Chloride 10 ml 12/01/18 11:37 Sodium Chloride Flush Syringe 10 Ml IV PRN PRN LINE FLUSH Sorbitol 30 ml 12/07/18 11:00 12/13/18 08:56 Sorbitol 70% PO 30 ml PRN PRN Administration Constipation
[2018-12-13] MEDS: TORADOL IV PRN ×2 (11:51→22:16)
[2018-12-13] MEDS: PROCRIT IV SCH ×2 (14:19→19:32)
[2018-12-13] MEDS: ANCEF/NS 1 GM/50 ML 1 GM/50 ML BAG IV SCH (18:00)
[2018-12-13] MEDS: HEPARIN SUB-Q SCH ×2 (19:32→22:18)
--- NOTE | 2018-12-14 06:24 | Hem/Onc Progress Note ---
Assessment and Plan 1. Based on CT finding, it is septic emboli and not a thrombotic event. Anticoagulation is less likely to be helpful. 2. Anemia of chronic kidney disease, may have a role. This also can be multifactorial. We will follow 3. History of leukocytosis. 4. History of high PTH. 5. End-stage renal disease, on dialysis. 6. History of fever. 7. Fever issues. 8. Antibiotic and physical Therapy. 9. History of hypertension. 10. Pt has Permacath for dialysis issues. I will follow the patient during the inpatient stay and then in the clinic setting. Abx as per ID b12 - folate - iron ferritin WNL seen by ID ESRD pts get epo and iv iron with HD 12/14 s/p PRBC - hb 7.4 joint pain - rehab following - Patient Problems (1) Septic embolism Current Visit: Yes Status: Acute Subjective Date of service: 12/14/18 Principal diagnosis: anemia Interval history: no bleeding - as per RN - stool guiac negative Objective - Exam Narrative Exam: Pain - none General appearance - awake Performance status limited self care Eyes - no icterus ENT - no bleeding LNs cervical not palpable Neck - no LN Respiratory Normal Breath sounds - CTA anteriorly CVS S1 S2 + Extremities no calf tenderness General GI Soft Rectal deferred male - deferred Skin warm Musculoskeletal moving extremitites Neurologically awake - Constitutional Vitals: Last Vital Signs Temp 98.3 F 12/14/18 03:46 Pulse 68 12/14/18 03:46 Resp 17 12/14/18 03:46 BP 164/72 12/14/18 03:46 Pulse Ox 99 12/14/18 03:46 Medications & Allergies - Medications Allergies/Adverse Reactions: Allergies No Known Allergies Allergy (Verified 08/27/18 16:19) Home Medications: Home Medications Medication Instructions Recorded Confirmed Last Taken Type Acetaminophen [Acetaminophen 650 mg [place] Q4H PRN supp.rect 11/26/18 12/02/18 12/01/18 Rx SUPPOS] Docusate Sodium [Colace CAP] 100 mg PO BID capsule 11/26/18 12/02/18 12/01/18 Rx Epoetin Jeramy 10,000 Unit [Procrit] 10,000 unit IV TuThSa vial 11/26/18 12/02/18 12/01/18 Rx Polyethylene Glycol 3350 [Miralax 17 gm PO BID PRN powd.pack 11/26/18 12/02/18 12/01/18 Rx 3350] Sevelamer Carbonate [Renvela] 2,400 mg PO AC tablet 11/26/18 12/02/18 12/01/18 Rx oxyCODONE /ACETAMINOPHEN [Percocet 1 tab PO Q6H PRN tablet 11/26/18 12/02/18 12/01/18 Rx 5/325 mg] Active Medications: Generic Name Dose Route Start Last Admin Trade Name Freq PRN Reason Stop Dose Admin Acetaminophen 650 mg 12/01/18 11:36 12/04/18 13:21 Tylenol PO 650 mg Q6H PRN Administration Non Cardiac Pain or Temp>100.5 Amlodipine Besylate 5 mg 12/12/18 10:00 12/13/18 08:55 Norvasc PO 5 mg QDAY ISABELLA Administration Bisacodyl 10 mg 12/01/18 11:36 12/07/18 23:10 Dulcolax [place] 10 mg QDAY PRN Administration Constipation Colchicine 0.6 mg 12/11/18 11:30 12/13/18 08:55 Colchicine PO 12/16/18 11:29 0.6 mg QDAY ISABELLA Administration Diclofenac Sodium 1 applic 12/11/18 14:00 12/13/18 22:20 Diclofenac 1% TP 1 applic TID ISABELLA Administration Epoetin Jeramy 10,000 unit 12/03/18 12:00 12/13/18 19:32 Procrit IV Not Given [facility] Heparin Sodium (Porcine) 5,000 unit 12/10/18 22:00 12/13/18 22:18 Heparin SUB-Q 5,000 unit Q12HR ISABELLA Administration Cefazolin Sodium 1 gm in 50 mls @ 100 mls/hr 12/02/18 18:00 12/13/18 18:00 Ancef/Ns 1 Gm/50 Ml IV 12/27/18 18:29 100 mls/hr QPM ISABELLA Administration Protocol Sodium Chloride 100 mls @ 999 mls/hr 12/02/18 09:33 Nacl 0.9% IV SISSY PRN Hypotension Ketorolac Tromethamine 15 mg 12/13/18 09:11 12/13/18 22:16 Toradol IV 12/18/18 09:10 15 mg Q8H PRN Administration Pain, Mild (1-3) Lidocaine 1 each 12/11/18 11:30 12/13/18 08:57 Lidoderm 5% TD 1 each QDAY ISABELLA Administration Metoprolol Tartrate 100 mg 12/11/18 14:00 12/13/18 22:18 Lopressor PO 100 mg TID ISABELLA Administration Ondansetron HCl 4 mg 12/01/18 11:36 12/08/18 05:29 Zofran Odt PO 4 mg Q8H PRN Administration Nausea And Vomiting Oxycodone/Acetaminophen 1 tab 12/01/18 11:37 12/13/18 09:09 Percocet 5/325 PO 1 tab Q6H PRN Administration Pain, Moderate (4-6) Phenyleph/Shark Oil/[place] Butter 1 each 12/09/18 18:33 12/10/18 12:49 Hemorrhoidal 0.25/3/85.5% [place] 1 each Q6H PRN Administration Hemorrhoids Polyethylene Glycol 17 gm 12/02/18 08:00 12/13/18 18:00 Miralax 3350 PO Not Given QDAY ISABELLA Sevelamer Carbonate 2,400 mg 12/01/18 18:30 12/13/18 16:24 Renvela PO 2,400 mg AC ISABELLA Administration Sodium Chloride 10 ml 12/01/18 11:37 Sodium Chloride Flush Syringe 10 Ml IV PRN PRN LINE FLUSH Sorbitol 30 ml 12/07/18 11:00 12/13/18 08:56 Sorbitol 70% PO 30 ml PRN PRN Administration Constipation
[2018-12-14] MEDS: RENVELA PO SCH ×3 (07:58→16:52)
[2018-12-14] MEDS: LOPRESSOR PO SCH ×3 (08:48→21:38)
[2018-12-14] MEDS: NORVASC PO SCH (08:49)
[2018-12-14] MEDS: LIDODERM 5% TD SCH (08:50)
[2018-12-14] MEDS: DICLOFENAC 1% TP SCH ×3 (08:51→21:42)
[2018-12-14] MEDS: MIRALAX 3350 PO SCH (08:53)
[2018-12-14] MEDS: COLCHICINE PO SCH (10:14)
[2018-12-14] MEDS: TORADOL IV PRN (10:16)
[2018-12-14] MEDS: HEPARIN SUB-Q SCH ×2 (10:25→22:50)
[2018-12-14] MEDS: PROCRIT IV SCH (10:35)
--- NOTE | 2018-12-14 10:56 | Progress Note ---
Assessment and Plan Currently stable cardiac status. Cont present cardiac management. Pt may benefit from systemic AC in regards to atrial fibrillation. However, we are hesitant to initiate at this time due to anemia and h/o thrombocytopenia. Consider initiation of systemic AC if H/H stable, if no contraindications and if okay per hematology. Coumadin or NOAC could be considered. Will follow on as needed basis. The patient has been seen in conjunction with Dr. Hargrove who agrees with the assessment and plan of care. - Patient Problems (1) Paroxysmal atrial fibrillation Current Visit: Yes Status: Chronic (2) Sepsis Current Visit: Yes Status: Acute Qualifiers: Sepsis type: methicillin susceptible Staphylococcus aureus (3) MSSA bacteremia Current Visit: Yes Status: Acute (4) Pneumonia Current Visit: Yes Status: Acute Qualifiers: Pneumonia type: due to unspecified organism Laterality: unspecified laterality Lung location: unspecified part of lung Qualified Code(s): J18.9 - Pneumonia, unspecified organism (5) Septic embolism Current Visit: Yes Status: Acute (6) Anemia Current Visit: Yes Status: Acute (7) ESRD (end stage renal disease) Current Visit: Yes Status: Chronic (8) Hyperparathyroidism Current Visit: Yes Status: Chronic Subjective Date of service: 12/14/18 Principal diagnosis: anemia Interval history: pt resting in bed, no current cardiac complaints. In SR. Objective Last Vital Signs Temp 98.3 F 12/14/18 07:45 Pulse 66 12/14/18 08:49 Resp 18 12/14/18 07:45 BP 158/74 12/14/18 08:49 Pulse Ox 100 12/14/18 07:45 - Physical Examination General: No Apparent Distress HEENT: Positive: PERRL, Normocephaly, Mucus Membranes Moist Neck: Positive: neck supple, trachea midline Cardiac: Positive: Reg Rate and Rhythm, S1/S2 Lungs: Positive: Decreased Breath Sounds Neuro: Positive: Grossly Intact Abdomen: Negative: Tender Skin: Negative: Rash Musculoskeletal: other (knee pain) Extremities: Absent: edema - Imaging and Cardiology EKG: report reviewed, image reviewed Echo: report reviewed (TTE done 11/15/2018 showed EF 45-50%, RV mildly dilated, catheter in RA, trace MR, mild TR, trivial pericardial effusion - pt was noted to be in atrial fibrillation at the time of this echo, cardiology was not consulted.) - Allied health notes Allied health notes reviewed: nursing
--- NOTE | 2018-12-14 10:59 | Progress Note ---
Subjective Date of service: 12/14/18 Principal diagnosis: Debility, weakness, sepsis Interval history: 73-year-old male presented to the ER on November 11 with shortness of breath. He was noted to be febrile. Chest x-ray showed bilateral pneumonia and he was started on cefepime. He was noted to have purulent drainage from his dialysis catheter. It was removed and replaced. He developed altered mental status, MRI was negative. Infectious disease was consulted and started the patient on cefazolin which will be continued until 12/27/2018. His leukocytosis improved however he continued to spike occasional fevers even on antibiotics. Recommendation was made to obtain CT chest abdomen and pelvis which showed septic emboli in the bilateral lungs. SAMARIA was performed looking for cardiac vegetations but none were found. He remains fairly weak and will need continued close monitoring for antibiotic therapy, fevers and leukocytosis, end-stage renal disease and other possible worsening of condition. Patient is participating in therapy and making slow progress. Taking rest breaks as needed. Due to lack of progress we have discussed with patient and the possibility of referring him out for [facility] facility placement - referral has been made with acceptance of facility. At this point we are awaiting family and insurance. Patient is still having issues with constipation. We are continuing to use oral and rectal medications to alleviate the constipation. He is having bowel movements but does not feel like he is emptying completely. Patient is tolerating metoprolol for rate control. Blood cultures show no growth. Continues on antibiotics. Intermittent episodes of fever, none currently. Patient also continues to have pain in the right leg predominantly. Again as with last week, straight leg test is negative, mild tenderness to palpation at joints, negative Homans sign, no tenderness to palpation over the calf or thigh, no swelling of the legs suggestive of DVT, no rubor. No tenderness with range of motion. Patient does not describe neuropathic radicular symptoms. He describes a vague sense of squeezing in his right leg from the ankle to the thigh, denies numbness tingling burning electrical shocks. Very mild to no pain in the low back upon palpation. Patient is still asking for multiple imaging modalities and or to "chop my leg off". I have explained to him that absent any physical findings we cannot just take multiple images and there is no reason for him to have surgery. He does not appear to be in distress. I was later informed that [facility] has ordered an MRI of his spine concern for possible septic joint infection, will await results of imaging. Voltaren gel for his joints, short course of colchicine as this very well could be pseudogout related, and Lidoderm patch for his low back. Took the opportunity to review the recent CT abdomen chest and pelvis with the patient and showed him his large stool burden on the computer. Continue the bowel regimen to try to relieve some of this excess pressure. Per reports the patient did have a better therapy session on Friday after his daughter apparently had a strongly worded [id number] with him about participation. Unfortunately that did not carry through to today. Patient missed physical therapy due to bowel pain. We'll discharge patient once we have acceptance for [facility] facility. Denies palpitations, chest pain, cough, N/V. Tolerating dialysis well. All records, vitals, labs and medications were reviewed. No other issues per patient, nursing or therapy. Objective - Exam Narrative Exam: MUSCULOSKELETAL SPECIALTY EXAM CONSTITUTIONAL: Well developed, well nourished, appropriately groomed EENT: EOMI. Hearing intact to soft voice RESPIRATORY: Clear to auscultation bilaterally, no increased work of breathing, on O2 NC 2L CARDIOVASCULAR: RRR, no edema. All extremities warm. GI: + bowel sounds, somewhat firm, NTTP, distended. INTEGUMENTARY: Normal, no lesion, rash, masses or bruising noted in extremities. MUSCULOSKELETAL: Effusions at the bilateral wrists noted. No noted effusions on visual exam at the knees. There is some tenderness to range of motion of the wrist but no discrete tenderness to palpation as I would expect with a gout exacerbation. Slight tenderness to palpation at right hip. No TTP b/l knees. Mild/insignificant tenderness to palpation over lower back and SI joint area. Seated and supine straight leg raise negative bilaterally. No tenderness to palpation or squeeze at the calf, Stefania signs negative. No pain with range of motion. Bilateral hamstrings tight and some effort involved in order to get patient's legs to full extension. Otherwise, BUE and BLE normal without defect, crepitus, subluxation or TTP. BUE 4-/5, reduced ROM, with normal tone. BLE 4-/5 reduced ROM, with normal tone. NEURO: CN 2-12 grossly intact. Sensation intact in all extremities. Coordination slightly impaired in BUE. No tremor noted in 4 extremities. POSTURE and GAIT: Sitting posture impaired. Balance decreased. Gait slowed with rolling walker. PSYCH: Alert, oriented x3, affect appears flattened. Insight appears impaired at times. - Constitutional Vitals: Vital Signs - 12hr 12/14/18 12/14/18 12/14/18 00:10 01:14 03:46 Temperature 36.3 C L 36.6 C 36.8 C Pulse Rate 67 68 Respiratory 17 17 Rate Blood Pressure 155/78 164/72 O2 Sat by Pulse 96 99 Oximetry 12/14/18 12/14/18 12/14/18 07:45 08:48 08:49 Temperature 36.8 C Pulse Rate 66 66 66 Respiratory 18 Rate Blood Pressure 158/74 158/74 158/74 O2 Sat by Pulse 100 Oximetry - Allied health notes Allied health notes reviewed: nursing, PT, OT FIMS assessment as documented by PT/OT/ST: Social interaction/Memory/Problem solving Social Interaction FIM Score 4. Minimal Assistance (Interacts appropriately 75-90%.) Memory FIM Score 4. Minimal Assistance (Recognizes and remembers 75-90%.) Problem Solving FIM Score 4. Minimal Assistance (Solves routine problems 75-90%.) Transfers Mode of Locomotion: Wheelchair Bed/Chair/Wheelchair Transfers 3. Moderate Assistance (Patient = 50% or more. FIM Score Some lifting.) Locomotion- walk/wheelchair Most Frequent Mode of Wheelchair Locomotion: Ambulation Distance 15 Walking FIM Score 1. Total Assistance (Pt. < 25%, 2 or more person assist, or <50 ft.) Wheelchair Propulsion Distance 150 Wheelchair FIM Score 5. Supervision (Minimum 150 ft. supv./cues or 50 ft. independently.) Dressing-lower body Patient retrieves clothing No items: Lower Body Dressing FIM Score 2. Maximal Assistance (Patient = 25% or more) - Labs CBC & Chem 7: 12/15/18 07:59 12/11/18 08:29 Labs: Laboratory Results - last 72 hr 12/11/18 12/11/18 08:29 08:29 WBC 8.3 RBC 2.70 L Hgb 7.4 L Hct 22.5 L MCV 83 L MCH 27 L MCHC 33 RDW 17.2 H Plt Count 259 Sodium 135 L Potassium 3.4 L Chloride 94.2 L Carbon Dioxide 27 Anion Gap 17 BUN 14 Creatinine 4.1 H Estimated GFR 17 BUN/Creatinine Ratio 3 Glucose 88 Calcium 8.7 Assessment and Plan New onset atrial fibrillation: On rate control and telemetry per cardiology. Appreciate their assistance. Defer anticoagulation at this point due to anemia. PNA and Sepsis (MSSA) with persistent fevers on abx: cont cefazolin until 12/27/18. Monitor for any signs of worsening pneumonia and are leukocytosis. Expect to continue seeing the intermittent fevers and will treat with Tylenol as needed. Patient does have bilateral pulmonary septic emboli. SAMARIA did not show vegetations. Infectious disease also monitoring. Recent Blood cultures negative ESRD on HD: Continue hemodialysis per nephrology and renally dose medications including antibiotics. Hypertension: Continue medications, adjust as needed for normotension. Amlodipine added by cardiology. Anemia: Continue to monitor hemoglobin. Continue erythropoietin. Transfuse as needed. Improved to 7.6 after PRBC Thyroid nodule seen on CT: Recommend follow-up. Possible pseudogout - short course of treatment with colchicine. Due to current abx treatment for septic emboli, will avoid joint aspiration to reduce risk of further infection Z73.6 ADL dysfunction: OT will work on improving ability to perform ADLs (including assistive devices) to increase independence and decrease caregiver burden and improve functional transfers and mobility training. R26.2 Difficulty walking: PT will work on gait training and proper use of assistive devices and advance as appropriate to use of stairs and outside ambulation on uneven surfaces. R26.81 Unsteadiness on feet: PT will work on improving static and dynamic sitting and standing balance as well as proper use of assistive devices to decrease risk of falls. R26.89 Abnormality of gait: PT will work to improve safety and efficiency of gait through neuromotor training and gait training along with instruction on proper use of assistive devices. M62.81 Muscle weakness: PT & OT will work on strengthening exercises to improve functional strength including mixture of closed and open kinetic chain exercises. R53.81 Debility: PT & OT will work on improving overall functional status to improve participation with ADLs, mobility and social involvement. R53.83 Fatigue: PT & OT will work on improving endurance through aerobic exercises and therapeutic activity while monitoring patients tolerance for activity and vital signs as needed. K59.00 Constipation: Bisacodyl supp today. Dulcolax PO and miralax, sorbitol. KUB with moderate stool burden - no obstruction. Enema when necessary DVT ppx: SCDs, heparin Pain: Continue physical modalities in therapy and pain medications as needed to achieve functional pain control. Add voltaren, lidoderm. Toradol started by nephrology. Sleep: Monitor and address as needed. Bowel: Monitor and address as needed. Appetite: Monitor and address as needed. Discharge planning: Pending therapy progress and care plan meeting. Will continue discussion with therapy team, SW, patient and family. Restrictions/ Precautions: Falls WB status: FWB Functional Hx: ADLs: Independent Cognition: Independent Mobility: No AD Barriers to Discharge: Decreased mobility and ability to perform self care, balance deficits, weakness Estimated Length of Stay: 1418 days Discharge Destination: Home with family vs SNF
[2018-12-14] MEDS: DULCOLAX PR PRN (12:48)
[2018-12-14] MEDS: SORBITOL 70% PO PRN (12:48)
--- NOTE | 2018-12-14 13:47 | Progress Note ---
Assessment and Plan - Patient Problems (1) End stage renal disease Current Visit: No Status: Chronic Plan to address problem: Maintain on inpatient TTS HD schedule. (2) Sepsis Current Visit: Yes Status: Acute Qualifiers: Sepsis type: methicillin susceptible Staphylococcus aureus Plan to address problem: MSSA bactermia in setting of infected permcath with evidence of septic emboli on CT. S/P removal and replacement of permcath, with clearing of repeat blood cultures. TTE and SAMARIA noted without any evidence of vegetations. (3) Pneumonia Current Visit: Yes Status: Acute Qualifiers: Pneumonia type: due to unspecified organism Laterality: unspecified laterality Lung location: unspecified part of lung Qualified Code(s): J18.9 - Pneumonia, unspecified organism Plan to address problem: Improved, antibiotics per ID recommendations. (4) Secondary hyperparathyroidism (of renal origin) Current Visit: No Status: Chronic Plan to address problem: Continue home phos binder regimen. 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 chronic kidney disease or end stage renal disease Current Visit: No Status: Chronic Plan to address problem: Continue on current regimen. Subjective Date of service: 12/14/18 Principal diagnosis: anemia Interval history: No acute issues overnight. Objective - Vital Signs Vital signs: Vital Signs - 12hr 12/14/18 12/14/18 12/14/18 03:46 07:45 08:48 Temperature 98.3 F 98.3 F Pulse Rate 68 66 66 Respiratory 17 18 Rate Blood Pressure 164/72 158/74 158/74 O2 Sat by Pulse 99 100 Oximetry 12/14/18 12/14/18 08:49 11:27 Temperature 97.8 F Pulse Rate 66 64 Respiratory 18 Rate Blood Pressure 158/74 152/82 O2 Sat by Pulse 100 Oximetry - General Appearance General appearance: well-nourished, appears stated age EENT: ATNC, PERRL Neck: no JVD, no thyromegaly Respiratory: Present: Clear to Ascultation, Normal Exam Cardiology: regular, S1S2 Gastrointestinal: normal, normoactive bowel sounds Integumentary: no rash, warm and dry Neurologic: no focal deficit Psychiatric: mood/affect appropriate, cooperative - Lab 12/11/18 08:29 12/11/18 08:29 Most recent lab results Calcium 8.7 mg/dL (8.4-10.2) 12/11/18 08:29 Phosphorus 5.90 mg/dL (2.5-4.5) H 12/03/18 06:14 - Allied health notes Allied health notes reviewed: nursing Medications & Allergies - Medications Allergies/Adverse Reactions: Allergies No Known Allergies Allergy (Verified 08/27/18 16:19) Home Medications: Home Medications Medication Instructions Recorded Confirmed Last Taken Type Acetaminophen [Acetaminophen 650 mg [place] Q4H PRN supp.rect 11/26/18 12/02/1803/21 Rx SUPPOS] Docusate Sodium [Colace CAP] 100 mg PO BID capsule 11/26/18 12/02/18 12/01/18 Rx Epoetin Jeramy 10,000 Unit [Procrit] 10,000 unit IV TuThSa vial 11/26/18 12/02/18 12/01/18 Rx Polyethylene Glycol 3350 [Miralax 17 gm PO BID PRN powd.pack 11/26/18 12/02/18 12/01/18 Rx 3350] Sevelamer Carbonate [Renvela] 2,400 mg PO AC tablet 11/26/18 12/02/18 12/01/18 Rx oxyCODONE /ACETAMINOPHEN [Percocet 1 tab PO Q6H PRN tablet 11/26/18 12/02/18 12/01/18 Rx 5/325 mg] Active Medications: Generic Name Dose Route Start Last Admin Trade Name Freq PRN Reason Stop Dose Admin Acetaminophen 650 mg 12/01/18 11:36 12/04/18 13:21 Tylenol PO 650 mg Q6H PRN Administration Non Cardiac Pain or Temp>100.5 Amlodipine Besylate 5 mg 12/12/18 10:00 12/14/18 08:49 Norvasc PO 5 mg QDAY ISABELLA Administration Bisacodyl 10 mg 12/01/18 11:36 12/14/18 12:48 Dulcolax KS 10 mg QDAY PRN Administration Constipation Colchicine 0.6 mg 12/11/18 11:30 12/14/18 10:14 Colchicine PO 12/16/18 11:29 0.6 mg QDAY ISABELLA Administration Diclofenac Sodium 1 applic 12/11/18 14:00 12/14/18 08:51 Diclofenac 1% TP 1 applic TID ISABELLA Administration Epoetin Jeramy 10,000 unit 12/03/18 12:00 12/14/18 10:35 Procrit IV Not Given [facility] Heparin Sodium (Porcine) 5,000 unit 12/10/18 22:00 12/14/18 10:25 Heparin SUB-Q 5,000 unit Q12HR ISABELLA Administration Cefazolin Sodium 1 gm in 50 mls @ 100 mls/hr 12/02/18 18:00 12/13/18 18:00 Ancef/Ns 1 Gm/50 Ml IV 12/27/18 18:29 100 mls/hr QPM ISABELLA Administration Protocol Sodium Chloride 100 mls @ 999 mls/hr 12/02/18 09:33 Nacl 0.9% IV SISSY PRN Hypotension Ketorolac Tromethamine 15 mg 12/13/18 09:11 12/14/18 10:16 Toradol IV 12/18/18 09:10 15 mg Q8H PRN Administration Pain, Mild (1-3) Lidocaine 1 each 12/11/18 11:30 12/14/18 08:50 Lidoderm 5% TD 1 each QDAY ISABELLA Administration Metoprolol Tartrate 100 mg 12/11/18 14:00 12/14/18 08:48 Lopressor PO 100 mg TID ISABELLA Administration Ondansetron HCl 4 mg 12/01/18 11:36 12/08/18 05:29 Zofran Odt PO 4 mg Q8H PRN Administration Nausea And Vomiting Oxycodone/Acetaminophen 1 tab 12/01/18 11:37 12/13/18 09:09 Percocet 5/325 PO 1 tab Q6H PRN Administration Pain, Moderate (4-6) Polyethylene Glycol 17 gm 12/02/18 08:00 12/14/18 08:53 Miralax 3350 PO 17 gm QDAY ISABELLA Administration Sevelamer Carbonate 2,400 mg 12/01/18 18:30 12/14/18 12:48 Renvela PO 2,400 mg AC ISABELLA Administration Sodium Chloride 10 ml 12/01/18 11:37 Sodium Chloride Flush Syringe 10 Ml IV PRN PRN LINE FLUSH Sorbitol 30 ml 12/07/18 11:00 12/14/18 12:48 Sorbitol 70% PO 30 ml PRN PRN Administration Constipation
--- NOTE | 2018-12-14 14:10 | Progress Note ---
Assessment and Plan 73 yo M PMHx HTN, ESRD on HD, hyperparathyroidism, OA admitted with vascular catheter infection. 1. MSSA bacteremia secondary to Vascular catheter infection: catheter removed. Repeat blood cultures from 11/15/2018 negative. Got new HD cath placed. TTE unremarkable for any vegetations. Intermittent fevers continues felt to be septic emboli or gouty attack. CT chest abdomen and pelvis shows bilateral pulmonary septic emboli, no abdominal abscess. SAMARIA no vegetations. 2. Persistent fever: ? from septic emboli or gouty attack. History of madelyn wrist gout. Fever resolved. 3. Lower back pain with radicular pain: given his MSSA bacteremia history with septic emboli, would recommend checking spine MRI to eval for seeding. Recs: - MRI T and L spine ordered given back pain with radicular pain in the setting of MSSA bacteremia history. - continue Cefazolin IV 1 gm daily qpm while inpatient here and upon discharge 2 gm post HD for total 6 weeks ending 12/27/2018 D/W Dr. Trevor Braun MD, FACP [facility], [place], [facility] ([facility] M: [phone] O: [phone] F: [phone] Subjective Date of service: 12/14/18 Principal diagnosis: anemia Interval history: No fever. Complaining of lower back pain with radiation down to the right buttock, knee and leg. No other complaints. Objective - Exam Narrative Exam: Constitutional: awake, alert, no distress. Head, Ears, Nose: Normocephalic, atraumatic. External ears, nose normal Eyes: Conjunctivae/corneas clear. No icterus. No ptosis. Neck: Supple, no meningeal signs Cardiovascular: S1, S2 normal. Respiratory: Good air entry, clear to auscultation bilaterally GI: Soft, non-tender; bowel sounds normal. No peritoneal signs Musculoskeletal: No pedal edema, no cyanosis. HD cath + Skin: No rash or abscess Hem/Lymphatic: No palpable cervical or supraclavicular nodes. No lymphangitis Psych: no agitation Neurological: awake, alert, oriented - Constitutional Vitals: Vital Signs Temp Pulse Resp BP Pulse Ox 97.8 F 64 18 152/82 100 12/14/18 11:27 12/14/18 11:27 12/14/18 11:27 12/14/18 11:27 12/14/18 11:27 Temperature -Last 24 Hours Temperature 97.8 F Temperature 98.3 F Temperature 98.3 F Temperature 97.8 F Temperature 97.4 F Temperature 98.5 F Temperature 98.7 F Temperature 98.7 F - Labs CBC & Chem 7: 12/11/18 08:29 12/11/18 08:29
[2018-12-14] MEDS: ANCEF/NS 1 GM/50 ML 1 GM/50 ML BAG IV SCH (18:04)
[2018-12-14] MEDS: PERCOCET 5/325 PO PRN (21:38)
[2018-12-14] MEDS: ZOFRAN ODT PO PRN (21:38)
[2018-12-15 00:42] LABS: Hepatitis B Surface Antigen Non-Reactive (Negative); Hepatitis C Virus Antibody Non-Reactive (NonReactive)
[2018-12-15] MEDS: TORADOL IV PRN ×2 (01:20→10:37)
--- NOTE | 2018-12-15 07:19 | Hem/Onc Progress Note ---
Assessment and Plan 1. Based on CT finding, it is septic emboli and not a thrombotic event. Anticoagulation is less likely to be helpful. 2. Anemia of chronic kidney disease, may have a role. This also can be multifactorial. We will follow 3. History of leukocytosis. 4. History of high PTH. 5. End-stage renal disease, on dialysis. 6. History of fever. 7. Fever issues. 8. Antibiotic and physical Therapy. 9. History of hypertension. 10. Pt has Permacath for dialysis issues. I will follow the patient during the inpatient stay and then in the clinic setting. Abx as per ID b12 - folate - iron ferritin WNL seen by ID ESRD pts get epo and iv iron with HD 12/15 s/p PRBC - hb 7.4 joint pain - rehab following ID planning antibiotics labs cbc today - Patient Problems (1) Septic embolism Current Visit: Yes Status: Acute Subjective Date of service: 12/15/18 Principal diagnosis: anemia Interval history: no bleeding Objective - Exam Narrative Exam: Pain - none General appearance - awake Performance status limited self care Eyes - no icterus ENT - no bleeding LNs cervical not palpable Neck - no LN Respiratory Normal Breath sounds - CTA anteriorly CVS S1 S2 + Extremities no calf tenderness General GI Soft Rectal deferred male - deferred Skin warm Musculoskeletal moving extremitites Neurologically awake - Constitutional Vitals: Last Vital Signs Temp 97.5 F L 12/15/18 05:34 Pulse 65 12/15/18 05:34 Resp 16 12/15/18 05:34 BP 170/79 12/15/18 05:34 Pulse Ox 95 12/15/18 05:34 - Labs Lab Results: Laboratory Results - last 24 hr 12/14/18 23:34 Hepatitis A IgM Ab Non-reactive Hep Bs Antigen Non-reactive Hep B Core IgM Ab Non-reactive Hepatitis C Antibody Non-reactive Medications & Allergies - Medications Allergies/Adverse Reactions: Allergies No Known Allergies Allergy (Verified 08/27/18 16:19) Home Medications: Home Medications Medication Instructions Recorded Confirmed Last Taken Type Acetaminophen [Acetaminophen 650 mg [place] Q4H PRN supp.rect 11/26/18 12/02/18 12/01/18 Rx SUPPOS] Docusate Sodium [Colace CAP] 100 mg PO BID capsule 11/26/18 12/02/18 12/01/18 Rx Epoetin Jeramy 10,000 Unit [Procrit] 10,000 unit IV TuThSa vial 11/26/18 12/02/18 12/01/18 Rx Polyethylene Glycol 3350 [Miralax 17 gm PO BID PRN powd.pack 11/26/18 12/02/18 12/01/18 Rx 3350] Sevelamer Carbonate [Renvela] 2,400 mg PO AC tablet 11/26/18 12/02/18 12/01/18 Rx oxyCODONE /ACETAMINOPHEN [Percocet 1 tab PO Q6H PRN tablet 11/26/18 12/02/18 12/01/18 Rx 5/325 mg] Active Medications: Generic Name Dose Route Start Last Admin Trade Name Freq PRN Reason Stop Dose Admin Acetaminophen 650 mg 12/01/18 11:36 12/04/18 13:21 Tylenol PO 650 mg Q6H PRN Administration Non Cardiac Pain or Temp>100.5 Amlodipine Besylate 5 mg 12/12/18 10:00 12/14/18 08:49 Norvasc PO 5 mg QDAY ISABELLA Administration Bisacodyl 10 mg 12/01/18 11:36 12/14/18 12:48 Dulcolax [place] 10 mg QDAY PRN Administration Constipation Colchicine 0.6 mg 12/11/18 11:30 12/14/18 10:14 Colchicine PO 12/16/18 11:29 0.6 mg QDAY [facility] Administration Diclofenac Sodium 1 applic 12/11/18 14:00 12/14/18 21:42 Diclofenac 1% TP 1 applic TID ISABELLA Administration Epoetin Jeramy 10,000 unit 12/03/18 12:00 12/14/18 10:35 Procrit IV Not Given [facility] Heparin Sodium (Porcine) 5,000 unit 12/10/18 22:00 12/14/18 22:50 Heparin SUB-Q 5,000 unit Q12HR ISABELLA Administration Cefazolin Sodium 1 gm in 50 mls @ 100 mls/hr 12/02/18 18:00 12/14/18 18:04 Ancef/Ns 1 Gm/50 Ml IV 12/27/18 18:29 100 mls/hr QPM ISABELLA Administration Protocol Sodium Chloride 100 mls @ 999 mls/hr 12/02/18 09:33 Nacl 0.9% IV SISSY PRN Hypotension Ketorolac Tromethamine 15 mg 12/13/18 09:11 12/15/18 01:20 Toradol IV 12/18/18 09:10 15 mg Q8H PRN Administration Pain, Mild (1-3) Lidocaine 1 each 12/11/18 11:30 12/14/18 08:50 Lidoderm 5% TD 1 each QDAY ISABELLA Administration Metoprolol Tartrate 100 mg 12/11/18 14:00 12/14/18 21:38 Lopressor PO 100 mg TID ISABELLA Administration Ondansetron HCl 4 mg 12/01/18 11:36 12/14/18 21:38 Zofran Odt PO 4 mg Q8H PRN Administration Nausea And Vomiting Oxycodone/Acetaminophen 1 tab 12/01/18 11:37 12/14/18 21:38 Percocet 5/325 PO 1 tab Q6H PRN Administration Pain, Moderate (4-6) Polyethylene Glycol 17 gm 12/02/18 08:00 12/14/18 08:53 Miralax 3350 PO 17 gm QDAY ISABELLA Administration Sevelamer Carbonate 2,400 mg 12/01/18 18:30 12/14/18 16:52 Renvela PO 2,400 mg AC ISABELLA Administration Sodium Chloride 10 ml 12/01/18 11:37 Sodium Chloride Flush Syringe 10 Ml IV PRN PRN LINE FLUSH Sorbitol 30 ml 12/07/18 11:00 12/14/18 12:48 Sorbitol 70% PO 30 ml PRN PRN Administration Constipation
[2018-12-15] MEDS: RENVELA PO SCH ×3 (08:22→19:00)
[2018-12-15] MEDS: LOPRESSOR PO SCH ×3 (08:23→22:46)
[2018-12-15] MEDS: NORVASC PO SCH (08:23)
[2018-12-15] MEDS: LIDODERM 5% TD SCH (08:24)
[2018-12-15] MEDS: MIRALAX 3350 PO SCH (08:29)
[2018-12-15] MEDS: DICLOFENAC 1% TP SCH ×3 (08:29→22:37)
[2018-12-15 08:42] LABS: Basophils % (Auto) 0.4 % (0.0-1.8); Eosinophils % (Auto) 0.7 % (0.0-4.3); Hematocrit 27.2 % (35.5-45.6); Lymphocytes % (Auto) 19.5 % (13.4-35.0); Mean Corpuscular HGB Conc 33 % (32-34); Mean Corpuscular Volume 84 fl (84-94); Platelet Count 241 K/mm3 (140-440); Red Blood Count 3.25 M/mm3 (3.65-5.03)
[2018-12-15 08:43] LABS: Eosinophils # (Auto) 0.1 K/mm3 (0.0-0.4); Lymphocytes # (Auto) 1.8 K/mm3 (1.2-5.4); Monocytes # (Auto) 1.2 K/mm3 (0.0-0.8)
[2018-12-15] MEDS ORDERED: FLEET PR PRN (08:58)
[2018-12-15] MEDS: COLCHICINE PO SCH (09:07)
--- NOTE | 2018-12-15 09:10 | Progress Note ---
Assessment and Plan - Patient Problems (1) End stage renal disease Current Visit: No Status: Chronic Plan to address problem: Maintain on inpatient TTS HD schedule. (2) Sepsis Current Visit: Yes Status: Acute Plan to address problem: MSSA bactermia in setting of infected permcath with evidence of septic emboli on CT. S/P removal and replacement of permcath, with clearing of repeat blood cultures. TTE and SAMARIA noted without any evidence of vegetations. (3) Pneumonia Current Visit: Yes Status: Acute Qualifiers: Qualified Code(s): J18.9 - Pneumonia, unspecified organism Plan to address problem: Improved, antibiotics per ID recommendations. (4) Secondary hyperparathyroidism (of renal origin) Current Visit: No Status: Chronic Plan to address problem: Continue home phos binder regimen. 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 chronic kidney disease or end stage renal disease Current Visit: No Status: Chronic Plan to address problem: Continue on current regimen. Subjective Date of service: 12/15/18 Principal diagnosis: anemia Interval history: No acute issues this am, resting in bed. Plan for HD today. Objective - Vital Signs Vital signs: Vital Signs - 12hr 12/15/18 12/15/18 12/15/18 05:24 05:34 07:18 Temperature 97.5 F L 98.0 F Pulse Rate 66 65 63 Respiratory 16 18 Rate Blood Pressure 143/73 Blood Pressure 170/79 [Left] O2 Sat by Pulse 97 95 100 Oximetry 12/15/18 08:23 Temperature Pulse Rate 63 Respiratory Rate Blood Pressure 143/73 Blood Pressure [Left] O2 Sat by Pulse Oximetry - General Appearance General appearance: well-developed, well-nourished, appears stated age EENT: ATNC, PERRL Neck: no JVD, no thyromegaly Respiratory: Present: Clear to Ascultation Cardiology: regular, S1S2 Gastrointestinal: normal, normoactive bowel sounds Integumentary: no rash, warm and dry Neurologic: no focal deficit Psychiatric: mood/affect appropriate - Lab 12/15/18 07:59 12/11/18 08:29 Most recent lab results Calcium 8.7 mg/dL (8.4-10.2) 12/11/18 08:29 Phosphorus 5.90 mg/dL (2.5-4.5) H 12/03/18 06:14 - Allied health notes Allied health notes reviewed: nursing Medications & Allergies - Medications Allergies/Adverse Reactions: Allergies No Known Allergies Allergy (Verified 08/27/18 16:19) Home Medications: Home Medications Medication Instructions Recorded Confirmed Last Taken Type Acetaminophen [Acetaminophen 650 mg OK Q4H PRN supp.rect 11/26/18 12/02/18 12/01/18 Rx SUPPOS] Docusate Sodium [Colace CAP] 100 mg PO BID capsule 11/26/18 12/02/18 12/01/18 Rx Epoetin Jeramy 10,000 Unit [Procrit] 10,000 unit IV TuThSa vial 11/26/18 12/02/18 12/01/18 Rx Polyethylene Glycol 3350 [Miralax 17 gm PO BID PRN powd.pack 11/26/18 12/02/18 12/01/18 Rx 3350] Sevelamer Carbonate [Renvela] 2,400 mg PO AC tablet 11/26/18 12/02/18 12/01/18 Rx oxyCODONE /ACETAMINOPHEN [Percocet 1 tab PO Q6H PRN tablet 11/26/18 12/02/18 12/01/18 Rx 5/325 mg] Active Medications: Generic Name Dose Route Start Last Admin Trade Name Freq PRN Reason Stop Dose Admin Acetaminophen 650 mg 12/01/18 11:36 12/04/18 13:21 Tylenol PO 650 mg Q6H PRN Administration Non Cardiac Pain or Temp>100.5 Amlodipine Besylate 5 mg 12/12/18 10:00 12/15/18 08:23 Norvasc PO 5 mg QDAY ISABELLA Administration Bisacodyl 10 mg 12/01/18 11:36 12/14/18 12:48 Dulcolax OK 10 mg QDAY PRN Administration Constipation Colchicine 0.6 mg 12/11/18 11:30 12/15/18 09:07 Colchicine PO 12/16/18 11:29 0.6 mg QDAY ISABLELA Administration Diclofenac Sodium 1 applic 12/11/18 14:00 12/15/18 08:29 Diclofenac 1% TP 1 applic TID ISABELLA Administration Epoetin Jeramy 10,000 unit 12/03/18 12:00 12/14/18 10:35 Procrit IV Not Given [facility] Heparin Sodium (Porcine) 5,000 unit 12/10/18 22:00 12/14/18 22:50 Heparin SUB-Q 5,000 unit Q12HR ISABELLA Administration Cefazolin Sodium 1 gm in 50 mls @ 100 mls/hr 12/02/18 18:00 12/14/18 18:04 Ancef/Ns 1 Gm/50 Ml IV 12/27/18 18:29 100 mls/hr QPM ISABELLA Administration Protocol Sodium Chloride 100 mls @ 999 mls/hr 12/02/18 09:33 Nacl 0.9% IV SISSY PRN Hypotension Ketorolac Tromethamine 15 mg 12/13/18 09:11 12/15/18 01:20 Toradol IV 12/18/18 09:10 15 mg Q8H PRN Administration Pain, Mild (1-3) Lidocaine 1 each 12/11/18 11:30 12/15/18 08:24 Lidoderm 5% TD 1 each QDAY ISABELLA Administration Metoprolol Tartrate 100 mg 12/11/18 14:00 12/15/18 08:23 Lopressor PO 100 mg TID ISABELLA Administration Ondansetron HCl 4 mg 12/01/18 11:36 12/14/18 21:38 Zofran Odt PO 4 mg Q8H PRN Administration Nausea And Vomiting Oxycodone/Acetaminophen 1 tab 12/01/18 11:37 12/14/18 21:38 Percocet 5/325 PO 1 tab Q6H PRN Administration Pain, Moderate (4-6) Polyethylene Glycol 17 gm 12/02/18 08:00 12/15/18 08:29 Miralax 3350 PO 17 gm QDAY ISABELLA Administration Sevelamer Carbonate 2,400 mg 12/01/18 18:30 12/15/18 08:22 Renvela PO 2,400 mg AC ISABELLA Administration Sodium Biphosphate/Sodium Phosphate 133 ml 12/15/18 08:58 Fleet OK QDAY PRN Bowel Movement Sodium Chloride 10 ml 12/01/18 11:37 Sodium Chloride Flush Syringe 10 Ml IV PRN PRN LINE FLUSH Sorbitol 30 ml 12/07/18 11:00 12/14/18 12:48 Sorbitol 70% PO 30 ml PRN PRN Administration Constipation
--- NOTE | 2018-12-15 09:32 | Progress Note ---
Subjective Date of service: 12/15/18 Principal diagnosis: Debility, weakness, sepsis Interval history: 73-year-old male presented to the ER on November 11 with shortness of breath. He was noted to be febrile. Chest x-ray showed bilateral pneumonia and he was started on cefepime. He was noted to have purulent drainage from his dialysis catheter. It was removed and replaced. He developed altered mental status, MRI was negative. Infectious disease was consulted and started the patient on cefazolin which will be continued until 12/27/2018. His leukocytosis improved however he continued to spike occasional fevers even on antibiotics. Recommendation was made to obtain CT chest abdomen and pelvis which showed septic emboli in the bilateral lungs. SAMARIA was performed looking for cardiac vegetations but none were found. He remains fairly weak and will need continued close monitoring for antibiotic therapy, fevers and leukocytosis, end-stage renal disease and other possible worsening of condition. Patient is participating in therapy and making slow progress. Taking rest breaks as needed. Due to lack of progress we have discussed with patient and the possibility of referring him out for snf facility placement - referral has been made with acceptance of facility. At this point we are awaiting family and insurance. director personal had a conversation with the family and they have changed her mind to state that he will be coming home and they are attempting to figure out how to give him the care he needs at home. Patient is still having issues with constipation. We are continuing to use oral and rectal medications to alleviate the constipation. He is having bowel movements but does not feel like he is emptying completely. Nursing states the bowel movements have been pasty. Based on her results as well as previous imaging feel like the stool burden and the upper rectum/lower colon is likely causing his pain and blocking stool output. I was previously told that we did not have soapsuds enemas are other nontraditional older style enemas however we do have soapsuds available with an extended tube and will attempt this today after dialysis. Patient is tolerating metoprolol for rate control. Blood cultures show no growth. Continues on antibiotics. Intermittent episodes of fever, none currently. Patient did not complain of excessive pain today as he has the past couple of days. MRI ordered by ID has not been performed yet, will await those results. Denies palpitations, chest pain, cough, N/V. Tolerating dialysis well. All records, vitals, labs and medications were reviewed. No other issues per patient, nursing or therapy. Objective - Exam Narrative Exam: MUSCULOSKELETAL SPECIALTY EXAM CONSTITUTIONAL: Well developed, well nourished, appropriately groomed EENT: EOMI. Hearing intact to soft voice RESPIRATORY: Clear to auscultation bilaterally, no increased work of breathing CARDIOVASCULAR: RRR, no edema. All extremities warm. GI: + bowel sounds, somewhat firm, NTTP, distended. INTEGUMENTARY: Normal, no lesion, rash, masses or bruising noted in extremities. MUSCULOSKELETAL: Effusions at the bilateral wrists noted. No noted effusions on visual exam at the knees. There is some tenderness to range of motion of the wrist but no discrete tenderness to palpation as I would expect with a gout exacerbation. Slight tenderness to palpation at right hip. No TTP b/l knees. Mild/insignificant tenderness to palpation over lower back and SI joint area. Seated and supine straight leg raise negative bilaterally. No tenderness to palpation or squeeze at the calf, Stefania signs negative. No pain with range of motion. Bilateral hamstrings tight and some effort involved in order to get patient's legs to full extension. Otherwise, BUE and BLE normal without defect, crepitus, subluxation or TTP. BUE 4-/5, reduced ROM, with normal tone. BLE 4-/5 reduced ROM, with normal tone. NEURO: CN 2-12 grossly intact. Sensation intact in all extremities. Coordination slightly impaired in BUE. No tremor noted in 4 extremities. POSTURE and GAIT: Sitting posture impaired. Balance decreased. Gait slowed with rolling walker. PSYCH: Alert, oriented x3, affect appears flattened. Insight appears impaired at times. - Constitutional Vitals: Vital Signs - 12hr 12/15/18 12/15/18 12/15/18 05:24 05:34 07:18 Temperature 36.4 C L 36.7 C Pulse Rate 66 65 63 Respiratory 16 18 Rate Blood Pressure 143/73 Blood Pressure 170/79 [Left] O2 Sat by Pulse 97 95 100 Oximetry 12/15/18 08:23 Temperature Pulse Rate 63 Respiratory Rate Blood Pressure 143/73 Blood Pressure [Left] O2 Sat by Pulse Oximetry - Allied health notes Allied health notes reviewed: nursing, PT, OT FIMS assessment as documented by PT/OT/ST: Social interaction/Memory/Problem solving Social Interaction FIM Score 4. Minimal Assistance (Interacts appropriately 75-90%.) Memory FIM Score 4. Minimal Assistance (Recognizes and remembers 75-90%.) Problem Solving FIM Score 4. Minimal Assistance (Solves routine problems 75-90%.) Transfers Mode of Locomotion: Wheelchair Bed/Chair/Wheelchair Transfers 3. Moderate Assistance (Patient = 50% or more. FIM Score Some lifting.) Locomotion- walk/wheelchair Most Frequent Mode of Wheelchair Locomotion: Ambulation Distance 15 Walking FIM Score 1. Total Assistance (Pt. < 25%, 2 or more person assist, or <50 ft.) Wheelchair Propulsion Distance 150 Wheelchair FIM Score 5. Supervision (Minimum 150 ft. supv./cues or 50 ft. independently.) Dressing-lower body Patient retrieves clothing No items: Lower Body Dressing FIM Score 2. Maximal Assistance (Patient = 25% or more) - Labs CBC & Chem 7: 12/15/18 07:59 12/11/18 08:29 Labs: Laboratory Results - last 72 hr 12/14/18 12/15/18 23:34 07:59 WBC 9.2 RBC 3.25 L Hgb 9.0 L Hct 27.2 L MCV 84 MCH 28 MCHC 33 RDW 17.0 H Plt Count 241 Lymph % (Auto) 19.5 [place] % (Auto) 13.0 H Eos % (Auto) 0.7 Baso % (Auto) 0.4 Lymph # 1.8 [place] # 1.2 H Eos # 0.1 Baso # 0.0 Seg Neutrophils % 66.4 Seg Neutrophils # 6.1 Hepatitis A IgM Ab Non-reactive Hep Bs Antigen Non-reactive Hep B Core IgM Ab Non-reactive Hepatitis C Antibody Non-reactive Assessment and Plan New onset atrial fibrillation: On rate control and telemetry per cardiology. Appreciate their assistance. Defer anticoagulation at this point due to anemia. PNA and Sepsis (MSSA) with persistent fevers on abx: cont cefazolin until 12/27/18. Monitor for any signs of worsening pneumonia and are leukocytosis. Expect to continue seeing the intermittent fevers and will treat with Tylenol as needed. Patient does have bilateral pulmonary septic emboli. SAMARIA did not show vegetations. Infectious disease also monitoring. Recent Blood cultures negative ESRD on HD: Continue hemodialysis per nephrology and renally dose medications including antibiotics. Hypertension: Continue medications, adjust as needed for normotension. Amlodipine added by cardiology. Anemia: Continue to monitor hemoglobin. Continue erythropoietin. Transfuse as needed. Improved to 7.6 after PRBC Thyroid nodule seen on CT: Recommend follow-up. Possible pseudogout - short course of treatment with colchicine. Due to current abx treatment for septic emboli, will avoid joint aspiration to reduce risk of further infection Z73.6 ADL dysfunction: OT will work on improving ability to perform ADLs (including assistive devices) to increase independence and decrease caregiver burden and improve functional transfers and mobility training. R26.2 Difficulty walking: PT will work on gait training and proper use of assistive devices and advance as appropriate to use of stairs and outside ambulation on uneven surfaces. R26.81 Unsteadiness on feet: PT will work on improving static and dynamic sitting and standing balance as well as proper use of assistive devices to decrease risk of falls. R26.89 Abnormality of gait: PT will work to improve safety and efficiency of gait through neuromotor training and gait training along with instruction on proper use of assistive devices. M62.81 Muscle weakness: PT & OT will work on strengthening exercises to improve functional strength including mixture of closed and open kinetic chain exercises. R53.81 Debility: PT & OT will work on improving overall functional status to improve participation with ADLs, mobility and social involvement. R53.83 Fatigue: PT & OT will work on improving endurance through aerobic exercises and therapeutic activity while monitoring patients tolerance for activity and vital signs as needed. K59.00 Constipation: Bisacodyl supp today. Dulcolax PO and miralax, sorbitol. KUB with moderate stool burden - no obstruction. Enema when necessary. Soapsuds enema today DVT ppx: SCDs, heparin Pain: Continue physical modalities in therapy and pain medications as needed to achieve functional pain control. Add voltaren, lidoderm. Toradol started by nephrology. Sleep: Monitor and address as needed. Bowel: Monitor and address as needed. Appetite: Monitor and address as needed. Discharge planning: Pending therapy progress and care plan meeting. Will continue discussion with therapy team, SW, patient and family. Restrictions/ Precautions: Falls WB status: FWB Functional Hx: ADLs: Independent Cognition: Independent Mobility: No AD Barriers to Discharge: Decreased mobility and ability to perform self care, balance deficits, weakness Estimated Length of Stay: 1418 days Discharge Destination: Home with family vs SNF
[2018-12-15] MEDS: HEPARIN SUB-Q SCH ×2 (10:40→22:46)
--- NOTE | 2018-12-15 14:55 | Progress Note ---
Assessment and Plan 73 yo M PMHx HTN, ESRD on HD, hyperparathyroidism, OA admitted with vascular catheter infection. 1. MSSA bacteremia secondary to Vascular catheter infection: catheter removed. Repeat blood cultures from 11/15/2018 negative. Got new HD cath placed. TTE unremarkable for any vegetations. Intermittent fevers continues felt to be septic emboli or gouty attack. CT chest abdomen and pelvis shows bilateral pulmonary septic emboli, no abdominal abscess. SAMARIA no vegetations. 2. Persistent fever: ? from septic emboli or gouty attack. History of madelyn wrist gout. Fever resolved. 3. Lower back pain with R leg pain: given his MSSA bacteremia history with septic emboli, would recommend checking spine MRI to eval for seeding. Recs: - MRI T and L spine still pending - continue Cefazolin IV 1 gm daily qpm while inpatient here and upon discharge 2 gm post HD for total 6 weeks ending 12/27/2018 Belinda Braun MD, FACP [facility] ([facility]) M: [phone] O: [phone] F: [phone] Subjective Date of service: 12/15/18 Principal diagnosis: Debility, weakness, sepsis Interval history: No fever. States that he is awaiting dialysis today. Pain still present, MRI is pending. Objective - Exam Narrative Exam: Constitutional: awake, alert, no distress. Head, Ears, Nose: Normocephalic, atraumatic. External ears, nose normal Eyes: Conjunctivae/corneas clear. No icterus. No ptosis. Neck: Supple, no meningeal signs Cardiovascular: S1, S2 normal. Respiratory: Good air entry, clear to auscultation bilaterally GI: Soft, non-tender; bowel sounds normal. No peritoneal signs Musculoskeletal: No pedal edema, no cyanosis. HD cath + Skin: No rash or abscess Hem/Lymphatic: No palpable cervical or supraclavicular nodes. No lymphangitis Psych: no agitation Neurological: awake, alert, oriented - Constitutional Vitals: Vital Signs Temp Pulse Resp BP Pulse Ox 97.8 F 66 18 139/67 93 12/15/18 12:23 12/15/18 14:03 12/15/18 12:23 12/15/18 14:03 12/15/18 12:23 Temperature -Last 24 Hours Temperature 97.8 F Temperature 98.0 F Temperature 97.5 F Temperature 97.8 F - Labs CBC & Chem 7: 12/15/18 07:59 12/11/18 08:29 Labs: Abnormal lab results 12/15/18 Range/Units 07:59 RBC 3.25 L (3.65-5.03) M/mm3 Hgb 9.0 L (11.8-15.2) gm/dl Hct 27.2 L (35.5-45.6) % RDW 17.0 H (13.2-15.2) % [place] % (Auto) 13.0 H (0.0-7.3) % [place] # 1.2 H (0.0-0.8) K/mm3
[2018-12-15] MEDS ORDERED: NACL 0.9 (PRIMING MACHINE ONLY DIALYSIS) MC ONE (17:16)
[2018-12-15] MEDS: PERCOCET 5/325 PO PRN (20:47)
[2018-12-15] MEDS: PROCRIT IV SCH ×2 (20:53→23:50)
[2018-12-15] MEDS: ANCEF/NS 1 GM/50 ML 1 GM/50 ML BAG IV SCH (21:52)
[2018-12-16] MEDS: PERCOCET 5/325 PO PRN ×3 (06:08→20:47)
--- NOTE | 2018-12-16 07:20 | Hem/Onc Progress Note ---
Assessment and Plan 1. Based on CT finding, it is septic emboli and not a thrombotic event. Anticoagulation is less likely to be helpful. 2. Anemia of chronic kidney disease, may have a role. This also can be multifactorial. We will follow 3. History of leukocytosis. 4. History of high PTH. 5. End-stage renal disease, on dialysis. 6. History of fever. 7. Fever issues. 8. Antibiotic and physical Therapy. 9. History of hypertension. 10. Pt has Permacath for dialysis issues. I will follow the patient during the inpatient stay and then in the clinic setting. Abx as per ID b12 - folate - iron ferritin WNL seen by ID ESRD pts get epo and iv iron with HD 12/16 s/p PRBC - hb better joint pain - rehab following ID - antibiotics as per info - senior care eval - Patient Problems (1) Septic embolism Current Visit: Yes Status: Acute Subjective Date of service: 12/16/18 Principal diagnosis: anemia Interval history: more awake - no bleeding Objective - Exam Narrative Exam: Pain - none General appearance - awake Performance status limited self care Eyes - no icterus ENT - no bleeding LNs cervical not palpable Neck - no LN Respiratory Normal Breath sounds - CTA anteriorly CVS S1 S2 + Extremities no calf tenderness General GI Soft Rectal deferred male - deferred Skin warm Musculoskeletal moving extremitites Neurologically awake - Constitutional Vitals: Last Vital Signs Temp 98.3 F 12/16/18 04:13 Pulse 67 12/16/18 06:34 Resp 20 12/16/18 06:34 BP 165/76 12/16/18 06:34 Pulse Ox 100 12/16/18 06:02 - Labs Lab Results: Laboratory Results - last 24 hr 12/15/18 07:59 WBC 9.2 RBC 3.25 L Hgb 9.0 L Hct 27.2 L MCV 84 MCH 28 MCHC 33 RDW 17.0 H Plt Count 241 Lymph % (Auto) 19.5 [place] % (Auto) 13.0 H Eos % (Auto) 0.7 Baso % (Auto) 0.4 Lymph # 1.8 [place] # 1.2 H Eos # 0.1 Baso # 0.0 Seg Neutrophils % 66.4 Seg Neutrophils # 6.1 Medications & Allergies - Medications Allergies/Adverse Reactions: Allergies No Known Allergies Allergy (Verified 08/27/18 16:19) Home Medications: Home Medications Medication Instructions Recorded Confirmed Last Taken Type Acetaminophen [Acetaminophen 650 mg NM Q4H PRN supp.rect 11/26/18 12/02/18 12/01/18 Rx SUPPOS] Docusate Sodium [Colace CAP] 100 mg PO BID capsule 11/26/18 12/02/18 12/01/18 Rx Epoetin Jeramy 10,000 Unit [Procrit] 10,000 unit IV TuThSa vial 11/26/18 12/02/18 12/01/18 Rx Polyethylene Glycol 3350 [Miralax 17 gm PO BID PRN powd.pack 11/26/18 12/02/18 12/01/18 Rx 3350] Sevelamer Carbonate [Renvela] 2,400 mg PO AC tablet 11/26/18 12/02/18 12/01/18 Rx oxyCODONE /ACETAMINOPHEN [Percocet 1 tab PO Q6H PRN tablet 11/26/18 12/02/18 12/01/18 Rx 5/325 mg] Active Medications: Generic Name Dose Route Start Last Admin Trade Name Freq PRN Reason Stop Dose Admin Acetaminophen 650 mg 12/01/18 11:36 12/04/18 13:21 Tylenol PO 650 mg Q6H PRN Administration Non Cardiac Pain or Temp>100.5 Amlodipine Besylate 7.5 mg 12/16/18 08:00 Norvasc PO QDAY [facility] Bisacodyl 10 mg 12/01/18 11:36 12/14/18 12:48 Dulcolax NM 10 mg QDAY PRN Administration Constipation Colchicine 0.6 mg 12/11/18 11:30 12/15/18 09:07 Colchicine PO 12/16/18 11:29 0.6 mg QDAY ISABELLA Administration Diclofenac Sodium 1 applic 12/11/18 14:00 12/15/18 22:37 Diclofenac 1% TP 1 applic TID ISABELLA Administration Epoetin Jeramy 10,000 unit 12/03/18 12:00 12/15/18 23:50 Procrit IV Not Given [facility] Heparin Sodium (Porcine) 5,000 unit 12/10/18 22:00 12/15/18 22:46 Heparin SUB-Q 5,000 unit Q12HR [facility] Administration Cefazolin Sodium 1 gm in 50 mls @ 100 mls/hr 12/02/18 18:00 12/15/18 21:52 Ancef/Ns 1 Gm/50 Ml IV 12/27/18 18:29 100 mls/hr QPM ISABELLA Administration Protocol Sodium Chloride 100 mls @ 999 mls/hr 12/02/18 09:33 Nacl 0.9% IV SISSY PRN Hypotension Ketorolac Tromethamine 15 mg 12/13/18 09:11 12/15/18 10:37 Toradol IV 12/18/18 09:10 15 mg Q8H PRN Administration Pain, Mild (1-3) Lidocaine 1 each 12/11/18 11:30 12/15/18 08:24 Lidoderm 5% TD 1 each QDAY ISABELLA Administration Metoprolol Tartrate 100 mg 12/11/18 14:00 12/15/18 22:46 Lopressor PO 100 mg TID ISABELLA Administration Ondansetron HCl 4 mg 12/01/18 11:36 12/14/18 21:38 Zofran Odt PO 4 mg Q8H PRN Administration Nausea And Vomiting Oxycodone/Acetaminophen 1 tab 12/01/18 11:37 12/16/18 06:08 Percocet 5/325 PO 1 tab Q6H PRN Administration Pain, Moderate (4-6) Polyethylene Glycol 17 gm 12/02/18 08:00 12/15/18 08:29 Miralax 3350 PO 17 gm QDAY ISABELLA Administration Sevelamer Carbonate 2,400 mg 12/01/18 18:30 12/15/18 19:00 Renvela PO Not Given AC [facility] Sodium Biphosphate/Sodium Phosphate 133 ml 12/15/18 08:58 Fleet NM QDAY PRN Bowel Movement Sodium Chloride 10 ml 12/01/18 11:37 Sodium Chloride Flush Syringe 10 Ml IV PRN PRN LINE FLUSH Sorbitol 30 ml 12/07/18 11:00 12/14/18 12:48 Sorbitol 70% PO 30 ml PRN PRN Administration Constipation
--- NOTE | 2018-12-16 11:12 | Magnetic Resonance Report ---
MRI THORACIC SPINE WITHOUT CONTRAST INDICATION / CLINICAL INFORMATION: Back pain with radicular symptoms. Eval infection.. TECHNIQUE: Multisequence, multiplanar images of the thoracic spine were obtained. COMPARISON: None available. FINDINGS: There is moderate to severe motion artifact on nearly all sequences, particularly axial images, which limits this exam. ALIGNMENT: No significant malalignment with no significant scoliosis. VERTEBRAE:Normal marrow signal and vertebral body height for age. VISUALIZED SPINAL CORD: No significant abnormality. INTERVERTEBRAL DISCS: No significant abnormality. DEGENERATIVE FINDINGS: No significant degenerative findings. PARASPINAL SOFT TISSUES: No significant abnormality. ADDITIONAL FINDINGS: Small bilateral layering pleural effusions are partially imaged. There is nonspe cific subcutaneous emphysema in the back soft tissues. IMPRESSION: Slightly limited exam by motion artifact. Unremarkable MR thoracic spine without contrast. No evidenc e of significant degenerative changes, bulging disc, central canal narrowing or infection. Small bilateral layering pleural effusions. Signer Name: Hemanth Matute Jr, MD Signed: 12/16/2018 11:07 AM Workstation Name: [id number]
[2018-12-16] MEDS: RENVELA PO SCH ×3 (11:15→15:44)
[2018-12-16] MEDS: COLCHICINE PO SCH (11:16)
[2018-12-16] MEDS: LIDODERM 5% TD SCH (11:17)
[2018-12-16] MEDS: NORVASC PO SCH (11:18)
[2018-12-16] MEDS: LOPRESSOR PO SCH ×3 (11:18→21:28)
[2018-12-16] MEDS: DICLOFENAC 1% TP SCH ×3 (11:19→20:16)
[2018-12-16] MEDS: MIRALAX 3350 PO SCH (11:19)
--- NOTE | 2018-12-16 11:19 | Progress Note ---
Subjective Date of service: 12/16/18 Principal diagnosis: Debility, weakness, sepsis Interval history: 73-year-old male presented to the ER on November 11 with shortness of breath. He was noted to be febrile. Chest x-ray showed bilateral pneumonia and he was started on cefepime. He was noted to have purulent drainage from his dialysis catheter. It was removed and replaced. He developed altered mental status, MRI was negative. Infectious disease was consulted and started the patient on cefazolin which will be continued until 12/27/2018. His leukocytosis improved however he continued to spike occasional fevers even on antibiotics. Recommendation was made to obtain CT chest abdomen and pelvis which showed septic emboli in the bilateral lungs. SAMARIA was performed looking for cardiac vegetations but none were found. He remains fairly weak and will need continued close monitoring for antibiotic therapy, fevers and leukocytosis, end-stage renal disease and other possible worsening of condition. Patient is participating in therapy and making slow progress. Taking rest breaks as needed. Due to lack of progress we have discussed with patient and the possibility of referring him out for correction facility placement - referral has been made with acceptance of facility. At this point we are awaiting family and insurance. Patient is tolerating metoprolol for rate control. Blood cultures show no growth. Continues on antibiotics. Intermittent episodes of fever, none currently. MRI was completed late this afternoon and results as well as imaging were reviewed. A lot of motion artifact. Thoracic looks good there is some abutment in the lumbar spinal cord without major stenosis. Radiologist was able to see a right-sided L4 foraminal stenosis that was impinging on the nerve root however due to the incredible motion artifact I was unable to see this on the computer screen that I have available. At any rate we'll discussed with the patient that a transforaminal epidural steroid injection may help to alleviate his pain. Based on the read from the radiologist this is a long-term arthritic change. We'll discussed with the patient further tomorrow. Have also started him on renally dosed gabapentin for pain relief. Multiple large bowel movements after the soapsuds enema. Patient is feeling better we'll continue to monitor. Denies palpitations, chest pain, cough, N/V. Tolerating dialysis well. All records, vitals, labs and medications were reviewed. No other issues per patient, nursing or therapy. Discharge pending acceptance of family inpatient of either correction facility R decision to go home with assistance. Objective - Exam Narrative Exam: MUSCULOSKELETAL SPECIALTY EXAM CONSTITUTIONAL: Well developed, well nourished, appropriately groomed EENT: EOMI. Hearing intact to soft voice RESPIRATORY: Clear to auscultation bilaterally, no increased work of breathing CARDIOVASCULAR: RRR, no edema. All extremities warm. GI: + bowel sounds, soft, NTTP, distended. INTEGUMENTARY: Normal, no lesion, rash, masses or bruising noted in extremities. MUSCULOSKELETAL: Effusions at the bilateral wrists noted. No noted effusions on visual exam at the knees. There is some tenderness to range of motion of the wrist but no discrete tenderness to palpation as I would expect with a gout exacerbation. Slight tenderness to palpation at right hip. No TTP b/l knees. Mild/insignificant tenderness to palpation over lower back and SI joint area. Seated and supine straight leg raise negative bilaterally. No tenderness to palpation or squeeze at the calf, Stefania signs negative. No pain with range of motion. Bilateral hamstrings tight and some effort involved in order to get patient's legs to full extension. Otherwise, BUE and BLE normal without defect, crepitus, subluxation or TTP. BUE 4-/5, reduced ROM, with normal tone. BLE 4-/5 reduced ROM, with normal tone. NEURO: CN 2-12 grossly intact. Sensation intact in all extremities. Coordination slightly impaired in BUE. No tremor noted in 4 extremities. POSTURE and GAIT: Sitting posture impaired. Balance decreased. Gait slowed with rolling walker. PSYCH: Alert, oriented x3, affect appears flattened. Insight appears impaired at times. - Constitutional Vitals: Vital Signs - 12hr 12/16/18 12/16/18 12/16/18 04:13 06:02 06:34 Temperature 36.8 C Pulse Rate 68 64 67 Respiratory 19 20 Rate Blood Pressure 187/92 Blood Pressure 165/76 [Left] O2 Sat by Pulse 98 100 Oximetry 12/16/18 07:00 Temperature 36.8 C Pulse Rate 64 Respiratory 20 Rate Blood Pressure 158/73 Blood Pressure [Left] O2 Sat by Pulse 93 Oximetry - Allied health notes Allied health notes reviewed: nursing, PT, OT FIMS assessment as documented by PT/OT/ST: Social interaction/Memory/Problem solving Social Interaction FIM Score 4. Minimal Assistance (Interacts appropriately 75-90%.) Memory FIM Score 5. Supervision (Needs cueing <10%, stressful/ unfamiliar situations.) Problem Solving FIM Score 4. Minimal Assistance (Solves routine problems 75-90%.) Transfers Mode of Locomotion: Wheelchair Bed/Chair/Wheelchair Transfers 3. Moderate Assistance (Patient = 50% or more. FIM Score Some lifting.) Locomotion- walk/wheelchair Most Frequent Mode of Wheelchair Locomotion: Ambulation Distance 15 Walking FIM Score 1. Total Assistance (Pt. < 25%, 2 or more person assist, or <50 ft.) Wheelchair Propulsion Distance 150 Wheelchair FIM Score 5. Supervision (Minimum 150 ft. supv./cues or 50 ft. independently.) Dressing-lower body Patient retrieves clothing No items: Lower Body Dressing FIM Score 2. Maximal Assistance (Patient = 25% or more) - Labs CBC & Chem 7: 12/15/18 07:59 12/11/18 08:29 Labs: Laboratory Results - last 72 hr 12/14/18 12/15/18 23:34 07:59 WBC 9.2 RBC 3.25 L Hgb 9.0 L Hct 27.2 L MCV 84 MCH 28 MCHC 33 RDW 17.0 H Plt Count 241 Lymph % (Auto) 19.5 [place] % (Auto) 13.0 H Eos % (Auto) 0.7 Baso % (Auto) 0.4 Lymph # 1.8 [place] # 1.2 H Eos # 0.1 Baso # 0.0 Seg Neutrophils % 66.4 Seg Neutrophils # 6.1 Hepatitis A IgM Ab Non-reactive Hep Bs Antigen Non-reactive Hep B Core IgM Ab Non-reactive Hepatitis C Antibody Non-reactive Assessment and Plan New onset atrial fibrillation: On rate control and telemetry per cardiology. A ppreciate their assistance. Defer anticoagulation at this point due to anemia. PNA and Sepsis (MSSA) with persistent fevers on abx: cont cefazolin until 12/27/18. Monitor for any signs of worsening pneumonia and are leukocytosis. Expect to continue seeing the intermittent fevers and will treat with Tylenol as needed. Patient does have bilateral pulmonary septic emboli. SAMARIA did not show vegetations. Infectious disease also monitoring. Recent Blood cultures negative ESRD on HD: Continue hemodialysis per nephrology and renally dose medications including antibiotics. Hypertension: Continue medications, adjust as needed for normotension. Amlodipine added by cardiology. Anemia: Continue to monitor hemoglobin. Continue erythropoietin. Transfuse as needed. Improved to 7.6 after PRBC Thyroid nodule seen on CT: Recommend follow-up. Possible pseudogout - short course of treatment with colchicine. Due to current abx treatment for septic emboli, will avoid joint aspiration to reduce risk of further infection L4 nerve root impingement at the foramen: Start low-dose gabapentin Z73.6 ADL dysfunction: OT will work on improving ability to perform ADLs (including assistive devices) to increase independence and decrease caregiver burden and improve functional transfers and mobility training. R26.2 Difficulty walking: PT will work on gait training and proper use of assistive devices and advance as appropriate to use of stairs and outside ambulation on uneven surfaces. R26.81 Unsteadiness on feet: PT will work on improving static and dynamic sitting and standing balance as well as proper use of assistive devices to decrease risk of falls. R26.89 Abnormality of gait: PT will work to improve safety and efficiency of gait through neuromotor training and gait training along with instruction on proper use of assistive devices. M62.81 Muscle weakness: PT & OT will work on strengthening exercises to improve functional strength including mixture of closed and open kinetic chain exercises. R53.81 Debility: PT & OT will work on improving overall functional status to improve participation with ADLs, mobility and social involvement. R53.83 Fatigue: PT & OT will work on improving endurance through aerobic exercises and therapeutic activity while monitoring patients tolerance for activity and vital signs as needed. K59.00 Constipation: Bisacodyl supp today. Dulcolax PO and miralax, sorbitol. KUB with moderate stool burden - no obstruction. Enema when necessary. Soapsu ds enema today DVT ppx: SCDs, heparin Pain: Continue physical modalities in therapy and pain medications as needed to achieve functional pain control. Add voltaren, lidoderm. Toradol started by nephrology. Sleep: Monitor and address as needed. Bowel: Monitor and address as needed. Appetite: Monitor and address as needed. Discharge planning: Pending therapy progress and care plan meeting. Will continue discussion with therapy team, SW, patient and family. Restrictions/ Precautions: Falls WB status: FWB Functional Hx: ADLs: Independent Cognition: Independent Mobility: No AD Barriers to Discharge: Decreased mobility and ability to perform self care, balance deficits, weakness Estimated Length of Stay: 1418 days Discharge Destination: Home with family vs SNF
[2018-12-16] MEDS: HEPARIN SUB-Q SCH ×2 (11:39→21:29)
--- NOTE | 2018-12-16 11:50 | Magnetic Resonance Report ---
MRI LUMBAR SPINE WITHOUT CONTRAST INDICATION / CLINICAL INFORMATION: back pain with radicular symptoms. eval infection.. TECHNIQUE: Multisequence, multiplanar images of the lumbar spine were obtained. COMPARISON: None available. FINDINGS: ALIGNMENT: Normal lumbar lordosis without significant scoliosis. VERTEBRAE:The motion significantly degrades the image quality. There is diffuse heterogeneous appeara nce of the visualized spine with relative decreased diffuse a signal on all sequences. The findings a re nonspecific though may be seen with marrow replacement and correlation would be needed diffuse a d ecrease signal may also be seen with renal osteodystrophy. There is edema involving inferior L3 and L4 vertebral bodies which may be on a degenerative basis. Th ere is no significant edema involving adjacent superior L4 or L5 vertebral bodies to indicate disc ce ntered process such as discitis at. No epidural collections are identified. There are paraspinal infl ammatory changes at these segments. VISUALIZED SPINAL CORD: No significant abnormality. [id number] ANALYSIS: L1-2: No significant abnormality. L2-3: There are focal endplate changes anteriorly at. The disc bulge slightly flattens the ventral th ecal sac. There is mild right neural foraminal narrowing. L3-4: The disc bulge minimally flattens the ventral thecal sac with slight encroachment on the latera l recesses at. There is no significant foraminal narrowing. Is mild facet joint arthropathy. L4-5: The degenerative changes are greater on the right with effacement of the right lateral recess a nd encroachment on the exiting right L4 nerve root sheath at. The motion again degrades the image mel lity at this level though there is suggestion of postsurgical changes on the right. Otherwise, the fi ndings may reflect advanced degenerative changes of the right facet joint. L5-S1: There is no significant spinal stenosis or foraminal narrowing. PARASPINAL SOFT TISSUES: No significant abnormality. ADDITIONAL FINDINGS: None. IMPRESSION: 1. There is edema involving the inferior L3 and L4 vertebral bodies which would appear to be on a adv anced degenerative basis as a detailed above. There are also appear to be a postsurgical changes on t he right at L4-5 with effacement of the right lateral recess. 2. The study is limited by motion. However, there is diffuse heterogeneous appearance of the visualiz ed spine with relative decreased signal which may be a seen with renal osteodystrophy though correlat ion would be needed regarding marrow replacement or anemia. Signer Name: Andre Coyle MD Signed: 12/16/2018 11:45 AM Workstation Name: [id number]
--- NOTE | 2018-12-16 12:47 | Progress Note ---
Assessment and Plan 73 yo M PMHx HTN, ESRD on HD, hyperparathyroidism, OA admitted with vascular catheter infection. 1. MSSA bacteremia secondary to Vascular catheter infection: catheter removed. Repeat blood cultures from 11/15/2018 negative. Got new HD cath placed. TTE unremarkable for any vegetations. Intermittent fevers continues felt to be septic emboli or gouty attack. CT chest abdomen and pelvis showed bilateral pulmonary septic emboli, no abdominal abscess. SAMARIA no vegetations. 2. Persistent fever: ? from septic emboli or gouty attack. History of madelyn wrist gout. Fever resolved. 3. Lower back pain with R leg pain: MRI T & L spine unremarkable for infection, showed findings of possible degenerative osteoarthritis and possible renal osteodystrophy. Recs: - continue Cefazolin IV 1 gm daily qpm while inpatient here and upon discharge switch to a 2 gm post HD regimen to avoid a PICC line - total 6 weeks of abx ending 12/27/2018 Will sign off. Please call with questions. Belinda Braun MD, FACP [facility] ([facility]) M: [phone] O: [phone] F: [phone] Subjective Date of service: 12/16/18 Principal diagnosis: Debility, weakness, sepsis Interval history: No fever. States he just ate food. MRI done, results explained to patient, no infection found. Objective - Exam Narrative Exam: Constitutional: awake, alert, no distress. Head, Ears, Nose: Normocephalic, atraumatic. External ears, nose normal Eyes: Conjunctivae/corneas clear. No icterus. No ptosis. Neck: Supple, no meningeal signs Cardiovascular: S1, S2 normal. Respiratory: Good air entry, clear to auscultation bilaterally GI: Soft, non-tender; bowel sounds normal. No peritoneal signs Musculoskeletal: No pedal edema, no cyanosis. HD cath + Skin: No rash or abscess Hem/Lymphatic: No palpable cervical or supraclavicular nodes. No lymphangitis Psych: no agitation Neurological: awake, alert, oriented - Constitutional Vitals: Vital Signs Temp Pulse Resp BP Pulse Ox 98.0 F 66 16 159/73 2 L 12/16/18 11:53 12/16/18 11:53 12/16/18 11:53 12/16/18 11:53 12/16/18 11:53 Temperature -Last 24 Hours Temperature 98.0 F Temperature 98.3 F Temperature 98.3 F Temperature 98.6 F Temperature 98.4 F Temperature 98.5 F Temperature 98.5 F - Labs CBC & Chem 7: 12/15/18 07:59 12/11/18 08:29
[2018-12-16] MEDS: NEURONTIN PO SCH ×2 (15:44→21:27)
[2018-12-16] MEDS: ANCEF/NS 1 GM/50 ML 1 GM/50 ML BAG IV SCH (17:22)
[2018-12-17] MEDS: NEURONTIN PO SCH ×3 (05:07→22:37)
[2018-12-17] MEDS: PERCOCET 5/325 PO PRN ×3 (05:19→22:37)
--- NOTE | 2018-12-17 07:08 | Hem/Onc Progress Note ---
Assessment and Plan 1. Based on CT finding, it is septic emboli and not a thrombotic event. Anticoagulation is less likely to be helpful. 2. Anemia of chronic kidney disease, may have a role. This also can be multifactorial. We will follow 3. History of leukocytosis. 4. History of high PTH. 5. End-stage renal disease, on dialysis. 6. History of fever. 7. Fever issues. 8. Antibiotic and physical Therapy. 9. History of hypertension. 10. Pt has Permacath for dialysis issues. I will follow the patient during the inpatient stay and then in the clinic setting. Abx as per ID b12 - folate - iron ferritin WNL seen by ID ESRD pts get epo and iv iron with HD 12/17 s/p PRBC - hb better joint pain - rehab following ID - antibiotics MRI done A fib - not on Rx due to anemia as per info - home vs custodial - Patient Problems (1) Septic embolism Current Visit: Yes Status: Acute Subjective Date of service: 12/17/18 Principal diagnosis: anemia Interval history: no bleeding Objective - Exam Narrative Exam: Pain - none General appearance - awake Performance status limited self care Eyes - no icterus ENT - no bleeding LNs cervical not palpable Neck - no LN Respiratory Normal Breath sounds - CTA anteriorly CVS S1 S2 + Extremities no calf tenderness General GI Soft Rectal deferred male - deferred Skin warm Musculoskeletal moving extremitites Neurologically awake - Constitutional Vitals: Last Vital Signs Temp 98.6 F 12/17/18 05:05 Pulse 57 L 12/17/18 05:05 Resp 16 12/17/18 05:05 BP 152/90 12/17/18 05:05 Pulse Ox 93 12/17/18 05:05 Medications & Allergies - Medications Allergies/Adverse Reactions: Allergies No Known Allergies Allergy (Verified 08/27/18 16:19) Home Medications: Home Medications Medication Instructions Recorded Confirmed Last Taken Type Acetaminophen [Acetaminophen 650 mg VA Q4H PRN supp.rect 11/26/18 12/02/18 12/01/18 Rx SUPPOS] Docusate Sodium [Colace CAP] 100 mg PO BID capsule 11/26/18 12/02/18 12/01/18 Rx Epoetin Jeramy 10,000 Unit [Procrit] 10,000 unit IV TuThSa vial 11/26/18 12/02/18 12/01/18 Rx Polyethylene Glycol 3350 [Miralax 17 gm PO BID PRN powd.pack 11/26/18 12/02/18 12/01/18 Rx 3350] Sevelamer Carbonate [Renvela] 2,400 mg PO AC tablet 11/26/18 12/02/18 12/01/18 Rx oxyCODONE /ACETAMINOPHEN [Percocet 1 tab PO Q6H PRN tablet 11/26/18 12/02/18 12/01/18 Rx 5/325 mg] Active Medications: Generic Name Dose Route Start Last Admin Trade Name Freq PRN Reason Stop Dose Admin Acetaminophen 650 mg 12/01/18 11:36 12/04/18 13:21 Tylenol PO 650 mg Q6H PRN Administration Non Cardiac Pain or Temp>100.5 Amlodipine Besylate 7.5 mg 12/16/18 08:00 12/16/18 11:18 Norvasc PO 7.5 mg QDAY ISABELLA Administration Bisacodyl 10 mg 12/01/18 11:36 12/14/18 12:48 Dulcolax VA 10 mg QDAY PRN Administration Constipation Diclofenac Sodium 1 applic 12/11/18 14:00 12/16/18 20:16 Diclofenac 1% TP 1 applic TID ISABELLA Administration Epoetin Jeramy 10,000 unit 12/03/18 12:00 12/15/18 23:50 Procrit IV Not Given [facility] Gabapentin 100 mg 12/16/18 16:00 12/17/18 05:07 Neurontin PO 100 mg Q8HR ISABELLA Administration Heparin Sodium (Porcine) 5,000 unit 12/10/18 22:00 12/16/18 21:29 Heparin SUB-Q 5,000 unit Q12HR ISABELLA Administration Cefazolin Sodium 1 gm in 50 mls @ 100 mls/hr 12/02/18 18:00 12/16/18 17:22 Ancef/Ns 1 Gm/50 Ml IV 12/27/18 18:29 100 mls/hr QPM ISABELLA Administration Protocol Sodium Chloride 100 mls @ 999 mls/hr 12/02/18 09:33 Nacl 0.9% IV SISSY PRN Hypotension Ketorolac Tromethamine 15 mg 12/13/18 09:11 12/15/18 10:37 Toradol IV 12/18/18 09:10 15 mg Q8H PRN Administration Pain, Mild (1-3) Lidocaine 1 each 12/11/18 11:30 12/16/18 11:17 Lidoderm 5% TD 1 each QDAY ISABELLA Administration Metoprolol Tartrate 100 mg 12/11/18 14:00 12/16/18 21:28 Lopressor PO 100 mg TID ISABELLA Administration Ondansetron HCl 4 mg 12/01/18 11:36 12/14/18 21:38 Zofran Odt PO 4 mg Q8H PRN Administration Nausea And Vomiting Oxycodone/Acetaminophen 1 tab 12/01/18 11:37 12/17/18 05:19 Percocet 5/325 PO 1 tab Q6H PRN Administration Pain, Moderate (4-6) Polyethylene Glycol 17 gm 12/02/18 08:00 12/16/18 11:19 Miralax 3350 PO 17 gm QDAY ISABELLA Administration Sevelamer Carbonate 2,400 mg 12/01/18 18:30 12/16/18 15:44 Renvela PO 2,400 mg AC ISABELLA Administration Sodium Biphosphate/Sodium Phosphate 133 ml 12/15/18 08:58 Fleet VA QDAY PRN Bowel Movement Sodium Chloride 10 ml 12/01/18 11:37 Sodium Chloride Flush Syringe 10 Ml IV PRN PRN LINE FLUSH Sorbitol 30 ml 12/07/18 11:00 12/14/18 12:48 Sorbitol 70% PO 30 ml PRN PRN Administration Constipation
[2018-12-17] MEDS: LIDODERM 5% TD SCH (09:19)
[2018-12-17] MEDS: RENVELA PO SCH ×3 (09:20→16:40)
[2018-12-17] MEDS: NORVASC PO SCH (09:22)
[2018-12-17] MEDS: LOPRESSOR PO SCH ×3 (09:22→22:37)
[2018-12-17] MEDS: MIRALAX 3350 PO SCH (09:25)
[2018-12-17] MEDS: HEPARIN SUB-Q SCH ×2 (09:25→23:11)
[2018-12-17] MEDS: DICLOFENAC 1% TP SCH ×3 (09:25→22:39)
--- NOTE | 2018-12-17 14:21 | Progress Note ---
Assessment and Plan - Patient Problems (1) End stage renal disease Current Visit: No Status: Chronic Plan to address problem: Maintain on inpatient TTS HD schedule. (2) Sepsis Current Visit: Yes Status: Acute Qualifiers: Sepsis type: methicillin susceptible Staphylococcus aureus Plan to address problem: MSSA bactermia in setting of infected permcath with evidence of septic emboli on CT. S/P removal and replacement of permcath, with clearing of repeat blood cultures. TTE and SAMARIA noted without any evidence of vegetations. (3) Pneumonia Current Visit: Yes Status: Acute Qualifiers: Pneumonia type: due to unspecified organism Laterality: unspecified laterality Lung location: unspecified part of lung Qualified Code(s): J18.9 - Pneumonia, unspecified organism Plan to address problem: Improved, antibiotics per ID recommendations. (4) Secondary hyperparathyroidism (of renal origin) Current Visit: No Status: Chronic Plan to address problem: Continue home phos binder regimen. 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 chronic kidney disease or end stage renal disease Current Visit: No Status: Chronic Plan to address problem: Continue on current regimen. Subjective Date of service: 12/17/18 Principal diagnosis: anemia Interval history: No acute complaints this afternoon. Results of the MRI reviewed. Plan for HD today. Objective - Vital Signs Vital signs: Vital Signs - 12hr 12/17/18 12/17/18 12/17/18 05:05 07:19 09:22 Temperature 98.6 F 97.9 F Pulse Rate 57 L 58 L Respiratory 16 18 Rate Blood Pressure 152/90 146/72 146/72 O2 Sat by Pulse 93 98 Oximetry - General Appearance General appearance: well-developed, well-nourished, appears stated age EENT: ATNC, PERRL Neck: no JVD, no thyromegaly Respiratory: Present: Clear to Ascultation, Normal Exam Cardiology: regular, S1S2 Gastrointestinal: normal, normoactive bowel sounds Integumentary: no rash, warm and dry Neurologic: alert and oriented x3 Psychiatric: mood/affect appropriate, cooperative - Lab 12/15/18 07:59 12/11/18 08:29 Most recent lab results Calcium 8.7 mg/dL (8.4-10.2) 12/11/18 08:29 Phosphorus 5.90 mg/dL (2.5-4.5) H 12/03/18 06:14 - Allied health notes Allied health notes reviewed: nursing Medications & Allergies - Medications Allergies/Adverse Reactions: Allergies No Known Allergies Allergy (Verified 08/27/18 16:19) Home Medications: Home Medications Medication Instructions Recorded Confirmed Last Taken Type Acetaminophen [Acetaminophen 650 mg [place] Q4H PRN supp.rect 11/26/18 12/02/18 12/01/18 Rx SUPPOS] Docusate Sodium [Colace CAP] 100 mg PO BID capsule 11/26/18 12/02/18 12/01/18 Rx Epoetin Jeramy 10,000 Unit [Procrit] 10,000 unit IV TuThSa vial 11/26/18 12/02/18 12/01/18 Rx Polyethylene Glycol 3350 [Miralax 17 gm PO BID PRN powd.pack 11/26/18 12/02/18 12/01/18 Rx 3350] Sevelamer Carbonate [Renvela] 2,400 mg PO AC tablet 11/26/18 12/02/18 12/01/18 Rx oxyCODONE /ACETAMINOPHEN [Percocet 1 tab PO Q6H PRN tablet 11/26/18 12/02/18 12/01/18 Rx 5/325 mg] Active Medications: Generic Name Dose Route Start Last Admin Trade Name Freq PRN Reason Stop Dose Admin Acetaminophen 650 mg 12/01/18 11:36 12/04/18 13:21 Tylenol PO 650 mg Q6H PRN Administration Non Cardiac Pain or Temp>100.5 Amlodipine Besylate 7.5 mg 12/16/18 08:00 12/17/18 09:22 Norvasc PO 7.5 mg QDAY ISABELLA Administration Bisacodyl 10 mg 12/01/18 11:36 12/14/18 12:48 Dulcolax MI 10 mg QDAY PRN Administration Constipation Diclofenac Sodium 1 applic 12/11/18 14:00 12/16/18 20:16 Diclofenac 1% TP 1 applic TID ISABELLA Administration Epoetin Jeramy 10,000 unit 12/03/18 12:00 12/15/18 23:50 Procrit IV Not Given TUTHSA ISABELLA Gabapentin 100 mg 12/16/18 16:00 12/17/18 05:07 Neurontin PO 100 mg Q8HR ISABELLA Administration Heparin Sodium (Porcine) 5,000 unit 12/10/18 22:00 12/17/18 09:25 Heparin SUB-Q 5,000 unit Q12HR ISABELLA Administration Cefazolin Sodium 1 gm in 50 mls @ 100 mls/hr 12/02/18 18:00 12/16/18 17:22 Ancef/Ns 1 Gm/50 Ml IV 12/27/18 18:29 100 mls/hr QPM ISABELLA Administration Protocol Sodium Chloride 100 mls @ 999 mls/hr 12/02/18 09:33 Nacl 0.9% IV SISSY PRN Hypotension Ketorolac Tromethamine 15 mg 12/13/18 09:11 12/15/18 10:37 Toradol IV 12/18/18 09:10 15 mg Q8H PRN Administration Pain, Mild (1-3) Lidocaine 1 each 12/11/18 11:30 12/17/18 09:19 Lidoderm 5% TD 1 each QDAY ISABELLA Administration Metoprolol Tartrate 100 mg 12/11/18 14:00 12/17/18 09:22 Lopressor PO 100 mg TID ISABELLA Administration Ondansetron HCl 4 mg 12/01/18 11:36 12/14/18 21:38 Zofran Odt PO 4 mg Q8H PRN Administration Nausea And Vomiting Oxycodone/Acetaminophen 1 tab 12/01/18 11:37 12/17/18 12:25 Percocet 5/325 PO 1 tab Q6H PRN Administration Pain, Moderate (4-6) Polyethylene Glycol 17 gm 12/02/18 08:00 12/17/18 09:25 Miralax 3350 PO 17 gm QDAY ISABELLA Administration Sevelamer Carbonate 2,400 mg 12/01/18 18:30 12/17/18 12:27 Renvela PO 2,400 mg AC ISABELLA Administration Sodium Biphosphate/Sodium Phosphate 133 ml 12/15/18 08:58 Fleet MI QDAY PRN Bowel Movement Sodium Chloride 10 ml 12/01/18 11:37 Sodium Chloride Flush Syringe 10 Ml IV PRN PRN LINE FLUSH Sorbitol 30 ml 12/07/18 11:00 12/14/18 12:48 Sorbitol 70% PO 30 ml PRN PRN Administration Constipation
--- NOTE | 2018-12-17 15:07 | Progress Note ---
Subjective Date of service: 12/17/18 Principal diagnosis: Debility, weakness, sepsis Interval history: 73-year-old male presented to the ER on November 11 with shortness of breath. He was noted to be febrile. Chest x-ray showed bilateral pneumonia and he was started on cefepime. He was noted to have purulent drainage from his dialysis catheter. It was removed and replaced. He developed altered mental status, MRI was negative. Infectious disease was consulted and started the patient on cefazolin which will be continued until 12/27/2018. His leukocytosis improved however he continued to spike occasional fevers even on antibiotics. Recommendation was made to obtain CT chest abdomen and pelvis which showed septic emboli in the bilateral lungs. SAMARIA was performed looking for cardiac vegetations but none were found. He remains fairly weak and will need continued close monitoring for antibiotic therapy, fevers and leukocytosis, end-stage renal disease and other possible worsening of condition. Patient is participating in therapy and making slow progress. Taking rest breaks as needed. Due to lack of progress we have discussed with patient and the possibility of referring him out for assisted facility placement - referral has been made with acceptance of facility. At this point we are awaiting family and insurance. Patient is tolerating metoprolol for rate control. Blood cultures show no growth. Continues on antibiotics. Intermittent episodes of fever, none currently. No further issues from bowels. Therapy also states that he is not had any more complaints of pressure or spasms in his rectum. Spent proximally 40 minutes with the patient discussing the nerve root impingement at L4 noted on his MRI. I showed him images of the area on a screen along with a spine model. Discussed various interventional treatments. Patient continues to ask to have surgery and continues to want to have something done while he is inpatient. Discussed with the patient multiple times that the interventional treatment is an outpatient procedure and treatment is also a stepwise procedure that does not automatically jump to surgery based on his particular findings. Patient still is not in any acute distress when examining him. He is able to stand, does have increased pain to some degree with rotation at the waist. Mild tenderness to palpation at the lower lumbar paraspinal on the right. However all things considered the amount of distress and/or pain seems fairly mild. Explained to the patient that he is on gabapentin for pain relief along with Lidoderm and Percocet. Also discussed finding an interventional pain physician to perform a TFESI but told him that this was not a guarantee to fix and may just provide him with temporary relief. Towards the end of this prolonged discussion the patient didn't finally admit that he had back pain in the past and was receiving oral steroids for it. He denies any previous interventional therapy or back surgery. Patient was discussed in team conference. He is making very slow progress elizabeth odette the past few days has been slightly better than before after his family member discussed going to a assisted facility again with him. He does not recall either myself or Ana Paula having a conversation with him previously about going to a assisted facility. After team conference we both went in to discussed with him again his options for discharge since he is not making good progress. We discussed going home with home health as well as going to a assisted facility. We described the differences between the 2 options and total more recommendation based on his progress thus far as well as the changes we see in him would be going to a assisted facility so that he can be monitored around the clock. He asked if he could consult with his . Afterwards we followed up with them and he stated that his wants him to go home with home health. We will discharge on Friday with a wheelchair, 3 in 1 and home health. This is not the safest option and may not provide him the opportunity to benefit from the most therapy however it is their choice. We did inform them that he would need 24-hour care and should not be getting up on his own. He assures us that they will have someone there to help him at all times. Denies palpitations, chest pain, cough, N/V. Tolerating dialysis well. All records, vitals, labs and medications were reviewed. No other issues per patient, nursing or therapy. Discharge pending acceptance of family inpatient of either assisted facility R decision to go home with assistance. Objective - Exam Narrative Exam: MUSCULOSKELETAL SPECIALTY EXAM CONSTITUTIONAL: Well developed, well nourished, appropriately groomed EENT: EOMI. Hearing intact to soft voice RESPIRATORY: Clear to auscultation bilaterally, no increased work of breathing CARDIOVASCULAR: RRR, no edema. All extremities warm. GI: + bowel sounds, soft, NTTP, distended. INTEGUMENTARY: Normal, no lesion, rash, masses or bruising noted in extremities. MUSCULOSKELETAL: Effusions at the bilateral wrists noted. No noted effusions on visual exam at the knees. There is some tenderness to range of motion of the wrist but no discrete tenderness to palpation as I would expect with a gout exacerbation. Slight tenderness to palpation at right hip. No TTP b/l knees. Mild/insi gnificant tenderness to palpation over lower back and SI joint area as well as tenderness with rotation at the waist. Seated and supine straight leg raise negative bilaterally. No tenderness to palpation or squeeze at the calf, Stefania signs negative. Otherwise, no pain with range of motion. Bilateral hamstrings tight and some effort involved in order to get patient's legs to full extension. Patient still describes his pain as squeezing in the leg. Otherwise, BUE and BLE normal without defect, crepitus, subluxation or TTP. BUE 4-/5, reduced ROM, with normal tone. BLE 4-/5 reduced ROM, with normal tone. NEURO: CN 2-12 grossly intact. Sensation intact in all extremities. Coordination slightly impaired in BUE. No tremor noted in 4 extremities. POSTURE and GAIT: Sitting posture impaired. Balance decreased. Gait slowed with rolling walker. PSYCH: Alert, oriented x3, affect appears flattened. Insight appears impaired at times. - Constitutional Vitals: Vital Signs - 12hr 12/17/18 12/17/18 12/17/18 05:05 07:19 09:22 Temperature 37.0 C 36.6 C Pulse Rate 57 L 58 L Respiratory 16 18 Rate Blood Pressure 152/90 146/72 146/72 O2 Sat by Pulse 93 98 Oximetry - Allied health notes Allied health notes reviewed: nursing, PT, OT FIMS assessment as documented by PT/OT/ST: Social interaction/Memory/Problem solving Social Interaction FIM Score 4. Minimal Assistance (Interacts appropriately 75-90%.) Memory FIM Score 5. Supervision (Needs cueing <10%, stressful/ unfamiliar situations.) Problem Solving FIM Score 4. Minimal Assistance (Solves routine problems 75-90%.) Transfers Mode of Locomotion: Wheelchair Bed/Chair/Wheelchair Transfers 3. Moderate Assistance (Patient = 50% or more. FIM Score Some lifting.) Locomotion- Stairs Device used on Stairs Handrail/s Number of Stairs Ascended/ 1 Descended Patient used handrail/support: Yes Stairs FIM Score 1. Total Assistance (Pt. < 25%, 2 person assist, or <4 stairs.) Locomotion- walk/wheelchair Most Frequent Mode of Wheelchair Locomotion: Ambulation Distance 90 Walking FIM Score 2. Maximal Assistance (Patient = 25% or more. Minimum of 50 ft.) Wheelchair Propulsion Distance 150 Wheelchair FIM Score 5. Supervision (Minimum 150 ft. supv./cues or 50 ft. independently.) Dressing-lower body Patient retrieves clothing No items: Lower Body Dressing FIM Score 2. Maximal Assistance (Patient = 25% or more) - Labs CBC & Chem 7: 12/15/18 07:59 12/11/18 08:29 Labs: Laboratory Results - last 72 hr 12/14/18 12/15/18 23:34 07:59 WBC 9.2 RBC 3.25 L Hgb 9.0 L Hct 27.2 L MCV 84 MCH 28 MCHC 33 RDW 17.0 H Plt Count 241 Lymph % (Auto) 19.5 Cook % (Auto) 13.0 H Eos % (Auto) 0.7 Baso % (Auto) 0.4 Lymph # 1.8 Cook # 1.2 H Eos # 0.1 Baso # 0.0 Seg Neutrophils % 66.4 Seg Neutrophils # 6.1 Hepatitis A IgM Ab Non-reactive Hep Bs Antigen Non-reactive Hep B Core IgM Ab Non-reactive Hepatitis C Antibody Non-reactive Assessment and Plan New onset atrial fibrillation: On rate control and telemetry per cardiology. Appreciate their assistance. Defer anticoagulation at this point due to anemia. PNA and Sepsis (MSSA) with persistent fevers on abx: cont cefazolin until 12/27/18. Monitor for any signs of worsening pneumonia and are leukocytosis. Expect to continue seeing the intermittent fevers and will treat with Tylenol as needed. Patient does have bilateral pulmonary septic emboli. SAMARIA did not show vegetations. Infectious disease also monitoring. Recent Blood cultures negative ESRD on HD: Continue hemodialysis per nephrology and renally dose medications including antibiotics. Hypertension: Continue medications, adjust as needed for normotension. Amlodipine added by cardiology. Anemia: Continue to monitor hemoglobin. Continue erythropoietin. Transfuse as needed. Improved to 7.6 after PRBC Thyroid nodule seen on CT: Recommend follow-up. Possible pseudogout - short course of treatment with colchicine. Due to current abx treatment for septic emboli, will avoid joint aspiration to reduce risk of further infection L4 nerve root impingement at the foramen: Start low-dose gabapentin Z73.6 ADL dysfunction: OT will work on improving ability to perform ADLs (including assistive devices) to increase independence and decrease caregiver burden and improve functional transfers and mobility training. R26.2 Difficulty walking: PT will work on gait training and proper use of assistive devices and advance as appropriate to use of stairs and outside ambula tion on uneven surfaces. R26.81 Unsteadiness on feet: PT will work on improving static and dynamic s itting and standing balance as well as proper use of assistive devices to decrease risk of falls. R26.89 Abnormality of gait: PT will work to improve safety and efficiency of gait through neuromotor training and gait training along with instruction on proper use of assistive devices. M62.81 Muscle weakness: PT & OT will work on strengthening exercises to improve functional strength including mixture of closed and open kinetic chain exercises. R53.81 Debility: PT & OT will work on improving overall functional status to improve participation with ADLs, mobility and social involvement. R53.83 Fatigue: PT & OT will work on improving endurance through aerobic exercises and therapeutic activity while monitoring patients tolerance for activity and vital signs as needed. K59.00 Constipation: Bisacodyl supp today. Dulcolax PO and miralax, sorbitol. KUB with moderate stool burden - no obstruction. Enema when necessary. Soapsuds enema today DVT ppx: SCDs, heparin Pain: Continue physical modalities in therapy and pain medications as needed to achieve functional pain control. Add voltaren, lidoderm. Toradol started by nephrology. Sleep: Monitor and address as needed. Bowel: Monitor and address as needed. Appetite: Monitor and address as needed. Discharge planning: Pending therapy progress and care plan meeting. Will continue discussion with therapy team, SW, patient and family. Restrictions/ Precautions: Falls WB status: FWB Functional Hx: ADLs: Independent Cognition: Independent Mobility: No AD Barriers to Discharge: Decreased mobility and ability to perform self care, b alance deficits, weakness Estimated Length of Stay: 1418 days Discharge Destination: Home with family per patient today
[2018-12-17] MEDS: PROCRIT IV SCH (17:01)
[2018-12-17] MEDS ORDERED: NACL 0.9 (PRIMING MACHINE ONLY DIALYSIS) MC ONE (19:02)
[2018-12-17] MEDS: ANCEF/NS 1 GM/50 ML 1 GM/50 ML BAG IV SCH (22:50)
[2018-12-18] MEDS: ZOFRAN ODT PO PRN (04:43)
[2018-12-18] MEDS: NEURONTIN PO SCH ×3 (06:43→22:50)
--- NOTE | 2018-12-18 07:05 | Hem/Onc Progress Note ---
Assessment and Plan 1. Based on CT finding, it is septic emboli and not a thrombotic event. Anticoagulation is less likely to be helpful. 2. Anemia of chronic kidney disease, may have a role. This also can be multifactorial. We will follow 3. History of leukocytosis. 4. History of high PTH. 5. End-stage renal disease, on dialysis. 6. History of fever. 7. Fever issues. 8. Antibiotic and physical Therapy. 9. History of hypertension. 10. Pt has Permacath for dialysis issues. I will follow the patient during the inpatient stay and then in the clinic setting. Abx as per ID b12 - folate - iron ferritin WNL seen by ID ESRD pts get epo and iv iron with HD 12/18 s/p PRBC - hb better joint pain - rehab following ID - antibiotics MRI done A fib - not on anticoagulation due to anemia as per info - home vs detention - Patient Problems (1) Septic embolism Current Visit: Yes Status: Acute Subjective Date of service: 12/18/18 Principal diagnosis: anemia Interval history: no bleeding d/w RN Objective - Exam Narrative Exam: Pain - none General appearance - awake Performance status limited self care Eyes - no icterus ENT - no bleeding LNs cervical not palpable Neck - no LN Respiratory Normal Breath sounds - CTA anteriorly CVS S1 S2 + Extremities no calf tenderness General GI Soft Rectal deferred male - deferred Skin warm Musculoskeletal moving extremitites Neurologically awake - Constitutional Vitals: Last Vital Signs Temp 99.2 F 12/17/18 20:18 Pulse 111 H 12/17/18 20:18 Resp 17 12/17/18 22:00 BP 131/84 12/17/18 20:18 Pulse Ox 98 12/18/18 01:34 Medications & Allergies - Medications Allergies/Adverse Reactions: Allergies No Known Allergies Allergy (Verified 08/27/18 16:19) Home Medications: Home Medications Medication Instructions Recorded Confirmed Last Taken Type Acetaminophen [Acetaminophen 650 mg [place] Q4H PRN supp.rect 11/26/18 12/02/18 12/01/18 Rx SUPPOS] Docusate Sodium [Colace CAP] 100 mg PO BID capsule 11/26/18 12/02/18 12/01/18 Rx Epoetin Jeramy 10,000 Unit [Procrit] 10,000 unit IV TuThSa vial 11/26/18 12/02/18 12/01/18 Rx Polyethylene Glycol 3350 [Miralax 17 gm PO BID PRN powd.pack 11/26/18 12/02/18 12/01/18 Rx 3350] Sevelamer Carbonate [Renvela] 2,400 mg PO AC tablet 11/26/18 12/02/18 12/01/18 Rx oxyCODONE /ACETAMINOPHEN [Percocet 1 tab PO Q6H PRN tablet 11/26/18 12/02/18 12/01/18 Rx 5/325 mg] Active Medications: Generic Name Dose Route Start Last Admin Trade Name Freq PRN Reason Stop Dose Admin Acetaminophen 650 mg 12/01/18 11:36 12/04/18 13:21 Tylenol PO 650 mg Q6H PRN Administration Non Cardiac Pain or Temp>100.5 Amlodipine Besylate 7.5 mg 12/16/18 08:00 12/17/18 09:22 Norvasc PO 7.5 mg QDAY SIABELLA Administration Bisacodyl 10 mg 12/01/18 11:36 12/14/18 12:48 Dulcolax [place] 10 mg QDAY PRN Administration Constipation Diclofenac Sodium 1 applic 12/11/18 14:00 12/17/18 22:39 Diclofenac 1% TP 1 applic TID ISABELLA Administration Epoetin Jeramy 10,000 unit 12/03/18 12:00 12/17/18 17:01 Procrit IV 10,000 unit TUTHSA ISABELLA Administration Gabapentin 100 mg 12/16/18 16:00 12/18/18 06:43 Neurontin PO 100 mg Q8HR ISABELLA Administration Heparin Sodium (Porcine) 5,000 unit 12/10/18 22:00 12/17/18 23:11 Heparin SUB-Q 5,000 unit Q12HR ISABELLA Administration Cefazolin Sodium 1 gm in 50 mls @ 100 mls/hr 12/02/18 18:00 12/17/18 22:50 Ancef/Ns 1 Gm/50 Ml IV 12/27/18 18:29 100 mls/hr QPM ISABELLA Administration Protocol Sodium Chloride 100 mls @ 999 mls/hr 12/02/18 09:33 Nacl 0.9% IV SISSY PRN Hypotension Ketorolac Tromethamine 15 mg 12/13/18 09:11 12/15/18 10:37 Toradol IV 12/18/18 09:10 15 mg Q8H PRN Administration Pain, Mild (1-3) Lidocaine 1 each 12/11/18 11:30 12/17/18 09:19 Lidoderm 5% TD 1 each QDAY ISABELLA Administration Metoprolol Tartrate 100 mg 12/11/18 14:00 12/17/18 22:37 Lopressor PO 100 mg TID ISABELLA Administration Ondansetron HCl 4 mg 12/01/18 11:36 12/18/18 04:43 Zofran Odt PO 4 mg Q8H PRN Administration Nausea And Vomiting Oxycodone/Acetaminophen 1 tab 12/01/18 11:37 12/17/18 22:37 Percocet 5/325 PO 1 tab Q6H PRN Administration Pain, Moderate (4-6) Polyethylene Glycol 17 gm 12/02/18 08:00 12/17/18 09:25 Miralax 3350 PO 17 gm QDAY ISABELLA Administration Sevelamer Carbonate 2,400 mg 12/01/18 18:30 12/17/18 16:40 Renvela PO Not Given AC ISABELLA Sodium Biphosphate/Sodium Phosphate 133 ml 12/15/18 08:58 Fleet [place] QDAY PRN Bowel Movement Sodium Chloride 10 ml 12/01/18 11:37 Sodium Chloride Flush Syringe 10 Ml IV PRN PRN LINE FLUSH Sorbitol 30 ml 12/07/18 11:00 12/14/18 12:48 Sorbitol 70% PO 30 ml PRN PRN Administration Constipation
[2018-12-18] MEDS: RENVELA PO SCH ×3 (08:37→18:03)
[2018-12-18] MEDS: DICLOFENAC 1% TP SCH ×3 (09:00→22:53)
[2018-12-18] MEDS: MIRALAX 3350 PO SCH (09:34)
[2018-12-18] MEDS: LOPRESSOR PO SCH ×3 (10:37→22:49)
[2018-12-18] MEDS: HEPARIN SUB-Q SCH ×2 (11:04→22:50)
[2018-12-18] MEDS: NORVASC PO SCH (11:34)
[2018-12-18] MEDS: LIDODERM 5% TD SCH (12:39)
[2018-12-18] MEDS: PERCOCET 5/325 PO PRN (13:00)
--- NOTE | 2018-12-18 13:42 | Event Note ---
Date: 12/18/18 Noted plans for possible discharge soon. I have placed Case Management orders for IV Cefazolin to be dosed post HD at the dialysis center. Abx end date is 12/27/2018. Belinda Braun MD, FACP [facility] ([facility] M: [phone] O: [phone] F: [phone]
--- NOTE | 2018-12-18 14:44 | Progress Note ---
Assessment and Plan - Patient Problems (1) End stage renal disease Current Visit: No Status: Chronic Plan to address problem: Maintain on inpatient TTS HD schedule. (2) Sepsis Current Visit: Yes Status: Acute Qualifiers: Sepsis type: methicillin susceptible Staphylococcus aureus Plan to address problem: MSSA bactermia in setting of infected permcath with evidence of septic emboli on CT. S/P removal and replacement of permcath, with clearing of repeat blood cultures. TTE and SAMARIA noted without any evidence of vegetations. (3) Pneumonia Current Visit: Yes Status: Acute Qualifiers: Pneumonia type: due to unspecified organism Laterality: unspecified laterality Lung location: unspecified part of lung Qualified Code(s): J18.9 - Pneumonia, unspecified organism Plan to address problem: Improved, antibiotics per ID recommendations. (4) Secondary hyperparathyroidism (of renal origin) Current Visit: No Status: Chronic Plan to address problem: Continue home phos binder regimen. 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 chronic kidney disease or end stage renal disease Current Visit: No Status: Chronic Plan to address problem: Continue on current regimen. Subjective Date of service: 12/18/18 Principal diagnosis: anemia Interval history: Patient seen earlier this am. No acute complaints. Plan for DC. Objective - Vital Signs Vital signs: Vital Signs - 12hr 12/18/18 12/18/18 07:41 11:36 Temperature 98.3 F 97.5 F L Pulse Rate 61 69 Respiratory 18 18 Rate Blood Pressure 142/107 134/67 O2 Sat by Pulse 98 100 Oximetry - General Appearance General appearance: well-developed, well-nourished, appears stated age EENT: ATNC, PERRL Neck: no JVD, no thyromegaly Respiratory: Present: Clear to Ascultation, Normal Exam Cardiology: regular, S1S2 Gastrointestinal: normal, normoactive bowel sounds Integumentary: no rash, warm and dry Neurologic: no focal deficit, no asterixis, alert and oriented x3 Psychiatric: mood/affect appropriate, cooperative - Lab 12/15/18 07:59 12/11/18 08:29 Most recent lab results Calcium 8.7 mg/dL (8.4-10.2) 12/11/18 08:29 Phosphorus 5.90 mg/dL (2.5-4.5) H 12/03/18 06:14 - Allied health notes Allied health notes reviewed: nursing Medications & Allergies - Medications Allergies/Adverse Reactions: Allergies No Known Allergies Allergy (Verified 08/27/18 16:19) Home Medications: Home Medications Medication Instructions Recorded Confirmed Last Taken Type Acetaminophen [Acetaminophen 650 mg VT Q4H PRN supp.rect 11/26/18 12/02/18 12/01/18 Rx SUPPOS] Docusate Sodium [Colace CAP] 100 mg PO BID capsule 11/26/18 12/02/18 12/01/18 Rx Epoetin Jeramy 10,000 Unit [Procrit] 10,000 unit IV TuThSa vial 11/26/18 12/02/18 12/01/18 Rx Polyethylene Glycol 3350 [Miralax 17 gm PO BID PRN powd.pack 11/26/18 12/02/18 12/01/18 Rx 3350] Sevelamer Carbonate [Renvela] 2,400 mg PO AC tablet 11/26/18 12/02/18 12/01/18 Rx oxyCODONE /ACETAMINOPHEN [Percocet 1 tab PO Q6H PRN tablet 11/26/18 12/02/18 12/01/18 Rx 5/325 mg] Active Medications: Generic Name Dose Route Start Last Admin Trade Name Freq PRN Reason Stop Dose Admin Acetaminophen 650 mg 12/01/18 11:36 12/04/18 13:21 Tylenol PO 650 mg Q6H PRN Administration Non Cardiac Pain or Temp>100.5 Amlodipine Besylate 7.5 mg 12/16/18 08:00 12/18/18 11:34 Norvasc PO 7.5 mg QDAY ISABELLA Administration Bisacodyl 10 mg 12/01/18 11:36 12/14/18 12:48 Dulcolax VT 10 mg QDAY PRN Administration Constipation Diclofenac Sodium 1 applic 12/11/18 14:00 12/17/18 22:39 Diclofenac 1% TP 1 applic TID ISABELLA Administration Epoetin Jeramy 10,000 unit 12/03/18 12:00 12/17/18 17:01 Procrit IV 10,000 unit TUTHSA ISABELLA Administration Gabapentin 100 mg 12/16/18 16:00 12/18/18 06:43 Neurontin PO 100 mg Q8HR ISABELLA Administration Heparin Sodium (Porcine) 5,000 unit 12/10/18 22:00 12/17/18 23:11 Heparin SUB-Q 5,000 unit Q12HR ISABELLA Administration Cefazolin Sodium 1 gm in 50 mls @ 100 mls/hr 12/02/18 18:00 12/17/18 22:50 Ancef/Ns 1 Gm/50 Ml IV 12/27/18 18:29 100 mls/hr QPM ISABELLA Administration Protocol Sodium Chloride 100 mls @ 999 mls/hr 12/02/18 09:33 Nacl 0.9% IV SISSY PRN Hypotension Lidocaine 1 each 12/11/18 11:30 12/18/18 12:39 Lidoderm 5% TD 1 each QDAY ISABELLA Administration Metoprolol Tartrate 100 mg 12/11/18 14:00 12/18/18 10:37 Lopressor PO 100 mg TID ISABELLA Administration Ondansetron HCl 4 mg 12/01/18 11:36 12/18/18 04:43 Zofran Odt PO 4 mg Q8H PRN Administration Nausea And Vomiting Oxycodone/Acetaminophen 1 tab 12/01/18 11:37 12/17/18 22:37 Percocet 5/325 PO 1 tab Q6H PRN Administration Pain, Moderate (4-6) Polyethylene Glycol 17 gm 12/02/18 08:00 12/18/18 09:34 Miralax 3350 PO 17 gm QDAY ISABELLA Administration Sevelamer Carbonate 2,400 mg 12/01/18 18:30 12/18/18 12:37 Renvela PO 2,400 mg AC ISABELLA Administration Sodium Biphosphate/Sodium Phosphate 133 ml 12/15/18 08:58 Fleet VT QDAY PRN Bowel Movement Sodium Chloride 10 ml 12/01/18 11:37 Sodium Chloride Flush Syringe 10 Ml IV PRN PRN LINE FLUSH Sorbitol 30 ml 12/07/18 11:00 12/14/18 12:48 Sorbitol 70% PO 30 ml PRN PRN Administration Constipation
--- NOTE | 2018-12-18 15:06 | Progress Note ---
Subjective Date of service: 12/18/18 Principal diagnosis: Debility, weakness, sepsis Interval history: 73-year-old male presented to the ER on November 11 with shortness of breath. He was noted to be febrile. Chest x-ray showed bilateral pneumonia and he was started on cefepime. He was noted to have purulent drainage from his dialysis catheter. It was removed and replaced. He developed altered mental status, MRI was negative. Infectious disease was consulted and started the patient on cefazolin which will be continued until 12/27/2018. His leukocytosis improved however he continued to spike occasional fevers even on antibiotics. Recommendation was made to obtain CT chest abdomen and pelvis which showed septic emboli in the bilateral lungs. SAMARIA was performed looking for cardiac vegetations but none were found. He remains fairly weak and will need continued close monitoring for antibiotic therapy, fevers and leukocytosis, end-stage renal disease and other possible worsening of condition. Patient is participating in therapy and making slow progress. Taking rest breaks as needed. Due to lack of progress we have discussed with patient and the possibility of referring him out for fdc facility placement family has refused and will discharge home. We have discussed need for 24hr supervision. Patient is tolerating metoprolol for rate control. Blood cultures show no growth. Continues on antibiotics. Intermittent episodes of fever, none current ly. No further issues from bowels. Therapy also states that he is not had any more complaints of pressure or spasms in his rectum. Patient was supposed to be discharged today however as we were getting prepared for discharge he states that he does not have any way to get home. Also since he and his refused to go to a fdc facility late yesterday which is what we recommended from a medical viewpoint as the safest option, we have tried to perform family training but were unable to get family to show up. We have also discussed with the patient and his that he will need 24-hour care at the supervision level which was primarily the reason that we strongly suggested that they go to a fdc facility. Going to a fdc facility would also allow him to continue to improve his function and be more independent at a lower rate which he could benefit from. At any rate, he had his home DME delivered this afternoon. We will arrange for him to have dialysis first thing in the morning. We have contacted his family and his brother or will be here to pick him up tomorrow at which time he will go through family training and then he will be discharged. I also gave the patient the names and phone numbers for 3 physician groups in the local area that perform interventional pain procedures and discussed with him the need that to follow-up with them for possible consideration for a L4 transforaminal epidural steroid injection to alleviate his pain. I discussed with him that he will need to be examined and evaluated by the interventional physician that he chooses and they may or may not decide to do what I am recommending. Also discussed with him that this will not completely fix this problem but it will provide pain relief and delay surgery until he is a true surgical candidate. While talking with him for the approximately 30-45 minutes about discharge issues and follow-up appointments that he needs to have he completely forgot about this information that I had just given him. I discussed with him that he also has me concerned for cognitive issues most likely related to early stages of dementia however he will not hear of that and says that he is okay. I again explained to him the follow-up with the interventional physician and encouraged him to follow-up with all of the physicians that we'll be in his discharge packet for the various reasons that he needs to follow-up with them and to make sure that he does not fall behind on his medications. Denies palpitations, chest pain, cough, N/V. Tolerating dialysis well. All records, vitals, labs and medications were reviewed. No other issues per patient, nursing or therapy. Discharge pending transportation and family training tomorrow. Objective - Exam Narrative Exam: MUSCULOSKELETAL SPECIALTY EXAM CONSTITUTIONAL: Well developed, well nourished, appropriately groomed EENT: EOMI. Hearing intact to soft voice RESPIRATORY: Clear to auscultation bilaterally, no increased work of breathing CARDIOVASCULAR: RRR, no edema. All extremities warm. GI: + bowel sounds, soft, NTTP, distended. INTEGUMENTARY: Normal, no lesion, rash, masses or bruising noted in extremities. MUSCULOSKELETAL: Effusions at the bilateral wrists noted. No noted effusions on visual exam at the knees. There is some tenderness to range of motion of the wrist but no discrete tenderness to palpation as I would expect with a gout exacerbation. Slight tenderness to palpation at right hip. No TTP b/l knees. M ild/insignificant tenderness to palpation over lower back and SI joint area as well as tenderness with rotation at the waist. Seated and supine straight leg raise negative bilaterally. No tenderness to palpation or squeeze at the calf, Stefania signs negative. Otherwise, no pain with range of motion. Bilateral hamstrings tight and some effort involved in order to get patient's legs to full extension. Patient still describes his pain as squeezing in the leg. Otherwise, BUE and BLE normal without defect, crepitus, subluxation or TTP. BUE 4-/5, reduced ROM, with normal tone. BLE 4-/5 reduced ROM, with normal tone. NEURO: CN 2-12 grossly intact. Sensation intact in all extremities. Coordination slightly impaired in BUE. No tremor noted in 4 extremities. POSTURE and GAIT: Sitting posture impaired. Balance decreased. Gait slowed with rolling walker. PSYCH: Alert, oriented x3, affect appears flattened. Insight appears impaired at times. - Constitutional Vitals: Vital Signs - 12hr 12/18/18 12/18/18 07:41 11:36 Temperature 36.8 C 36.4 C L Pulse Rate 61 69 Respiratory 18 18 Rate Blood Pressure 142/107 134/67 O2 Sat by Pulse 98 100 Oximetry - Allied health notes Allied health notes reviewed: nursing, PT, OT FIMS assessment as documented by PT/OT/ST: Social interaction/Memory/Problem solving Social Interaction FIM Score 4. Minimal Assistance (Interacts appropriately 75-90%.) Memory FIM Score 5. Supervision (Needs cueing <10%, stressful/ unfamiliar situations.) Problem Solving FIM Score 4. Minimal Assistance (Solves routine problems 75-90%.) Transfers Mode of Locomotion: Wheelchair Bed/Chair/Wheelchair Transfers 4. Minimal Assistance (Patient = 75% or more. FIM Score Needs touching.) Locomotion- Stairs Device used on Stairs Handrail/s Number of Stairs Ascended/ 1 Descended Patient used handrail/support: Yes Stairs FIM Score 1. Total Assistance (Pt. < 25%, 2 person assist , or <4 stairs.) Locomotion- walk/wheelchair Most Frequent Mode of Wheelchair Locomotion: Ambulation Distance 90 Walking FIM Score 2. Maximal Assistance (Patient = 25% or more. Minimum of 50 ft.) Wheelchair Propulsion Distance 150 Wheelchair FIM Score 5. Supervision (Minimum 150 ft. supv./cues or 50 ft. independently.) Eating Eating FIM Score 6. Modified [place] (Special consistency or uses device.) Dressing-lower body Patient retrieves clothing No items: Lower Body Dressing FIM Score 2. Maximal Assistance (Patient = 25% or more) - Labs CBC & Chem 7: 12/15/18 07:59 12/11/18 08:29 Assessment and Plan New onset atrial fibrillation: On rate control and telemetry per cardiology. Appreciate their assistance. Defer anticoagulation at this point due to anemia. PNA and Sepsis (MSSA) with persistent fevers on abx: cont cefazolin until 12/27/18. Monitor for any signs of worsening pneumonia and are leukocytosis. Expect to continue seeing the intermittent fevers and will treat with Tylenol as needed. Patient does have bilateral pulmonary septic emboli. SAMARIA did not show vegetations. Infectious disease also monitoring. Recent Blood cultures negative ESRD on HD: Continue hemodialysis per nephrology and renally dose medications including antibiotics. Hypertension: Continue medications, adjust as needed for normotension. Amlodipine added by cardiology. Anemia: Continue to monitor hemoglobin. Continue erythropoietin. Transfuse as needed. Improved to 7.6 after PRBC Thyroid nodule seen on CT: Recommend follow-up. Possible pseudogout - short course of treatment with colchicine. Due to current abx treatment for septic emboli, will avoid joint aspiration to reduce risk of further infection L4 nerve root impingement at the foramen: Start low-dose gabapentin Z73.6 ADL dysfunction: OT will work on improving ability to perform ADLs (including assistive devices) to increase independence and decrease caregiver burden and improve functional transfers and mobility training. R26.2 Difficulty walking: PT will work on gait training and proper use of assistive devices and advance as appropriate to use of stairs and outside ambulation on uneven surfaces. R26.81 Unsteadiness on feet: PT will work on improving static and dynamic sitting and standing balance as well as proper use of assistive devices to decrease risk of falls. R26.89 Abnormality of gait: PT will work to improve safety and efficiency of gait through neuromotor training and gait training along with instruction on proper use of assistive devices. M62.81 Muscle weakness: PT & OT will work on strengthening exercises to improve functional strength including mixture of closed and open kinetic chain exercises. R53.81 Debility: PT & OT will work on improving overall functional status to improve participation with ADLs, mobility and social involvement. R53.83 Fatigue: PT & OT will work on improving endurance through aerobic exercises and therapeutic activity while monitoring patients tolerance for activity and vital signs as needed. K59.00 Constipation: Bisacodyl supp today. Dulcolax PO and miralax, sorbitol. KUB with moderate stool burden - no obstruction. Enema when necessary. Soapsuds enema today DVT ppx: SCDs, heparin Pain: Continue physical modalities in therapy and pain medications as needed to achieve functional pain control. Add voltaren, lidoderm. Toradol started by nephrology. Sleep: Monitor and address as needed. Bowel: Monitor and address as needed. Appetite: Monitor and address as needed. Discharge planning: Pending therapy progress and care plan meeting. Will continue discussion with therapy team, SW, patient and family. Restrictions/ Precautions: Falls WB status: FWB Functional Hx: ADLs: Independent Cognition: Independent Mobility: No AD Barriers to Discharge: Decreased mobility and ability to perform self care, balance deficits, weakness Estimated Length of Stay: 1418 days Discharge Destination: Home with family per patient today
[2018-12-18] MEDS: ANCEF/NS 1 GM/50 ML 1 GM/50 ML BAG IV SCH (19:00)
[2018-12-19] MEDS: NEURONTIN PO SCH (06:38)
[2018-12-19] MEDS: DICLOFENAC 1% TP SCH ×2 (08:30→14:10)
[2018-12-19] MEDS: LOPRESSOR PO SCH ×2 (08:30→14:01)
[2018-12-19] MEDS: RENVELA PO SCH ×2 (08:30→14:00)
[2018-12-19] MEDS: HEPARIN SUB-Q SCH (10:00)
--- NOTE | 2018-12-19 10:21 | Discharge Summary ---
Providers - Providers Date of Admission: 12/01/18 16:39 Date of discharge: 12/19/18 Attending physician: AELE NELSON III, MD 12/01/18 11:47 Occupational Therapy Evaluate and Treat [CONS] Routine Comment: Reason For Exam: ADL dysfunction Physical Therapy Evaluation and Treat [CONS] Routine Comment: Reason For Exam: Mobility Dysfunction 12/01/18 11:51 Consult to Case Management [CONS] Routine Services Needed at Discharge: Home Health Services Notified:: cm notified 12/01/18 11:52 Consult to Physician [CONS] Routine Comment: Consulting Provider: MONET SOLORZANO Physician Instructions: Reason For Exam: ESRD on HD 12/02/18 07:38 Consult to Physician [CONS] Routine Comment: Consulting Provider: GIGI KHALIL Physician Instructions: Reason For Exam: septic embolic 12/05/18 19:01 Consult to Physician [CONS] Routine Comment: Consulting Provider: DRAKE LYLES Physician Instructions: Reason For Exam: Septic emboli still spiking fevers on abx 12/07/18 17:08 Consult to Dietitian/Nutrition [CONS] Routine Physician Instructions: Reason For Exam: Reason for Consult: Poor oral intake 12/18/18 13:38 Consult to Case Management [CONS] Routine Services Needed at Discharge: Other Notified:: cm notified Comment:: IV Abx at dialysis Additional Physician Instructions: [facility] ([facility]) O: [phone] F: [phone] OUTPATIENT PARENTERAL ANTIBIOTIC THERAPY (OPAT) ORDERS Diagnoses: MSSA bacteremia, HD catheter infection Antimicrobial administration: IV Cefazolin post HD 2 gm qTuesday, 2 gm qThursday and 3 gm qSaturday ending 12/27/2018 Lines: Maintain IV access with weekly dressing changes and locks per protocol. Lab monitoring: - CBC with differential, Creatinine, ALT, AST, CRP once a week every week while on IV antibiotics. Please fax results to [phone] and call [phone] for critical lab results. Belinda Vera MD [facility] Primary care physician: PAN CLEANER Hospitalization Reason for admission: Debility, weakness, sepsis Condition: Fair Pertinent studies: T-spine MRI dated 12/16/2018: Unremarkable L-spine MRI dated 12/16/2018: Degraded by motion artifact but some apparent L4 nerve root impingement, with other degenerative changes seen at L2-L3, L3-L4, and L4-L5. Hospital course: 73-year-old male presented to the ER on November 11 with shortness of breath. He was noted to be febrile. Chest x-ray showed bilateral pneumonia and he was started on cefepime. He was noted to have purulent drainage from his dialysis catheter. It was removed and replaced. He developed altered mental status, MRI was negative. Infectious disease was consulted and started the patient on cefazolin which will be continued until 12/27/2018. His leukocytosis improved however he continued to spike occasional fevers even on antibiotics. Recommendation was made to obtain CT chest abdomen and pelvis which showed septic emboli in the bilateral lungs. SAMARIA was performed looking for cardiac vegetations but none were found. He remains fairly weak and will need continued close monitoring for antibiotic therapy, fevers and leukocytosis, end-stage renal disease and other possible worsening of condition. His primary concern when initially seeing him was constipation, I ordered an enema and suppository last night with fairly good results. Patient made very slow and poor progress with therapy. Our primary goal changed and we opted to discharge him to a halfway facility however he and family both declined. We did clarify to both the patient and his that he needs 24 hour supervision as he is not safe to be at home alone. Also discussed several times that there seems to be some issues with cognition however the patient does not want to participate in the conversation. Discussed with the patient and family that he does have the right to decline are safest discharge option and go home. We have set him up with home health nursing and therapy as well as sources for sitters they can assist with 24-hour care while the family is at work. Primary issue for the patient while he was on the rehabilitation unit tended to involve his bowels. There is a very large stool burden seen on CT chest abdomen and pelvis from the acute care side. We attempted several times to alleviate the issue with rectal treatments including suppositories and enemas (some of which the patient refused) and seemed to be successful finally with a soap suds enema which resulted in numerous large bowel movements and relief from the patient's standpoint. His abdominal pain and rectal spasms precluded him from fully participating in therapy on numerous occasions. It was due to this lack of progress and decreased participation that we opted to move towards discharge. Even with encouragement and notification that that would be our transition the patient's participation did not improve and then we developed roadblocks towards moving towards an appropriate discharge. Patient also consistently complained of right lower leg pain. On numerous exams he never actually looked to be in distress and range of motion weightbearing did not seem to generate any significant distress. On physical exam the patient never quite fit a radicular pain pattern. He always describes the pain as squeezing. There was a negative straight leg raise, negative Homans sign, negative calf squeeze, negative numbness, tingling, electric shocks, burning, etc, no hyperreflexia, intact sensation, no obvious unilateral atrophy. An MRI was ordered by another physician to exclude any septic involvement. On the MRIs there was no evidence of septic involvement. There was heavy motion artifact however the radiologist was able to see that there was a slight L4 nerve root impingement which may indeed be the cause for the patient's continued pain. Based on these findings I have recommended patient obtain an outpatient interventional pain physician consult. Patient stated that he did not have any idea of how to find any of these patients even though I told him he could look him up on the Internet are in the phonebook. I did provide him with 3 local referrals to possible interventional pain physicians that may see him as a patient. I explained to him I do not know these physicians, I have no relationship with them, and I do not know if his insurance accepts them. He may benefit from a L4 TF TRICIA. I discussed with the patient that this is not a cure for the condition however may temporarily alleviate his pain may delay surgery. Patient consistently asked to have this done as an inpatient even though we repeatedly told him it was an outpatient only procedure area he also asked for surgery multiple times which again he is not a surgical candidate at this point. Patient was diagnosed with new onset atrial fibrillation. Cardiology was consulted. He was started on metoprolol for rate control. After starting this medication his blood pressure increased and he was then started on amlodipine. Anticoagulation was deferred due to the patient's fall risk as well as due to his anemia. We'll defer to outpatient cardiology and hematology as to optimal timing to initiate anticoagulation for atrial fibrillation. Hypertension was better controlled with addition of amlodipine which was increased for better control. He'll need a follow-up with his PCP for a thyroid nodule seen on a recent CT on the acute care side. He may need further surveillance for this and/or possible biopsy. Patient has diffuse arthritis and initially stated that he had a history of gout. His condition was not typical for gout as the uric acid was within normal range (5.1), joints were not hot are exquisitely tender to the touch. Due to his recent sepsis and the septic emboli I opted not to ask for a aspiration of the joints. This very well could be pseudogout and it was treated with colch icine for a short period. There was some improvement overall. X-rays were taken of the wrist knees and hip and showed varying degrees of degenerative arthritic changes. Patient continue to be anemic while on the unit and at one point didn't drop below 7. He was transfused one unit of blood in the dialysis suite. Would recommend to continue to monitor his hemoglobin. Iron 96, TIBC 563, ferritin 462.2, vitamin B12 >2000, and folate >20. Pneumonia with MSSA sepsis and pulmonary septic emboli patient will continue on Cefazolin through December 27. A prescription has been written and this has been communicated to his dialysis center. He continued to have some intermittent fevers (MAXIMUM TEMPERATURE 38.6C ) which have dissipated. WBC spiked on December 07 at 12.4 and otherwise has been normal. At time of discharge he required minimal assistance with wheelchair mobility, was modified independent for eating, moderate assistance for transfers, minimal assist for problem solving, supervision for memory and comprehension, max assist for toileting, max assist for ambulation with a rolling walker and was able to ambulate approximately 90 feet at one time, total assist for use of stairs. Disposition: [id number]/TX-[id number] HOME UNDER HOME [facility] Time spent for discharge: >30mins - Discharge Diagnoses (1) Atrial fibrillation with RVR Status: Acute (2) Sepsis Status: Acute Qualifiers: Sepsis type: methicillin susceptible Staphylococcus aureus Sepsis acute organ dysfunction status: unspecified Qualified Code(s): A41.01 - Sepsis due to Methicillin susceptible Staphylococcus aureus (3) Weakness Status: Chronic (4) End stage renal disease Status: Chronic Core Measure Documentation - Palliative Care Palliative Care/ Comfort Measures: Not Applicable - Core Measures Any of the following diagnoses?: none Exam - Physical Exam Narrative exam: MUSCULOSKELETAL SPECIALTY EXAM CONSTITUTIONAL: Well developed, well nourished, appropriately groomed EENT: EOMI. Hearing intact to soft voice RESPIRATORY: Clear to auscultation bilaterally, no increased work of breathing CARDIOVASCULAR: RRR, no edema. All extremities warm. GI: + bowel sounds, soft, NTTP, distended. INTEGUMENTARY: Normal, no lesion, rash, masses or bruising noted in extremities. MUSCULOSKELETAL: Effusions at the bilateral wrists noted. No noted effusions on visual exam at the knees. Otherwise, BUE and BLE normal without defect, crepitus, subluxation or TTP. BUE 4-/5, reduced ROM, with normal tone. BLE 4-/5 reduced ROM, with normal tone. NEURO: CN 2-12 grossly intact. Sensation intact in all extremities. No tremor noted in 4 extremities. POSTURE and GAIT: Sitting posture impaired. Balance decreased. Gait slowed with rolling walker. PSYCH: Alert, oriented x3, affect appears flattened. Insight appears impaired at times. - Constitutional Vitals: Temp Pulse Resp BP Pulse Ox 36.6 C 62 16 158/75 96 12/19/18 07:57 12/19/18 07:57 12/19/18 07:57 12/19/18 07:57 12/19/18 07:57 Plan Activity: advance as tolerated, no driving until cleared by PCP, up only with assistance, fall precautions Weight Bearing Status: Full Weight Bearing Diet: renal Special Instructions: record daily weights, record daily BP diary, physical therapy, occupational therapy, home health RN Durable Medical Equipment Needed Upon Discharge: Wheelchair, Bedside Commode Follow up with: PRIMARY MD SARTHAK [Primary Care Provider] - 7 Days DIETER MALCOLM MD [Staff Physician] - 7 Days (New onset of Afib. Not on A/C due to current anemia and fall risk.) BELINDA VERA MD [Staff Physician] - 7 Days (Follow up from MSSA bacteremia (vascat) with pulmonary septic emboli. On Cefazolin thru 12/27) GIGI KHALIL MD [Staff Physician] - 7 Days (Anemia) MONET SOLORZANO MD [Staff Physician] - 7 Days (ESRD on HD) Prescriptions: Metoprolol [Lopressor TAB] 100 mg PO TID 30 Days #90 tablet Polyethylene Glycol 3350 [Miralax 3350] 17 gm PO QDAY 30 Days powd.pack Gabapentin [Neurontin] 100 mg PO Q8HR 30 Days #90 capsule amLODIPine [Norvasc] 7.5 mg PO QDAY 30 Days #45 tablet oxyCODONE /ACETAMINOPHEN [Percocet 5/325 mg] 1 tab PO BID PRN #20 tablet PRN Reason: Pain, Moderate (4-6) Sevelamer Carbonate [Renvela] 2,400 mg PO AC 30 Days tablet
[2018-12-19] MEDS: PROCRIT IV SCH (13:00)
[2018-12-19] MEDS ORDERED: NACL 0.9 (PRIMING MACHINE ONLY DIALYSIS) MC ONE (13:25)
[2018-12-19] MEDS: LIDODERM 5% TD SCH (13:34)
[2018-12-19] MEDS: NORVASC PO SCH (14:00)
[2018-12-19] MEDS: MIRALAX 3350 PO SCH (14:02)
[2018-12-19 17:13] VITALS: BP 159/84
== END 2018-12-19 15:22 | disposition home health service (06) | DRG 947 ==
LOC: UNDOADMIN 10:36 → 3A 10:36 → 3B 16:39
PROVIDERS: ADMIT Physical Medicine & Rehabilitation; ATTEND Physical Medicine & Rehabilitation
PROC: 30233N1 Transfusion of Nonautologous Red Blood Cells into Peripheral Vein, Percutaneous Approach (ICD-10-PCS; principal; 2018-12-08)
DX: R53.81 Other malaise (principal); N18.6 End stage renal disease; A41.01 Sepsis due to Methicillin susceptible Staphylococcus aureus; J18.9 Pneumonia, unspecified organism; I12.0 Hypertensive chronic kidney disease with stage 5 chronic kidney disease or end stage renal disease; N25.81 Secondary hyperparathyroidism of renal origin; I76 Septic arterial embolism; I48.91 Unspecified atrial fibrillation; I25.10 Atherosclerotic heart disease of native coronary artery without angina pectoris; M19.90 Unspecified osteoarthritis, unspecified site; E21.3 Hyperparathyroidism, unspecified; M62.81 Muscle weakness (generalized); K59.00 Constipation, unspecified; D63.1 Anemia in chronic kidney disease; Z22.321 Carrier or suspected carrier of Methicillin susceptible Staphylococcus aureus; Z83.3 Family history of diabetes mellitus; Z82.49 Family history of ischemic heart disease and other diseases of the circulatory system; Z79.899 Other long term (current) drug therapy; Z99.2 Dependence on renal dialysis
CPT/HCPCS: 36415; 36430; 72146; 72148; 74018; 80048; 80053; 80074; 82270; 83970; 84100; 84439; 84443; 84550; 85025; 85027; 86850; 86900; 86901; 86920; 87040; 93005; 93010; 94760; G0378; J0690; J0885; J1644; J1885; J7030; J7050; P9016; Q0162

== ENCOUNTER 2018-12-27 20:20 | Emergency (ER) | payer BC, MEDICARE ==
--- NOTE | 2018-12-27 21:51 | Cat Scan Report ---
CT ABDOMEN AND PELVIS WITHOUT CONTRAST INDICATION: Constipation, abdominal pain CONTRAST: Without IV COMPARISON: 11/26/[address] scans at this location are performed using CT dose reduction for ALARA by means of automated e xposure control. FINDINGS: The L3 and L4 vertebral bodies show increasing irregular lucency at the lower and anterior aspects compared with prior study. Previously the lower end plates of both vertebral bodies showed wh at appear to be Schmorl's nodes with sclerotic borders as well as mild degenerative type change anter iorly, again with sclerosis. On current in the anterior lower margin of the L3 vertebral body there i s much more extensive lucency without sclerosis though the central lower end plate lucency is unchang ed with a sclerotic border. However, in the inferior endplate of the L4 vertebral body there is exten sive new lucency without sclerotic borders in multiple areas. The superior endplate of L4 does not sh ow obvious change but the superior endplate of the L5 vertebral body shows a small amount of new luce ncy in several areas. At L4-5 there also appears to be a mild increase in surrounding soft tissue den sity which is not as noticeable at L3-4. No other bony changes are seen. On previous study there were small left and minimal right pleural effusions and multiple areas of bib asilar consolidation and patchy nodularity were present. The right pleural effusion is now small to m oderate in size and left pleural effusion is not significantly changed. Left basilar consolidation co ntinues though is less prominent. A rounded area of consolidation is seen which previously was more o bscured by dense surrounding consolidated lung. This area measures 3.6 cm in diameter and shows some central lucency though not obvious erik abscess and no air-fluid level is seen. Other basilar nodule s and patchy nodular type infiltrates in general have decreased in prominence. There is more atelecta sis now in the right lower lobe in association with the increasing pleural effusion however. Mild diffuse subcutaneous edema is noted which was not seen previously. Mild edema is seen throughout the abdomen and pelvis. There is now mild diffuse ascites. Fatty right inguinal hernia is again seen with small fatty umbilical hernia but no new abdominal wall herniations are noted. No pneumoperitone um is seen. Several hepatic cysts are again seen without change. Liver is at the upper end of the normal range in size and has a length of 17.2 cm. Spleen shows no abnormalities. Small left renal cysts are again se en.. Both kidneys show mild atrophic change. No urinary obstructive changes are noted. Bilateral adre nal nodularity is stable. Large amount of stool is seen in the rectum suggesting rectal impaction. No proximal dilatation is se en. Mild colonic diverticulosis is seen without evidence of diverticulitis. Appendix is partially jael rounded with ascitic fluid but shows no obvious abnormalities. No evidence of bowel obstruction is se en. No lymphadenopathy is noted. Gallbladder is distended and shows increased density which may represent vicarious excretion of contr ast though I do not show a contrasted study recently at this institution. No wall thickening or defin ite calculi are seen. No biliary dilatation is noted. Pancreas shows a small calcification again as c an be seen with chronic pancreatitis but no definite acute abnormalities are seen. IMPRESSION: 1. Evidence of anasarca with increasing pleural effusions, development of mild ascites, and diffuse s ubcutaneous and internal edema 2. Lucencies involving the L3-4 and L4-5 areas which are new as described above and strongly suggest acute discitis 3. Bilateral areas of nodularity and consolidation are generally improved compared to prior study tho ugh more atelectatic change is seen now on the right lower lobe in association with the increasing ri ght pleural effusion. The patchy nodular infiltrates continue to suggest septic embolic process. Most prominent focal masslike area is in the left lower lobe and early stage in abscess formation is poss ible though I do not see erik abscess at this time. Follow-up is recommended. 4. On short-term follow-up stable appearance of bilateral adrenal nodularity. Recommend follow-up. 5. Evidence of rectal impaction Signer Name: Frederic Velasquez MD Signed: 12/27/2018 9:46 PM Workstation Name: [id number]
[2018-12-27 22:12] LABS: INR 1.5 (0.87-1.13)
[2018-12-27 22:17] LABS: Albumin 2.5 g/dL (3.9-5); BUN/Creatinine Ratio 5; Blood Urea Nitrogen 26 mg/dL (9-20); Calcium 9.4 mg/dL (8.4-10.2); Hemolysis Index 0
[2018-12-27 22:18] LABS: Alanine Aminotransferase < 5 units/L (7-56)
[2018-12-27 22:21] LABS: Hemoglobin 7.2 gm/dl (11.8-15.2); Red Blood Count 2.57 M/mm3 (3.65-5.03)
[2018-12-27 22:22] LABS: Basophils # (Auto) 0.1 K/mm3 (0.0-0.1); Basophils % (Auto) 0.9 % (0.0-1.8); Eosinophils # (Auto) 0.1 K/mm3 (0.0-0.4); Hematocrit 21.4 % (35.5-45.6); Lymphocytes % (Auto) 27.9 % (13.4-35.0); Mean Corpuscular HGB Conc 33 % (32-34); Mean Corpuscular Volume 83 fl (84-94); Monocytes % (Auto) 14.4 % (0.0-7.3); Platelet Count 185 K/mm3 (140-440); Red Cell Distribution Width 17.7 % (13.2-15.2)
--- NOTE | 2018-12-27 22:47 | Emergency Department Report ---
ED Abdominal Pain HPI - General Chief Complaint: Abdominal Pain Stated Complaint: BACK/ABD PAIN Time Seen by Provider: 12/27/18 20:41 Source: EMS Mode of arrival: Stretcher Limitations: Physical Limitation - History of Present Illness Initial Comments: ESRD on HD. Reports he was admitted to the hospital for the same issue and stayed a month. Reports symptoms did not go away completely since he left the hospital. MD Complaint: abdominal pain -: month(s) Location: periumbilical Radiation: none Migration to: no migration Severity: mild Severity scale (0 -10): 1 Quality: aching Consistency: intermittent Improves With: nothing Worsens With: nothing Associated Symptoms: denies: nausea, vomiting, diarrhea, fever, chills, constipation, dysuria, hematemesis, hematochezia, melena, hematuria, anorexia, syncope - Related Data Previous Rx's Medication Instructions Recorded Last Taken Type Epoetin Jeramy 10,000 Unit [Procrit] 10,000 unit IV TUTHSA vial 12/19/18 Unknown Rx Gabapentin 100 mg PO Q8HR 30 Days #90 capsule 12/19/18 Unknown Rx Metoprolol [Lopressor TAB] 100 mg PO TID 30 Days #90 tablet 12/19/18 Unknown Rx Polyethylene Glycol 3350 [Miralax 17 gm PO QDAY 30 Days powd.pack 12/19/18 U nknown Rx 3350] Sevelamer Carbonate [Renvela] 2,400 mg PO AC 30 Days tablet 12/19/18 Unknown Rx amLODIPine 7.5 mg PO QDAY 30 Days #45 tablet 12/19/18 Unknown Rx oxyCODONE /ACETAMINOPHEN [Percocet 1 tab PO BID PRN #20 tablet 12/19/18 Unknown Rx 5/325 mg] Allergies Allergy/AdvReac Type Severity Reaction Status Date / Time No Known Allergies Allergy Verified 08/27/18 16:19 ED Review of Systems ROS: Stated complaint: BACK/ABD PAIN Other details as noted in HPI Other: GENERAL: No weight change, fatigue, fever, chills, or night sweats SKIN: No changes in skin or hair, no itching, no rashes, no jaundice HEAD: No trauma, headache, or visual changes EYES: No blurriness, tearing, itching, acute visual loss, conjunctival discoloration, or scleral icterus EARS: No hearing loss, tinnitus, vertigo, or earache NOSE: No rhinorrhea, stuffiness, sneezing, itching, or epistaxis MOUTH: No bleeding gums, hoarseness, sore throat, or swelling CARDIAC: No new murmur, chest pain, palpitations, dyspnea on exertion, orthopnea, PND, or edema RESPIRATORY: No shortness of breath, wheeze, cough, sputum production, hemoptysis, pneumonia, asthma, bronchitis, or emphysema GI: Abdominal pain. No change in appetite, nausea, vomiting, dysphagia, diarrhea, constipation, hematemesis, melena, hematochezia URINARY: No frequency, urgency, polyuria, dysuria, hematuria, or incontinence MUSCULOSKELETAL: No muscle weakness, joint stiffness, decrease in range of motion, redness, swelling NEUROLOGIC: No headache, syncope, loss of sensation, numbness, tingling, tremors, weakness, paralysis, seizures HEMATOLOGIC: No anemia, easy bruising, bleeding, petechiae, or purpura ENDOCRINE: No hot or cold intolerance, sweating, polyuria, polydipsia or, polyphagia no thyroid problems PSYCHIATRIC: No change in mood, no anxiety, no depression ED Past Medical Hx - Past Medical History Previous Medical History?: Yes Hx Hypertension: Yes Hx Heart Attack/AMI: No Hx Liver Disease: No Hx Renal Disease: Yes (HD Tu,,Fri) Hx Arthritis: Yes ("Different days, different joints") Additional medical history: ESRD, Hematuria, Proteinuria, Noncompliant with medical treatment, hypokalemis, hyperparathyroidism, pulmonary sepsis, - Surgical History Past Surgical History?: Yes Additional Surgical History: hemmoroidectomy. Right chest Vas-Cath - Social History Smoking Status: Never Smoker Substance Use Type: None - Medications Home Medications: Home Medications Medication Instructions Recorded Confirmed Last Taken Type Epoetin Jeramy 10,000 Unit [Procrit] 10,000 unit IV TUTHSA vial 12/19/18 Unknown Rx Gabapentin 100 mg PO Q8HR 30 Days #90 capsule 12/19/18 Unknown Rx Metoprolol [Lopressor TAB] 100 mg PO TID 30 Days #90 tablet 12/19/18 Unknown Rx Polyethylene Glycol 3350 [Miralax 17 gm PO QDAY 30 Days powd.pack 12/19/18 Unknown Rx 3350] Sevelamer Carbonate [Renvela] 2,400 mg PO AC 30 Days tablet 12/19/18 Unknown Rx amLODIPine 7.5 mg PO QDAY 30 Days #45 tablet 12/19/18 Unknown Rx oxyCODONE /ACETAMINOPHEN [Percocet 1 tab PO BID PRN #20 tablet 12/19/18 Unknown Rx 5/325 mg] ED Physical Exam - General Limitations: Physical Limitation - Other Other exam information: GENERAL: Patient in no acute distress resting comfortably on the stretcher HEAD: Normocephalic, atraumatic EYES: PERRLA, EOM intact, no scleral icterus, no conjunctival hemorrhage, visual cochran and acuity wnl NOSE: No tenderness, discharge, sinus tenderness MOUTH: No erythema, bleeding, exudate HEART: Regular rate and rhythm, no murmur, S1-S2 are auscultated, no edema, pulses are symmetric LUNGS: No respiratory distress. Bilateral breath sounds, No tachypnea, No retractions, No wheezing, rales, rhonchi ABDOMEN: Normal bowel sounds, abdomen soft, no tenderness, no rebound, no guarding, no distention, no masses, no CVA tenderness MUSCULOSKELETAL: Normal joint range of motion, no redness, no swelling, no tenderness NEUROLOGIC:Alert and Oriented, Cranial nerves intact, normal sensation, normal strength, no cerebellar deficit SKIN: Skin is warm and dry, no wounds, no rashes ED Course Vital Signs 12/27/18 20:47 Temperature 98.8 F Pulse Rate 65 Respiratory 13 Rate Blood Pressure 155/84 Blood Pressure 155/84 [Left] O2 Sat by Pulse 85 Oximetry ED Medical Decision Making - Lab Data Result diagrams: 12/27/18 21:38 12/27/18 21:38 Laboratory Results - last 24 hr 12/27/18 12/27/18 12/27/18 21:38 21:38 21:38 WBC 7.1 RBC 2.57 L Hgb 7.2 L Hct 21.4 L MCV 83 L MCH 28 MCHC 33 RDW 17.7 H Plt Count 185 Lymph % (Auto) 27.9 Mcpherson % (Auto) 14.4 H Eos % (Auto) 1.0 Baso % (Auto) 0.9 Lymph # 2.0 Mcpherson # 1.0 H Eos # 0.1 Baso # 0.1 Seg Neutrophils % 55.8 Seg Neutrophils # 4.0 PT 17.9 H INR 1.50 H APTT 42.0 H Sodium 131 L Potassium 3.7 Chloride 91.5 L Carbon Dioxide 25 Anion Gap 18 BUN 26 H Creatinine 5.4 H Estimated GFR 13 BUN/Creatinine Ratio 5 Glucose 103 H Calcium 9.4 Total Bilirubin 0.40 AST 20 ALT < 5 L Alkaline Phosphatase 109 Total Protein 8.2 Albumin 2.5 L Albumin/Globulin Ratio 0.4 - EKG Data When compared to previous EKG there are: no significant change - Radiology Data Radiology results: report reviewed - Medical Decision Making Patient comfortable. Resting comfortably in the room sleeping. Patient with chronic symptoms. No acute decline identified in the ER. Updated with results. Plan discharge with outpatient follow up. Return if any worsening. Critical care attestation.: If time is entered above; I have spent that time in minutes in the direct care o f this critically ill patient, excluding procedure time. ED Disposition Clinical Impression: ESRD on hemodialysis Abdominal pain Qualifiers: Abdominal location: unspecified location Qualified Code(s): R10.9 - Unspecified abdominal pain Disposition: TO HOME OR SELFCARE Is pt being admited?: No Condition: Stable Instructions: Chronic Kidney Disease (ED), Acute Abdominal Pain (ED) Referrals: PRIMARY MD SARTHAK [Primary Care Provider] - 2-3 Days [facility] [Provider Group] - 2-3 Days Time of Disposition: 22:45
[2018-12-28] MEDS ORDERED: ONDANSETRON 4 MG/2 ML INJ IV ONE (04:49)
[2018-12-28] MEDS ORDERED: MORPHINE 4 MG/1 ML INJ IV ONE (04:50)
[2018-12-28 17:46] VITALS: BP 136/73
== END 2018-12-28 17:03 | disposition home or self-care (01) ==
LOC: ED 20:20
DX: R10.33 Periumbilical pain (principal); E11.22 Type 2 diabetes mellitus with diabetic chronic kidney disease; I12.0 Hypertensive chronic kidney disease with stage 5 chronic kidney disease or end stage renal disease; N18.6 End stage renal disease; M19.90 Unspecified osteoarthritis, unspecified site; Z99.2 Dependence on renal dialysis; Z98.890 Other specified postprocedural states; Z79.899 Other long term (current) drug therapy
CPT/HCPCS: 36415; 74176; 80053; 85025; 85610; 85730; 93005; 93010; 96374; 96375; 99285; J2270; J2405

== ENCOUNTER 2018-12-31 14:03 | Emergency (ER) | payer BC, MEDICARE ==
[2018-12-31 15:08] LABS: Basophils # (Auto) 0.1 K/mm3 (0.0-0.1); Basophils % (Auto) 1.7 % (0.0-1.8); Eosinophils % (Auto) 0.5 % (0.0-4.3); Hematocrit 25.1 % (35.5-45.6); Hemoglobin 8.5 gm/dl (11.8-15.2); Lymphocytes # (Auto) 1.7 K/mm3 (1.2-5.4); Lymphocytes % (Auto) 19.6 % (13.4-35.0); Mean Corpuscular HGB Conc 34 % (32-34); Mean Corpuscular Volume 84 fl (84-94); Monocytes # (Auto) 0.8 K/mm3 (0.0-0.8); Monocytes % (Auto) 9.4 % (0.0-7.3); Platelet Count 233 K/mm3 (140-440); Red Blood Count 2.99 M/mm3 (3.65-5.03); Red Cell Distribution Width 18.6 % (13.2-15.2)
[2018-12-31 15:18] LABS: INR 1.61 (0.87-1.13)
[2018-12-31 15:57] LABS: Albumin 2.7 g/dL (3.9-5); BUN/Creatinine Ratio 4; Blood Urea Nitrogen 11 mg/dL (9-20); Calcium 8.7 mg/dL (8.4-10.2); Hemolysis Index 6
[2018-12-31 16:01] LABS: Alanine Aminotransferase 5 units/L (7-56)
[2018-12-31 16:18] LABS: Chol/HDL Ratio 4.76 %; HDL Cholesterol 21 mg/dL (40-59); LDL Cholesterol,Direct 49 mg/dL (50-130)
[2018-12-31 18:59] VITALS: BP 145/73
[2018-12-31] MEDS ORDERED: ACETAMINOPHEN 325 MG TAB PO ONE (19:37)
--- NOTE | 2018-12-31 20:53 | Emergency Department Report ---
ED General Adult HPI - General Chief complaint: Abdominal Pain Stated complaint: BACK PAIN Time Seen by Provider: 12/31/18 16:34 Source: patient, EMS ( EMS documentation not available at time of chart dictation ), RN notes reviewed, old records reviewed Mode of arrival: Stretcher Limitations: Other (the patient is a poor historian) - History of Present Illness Initial comments: This is a 73-year-old gentleman. This patient is not known to this provider previously. Has a history of end-stage renal disease, question hypertension, left-sided thoracic permacath placement, recently admitted to this hospital for MSSA bacteremia. Please see his discharge summary for the full details of his pertinent past medical history. Patient was seen at this hospital a few days ago for abdominal pain and or back pain, and had a CT scan of the abdomen pelvis demonstrating chronic findings. The patient presents today with a complaint of nontraumatic right hip pain, right anterior quadricep pain, and lower back pain. He is also asking for help with general ambulation. He makes no complaint of headache, neck pain, chest pain, upper abdominal pain, shortness of breath, or additional arthralgias. On initial evaluation, he is sleeping comfortably. Patient reportedly has chronic constipation. He was seen for similar symptoms at this hospital by my colleague on December 27, and exam, CT scan findings appear to be chronic. -: week(s) Location: back, right, lower extremity Radiation: non-radiation Quality: aching Consistency: intermittent Improves with: rest Worsens with: movement - Related Data Previous Rx's Medication Instructions Recorded Last Taken Type Epoetin Jeramy 10,000 Unit [Procrit] 10,000 unit IV TUTHSA vial 12/19/18 Unknown Rx Gabapentin 100 mg PO Q8HR 30 Days #90 capsule 12/19/18 Unknown Rx Metoprolol [Lopressor TAB] 100 mg PO TID 30 Days #90 tablet 12/19/18 Unknown Rx Polyethylene Glycol 3350 [Miralax 17 gm PO QDAY 30 Days powd.pack 12/19/18 Unknown Rx 3350] Sevelamer Carbonate [Renvela] 2,400 mg PO AC 30 Days tablet 12/19/18 Unknown Rx amLODIPine 7.5 mg PO QDAY 30 Days #45 tablet 12/19/18 Unknown Rx oxyCODONE /ACETAMINOPHEN [Percocet 1 tab PO BID PRN #20 tablet 12/19/18 Unknown Rx 5/325 mg] Allergies Allergy/AdvReac Type Severity Reaction Status Date / Time No Known Allergies Allergy Verified 08/27/18 16:19 ED Review of Systems ROS: Stated complaint: BACK PAIN Other details as noted in HPI Constitutional: denies: fever Eyes: denies: eye discharge ENT: denies: congestion Cardiovascular: denies: syncope Gastrointestinal: constipation Genitourinary: denies: dysuria Musculoskeletal: back pain, arthralgia, myalgia Skin: denies: lesions Neurological: weakness (global) ED Past Medical Hx - Past Medical History Hx Hypertension: Yes Hx Heart Attack/AMI: No Hx Liver Disease: No Hx Renal Disease: Yes (HD Tues,Thurs,Sat) Hx Arthritis: Yes ("Different days, different joints") Additional medical history: ESRD, Hematuria, Proteinuria, Noncompliant with medical treatment, hypokalemis, hyperparathyroidism, pulmonary sepsis, - Surgical History Additional Surgical History: hemmoroidectomy. Right chest Vas-Cath - Social History Smoking Status: Never Smoker - Medications Home Medications: Home Medications Medication Instructions Recorded Confirmed Last Taken Type Epoetin Jeramy 10,000 Unit [Procrit] 10,000 unit IV TUTHSA vial 12/19/18 Unknown Rx Gabapentin 100 mg PO Q8HR 30 Days #90 capsule 12/19/18 Unknown Rx Metoprolol [Lopressor TAB] 100 mg PO TID 30 Days #90 tablet 12/19/18 Unknown Rx Polyethylene Glycol 3350 [Miralax 17 gm PO QDAY 30 Days powd.pack 12/19/18 Unknown Rx 3350] Sevelamer Carbonate [Renvela] 2,400 mg PO AC 30 Days tablet 12/19/18 Unknown Rx amLODIPine 7.5 mg PO QDAY 30 Days #45 tablet 12/19/18 Unknown Rx oxyCODONE /ACETAMINOPHEN [Percocet 1 tab PO BID PRN #20 tablet 12/19/18 Unknown Rx 5/325 mg] ED Physical Exam - General Limitations: No Limitations General appearance: alert, in no apparent distress - Head Head exam: Present: atraumatic, normocephalic - Eye Eye exam: Present: normal appearance, EOMI. Absent: nystagmus - ENT ENT exam: Present: normal exam, normal orophraynx, mucous membranes moist, normal external ear exam - Neck Neck exam: Present: normal inspection, full ROM. Absent: tenderness, meningismus - Respiratory Respiratory exam: Present: normal lung sounds bilaterally, other (there is a left-sided thoracic permacath noted, with no redness, pus or streaking). Absent: respiratory distress, chest wall tenderness - Cardiovascular Cardiovascular Exam: Present: regular rate, normal rhythm, normal heart sounds. Absent: bradycardia, tachycardia, irregular rhythm, systolic murmur, diastolic murmur, rubs, gallop - GI/Abdominal GI/Abdominal exam: Present: soft, normal bowel sounds. Absent: distended, tenderness, guarding, rebound, rigid, pulsatile mass - Rectal Rectal exam: Present: deferred - Extremities Exam Extremities exam: Present: normal inspection, full ROM, other (2+ pulses noted in the bilateral upper, lower extremities. There is no long bone tenderness. Musculoskeletal compartments are soft. The pelvis is stable.). Absent: pedal edema, joint swelling, calf tenderness - Back Exam Back exam: Present: normal inspection, full ROM. Absent: tenderness, CVA tender ness (R), CVA tenderness (L), paraspinal tenderness, vertebral tenderness - Neurological Exam Neurological exam: Present: alert, other (there is no facial droop. The tongue is midline. Extraocular movements are intact bilaterally. Patient speaking in full complete sentences. Shoulder shrug is intact bilaterally. Hearing is grossly intact bilaterally. 5/5 strength 4 extremities. Sensation intact to light touch in 4 extremities.) - Psychiatric Psychiatric exam: Present: flat affect - Skin Skin exam: Present: warm, dry, intact, normal color. Absent: rash ED Course Vital Signs 12/31/18 12/31/18 12/31/18 14:35 15:11 15:33 Temperature 98.5 F Pulse Rate 88 98 H Respiratory 18 16 Rate Blood Pressure 145/94 Blood Pressure 142/84 [Right] O2 Sat by Pulse 100 98 95 Oximetry 12/31/18 12/31/18 12/31/18 16:45 18:03 18:58 Temperature Pulse Rate 95 H 85 85 Respiratory 16 16 16 Rate Blood Pressure Blood Pressure 158/91 145/73 [Right] O2 Sat by Pulse 97 100 95 Oximetry ED Medical Decision Making - Lab Data Result diagrams: 12/31/18 14:57 12/31/18 15:23 Vital Signs 12/31/18 12/31/18 12/31/18 14:35 15:11 15:33 Temperature 98.5 F Pulse Rate 88 98 H Respiratory 18 16 Rate Blood Pressure 145/94 Blood Pressure 142/84 [Right] O2 Sat by Pulse 100 98 95 Oximetry 12/31/18 12/31/18 12/31/18 16:45 18:03 18:58 Temperature Pulse Rate 95 H 85 85 Respiratory 16 16 16 Rate Blood Pressure Blood Pressure 158/91 145/73 [Right] O2 Sat by Pulse 97 100 95 Oximetry Lab Results 12/31/18 12/31/18 12/31/18 Range/Units 14:57 14:57 15:23 WBC 8.4 (4.5-11.0) K/mm3 RBC 2.99 L (3.65-5.03) M/mm3 Hgb 8.5 L (11.8-15.2) gm/dl Hct 25.1 L (35.5-45.6) % MCV 84 (84-94) fl MCH 28 (28-32) pg MCHC 34 (32-34) % RDW 18.6 H (13.2-15.2) % Plt Count 233 (140-440) K/mm3 Lymph % (Auto) 19.6 (13.4-35.0) % [place] % (Auto) 9.4 H (0.0-7.3) % Eos % (Auto) 0.5 (0.0-4.3) % Baso % (Auto) 1.7 (0.0-1.8) % Lymph # 1.7 (1.2-5.4) K/mm3 [place] # 0.8 (0.0-0.8) K/mm3 Eos # 0.0 (0.0-0.4) K/mm3 Baso # 0.1 (0.0-0.1) K/mm3 Seg Neutrophils % 68.8 (40.0-70.0) % Seg Neutrophils # 5.8 (1.8-7.7) K/mm3 PT 18.9 H (12.2-14.9) Sec. INR 1.61 H (0.87-1.13) Sodium (137-145) mmol/L Potassium (3.6-5.0) mmol/L Chloride (98-107) mmol/L Carbon Dioxide (22-30) mmol/L Anion Gap mmol/L BUN (9-20) mg/dL Creatinine (0.8-1.5) mg/dL Estimated GFR ml/min BUN/Creatinine Ratio % Glucose (75-100) mg/dL Calcium (8.4-10.2) mg/dL Total Bilirubin (0.1-1.2) mg/dL AST (5-40) units/L ALT (7-56) units/L Alkaline Phosphatase (35-129) units/L Troponin T (0.00-0.029) ng/mL NT-Pro-B Natriuret Pep (0-900) pg/mL Total Protein (6.3-8.2) g/dL Albumin (3.9-5) g/dL Albumin/Globulin Ratio % Triglycerides (2-149) mg/dL Cholesterol (50-199) mg/dL LDL Cholesterol Direct (50-130) mg/dL HDL Cholesterol (40-59) mg/dL Cholesterol/HDL Ratio % Lipase 9 L (13-60) units/L //19 Range/Units 15:23 WBC (4.5-11.0) K/mm3 RBC (3.65-5.03) M/mm3 Hgb (11.8-15.2) gm/dl Hct (35.5-45.6) % MCV (84-94) fl MCH (28-32) pg MCHC (32-34) % RDW (13.2-15.2) % Plt Count (140-440) K/mm3 Lymph % (Auto) (13.4-35.0) % [place] % (Auto) (0.0-7.3) % Eos % (Auto) (0.0-4.3) % Baso % (Auto) (0.0-1.8) % Lymph # (1.2-5.4) K/mm3 [place] # (0.0-0.8) K/mm3 Eos # (0.0-0.4) K/mm3 Baso # (0.0-0.1) K/mm3 Seg Neutrophils % (40.0-70.0) % Seg Neutrophils # (1.8-7.7) K/mm3 PT (12.2-14.9) Sec. INR (0.87-1.13) Sodium 139 D (137-145) mmol/L Potassium 3.2 L (3.6-5.0) mmol/L Chloride 96.2 L (98-107) mmol/L Carbon Dioxide 27 (22-30) mmol/L Anion Gap 19 mmol/L BUN 11 (9-20) mg/dL Creatinine 2.9 H (0.8-1.5) mg/dL Estimated GFR 26 ml/min BUN/Creatinine Ratio 4 % Glucose 122 H (75-100) mg/dL Calcium 8.7 (8.4-10.2) mg/dL Total Bilirubin 0.50 (0.1-1.2) mg/dL AST 26 (5-40) units/L ALT 5 L (7-56) units/L Alkaline Phosphatase 113 (35-129) units/L Troponin T 0.325 H* (0.00-0.029) ng/mL NT-Pro-B Natriuret Pep > 00708 H (0-900) pg/mL Total Protein 8.3 H (6.3-8.2) g/dL Albumin 2.7 L (3.9-5) g/dL Albumin/Globulin Ratio 0.5 % Triglycerides 146 (2-149) mg/dL Cholesterol 100 (50-199) mg/dL LDL Cholesterol Direct 49 L (50-130) mg/dL HDL Cholesterol 21 L (40-59) mg/dL Cholesterol/HDL Ratio 4.76 % Lipase (13-60) units/L - Radiology Data Radiology results: pending, report reviewed, image reviewed Prior imaging studies are reviewed and appreciated. - Medical Decision Making Parental diagnosis, including but not limited to: End-stage renal disease, sacroiliitis, constipation, chronic somatic pain Assessment and plan: 73-year-old gentleman status post prolonged hospitalization, had extensive workup and evaluation, discharged, was seen in this department a few days ago for other nonspecific complaints, now with multiple nonspecific and multiple complaints. On initial evaluation he is sleeping comfortably, and in no acute distress. He is afebrile with reassuring vital signs. Screening laboratory studies were sent prior to my evaluation. Elevated troponin is likely a type II troponin leak, likely secondary to chronic renal insufficiency. He does not appear to be fluid overloaded at this time. He reportedly had dialysis earlier on today. He is resting comfortable be in his stretcher and in no acute distress. He moves 4 extremities without difficulty. He does not appear to have an emergent medical condition at this time that requires advanced imaging, or hospitalization. Critical care attestation.: If time is entered above; I have spent that time in minutes in the direct care of this critically ill patient, excluding procedure time. ED Disposition Clinical Impression: ESRD on hemodialysis, Joint pain Disposition: TO HOME OR SELFCARE Is pt being admited?: No Does the pt Need Aspirin: No Condition: Stable Additional Instructions: Continue outpatient medications. Patient may take Tylenol, [id number], 325 mg, by mouth, every 4-6 hours, as needed for pain. Return to the emergency room right away with new, worsened, different symptoms, or symptoms not present on the initial emergency room evaluation. 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 Referrals: AYAN JACKSON DO [Staff Physician] - 3-5 Days
== END 2019-01-01 01:00 | disposition home or self-care (01) ==
LOC: ED 14:03
DX: M25.551 Pain in right hip (principal); M54.9 Dorsalgia, unspecified; M25.50 Pain in unspecified joint; I12.0 Hypertensive chronic kidney disease with stage 5 chronic kidney disease or end stage renal disease; N18.6 End stage renal disease; Z99.2 Dependence on renal dialysis; M19.90 Unspecified osteoarthritis, unspecified site
CPT/HCPCS: 36415; 80053; 80061; 83690; 83880; 84484; 85025; 85610; 93005; 93010

== ENCOUNTER 2019-01-04 17:00 | Inpatient (IN) | payer BC, MEDICARE ==
[2019-01-04 19:31] LABS: Basophils % (Auto) 0.4 % (0.0-1.8); Eosinophils % (Auto) 0.1 % (0.0-4.3); Hematocrit 24.5 % (35.5-45.6); Lymphocytes # (Auto) 1.8 K/mm3 (1.2-5.4); Lymphocytes % (Auto) 17.9 % (13.4-35.0); Mean Corpuscular HGB Conc 33 % (32-34); Mean Corpuscular Volume 86 fl (84-94); Monocytes % (Auto) 10.1 % (0.0-7.3); Platelet Count 193 K/mm3 (140-440); Red Blood Count 2.85 M/mm3 (3.65-5.03); Red Cell Distribution Width 18.9 % (13.2-15.2)
[2019-01-04 19:41] LABS: INR 1.78 (0.87-1.13)
[2019-01-04 19:42] LABS: Partial Thromboplastin Time 36.5 Sec. (24.2-36.6)
[2019-01-04 19:44] LABS: Creatine Kinase MB 1.5 ng/mL (0.0-4.0)
--- NOTE | 2019-01-04 19:46 | XRay Report ---
CHEST 1 VIEW 7:08 PM INDICATION / CLINICAL INFORMATION: Altered mental status. Low O2 sats. Back hurts. COMPARISON: 11/15/2018. FINDINGS: SUPPORT DEVICES: There is a left jugular CVL with the tip overlying the cavoatrial junction. HEART / MEDIASTINUM: The heart size is borderline. Pulmonary vasculature is not the upper limits of n ormal. LUNGS / PLEURA: Right basilar pleuroparenchymal opacity with obscuration of the hemidiaphragm is new. Multifocal patchy areas of parenchymal opacity in the periphery of both lungs have cleared. There is minimal left basilar subsegmental atelectasis. No pneumothorax. ADDITIONAL FINDINGS: No significant additional findings. IMPRESSION: Small to moderate right pleural effusion. Signer Name: Yordan Ceja MD Signed: 01/04/2019 7:41 PM Workstation Name: [id number]
[2019-01-04 19:55] LABS: Albumin 2.7 g/dL (3.9-5); Blood Urea Nitrogen 33 mg/dL (9-20); Calcium 9.3 mg/dL (8.4-10.2); Hemolysis Index 3
[2019-01-04 19:58] LABS: BUN/Creatinine Ratio 7
[2019-01-04 20:00] LABS: Alanine Aminotransferase < 5 units/L (7-56)
--- NOTE | 2019-01-04 20:33 | Emergency Department Report ---
ED Altered Mental Status HPI - General Chief Complaint: Altered Mental Status Stated Complaint: SICK Time Seen by Provider: 01/04/19 18:19 Source: family, EMS, old records reviewed Mode of arrival: Stretcher Limitations: Altered Mental Status - History of Present Illness Initial Comments: 73-year-old male has medical history of A. fib/flutter, hypertension, end-stage renal disease on dialysis Friday, , and Friday this to the hospital with alteration in mental status times one day. Patient's is accompanied by his a niece at the bedside. They states that they aren't taking care of the patient at home without any home health. Not had anything to eat and he is not able to follow commands or have a conversation. They express concern about need for rectal tube due to anal/rectal soreness and sores/skin breakdown to the area. Patient is uncomfortable with cleanings between bowel movements. Patient also complaining of ongoing back pain. As per medical record review she was recently admitted here December 01 into the . Patient was admitted for pneumonia with him MSSA sepsis pulmonary and septic emboli. Patient had MRI T and L-spine performed. T-spine MRI dated 12/16/2018: Unremarkable L-spine MRI dated 12/16/2018: Degraded by motion artifact but some apparent L4 nerve root impingement, with other degenerative changes seen at L2-L3, L3-L4, and L4-L5. Prior to admission pt was able to work and are for himself. At discharge custodial placement was recommended by treating MD's due to increase care need but patient and family refused. Since discharge she has had ER visits on December 27 and December 31. Family states states that they do not have any home health care takers but are trying to obtain assistance. pts Kiran [phone] - Related Data Previous Rx's Medication Instructions Recorded Last Taken Type Epoetin Jeramy 10,000 Unit [Procrit] 10,000 unit IV TUTHSA vial 12/19/18 Unknown Rx Gabapentin 100 mg PO Q8HR 30 Days #90 capsule 12/19/18 Unknown Rx Metoprolol [Lopressor TAB] 100 mg PO TID 30 Days #90 tablet 12/19/18 Unknown Rx Polyethylene Glycol 3350 [Miralax 17 gm PO QDAY 30 Days powd.pack 12/19/18 Unknown Rx 3350] Sevelamer Carbonate [Renvela] 2,400 mg PO AC 30 Days tablet 12/19/18 Unknown Rx amLODIPine 7.5 mg PO QDAY 30 Days #45 tablet 12/19/18 Unknown Rx oxyCODONE /ACETAMINOPHEN [Percocet 1 tab PO BID PRN #20 tablet 12/19/18 Unknown Rx 5/325 mg] Allergies Allergy/AdvReac Type Severity Reaction Status Date / Time No Known Allergies Allergy Verified 08/27/18 16:19 ED Review of Systems ROS: Stated complaint: SICK Other details as noted in HPI Comment: All other systems reviewed and negative ED Past Medical Hx - Past Medical History Hx Hypertension: Yes Hx Heart Attack/AMI: No Hx Liver Disease: No Hx Renal Disease: Yes (HD Tues,Thurs,Sat) Hx Arthritis: Yes ("Different days, different joints") Additional medical history: ESRD, Hematuria, Proteinuria, Noncompliant with medical treatment, hypokalemis, hyperparathyroidism, pulmonary sepsis, - Surgical History Additional Surgical History: hemmoroidectomy. Right chest Vas-Cath - Social History Smoking Status: Never Smoker Substance Use Type: None - Medications Home Medications: Home Medications Medication Instructions Recorded Confirmed Last Taken Type Epoetin Jeramy 10,000 Unit [Procrit] 10,000 unit IV TUTHSA vial 12/19/18 Unknown Rx Gabapentin 100 mg PO Q8HR 30 Days #90 capsule 12/19/18 Unknown Rx Metoprolol [Lopressor TAB] 100 mg PO TID 30 Days #90 tablet 12/19/18 Unknown Rx Polyethylene Glycol 3350 [Miralax 17 gm PO QDAY 30 Days powd.pack 12/19/18 Unknown Rx 3350] Sevelamer Carbonate [Renvela] 2,400 mg PO AC 30 Days tablet 12/19/18 Unknown Rx amLODIPine 7.5 mg PO QDAY 30 Days #45 tablet 12/19/18 Unknown Rx oxyCODONE /ACETAMINOPHEN [Percocet 1 tab PO BID PRN #20 tablet 12/19/18 Unknown Rx 5/325 mg] ED Physical Exam - General Limitations: Altered Mental Status - Other Other exam information: General: No acute distress Head: Atraumatic Eyes: normal appearance ENT: Moist mucous membranes Neck: Normal appearance, no midline tenderness Chest: Clear to auscultation bilaterally CV: Regular rate and rhythm Abdomen: Soft, normal bowel sounds, nontender, nondistended, no rebound or guarding Back: Normal inspection Extremity: Normal inspection infection, full range of motion Neuro: lethargic, occasionally will open eyes and make eye contact, mumbles and makes incomprehensible sound, no facial asymmetry, speech clear, no gross motor sensory deficit Skin: anal area with red skin ulceration ED Course Vital Signs 01/04/19 01/04/19 01/04/19 17:45 19:01 19:15 Temperature 98.4 F Pulse Rate 94 H 82 109 H Respiratory 15 13 15 Rate Blood Pressure 113/86 113/86 Blood Pressure 125/83 [Left] O2 Sat by Pulse 99 99 99 Oximetry 01/04/19 01/04/19 01/04/19 19:31 19:45 20:15 Temperature Pulse Rate 109 H 122 H 82 Respiratory 14 17 16 Rate Blood Pressure 159/134 131/85 122/64 Blood Pressure [Left] O2 Sat by Pulse 97 98 Oximetry 01/04/19 01/04/19 01/04/19 20:31 20:45 21:38 Temperature Pulse Rate 117 H 83 Respiratory 15 19 Rate Blood Pressure 117/69 120/66 120/66 Blood Pressure [Left] O2 Sat by Pulse 100 99 94 Oximetry 01/04/19 01/04/19 01/04/19 21:45 22:01 22:15 Temperature Pulse Rate Respiratory Rate Blood Pressure 120/66 148/76 130/77 Blood Pressure [Left] O2 Sat by Pulse 91 100 100 Oximetry 01/04/19 01/04/19 01/04/19 22:30 22:45 23:00 Temperature Pulse Rate Respiratory Rate Blood Pressure 103/67 130/77 116/83 Blood Pressure [Left] O2 Sat by Pulse 100 100 100 Oximetry 01/04/19 23:15 Temperature Pulse Rate Respiratory Rate Blood Pressure 126/86 Blood Pressure [Left] O2 Sat by Pulse 98 Oximetry - Lab Data Result diagrams: 01/04/19 18:57 01/04/19 18:57 Lab Results 01/04/19 01/04/19 01/04/19 Range/Units 17:44 18:57 18:57 WBC 9.9 (4.5-11.0) K/mm3 RBC 2.85 L (3.65-5.03) M/mm3 Hgb 8.0 L (11.8-15.2) gm/dl Hct 24.5 L (35.5-45.6) % MCV 86 (84-94) fl MCH 28 (28-32) pg MCHC 33 (32-34) % RDW 18.9 H (13.2-15.2) % Plt Count 193 (140-440) K/mm3 Lymph % (Auto) 17.9 (13.4-35.0) % [place] % (Auto) 10.1 H (0.0-7.3) % Eos % (Auto) 0.1 (0.0-4.3) % Baso % (Auto) 0.4 (0.0-1.8) % Lymph # 1.8 (1.2-5.4) K/mm3 [place] # 1.0 H (0.0-0.8) K/mm3 Eos # 0.0 (0.0-0.4) K/mm3 Baso # 0.0 (0.0-0.1) K/mm3 Seg Neutrophils % 71.5 H (40.0-70.0) % Seg Neutrophils # 7.0 (1.8-7.7) K/mm3 PT 20.4 H (12.2-14.9) Sec. INR 1.78 H (0.87-1.13) APTT 36.5 (24.2-36.6) Sec. VBG pH (7.320-7.420) Sodium (137-145) mmol/L Potassium (3.6-5.0) mmol/L Chloride (98-107) mmol/L Carbon Dioxide (22-30) mmol/L Anion Gap mmol/L BUN (9-20) mg/dL Creatinine (0.8-1.5) mg/dL Estimated GFR ml/min BUN/Creatinine Ratio % Glucose (75-100) mg/dL POC Glucose 124 H (70-105) Calcium (8.4-10.2) mg/dL Total Bilirubin (0.1-1.2) mg/dL AST (5-40) units/L ALT (7-56) units/L Alkaline Phosphatase (35-129) units/L Ammonia (25-60) umol/L Total Creatine Kinase (55-170) units/L CK-MB (CK-2) (0.0-4.0) ng/mL CK-MB (CK-2) Rel Index (0-4) Troponin T (0.00-0.029) ng/mL Total Protein (6.3-8.2) g/dL Albumin (3.9-5) g/dL Albumin/Globulin Ratio % Salicylates (2.8-20.0) mg/dL Acetaminophen (10.0-30.0) ug/mL Plasma/Serum Alcohol (0-0.07) % 01/04/19 01/04/19 01/04/19 Range/Units 18:57 18:57 18:57 WBC (4.5-11.0) K/mm3 RBC (3.65-5.03) M/mm3 Hgb (11.8-15.2) gm/dl Hct (35.5-45.6) % MCV (84-94) fl MCH (28-32) pg MCHC (32-34) % RDW (13.2-15.2) % Plt Count (140-440) K/mm3 Lymph % (Auto) (13.4-35.0) % [place] % (Auto) (0.0-7.3) % Eos % (Auto) (0.0-4.3) % Baso % (Auto) (0.0-1.8) % Lymph # (1.2-5.4) K/mm3 [place] # (0.0-0.8) K/mm3 Eos # (0.0-0.4) K/mm3 Baso # (0.0-0.1) K/mm3 Seg Neutrophils % (40.0-70.0) % Seg Neutrophils # (1.8-7.7) K/mm3 PT (12.2-14.9) Sec. INR (0.87-1.13) APTT (24.2-36.6) Sec. VBG pH (7.320-7.420) Sodium 137 (137-145) mmol/L Potassium 4.3 D (3.6-5.0) mmol/L Chloride 94.2 L (98-107) mmol/L Carbon Dioxide 25 (22-30) mmol/L Anion Gap 22 mmol/L BUN 33 H (9-20) mg/dL Creatinine 5.6 H D (0.8-1.5) mg/dL Estimated GFR 14 ml/min BUN/Creatinine Ratio 7 % Glucose 111 H (75-100) mg/dL POC Glucose (70-105) Calcium 9.3 (8.4-10.2) mg/dL Total Bilirubin 0.50 (0.1-1.2) mg/dL AST 30 (5-40) units/L ALT < 5 L (7-56) units/L Alkaline Phosphatase 100 (35-129) units/L Ammonia (25-60) umol/L Total Creatine Kinase (55-170) units/L CK-MB (CK-2) (0.0-4.0) ng/mL CK-MB (CK-2) Rel Index (0-4) Troponin T 0.265 H* (0.00-0.029) ng/mL Total Protein 8.3 H (6.3-8.2) g/dL Albumin 2.7 L (3.9-5) g/dL Albumin/Globulin Ratio 0.5 % Salicylates < 0.3 L (2.8-20.0) mg/dL Acetaminophen (10.0-30.0) ug/mL Plasma/Serum Alcohol < 0.01 (0-0.07) % 01/04/19 01/04/19 01/04/19 Range/Units 18:57 18:57 18:57 WBC (4.5-11.0) K/mm3 RBC (3.65-5.03) M/mm3 Hgb (11.8-15.2) gm/dl Hct (35.5-45.6) % MCV (84-94) fl MCH (28-32) pg MCHC (32-34) % RDW (13.2-15.2) % Plt Count (140-440) K/mm3 Lymph % (Auto) (13.4-35.0) % [place] % (Auto) (0.0-7.3) % Eos % (Auto) (0.0-4.3) % Baso % (Auto) (0.0-1.8) % Lymph # (1.2-5.4) K/mm3 [place] # (0.0-0.8) K/mm3 Eos # (0.0-0.4) K/mm3 Baso # (0.0-0.1) K/mm3 Seg Neutrophils % (40.0-70.0) % Seg Neutrophils # (1.8-7.7) K/mm3 PT (12.2-14.9) Sec. INR (0.87-1.13) APTT (24.2-36.6) Sec. VBG pH 7.387 (7.320-7.420) Sodium (137-145) mmol/L Potassium (3.6-5.0) mmol/L Chloride (98-107) mmol/L Carbon Dioxide (22-30) mmol/L Anion Gap mmol/L BUN (9-20) mg/dL Creatinine (0.8-1.5) mg/dL Estimated GFR ml/min BUN/Creatinine Ratio % Glucose (75-100) mg/dL POC Glucose (70-105) Calcium (8.4-10.2) mg/dL Total Bilirubin (0.1-1.2) mg/dL AST (5-40) units/L ALT (7-56) units/L Alkaline Phosphatase (35-129) units/L Ammonia (25-60) umol/L Total Creatine Kinase 103 (55-170) units/L CK-MB (CK-2) 1.5 (0.0-4.0) ng/mL CK-MB (CK-2) Rel Index 1.4 (0-4) Troponin T (0.00-0.029) ng/mL Total Protein (6.3-8.2) g/dL Albumin (3.9-5) g/dL Albumin/Globulin Ratio % Salicylates (2.8-20.0) mg/dL Acetaminophen < 5.0 L (10.0-30.0) ug/mL Plasma/Serum Alcohol (0-0.07) % 01/04/19 01/04/19 Range/Units 18:57 22:47 WBC (4.5-11.0) K/mm3 RBC (3.65-5.03) M/mm3 Hgb (11.8-15.2) gm/dl Hct (35.5-45.6) % MCV (84-94) fl MCH (28-32) pg MCHC (32-34) % RDW (13.2-15.2) % Plt Count (140-440) K/mm3 Lymph % (Auto) (13.4-35.0) % [place] % (Auto) (0.0-7.3) % Eos % (Auto) (0.0-4.3) % Baso % (Auto) (0.0-1.8) % Lymph # (1.2-5.4) K/mm3 [place] # (0.0-0.8) K/mm3 Eos # (0.0-0.4) K/mm3 Baso # (0.0-0.1) K/mm3 Seg Neutrophils % (40.0-70.0) % Seg Neutrophils # (1.8-7.7) K/mm3 PT (12.2-14.9) Sec. INR (0.87-1.13) APTT (24.2-36.6) Sec. VBG pH (7.320-7.420) Sodium (137-145) mmol/L Potassium (3.6-5.0) mmol/L Chloride (98-107) mmol/L Carbon Dioxide (22-30) mmol/L Anion Gap mmol/L BUN (9-20) mg/dL Creatinine (0.8-1.5) mg/dL Estimated GFR ml/min BUN/Creatinine Ratio % Glucose (75-100) mg/dL POC Glucose (70-105) Calcium (8.4-10.2) mg/dL Total Bilirubin (0.1-1.2) mg/dL AST (5-40) units/L ALT (7-56) units/L Alkaline Phosphatase (35-129) units/L Ammonia 33.0 (25-60) umol/L Total Creatine Kinase (55-170) units/L CK-MB (CK-2) (0.0-4.0) ng/mL CK-MB (CK-2) Rel Index (0-4) Troponin T 0.284 H* (0.00-0.029) ng/mL Total Protein (6.3-8.2) g/dL Albumin (3.9-5) g/dL Albumin/Globulin Ratio % Salicylates (2.8-20.0) mg/dL Acetaminophen (10.0-30.0) ug/mL Plasma/Serum Alcohol (0-0.07) % - EKG Data -: EKG Interpreted by Me (afutter rate 89) EKG shows normal: ST-T waves (repol) Rate: normal When compared to previous EKG there are: no significant change - Radiology Data Radiology results: report reviewed CHEST 1 VIEW 7:08 PM INDICATION / CLINICAL INFORMATION: Altered mental status. Low O2 sats. Back hurts. COMPARISON: 11/15/2018. FINDINGS: SUPPORT DEVICES: There is a left jugular CVL with the tip overlying the cavoatrial junction. HEART / MEDIASTINUM: The heart size is borderline. Pulmonary vasculature is not the upper limits of normal. LUNGS / PLEURA: Right basilar pleuroparenchymal opacity with obscuration of the hemidiaphragm is new. Multifocal patchy areas of parenchymal opacity in the periphery of both lungs have cleared. There is minimal left basilar subsegmental atelectasis. No pneumothorax. ADDITIONAL FINDINGS: No significant additional findings. IMPRESSION: Small to moderate right pleural effusion. CT HEAD WITHOUT CONTRAST INDICATION / CLINICAL INFORMATION: Altered Mental Status. TECHNIQUE: All CT scans at this location are performed using CT dose reduction for ALARA by means of automated exposure control. COMPARISON: CT dated 11/17/15 FINDINGS: Patient motion artifact degrades some of the images. HEMORRHAGE: None. EXTRA-AXIAL SPACES: Normal in size and morphology for the patient's age. VENTRICULAR SYSTEM: Normal in size and morphology for the patient's age. CEREBRAL PARENCHYMA: Mild microangiopathic changes appear stable. No acute territorial infarct. MIDLINE SHIFT OR HERNIATION: None. CEREBELLUM / BRAINSTEM: No significant abnormality. ORBITS: Normal as visualized. SOFT TISSUES of HEAD: No significant abnormality. CALVARIUM: No significant abnormality. PARANASAL SINUSES / MASTOID AIR CELLS: Normal as visualized. ADDITIONAL FINDINGS: None. IMPRESSION: 1. No acute intracranial abnormality. Significant change. CT CHEST WITHOUT CONTRAST INDICATION / CLINICAL INFORMATION: sob, ams. TECHNIQUE: Axial CT images were obtained through the chest without contrast. All CT scans at this location are performed using CT dose reduction for ALARA by means of automated exposure control. COMPARISON: CT dated 11/26/18 FINDINGS: HEART: Mildly enlarged but stable. THORACIC AORTA: No significant abnormality. MEDIASTINUM and FOX: Left PermCath is unchanged. No significant adenopathy. LUNGS: Slight interval improvement in the multiple bilateral cavitary nodules which likely represented septic emboli. New airspace disease in the right upper lobe apex and in the lingula and right middle lobe. Passive atelectasis of the lower lobes. PLEURA: Interval increase in size of bilateral pleural effusions, right larger than left. No pneumothorax. ADDITIONAL FINDINGS: Thyroid nodularity is unchanged. UPPER ABDOMEN: Interval development of small to moderate free f luid in the upper abdomen. SKELETAL SYSTEM: No significant abnormality. IMPRESSION: 1. Slight interval improvement in bilateral pulmonary septic emboli. New airspace disease scattered throughout both lungs. 2. Interval increase in bilateral pleural effusions and free fluid in the upper abdomen. - Medical Decision Making Patient presents to the hospital alteration in mental status of unknown cause.Lab abnormalities. CT head unremarkable. CT chest shows effusions with persistent septic emboli. Patient does not have fever leukocytosis at this time. Case discussed with hospitalist for admission. - Differential Diagnosis CVA, ICH, encephalopathy Critical Care Time: No Critical care attestation.: If time is entered above; I have spent that time in minutes in the direct care of this critically ill patient, excluding procedure time. ED Disposition Clinical Impression: Altered mental status, Pleural effusion, ESRD (end stage renal disease) on dialysis Disposition: OP ADMIT IP TO THIS HOSP Is pt being admited?: Yes Condition: Stable Time of Disposition: 00:47 (Dr Pretty/hosp)
--- NOTE | 2019-01-04 23:24 | Cat Scan Report ---
CT HEAD WITHOUT CONTRAST INDICATION / CLINICAL INFORMATION: Altered Mental Status. TECHNIQUE: All CT scans at this location are performed using CT dose reduction for ALARA by means of automated e xposure control. COMPARISON: CT dated 11/17/15 FINDINGS: Patient motion artifact degrades some of the images. HEMORRHAGE: None. EXTRA-AXIAL SPACES: Normal in size and morphology for the patient's age. VENTRICULAR SYSTEM: Normal in size and morphology for the patient's age. CEREBRAL PARENCHYMA: Mild microangiopathic changes appear stable. No acute territorial infarct. MIDLINE SHIFT OR HERNIATION: None. CEREBELLUM / BRAINSTEM: No significant abnormality. ORBITS: Normal as visualized. SOFT TISSUES of HEAD: No significant abnormality. CALVARIUM: No significant abnormality. PARANASAL SINUSES / MASTOID AIR CELLS: Normal as visualized. ADDITIONAL FINDINGS: None. IMPRESSION: 1. No acute intracranial abnormality. Significant change. Signer Name: Ricky Mcrae MD Signed: 01/04/2019 11:20 PM Workstation Name: [id number]
--- NOTE | 2019-01-04 23:38 | Cat Scan Report ---
CT CHEST WITHOUT CONTRAST INDICATION / CLINICAL INFORMATION: sob, ams. TECHNIQUE: Axial CT images were obtained through the chest without contrast. All CT scans at this location are p erformed using CT dose reduction for ALARA by means of automated exposure control. COMPARISON: CT dated 11/26/18 FINDINGS: HEART: Mildly enlarged but stable. THORACIC AORTA: No significant abnormality. MEDIASTINUM and FOX: Left PermCath is unchanged. No significant adenopathy. LUNGS: Slight interval improvement in the multiple bilateral cavitary nodules which likely represente d septic emboli. New airspace disease in the right upper lobe apex and in the lingula and right middl e lobe. Passive atelectasis of the lower lobes. PLEURA: Interval increase in size of bilateral pleural effusions, right larger than left. No pneumoth orax. ADDITIONAL FINDINGS: Thyroid nodularity is unchanged. UPPER ABDOMEN: Interval development of small to moderate free fluid in the upper abdomen. SKELETAL SYSTEM: No significant abnormality. IMPRESSION: 1. Slight interval improvement in bilateral pulmonary septic emboli. New airspace disease scattered t hroughout both lungs. 2. Interval increase in bilateral pleural effusions and free fluid in the upper abdomen. Signer Name: Ricky Mcrae MD Signed: 01/04/2019 11:34 PM Workstation Name: [id number]
[2019-01-05] MEDS ORDERED: ACETAMINOPHEN 325 MG TAB PO PRN (00:52)
[2019-01-05] MEDS ORDERED: ONDANSETRON 4 MG/2 ML INJ IV PRN (00:52)
[2019-01-05] MEDS ORDERED: oxyCODONE /ACETAMINOPHEN 5-325MG TAB PO PRN (01:07)
--- NOTE | 2019-01-05 01:25 | History and Physical Report ---
<REUBEN CANALES - Last Filed: 01/05/19 01:20> History of Present Illness Date of examination: 01/05/19 Date of admission: 01/05/2019 Chief complaint: AMS History of present illness: 73-year-old -Austrian male with history of hypertension, A. fib/A flutter, ESRD on HD, chronic anemia, hyperparathyroidism, osteoarthritis, infected permacath, and MSSA bilateral pulmonary septic emboli who presents [facility] ED with c/o of AMS. Pt is a poor historian. History is provided by and review of medical records. According to patient's patient is not at his usual baseline. His mentation has become profoundly altered. Furthermore patient hasn't had anything to eat or drink for a day. At the time of my examination patient is resting comfortably in stretcher, and easily aroused. He is oriented to self only. I spoke with via telephone, who stated that she provides for patient at home. Since being discharged from inpatient rehabilitation it has become more difficult to provide care. At this time patient is seeking in-home assistance to help care for patient. Review of medical record shows patient had a prolonged stay he was admitted on 11/11/18, his admission was complicated by an infected right chest permacath and the development of an MSSA bilateral pleural septic emboli. He was discharged to inpatient rehabilitation on 12/01/18 and remained there until 12/09/18. Since being discharged from rehabilitation patient has presented to the ED on 2 occasions: 1. 12/27 complaints of abdominal pain, CT abdomen and pelvis showed no acute changes and he was discharged to home. 2. 12/31/18 with complaints of nontraumatic right hip pain and back pain for complaints were from chronic conditions and patient was discharged home. Past History Past Medical History: atrial fib (atrial flutter), anemia (chronic anemia), ESRD (on HD T//), hypertension, other (hyper parathyroidism, osteoarthritis, infected right chest permacath (11/2018), mssa bilateral pulmonary septic emboli) Past Surgical History: Other (right chest permacath (removed 11/2018, left chest permacath, hemmoroidectomy) Social history: , lives with family Family history: no significant family history Medications and Allergies Allergies Allergy/AdvReac Type Severity Reaction Status Date / Time No Known Allergies Allergy Verified 08/27/18 16:19 Home Medications Medication Instructions Recorded Confirmed Last Taken Type Epoetin Jeramy 10,000 Unit [Procrit] 10,000 unit IV TUTHSA vial 12/19/18 01/05/19 Unknown Rx Gabapentin 100 mg PO Q8HR 30 Days #90 capsule 12/19/18 01/05/19 Unknown Rx Metoprolol [Lopressor TAB] 100 mg PO TID 30 Days #90 tablet 12/19/18 01/05/19 Unknown Rx Polyethylene Glycol 3350 [Miralax 17 gm PO QDAY 30 Days powd.pack 12/19/18 01/05/19 Unknown Rx 3350] Sevelamer Carbonate [Renvela] 2,400 mg PO AC 30 Days tablet 12/19/18 01/05/19 Unknown Rx amLODIPine 7.5 mg PO QDAY 30 Days #45 tablet 12/19/18 01/05/19 Unknown Rx oxyCODONE /ACETAMINOPHEN [Percocet 1 tab PO BID PRN #20 tablet 12/19/18 01/05/19 Unknown Rx 5/325 mg] AtorvaSTATin [Lipitor] 20 mg PO QHS 01/05/19 01/05/19 Unknown History cloNIDine [Catapres] 0.2 mg PO BID 01/05/19 01/05/19 Unknown History Active Meds: Active Medications Acetaminophen (Tylenol) 650 mg PO Q4H PRN PRN Reason: Pain MILD(1-3)/Fever >100.5/NEIL Amlodipine Besylate (Amlodipine) 7.5 mg PO QDAY ISABELLA Epoetin Jeramy (Procrit) 10,000 unit IV TUTHSA [facility] Gabapentin (Gabapentin) 100 mg PO Q8HR [facility] Heparin Sodium (Porcine) (Heparin) 5,000 unit SUB-Q Q12HR ISABELLA Piperacillin Sod/Tazobactam Sod (Zosyn/Ns 2.25 Gm/50ml) 2.25 gm in 50 mls @ 100 mls/hr IV Q8H [facility] Metoprolol Tartrate (Metoprolol) 100 mg PO TID ISABELLA Ondansetron HCl (Zofran) 4 mg IV Q8H PRN PRN Reason: Nausea And Vomiting Oxycodone/Acetaminophen (Percocet 5/325) 1 tab PO Q6H PRN PRN Reason: Pain, Moderate (4-6) Polyethylene Glycol (Miralax 3350) 17 gm PO QDAY ISABELLA Sevelamer Carbonate (Renvela) 2,400 mg PO AC ISABELLA Sodium Chloride (Sodium Chloride Flush Syringe 10 Ml) 10 ml IV BID ISABELLA Sodium Chloride (Sodium Chloride Flush Syringe 10 Ml) 10 ml IV PRN PRN PRN Reason: LINE FLUSH Review of Systems ROS unobtainable: due to mental status Exam - Physical Exam Narrative exam: General appearance: Present: No acute distress, resting but easily aroused, disoriented to place; time;and situation, oriented to self, well-developed A frican [place] older adult male - EENT Eyes: Present: PERRL, EOM intact ENT: hearing intact, missing teeth - Neck Neck: Present: supple, normal ROM - Respiratory Respiratory effort: Non-labored Respiratory: bilateral: CTA with diminished bases bilaterally - Cardiovascular Heart rate:89 (bpm) Rhythm: Atrial flutter Heart Sounds: Present: S1, S2. - Extremities Extremities: no ischemia, pulses intact - Peripheral Assessment Peripheral Pulses: within normal limits - Abdominal General gastrointestinal: soft, non-tender, normal bowel sounds, - Integumentary Integumentary: Present: warm, dry, excoriation to left and right lower buttock - Musculoskeletal Musculoskeletal: generalized weakness -Neurological Neurological: CN II-XII grossly intact - Psychiatric Psychiatric: cooperative 1 - Constitutional Vitals: Temp Pulse Resp BP Pulse Ox 98.4 F 83 19 126/86 98 01/04/19 17:45 01/04/19 20:45 01/04/19 20:45 01/04/19 23:15 01/04/19 23:15 Results - Labs CBC & Chem 7: 01/04/19 18:57 01/04/19 18:57 Labs: Laboratory Last Values WBC 9.9 K/mm3 (4.5-11.0) 01/04/19 18:57 RBC 2.85 M/mm3 (3.65-5.03) L 01/04/19 18:57 Hgb 8.0 gm/dl (11.8-15.2) L 01/04/19 18:57 Hct 24.5 % (35.5-45.6) L 01/04/19 18:57 MCV 86 fl (84-94) 01/04/19 18:57 MCH 28 pg (28-32) 01/04/19 18:57 MCHC 33 % (32-34) 01/04/19 18:57 RDW 18.9 % (13.2-15.2) H 01/04/19 18:57 Plt Count 193 K/mm3 (140-440) 01/04/19 18:57 Lymph % (Auto) 17.9 % (13.4-35.0) 01/04/19 18:57 [place] % (Auto) 10.1 % (0.0-7.3) H 01/04/19 18:57 Eos % (Auto) 0.1 % (0.0-4.3) 01/04/19 18:57 Baso % (Auto) 0.4 % (0.0-1.8) 01/04/19 18:57 Lymph # 1.8 K/mm3 (1.2-5.4) 01/04/19 18:57 [place] # 1.0 K/mm3 (0.0-0.8) H 01/04/19 18:57 Eos # 0.0 K/mm3 (0.0-0.4) 01/04/19 18:57 Baso # 0.0 K/mm3 (0.0-0.1) 01/04/19 18:57 Seg Neutrophils % 71.5 % (40.0-70.0) H 01/04/19 18:57 Seg Neutrophils # 7.0 K/mm3 (1.8-7.7) 01/04/19 18:57 PT 20.4 Sec. (12.2-14.9) H 01/04/19 18:57 INR 1.78 (0.87-1.13) H 01/04/19 18:57 APTT 36.5 Sec. (24.2-36.6) 01/04/19 18:57 VBG pH 7.387 (7.320-7.420) 01/04/19 18:57 Sodium 137 mmol/L (137-145) 01/04/19 18:57 Potassium 4.3 mmol/L (3.6-5.0) D 01/04/19 18:57 Chloride 94.2 mmol/L (98-107) L 01/04/19 18:57 Carbon Dioxide 25 mmol/L (22-30) 01/04/19 18:57 Anion Gap 22 mmol/L 01/04/19 18:57 BUN 33 mg/dL (9-20) H 01/04/19 18:57 Creatinine 5.6 mg/dL (0.8-1.5) H D 01/04/19 18:57 Estimated GFR 14 ml/min 01/04/19 18:57 BUN/Creatinine Ratio 7 % 01/04/19 18:57 Glucose 111 mg/dL (75-100) H 01/04/19 18:57 POC Glucose 124 (70-105) H 01/04/19 17:44 Calcium 9.3 mg/dL (8.4-10.2) 01/04/19 18:57 Total Bilirubin 0.50 mg/dL (0.1-1.2) 01/04/19 18:57 AST 30 units/L (5-40) 01/04/19 18:57 ALT < 5 units/L (7-56) L 01/04/19 18:57 Alkaline Phosphatase 100 units/L (35-129) 01/04/19 18:57 Ammonia 33.0 umol/L (25-60) 01/04/19 18:57 Total Creatine Kinase 103 units/L (55-170) 01/04/19 18:57 CK-MB (CK-2) 1.5 ng/mL (0.0-4.0) 01/04/19 18:57 CK-MB (CK-2) Rel Index 1.4 (0-4) 01/04/19 18:57 Troponin T 0.284 ng/mL (0.00-0.029) H* 01/04/19 22:47 Total Protein 8.3 g/dL (6.3-8.2) H 01/04/19 18:57 Albumin 2.7 g/dL (3.9-5) L 01/04/19 18:57 Albumin/Globulin Ratio 0.5 % 01/04/19 18:57 Salicylates < 0.3 mg/dL (2.8-20.0) L 01/04/19 18:57 Acetaminophen < 5.0 ug/mL (10.0-30.0) L 01/04/19 18:57 Plasma/Serum Alcohol < 0.01 % (0-0.07) 01/04/19 18:57 - Imaging and Cardiology Imaging and Cardiology: CT Head: FINDINGS: Patient motion artifact degrades some of the images. HEMORRHAGE: None. EXTRA-AXIAL SPACES: Normal in size and morphology for the patient's age. VENTRICULAR SYSTEM: Normal in size and morphology for the patient's age. CEREBRAL PARENCHYMA: Mild microangiopathic changes appear stable. No acute territorial infarct. MIDLINE SHIFT OR HERNIATION: None. CEREBELLUM / BRAINSTEM: No significant abnormality. ORBITS: Normal as visualized. SOFT TISSUES of HEAD: No significant abnormality. CALVARIUM: No significant abnormality. PARANASAL SINUSES / MASTOID AIR CELLS: Normal as visualized. ADDITIONAL FINDINGS: None. IMPRESSION: 1. No acute intracranial abnormality. Significant change. CT Chest: HEART: Mildly enlarged but stable. THORACIC AORTA: No significant abnormality. MEDIASTINUM and FOX: Left PermCath is unchanged. No significant adenopathy. LUNGS: Slight interval improvement in the multiple bilateral cavitary nodules which likely represented septic emboli. New airspace disease in the right upper lobe apex and in the lingula and right middle lobe. Passive atelectasis of the lower lobes. PLEURA: Interval increase in size of bilateral pleural effusions, right larger than left. No pneumothorax. ADDITIONAL FINDINGS: Thyroid nodularity is unchanged. UPPER ABDOMEN: Interval development of small to moderate free fluid in the upper abdomen. SKELETAL SYSTEM: No significant abnormality. IMPRESSION: 1. Slight interval improvement in bilateral pulmonary septic emboli. New airspace disease scattered throughout both lungs. 2. Interval increase in bilateral pleural effusions and free fluid in the upper abdomen. CXR: FINDINGS: SUPPORT DEVICES: There is a left jugular CVL with the tip overlying the cavoatrial junction. HEART / MEDIASTINUM: The heart size is borderline. Pulmonary vasculature is not the upper limits of normal. LUNGS / PLEURA: Right basilar pleuroparenchymal opacity with obscuration of the hemidiaphragm is new. Multifocal patchy areas of parenchymal opacity in the periphery of both lungs have cleared. There is minimal left basilar subsegmental atelectasis. No pneumothorax. ADDITIONAL FINDINGS: No significant additional findings. IMPRESSION: Small to moderate right pleural effusion. Assessment and Plan Assessment and plan: 73-year-old -Austrian male with history of hypertension, A. fib/A flutter, ESRD on HD, chronic anemia, hyperparathyroidism, osteoarthritis, infected permacath, and MSSA bilateral pulmonary septic emboli who presents [facility] ED with c/o of AMS. Pt is a poor historian. History is provided by and review of medical records. According to patient's patient is not at his usual baseline. His mentation has become profoundly altered. The more patient has not had anything to eat or drink for today. She denies any recent injury or trauma. Acute encephalopathy ?? Likely metabolic -CT head negative -Afebrile, no leukocytosis -Blood cultures pending -Start empirically on IV Zosyn -Neuro checks Failure to thrive -Rapid decline since being admitted in Nov 2018 -Unable to perform ADLs -Family originally declined placement -Family has requested home health -Case management consult pending ESRD on HD - -Last dialyzed 01/02/19 -Avoid nephrotoxin agents -Renal dose all meds -Nephrology consulted Anemia of chronic disease -Hemoglobin on admission 8.0 -C transfusion during previous admission in November -Continue to monitor hemoglobin -Transfuse as needed -Hematology consulted Excoriation to sacrum -?? Patient on HD, per makes urine once to twice per week -Off load pressure areas to prevent further skin breakdown -Apply barrier cream prn -Continue supportive care -Wound care consult pending Hx MSSA lateral pulmonary septic emboli -Today's CT Chest shows: 1. Slight interval improvement in bilateral pulmonary septic emboli. New airspace disease scattered throughout both lungs. 2. Interval increase in bilateral pleural effusions and free fluid in the upper abdomen. -Started on empiric IV ABX -ID Consulted Debility -Ambulates with a wheelchair at baseline -PT/OT consult pending Hx A-fib/Aflutter -Continue BB -Continuous telemetry monitoring HTN -Monitor BP -Resume home antihypertensive meds DVT PPX -on Heparin Advance Directives: No VTE prophylaxis?: Chemical Plan of care discussed with patient/family: Yes <MYRNA SALGADO - Last Filed: 01/06/19 00:32> History of Present Illness Date of admission: 01/05/19 00:52 Medications and Allergies Active Meds: Active Medications Acetaminophen (Tylenol) 650 mg PO Q4H PRN PRN Reason: Pain MILD(1-3)/Fever >100.5/NEIL Amlodipine Besylate (Amlodipine) 7.5 mg PO QDAY ISABELLA Epoetin Jeramy (Procrit) 10,000 unit IV TUTHSA [facility] Gabapentin (Gabapentin) 100 mg PO Q8HR [facility] Heparin Sodium (Porcine) (Heparin) 5,000 unit SUB-Q Q12HR [facility] Piperacillin Sod/Tazobactam Sod (Zosyn/Ns 2.25 Gm/50ml) 2.25 gm in 50 mls @ 100 mls/hr IV Q8H [facility] Last Admin: 01/05/19 02:11 Dose: 100 mls/hr Documented by: Metoprolol Tartrate (Metoprolol) 100 mg PO TID ISABELLA Ondansetron HCl (Zofran) 4 mg IV Q8H PRN PRN Reason: Nausea And Vomiting Polyethylene Glycol (Miralax 3350) 17 gm PO QDAY [facility] Sevelamer Carbonate (Renvela) 2,400 mg PO AC [facility] Sodium Chloride (Sodium Chloride Flush Syringe 10 Ml) 10 ml IV BID [facility] Sodium Chloride (Sodium Chloride Flush Syringe 10 Ml) 10 ml IV PRN PRN PRN Reason: LINE FLUSH Exam - Constitutional Vitals: Temp Pulse Resp BP Pulse Ox 98.4 F 107 H 33 H 129/83 99 01/04/19 17:45 01/05/19 03:15 01/05/19 03:15 01/05/19 03:15 01/05/19 03:15 Results - Labs CBC & Chem 7: 01/05/19 04:14 01/04/19 18:57 Labs: Laboratory Last Values WBC 9.9 K/mm3 (4.5-11.0) 01/04/19 18:57 RBC 2.85 M/mm3 (3.65-5.03) L 01/04/19 18:57 Hgb 8.0 gm/dl (11.8-15.2) L 01/04/19 18:57 Hct 24.5 % (35.5-45.6) L 01/04/19 18:57 MCV 86 fl (84-94) 01/04/19 18:57 MCH 28 pg (28-32) 01/04/19 18:57 MCHC 33 % (32-34) 01/04/19 18:57 RDW 18.9 % (13.2-15.2) H 01/04/19 18:57 Plt Count 193 K/mm3 (140-440) 01/04/19 18:57 Lymph % (Auto) 17.9 % (13.4-35.0) 01/04/19 18:57 [place] % (Auto) 10.1 % (0.0-7.3) H 01/04/19 18:57 Eos % (Auto) 0.1 % (0.0-4.3) 01/04/19 18:57 Baso % (Auto) 0.4 % (0.0-1.8) 01/04/19 18:57 Lymph # 1.8 K/mm3 (1.2-5.4) 01/04/19 18:57 [place] # 1.0 K/mm3 (0.0-0.8) H 01/04/19 18:57 Eos # 0.0 K/mm3 (0.0-0.4) 01/04/19 18:57 Baso # 0.0 K/mm3 (0.0-0.1) 01/04/19 18:57 Seg Neutrophils % 71.5 % (40.0-70.0) H 01/04/19 18:57 Seg Neutrophils # 7.0 K/mm3 (1.8-7.7) 01/04/19 18:57 PT 20.4 Sec. (12.2-14.9) H 01/04/19 18:57 INR 1.78 (0.87-1.13) H 01/04/19 18:57 APTT 36.5 Sec. (24.2-36.6) 01/04/19 18:57 VBG pH 7.387 (7.320-7.420) 01/04/19 18:57 Sodium 137 mmol/L (137-145) 01/04/19 18:57 Potassium 4.3 mmol/L (3.6-5.0) D 01/04/19 18:57 Chloride 94.2 mmol/L (98-107) L 01/04/19 18:57 Carbon Dioxide 25 mmol/L (22-30) 01/04/19 18:57 Anion Gap 22 mmol/L 01/04/19 18:57 BUN 33 mg/dL (9-20) H 01/04/19 18:57 Creatinine 5.6 mg/dL (0.8-1.5) H D 01/04/19 18:57 Estimated GFR 14 ml/min 01/04/19 18:57 BUN/Creatinine Ratio 7 % 01/04/19 18:57 Glucose 111 mg/dL (75-100) H 01/04/19 18:57 POC Glucose 124 (70-105) H 01/04/19 17:44 Calcium 9.3 mg/dL (8.4-10.2) 01/04/19 18:57 Total Bilirubin 0.50 mg/dL (0.1-1.2) 01/04/19 18:57 AST 30 units/L (5-40) 01/04/19 18:57 ALT < 5 units/L (7-56) L 01/04/19 18:57 Alkaline Phosphatase 100 units/L (35-129) 01/04/19 18:57 Ammonia 33.0 umol/L (25-60) 01/04/19 18:57 Total Creatine Kinase 103 units/L (55-170) 01/04/19 18:57 CK-MB (CK-2) 1.5 ng/mL (0.0-4.0) 01/04/19 18:57 CK-MB (CK-2) Rel Index 1.4 (0-4) 01/04/19 18:57 Troponin T 0.284 ng/mL (0.00-0.029) H* 01/04/19 22:47 Total Protein 8.3 g/dL (6.3-8.2) H 01/04/19 18:57 Albumin 2.7 g/dL (3.9-5) L 01/04/19 18:57 Albumin/Globulin Ratio 0.5 % 01/04/19 18:57 Salicylates < 0.3 mg/dL (2.8-20.0) L 01/04/19 18:57 Acetaminophen < 5.0 ug/mL (10.0-30.0) L 01/04/19 18:57 Plasma/Serum Alcohol < 0.01 % (0-0.07) 01/04/19 18:57 Assessment and Plan Assessment and plan: Vision seen and examined, discussed with nurse practitioner, see plan as stated above
[2019-01-05] MEDS: PIPERACIL-TAZO 2.25 GM/50 ML 2.25 GM/50 ML BAG IV SCH ×3 (02:11→18:30)
--- NOTE | 2019-01-05 04:29 | Event Note ---
Date: 01/05/19 Nurse called to notify me that patient has dark red blood per rectum. Went to bedside to assess patient and perform rectal exam, : Stool was also collected. Patient had moderate amount of gross blood per rectum. Make patient nothing by mouth. Ordered stat type and cross, repeat H/H, PT and INR, discontinued subcutaneous heparin, antihypertensive meds and GI was consulted. Spoke with Dr. Hicks regarding pt's current condition; recommendations appreciated. Will start on Protonix gtt. Follow up on Labs and transfuse prn.
[2019-01-05 04:46] LABS: Hematocrit 23.7 % (35.5-45.6); Hemoglobin 7.7 gm/dl (11.8-15.2)
[2019-01-05 04:58] LABS: INR 1.61 (0.87-1.13)
[2019-01-05 04:59] LABS: Partial Thromboplastin Time 36.4 Sec. (24.2-36.6)
[2019-01-05] MEDS: PANTOPRAZOLE 80 MG in SODIUM CHLORIDE 0.9% 100 ML IV SCH (05:13)
[2019-01-05] MEDS: GABAPENTIN 100 MG CAP PO SCH ×2 (05:19→15:15)
[2019-01-05] MEDS ORDERED: SODIUM CHLORIDE 0.9% 500 ML 500 ML IV ONE (05:47)
[2019-01-05] MEDS ORDERED: PIPERACILLIN/TAZOBACTAM 3.375 3.375 GM/50 ML BAG IV SCH (06:00)
[2019-01-05] MEDS: SEVELAMER CARBONATE 800 MG TAB PO SCH ×2 (07:56→18:11)
[2019-01-05] MEDS ORDERED: METOPROLOL TARTRATE 100 MG TAB PO SCH (08:00)
--- NOTE | 2019-01-05 09:10 | Progress Note ---
Assessment and Plan Assessment and plan: 73-year-old -[place]ian male with history of hypertension, A. fib/A flutter, ESRD on HD, chronic anemia, hyperparathyroidism, osteoarthritis, infected permacath, and MSSA bilateral pulmonary septic emboli who presents [facility] ED with c/o of AMS. Pt is a poor historian. History is provided by and review of medical records. According to patient's patient is not at his usual baseline. His mentation has become profoundly altered. The more patient has not had anything to eat or drink for today. She denies any recent injury or trauma. Patient had rectal bleeding, GI consulted --Acute metabolic encephalopathy CT head negative On empiric antibiotic IV Zosyn Supportive care --Rectal bleeding; n.p.o. status Follow H&H, GI consult Possible endoscopy --Failure to thrive Secondary to underlying disease process Nutrition consult, encourage increase oral intake --ESRD on HD:/ HD per schedule nephrology following --Anemia of chronic disease s/p 1 unit PRBC transfusion Monitor H&H and transfuse as needed --Excoriation to sacrum Wound care consult pending --Hx MSSA lateral pulmonary septic emboli CT Chest shows: Slight interval improvement in bilateral pulmonary septic emboli. New airspace disease scattered throughout both lungs. 2. Interval increase in bilateral pleural effusions and free fluid in the upper abdomen. empiric IV ABX, --General debility PT OT, rehabilitation --Hx A-fib/Aflutter Can continue current management --HTN; moderate control Continue current antihypertensives and as needed medications --DVT PPX; Heparin --Full code Monitor closely and adjust management as needed Plan of care reviewed with the patient, family member at the bedside And patient's nurse History Interval history: Patient seen and examined medical records reviewed No new episodes of rectal bleeding, patient feels slightly better Confused at times Vital signs noted Hospitalist Physical - Constitutional Vitals: Temp Pulse Resp BP Pulse Ox 98.0 F 87 20 125/97 99 01/05/19 07:05 01/05/19 07:05 01/05/19 07:05 01/05/19 07:05 01/05/19 07:05 General appearance: Present: no acute distress, well-nourished - EENT Eyes: Present: PERRL, EOM intact - Neck Neck: Present: supple, normal ROM - Respiratory Respiratory effort: normal Respiratory: bilateral: diminished, negative: rales, rhonchi, wheezing - Cardiovascular Rhythm: regular Heart Sounds: Present: S1 & S2 - Extremities Extremities: no ischemia, No edema - Abdominal General gastrointestinal: soft, non-tender, non-distended, normal bowel sounds - Integumentary Integumentary: Present: clear, warm - Psychiatric Psychiatric: appropriate mood/affect, cooperative - Neurologic Neurologic: CNII-XII intact, moves all extremities Results - Labs CBC & Chem 7: 01/06/19 04:05 01/06/19 04:05 Labs: Laboratory Last Values WBC 9.9 K/mm3 (4.5-11.0) 01/04/19 18:57 RBC 2.85 M/mm3 (3.65-5.03) L 01/04/19 18:57 Hgb 7.7 gm/dl (11.8-15.2) L 01/05/19 04:14 Hct 23.7 % (35.5-45.6) L 01/05/19 04:14 MCV 86 fl (84-94) 01/04/19 18:57 MCH 28 pg (28-32) 01/04/19 18:57 MCHC 33 % (32-34) 01/04/19 18:57 RDW 18.9 % (13.2-15.2) H 01/04/19 18:57 Plt Count 193 K/mm3 (140-440) 01/04/19 18:57 Lymph % (Auto) 17.9 % (13.4-35.0) 01/04/19 18:57 [place] % (Auto) 10.1 % (0.0-7.3) H 01/04/19 18:57 Eos % (Auto) 0.1 % (0.0-4.3) 01/04/19 18:57 Baso % (Auto) 0.4 % (0.0-1.8) 01/04/19 18:57 Lymph # 1.8 K/mm3 (1.2-5.4) 01/04/19 18:57 [place] # 1.0 K/mm3 (0.0-0.8) H 01/04/19 18:57 Eos # 0.0 K/mm3 (0.0-0.4) 01/04/19 18:57 Baso # 0.0 K/mm3 (0.0-0.1) 01/04/19 18:57 Seg Neutrophils % 71.5 % (40.0-70.0) H 01/04/19 18:57 Seg Neutrophils # 7.0 K/mm3 (1.8-7.7) 01/04/19 18:57 PT 18.9 Sec. (12.2-14.9) H 01/05/19 04:14 INR 1.61 (0.87-1.13) H 01/05/19 04:14 APTT 36.4 Sec. (24.2-36.6) 01/05/19 04:14 VBG pH 7.387 (7.320-7.420) 01/04/19 18:57 Sodium 137 mmol/L (137-145) 01/04/19 18:57 Potassium 4.3 mmol/L (3.6-5.0) D 01/04/19 18:57 Chloride 94.2 mmol/L (98-107) L 01/04/19 18:57 Carbon Dioxide 25 mmol/L (22-30) 01/04/19 18:57 Anion Gap 22 mmol/L 01/04/19 18:57 BUN 33 mg/dL (9-20) H 01/04/19 18:57 Creatinine 5.6 mg/dL (0.8-1.5) H D 01/04/19 18:57 Estimated GFR 14 ml/min 01/04/19 18:57 BUN/Creatinine Ratio 7 % 01/04/19 18:57 Glucose 111 mg/dL (75-100) H 01/04/19 18:57 POC Glucose 124 (70-105) H 01/04/19 17:44 Calcium 9.3 mg/dL (8.4-10.2) 01/04/19 18:57 Total Bilirubin 0.50 mg/dL (0.1-1.2) 01/04/19 18:57 AST 30 units/L (5-40) 01/04/19 18:57 ALT < 5 units/L (7-56) L 01/04/19 18:57 Alkaline Phosphatase 100 units/L (35-129) 01/04/19 18:57 Ammonia 33.0 umol/L (25-60) 01/04/19 18:57 Total Creatine Kinase 103 units/L (55-170) 01/04/19 18:57 CK-MB (CK-2) 1.5 ng/mL (0.0-4.0) 01/04/19 18:57 CK-MB (CK-2) Rel Index 1.4 (0-4) 01/04/19 18:57 Troponin T 0.284 ng/mL (0.00-0.029) H* 01/04/19 22:47 Total Protein 8.3 g/dL (6.3-8.2) H 01/04/19 18:57 Albumin 2.7 g/dL (3.9-5) L 01/04/19 18:57 Albumin/Globulin Ratio 0.5 % 01/04/19 18:57 Salicylates < 0.3 mg/dL (2.8-20.0) L 01/04/19 18:57 Acetaminophen < 5.0 ug/mL (10.0-30.0) L 01/04/19 18:57 Plasma/Serum Alcohol < 0.01 % (0-0.07) 01/04/19 18:57 Blood Type O POSITIVE 01/05/19 04:14 Antibody Screen Negative 01/05/19 04:14 Crossmatch See Detail 01/05/19 04:14 Active Medications - Current Medications Current Medications: Generic Name Dose Route Start Last Admin Trade Name Freq PRN Reason Stop Dose Admin Acetaminophen 650 mg 01/05/19 00:52 Tylenol PO Q4H PRN Pain MILD(1-3)/Fever >100.5/NEIL Epoetin Jeramy 10,000 unit 01/05/19 18:00 Procrit IV TUTHSA [facility] Gabapentin 100 mg 01/05/19 06:00 01/05/19 05:19 Gabapentin PO Not Given Q8HR [facility] Piperacillin Sod/Tazobactam Sod 2.25 gm in 50 mls @ 100 mls/hr 01/05/19 02:00 01/05/19 02:11 Zosyn/Ns 2.25 Gm/50ml IV 100 mls/hr Q8H [facility] Administration Pantoprazole Sodium 80 mg/ 100 mls @ 10 mls/hr 01/05/19 05:00 01/05/19 05:13 Sodium Chloride IV 8 mg/hr DIRECT ISABELLA 10 mls/hr Administration 8 MG/HR Ondansetron HCl 4 mg 01/05/19 00:52 Zofran IV Q8H PRN Nausea And Vomiting Pneumococcal Polyvalent Vaccine 0.5 ml 01/05/19 12:00 Pneumovax 23 IM 01/05/19 12:01 .ONCE ONE Sevelamer Carbonate 2,400 mg 01/05/19 07:30 01/05/19 07:56 Renvela PO Not Given AC [facility]A Sodium Chloride 10 ml 01/05/19 10:00 Sodium Chloride Flush Syringe 10 Ml IV BID [facility] Sodium Chloride 10 ml 01/05/19 00:52 Sodium Chloride Flush Syringe 10 Ml IV PRN PRN LINE FLUSH
--- NOTE | 2019-01-05 09:48 | Gastroenterology Consultation ---
<RENETTA RAMIREZ - Last Filed: 01/05/19 10:06> History of Present Illness - Reason for Consult Consult date: 01/05/19 [facility] Requesting physician: REUBEN CANALES - History of Present Illness Patient is a 73 y/o male with PMH of HTN, Afib/Aflutter, ESRD on HD, chronic anemia, hyperparathyroidism, osteoarthritis, and recent prolonged hospital ization last month 11/2018 for infected right chest permacath and development of an MSSA bilateral pleural septic emboli who presented to ED with AMS and rectal bleeding to which GI has been consulted. This morning patient was resting in bed w/o acute distress but noted to be confused and unable to provide history (no family at bedside, tried to call family with no answer; history received per chart review). No evidence of abd pain or N/V. Per nursing patient with episode of rectal bleeding this am with bright red blood. No melena or hematochezia. Prior GI history unknown. No anticoagulants listed on home medication list but INR elevated. Upon exam, bright red blood was noted in diaper. Past History Past Medical History: atrial fib (atrial flutter), anemia (chronic anemia), ESRD (on HD T//), hypertension, other (hyper parathyroidism, osteoarthritis, infected right chest permacath (11/2018), mssa bilateral pulmonary septic emboli) Past Surgical History: Other (right chest permacath (removed 11/2018, left chest permacath, hemmoroidectomy) Social history: , lives with family Family history: no significant family history Medications and Allergies Allergies Allergy/AdvReac Type Severity Reaction Status Date / Time No Known Allergies Allergy Verified 08/27/18 16:19 Home Medications Medication Instructions Recorded Confirmed Last Taken Type Epoetin Jeramy 10,000 Unit [Procrit] 10,000 unit IV TUTHSA vial 12/19/18 01/05/19 Unknown Rx Gabapentin 100 mg PO Q8HR 30 Days #90 capsule 12/19/18 01/05/19 Unknown Rx Metoprolol [Lopressor TAB] 100 mg PO TID 30 Days #90 tablet 12/19/18 01/05/19 Unknown Rx Polyethylene Glycol 3350 [Miralax 17 gm PO QDAY 30 Days powd.pack 12/19/18 01/05/19 Unknown Rx 3350] Sevelamer Carbonate [Renvela] 2,400 mg PO AC 30 Days tablet 12/19/18 01/05/19 Unknown Rx amLODIPine 7.5 mg PO QDAY 30 Days #45 tablet 12/19/18 01/05/19 Unknown Rx oxyCODONE /ACETAMINOPHEN [Percocet 1 tab PO BID PRN #20 tablet 12/19/18 01/05/19 Unknown Rx 5/325 mg] AtorvaSTATin [Lipitor] 20 mg PO QHS 01/05/19 01/05/19 Unknown History cloNIDine [Catapres] 0.2 mg PO BID 01/05/19 01/05/19 Unknown History Active Meds: Active Medications Acetaminophen (Tylenol) 650 mg PO Q4H PRN PRN Reason: Pain MILD(1-3)/Fever >100.5/NEIL Epoetin Jeramy (Procrit) 10,000 unit IV TUTHSA [facility] Gabapentin (Gabapentin) 100 mg PO Q8HR [facility] Last Admin: 01/05/19 05:19 Dose: Not Given Documented by: Piperacillin Sod/Tazobactam Sod (Zosyn/Ns 2.25 Gm/50ml) 2.25 gm in 50 mls @ 100 mls/hr IV Q8H [facility] Last Admin: 01/05/19 02:11 Dose: 100 mls/hr Documented by: Pantoprazole Sodium 80 mg/ (Sodium Chloride) 100 mls @ 10 mls/hr IV DIRECT [facility] Last Admin: 01/05/19 05:13 Dose: 8 mg/hr, 10 mls/hr Documented by: Sodium Chloride (Nacl 0.9%) 100 mls @ 999 mls/hr IV SISSY PRN PRN Reason: Hypotension Ondansetron HCl (Zofran) 4 mg IV Q8H PRN PRN Reason: Nausea And Vomiting Pneumococcal Polyvalent Vaccine (Pneumovax 23) 0.5 ml IM .ONCE ONE Stop: 01/05/19 12:01 Sevelamer Carbonate (Renvela) 2,400 mg PO AC [facility] Last Admin: 01/05/19 07:56 Dose: Not Given Documented by: Sodium Chloride (Sodium Chloride Flush Syringe 10 Ml) 10 ml IV BID [facility] Sodium Chloride (Sodium Chloride Flush Syringe 10 Ml) 10 ml IV PRN PRN PRN Reason: LINE FLUSH medications reviewed/updated as required Review of Systems - Review of Systems ROS unobtainable: due to mental status Exam - Constitutional Vital Signs: Temp Pulse Resp BP Pulse Ox 98.0 F 87 20 125/97 99 01/05/19 07:05 01/05/19 07:05 01/05/19 07:05 01/05/19 07:05 01/05/19 07:05 General appearance: no acute distress, other (confused) - EENT Eyes: PERRL, EOM intact ENT: hearing intact - Respiratory Respiratory effort: normal Respiratory: bilateral: diminished - Cardiovascular Rhythm: regular - Gastrointestinal General gastrointestinal: Present: soft, non-distended, normal bowel sounds Rectal Exam: other (bright red blood in diaper noted upon exam) - Neurologic Neurological: disoriented - Labs CBC & Chem 7: 01/05/19 04:14 01/04/19 18:57 Lab Results: Laboratory Results - last 24 hr 01/04/19 01/04/19 01/04/19 17:44 18:57 18:57 WBC 9.9 RBC 2.85 L Hgb 8.0 L Hct 24.5 L MCV 86 MCH 28 MCHC 33 RDW 18.9 H Plt Count 193 Lymph % (Auto) 17.9 Cannon % (Auto) 10.1 H Eos % (Auto) 0.1 Baso % (Auto) 0.4 Lymph # 1.8 Cannon # 1.0 H Eos # 0.0 Baso # 0.0 Seg Neutrophils % 71.5 H Seg Neutrophils # 7.0 PT 20.4 H INR 1.78 H APTT 36.5 VBG pH Sodium Potassium Chloride Carbon Dioxide Anion Gap BUN Creatinine Estimated GFR BUN/Creatinine Ratio Glucose POC Glucose 124 H Calcium Total Bilirubin AST ALT Alkaline Phosphatase Ammonia Total Creatine Kinase CK-MB (CK-2) CK-MB (CK-2) Rel Index Troponin T Total Protein Albumin Albumin/Globulin Ratio Salicylates Acetaminophen Plasma/Serum Alcohol Blood Type Antibody Screen Crossmatch 01/04/19 01/04/19 01/04/19 18:57 18:57 18:57 WBC RBC Hgb Hct MCV MCH MCHC RDW Plt Count Lymph % (Auto) Cannon % (Auto) Eos % (Auto) Baso % (Auto) Lymph # Cannon # Eos # Baso # Seg Neutrophils % Seg Neutrophils # PT INR APTT VBG pH Sodium 137 Potassium 4.3 D Chloride 94.2 L Carbon Dioxide 25 Anion Gap 22 BUN 33 H Creatinine 5.6 H D Estimated GFR 14 BUN/Creatinine Ratio 7 Glucose 111 H POC Glucose Calcium 9.3 Total Bilirubin 0.50 AST 30 ALT < 5 L Alkaline Phosphatase 100 Ammonia Total Creatine Kinase CK-MB (CK-2) CK-MB (CK-2) Rel Index Troponin T 0.265 H* Total Protein 8.3 H Albumin 2.7 L Albumin/Globulin Ratio 0.5 Salicylates < 0.3 L Acetaminophen Plasma/Serum Alcohol < 0.01 Blood Type Antibody Screen Crossmatch 01/04/19 01/04/19 01/04/19 18:57 18:57 18:57 WBC RBC Hgb Hct MCV MCH MCHC RDW Plt Count Lymph % (Auto) Cannon % (Auto) Eos % (Auto) Baso % (Auto) Lymph # Cannon # Eos # Baso # Seg Neutrophils % Seg Neutrophils # PT INR APTT VBG pH 7.387 Sodium Potassium Chloride Carbon Dioxide Anion Gap BUN Creatinine Estimated GFR BUN/Creatinine Ratio Glucose POC Glucose Calcium Total Bilirubin AST ALT Alkaline Phosphatase Ammonia Total Creatine Kinase 103 CK-MB (CK-2) 1.5 CK-MB (CK-2) Rel Index 1.4 Troponin T Total Protein Albumin Albumin/Globulin Ratio Salicylates Acetaminophen < 5.0 L Plasma/Serum Alcohol Blood Type Antibody Screen Crossmatch 01/04/19 01/04/19 01/05/19 18:57 22:47 04:14 WBC RBC Hgb Hct MCV MCH MCHC RDW Plt Count Lymph % (Auto) Cannon % (Auto) Eos % (Auto) Baso % (Auto) Lymph # Cannon # Eos # Baso # Seg Neutrophils % Seg Neutrophils # PT 18.9 H INR 1.61 H APTT 36.4 VBG pH Sodium Potassium Chloride Carbon Dioxide Anion Gap BUN Creatinine Estimated GFR BUN/Creatinine Ratio Glucose POC Glucose Calcium Total Bilirubin AST ALT Alkaline Phosphatase Ammonia 33.0 Total Creatine Kinase CK-MB (CK-2) CK-MB (CK-2) Rel Index Troponin T 0.284 H* Total Protein Albumin Albumin/Globulin Ratio Salicylates Acetaminophen Plasma/Serum Alcohol Blood Type Antibody Screen Crossmatch 01/05/19 01/05/19 04:14 04:14 WBC RBC Hgb 7.7 L Hct 23.7 L MCV MCH MCHC RDW Plt Count Lymph % (Auto) Cannon % (Auto) Eos % (Auto) Baso % (Auto) Lymph # Cannon # Eos # Baso # Seg Neutrophils % Seg Neutrophils # PT INR APTT VBG pH Sodium Potassium Chloride Carbon Dioxide Anion Gap BUN Creatinine Estimated GFR BUN/Creatinine Ratio Glucose POC Glucose Calcium Total Bilirubin AST ALT Alkaline Phosphatase Ammonia Total Creatine Kinase CK-MB (CK-2) CK-MB (CK-2) Rel Index Troponin T Total Protein Albumin Albumin/Globulin Ratio Salicylates Acetaminophen Plasma/Serum Alcohol Blood Type O POSITIVE Antibody Screen Negative Crossmatch See Detail Assessment and Plan 1.hematochezia 2.anemia-chronic -LFTs WNL -plt WNL; INR 1.61(unknone if on anticoagulant at home?) -H/H 7.7/23.7 -continue to monitor H/H and transfuse as needed -hold blood thinning medications -patient with episode of rectal bleeding this am with bright red blood per nursing (bright red blood noted in diaper upon exam). No melena or hematemesis. -currently HD stable -etiology unclear-likely lower source -will order stat bleeding scan for further evaluation and prep for colonoscopy +/- EGD tomorrow pending on results -continue PPI and supportive care -will follow <LARRY BRUCE - Last Filed: 01/05/19 21:50> Medications and Allergies Active Meds: Active Medications Acetaminophen (Tylenol) 650 mg PO Q4H PRN PRN Reason: Pain MILD(1-3)/Fever >100.5/NEIL Epoetin Jeramy (Procrit) 10,000 unit IV TUTA [facility] Gabapentin (Gabapentin) 100 mg PO Q8HR [facility] Last Admin: 01/05/19 15:15 Dose: Not Given Documented by: Piperacillin Sod/Tazobactam Sod (Zosyn/Ns 2.25 Gm/50ml) 2.25 gm in 50 mls @ 100 mls/hr IV Q8H [facility] Last Admin: 01/05/19 02:11 Dose: 100 mls/hr Documented by: Pantoprazole Sodium 80 mg/ (Sodium Chloride) 100 mls @ 10 mls/hr IV DIRECT [facility] Last Admin: 01/05/19 05:13 Dose: 8 mg/hr, 10 mls/hr Documented by: Sodium Chloride (Nacl 0.9%) 100 mls @ 999 mls/hr IV SISSY PRN PRN Reason: Hypotension Ondansetron HCl (Zofran) 4 mg IV Q8H PRN PRN Reason: Nausea And Vomiting Polyethylene Glycol/Electrolytes (Golytely) 4,000 ml PO ONCE ONE Stop: 01/05/19 15:22 Sevelamer Carbonate (Renvela) 2,400 mg PO AC [facility] Last Admin: 01/05/19 07:56 Dose: Not Given Documented by: Sodium Chloride (Sodium Chloride Flush Syringe 10 Ml) 10 ml IV BID [facility] Sodium Chloride (Sodium Chloride Flush Syringe 10 Ml) 10 ml IV PRN PRN PRN Reason: LINE FLUSH Exam - Constitutional Vital Signs: Temp Pulse Resp BP Pulse Ox 98.2 F 90 20 116/74 99 01/05/19 14:12 01/05/19 15:00 01/05/19 14:12 01/05/19 15:00 01/05/19 14:12 - Labs CBC & Chem 7: 01/05/19 04:14 01/04/19 18:57 Lab Results: Laboratory Results - last 24 hr 01/04/19 01/04/19 01/04/19 17:44 18:57 18:57 WBC 9.9 RBC 2.85 L Hgb 8.0 L Hct 24.5 L MCV 86 MCH 28 MCHC 33 RDW 18.9 H Plt Count 193 Lymph % (Auto) 17.9 Cannon % (Auto) 10.1 H Eos % (Auto) 0.1 Baso % (Auto) 0.4 Lymph # 1.8 Cannon # 1.0 H Eos # 0.0 Baso # 0.0 Seg Neutrophils % 71.5 H Seg Neutrophils # 7.0 PT 20.4 H INR 1.78 H APTT 36.5 VBG pH Sodium Potassium Chloride Carbon Dioxide Anion Gap BUN Creatinine Estimated GFR BUN/Creatinine Ratio Glucose POC Glucose 124 H Calcium Total Bilirubin AST ALT Alkaline Phosphatase Ammonia Total Creatine Kinase CK-MB (CK-2) CK-MB (CK-2) Rel Index Troponin T Total Protein Albumin Albumin/Globulin Ratio Salicylates Acetaminophen Plasma/Serum Alcohol Blood Type Antibody Screen Crossmatch 01/04/19 01/04/19 01/04/19 18:57 18:57 18:57 WBC RBC Hgb Hct MCV MCH MCHC RDW Plt Count Lymph % (Auto) Cannon % (Auto) Eos % (Auto) Baso % (Auto) Lymph # Cannon # Eos # Baso # Seg Neutrophils % Seg Neutrophils # PT INR APTT VBG pH Sodium 137 Potassium 4.3 D Chloride 94.2 L Carbon Dioxide 25 Anion Gap 22 BUN 33 H Creatinine 5.6 H D Estimated GFR 14 BUN/Creatinine Ratio 7 Glucose 111 H POC Glucose Calcium 9.3 Total Bilirubin 0.50 AST 30 ALT < 5 L Alkaline Phosphatase 100 Ammonia Total Creatine Kinase CK-MB (CK-2) CK-MB (CK-2) Rel Index Troponin T 0.265 H* Total Protein 8.3 H Albumin 2.7 L Albumin/Globulin Ratio 0.5 Salicylates < 0.3 L Acetaminophen Plasma/Serum Alcohol < 0.01 Blood Type Antibody Screen Crossmatch 01/04/19 01/04/19 01/04/19 18:57 18:57 18:57 WBC RBC Hgb Hct MCV MCH MCHC RDW Plt Count Lymph % (Auto) Cannon % (Auto) Eos % (Auto) Baso % (Auto) Lymph # Cannon # Eos # Baso # Seg Neutrophils % Seg Neutrophils # PT INR APTT VBG pH 7.387 Sodium Potassium Chloride Carbon Dioxide Anion Gap BUN Creatinine Estimated GFR BUN/Creatinine Ratio Glucose POC Glucose Calcium Total Bilirubin AST ALT Alkaline Phosphatase Ammonia Total Creatine Kinase 103 CK-MB (CK-2) 1.5 CK-MB (CK-2) Rel Index 1.4 Troponin T Total Protein Albumin Albumin/Globulin Ratio Salicylates Acetaminophen < 5.0 L Plasma/Serum Alcohol Blood Type Antibody Screen Crossmatch 01/04/19 01/04/19 01/05/19 18:57 22:47 04:14 WBC RBC Hgb Hct MCV MCH MCHC RDW Plt Count Lymph % (Auto) Cannon % (Auto) Eos % (Auto) Baso % (Auto) Lymph # Cannon # Eos # Baso # Seg Neutrophils % Seg Neutrophils # PT 18.9 H INR 1.61 H APTT 36.4 VBG pH Sodium Potassium Chloride Carbon Dioxide Anion Gap BUN Creatinine Estimated GFR BUN/Creatinine Ratio Glucose POC Glucose Calcium Total Bilirubin AST ALT Alkaline Phosphatase Ammonia 33.0 Total Creatine Kinase CK-MB (CK-2) CK-MB (CK-2) Rel Index Troponin T 0.284 H* Total Protein Albumin Albumin/Globulin Ratio Salicylates Acetaminophen Plasma/Serum Alcohol Blood Type Antibody Screen Crossmatch 01/05/19 01/05/19 04:14 04:14 WBC RBC Hgb 7.7 L Hct 23.7 L MCV MCH MCHC RDW Plt Count Lymph % (Auto) Cannon % (Auto) Eos % (Auto) Baso % (Auto) Lymph # Cannon # Eos # Baso # Seg Neutrophils % Seg Neutrophils # PT INR APTT VBG pH Sodium Potassium Chloride Carbon Dioxide Anion Gap BUN Creatinine Estimated GFR BUN/Creatinine Ratio Glucose POC Glucose Calcium Total Bilirubin AST ALT Alkaline Phosphatase Ammonia Total Creatine Kinase CK-MB (CK-2) CK-MB (CK-2) Rel Index Troponin T Total Protein Albumin Albumin/Globulin Ratio Salicylates Acetaminophen Plasma/Serum Alcohol Blood Type O POSITIVE Antibody Screen Negative Crossmatch See Detail Assessment and Plan Patient seen and examined. I have reviewed the advanced practitioner's e valuation, assessment, and plan, and agree with them. I note the following additions: patient with overt lower GI bleed NEGATIVE BLEEDING SCAN, therefore PLAN FOR COLON +/- EGD TOMORROW Order for prep placed, please ensure patient drinks the prep tonight, place NGT if needed - Patient Problems (1) Rectal bleed Current Visit: Yes Status: Acute (2) Rectal bleed Current Visit: Yes Status: Acute (3) Anemia Current Visit: No Status: Acute
[2019-01-05] MEDS ORDERED: amLODIPine 5 MG TAB PO SCH (10:00)
[2019-01-05] MEDS ORDERED: HEPARIN 5,000 UNIT/1 ML VIAL SUB-Q SCH (10:00)
[2019-01-05] MEDS ORDERED: POLYETHYLENE GLYCOL 3350 17 GM POWDER PO SCH (10:00)
[2019-01-05] MEDS ORDERED: SODIUM CHLORIDE 0.9% 100 ML IV PRN (10:00)
[2019-01-05] MEDS ORDERED: POLYETHYLENE GLYCOL/ELECT SOLN 4000 ML PO NR (10:11)
[2019-01-05] MEDS ORDERED: FLU VACC QUAD 2019-20 (3 YR UP)/PF 60 MCG/0.5 ML SYRINGE IM ONE (12:00)
[2019-01-05] MEDS ORDERED: PNEUMOCOCCAL 23 Valent 0.5 ML VIAL IM ONE (12:00)
--- NOTE | 2019-01-05 12:21 | Consultation ---
History of Present Illness - Reason for Consult Consult date: 01/05/19 - History of Present Illness 73 yo M PMHx MSSA bacteremia and infected septic emboli (s/p 6 weeks cefazolin), HTN, afib/a flutter, ESRd on HD admitted to the hospital with new complaints of AMS, which was noted by his to not be at his usual baseline. He was also noted to have decreased PO intake. he is well-known to our service due to his recent MSSA bacteremia and septic emboli, for which we completed a 6 week rosemary atment course of cefazolin. He was discharged to inpatient rehab from here, but has since gone home. He is noted to have a gluteal wound. he is a poor historian at present. Afebrile with a normal white count. Currently receiving zosyn. Blood cultures are negative thus far. Imaging personally reviewed: CT chest - improved septic emboli, new scattered airspace disease and worsening effusions. Past History Past Medical History: atrial fib (atrial flutter), anemia (chronic anemia), ESRD (on HD //), hypertension, other (hyper parathyroidism, osteoarthritis, infected right chest permacath (11/2018), mssa bilateral pulmonary septic emboli) Past Surgical History: Other (right chest permacath (removed 11/2018, left chest permacath, hemmoroidectomy) Social history: , lives with family Family history: no significant family history Medications and Allergies Allergies Allergy/AdvReac Type Severity Reaction Status Date / Time No Known Allergies Allergy Verified 08/27/18 16:19 Home Medications Medication Instructions Recorded Confirmed Last Taken Type Epoetin Jeramy 10,000 Unit [Procrit] 10,000 unit IV TUTHSA vial 12/19/18 01/05/19 Unknown Rx Gabapentin 100 mg PO Q8HR 30 Days #90 capsule 12/19/18 01/05/19 Unknown Rx Metoprolol [Lopressor TAB] 100 mg PO TID 30 Days #90 tablet 12/19/18 01/05/19 Unknown Rx Polyethylene Glycol 3350 [Miralax 17 gm PO QDAY 30 Days powd.pack 12/19/18 01/05/19 Unknown Rx 3350] Sevelamer Carbonate [Renvela] 2,400 mg PO AC 30 Days tablet 12/19/18 01/05/19 Unknown Rx amLODIPine 7.5 mg PO QDAY 30 Days #45 tablet 12/19/18 01/05/19 Unknown Rx oxyCODONE /ACETAMINOPHEN [Percocet 1 tab PO BID PRN #20 tablet 12/19/18 01/05/19 Unknown Rx 5/325 mg] AtorvaSTATin [Lipitor] 20 mg PO QHS 01/05/19 01/05/19 Unknown History cloNIDine [Catapres] 0.2 mg PO BID 01/05/19 01/05/19 Unknown History Active Meds: Active Medications Acetaminophen (Tylenol) 650 mg PO Q4H PRN PRN Reason: Pain MILD(1-3)/Fever >100.5/NEIL Epoetin Jeramy (Procrit) 10,000 unit IV TUTHSA [facility] Gabapentin (Gabapentin) 100 mg PO Q8HR [facility] Last Admin: 01/05/19 05:19 Dose: Not Given Documented by: Piperacillin Sod/Tazobactam Sod (Zosyn/Ns 2.25 Gm/50ml) 2.25 gm in 50 mls @ 100 mls/hr IV Q8H [facility] Last Admin: 01/05/19 02:11 Dose: 100 mls/hr Documented by: Pantoprazole Sodium 80 mg/ (Sodium Chloride) 100 mls @ 10 mls/hr IV DIRECT [facility] Last Admin: 01/05/19 05:13 Dose: 8 mg/hr, 10 mls/hr Documented by: Sodium Chloride (Nacl 0.9%) 100 mls @ 999 mls/hr IV SISSY PRN PRN Reason: Hypotension Ondansetron HCl (Zofran) 4 mg IV Q8H PRN PRN Reason: Nausea And Vomiting Polyethylene Glycol/Electrolytes (Golytely) 4,000 ml PO ONCE NR Stop: 01/05/19 14:00 Sevelamer Carbonate (Renvela) 2,400 mg PO AC [facility] Last Admin: 01/05/19 07:56 Dose: Not Given Documented by: Sodium Chloride (Sodium Chloride Flush Syringe 10 Ml) 10 ml IV BID [facility] Sodium Chloride (Sodium Chloride Flush Syringe 10 Ml) 10 ml IV PRN PRN PRN Reason: LINE FLUSH Review of Systems ROS unobtainable: due to mental status Physical Examination - Physical Exam Narrative exam: Physical Exam: Constitutional: Alert, cooperative. No acute distress Head, Ears, Nose: Normocephalic, atraumatic. External ears, nose normal Eyes: Conjunctivae/corneas clear. No icterus. No ptosis. Neck: Supple, no meningeal signs Oral: dentition fair, no thrush Cardiovascular: S1, S2 normal. Respiratory: Good air entry, clear to auscultation bilaterally GI: Soft, non-tender; bowel sounds normal. No peritoneal signs. Musculoskeletal: No pedal edema, no cyanosis. Skin: No rash or abscess Hem/Lymphatic: No palpable cervical or supraclavicular nodes. No lymphangitis Psych: Mood ok. Affect normal Neurological: Awake, alert, oriented. No gross abnormality - Constitutional Vitals: Vital Signs Temp Pulse Resp BP Pulse Ox 98.0 F 87 20 125/97 99 01/05/19 07:05 01/05/19 07:05 01/05/19 07:05 01/05/19 07:05 01/05/19 07:05 Temperature -Last 24 Hours Temperature 98.0 F Temperature 98.4 F Temperature 98.4 F Results - Labs CBC & Chem 7: 01/05/19 04:14 01/04/19 18:57 Labs: Abnormal lab results 01/04/19 01/04/19 01/04/19 Range/Units 17:44 18:57 18:57 RBC 2.85 L (3.65-5.03) M/mm3 Hgb 8.0 L (11.8-15.2) gm/dl Hct 24.5 L (35.5-45.6) % RDW 18.9 H (13.2-15.2) % Charlotte % (Auto) 10.1 H (0.0-7.3) % Charlotte # 1.0 H (0.0-0.8) K/mm3 Seg Neutrophils % 71.5 H (40.0-70.0) % PT 20.4 H (12.2-14.9) Sec. INR 1.78 H (0.87-1.13) Chloride (98-107) mmol/L BUN (9-20) mg/dL Creatinine (0.8-1.5) mg/dL Glucose (75-100) mg/dL POC Glucose 124 H (70-105) ALT (7-56) units/L Troponin T (0.00-0.029) ng/mL Total Protein (6.3-8.2) g/dL Albumin (3.9-5) g/dL Salicylates (2.8-20.0) mg/dL Acetaminophen (10.0-30.0) ug/mL Crossmatch 01/04/19 01/04/19 01/04/19 Range/Units 18:57 18:57 18:57 RBC (3.65-5.03) M/mm3 Hgb (11.8-15.2) gm/dl Hct (35.5-45.6) % RDW (13.2-15.2) % Charlotte % (Auto) (0.0-7.3) % Charlotte # (0.0-0.8) K/mm3 Seg Neutrophils % (40.0-70.0) % PT (12.2-14.9) Sec. INR (0.87-1.13) Chloride 94.2 L (98-107) mmol/L BUN 33 H (9-20) mg/dL Creatinine 5.6 H D (0.8-1.5) mg/dL Glucose 111 H (75-100) mg/dL POC Glucose (70-105) ALT < 5 L (7-56) units/L Troponin T 0.265 H* (0.00-0.029) ng/mL Total Protein 8.3 H (6.3-8.2) g/dL Albumin 2.7 L (3.9-5) g/dL Salicylates < 0.3 L (2.8-20.0) mg/dL Acetaminophen < 5.0 L (10.0-30.0) ug/mL Crossmatch 01/04/19 01/05/19 01/05/19 Range/Units 22:47 04:14 04:14 RBC (3.65-5.03) M/mm3 Hgb (11.8-15.2) gm/dl Hct (35.5-45.6) % RDW (13.2-15.2) % Charlotte % (Auto) (0.0-7.3) % Charlotte # (0.0-0.8) K/mm3 Seg Neutrophils % (40.0-70.0) % PT 18.9 H (12.2-14.9) Sec. INR 1.61 H (0.87-1.13) Chloride (98-107) mmol/L BUN (9-20) mg/dL Creatinine (0.8-1.5) mg/dL Glucose (75-100) mg/dL POC Glucose (70-105) ALT (7-56) units/L Troponin T 0.284 H* (0.00-0.029) ng/mL Total Protein (6.3-8.2) g/dL Albumin (3.9-5) g/dL Salicylates (2.8-20.0) mg/dL Acetaminophen (10.0-30.0) ug/mL Crossmatch See Detail 01/05/19 Range/Units 04:14 RBC (3.65-5.03) M/mm3 Hgb 7.7 L (11.8-15.2) gm/dl Hct 23.7 L (35.5-45.6) % RDW (13.2-15.2) % Charlotte % (Auto) (0.0-7.3) % Charlotte # (0.0-0.8) K/mm3 Seg Neutrophils % (40.0-70.0) % PT (12.2-14.9) Sec. INR (0.87-1.13) Chloride (98-107) mmol/L BUN (9-20) mg/dL Creatinine (0.8-1.5) mg/dL Glucose (75-100) mg/dL POC Glucose (70-105) ALT (7-56) units/L Troponin T (0.00-0.029) ng/mL Total Protein (6.3-8.2) g/dL Albumin (3.9-5) g/dL Salicylates (2.8-20.0) mg/dL Acetaminophen (10.0-30.0) ug/mL Crossmatch Assessment and Plan Cultures: 01/05/19 blood culture - no growth to date A/P: 73 yo M PMHx MSSA bacteremia and infected septic emboli (s/p 6 weeks cefazolin), HTN, afib/a flutter, ESRd on HD admitted with AMS 1. AMS - Unlikely to be infection related in the absence of other symptoms. He has been afebrile and has a normal white count. If his blood cultures remains negative would assume little risk for septic emboli for the brain at this point given fully treated bacteremia. Would cotninue for antibiotics for now pending the blood cultures being negative x48 hours, then will consider stopping. 2. Hx of infected permacath and MSSA bacteremia 3. Afib/flutter 4. ESRD on HD - renally dose antibiotics as appropriate Recs: - continue Zosyn - follow up blood cultures - if blood cultures remain negative expect to discontinue antibiotics. Thank you for the consult, we will continue to follow. Sarah Kenyon MD [facility] ([facility]) M: [phone] O: [phone] F: [phone]
--- NOTE | 2019-01-05 13:50 | Nuclear Medicine Report ---
NUCLEAR MEDICINE GI BLEEDING SCAN HISTORY: Lower GI bleed COMPARISON: CT abdomen and pelvis dated 12/27/2018 TECHNIQUE: After injection of autologous RBCs labeled in vitro with Tc-99m pertechnetate, sequential dynamic images of the abdomen were obtained for 60 minutes. These images were viewed in a cine displ ay. RADIOPHARMACEUTICAL: 19.8 mCi of [id number]-labeled RBCs FINDINGS: 1 hour dynamic imaging: Normal distribution of activity within the labeled blood pool with visualizat ion of the heart, liver, spleen, and genitourinary tract. Normal vessels are identified. No abnorma l focus of activity is identified. IMPRESSION: 1. No evidence of active GI bleeding over 1 hour. Sensitivity of this study is approximately 0.5-1 ml active GI bleeding/minute. Signer Name: Hemanth Matute Jr, MD Signed: 01/05/2019 1:45 PM Workstation Name: [id number]
[2019-01-05] MEDS ORDERED: POLYETHYLENE GLYCOL/ELECT SOLN 4000 ML PO ONE (15:21)
--- NOTE | 2019-01-05 16:26 | Consultation ---
History of Present Illness - Reason for Consult Consult date: 01/05/19 end stage renal disease Requesting physician: REUBEN CANALES - History of Present Illness This is a 73 yo M with past medical history of hypertension, A. fib/A flutter, ESRD on HD, chronic anemia, hyperparathyroidism, osteoarthritis, infected permacath, and MSSA bilateral pulmonary septic emboli with recent prolonged hospitalization/rehab, who presents [facility] ED with c/o of AMS. As per patient's patient was not acting like his usual self and pt became more and more confused. Pt also had an episode of rectal bleeding. patient reportedly hasn't had anything to eat or drink for a day. Pt is admitted for further neurological/GI evaluation. Renal consult is requested for management of ESR D/HD. Pt reports that he has been compliant with all his HD treatments. Past History Past Medical History: atrial fib (atrial flutter), anemia (chronic anemia), ESRD (on HD T//), hypertension, other (hyper parathyroidism, osteoarthritis, infected right chest permacath (11/2018), mssa bilateral pulmonary septic emboli) Past Surgical History: Other (right chest permacath (removed 11/2018, left chest permacath, hemmoroidectomy) Social history: , lives with family Family history: no significant family history Medications and Allergies Allergies Allergy/AdvReac Type Severity Reaction Status Date / Time No Known Allergies Allergy Verified 08/27/18 16:19 Home Medications Medication Instructions Recorded Confirmed Last Taken Type Epoetin Jeramy 10,000 Unit [Procrit] 10,000 unit IV TUTHSA vial 12/19/18 01/05/19 Unknown Rx Gabapentin 100 mg PO Q8HR 30 Days #90 capsule 12/19/18 01/05/19 Unknown Rx Metoprolol [Lopressor TAB] 100 mg PO TID 30 Days #90 tablet 12/19/18 01/05/19 Unknown Rx Polyethylene Glycol 3350 [Miralax 17 gm PO QDAY 30 Days powd.pack 12/19/18 01/05/19 Unknown Rx 3350] Sevelamer Carbonate [Renvela] 2,400 mg PO AC 30 Days tablet 12/19/18 01/05/19 Unknown Rx amLODIPine 7.5 mg PO QDAY 30 Days #45 tablet 12/19/18 01/05/19 Unknown Rx oxyCODONE /ACETAMINOPHEN [Percocet 1 tab PO BID PRN #20 tablet 12/19/18 01/05/19 Unknown Rx 5/325 mg] AtorvaSTATin [Lipitor] 20 mg PO QHS 01/05/19 01/05/19 Unknown History cloNIDine [Catapres] 0.2 mg PO BID 01/05/19 01/05/19 Unknown History Active Meds: Active Medications Acetaminophen (Tylenol) 650 mg PO Q4H PRN PRN Reason: Pain MILD(1-3)/Fever >100.5/NEIL Epoetin Jeramy (Procrit) 10,000 unit IV TUTHSA [facility] Gabapentin (Gabapentin) 100 mg PO Q8HR [facility] Last Admin: 01/05/19 15:15 Dose: Not Given Documented by: Piperacillin Sod/Tazobactam Sod (Zosyn/Ns 2.25 Gm/50ml) 2.25 gm in 50 mls @ 100 mls/hr IV Q8H [facility] Last Admin: 01/05/19 02:11 Dose: 100 mls/hr Documented by: Pantoprazole Sodium 80 mg/ (Sodium Chloride) 100 mls @ 10 mls/hr IV DIRECT [facility] Last Admin: 01/05/19 05:13 Dose: 8 mg/hr, 10 mls/hr Documented by: Sodium Chloride (Nacl 0.9%) 100 mls @ 999 mls/hr IV SISSY PRN PRN Reason: Hypotension Ondansetron HCl (Zofran) 4 mg IV Q8H PRN PRN Reason: Nausea And Vomiting Sevelamer Carbonate (Renvela) 2,400 mg PO AC [facility] Last Admin: 01/05/19 07:56 Dose: Not Given Documented by: Sodium Chloride (Sodium Chloride Flush Syringe 10 Ml) 10 ml IV BID [facility] Sodium Chloride (Sodium Chloride Flush Syringe 10 Ml) 10 ml IV PRN PRN PRN Reason: LINE FLUSH Review of Systems ROS unobtainable: due to mental status All systems: negative Constitutional: weakness Exam - Vital Signs Vital signs: Vital Signs Temp Pulse Resp BP Pulse Ox 98.4 F 94 H 15 125/83 99 01/04/19 17:45 01/04/19 17:45 01/04/19 17:45 01/04/19 17:45 01/04/19 17:45 - General Appearance General appearance: well-developed, well-nourished, appears stated age EENT: ATNC, PERRL, mucous membranes moist Neck: Present: neck supple Respiratory: Clear to Ascultation Heart: regular, S1S2 Gastrointestinal: Present: normoactive bowel sounds Integumentary: no rash, other (no edema ) Neurologic: no focal deficit, alert and oriented x3, strength 5/5, CN 3-12 intact Psychiatric: mood/affect appropriate, cooperative Results - Lab Results 01/05/19 04:14 01/04/19 18:57 Most recent lab results Calcium 9.3 mg/dL (8.4-10.2) 01/04/19 18:57 Assessment and Plan - Patient Problems (1) ESRD (end stage renal disease) Current Visit: No Status: Chronic Plan to address problem: cont HD on TTS schedule (2) Hypertensive chronic kidney disease with stage 5 chronic kidney disease or end stage renal disease Current Visit: No Status: Acute Plan to address problem: monitor BP on current meds (3) Rectal bleed Current Visit: Yes Status: Acute Plan to address problem: check serial Hb, transfuse for Hb < 7, follow GI recommendations. (4) Anemia in CKD (chronic kidney disease) Current Visit: No Status: Acute Qualifiers: Chronic kidney disease stage: stage 5, not on chronic dialysis Qualified Code(s): N18.5 - Chronic kidney disease, stage 5; D63.1 - Anemia in chronic kidney disease Plan to address problem: started on EPO with HD
[2019-01-05] MEDS: EPOETIN ALFA 10,000 UNIT/1 ML INJ IV SCH (18:50)
[2019-01-05 19:08] LABS: Hepatitis B Surface Antigen Non-Reactive (Negative); Hepatitis C Virus Antibody Non-Reactive (NonReactive)
[2019-01-06 04:43] LABS: Basophils % (Auto) 0.2 % (0.0-1.8); Eosinophils # (Auto) 0.1 K/mm3 (0.0-0.4); Eosinophils % (Auto) 0.7 % (0.0-4.3); Hematocrit 25.1 % (35.5-45.6); Hemoglobin 8.3 gm/dl (11.8-15.2); Lymphocytes # (Auto) 2.2 K/mm3 (1.2-5.4); Lymphocytes % (Auto) 26.6 % (13.4-35.0); Mean Corpuscular HGB Conc 33 % (32-34); Mean Corpuscular Volume 86 fl (84-94); Monocytes # (Auto) 1.2 K/mm3 (0.0-0.8); Monocytes % (Auto) 14.1 % (0.0-7.3); Platelet Count 169 K/mm3 (140-440); Red Blood Count 2.92 M/mm3 (3.65-5.03)
[2019-01-06 04:55] LABS: Calcium 8.4 mg/dL (8.4-10.2)
[2019-01-06] MEDS: SEVELAMER CARBONATE 800 MG TAB PO SCH ×3 (08:18→17:20)
--- NOTE | 2019-01-06 10:11 | Gastroenterology Progress Note ---
Assessment and Plan Will put on clears, encourage patient to drink prep, I recommend enlisting the to help him drink the prep (I am trying to contact her) will reschedule the colon for tomorrow - Patient Problems (1) Rectal bleed Current Visit: Yes Status: Acute (2) Rectal bleed Current Visit: Yes Status: Acute (3) Anemia Current Visit: No Status: Acute Subjective Date of service: 01/06/19 Principal diagnosis: rectal bleeding Interval history: Still with rectal bleeding overnight, though nurse reports last BM this AM without blood Pt did not drink prep (pulled NGT and declined to drink prep) Will put on clears, encourage patient to drink prep, I recommend enlisting the to help him drink the prep (I am trying to contact her) will reschedule the colon for tomorrow Objective - Constitutional Vitals: Temp Pulse Resp BP Pulse Ox 99.1 F 114 H 20 137/81 92 01/06/19 07:51 01/06/19 07:51 01/06/19 07:51 01/06/19 07:51 01/06/19 07:51 General appearance: no acute distress - Respiratory Respiratory effort: normal - Gastrointestinal General gastrointestinal: Present: soft - Labs CBC & Chem 7: 01/06/19 04:05 01/06/19 04:05 Labs: Laboratory Results - last 24 hr 01/05/19 01/05/19 01/06/19 04:14 11:19 04:05 WBC 8.2 RBC 2.92 L Hgb 8.3 L Hct 25.1 L MCV 86 MCH 28 MCHC 33 RDW 18.0 H Plt Count 169 Lymph % (Auto) 26.6 [place] % (Auto) 14.1 H Eos % (Auto) 0.7 Baso % (Auto) 0.2 Lymph # 2.2 [place] # 1.2 H Eos # 0.1 Baso # 0.0 Seg Neutrophils % 58.4 Seg Neutrophils # 4.8 Sodium Potassium Chloride Carbon Dioxide Anion Gap BUN Creatinine Estimated GFR BUN/Creatinine Ratio Glucose Calcium Hepatitis A IgM Ab Non-reactive Hep Bs Antigen Non-reactive Hep B Core IgM Ab Non-reactive Hepatitis C Antibody Non-reactive Blood Type O POSITIVE Antibody Screen Negative Crossmatch See Detail 01/06/19 04:05 WBC RBC Hgb Hct MCV MCH MCHC RDW Plt Count Lymph % (Auto) [place] % (Auto) Eos % (Auto) Baso % (Auto) Lymph # [place] # Eos # Baso # Seg Neutrophils % Seg Neutrophils # Sodium 137 Potassium 3.8 Chloride 94.0 L Carbon Dioxide 27 Anion Gap 20 BUN 19 Creatinine 3.5 H Estimated GFR 21 BUN/Creatinine Ratio 5 Glucose 81 Calcium 8.4 Hepatitis A IgM Ab Hep Bs Antigen Hep B Core IgM Ab Hepatitis C Antibody Blood Type Antibody Screen Crossmatch
[2019-01-06] MEDS: PIPERACIL-TAZO 2.25 GM/50 ML 2.25 GM/50 ML BAG IV SCH ×3 (10:30→17:21)
--- NOTE | 2019-01-06 11:37 | Progress Note ---
Assessment and Plan - Patient Problems (1) ESRD (end stage renal disease) Current Visit: No Status: Chronic Plan to address problem: cont HD on TTS schedule (2) Hypertensive chronic kidney disease with stage 5 chronic kidney disease or end stage renal disease Current Visit: No Status: Acute Plan to address problem: monitor BP on current meds (3) Rectal bleed Current Visit: Yes Status: Acute Plan to address problem: check serial Hb, transfuse for Hb < 7, follow GI recommendations. (4) Anemia in CKD (chronic kidney disease) Current Visit: No Status: Acute Qualifiers: Chronic kidney disease stage: stage 5, not on chronic dialysis Qualified Code(s): N18.5 - Chronic kidney disease, stage 5; D63.1 - Anemia in chronic kidney disease Plan to address problem: cont EPO with HD Subjective Date of service: 01/06/19 Principal diagnosis: rectal bleeding Interval history: Pt awake, alert, in no acute distress Objective - Vital Signs Vital signs: Vital Signs - 12hr 01/06/19 01/06/19 02:50 07:51 Temperature 97.6 F 99.1 F Pulse Rate 114 H Respiratory 20 20 Rate Blood Pressure 149/85 137/81 O2 Sat by Pulse 92 Oximetry - General Appearance General appearance: well-developed, well-nourished, appears stated age EENT: ATNC, PERRL, mucous membranes moist Neck: no JVD Respiratory: Present: Clear to Ascultation Cardiology: regular, S1S2 Gastrointestinal: normoactive bowel sounds Integumentary: no rash Neurologic: no focal deficit, alert and oriented x3, strength 5/5, CN 3-12 intact Psychiatric: mood/affect appropriate, cooperative - Lab 01/06/19 04:05 01/06/19 04:05 Most recent lab results Calcium 8.4 mg/dL (8.4-10.2) 01/06/19 04:05 Medications & Allergies - Medications Allergies/Adverse Reactions: Allergies No Known Allergies Allergy (Verified 08/27/18 16:19) Home Medications: Home Medications Medication Instructions Recorded Confirmed Last Taken Type Epoetin Jeramy 10,000 Unit [Procrit] 10,000 unit IV TUTHSA vial 12/19/18 01/05/19 Unknown Rx Gabapentin 100 mg PO Q8HR 30 Days #90 capsule 12/19/18 01/05/19 Unknown Rx Metoprolol [Lopressor TAB] 100 mg PO TID 30 Days #90 tablet 12/19/18 01/05/19 Unknown Rx Polyethylene Glycol 3350 [Miralax 17 gm PO QDAY 30 Days powd.pack 12/19/18 01/05/19 Unknown Rx 3350] Sevelamer Carbonate [Renvela] 2,400 mg PO AC 30 Days tablet 12/19/18 01/05/19 Unknown Rx amLODIPine 7.5 mg PO QDAY 30 Days #45 tablet 12/19/18 01/05/19 Unknown Rx oxyCODONE /ACETAMINOPHEN [Percocet 1 tab PO BID PRN #20 tablet 12/19/18 01/05/19 Unknown Rx 5/325 mg] AtorvaSTATin [Lipitor] 20 mg PO QHS 01/05/19 01/05/19 Unknown History cloNIDine [Catapres] 0.2 mg PO BID 01/05/19 01/05/19 Unknown History Active Medications: Generic Name Dose Route Start Last Admin Trade Name Freq PRN Reason Stop Dose Admin Acetaminophen 650 mg 01/05/19 00:52 Tylenol PO Q4H PRN Pain MILD(1-3)/Fever >100.5/NEIL Epoetin Jeramy 10,000 unit 01/05/19 18:00 01/05/19 18:50 Procrit IV Not Given TUTHSA ISABELLA Gabapentin 100 mg 01/05/19 06:00 01/05/19 15:15 Gabapentin PO Not Given Q8HR ISABELLA Piperacillin Sod/Tazobactam Sod 2.25 gm in 50 mls @ 100 mls/hr 01/05/19 02:00 01/05/19 18:30 Zosyn/Ns 2.25 Gm/50ml IV Not Given Q8H ISABELLA Pantoprazole Sodium 80 mg/ 100 mls @ 10 mls/hr 01/05/19 05:00 01/05/19 05:13 Sodium Chloride IV 8 mg/hr DIRECT ISABELLA 10 mls/hr Administration 8 MG/HR Sodium Chloride 100 mls @ 999 mls/hr 01/05/19 10:00 Nacl 0.9% IV SISSY PRN Hypotension Ondansetron HCl 4 mg 01/05/19 00:52 Zofran IV Q8H PRN Nausea And Vomiting Polyethylene Glycol/Electrolytes 4,000 ml 01/06/19 18:00 Golytely PO 01/06/19 18:01 ONCE ONE Sevelamer Carbonate 2,400 mg 01/05/19 07:30 01/06/19 10:59 Renvela PO 2,400 mg AC ISABELLA Administration Sodium Chloride 10 ml 01/05/19 10:00 01/06/19 11:04 Sodium Chloride Flush Syringe 10 Ml IV 10 ml BID ISABELLA Administration Sodium Chloride 10 ml 01/05/19 00:52 Sodium Chloride Flush Syringe 10 Ml IV PRN PRN LINE FLUSH
--- NOTE | 2019-01-06 11:55 | Progress Note ---
Assessment and Plan Assessment and plan: 73-year-old -[place] male with history of hypertension, A. fib/A flutter, ESRD on HD, chronic anemia, hyperparathyroidism, osteoarthritis, infected permacath, and MSSA bilateral pulmonary septic emboli who presents [facility] ED with c/o of AMS. Poor oral intake. Patient had anemia, received 1 unit of PRBC Patient had rectal bleeding, GI consulted, scheduled for EGD, however poor preparation --Rectal bleeding; n.p.o. status GI evaluated the patient, colonoscopy scheduled for today However poor preparation, she is scheduled for tomorrow --Acute metabolic encephalopathy CT head negative On empiric antibiotic IV Zosyn Supportive care --Failure to thrive Secondary to underlying disease process Nutrition consult, encourage increase oral intake --Severe malnutrition; nutrition supplements Nutrition consult --ESRD on HD:/ HD per schedule nephrology following --Anemia of chronic disease s/p 1 unit PRBC transfusion Monitor H&H and transfuse as needed --Excoriation to sacrum Wound care consult pending --Hx MSSA lateral pulmonary septic emboli CT Chest shows: Slight interval improvement in bilateral pulmonary septic emboli. New airspace disease scattered throughout both lungs. 2. Interval increase in bilateral pleural effusions and free fluid in the upper abdomen. empiric IV ABX, --General debility PT OT, rehabilitation --Hx A-fib/Aflutter Can continue current management --HTN; moderate control Continue current antihypertensives and as needed medications --DVT PPX; Heparin --Full code Monitor closely and adjust management as needed Plan of care reviewed with the patient, family member at the bedside And patient's nurse History Interval history: Patient did not have good palpation colonoscopy rescheduled for tomorrow The patient has no new episodes of bleeding Comfortably no new complaints Vital signs reviewed Hospitalist Physical - Constitutional Vitals: Temp Pulse Resp BP Pulse Ox 99.1 F 114 H 20 137/81 92 01/06/19 07:51 01/06/19 07:51 01/06/19 07:51 01/06/19 07:51 01/06/19 07:51 General appearance: Present: no acute distress, well-nourished - EENT Eyes: Present: PERRL, EOM intact - Neck Neck: Present: supple, normal ROM - Respiratory Respiratory effort: normal Respiratory: bilateral: diminished, negative: rales, rhonchi, wheezing - Cardiovascular Rhythm: regular Heart Sounds: Present: S1 & S2 - Extremities Extremities: no ischemia, No edema - Abdominal General gastrointestinal: soft, non-tender, non-distended, normal bowel sounds - Integumentary Integumentary: Present: clear, warm - Psychiatric Psychiatric: other (Confused at times) - Neurologic Neurologic: CNII-XII intact, moves all extremities Results - Labs CBC & Chem 7: 01/06/19 04:05 01/06/19 04:05 Labs: Laboratory Last Values WBC 8.2 K/mm3 (4.5-11.0) 01/06/19 04:05 RBC 2.92 M/mm3 (3.65-5.03) L 01/06/19 04:05 Hgb 8.3 gm/dl (11.8-15.2) L 01/06/19 04:05 Hct 25.1 % (35.5-45.6) L 01/06/19 04:05 MCV 86 fl (84-94) 01/06/19 04:05 MCH 28 pg (28-32) 01/06/19 04:05 MCHC 33 % (32-34) 01/06/19 04:05 RDW 18.0 % (13.2-15.2) H 01/06/19 04:05 Plt Count 169 K/mm3 (140-440) 01/06/19 04:05 Lymph % (Auto) 26.6 % (13.4-35.0) 01/06/19 04:05 [place] % (Auto) 14.1 % (0.0-7.3) H 01/06/19 04:05 Eos % (Auto) 0.7 % (0.0-4.3) 01/06/19 04:05 Baso % (Auto) 0.2 % (0.0-1.8) 01/06/19 04:05 Lymph # 2.2 K/mm3 (1.2-5.4) 01/06/19 04:05 [place] # 1.2 K/mm3 (0.0-0.8) H 01/06/19 04:05 Eos # 0.1 K/mm3 (0.0-0.4) 01/06/19 04:05 Baso # 0.0 K/mm3 (0.0-0.1) 01/06/19 04:05 Seg Neutrophils % 58.4 % (40.0-70.0) 01/06/19 04:05 Seg Neutrophils # 4.8 K/mm3 (1.8-7.7) 01/06/19 04:05 PT 18.9 Sec. (12.2-14.9) H 01/05/19 04:14 INR 1.61 (0.87-1.13) H 01/05/19 04:14 APTT 36.4 Sec. (24.2-36.6) 01/05/19 04:14 VBG pH 7.387 (7.320-7.420) 01/04/19 18:57 Sodium 137 mmol/L (137-145) 01/06/19 04:05 Potassium 3.8 mmol/L (3.6-5.0) 01/06/19 04:05 Chloride 94.0 mmol/L (98-107) L 01/06/19 04:05 Carbon Dioxide 27 mmol/L (22-30) 01/06/19 04:05 Anion Gap 20 mmol/L 01/06/19 04:05 BUN 19 mg/dL (9-20) 01/06/19 04:05 Creatinine 3.5 mg/dL (0.8-1.5) H 01/06/19 04:05 Estimated GFR 21 ml/min 01/06/19 04:05 BUN/Creatinine Ratio 5 % 01/06/19 04:05 Glucose 81 mg/dL (75-100) 01/06/19 04:05 POC Glucose 124 (70-105) H 01/04/19 17:44 Calcium 8.4 mg/dL (8.4-10.2) 01/06/19 04:05 Total Bilirubin 0.50 mg/dL (0.1-1.2) 01/04/19 18:57 AST 30 units/L (5-40) 01/04/19 18:57 ALT < 5 units/L (7-56) L 01/04/19 18:57 Alkaline Phosphatase 100 units/L (35-129) 01/04/19 18:57 Ammonia 33.0 umol/L (25-60) 01/04/19 18:57 Total Creatine Kinase 103 units/L (55-170) 01/04/19 18:57 CK-MB (CK-2) 1.5 ng/mL (0.0-4.0) 01/04/19 18:57 CK-MB (CK-2) Rel Index 1.4 (0-4) 01/04/19 18:57 Troponin T 0.284 ng/mL (0.00-0.029) H* 01/04/19 22:47 Total Protein 8.3 g/dL (6.3-8.2) H 01/04/19 18:57 Albumin 2.7 g/dL (3.9-5) L 01/04/19 18:57 Albumin/Globulin Ratio 0.5 % 01/04/19 18:57 Salicylates < 0.3 mg/dL (2.8-20.0) L 01/04/19 18:57 Acetaminophen < 5.0 ug/mL (10.0-30.0) L 01/04/19 18:57 Plasma/Serum Alcohol < 0.01 % (0-0.07) 01/04/19 18:57 Hepatitis A IgM Ab Non-reactive (NonReactive) 01/05/19 11: Hep Bs Antigen Non-reactive (Negative) 01/05/19: Hep B Core IgM Ab Non-reactive (NonReactive) 01/05/19 11: Hepatitis C Antibody Non-reactive (NonReactive) 01/05/19 11: Blood Type O POSITIVE 01/05/19 04:14 Antibody Screen Negative 01/05/19 04:14 Crossmatch See Detail 01/05/19 04:14 Active Medications - Current Medications Current Medications: Generic Name Dose Route Start Last Admin Trade Name Freq PRN Reason Stop Dose Admin Acetaminophen 650 mg 01/05/19 00:52 Tylenol PO Q4H PRN Pain MILD(1-3)/Fever >100.5/NEIL Epoetin Jeramy 10,000 unit 01/05/19 18:00 01/05/19 18:50 Procrit IV Not Given TUTHSA ISABELLA Gabapentin 100 mg 01/05/19 06:00 01/05/19 15:15 Gabapentin PO Not Given Q8HR ISABELLA Piperacillin Sod/Tazobactam Sod 2.25 gm in 50 mls @ 100 mls/hr 01/05/19 02:00 01/05/19 18:30 Zosyn/Ns 2.25 Gm/50ml IV Not Given Q8H ISABELLA Pantoprazole Sodium 80 mg/ 100 mls @ 10 mls/hr 01/05/19 05:00 01/05/19 05:13 Sodium Chloride IV 8 mg/hr DIRECT ISABELLA 10 mls/hr Administration 8 MG/HR Sodium Chloride 100 mls @ 999 mls/hr 01/05/19 10:00 Nacl 0.9% IV SISSY PRN Hypotension Ondansetron HCl 4 mg 01/05/19 00:52 Zofran IV Q8H PRN Nausea And Vomiting Polyethylene Glycol/Electrolytes 4,000 ml 01/06/19 18:00 Golytely PO 01/06/19 18:01 ONCE ONE Sevelamer Carbonate 2,400 mg 01/05/19 07:30 01/06/19 10:59 Renvela PO 2,400 mg AC ISABELLA Administration Sodium Chloride 10 ml 01/05/19 10:00 01/06/19 11:04 Sodium Chloride Flush Syringe 10 Ml IV 10 ml BID ISABELLA Administration Sodium Chloride 10 ml 01/05/19 00:52 Sodium Chloride Flush Syringe 10 Ml IV PRN PRN LINE FLUSH Nutrition/Malnutrition Assess - Dietary Evaluation Nutrition/Malnutrition Findings: Nutrition Notes Start: 01/05/19 10:28 Freq: Status: Active Protocol: Document 01/05/19 10:28 CC (Rec: 01/05/19 11:03 CC [id number]) Co-Sign 01/05/19 10:28 LM Nutrition Notes Need for Assessment generated from: operations support representative,MST Initial or Follow up Assessment Current Diagnosis CKD (stage V CKD),Hypertension Other Pertinent Diagnosis AMS, ESRD (HD T, Th, Sat) Current Diet npo Labs/Tests BUN 33, Creat 5.6, Troponin T 0.284 Pertinent Medications reviewed Height 5 ft 6 in Weight 67.358 kg Usual Body Weight 70.9 kg Bailey Body Weight (kg) 64.54 BMI 23.9 Intake Prior to Admission Good Weight change and time frame 12.5%/ 5 days Weight Status Appropriate Subjective/Other Information Screen for MST score. Pt reported his appetite was good [employer]. Pt reported he has not unitentionaly lost weight recently but reported his UBW to be 180lbs (70.9kg). Pt reported he does not know when he last weighed this. Pt reported to have abd cramping/ pain. Pt reported he will be recieving HD today. Noted pt wt previously 77kg when adtmitted 12/31/18. Percent of energy/protein needs met: 0%/0% Burn Absent Trauma Absent GI Symptoms Constipation,Other Food Allergy No Current % PO Negligible Minimum of two criteria No Interpretation of Weight Loss (severe) >2% in 1 week #1 Nutrition Diagnosis Inadequate oral intake Etiology pt to receive rectal exam As Evidenced by Signs and Symptoms npo Is patient on ventilator? No Is Patient Ambulatory and/or Out of Bed Yes REE-([place]. Jeor-ambulatory/OOB) [ 1782.729 [id number]] Calculation Used for Recommendations [place] or Additional Notes PRO: 80-100g/day (1.2-1.5g/kg) Fluid: per MD Nutrition Intervention Change Diet Order: renal diet when medically feasible Goal #1 Advance diet when medically feasible Goal #2 Meet at least 80% of energy and protein needs via PO when diet advances Anticipated Discharge Needs: renal diet Follow-Up By: 01/07/19 Additional Comments F/U diet advancement, PO intake
[2019-01-06] MEDS: GABAPENTIN 100 MG CAP PO SCH ×3 (13:02→22:16)
--- NOTE | 2019-01-06 14:29 | Progress Note ---
Assessment and Plan Cultures: 01/05/19 blood culture - no growth to date A/P: 73 yo M PMHx MSSA bacteremia and infected septic emboli (s/p 6 weeks cefazolin), HTN, afib/a flutter, ESRd on HD admitted with AMS 1. AMS - Unlikely to be infection related in the absence of other symptoms. He has been afebrile and has a normal white count. If his blood cultures remains negative would assume little risk for septic emboli for the brain at this point given fully treated bacteremia. Would cotninue for antibiotics for now pending the blood cultures being negative x48 hours, then will consider stopping. 2. Hx of infected permacath and MSSA bacteremia 3. Afib/flutter 4. ESRD on HD - renally dose antibiotics as appropriate Recs: - continue Zosyn - follow up blood cultures - if blood cultures remain negative expect to discontinue antibiotics. - pending c-scope and EGD when compliant with prep. Thank you for the consult, we will continue to follow. Sarah Kenyon MD [facility] ([facility]) M: [phone] O: [phone] F: [phone] Subjective Date of service: 01/06/19 Principal diagnosis: rectal bleeding Interval history: No acute change. Afebrile, normal WBC Objective - Exam Narrative Exam: Physical Exam: Constitutional: Alert, cooperative. No acute distress Head, Ears, Nose: Normocephalic, atraumatic. External ears, nose normal Eyes: Conjunctivae/corneas clear. No icterus. No ptosis. Neck: Supple, no meningeal signs Oral: dentition fair, no thrush Cardiovascular: S1, S2 normal. Respiratory: Good air entry, clear to auscultation bilaterally GI: Soft, non-tender; bowel sounds normal. No peritoneal signs. Musculoskeletal: No pedal edema, no cyanosis. Skin: No rash or abscess Hem/Lymphatic: No palpable cervical or supraclavicular nodes. No lymphangitis Psych: Mood ok. Affect normal Neurological: Awake, alert, oriented. No gross abnormality - Constitutional Vitals: Vital Signs Temp Pulse Resp BP Pulse Ox 99.1 F 104 H 20 137/81 92 01/06/19 07:51 01/06/19 10:00 01/06/19 07:51 01/06/19 07:51 01/06/19 07:51 Temperature -Last 24 Hours Temperature 99.1 F Temperature 97.6 F Temperature 98.2 F - Labs CBC & Chem 7: 01/06/19 04:05 01/06/19 04:05 Labs: Abnormal lab results 01/06/19 01/06/19 Range/Units 04:05 04:05 RBC 2.92 L (3.65-5.03) M/mm3 Hgb 8.3 L (11.8-15.2) gm/dl Hct 25.1 L (35.5-45.6) % RDW 18.0 H (13.2-15.2) % [place] % (Auto) 14.1 H (0.0-7.3) % [place] # 1.2 H (0.0-0.8) K/mm3 Chloride 94.0 L (98-107) mmol/L Creatinine 3.5 H (0.8-1.5) mg/dL
[2019-01-06] MEDS ORDERED: POLYETHYLENE GLYCOL/ELECT SOLN 4000 ML PO ONE (18:00)
[2019-01-06] MEDS: PANTOPRAZOLE 80 MG in SODIUM CHLORIDE 0.9% 100 ML IV SCH (18:24)
[2019-01-07] MEDS: PIPERACIL-TAZO 2.25 GM/50 ML 2.25 GM/50 ML BAG IV SCH ×2 (02:29→23:50)
[2019-01-07] MEDS: GABAPENTIN 100 MG CAP PO SCH ×3 (05:18→22:14)
[2019-01-07] MEDS: SEVELAMER CARBONATE 800 MG TAB PO SCH ×3 (07:30→17:00)
--- NOTE | 2019-01-07 10:27 | Progress Note ---
Assessment and Plan Cultures: 01/05/19 blood culture - no growth to date A/P: 73 yo M PMHx MSSA bacteremia and infected septic emboli (s/p 6 weeks cefazolin), HTN, afib/a flutter, ESRd on HD admitted with AMS 1. AMS - Unlikely to be infection related in the absence of other symptoms. He has been afebrile and has a normal white count. If his blood cultures remains negative would assume little risk for septic emboli for the brain at this point given fully treated bacteremia. Would stop antibiotics today and monitor as cultures are negative x48 hours and he has been afebrile with a normal white count. 2. Hx of infected permacath and MSSA bacteremia 3. Afib/flutter 4. ESRD on HD - renally dose antibiotics as appropriate Recs: - stop Zosyn - follow up blood cultures - pending c-scope and EGD when compliant with prep. Thank you for the consult, we will continue to follow. Sarah Kenyon MD [facility] ([facility]) M: [phone] O: [phone] F: [phone] Subjective Date of service: 01/07/19 Principal diagnosis: rectal bleeding Interval history: Afebrile, no acute changes. Normal white count. Objective - Exam Narrative Exam: Physical Exam: Constitutional: Alert, cooperative. No acute distress Head, Ears, Nose: Normocephalic, atraumatic. External ears, nose normal Eyes: Conjunctivae/corneas clear. No icterus. No ptosis. Neck: Supple, no meningeal signs Oral: dentition fair, no thrush Cardiovascular: S1, S2 normal. Respiratory: Good air entry, clear to auscultation bilaterally GI: Soft, non-tender; bowel sounds normal. No peritoneal signs. Musculoskeletal: No pedal edema, no cyanosis. Skin: No rash or abscess Hem/Lymphatic: No palpable cervical or supraclavicular nodes. No lymphangitis Psych: Mood ok. Affect normal Neurological: Awake, alert, oriented. No gross abnormality - Constitutional Vitals: Vital Signs Temp Pulse Resp BP Pulse Ox 97.6 F 84 18 134/75 97 01/07/19 08:12 01/07/19 08:12 01/07/19 08:12 01/07/19 08:12 01/07/19 08:12 Temperature -Last 24 Hours Temperature 97.6 F Temperature 98.3 F Temperature 98.6 F Temperature 99.2 F - Labs CBC & Chem 7: 01/06/19 04:05 01/06/19 04:05
[2019-01-07] MEDS ORDERED: SODIUM CHLORIDE*PRIMING MACHINE ONLY FOR DIALYSIS MC ONE (13:06)
[2019-01-07] MEDS: EPOETIN ALFA 10,000 UNIT/1 ML INJ IV SCH ×2 (14:19→23:49)
[2019-01-07] MEDS ORDERED: SODIUM CHLORIDE 0.9% 1000 ML 1,000 ML ONE (15:50)
[2019-01-07] MEDS ORDERED: LIDOCAINE MPF (2%) 20 MG/1 ML VIAL 5 ML ONE (16:00)
[2019-01-07] MEDS ORDERED: SODIUM CHLORIDE 0.9% 1000 ML 1,000 ML IV SCH (16:00)
[2019-01-07] MEDS ORDERED: PROPOFOL 200 MG/20 ML VIAL IV ONE ×2 (16:48)
--- NOTE | 2019-01-07 16:52 | Progress Note ---
Assessment and Plan - Patient Problems (1) ESRD (end stage renal disease) Current Visit: No Status: Chronic Plan to address problem: cont HD on TTS schedule (2) Hypertensive chronic kidney disease with stage 5 chronic kidney disease or end stage renal disease Current Visit: No Status: Acute Plan to address problem: monitor BP on current meds (3) Rectal bleed Current Visit: Yes Status: Acute Plan to address problem: check serial Hb, transfuse for Hb < 7, follow GI recommendations (4) Anemia in CKD (chronic kidney disease) Current Visit: No Status: Acute Qualifiers: Chronic kidney disease stage: stage 5, not on chronic dialysis Qualified Code(s): N18.5 - Chronic kidney disease, stage 5; D63.1 - Anemia in chronic kidney disease Plan to address problem: cont EPO with HD Subjective Date of service: 01/07/19 Principal diagnosis: rectal bleeding Interval history: Pt awake, alert, in no acute distress, tolerating HD well Objective - Vital Signs Vital signs: Vital Signs - 12hr 01/07/19 01/07/19 01/07/19 05:00 08:12 11:00 Temperature 97.6 F 98.3 F Pulse Rate 84 81 Pulse Rate [ 82 From Monitor] Respiratory 18 18 20 Rate Blood Pressure 134/75 160/81 O2 Sat by Pulse 97 Oximetry 01/07/19 01/07/19 01/07/19 11:15 11:30 11:45 Temperature Pulse Rate 82 82 88 Pulse Rate [ From Monitor] Respiratory Rate Blood Pressure 137/72 145/76 139/78 O2 Sat by Pulse Oximetry 01/07/19 01/07/19 01/07/19 12:00 12:15 12:30 Temperature Pulse Rate 83 75 85 Pulse Rate [ From Monitor] Respiratory Rate Blood Pressure 130/79 139/62 135/65 O2 Sat by Pulse Oximetry 01/07/19 01/07/19 01/07/19 12:45 13:00 13:15 Temperature Pulse Rate 71 80 80 Pulse Rate [ From Monitor] Respiratory Rate Blood Pressure 135/83 143/81 148/60 O2 Sat by Pulse Oximetry 01/07/19 01/07/19 01/07/19 13:27 13:30 13:45 Temperature Pulse Rate 78 78 Pulse Rate [ From Monitor] Respiratory 16 Rate Blood Pressure 147/81 144/84 O2 Sat by Pulse Oximetry 01/07/19 01/07/1919 14:00 14:15 14:30 Temperature 98.1 F Pulse Rate 84 73 73 Pulse Rate [ From Monitor] Respiratory 18 Rate Blood Pressure 146/78 140/56 134/77 O2 Sat by Pulse Oximetry 01/07/19 01/07/19 15:39 15:40 Temperature 98.2 F 98.2 F Pulse Rate 87 87 Pulse Rate [ From Monitor] Respiratory 12 12 Rate Blood Pressure 140/71 140/71 O2 Sat by Pulse 97 97 Oximetry - General Appearance General appearance: well-developed, well-nourished, appears stated age EENT: ATNC, PERRL, mucous membranes moist Neck: no JVD Respiratory: Present: Clear to Ascultation Cardiology: regular, S1S2 Gastrointestinal: normoactive bowel sounds Integumentary: no rash, other (no edema ) Neurologic: no focal deficit, alert and oriented x3, strength 5/5, CN 3-12 intact Psychiatric: mood/affect appropriate, cooperative - Lab 01/06/19 04:05 01/06/19 04:05 Most recent lab results Calcium 8.4 mg/dL (8.4-10.2) 01/06/19 04:05 Medications & Allergies - Medications Allergies/Adverse Reactions: Allergies No Known Allergies Allergy (Verified 08/27/18 16:19) Home Medications: Home Medications Medication Instructions Recorded Confirmed Last Taken Type Epoetin Jeramy 10,000 Unit [Procrit] 10,000 unit IV TUTHSA vial 12/19/18 01/05/19 Unknown Rx Gabapentin 100 mg PO Q8HR 30 Days #90 capsule 12/19/18 01/05/19 Unknown Rx Metoprolol [Lopressor TAB] 100 mg PO TID 30 Days #90 tablet 12/19/18 01/05/19 Unknown Rx Polyethylene Glycol 3350 [Miralax 17 gm PO QDAY 30 Days powd.pack 12/19/18 01/05/19 Unknown Rx 3350] Sevelamer Carbonate [Renvela] 2,400 mg PO AC 30 Days tablet 12/19/18 01/05/19 Unknown Rx amLODIPine 7.5 mg PO QDAY 30 Days #45 tablet 12/19/18 01/05/19 Unknown Rx oxyCODONE /ACETAMINOPHEN [Percocet 1 tab PO BID PRN #20 tablet 12/19/18 01/05/19 Unknown Rx 5/325 mg] AtorvaSTATin [Lipitor] 20 mg PO QHS 01/05/19 01/05/19 Unknown History cloNIDine [Catapres] 0.2 mg PO BID 01/05/19 01/05/19 Unknown History Active Medications: Generic Name Dose Route Start Last Admin Trade Name Freq PRN Reason Stop Dose Admin Acetaminophen 650 mg 01/05/19 00:52 Tylenol PO Q4H PRN Pain MILD(1-3)/Fever >100.5/NEIL Epoetin Jeramy 10,000 unit 01/05/19 18:00 01/07/19 14:19 Procrit IV 10,000 unit TUTHSA ISABELLA Administration Gabapentin 100 mg 01/05/19 06:00 01/07/19 05:18 Gabapentin PO Not Given Q8HR ISABELLA Pantoprazole Sodium 80 mg/ 100 mls @ 10 mls/hr 01/05/19 05:00 01/06/19 18:24 Sodium Chloride IV 8 mg/hr DIRECT ISABELLA 10 mls/hr Administration 8 MG/HR Sodium Chloride 100 mls @ 999 mls/hr 01/05/19 10:00 Nacl 0.9% IV SISSY PRN Hypotension Sodium Chloride 1,000 mls @ 50 mls/hr 01/07/19 16:00 Nacl 0.9% 1000 Ml IV DIRECT ISABELLA Ondansetron HCl 4 mg 01/05/19 00:52 Zofran IV Q8H PRN Nausea And Vomiting Sevelamer Carbonate 2,400 mg 01/05/19 07:30 01/07/19 11:45 Renvela PO Not Given AC ISABELLA Sodium Chloride 10 ml 01/05/19 10:00 01/07/19 10:23 Sodium Chloride Flush Syringe 10 Ml IV 10 ml BID ISABELLA Administration Sodium Chloride 10 ml 01/05/19 00:52 Sodium Chloride Flush Syringe 10 Ml IV PRN PRN LINE FLUSH
--- NOTE | 2019-01-07 17:22 | Operative Report ---
Operative Report Operative Report: DOS: 01/07/19 SURGEON: Niles Saunders MD COLONOSCOPY with biopsy REPORT PREOPERATIVE AND POSTOPERATIVE DIAGNOSIS: rectal bleeding DESCRIPTION OF PROCEDURE: The colonoscope was passed to the cecum as identified by the ileocecal valve and appendiceal orifice . Scope was carefully withdrawn. Retroflexion was performed in the rectum. At the end of procedure, the scope was cleaned using normal technique. Vital signs monitored continuously throughout. SEDATION: Provided by Anesthesiology Services. Quality of the prep was adequate in the left colon, limited in the right colon COMPLICATIONS: None. ESTIMATED BLOOD LOSS: limited FINDINGS: * Moderate amount of stool in the right colon, limiting views * Moderate diverticulosis of the whole colon * Internal and external hemorrhoids * Large clean based ulcer of the rectum. Not actively bleeding. Most likely stercoral colitis. Biopsies obtained with cold biopsy forceps RECOMMENDATIONS: * May start diet * Ensure avoid constipation, as suspect patient had severe constipation which caused stercoral colitis which caused the GI bleeding * The quality of the colon cleanse was not sufficient for ruling out medium or small polyps or flat lesions
[2019-01-07] MEDS: PANTOPRAZOLE 80 MG in SODIUM CHLORIDE 0.9% 100 ML IV SCH (18:07)
--- NOTE | 2019-01-07 20:39 | Progress Note ---
Assessment and Plan Assessment and plan: 73-year-old -[place] male with history of hypertension, A. fib/A flutter, ESRD on HD, chronic anemia, hyperparathyroidism, osteoarthritis, infected permacath, and MSSA bilateral pulmonary septic emboli who presents [facility] ED with c/o of AMS. Poor oral intake. Patient had anemia, received 1 unit of PRBC evaluated by GI and underwent colonoscopy today --Rectal bleeding; s/p endoscopy FINDINGS: * Moderate amount of stool in the right colon, limiting views * Moderate diverticulosis of the whole colon * Internal and external hemorrhoids * Large clean based ulcer of the rectum. Not actively bleeding. Most likely stercoral colitis. Biopsies obtained with cold biopsy forceps RECOMMENDATIONS: * May start diet * Ensure avoid constipation, as suspect patient had severe constipation which caused stercoral colitis which caused the GI bleeding * The quality of the colon cleanse was not sufficient for ruling out medium or small polyps or flat lesions --Acute metabolic encephalopathy CT head negative On empiric antibiotic IV Zosyn Supportive care --Failure to thrive Secondary to underlying disease process Nutrition consult, encourage increase oral intake --Severe malnutrition; nutrition supplements Nutrition consult --ESRD on HD:/ HD per schedule nephrology following --Anemia of chronic disease s/p 1 unit PRBC transfusion Monitor H&H and transfuse as needed --Excoriation to sacrum Wound care consult pending --Hx MSSA lateral pulmonary septic emboli CT Chest shows: Slight interval improvement in bilateral pulmonary septic emboli. New airspace disease scattered throughout both lungs. 2. Interval increase in bilateral pleural effusions and free fluid in the upper abdomen. empiric IV ABX, --General debility PT OT, rehabilitation --Hx A-fib/Aflutter Can continue current management --HTN; moderate control Continue current antihypertensives and as needed medications --DVT PPX; Heparin --Full code Monitor closely and adjust management as needed Plan of care reviewed with the patient, family member at the bedside And patient's nurse History Interval history: I've seen and evaluated this morning before going to the colonoscopy Patient is nothing by mouth status No new episodes of rectal bleeding Schedule for colonoscopy with cold preparation Patient has no new complaints Vital signs noted Patient had colonoscopy this afternoon Findings noted Hospitalist Physical - Constitutional Vitals: Temp Pulse Resp BP Pulse Ox 99.6 F 122 H 18 137/88 96 01/07/19 20:23 01/07/19 20:23 01/07/19 20:23 01/07/19 20:23 01/07/19 20:23 General appearance: Present: no acute distress, well-nourished - EENT Eyes: Present: PERRL, EOM intact - Neck Neck: Present: supple, normal ROM - Respiratory Respiratory effort: normal Respiratory: bilateral: diminished, negative: rales, rhonchi, wheezing - Cardiovascular Rhythm: regular Heart Sounds: Present: S1 & S2 - Extremities Extremities: no ischemia, No edema - Abdominal General gastrointestinal: soft, non-tender, non-distended, normal bowel sounds - Integumentary Integumentary: Present: clear, warm - Psychiatric Psychiatric: appropriate mood/affect, cooperative - Neurologic Neurologic: moves all extremities Results - Labs CBC & Chem 7: 01/06/19 04:05 01/06/19 04:05 Labs: Laboratory Last Values WBC 8.2 K/mm3 (4.5-11.0) 01/06/19 04:05 RBC 2.92 M/mm3 (3.65-5.03) L 01/06/19 04:05 Hgb 8.3 gm/dl (11.8-15.2) L 01/06/19 04:05 Hct 25.1 % (35.5-45.6) L 01/06/19 04:05 MCV 86 fl (84-94) 01/06/19 04:05 MCH 28 pg (28-32) 01/06/19 04:05 MCHC 33 % (32-34) 01/06/19 04:05 RDW 18.0 % (13.2-15.2) H 01/06/19 04:05 Plt Count 169 K/mm3 (140-440) 01/06/19 04:05 Lymph % (Auto) 26.6 % (13.4-35.0) 01/06/19 04:05 [place] % (Auto) 14.1 % (0.0-7.3) H 01/06/19 04:05 Eos % (Auto) 0.7 % (0.0-4.3) 01/06/19 04:05 Baso % (Auto) 0.2 % (0.0-1.8) 01/06/19 04:05 Lymph # 2.2 K/mm3 (1.2-5.4) 01/06/19 04:05 [place] # 1.2 K/mm3 (0.0-0.8) H 01/06/19 04:05 Eos # 0.1 K/mm3 (0.0-0.4) 01/06/19 04:05 Baso # 0.0 K/mm3 (0.0-0.1) 01/06/19 04:05 Seg Neutrophils % 58.4 % (40.0-70.0) 01/06/19 04:05 Seg Neutrophils # 4.8 K/mm3 (1.8-7.7) 01/06/19 04:05 PT 18.9 Sec. (12.2-14.9) H 01/05/19 04:14 INR 1.61 (0.87-1.13) H 01/05/19 04:14 APTT 36.4 Sec. (24.2-36.6) 01/05/19 04:14 VBG pH 7.387 (7.320-7.420) 01/04/19 18:57 Sodium 137 mmol/L (137-145) 01/06/19 04:05 Potassium 3.8 mmol/L (3.6-5.0) 01/06/19 04:05 Chloride 94.0 mmol/L (98-107) L 01/06/19 04:05 Carbon Dioxide 27 mmol/L (22-30) 01/06/19 04:05 Anion Gap 20 mmol/L 01/06/19 04:05 BUN 19 mg/dL (9-20) 01/06/19 04:05 Creatinine 3.5 mg/dL (0.8-1.5) H 01/06/19 04:05 Estimated GFR 21 ml/min 01/06/19 04:05 BUN/Creatinine Ratio 5 % 01/06/19 04:05 Glucose 81 mg/dL (75-100) 01/06/19 04:05 POC Glucose 124 (70-105) H 01/04/19 17:44 Calcium 8.4 mg/dL (8.4-10.2) 01/06/19 04:05 Total Bilirubin 0.50 mg/dL (0.1-1.2) 01/04/19 18:57 AST 30 units/L (5-40) 01/04/19 18:57 ALT < 5 units/L (7-56) L 01/04/19 18:57 Alkaline Phosphatase 100 units/L (35-129) 01/04/19 18:57 Ammonia 33.0 umol/L (25-60) 01/04/19 18:57 Total Creatine Kinase 103 units/L (55-170) 01/04/19 18:57 CK-MB (CK-2) 1.5 ng/mL (0.0-4.0) 01/04/19 18:57 CK-MB (CK-2) Rel Index 1.4 (0-4) 01/04/19 18:57 Troponin T 0.284 ng/mL (0.00-0.029) H* 01/04/19 22:47 Total Protein 8.3 g/dL (6.3-8.2) H 01/04/19 18:57 Albumin 2.7 g/dL (3.9-5) L 01/04/19 18:57 Albumin/Globulin Ratio 0.5 % 01/04/19 18:57 Salicylates < 0.3 mg/dL (2.8-20.0) L 01/04/19 18:57 Acetaminophen < 5.0 ug/mL (10.0-30.0) L 01/04/19 18:57 Plasma/Serum Alcohol < 0.01 % (0-0.07) 01/04/19 18:57 Hepatitis A IgM Ab Non-reactive (NonReactive) 01/05/19 11: Hep Bs Antigen Non-reactive (Negative) 01/05/19 11: Hep B Core IgM Ab Non-reactive (NonReactive) 01/05/19 11:19 Hepatitis C Antibody Non-reactive (NonReactive) 01/05/19 11: Blood Type O POSITIVE 01/05/19 04:14 Antibody Screen Negative 01/05/19 04:14 Crossmatch See Detail 01/05/19 04:14 Active Medications - Current Medications Current Medications: Generic Name Dose Route Start Last Admin Trade Name Freq PRN Reason Stop Dose Admin Acetaminophen 650 mg 01/05/19 00:52 Tylenol PO Q4H PRN Pain MILD(1-3)/Fever >100.5/NEIL Epoetin Jeramy 10,000 unit 01/05/19 18:00 01/07/19 14:19 Procrit IV 10,000 unit TUTHSA ISABELLA Administration Gabapentin 100 mg 01/05/19 06:00 01/07/19 14:00 Gabapentin PO Not Given Q8HR ISABELLA Pantoprazole Sodium 80 mg/ 100 mls @ 10 mls/hr 01/05/19 05:00 01/07/19 18:07 Sodium Chloride IV 8 mg/hr DIRECT ISABELLA 10 mls/hr Administration 8 MG/HR Sodium Chloride 100 mls @ 999 mls/hr 01/05/19 10:00 Nacl 0.9% IV SISSY PRN Hypotension Sodium Chloride 1,000 mls @ 50 mls/hr 01/07/19 16:00 Nacl 0.9% 1000 Ml IV DIRECT ISABELLA Ondansetron HCl 4 mg 01/05/19 00:52 Zofran IV Q8H PRN Nausea And Vomiting Sevelamer Carbonate 2,400 mg 01/05/19 07:30 01/07/19 11:45 Renvela PO Not Given AC ISABELLA Sodium Chloride 10 ml 01/05/19 10:00 01/07/19 10:23 Sodium Chloride Flush Syringe 10 Ml IV 10 ml BID ISABELLA Administration Sodium Chloride 10 ml 01/05/19 00:52 Sodium Chloride Flush Syringe 10 Ml IV PRN PRN LINE FLUSH Nutrition/Malnutrition Assess - Dietary Evaluation Nutrition/Malnutrition Findings: Nutrition Notes Start: 01/05/19 10:28 Freq: Status: Active Protocol: Document 01/07/19 09:39 CC (Rec: 01/07/19 09:45 CC [id number]) Co-Sign 01/07/19 09:39 LM Nutrition Notes Initial or Follow up Brief Note Current Diagnosis CKD (stage V CKD),Hypertension Other Pertinent Diagnosis AMS, ESRD (HD T, Th, Sat) Current Diet npo Labs/Tests Creat 3.5 Pertinent Medications reviewed Height 5 ft 6 in Weight 67.3 kg Usual Body Weight 70.9 kg [place] Body Weight (kg) 64.54 BMI 23.9 Weight change and time frame 12.5%/ 5 days Subjective/Other Information f/u for diet advancement. Diet not advanced d/t EGD procedure today Percent of energy/protein needs met: 0%/0% Burn Absent Trauma Absent Nutrition Intervention Change Diet Order: renal diet when medically feasible Goal #1 Advance diet when medically feasible Goal #2 Meet at least 80% of energy and protein needs via PO when diet advances Anticipated Discharge Needs: renal diet Follow-Up By: 01/08/19 Additional Comments F/U diet advancement, PO intake
[2019-01-08] MEDS: PANTOPRAZOLE 80 MG in SODIUM CHLORIDE 0.9% 100 ML IV SCH (06:17)
[2019-01-08] MEDS: GABAPENTIN 100 MG CAP PO SCH ×2 (06:18→14:44)
[2019-01-08] MEDS: SEVELAMER CARBONATE 800 MG TAB PO SCH ×2 (08:25→11:09)
--- NOTE | 2019-01-08 08:32 | Anesthesia Consultation ---
Anesthesia Consult and Med Hx Date of service: 01/08/19 - Airway Anesthetic Teeth Evaluation: Good ROM Head & Neck: Adequate Mental/Hyoid Distance: Adequate Mallampati Class: Class II Intubation Access Assessment: Good - Pulmonary Exam CTA: Yes - Cardiac Exam Cardiac Exam: RRR - Pre-Operative Health Status ASA Pre-Surgery Classification: ASA3 Proposed Anesthetic Plan: General - Pulmonary Hx Smoking: No Hx Respiratory Symptoms: Yes (bronchitis s/p abx 07/2018) SOB: No Hx Sleep Apnea: No - Cardiovascular System Hx Hypertension: Yes Hx Heart Attack/AMI: No Hx Percutaneous Transluminal Coronary Angioplasty (PTCA): No Hx Cardia Arrhythmia: No Hx Heart Murmur: Yes - Central Nervous System CVA: No Hx Psychiatric Problems: No - Gastrointestinal Hx Gastroesophageal Reflux Disease: No - Endocrine Hx Renal Disease: Yes (HD Tues,Th,Sat) Hx End Stage Renal Disease: Yes Hx Liver Disease: No Hx Insulin Dependent Diabetes: No Hx Non-Insulin Dependent Diabetes: No Hx Thyroid Disease: No - Hematic Hx Anemia: Yes - Other Systems Hx Cancer: No Hx Obesity: No
--- NOTE | 2019-01-08 08:33 | Anesthesia Day of Surgery ---
Anesthesia Day of Surgery - Day of Surgery Patient Examined: Yes Patient H&P Reviewed: Yes Patient is NPO: Yes
--- NOTE | 2019-01-08 09:24 | Progress Note ---
Assessment and Plan Cultures: 01/05/19 blood culture - no growth to date A/P: 73 yo M PMHx MSSA bacteremia and infected septic emboli (s/p 6 weeks cefazolin), HTN, afib/a flutter, ESRd on HD admitted with AMS 1. AMS - Unlikely to be infection related in the absence of other symptoms. He has been afebrile and has a normal white count. If his blood cultures remains negative would assume little risk for septic emboli for the brain at this point given fully treated bacteremia. Would stop antibiotics today and monitor as cultures are negative x48 hours and he has been afebrile with a normal white count. 2. Hx of infected permacath and MSSA bacteremia 3. Afib/flutter 4. ESRD on HD - renally dose antibiotics as appropriate Recs: - doing well off antibiotics. - pending c-scope and EGD when compliant with prep. Thank you for the consult, we will sign off. Please call with any questions. Sarah Kenyon MD [facility] ([facility]) M: [phone] O: [phone] F: [phone] Subjective Date of service: 01/08/19 Principal diagnosis: rectal bleeding Interval history: Afebrile, no acute changes. Normal white count. Objective - Exam Narrative Exam: Physical Exam: Constitutional: Alert, cooperative. No acute distress Head, Ears, Nose: Normocephalic, atraumatic. External ears, nose normal Eyes: Conjunctivae/corneas clear. No icterus. No ptosis. Neck: Supple, no meningeal signs Oral: dentition fair, no thrush Cardiovascular: S1, S2 normal. Respiratory: Good air entry, clear to auscultation bilaterally GI: Soft, non-tender; bowel sounds normal. No peritoneal signs. Musculoskeletal: No pedal edema, no cyanosis. Skin: No rash or abscess Hem/Lymphatic: No palpable cervical or supraclavicular nodes. No lymphangitis Psych: Mood ok. Affect normal Neurological: Awake, alert, oriented. No gross abnormality - Constitutional Vitals: Vital Signs Temp Pulse Resp BP Pulse Ox 99.3 F 91 H 18 147/73 99 01/08/19 07:50 01/08/19 07:50 01/08/19 07:50 01/08/19 07:50 01/08/19 07:50 Temperature -Last 24 Hours Temperature 99.3 F Temperature 97.8 F Temperature 99.6 F Temperature 98.2 F Temperature 98.2 F Temperature 98.2 F Temperature 98.1 F Temperature 98.3 F - Labs CBC & Chem 7: 01/06/19 04:05 01/06/19 04:05
--- NOTE | 2019-01-08 09:46 | Gastroenterology Progress Note ---
<RENETTA RAMIREZ - Last Filed: 01/08/19 09:48> Assessment and Plan 1.hematochezia 2.anemia-chronic -H/H 8.3/25.1-trending up -continue to monitor H/H and transfuse as needed -bleeding scan 01/05 negative for active bleeding -no active signs of bleeding overnight or this am -s/p colonoscopy yesterday (01/07/19) that showed: * Moderate amount of stool in the right colon, limiting views * Moderate diverticulosis of the whole colon * Internal and external hemorrhoids * Large clean based ulcer of the rectum. Not actively bleeding. Most likely stercoral colitis. -Bx results pending-f/u in clinic -clinically, patient is stable. Denies abd pain or N/v. Tolerating diet. -start on daily bowel regimen of Miralax BID for constipation -continue supportive care -patient okay to be d/c per GI standpoint on Miralax with f/u in clinic in ~2 weeks -will sign off, please call if needed Subjective Date of service: 01/08/19 Principal diagnosis: rectal bleeding Interval history: No acute distress or active signs of bleeding overnight or this am. Denies abd pain or N/v. Tolerating diet. Objective - Constitutional Vitals: Temp Pulse Resp BP Pulse Ox 99.3 F 91 H 18 147/73 99 01/08/19 07:50 01/08/19 07:50 01/08/19 07:50 01/08/19 07:50 01/08/19 07:50 General appearance: no acute distress - EENT Eyes: PERRL, EOM intact ENT: hearing intact - Cardiovascular Rhythm: regular - Gastrointestinal General gastrointestinal: Present: soft, non-tender, non-distended, normal bowel sounds - Integumentary Integumentary: Present: warm, dry - Labs CBC & Chem 7: 01/06/19 04:05 01/06/19 04:05 <LARRY BRUCE - Last Filed: 01/08/19 11:42> Assessment and Plan Patient seen and examined. I have reviewed the advanced practitioner's evalu ation, assessment, and plan, and agree with them. I note the following additions: f/u biopsy results (may do as outpatient) and ensure no more constipation by starting daily miralax and monitoring [facility] Hgb stable, will sign off, please call back if needed - Patient Problems (1) Rectal bleed Current Visit: Yes Status: Acute (2) Rectal bleed Current Visit: Yes Status: Acute (3) Anemia Current Visit: No Status: Acute Objective - Constitutional Vitals: Temp Pulse Resp BP Pulse Ox 99.3 F 92 H 18 147/73 99 01/08/19 07:50 01/08/19 10:00 01/08/19 10:00 01/08/19 07:50 01/08/19 07:50 - Labs CBC & Chem 7: 01/08/19 09:34 01/06/19 04:05 Labs: Laboratory Results - last 24 hr 01/08/19 09:34 Hgb 9.5 L Hct 28.6 L
[2019-01-08 10:10] LABS: Hematocrit 28.6 % (35.5-45.6); Hemoglobin 9.5 gm/dl (11.8-15.2)
[2019-01-08] MEDS ORDERED: POLYETHYLENE GLYCOL 3350 17 GM POWDER PO SCH (10:30)
[2019-01-08] MEDS ORDERED: PANTOPRAZOLE 40 MG TAB PO SCH (10:30)
--- NOTE | 2019-01-08 12:05 | Discharge Summary ---
Providers - Providers Date of Admission: 01/05/19 00:52 Date of discharge: 01/08/19 Attending physician: BLANCA TRAN 01/05/19 Consult to Case Management [CONS] Routine Services Needed at Discharge: Home Health Services Notified:: SIMON 01/05/19 00:52 Consult to Physician [CONS] Routine Comment: called answ. seerv. / portillo Consulting Provider: DRAKE LYLES Physician Instructions: Reason For Exam: hx bilat pul septic emboli, c/o AMS 01/05/19 00:58 Consult to Physician [CONS] Routine Comment: called answ. serv./ portillo Consulting Provider: JAJA CHAVIS Physician Instructions: Reason For Exam: ESRD on HD T//S 01/05/19 00:59 Consult to Wound/ET Nurse [CONS] Routine Reason For Exam: wound eval 01/05/19 01:04 Occupational Therapy Evaluate and Treat [CONS] Routine Comment: Reason For Exam: debility Physical Therapy Evaluation and Treat [CONS] Routine Comment: Reason For Exam: debility 01/05/19 04:01 Consult to Physician [CONS] Routine Comment: AGGIE Small spoke with Dr. Hicks @ 0420 Consulting Provider: NANDA ARIAS Physician Instructions: Reason For Exam: Lower GI Bleed Primary care physician: [facility] [employer] Hospitalization Reason for admission: AMS, Severe anemia Condition: Stable Pertinent studies: CT Head CT Chest Bleeding scan Procedures: EGD,Colonoscopy Hospital course: 73-year-old -Australian male with history of hypertension, A. fib/A flutter, ESRD on HD, chronic anemia, hyperparathyroidism, osteoarthritis, infected permacath, and MSSA bilateral pulmonary septic emboli who presents [facility] with c/o of AMS. Poor oral intake. Patient had anemia, received 1 unit of PRBC evaluated by GI and underwent s/p colonoscopy,Patient's symptoms improved. Stable at discharge Discharge Diagnosis: --Rectal bleeding; s/p endoscopy FINDINGS: * Moderate amount of stool in the right colon, limiting views * Moderate diverticulosis of the whole colon * Internal and external hemorrhoids * Large clean based ulcer of the rectum. Not actively bleeding. Most likely stercoral colitis. Biopsies obtained with cold biopsy forceps RECOMMENDATIONS: * May start diet * Ensure avoid constipation, as suspect patient had severe constipation which caused stercoral colitis which caused the GI bleeding * The quality of the colon cleanse was not sufficient for ruling out medium or small polyps or flat lesions --Acute metabolic encephalopathy CT head negative On empiric antibiotic IV Zosyn Supportive care --Failure to thrive Secondary to underlying disease process Nutrition consult, encourage increase oral intake --Severe malnutrition; nutrition supplements Nutrition consult --ESRD on HD:/ HD per schedule nephrology following --Anemia of chronic disease s/p 1 unit PRBC transfusion Monitor H&H and transfuse as needed --Excoriation to sacrum Wound care consult pending --Hx MSSA lateral pulmonary septic emboli CT Chest shows: Slight interval improvement in bilateral pulmonary septic emboli. New airspace disease scattered throughout both lungs. 2. Interval increase in bilateral pleural effusions and free fluid in the upper abdomen. empiric IV ABX, --General debility PT OT, rehabilitation --Hx A-fib/Aflutter Can continue current management --HTN; moderate control Continue current antihypertensives and as needed medications Stable at discharge. Disposition: DC/[place]-06 HOME UNDER HOME [facility] Time spent for discharge: 32 min Core Measure Documentation - Palliative Care Palliative Care/ Comfort Measures: Not Applicable - Core Measures Any of the following diagnoses?: none Exam - Constitutional Vitals: Temp Pulse Resp BP Pulse Ox 99.3 F 92 H 18 147/73 99 01/08/19 07:50 01/08/19 10:00 01/08/19 10:00 01/08/19 07:50 01/08/19 07:50 General appearance: Present: no acute distress, well-nourished - EENT Eyes: Present: PERRL, EOM intact - Neck Neck: Present: supple, normal ROM - Respiratory Respiratory effort: normal Respiratory: bilateral: diminished, negative: rales, rhonchi, wheezing - Cardiovascular Rhythm: regular Heart Sounds: Present: S1 & S2 - Extremities Extremities: no ischemia, No edema - Abdominal General gastrointestinal: Present: soft, non-tender, non-distended - Integumentary Integumentary: Present: clear, warm - Musculoskeletal Musculoskeletal: strength equal bilaterally - Psychiatric Psychiatric: appropriate mood/affect, cooperative - Neurologic Neurologic: moves all extremities Plan Activity: advance as tolerated, fall precautions Diet: renal Additional Instructions: Fall precautions. Patient's blood pressures are in the low range. Stop clonidine, metoprolol. With primary care physician for further instructions Follow up with: BETTY DE LEÓN MD [Primary Care Provider] - 3-5 Days LARRY BRUCE MD [Staff Physician] - 7 Days JAJA CHAVIS MD [Staff Physician] - 7 Days Prescriptions: Pantoprazole [Protonix TAB] 40 mg PO DAILY #30 tablet
--- NOTE | 2019-01-08 12:38 | Progress Note ---
Assessment and Plan - Patient Problems (1) ESRD (end stage renal disease) Current Visit: No Status: Chronic Plan to address problem: cont HD on TTS schedule. stable for discharge from renal stand point (2) Hypertensive chronic kidney disease with stage 5 chronic kidney disease or end stage renal disease Current Visit: No Status: Acute Plan to address problem: monitor BP on current meds (3) Rectal bleed Current Visit: Yes Status: Acute Plan to address problem: hb stable at > 9, s/p colonoscopy, follow GI recommendations (4) Anemia in CKD (chronic kidney disease) Current Visit: No Status: Acute Qualifiers: Chronic kidney disease stage: stage 5, not on chronic dialysis Qualified Code(s): N18.5 - Chronic kidney disease, stage 5; D63.1 - Anemia in chronic kidney disease Plan to address problem: cont EPO with HD Subjective Date of service: 01/08/19 Principal diagnosis: rectal bleeding Interval history: Pt awake, alert, in no acute distress, s/p colonoscopy without active bleeding Objective - Vital Signs Vital signs: Vital Signs - 12hr 01/08/19 01/08/19 01/08/19 02:26 07:50 10:00 Temperature 97.8 F 99.3 F Pulse Rate 99 H 91 H 92 H Pulse Rate [ 92 H From Monitor] Respiratory 18 18 18 Rate Blood Pressure 134/61 147/73 O2 Sat by Pulse 99 99 Oximetry - General Appearance General appearance: well-developed, well-nourished, appears stated age EENT: ATNC, PERRL, mucous membranes moist Neck: no JVD Respiratory: Present: Clear to Ascultation Cardiology: regular, S1S2 Gastrointestinal: normoactive bowel sounds Integumentary: no rash, other (no edema ) Neurologic: no focal deficit, alert and oriented x3, strength 5/5, CN 3-12 intact Psychiatric: mood/affect appropriate, cooperative - Lab 01/08/19 09:34 01/06/19 04:05 Most recent lab results Calcium 8.4 mg/dL (8.4-10.2) 01/06/19 04:05 Medications & Allergies - Medications Allergies/Adverse Reactions: Allergies No Known Allergies Allergy (Verified 08/27/18 16:19) Home Medications: Home Medications Medication Instructions Recorded Confirmed Last Taken Type Epoetin Jeramy 10,000 Unit [Procrit] 10,000 unit IV TUTHSA vial 12/19/18 01/05/19 Unknown Rx Gabapentin 100 mg PO Q8HR 30 Days #90 capsule 12/19/18 01/05/19 Unknown Rx Polyethylene Glycol 3350 [Miralax 17 gm PO QDAY 30 Days powd.pack 12/19/18 01/05/19 Unknown Rx 3350] Sevelamer Carbonate [Renvela] 2,400 mg PO AC 30 Days tablet 12/19/18 01/05/19 Unknown Rx amLODIPine 7.5 mg PO QDAY 30 Days #45 tablet 12/19/18 01/05/19 Unknown Rx oxyCODONE /ACETAMINOPHEN [Percocet 1 tab PO BID PRN #20 tablet 12/19/18 01/05/19 Unknown Rx 5/325 mg] AtorvaSTATin [Lipitor] 20 mg PO QHS 01/05/19 01/05/19 Unknown History Pantoprazole [Protonix TAB] 40 mg PO DAILY #30 tablet 01/08/19 Unknown Rx Active Medications: Generic Name Dose Route Start Last Admin Trade Name Kurtq PRN Reason Stop Dose Admin Acetaminophen 650 mg 01/05/19 00:52 Tylenol PO Q4H PRN Pain MILD(1-3)/Fever >100.5/NEIL Epoetin Jeramy 10,000 unit 01/05/19 18:00 01/07/19 23:49 Procrit IV Not Given [facility] Gabapentin 100 mg 01/05/19 06:00 01/08/19 06:18 Gabapentin PO 100 mg Q8HR ISABELLA Administration Sodium Chloride 100 mls @ 999 mls/hr 01/05/19 10:00 Nacl 0.9% IV SISSY PRN Hypotension Sodium Chloride 1,000 mls @ 50 mls/hr 01/07/19 16:00 Nacl 0.9% 1000 Ml IV DIRECT ISABELLA Ondansetron HCl 4 mg 01/05/19 00:52 Zofran IV Q8H PRN Nausea And Vomiting Pantoprazole Sodium 40 mg 01/08/19 10:30 01/08/19 11:09 Protonix PO 40 mg DAILY ISABELLA Administration Polyethylene Glycol 17 gm 01/08/19 10:30 01/08/19 11:09 Miralax 3350 PO 17 gm BID ISABELLA Administration Sevelamer Carbonate 2,400 mg 01/05/19 07:30 01/08/19 11:09 Renvela PO 2,400 mg AC ISABELLA Administration Sodium Chloride 10 ml 01/05/19 10:00 01/08/19 09:27 Sodium Chloride Flush Syringe 10 Ml IV 10 ml BID ISABELLA Administration Sodium Chloride 10 ml 01/05/19 00:52 Sodium Chloride Flush Syringe 10 Ml IV PRN PRN LINE FLUSH
[2019-01-08 13:40] VITALS: BP 140/85
[2019-01-08] MEDS ORDERED: PANTOPRAZOLE 40 MG INJ IV SCH (22:00)
[2019-01-09] MEDS ORDERED: PANTOPRAZOLE 40 MG TAB PO SCH (22:00)
== END 2019-01-08 15:25 | disposition home health service (06) | DRG 393 ==
LOC: ED 17:00 → 2B-ACE 01-05 00:52
PROVIDERS: ADMIT Internal Medicine; ATTEND Internal Medicine
PROC: 30233N1 Transfusion of Nonautologous Red Blood Cells into Peripheral Vein, Percutaneous Approach (ICD-10-PCS; 2019-01-05)
PROC: 3E0234Z Introduction of Serum, Toxoid and Vaccine into Muscle, Percutaneous Approach (ICD-10-PCS; 2019-01-05)
PROC: 5A1D70Z Performance of Urinary Filtration, Intermittent, Less than 6 Hours Per Day (ICD-10-PCS; 2019-01-05)
PROC: 0DBP8ZX Excision of Rectum, Via Natural or Artificial Opening Endoscopic, Diagnostic (ICD-10-PCS; principal; 2019-01-07)
PROC: 5A1D70Z Performance of Urinary Filtration, Intermittent, Less than 6 Hours Per Day (ICD-10-PCS; 2019-01-07)
DX: K64.8 Other hemorrhoids (principal); G93.41 Metabolic encephalopathy; N18.6 End stage renal disease; E43 Unspecified severe protein-calorie malnutrition; I12.0 Hypertensive chronic kidney disease with stage 5 chronic kidney disease or end stage renal disease; I48.92 Unspecified atrial flutter; K52.89 Other specified noninfective gastroenteritis and colitis; D63.1 Anemia in chronic kidney disease; I48.91 Unspecified atrial fibrillation; E21.3 Hyperparathyroidism, unspecified; K57.90 Diverticulosis of intestine, part unspecified, without perforation or abscess without bleeding; M19.90 Unspecified osteoarthritis, unspecified site; S30.810A Abrasion of lower back and pelvis, initial encounter; Y93.89 Activity, other specified; Y92.89 Other specified places as the place of occurrence of the external cause; Z68.24 Body mass index [BMI] 24.0-24.9, adult; Z99.2 Dependence on renal dialysis; Z79.899 Other long term (current) drug therapy; Y99.8 Other external cause status; Z23 Encounter for immunization
CPT/HCPCS: 36415; 36430; 70450; 71045; 71250; 78278; 80048; 80053; 80074; 80320; 82140; 82270; 82550; 82553; 82805; 82962; 84484; 85014; 85018; 85025; 85610; 85730; 86850; 86900; 86901; 86920; 87040; 87116; 88305; 90686; 90732; 93005; 93010; G0378; A9560; C9113; G0480; J0885; J1642; J2543; J2704; J7030; P9016

== ENCOUNTER 2019-02-15 09:30 | Inpatient (IN) | payer MEDICARE ==
[2019-02-15] MEDS ORDERED: SODIUM CHLORIDE 0.9% 500 ML 500 ML IV ONE (09:44)
[2019-02-15 10:02] LABS: Basophils # (Auto) 0.1 K/mm3 (0.0-0.1); Basophils % (Auto) 0.7 % (0.0-1.8); Eosinophils % (Auto) 0.1 % (0.0-4.3); Hematocrit 29.3 % (35.5-45.6); Hemoglobin 9.5 gm/dl (11.8-15.2); Lymphocytes # (Auto) 1.9 K/mm3 (1.2-5.4); Mean Corpuscular HGB Conc 32 % (32-34); Mean Corpuscular Volume 83 fl (84-94); Monocytes % (Auto) 11.5 % (0.0-7.3); Platelet Count 141 K/mm3 (140-440); Red Blood Count 3.54 M/mm3 (3.65-5.03); Red Cell Distribution Width 18.3 % (13.2-15.2)
[2019-02-15 10:13] LABS: INR 1.42 (0.87-1.13)
--- NOTE | 2019-02-15 10:13 | XRay Report ---
CHEST 1 VIEW 02/15/2019 9:53 AM INDICATION / CLINICAL INFORMATION: Cough, body aches, possible sepsis. COMPARISON: One view of the chest from 01/04/2019. FINDINGS: SUPPORT DEVICES: Stable left internal jugular vein Port-A-Cath. HEART / MEDIASTINUM: Stable. LUNGS / PLEURA: Low lung volumes are noted with bibasilar opacities, left greater than right, and sma ll bilateral pleural effusions. No pneumothorax. ADDITIONAL FINDINGS: No significant additional findings. IMPRESSION: Suspected bilateral pneumonia with small pleural effusions. Signer Name: Leobardo Ludwig MD Signed: 02/15/2019 10:09 AM Workstation Name: [id number]
[2019-02-15 10:26] LABS: Albumin 2.9 g/dL (3.9-5); Calcium 9.9 mg/dL (8.4-10.2)
--- NOTE | 2019-02-15 10:57 | Emergency Department Report ---
ED General Adult HPI - General Chief complaint: Upper Respiratory Infection Stated complaint: LOWER BACK PAIN/HANDS Time Seen by Provider: 02/15/19 10:06 Source: patient Mode of arrival: Wheelchair Limitations: No Limitations - History of Present Illness Initial comments: This is a 73-year-old man who is an exceptionally poor historian and or suffering from some free of dementia. He presents to the emergency department complaining of pain in various apparently unrelated locations to include his right hand left shoulder and legs. He doesn't report any recent fever. He does not report headache or acute confusion. He does not report vertigo or focal neurological change. Although he is taking gabapentin. He states that he is not suffered from chronic pain. He states the symptoms of extremity pain has been present for the last 3 days. He does have stated to be aware of his hypoxia, which was discovered on pulse oximetry in the 80s on room air. He does not complain of shortness of breath or productive cough. He states he has some occasional cough only. Patient has a history of end-stage renal failure on dialysis. Apparently he had an infected Vas-Cath which caused septic emboli during his last hospitalization. He is not on home O2. Last Discharge Summary: Hospital course: 73-year-old -Guyanese male with history of hypertension, A. fib/A flutter, ESRD on HD, chronic anemia, hyperparathyroidism, osteoarthritis, infected permacath, and MSSA bilateral pulmonary septic emboli who presents [facility] with c/o of AMS. Poor oral intake. Patient had anemia, received 1 unit of PRBC evaluated by GI and underwent s/p colonoscopy,Patient's symptoms improved. Stable at discharge Discharge Diagnosis: --Rectal bleeding; s/p endoscopy FINDINGS: Moderate amount of stool in the right colon, limiting views Moderate diverticulosis of the whole colon Internal and external hemorrhoids Large clean based ulcer of the rectum. Not actively bleeding. Most likely stercoral colitis. Biopsies obtained with cold biopsy forceps RECOMMENDATIONS: May start diet Ensure avoid constipation, as suspect patient had severe constipation which caused stercoral colitis which caused the GI bleeding The quality of the colon cleanse was not sufficient for ruling out medium or small polyps or flat lesions --Acute metabolic encephalopathy CT head negative On empiric antibiotic IV Zosyn Supportive care --Failure to thrive Secondary to underlying disease process Nutrition consult, encourage increase oral intake --Severe malnutrition; nutrition supplements Nutrition consult --ESRD on HD:/ HD per schedule nephrology following --Anemia of chronic disease s/p 1 unit PRBC transfusion Monitor H&H and transfuse as needed --Excoriation to sacrum Wound care consult pending --Hx MSSA lateral pulmonary septic emboli CT Chest shows: Slight interval improvement in bilateral pulmonary septic emboli. New airspace disease scattered throughout both lungs. 2. Interval increase in bilateral pleural effusions and free fluid in the upper abdomen. empiric IV ABX, --General debility PT OT, rehabilitation --Hx A-fib/Aflutter Can continue current management --HTN; moderate control Continue current antihypertensives and as needed medications -: days(s) Location: left, right, upper extremity, lower extremity Improves with: none Worsens with: none Associated Symptoms: denies other symptoms - Related Data Home Medications Medication Instructions Recorded Confirmed Last Taken AtorvaSTATin [Lipitor] 20 mg PO QHS 01/05/19 01/05/19 Unknown Previous Rx's Medication Instructions Recorded Last Taken Type Epoetin Jeramy 10,000 Unit [Procrit] 10,000 unit IV TUTHSA vial 12/19/18 Unknown Rx Gabapentin 100 mg PO Q8HR 30 Days #90 capsule 12/19/18 Unknown Rx Polyethylene Glycol 3350 [Miralax 17 gm PO QDAY 30 Days powd.pack 12/19/18 Unknown Rx 3350] Sevelamer Carbonate [Renvela] 2,400 mg PO AC 30 Days tablet 12/19/18 Unknown Rx amLODIPine 7.5 mg PO QDAY 30 Days #45 tablet 12/19/18 Unknown Rx oxyCODONE /ACETAMINOPHEN [Percocet 1 tab PO BID PRN #20 tablet 12/19/18 Unknown Rx 5/325 mg] Pantoprazole [Protonix TAB] 40 mg PO DAILY #30 tablet 01/08/19 Unknown Rx Allergies Allergy/AdvReac Type Severity Reaction Status Date / Time No Known Allergies Allergy Verified 08/27/18 16:19 ED Review of Systems ROS: Stated complaint: LOWER BACK PAIN/HANDS Other details as noted in HPI Constitutional: denies: chills, fever Eyes: denies: eye pain, eye discharge, vision change ENT: denies: ear pain, throat pain Respiratory: denies: cough, shortness of breath, wheezing Cardiovascular: denies: chest pain, palpitations Endocrine: no symptoms reported Gastrointestinal: denies: abdominal pain, nausea, diarrhea Genitourinary: denies: urgency, dysuria Musculoskeletal: denies: back pain, joint swelling, arthralgia Skin: denies: rash, lesions Neurological: denies: headache, weakness, paresthesias Psychiatric: denies: anxiety, depression Hematological/Lymphatic: denies: easy bleeding, easy bruising ED Past Medical Hx - Past Medical History Previous Medical History?: Yes Hx Hypertension: Yes Hx Heart Attack/AMI: No Hx Liver Disease: No Hx Renal Disease: Yes (HD Tues,Thurs,Sat) Hx Arthritis: Yes ("Different days, different joints") Additional medical history: ESRD, Hematuria, Proteinuria, Noncompliant with medical treatment, hypokalemis, hyperparathyroidism, pulmonary sepsis, - Surgical History Past Surgical History?: Yes Additional Surgical History: hemmoroidectomy. Right chest Vas-Cath - Social History Smoking Status: Never Smoker Substance Use Type: None - Medications Home Medications: Home Medications Medication Instructions Recorded Confirmed Last Taken Type Epoetin Jeramy 10,000 Unit [Procrit] 10,000 unit IV TUTHSA vial 12/19/18 01/05/19 Unknown Rx Gabapentin 100 mg PO Q8HR 30 Days #90 capsule 12/19/18 01/05/19 Unknown Rx Polyethylene Glycol 3350 [Miralax 17 gm PO QDAY 30 Days powd.pack 12/19/18 01/05/19 Unknown Rx 3350] Sevelamer Carbonate [Renvela] 2,400 mg PO AC 30 Days tablet 12/19/18 01/05/19 Unknown Rx amLODIPine 7.5 mg PO QDAY 30 Days #45 tablet 12/19/18 01/05/19 Unknown Rx oxyCODONE /ACETAMINOPHEN [Percocet 1 tab PO BID PRN #20 tablet 12/19/18 01/05/19 Unknown Rx 5/325 mg] AtorvaSTATin [Lipitor] 20 mg PO QHS 01/05/19 01/05/19 Unknown History Pantoprazole [Protonix TAB] 40 mg PO DAILY #30 tablet 01/08/19 Unknown Rx ED Physical Exam - General Limitations: No Limitations General appearance: alert, in no apparent distress - Head Head exam: Present: atraumatic, normocephalic - Eye Eye exam: Present: normal appearance. Absent: scleral icterus - ENT ENT exam: Present: mucous membranes moist - Neck Neck exam: Present: normal inspection. Absent: tenderness, meningismus - Respiratory Respiratory exam: Present: normal lung sounds bilaterally, other (vascath right chest, good hygiene). Absent: respiratory distress - Cardiovascular Cardiovascular Exam: Present: regular rate, normal rhythm. Absent: systolic murmur, diastolic murmur, rubs, gallop - GI/Abdominal GI/Abdominal exam: Present: soft, normal bowel sounds. Absent: distended, tenderness, guarding, rebound, rigid - Rectal Rectal exam: Present: deferred - Extremities Exam Extremities exam: Present: normal inspection - Back Exam Back exam: Present: normal inspection - Neurological Exam Neurological exam: Present: alert, oriented X3, CN II-XII intact. Absent: motor sensory deficit - Psychiatric Psychiatric exam: Present: normal affect, normal mood - Skin Skin exam: Present: warm, dry, intact, normal color. Absent: rash ED Course Vital Signs 02/15/19 02/15/19 02/15/19 09:42 10:02 11:00 Temperature 98.5 F 99.2 F Pulse Rate 104 H 104 H 106 H Respiratory 22 16 16 Rate Blood Pressure 95/59 Blood Pressure 118/67 93/56 [Right] O2 Sat by Pulse 87 96 96 Oximetry 02/15/19 02/15/19 12:00 13:00 Temperature Pulse Rate 95 H 80 Respiratory 16 16 Rate Blood Pressure Blood Pressure 96/52 115/80 [Right] O2 Sat by Pulse 100 100 Oximetry - Reevaluation(s) Reevaluation #1: Patient was found to have multiple lesions consistent septic emboli. I believe some are new since his prior admission. He is hypoxic. He will be admitted to the hospitalist service for further care and evaluation. I discussed this case with Dr. Arana. We have initiated vancomycin. 02/15/19 14:08 ED Medical Decision Making - Lab Data Result diagrams: 02/15/19 09:47 02/15/19 09:47 Critical care attestation.: If time is entered above; I have spent that time in minutes in the direct care of this critically ill patient, excluding procedure time. ED Disposition Clinical Impression: End stage renal disease on dialysis, Hypoxia Septic pulmonary embolism Qualifiers: Chronicity: acute Acute cor pulmonale presence: unspecified Qualified Code(s): I26.90 - Septic pulmonary embolism without acute cor pulmonale Disposition: DC-09 OP ADMIT IP TO THIS HOSP Is pt being admited?: Yes Does the pt Need Aspirin: Yes Condition: Stable Referrals: PRIMARY CARE, [Primary Care Provider] - 3-5 Days Time of Disposition: 14:16
--- NOTE | 2019-02-15 13:05 | Cat Scan Report ---
CT head/brain wo con INDICATION / CLINICAL INFORMATION: 73 years Male; AMS. TECHNIQUE: Routine CT head without contrast. All CT scans at this location are performed using CT dos e reduction for ALARA by means of automated exposure control. COMPARISON: 01/04/2019 FINDINGS: BRAIN / INTRACRANIAL CONTENTS: No acute hemorrhage, mass effect, midline shift, hydrocephalus, or acu te, large territorial infarct. Mild cerebral atrophy. Small lacunar infarcts seen in the globus pallidus on the right-unchanged from prior. There are mild areas of decreased attenuation in the white matter of the cerebral hemispheres. These are nonspecific findings and may be related to microangiopathy (hypertension, diabetes, atheroscleros is), given the patient's age. It might be difficult to evaluate for small areas of ischemia without d iffusion imaging by MRI. CRANIOCERVICAL JUNCTION: No significant abnormality. ORBITS: No significant abnormality of visualized orbits. SINUSES / MASTOIDS: Mild mucosal thickening seen in the ethmoids. Partial opacification of the mastoi d air cells bilaterally. ADDITIONAL FINDINGS: Significant temporomandibular joint disease noted on the right. Atherosclerotic disease is seen in the anterior and posterior circulation. IMPRESSION: 1. No focal mass, hemorrhage, hydrocephalus, or acute, large territorial infarct. Signer Name: Gerson York MD, III Signed: 02/15/2019 1:00 PM Workstation Name: [id number]
--- NOTE | 2019-02-15 13:09 | Cat Scan Report ---
CT CHEST WITHOUT CONTRAST INDICATION: Hypoxia. History of septic emboli. TECHNIQUE: Axial CT images were obtained through the chest without contrast. Lack of IV contrast limits evaluati on of the vascular and solid organs. Coronal and sagittal reformats were produced. All CT scans at [facility] location are performed using CT dose reduction for ALARA by means of automated exposure control. COMPARISON: One view of the chest from earlier today. CT chest without contrast from 01/04/2019. FINDINGS: MEDIASTINUM: The thyroid gland is similarly multinodular. Shotty mediastinal nodes are seen without a dominant mass. No additional significant abnormality. HEART: The heart is moderately enlarged with a small pericardial effusion. THORACIC AORTA AND ARTERIES: The aorta is normal in caliber with mild to moderate atherosclerosis see n along the aorta and great vessels. The coronary arteries are moderately calcified. LUNGS: Aeration of the lungs has slightly improved. Numerous probable septic emboli remain bilaterall y. The previously seen pleural effusions are smaller. No pneumothorax is seen. ADDITIONAL FINDINGS: None. UPPER ABDOMEN: Probable cysts are again seen throughout the liver. A small amount of ascites is uncha nged. SKELETAL SYSTEM: No acute abnormality. Degenerative changes are again seen along the spine. IMPRESSION: 1. Slightly improved aeration of the lungs with numerous persistent bilateral probable septic emboli. 2. Smaller pleural effusions. 3. Additional findings as above. Signer Name: Leobardo Ludwig MD Signed: 02/15/2019 1:05 PM Workstation Name: [id number]
[2019-02-15] MEDS ORDERED: VANCOMYCIN PHARMACY TO DOSE IV SCH (14:00)
--- NOTE | 2019-02-15 14:13 | History and Physical Report ---
History of Present Illness Chief complaint: Im short of breath History of present illness: 73 YO Male with HTN, Hyperparathyroidism, Atrial Fib/Flutter not taking therapeutic anticoagulation, Medication Noncompliance, OA, Membranous Glomerulonephritis, ESRD on HD(T,R,Sa), Septic Emboli S/P Infected Permacath presents to ED for evaluation. presents to ED for evaluation. Pt states that he has experienced generalized weakness, fatigue, shortness of breath over the past 3 days. Pt transported to [facility] via private vehicle. Pt seen and evaluated in ED and found to have Acute Hypoxemic Respiratory Failure with pulse oximetry of 80 on Room Air. Pt placed on supplemental oxygen. Pt also found to have ESRD, Acidosis, Symptomatic Anemia. Nephrology consulted in ED. Vascular surgery consulted in ED for permacath placement. Pt admitted to [facility]. Pt denies fever, chills, CP, Palpitations, NVD, Trauma, BRBPR, productive cough, or recent ill contacts. Past History Past Medical History: other (see HPI) Past Surgical History: Other (Hemorrhoidectomy) Social history: . denies: smoking, alcohol abuse, prescription drug abuse Family history: hypertension Medications and Allergies Allergies Allergy/AdvReac Type Severity Reaction Status Date / Time No Known Allergies Allergy Verified 08/27/18 16:19 Home Medications Medication Instructions Recorded Confirmed Last Taken Type Epoetin Jeramy 10,000 Unit [Procrit] 10,000 unit IV TUTHSA vial 12/19/18 01/05/19 Unknown Rx Gabapentin 100 mg PO Q8HR 30 Days #90 capsule 12/19/18 01/05/19 Unknown Rx Polyethylene Glycol 3350 [Miralax 17 gm PO QDAY 30 Days powd.pack 12/19/18 01/05/19 Unknown Rx 3350] Sevelamer Carbonate [Renvela] 2,400 mg PO AC 30 Days tablet 12/19/18 01/05/19 Unknown Rx amLODIPine 7.5 mg PO QDAY 30 Days #45 tablet 12/19/18 01/05/19 Unknown Rx oxyCODONE /ACETAMINOPHEN [Percocet 1 tab PO BID PRN #20 tablet 12/19/18 01/05/19 Unknown Rx 5/325 mg] AtorvaSTATin [Lipitor] 20 mg PO QHS 01/05/19 01/05/19 Unknown History Pantoprazole [Protonix TAB] 40 mg PO DAILY #30 tablet 01/08/19 Unknown Rx Review of Systems Constitutional: no weight loss, no fever, no chills Ears, nose, mouth and throat: no ear pain, no ear discharge, no tinnitis, no decreased hearing, no nose pain Cardiovascular: no chest pain, no orthopnea, no palpitations, no rapid/irregular heart beat, no syncope Respiratory: shortness of breath, congestion, no cough, no cough with sputum, no excessive sputum, no hemoptysis Gastrointestinal: no abdominal pain, no nausea, no vomiting, no diarrhea, no constipation Genitourinary Male: no hematuria, no flank pain, no discharge, no urinary fr equency, no urinary hesitancy Rectal: no pain, no incontinence, no bleeding Musculoskeletal: no neck pain, no shooting arm pain, no arm numbness/tingling, no low back pain, no shooting leg pain Integumentary: no rash, no pruritis, no redness, no sores, no wounds Neurological: no paralysis, no weakness, no parathesias, no numbness, no tingling, no seizures Psychiatric: no anxiety, no memory loss, no change in sleep habits, no sleep disturbances, no insomnia, no hypersomnia Endocrine: no cold intolerance, no heat intolerance, no polyphagia, no excessive thirst, no polydipsia, no polyuria, no nocturia, no excessive sweating Hematologic/Lymphatic: no easy bruising, no easy bleeding, no lymphadenopathy, no lymphedema Allergic/Immunologic: no urticaria, no allergic rhinitis, no wheezing, no pers istent infections, no anaphylaxis Exam - Constitutional Vitals: Temp Pulse Resp BP Pulse Ox 99.2 F 80 16 115/80 100 02/15/19 10:02 02/15/19 13:00 02/15/19 13:00 02/15/19 13:00 02/15/19 13:00 General appearance: Present: mild distress - EENT Eyes: Present: PERRL ENT: hearing intact, clear oral mucosa - Neck Neck: Present: supple, normal ROM - Respiratory Respiratory effort: normal Respiratory: bilateral: CTA - Cardiovascular Heart Sounds: Present: S1 & S2. Absent: rub, click - Extremities Extremities: pulses symmetrical, No edema Peripheral Pulses: within normal limits - Abdominal General gastrointestinal: Present: soft, non-tender, non-distended, normal bowel sounds Male genitourinary: Present: normal - Integumentary Integumentary: Present: clear, warm, dry - Musculoskeletal Musculoskeletal: gait normal, strength equal bilaterally - Psychiatric Psychiatric: appropriate mood/affect, intact judgment & insight - Neurologic Neurologic: CNII-XII intact, moves all extremities Results - Labs CBC & Chem 7: 02/15/19 09:47 02/15/19 09:47 Labs: Abnormal lab results 02/15/19 02/15/19 02/15/19 Range/Units 09:47 09:47 09:47 RBC 3.54 L (3.65-5.03) M/mm3 Hgb 9.5 L (11.8-15.2) gm/dl Hct 29.3 L (35.5-45.6) % MCV 83 L (84-94) fl MCH 27 L (28-32) pg RDW 18.3 H (13.2-15.2) % [place] % (Auto) 11.5 H (0.0-7.3) % [place] # 1.0 H (0.0-0.8) K/mm3 PT 17.6 H (12.2-14.9) Sec. INR 1.42 H (0.87-1.13) POC ABG pCO2 (35-45) POC ABG pO2 (80-105) VBG pH (7.320-7.420) Sodium 134 L (137-145) mmol/L Chloride 93.5 L (98-107) mmol/L BUN 53 H (9-20) mg/dL Creatinine 6.8 H (0.8-1.5) mg/dL Glucose 117 H (75-100) mg/dL ALT 6 L (7-56) units/L Total Protein 8.3 H (6.3-8.2) g/dL Albumin 2.9 L (3.9-5) g/dL 02/15/19 02/15/19 Range/Units 09:47 11:21 RBC (3.65-5.03) M/mm3 Hgb (11.8-15.2) gm/dl Hct (35.5-45.6) % MCV (84-94) fl MCH (28-32) pg RDW (13.2-15.2) % [place] % (Auto) (0.0-7.3) % [place] # (0.0-0.8) K/mm3 PT (12.2-14.9) Sec. INR (0.87-1.13) POC ABG pCO2 47.3 H (35-45) POC ABG pO2 55 L (80-105) VBG pH 7.424 H (7.320-7.420) Sodium (137-145) mmol/L Chloride (98-107) mmol/L BUN (9-20) mg/dL Creatinine (0.8-1.5) mg/dL Glucose (75-100) mg/dL ALT (7-56) units/L Total Protein (6.3-8.2) g/dL Albumin (3.9-5) g/dL Assessment and Plan - Patient Problems (1) Acute and chronic respiratory failure Current Visit: Yes Status: Acute Qualifiers: Respiratory failure complication: hypoxia Qualified Code(s): J96.21 - Acute and chronic respiratory failure with hypoxia Plan to address problem: Admti to IMCU, supplemental oxygen, nebulizer therapy, pulse oximetry, ABG, chest x ray, NIPPV as clinically indicated. (2) Septic embolism Current Visit: No Status: Acute Plan to address problem: Ontinue current care, Septic emboli unchanged since discharge, No new disease burden. (3) ESRD (end stage renal disease) Current Visit: No Status: Chronic Plan to address problem: Nephrology consulted in ED, dialysis as per renal team. monitor uop q shift, avoid nephrotoxic agents, (4) Advance care planning Current Visit: Yes Status: Acute Plan to address problem: Pt is full code, Diagnosis education conducted, Pt acknowledges understanding and agreement with care plan. +30min (5) DVT prophylaxis Current Visit: Yes Status: Acute Plan to address problem: SCD to BLE whlile in bed,
[2019-02-15] MEDS ORDERED: VANCOMYCIN 1,250 MG in SODIUM CHLORIDE 0.9% 250ML 250 ML IV ONE (14:15)
[2019-02-15] MEDS ORDERED: ASPIRIN 325 MG TAB PO ONE (14:18)
[2019-02-15 14:30] LABS: Hepatitis B Surface Antigen Non-Reactive (Negative); Hepatitis C Virus Antibody Non-Reactive (NonReactive)
[2019-02-15] MEDS ORDERED: ALBUTEROL 2.5 MG/3 ML NEBU IH PRN (15:27)
[2019-02-15] MEDS ORDERED: ONDANSETRON 4 MG/2 ML INJ IV PRN (15:27)
[2019-02-15] MEDS: GABAPENTIN 100 MG CAP PO SCH (22:48)
[2019-02-16 05:34] LABS: Calcium 9.7 mg/dL (8.4-10.2)
[2019-02-16 05:35] LABS: Albumin 2.7 g/dL (3.9-5)
[2019-02-16] MEDS: GABAPENTIN 100 MG CAP PO SCH ×3 (06:16→22:43)
[2019-02-16 08:41] LABS: Hemoglobin 9.4 gm/dl (11.8-15.2); Mean Corpuscular Volume 83 fl (84-94)
[2019-02-16 08:42] LABS: Basophils % (Auto) 0.5 % (0.0-1.8); Eosinophils # (Auto) 0.1 K/mm3 (0.0-0.4); Eosinophils % (Auto) 1.1 % (0.0-4.3); Lymphocytes # (Auto) 1.1 K/mm3 (1.2-5.4); Lymphocytes % (Auto) 15.9 % (13.4-35.0); Mean Corpuscular HGB Conc 32 % (32-34); Monocytes # (Auto) 0.8 K/mm3 (0.0-0.8); Platelet Count 144 K/mm3 (140-440); Red Cell Distribution Width 18.3 % (13.2-15.2)
--- NOTE | 2019-02-16 08:54 | Consultation ---
History of Present Illness - Reason for Consult Consult date: 02/16/19 end stage renal disease Requesting physician: KENIA INMAN - History of Present Illness 73 yo male who is well known to me with history of hypertension end-stage renal disease on hemodialysis on a Friday, and Friday schedule. Patient with recent hospitalization with MSSA bacteremia and infected septic emboli received 6 weeks cefazolin admitted to the hospital with new complaints of weakness, fatigue, and shortness of breath of 3 days' duration. He denies any fever or chills. Does complain of pain in left side of his back. He's been coughing but it's unproductive. Per the , patient was poorly responsive on presentation but is better today. 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 denies: smoking, alcohol abuse, prescription drug abuse, IV drug use Family history: CAD (father of heart disease at age 85), cancer (mother di ed of ?ovarian cancer at age 89. ), hypertension Medications and Allergies Allergies Allergy/AdvReac Type Severity Reaction Status Date / Time No Known Allergies Allergy Verified 08/27/18 16:19 Home Medications Medication Instructions Recorded Confirmed Last Taken Type Epoetin Jeramy 10,000 Unit [Procrit] 10,000 unit IV TUTHSA vial 12/19/18 02/16/19 Unknown Rx Gabapentin 100 mg PO Q8HR 30 Days #90 capsule 12/19/18 02/16/19 Unknown Rx Polyethylene Glycol 3350 [Miralax 17 gm PO QDAY 30 Days powd.pack 12/19/18 02/16/19 Unknown Rx 3350] Sevelamer Carbonate [Renvela] 2,400 mg PO AC 30 Days tablet 12/19/18 02/16/19 Unknown Rx amLODIPine 7.5 mg PO QDAY 30 Days #45 tablet 12/19/18 02/16/19 Unknown Rx oxyCODONE /ACETAMINOPHEN [Percocet 1 tab PO BID PRN #20 tablet 12/19/18 02/16/19 Unknown Rx 5/325 mg] AtorvaSTATin [Lipitor] 20 mg PO QHS 01/05/19 02/16/19 Unknown History Pantoprazole [Protonix TAB] 40 mg PO DAILY #30 tablet 01/08/19 02/16/19 Unknown Rx Active Meds: Active Medications Acetaminophen (Tylenol) 650 mg PO Q4H PRN PRN Reason: Pain MILD(1-3)/Fever >100.5/NEIL Albuterol (Proventil) 2.5 mg IH Q4HRT PRN PRN Reason: Shortness Of Breath Amlodipine Besylate (Amlodipine) 7.5 mg PO QDAY [facility] Atorvastatin Calcium (Lipitor) 20 mg PO QHS [facility] Last Admin: 02/15/19 22:48 Dose: 20 mg Documented by: Epoetin Jeramy (Procrit) 10,000 unit IV TUTHSA [facility] Gabapentin (Gabapentin) 100 mg PO Q8HR [facility] Last Admin: 02/16/19 06:16 Dose: Not Given Documented by: Heparin Sodium (Porcine) (Heparin 10,000 Units/10 Ml) 1,000 unit IV SISSY PRN PRN Reason: hemodialysis Heparin Sodium (Porcine) (Heparin) 5,000 unit IV SISSY PRN PRN Reason: hemodialysis Sodium Chloride (Nacl 0.9%) 100 mls @ 999 mls/hr IV SISSY PRN PRN Reason: Hypotension Ondansetron HCl (Zofran) 4 mg IV Q8H PRN PRN Reason: Nausea And Vomiting Oxycodone/Acetaminophen (Percocet 5/325) 1 tab PO BID PRN PRN Reason: Pain, Moderate (4-6) Pantoprazole Sodium (Protonix) 40 mg PO DAILY [facility] Polyethylene Glycol (Miralax 3350) 17 gm PO QDAY [facility] Sevelamer Carbonate (Renvela) 2,400 mg PO AC [facility] Sodium Chloride (Sodium Chloride Flush Syringe 10 Ml) 10 ml IV BID [facility] Last Admin: 02/15/19 22:49 Dose: 10 ml Documented by: Sodium Chloride (Sodium Chloride Flush Syringe 10 Ml) 10 ml IV PRN PRN PRN Reason: LINE FLUSH Review of Systems All systems: negative (Constitutional: no fever or chills. Admits to anorexia and weight loss. HEENT: No sore throat or sinus drainage no hearing or vision impairment . Cardiovascular: No chest pain, shortness of breath, palpitations, lower extremity swelling or dizziness. Respiratory: Admits to nonproductive cough, also has shortness of breath, no hemoptysis or wheezing. Gastrointestinal: No nausea, vomiting, diarrhea, abdominal pain, hematemesis or melena. Genitourinary: He no longer makes urine. No frequency urgency dysuria or hematuria. hematologic: No abnormal bleeding except from permacath site on coughing. No bruising. Integumentary: Admits to itching. No rash. Neurological: No headache no focal weakness or numbness, no syncope or seizures. Musculoskeletal: Has joint pains in both wrists. No stiffness. Psychiatry: Admits to anxiety but no depression) Exam - Vital Signs Vital signs: Vital Signs Temp Pulse Resp BP Pulse Ox 98.5 F 104 H 22 95/59 87 02/15/19 09:42 02/15/19 09:42 02/15/19 09:42 02/15/19 09:42 02/15/19 09:42 - Physical Exam Narrative exam: Frail elderly -L[place] male lying in bed in no acute distress HEENT: NCAT, pink oral mucous membrane Neck: Supple, no venous distention CVS: S1S2 RRR with no murmur, rub or gallop Chest: Clear to auscultation Abdomen: Protuberant, soft, nontender, no organomegaly, bowel sounds are present Extremities: Muscle wasting, No edema Genitourinary deferred Neuro: Awake, looks dull, no focal deficits Results - Lab Results 02/16/19 04:25 02/16/19 04:25 Most recent lab results Calcium 9.7 mg/dL (8.4-10.2) 02/16/19 04:25 Assessment and Plan - Patient Problems (1) Staphylococcus aureus bacteremia with sepsis Current Visit: Yes Status: Acute Plan to address problem: Patient with recent MSSA bacteremia with infectious endocarditis and septic emb akbar. Concerned about recurrence. ID and sensitivity of blood cultures pending. Infectious disease on the case. Patient receiving vancomycin pending culture (2) Altered mental status Current Visit: No Status: Acute Plan to address problem: Toxic encephalopathy improved. 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 (7) Hyponatremia Current Visit: Yes Status: Acute Plan to address problem: Hemodialysis for fluid removal. Reevaluate
[2019-02-16] MEDS ORDERED: HEPARIN 10,000 UNIT/1 ML VIAL IV PRN (11:00)
[2019-02-16] MEDS ORDERED: HEPARIN 10,000 UNITS/10 ML VIAL IV PRN (11:00)
[2019-02-16] MEDS ORDERED: SODIUM CHLORIDE 0.9% 100 ML IV PRN (11:00)
[2019-02-16] MEDS ORDERED: SODIUM CHLORIDE*PRIMING MACHINE ONLY FOR DIALYSIS MC ONE (11:02)
--- NOTE | 2019-02-16 12:37 | Progress Note ---
Assessment and Plan Assessment and plan: Acute and chronic respiratory failure Admitted to [facility] supplemental oxygen, nebulizer therapy, pulse oximetry, ABG, chest x ray, NIPPV as clinically indicated. Sepsis due to Gram pos cocci Bacteremia with Gram pos cocci Consult ID Physician History of Septic embolism ESRD (end stage renal disease) Nephrology consulted, following, dialysis as per renal team. monitor uop q shift, avoid nephrotoxic agents, Advance care planning Pt is full code, Diagnosis education conducted, Pt acknowledges understanding and agreement with care plan. DVT prophylaxis SCD to BLE whlile in bed, History Interval history: Less shortness of breath Fatigue Hospitalist Physical - Physical exam Narrative exam: Gen: Not in acute distress, lying in bed, HEENT: Normocephalic, atraumatic Neck: supple, no JVD Heart: S1 and S2 reg, no murmurs, rubs or gallop Lungs: clear to auscultation bilaterally, no crackles Abd: soft, NT, non distended, normal BS Ext: No edema, no clubbing, no cyanosis Neuro:Awake,alert, moves all ext - Constitutional Vitals: Temp Pulse Resp BP Pulse Ox 98.2 F 87 18 136/69 98 02/16/19 09:30 02/16/19 12:00 02/16/19 09:30 02/16/19 12:00 02/16/19 08:55 Results - Labs CBC & Chem 7: 02/16/19 04:25 02/17/19 05:54 Labs: Laboratory Last Values WBC 6.9 K/mm3 (4.5-11.0) 02/16/19 04:25 RBC 3.50 M/mm3 (3.65-5.03) L 02/16/19 04:25 Hgb 9.4 gm/dl (11.8-15.2) L 02/16/19 04:25 Hct 29.0 % (35.5-45.6) L 02/16/19 04:25 MCV 83 fl (84-94) L 02/16/19 04:25 MCH 27 pg (28-32) L 02/16/19 04:25 MCHC 32 % (32-34) 02/16/19 04:25 RDW 18.3 % (13.2-15.2) H 02/16/19 04:25 Plt Count 144 K/mm3 (140-440) 02/16/19 04:25 Lymph % (Auto) 15.9 % (13.4-35.0) 02/16/19 04:25 [place] % (Auto) 12.0 % (0.0-7.3) H 02/16/19 04:25 Eos % (Auto) 1.1 % (0.0-4.3) 02/16/19 04:25 Baso % (Auto) 0.5 % (0.0-1.8) 02/16/19 04:25 Lymph # 1.1 K/mm3 (1.2-5.4) L 02/16/19 04:25 [place] # 0.8 K/mm3 (0.0-0.8) 02/16/19 04:25 Eos # 0.1 K/mm3 (0.0-0.4) 02/16/19 04:25 Baso # 0.0 K/mm3 (0.0-0.1) 02/16/19 04:25 Seg Neutrophils % 70.5 % (40.0-70.0) H 02/16/19 04:25 Seg Neutrophils # 4.8 K/mm3 (1.8-7.7) 02/16/19 04:25 PT 17.6 Sec. (12.2-14.9) H 02/15/19 09:47 INR 1.42 (0.87-1.13) H 02/15/19 09:47 POC ABG pH 7.415 (7.35-7.45) 02/15/19 11:21 POC ABG pCO2 47.3 (35-45) H 02/15/19 11:21 POC ABG pO2 55 (80-105) L 02/15/19 11:21 POC ABG HCO3 30.3 (22-26 mml/L) 02/15/19 11:21 POC ABG Total CO2 32 (23-27mmol/L) 02/15/19 11:21 POC ABG O2 Sat 88 02/15/19 11:21 POC ABG Base Excess 6 ((-2) - (+3)mmol/L) 02/15/19 11:21 VBG pH 7.424 (7.320-7.420) H 02/15/19 09:47 FiO2 21 % 02/15/19 11:21 Sodium 134 mmol/L (137-145) L 02/16/19 04:25 Potassium 5.1 mmol/L (3.6-5.0) H D 02/16/19 04:25 Chloride 94 mmol/L (98-107) L 02/16/19 04:25 Carbon Dioxide 26 mmol/L (22-30) 02/16/19 04:25 Anion Gap 19 mmol/L 02/16/19 04:25 BUN 63 mg/dL (9-20) H 02/16/19 04:25 Creatinine 8.1 mg/dL (0.8-1.5) H 02/16/19 04:25 Estimated GFR 8 ml/min 02/16/19 04:25 BUN/Creatinine Ratio 8 % 02/16/19 04:25 Glucose 97 mg/dL (75-100) 02/16/19 04:25 Lactic Acid 1.00 mmol/L (0.7-2.0) 02/15/19 14:31 Calcium 9.7 mg/dL (8.4-10.2) 02/16/19 04:25 Total Bilirubin 0.50 mg/dL (0.1-1.2) 02/16/19 04:25 AST 29 units/L (5-40) 02/16/19 04:25 ALT 6 units/L (7-56) L 02/16/19 04:25 Alkaline Phosphatase 115 units/L (35-129) 02/16/19 04:25 Ammonia 41.0 umol/L (25-60) 02/15/19 14:31 Total Protein 8.2 g/dL (6.3-8.2) 02/16/19 04:25 Albumin 2.7 g/dL (3.9-5) L 02/16/19 04:25 Albumin/Globulin Ratio 0.5 % 02/16/19 04:25 Hepatitis A IgM Ab Non-reactive (NonReactive) 02/15/19 13:16 Hep Bs Antigen Non-reactive (Negative) 02/15/19 13:16 Hep B Core IgM Ab Non-reactive (NonReactive) 02/15/19 13:16 Hepatitis C Antibody Non-reactive (NonReactive) 02/15/19 13:16 Active Medications - Current Medications Current Medications: Generic Name Dose Route Start Last Admin Trade Name Freq PRN Reason Stop Dose Admin Acetaminophen 650 mg 02/15/19 15:27 Tylenol PO Q4H PRN Pain MILD(1-3)/Fever >100.5/NEIL Albuterol 2.5 mg 02/15/19 15:27 Proventil IH Q4HRT PRN Shortness Of Breath Amlodipine Besylate 7.5 mg 02/16/19 10:00 Amlodipine PO QDAY [facility] Atorvastatin Calcium 20 mg 02/15/19 22:00 02/15/19 22:48 Lipitor PO 20 mg QHS [facility] Administration Epoetin Jeramy 10,000 unit 02/16/19 20:15 Procrit IV TUTHSA [facility] Gabapentin 100 mg 02/15/19 22:00 02/16/19 06:16 Gabapentin PO Not Given Q8HR [facility] Heparin Sodium (Porcine) 1,000 unit 02/16/19 11:00 Heparin 10,000 Units/10 Ml IV SISSY PRN hemodialysis Heparin Sodium (Porcine) 5,000 unit 02/16/19 11:00 Heparin IV SISSY PRN hemodialysis Sodium Chloride 100 mls @ 999 mls/hr 02/16/19 11:00 Nacl 0.9% IV SISSY PRN Hypotension Ondansetron HCl 4 mg 02/15/19 15:27 Zofran IV Q8H PRN Nausea And Vomiting Oxycodone/Acetaminophen 1 tab 02/15/19 20:15 Percocet 5/325 PO BID PRN Pain, Moderate (4-6) Pantoprazole Sodium 40 mg 02/16/19 10:00 Protonix PO DAILY [facility] Polyethylene Glycol 17 gm 02/16/19 10:00 Miralax 3350 PO QDAY [facility] Sevelamer Carbonate 2,400 mg 02/16/19 07:30 Renvela PO AC [facility] Sodium Chloride 10 ml 02/15/19 22:00 02/15/19 22:49 Sodium Chloride Flush Syringe 10 Ml IV 10 ml BID [facility] Administration Sodium Chloride 10 ml 02/15/19 15:27 Sodium Chloride Flush Syringe 10 Ml IV PRN PRN LINE FLUSH
[2019-02-16] MEDS: EPOETIN ALFA 10,000 UNIT/1 ML INJ IV SCH (13:00)
[2019-02-16] MEDS: SEVELAMER CARBONATE 800 MG TAB PO SCH ×2 (15:21→15:43)
[2019-02-16] MEDS: POLYETHYLENE GLYCOL 3350 17 GM POWDER PO SCH (15:22)
[2019-02-16] MEDS: PANTOPRAZOLE 40 MG TAB PO SCH (15:44)
[2019-02-16] MEDS: amLODIPine 5 MG TAB PO SCH (15:44)
--- NOTE | 2019-02-16 16:13 | Consultation ---
History of Present Illness - Reason for Consult Consult date: 02/16/19 - History of Present Illness 73 yo M PMHx MSSA bacteremia and infected septic emboli (s/p 6 weeks cefazolin), HTN, afib/a flutter, ESRd on HD admitted to the hospital with new complaints of weakness, fatigue, and SOB which began 3 days prior to admission. He otherwise denies symptoms. He is well-known to our service due to his recent and recurrent MSSA bacteremia and septic emboli, for which we completed a 6 week treatment course of cefazolin in the past. He is noted to have a gluteal wound. Afebrile since admission with a normal white count. Currently receiving vancomycin. Blood cultures with Staph aureus. Imaging personally reviewed: Chest CT: improved aeration with persistent septic emboli. Review of systems: Bold if positive; otherwise negative GENERAL: fever, chills, weight loss, fatigue, night sweats EYES: blurry vision, eye pain HENT: headache, hearing loss, sore throat, dysphagia, sinus pain CARDIO: chest pain, palpitations, orthopnea PULM: shortness of breath, wheezing, cough, sputum, hemoptysis GI: nausea, vomiting, diarrhea, abdominal pain, blood in stool : urinary frequency, urgency, dysuria, urethral discharge MSK: joint pain, back pain, swelling SKIN: rash, redness HEME: easy bruising, bleeding Past History Past Medical History: other (see HPI) Past Surgical History: Other (Hemorrhoidectomy) Social history: . denies: smoking, alcohol abuse, prescription drug abuse Family history: hypertension Medications and Allergies Allergies Allergy/AdvReac Type Severity Reaction Status Date / Time No Known Allergies Allergy Verified 08/27/18 16:19 Home Medications Medication Instructions Recorded Confirmed Last Taken Type Epoetin Jeramy 10,000 Unit [Procrit] 10,000 unit IV TUTHSA vial 12/19/18 02/16/19 Unknown Rx Gabapentin 100 mg PO Q8HR 30 Days #90 capsule 12/19/18 02/16/19 Unknown Rx Polyethylene Glycol 3350 [Miralax 17 gm PO QDAY 30 Days powd.pack 12/19/18 02/16/19 Unknown Rx 3350] Sevelamer Carbonate [Renvela] 2,400 mg PO AC 30 Days tablet 12/19/18 02/16/19 Unknown Rx amLODIPine 7.5 mg PO QDAY 30 Days #45 tablet 12/19/18 02/16/19 Unknown Rx oxyCODONE /ACETAMINOPHEN [Percocet 1 tab PO BID PRN #20 tablet 12/19/18 02/16/19 Unknown Rx 5/325 mg] AtorvaSTATin [Lipitor] 20 mg PO QHS 01/05/19 02/16/19 Unknown History Pantoprazole [Protonix TAB] 40 mg PO DAILY #30 tablet 01/08/19 02/16/19 Unknown Rx Active Meds: Active Medications Acetaminophen (Tylenol) 650 mg PO Q4H PRN PRN Reason: Pain MILD(1-3)/Fever >100.5/NEIL Albuterol (Proventil) 2.5 mg IH Q4HRT PRN PRN Reason: Shortness Of Breath Amlodipine Besylate (Amlodipine) 7.5 mg PO QDAY [facility] Last Admin: 02/16/19 15:44 Dose: 7.5 mg Documented by: Atorvastatin Calcium (Lipitor) 20 mg PO QHS [facility] Last Admin: 02/15/19 22:48 Dose: 20 mg Documented by: Epoetin Jeramy (Procrit) 10,000 unit IV TUTHSA [facility] Last Admin: 02/16/19 13:00 Dose: 10,000 unit Documented by: Gabapentin (Gabapentin) 100 mg PO Q8HR [facility] Last Admin: 02/16/19 15:43 Dose: 100 mg Documented by: Heparin Sodium (Porcine) (Heparin 10,000 Units/10 Ml) 1,000 unit IV SISSY PRN PRN Reason: hemodialysis Heparin Sodium (Porcine) (Heparin) 5,000 unit IV SISSY PRN PRN Reason: hemodialysis Sodium Chloride (Nacl 0.9%) 100 mls @ 999 mls/hr IV SISSY PRN PRN Reason: Hypotension Ondansetron HCl (Zofran) 4 mg IV Q8H PRN PRN Reason: Nausea And Vomiting Oxycodone/Acetaminophen (Percocet 5/325) 1 tab PO BID PRN PRN Reason: Pain, Moderate (4-6) Pantoprazole Sodium (Protonix) 40 mg PO DAILY [facility] Last Admin: 02/16/19 15:44 Dose: 40 mg Documented by: Polyethylene Glycol (Miralax 3350) 17 gm PO QDAY [facility] Last Admin: 02/16/19 15:22 Dose: Not Given Documented by: Sevelamer Carbonate (Renvela) 2,400 mg PO AC [facility] Last Admin: 02/16/19 15:43 Dose: 2,400 mg Documented by: Sodium Chloride (Sodium Chloride Flush Syringe 10 Ml) 10 ml IV BID [facility] Last Admin: 02/16/19 15:45 Dose: 10 ml Documented by: Sodium Chloride (Sodium Chloride Flush Syringe 10 Ml) 10 ml IV PRN PRN PRN Reason: LINE FLUSH Physical Examination - Physical Exam Narrative exam: General Normal appearance, well developed, no acute distress Eyes - PERRLA, EOM intact ENT - Moist mucous membranes, no lymphadenopathy Neck - No noticeable or palpable swelling, redness or rash around throat or on face Lymph Nodes - No lymphadenopathy Cardiovascular - RRR no m/r/g, no JVD, no carotid bruits Lungs - Clear to auscultation, no use of accessory muscles, no crackles or wheezes. Skin - No rashes, skin warm and dry, no erythematous areas Abdomen - Normal bowel sounds, abdomen soft and nontender Extremities - No edema, cyanosis or clubbing Musculoskeletal - 5/5 strength, normal range of motion, no swollen or erythematous joints. Neurological Alert and oriented x 3, CN 2-12 grossly intact. - Constitutional Vitals: Vital Signs Temp Pulse Resp BP Pulse Ox 99.0 F 98 H 20 137/85 100 02/16/19 13:49 02/16/19 15:44 02/16/19 13:49 02/16/19 15:44 02/16/19 13:49 Temperature -Last 24 Hours Temperature 99.0 F Temperature 98.0 F Temperature 98.2 F Temperature 98.4 F Temperature 98.4 F Temperature 99.6 F Results - Labs CBC & Chem 7: 02/16/19 04:25 02/16/19 04:25 Labs: Abnormal lab results 02/16/19 02/16/19 Range/Units 04:25 04:25 RBC 3.50 L (3.65-5.03) M/mm3 Hgb 9.4 L (11.8-15.2) gm/dl Hct 29.0 L (35.5-45.6) % MCV 83 L (84-94) fl MCH 27 L (28-32) pg RDW 18.3 H (13.2-15.2) % Edwards % (Auto) 12.0 H (0.0-7.3) % Lymph # 1.1 L (1.2-5.4) K/mm3 Seg Neutrophils % 70.5 H (40.0-70.0) % Sodium 134 L (137-145) mmol/L Potassium 5.1 H D (3.6-5.0) mmol/L Chloride 94 L (98-107) mmol/L BUN 63 H (9-20) mg/dL Creatinine 8.1 H (0.8-1.5) mg/dL ALT 6 L (7-56) units/L Albumin 2.7 L (3.9-5) g/dL Assessment and Plan Cultures Blood culture 02/15/17 Staph aureus Assessment: 73 yo M PMHx MSSA bacteremia and infected septic emboli (s/p 6 weeks cefazolin), HTN, afib/a flutter, ESRd on HD admitted with S aureus bacteremia 1. Staph aureus bacteremia - source is likely dialysis line. Probably MSSA as previous, but will follow up cultures for MICs. Line needsd to be removed, ok to replace a permanent line when cultures negative x48 hours. Needs TTE 2. Hx of septic emboli - complaining of SOB, imaging shows septic emboli not worse than previous, though with new bacteremia concern they could yet still become worse. 3. ESRD on HD - renally dose antibiotics. 4. HTN Recs: - continue vancomycin with pharmacy dosing, goal ttrough 15-20. - likely to de-escalate to cefazolin pending MITCH - dialysis line needs to be removed - ok for replacement line after 48 hours of negative cultures - ordered repeat cultures for the AM - ordered TTE Thank you for the consult, we will continue to follow. [facility] M: [phone] O: [phone] F: [phone]
[2019-02-16] MEDS: HEPARIN 5,000 UNIT/1 ML VIAL SUB-Q SCH (22:43)
[2019-02-17] MEDS: EPOETIN ALFA 10,000 UNIT/1 ML INJ IV SCH (02:26)
[2019-02-17] MEDS: GABAPENTIN 100 MG CAP PO SCH ×3 (06:32→22:27)
[2019-02-17 06:45] LABS: Calcium 9.5 mg/dL (8.4-10.2)
[2019-02-17] MEDS ORDERED: VANCOMYCIN 500 MG in SODIUM CHLORIDE 0.9% 100 ML IV ONE (09:00)
[2019-02-17] MEDS: SEVELAMER CARBONATE 800 MG TAB PO SCH ×3 (09:50→18:29)
[2019-02-17] MEDS: PANTOPRAZOLE 40 MG TAB PO SCH (09:50)
[2019-02-17] MEDS: HEPARIN 5,000 UNIT/1 ML VIAL SUB-Q SCH ×2 (09:50→22:28)
[2019-02-17] MEDS: amLODIPine 5 MG TAB PO SCH (09:51)
[2019-02-17] MEDS: POLYETHYLENE GLYCOL 3350 17 GM POWDER PO SCH (09:51)
--- NOTE | 2019-02-17 13:53 | Progress Note ---
Assessment and Plan Cultures Blood culture 02/15/17 MSSA Assessment: 73 yo M PMHx MSSA bacteremia and infected septic emboli (s/p 6 weeks cefazolin), HTN, afib/a flutter, ESRd on HD admitted with S aureus bacteremia 1. MSSA bacteremia - source is likely dialysis line. Line needsd to be removed, ok to replace a permanent line when cultures negative x48 hours. Needs TTE 2. Hx of septic emboli - complaining of SOB, imaging shows septic emboli not worse than previous, though with new bacteremia concern they could yet still become worse. 3. ESRD on HD - renally dose antibiotics. 4. HTN Recs: - stopped vancomycin, started cefazolin which can be given with dialysis on discharge. - cefazolin 2g q24h. - dialysis line needs to be removed - ok for replacement line after 48 hours of negative cultures - ordered TTE Thank you for the consult, we will continue to follow. [facility] M: [phone] O: [phone] F: [phone] Subjective Date of service: 02/17/19 Interval history: Afwebrile, normal white count. No change. MSSA in blood. Objective - Exam Narrative Exam: General Normal appearance, well developed, no acute distress Eyes - PERRLA, EOM intact ENT - Moist mucous membranes, no lymphadenopathy Neck - No noticeable or palpable swelling, redness or rash around throat or on face Lymph Nodes - No lymphadenopathy Cardiovascular - RRR no m/r/g, no JVD, no carotid bruits Lungs - Clear to auscultation, no use of accessory muscles, no crackles or wheezes. Skin - No rashes, skin warm and dry, no erythematous areas Abdomen - Normal bowel sounds, abdomen soft and nontender Extremities - No edema, cyanosis or clubbing Musculoskeletal - 5/5 strength, normal range of motion, no swollen or erythematous joints. Neurological Alert and oriented x 3, CN 2-12 grossly intact. - Constitutional Vitals: Vital Signs Temp Pulse Resp BP Pulse Ox 98.0 F 101 H 20 114/78 88 02/17/19 07:27 02/17/19 10:00 02/17/19 07:27 02/17/19 07:27 02/17/19 07:27 Temperature -Last 24 Hours Temperature 98.0 F Temperature 98.4 F Temperature 98.9 F - Labs CBC & Chem 7: 02/16/19 04:25 02/17/19 05:54 Labs: Abnormal lab results 02/17/19 Range/Units 05:54 Chloride 95.2 L (98-107) mmol/L BUN 40 H (9-20) mg/dL Creatinine 5.7 H (0.8-1.5) mg/dL Glucose 111 H (75-100) mg/dL
[2019-02-17] MEDS ORDERED: LIDOCAINE (1%) 10 MG/1 ML VIAL 20 ML MDV INFILTRATI ONE (17:00)
--- NOTE | 2019-02-17 17:06 | Consultation ---
History of Present Illness - Reason for Consult Consult date: 02/17/19 Infected Permacath with Bacteremia Requesting physician: KENIA INMAN - History of Present Illness The patient is a 73-year-old male with history of end-stage renal disease who is currently on hemodialysis through a left internal jugular permacath. He has previously been hospitalized for a catheter related infection with bacteremia with MSSA requiring 6 weeks of antibiotics for septic emboli and possible endocarditis. He presented to the emergency department with complaints of shortness of breath and generalized weakness. He was admitted and found to have fevers with bacteremia and a suspected permacath infection. We were consulted for removal of the permacath for a permacath holiday. He has no additional complaints at this time. 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 denies: smoking, alcohol abuse, prescription drug abuse, IV drug use Family history: CAD (father of heart disease at age 85), cancer (mother of ?ovarian cancer at age 89. ), hypertension Medications and Allergies Allergies Allergy/AdvReac Type Severity Reaction Status Date / Time No Known Allergies Allergy Verified 08/27/18 16:19 Home Medications Medication Instructions Recorded Confirmed Last Taken Type Epoetin Jeramy 10,000 Unit [Procrit] 10,000 unit IV TUTHSA vial 12/19/18 02/16/19 Unknown Rx Gabapentin 100 mg PO Q8HR 30 Days #90 capsule 12/19/18 02/16/19 Unknown Rx Polyethylene Glycol 3350 [Miralax 17 gm PO QDAY 30 Days powd.pack 12/19/18 02/16/19 Unknown Rx 3350] Sevelamer Carbonate [Renvela] 2,400 mg PO AC 30 Days tablet 12/19/18 02/16/19 Unknown Rx amLODIPine 7.5 mg PO QDAY 30 Days #45 tablet 12/19/18 02/16/19 Unknown Rx oxyCODONE /ACETAMINOPHEN [Percocet 1 tab PO BID PRN #20 tablet 12/19/18 02/16/19 Unknown Rx 5/325 mg] AtorvaSTATin [Lipitor] 20 mg PO QHS 01/05/19 02/16/19 Unknown History Pantoprazole [Protonix TAB] 40 mg PO DAILY #30 tablet 01/08/19 02/16/19 Unknown Rx Active Meds: Active Medications Acetaminophen (Tylenol) 650 mg PO Q4H PRN PRN Reason: Pain MILD(1-3)/Fever >100.5/NEIL Albuterol (Proventil) 2.5 mg IH Q4HRT PRN PRN Reason: Shortness Of Breath Amlodipine Besylate (Amlodipine) 7.5 mg PO QDAY [facility] Last Admin: 02/17/19 09:51 Dose: 7.5 mg Documented by: Atorvastatin Calcium (Lipitor) 20 mg PO QHS [facility] Last Admin: 02/16/19 22:43 Dose: 20 mg Documented by: Epoetin Jeramy (Procrit) 10,000 unit IV TUTHSA [facility] Last Admin: 02/17/19 02:26 Dose: Not Given Documented by: Gabapentin (Gabapentin) 100 mg PO Q8HR [facility] Last Admin: 02/17/19 15:02 Dose: 100 mg Documented by: Heparin Sodium (Porcine) (Heparin 10,000 Units/10 Ml) 1,000 unit IV SISSY PRN PRN Reason: hemodialysis Heparin Sodium (Porcine) (Heparin) 5,000 unit IV SISSY PRN PRN Reason: hemodialysis Heparin Sodium (Porcine) (Heparin) 5,000 unit SUB-Q Q12HR [facility] Last Admin: 02/17/19 09:50 Dose: 5,000 unit Documented by: Sodium Chloride (Nacl 0.9%) 100 mls @ 999 mls/hr IV SISSY PRN PRN Reason: Hypotension Cefazolin Sodium 2 gm/ Sodium (Chloride) 100 mls @ 200 mls/hr IV Q24H [facility]; Protocol Last Admin: 02/17/19 15:02 Dose: 200 mls/hr Documented by: Ondansetron HCl (Zofran) 4 mg IV Q8H PRN PRN Reason: Nausea And Vomiting Oxycodone/Acetaminophen (Percocet 5/325) 1 tab PO BID PRN PRN Reason: Pain, Moderate (4-6) Pantoprazole Sodium (Protonix) 40 mg PO DAILY [facility] Last Admin: 02/17/19 09:50 Dose: 40 mg Documented by: Polyethylene Glycol (Miralax 3350) 17 gm PO QDAY [facility] Last Admin: 02/17/19 09:51 Dose: 17 gm Documented by: Sevelamer Carbonate (Renvela) 2,400 mg PO AC [facility] Last Admin: 02/17/19 12:51 Dose: 2,400 mg Documented by: Sodium Chloride (Sodium Chloride Flush Syringe 10 Ml) 10 ml IV BID [facility] Last Admin: 02/17/19 09:52 Dose: 10 ml Documented by: Sodium Chloride (Sodium Chloride Flush Syringe 10 Ml) 10 ml IV PRN PRN PRN Reason: LINE FLUSH Review of Systems All systems: negative Exam - Constitutional Vitals: Temp Pulse Resp BP Pulse Ox 98.0 F 119 H 20 124/72 92 02/17/19 13:05 02/17/19 13:06 02/17/19 13:05 02/17/19 13:05 02/17/19 13:06 General appearance: Present: no acute distress, other (Left chest permacath with old blood surrounding the exit site however no evidence of purulence or erythema) - Neck Neck: Present: supple - Respiratory Respiratory effort: normal - Cardiovascular Rhythm: irregularly irregular - Extremities Extremities: no ischemia Extremity abnormal: other (Left brachiobasilic fistula with palpable thrill) - Abdominal General gastrointestinal: Present: soft Results - Labs CBC & Chem 7: 02/16/19 04:25 02/17/19 05:54 Labs: Abnormal lab results 02/17/19 Range/Units 05:54 Chloride 95.2 L (98-107) mmol/L BUN 40 H (9-20) mg/dL Creatinine 5.7 H (0.8-1.5) mg/dL Glucose 111 H (75-100) mg/dL Assessment and Plan The patient is a 73-year-old male with a history of bacteremia and possible endocarditis who presented with bacteremia and a permacath infection. He is in need of removal of his permacath for permacath holiday and treatment with IV antibiotics. Additionally the patient has a left arm brachial basilic arteriovenous fistula however this fistula has not been revised or elevated and is not able to be accessed at this time. I will set him up for removal of his permacath at this time. He will likely require a Vas-Cath at some point for dialysis. Once he is cleared by infectious disease to have placement of a permacath will set him up to receive the permacath in the operating room so that he can have revision with elevation of his left brachiobasilic arteriovenous fistula at the same setting. I discussed this plan with the patient as well as his who expressed understanding of the plan and agree.
--- NOTE | 2019-02-17 17:06 | Operative Report ---
Operative Report Operative Report: Date of Procedure: 02/17/2019 Pre-operative Diagnosis: Complications of Dialysis Access Post-operative Diagnosis: Same Procedure(s): 1. Removal of Left Internal Jugular Permacath Surgeon: Abbe Sinha M.D. Decorator Mannequin: None Anesthesia: 1% Lidocaine EBL: Minimal Counts: Correct Complications: None Condition: Stable Findings: Permacath removed without significant difficulty secondary to cough not well incorporated suggestive of tract infection. Specimen: Left internal jugular permacath tip sent for culture. Indication: The patient is a 73-year-old male who has a permacath infection with an associated bacteremia causing septic emboli and is in need of removal. He and his were given the risk, benefits, and alternative procedures and consented to the procedure. Description of Procedure: The procedure was performed at the patient's bedside. After informed consent was obtained the patient's left chest, neck, and indwelling catheter were prepped and draped in normal sterile fashion. 1% lidocaine was used to anesthetize the exit site on the chest and up to the cuff that was able to be palpated through the skin. Scissors were then used to cut a suture that was securing the catheter in place. A curved hemostat was then used to dilate the exit site and as I was attempting to place tension on the catheter with the intent to use the hemostat to separate the cuff from the surrounding tissue the catheter slid out without having to separate the cuff from the tissue. This suggested that the track was infected. There was a cloudy fluid that drained from the tract prior to venous blood draining from the tract however there was no obvious purulence from the tract. Pressure was held on the jugular vein at the neck for approximately 5 minutes until hemostasis was achieved and then gauze and a Tegaderm was placed on the exit site on the chest. The catheter tip was then transected and sent for cultures. The patient tolerated the procedure well and remained in his room in stable condition.
--- NOTE | 2019-02-17 17:41 | Progress Note ---
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 Has MSSA bacteremia. Vascular surgery consulted and permacath has been removed. Continue antibiotics per infectious disease (2) Altered mental status Current Visit: No Status: Acute Plan to address problem: Toxic encephalopathy improved. (3) Anemia in CKD (chronic kidney disease) Current Visit: No Status: Acute Qualifiers: Chronic kidney disease stage: stage 5, not on chronic dialysis Qualified Code(s): N18.5 - Chronic kidney disease, stage 5; D63.1 - Anemia in chronic kidney disease Plan to address problem: Give erythropoietin on dialysis (4) Hyperkalemia Current Visit: No Status: Acute Plan to address problem: Potassium has improved. Monitor potassium daily 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 chronic kidney disease or end stage renal disease Current Visit: No Status: Acute Plan to address problem: Follow blood pressure on current medications (6) ESRD (end stage renal disease) Current Visit: No Status: Chronic Plan to address problem: Evaluating him for hemodialysis on a daily basis. If patient has to have dialysis before 48 hours of negative cultures, will get a temporary dialysis catheter/Vas-Cath (7) Hyponatremia Current Visit: Yes Status: Acute Plan to address problem: Hemodialysis for fluid removal. Reevaluate Subjective Date of service: 02/17/19 Principal diagnosis: end-stage renal disease with MSSA bacteremia Interval history: Patient seen lying in bed, at bedside. Patient is confused and thinks he is at home and just came back from work Objective - Exam Narrative Exam: Frail elderly -[place] male lying in bed in no acute distress HEENT: NCAT, pink oral mucous membrane Neck: Supple, no venous distention CVS: S1S2 RRR with no murmur, rub or gallop Chest: Clear to auscultation Abdomen: Protuberant, soft, nontender, no organomegaly, bowel sounds are present Extremities: Muscle wasting, No edema Genitourinary deferred Neuro: Awake, looks dull, no focal deficits - Vital Signs Vital signs: Vital Signs - 12hr 02/17/19 02/17/19 02/17/19 07:27 10:00 13:05 Temperature 98.0 F 98.0 F Pulse Rate 101 H 101 H 118 H Respiratory 20 20 Rate Blood Pressure 114/78 124/72 O2 Sat by Pulse 88 81 L Oximetry 02/17/19 13:06 Temperature Pulse Rate 119 H Respiratory Rate Blood Pressure O2 Sat by Pulse 92 Oximetry - Lab 02/16/19 04:25 02/17/19 05:54 Most recent lab results Calcium 9.5 mg/dL (8.4-10.2) 02/17/19 05:54 Medications & Allergies - Medications Allergies/Adverse Reactions: Allergies No Known Allergies Allergy (Verified 08/27/18 16:19) Home Medications: Home Medications Medication Instructions Recorded Confirmed Last Taken Type Epoetin Jeramy 10,000 Unit [Procrit] 10,000 unit IV TUTHSA vial 12/19/18 02/16/19 Unknown Rx Gabapentin 100 mg PO Q8HR 30 Days #90 capsule 12/19/18 02/16/19 Unknown Rx Polyethylene Glycol 3350 [Miralax 17 gm PO QDAY 30 Days powd.pack 12/19/18 02/16/19 Unknown Rx 3350] Sevelamer Carbonate [Renvela] 2,400 mg PO AC 30 Days tablet 12/19/18 02/16/19 Unknown Rx amLODIPine 7.5 mg PO QDAY 30 Days #45 tablet 12/19/18 02/16/19 Unknown Rx oxyCODONE /ACETAMINOPHEN [Percocet 1 tab PO BID PRN #20 tablet 12/19/18 02/16/19 Unknown Rx 5/325 mg] AtorvaSTATin [Lipitor] 20 mg PO QHS 01/05/19 02/16/19 Unknown History Pantoprazole [Protonix TAB] 40 mg PO DAILY #30 tablet 01/08/19 02/16/19 Unknown Rx Active Medications: Generic Name Dose Route Start Last Admin Trade Name Freq PRN Reason Stop Dose Admin Acetaminophen 650 mg 02/15/19 15:27 Tylenol PO Q4H PRN Pain MILD(1-3)/Fever >100.5/NEIL Albuterol 2.5 mg 02/15/19 15:27 Proventil IH Q4HRT PRN Shortness Of Breath Amlodipine Besylate 7.5 mg 02/16/19 10:00 02/17/19 09:51 Amlodipine PO 7.5 mg QDAY [facility] Administration Atorvastatin Calcium 20 mg 02/15/19 22:00 02/16/19 22:43 Lipitor PO 20 mg QHS [facility] Administration Epoetin Jeramy 10,000 unit 02/16/19 20:15 02/17/19 02:26 Procrit IV Not Given TUTHSA [facility] Gabapentin 100 mg 02/15/19 22:00 02/17/19 15:02 Gabapentin PO 100 mg Q8HR [facility] Administration Heparin Sodium (Porcine) 1,000 unit 02/16/19 11:00 Heparin 10,000 Units/10 Ml IV SISSY PRN hemodialysis Heparin Sodium (Porcine) 5,000 unit 02/16/19 11:00 Heparin IV SISSY PRN hemodialysis Heparin Sodium (Porcine) 5,000 unit 02/16/19 22:00 02/17/19 09:50 Heparin SUB-Q 5,000 unit Q12HR [facility] Administration Sodium Chloride 100 mls @ 999 mls/hr 02/16/19 11:00 Nacl 0.9% IV SISSY PRN Hypotension Cefazolin Sodium 2 gm/ Sodium 100 mls @ 200 mls/hr 02/17/19 15:00 02/17/19 15:02 Chloride IV 200 mls/hr Q24H [facility] Administration Protocol Ondansetron HCl 4 mg 02/15/19 15:27 Zofran IV Q8H PRN Nausea And Vomiting Oxycodone/Acetaminophen 1 tab 02/15/19 20:15 Percocet 5/325 PO BID PRN Pain, Moderate (4-6) Pantoprazole Sodium 40 mg 02/16/19 10:00 02/17/19 09:50 Protonix PO 40 mg DAILY [facility] Administration Polyethylene Glycol 17 gm 02/16/19 10:00 02/17/19 09:51 Miralax 3350 PO 17 gm QDAY [facility] Administration Sevelamer Carbonate 2,400 mg 02/16/19 07:30 02/17/19 12:51 Renvela PO 2,400 mg AC [facility] Administration Sodium Chloride 10 ml 02/15/19 22:00 02/17/19 09:52 Sodium Chloride Flush Syringe 10 Ml IV 10 ml BID [facility] Administration Sodium Chloride 10 ml 02/15/19 15:27 Sodium Chloride Flush Syringe 10 Ml IV PRN PRN LINE FLUSH
[2019-02-18] MEDS: GABAPENTIN 100 MG CAP PO SCH ×3 (06:30→22:05)
--- NOTE | 2019-02-18 08:17 | Progress Note ---
Subjective Date of service: 02/18/19 Principal diagnosis: end-stage renal disease with MSSA bacteremia Interval history: patient with infected permcath removed yesterday patient with no complaints blood cultures pending will likely place temporary vascath tomorrow while final cultures pending NPO p MN Objective - Constitutional Vitals: Vital Signs - 12hr 02/17/19 02/17/19 02/17/19 20:22 20:57 22:00 Temperature 98.6 F Pulse Rate 87 87 Respiratory 18 Rate Blood Pressure 113/69 O2 Sat by Pulse 97 95 Oximetry 02/18/19 02/18/19 02:32 07:34 Temperature 98.3 F 97.9 F Pulse Rate 96 H 89 Respiratory 18 20 Rate Blood Pressure 134/75 121/77 O2 Sat by Pulse 93 97 Oximetry - Labs CBC & Chem 7: 02/16/19 04:25 02/17/19 05:54 Medications & Allergies - Medications Allergies/Adverse Reactions: Allergies No Known Allergies Allergy (Verified 08/27/18 16:19) Home Medications: Home Medications Medication Instructions Recorded Confirmed Last Taken Type Epoetin Jeramy 10,000 Unit [Procrit] 10,000 unit IV TUTHSA vial 12/19/18 02/16/19 Unknown Rx Gabapentin 100 mg PO Q8HR 30 Days #90 capsule 12/19/18 02/16/19 Unknown Rx Polyethylene Glycol 3350 [Miralax 17 gm PO QDAY 30 Days powd.pack 12/19/18 02/16/19 Unknown Rx 3350] Sevelamer Carbonate [Renvela] 2,400 mg PO AC 30 Days tablet 12/19/18 02/16/19 Unknown Rx amLODIPine 7.5 mg PO QDAY 30 Days #45 tablet 12/19/18 02/16/19 Unknown Rx oxyCODONE /ACETAMINOPHEN [Percocet 1 tab PO BID PRN #20 tablet 12/19/18 02/16/19 Unknown Rx 5/325 mg] AtorvaSTATin [Lipitor] 20 mg PO QHS 01/05/19 02/16/19 Unknown History Pantoprazole [Protonix TAB] 40 mg PO DAILY #30 tablet 01/08/19 02/16/19 Unknown Rx Active Medications: Generic Name Dose Route Start Last Admin Trade Name Freq PRN Reason Stop Dose Admin Acetaminophen 650 mg 02/15/19 15:27 Tylenol PO Q4H PRN Pain MILD(1-3)/Fever >100.5/NEIL Albuterol 2.5 mg 02/15/19 15:27 Proventil IH Q4HRT PRN Shortness Of Breath Amlodipine Besylate 7.5 mg 02/16/19 10:00 02/17/19 09:51 Amlodipine PO 7.5 mg QDAY ISABELLA Administration Atorvastatin Calcium 20 mg 02/15/19 22:00 02/17/19 22:27 Lipitor PO 20 mg QHS ISABELLA Administration Epoetin Jeramy 10,000 unit 02/16/19 20:15 02/17/19 02:26 Procrit IV Not Given TUTHSA ISABELLA Gabapentin 100 mg 02/15/19 22:00 02/18/19 06:30 Gabapentin PO 100 mg Q8HR ISABELLA Administration Heparin Sodium (Porcine) 1,000 unit 02/16/19 11:00 Heparin 10,000 Units/10 Ml IV SISSY PRN hemodialysis Heparin Sodium (Porcine) 5,000 unit 02/16/19 11:00 Heparin IV SISSY PRN hemodialysis Heparin Sodium (Porcine) 5,000 unit 02/16/19 22:00 02/17/19 22:28 Heparin SUB-Q 5,000 unit Q12HR ISABELLA Administration Sodium Chloride 100 mls @ 999 mls/hr 02/16/19 11:00 Nacl 0.9% IV SISSY PRN Hypotension Cefazolin Sodium 2 gm/ Sodium 100 mls @ 200 mls/hr 02/17/19 15:00 02/17/19 15:02 Chloride IV 200 mls/hr Q24H ISABELLA Administration Protocol Ondansetron HCl 4 mg 02/15/19 15:27 Zofran IV Q8H PRN Nausea And Vomiting Oxycodone/Acetaminophen 1 tab 02/15/19 20:15 Percocet 5/325 PO BID PRN Pain, Moderate (4-6) Pantoprazole Sodium 40 mg 02/16/19 10:00 02/17/19 09:50 Protonix PO 40 mg DAILY ISABELLA Administration Polyethylene Glycol 17 gm 02/16/19 10:00 02/17/19 09:51 Miralax 3350 PO 17 gm QDAY ISABELLA Administration Sevelamer Carbonate 2,400 mg 02/16/19 07:30 02/17/19 18:29 Renvela PO 2,400 mg AC ISABELLA Administration Sodium Chloride 10 ml 02/15/19 22:00 02/17/19 22:27 Sodium Chloride Flush Syringe 10 Ml IV 10 ml BID ISABELLA Administration Sodium Chloride 10 ml 02/15/19 15:27 Sodium Chloride Flush Syringe 10 Ml IV PRN PRN LINE FLUSH
[2019-02-18] MEDS: PANTOPRAZOLE 40 MG TAB PO SCH (09:20)
[2019-02-18] MEDS: SEVELAMER CARBONATE 800 MG TAB PO SCH ×3 (09:20→18:12)
[2019-02-18] MEDS: amLODIPine 5 MG TAB PO SCH (09:20)
[2019-02-18] MEDS: POLYETHYLENE GLYCOL 3350 17 GM POWDER PO SCH (09:20)
[2019-02-18] MEDS: HEPARIN 5,000 UNIT/1 ML VIAL SUB-Q SCH ×2 (09:21→22:05)
--- NOTE | 2019-02-18 11:18 | Progress Note ---
Assessment and Plan Assessment and plan: Acute and chronic respiratory failure Admitted to [facility] supplemental oxygen, nebulizer therapy, pulse oximetry, ABG, NIPPV as clinically indicated. Sepsis due to Gram pos cocci, MSSA Dialysis catheter removed Bacteremia with Gram pos cocci Consulted ID Physician, following History of Septic embolism ESRD (end stage renal disease) Nephrology consulted, following, dialysis as per renal team. monitor uop q shift, avoid nephrotoxic agents, Advance care planning Pt is full code, Diagnosis education conducted, Pt acknowledges understanding and agreement with care plan. DVT prophylaxis SCD to BLE whlile in bed, History Interval history: Less shortness of breath Fatigue Hospitalist Physical - Physical exam Narrative exam: Gen: Not in acute distress, lying in bed, HEENT: Normocephalic, atraumatic Neck: supple, no JVD Heart: S1 and S2 reg, no murmurs, rubs or gallop Lungs: clear to auscultation bilaterally, no crackles Abd: soft, NT, non distended, normal BS Ext: No edema, no clubbing, no cyanosis Neuro:Awake,alert, moves all ext - Constitutional Vitals: Temp Pulse Resp BP Pulse Ox 97.9 F 89 20 121/77 97 02/18/19 07:34 02/18/19 07:34 02/18/19 07:34 02/18/19 07:34 02/18/19 07:34 General appearance: Present: no acute distress, other (Left chest permacath with old blood surrounding the exit site however no evidence of purulence or erythema) Results - Labs CBC & Chem 7: 02/16/19 04:25 02/17/19 05:54 Labs: Laboratory Last Values WBC 6.9 K/mm3 (4.5-11.0) 02/16/19 04:25 RBC 3.50 M/mm3 (3.65-5.03) L 02/16/19 04:25 Hgb 9.4 gm/dl (11.8-15.2) L 02/16/19 04:25 Hct 29.0 % (35.5-45.6) L 02/16/19 04:25 MCV 83 fl (84-94) L 02/16/19 04:25 MCH 27 pg (28-32) L 02/16/19 04:25 MCHC 32 % (32-34) 02/16/19 04:25 RDW 18.3 % (13.2-15.2) H 02/16/19 04:25 Plt Count 144 K/mm3 (140-440) 02/16/19 04:25 Lymph % (Auto) 15.9 % (13.4-35.0) 02/16/19 04:25 [place] % (Auto) 12.0 % (0.0-7.3) H 02/16/19 04:25 Eos % (Auto) 1.1 % (0.0-4.3) 02/16/19 04:25 Baso % (Auto) 0.5 % (0.0-1.8) 02/16/19 04:25 Lymph # 1.1 K/mm3 (1.2-5.4) L 02/16/19 04:25 [place] # 0.8 K/mm3 (0.0-0.8) 02/16/19 04:25 Eos # 0.1 K/mm3 (0.0-0.4) 02/16/19 04:25 Baso # 0.0 K/mm3 (0.0-0.1) 02/16/19 04:25 Seg Neutrophils % 70.5 % (40.0-70.0) H 02/16/19 04:25 Seg Neutrophils # 4.8 K/mm3 (1.8-7.7) 02/16/19 04:25 PT 17.6 Sec. (12.2-14.9) H 02/15/19 09:47 INR 1.42 (0.87-1.13) H 02/15/19 09:47 POC ABG pH 7.415 (7.35-7.45) 02/15/19 11:21 POC ABG pCO2 47.3 (35-45) H 02/15/19 11:21 POC ABG pO2 55 (80-105) L 02/15/19 11:21 POC ABG HCO3 30.3 (22-26 mml/L) 02/15/19 11:21 POC ABG Total CO2 32 (23-27mmol/L) 02/15/19 11:21 POC ABG O2 Sat 88 02/15/19 11:21 POC ABG Base Excess 6 ((-2) - (+3)mmol/L) 02/15/19 11:21 VBG pH 7.424 (7.320-7.420) H 02/15/19 09:47 FiO2 21 % 02/15/19 11:21 Sodium 137 mmol/L (137-145) 02/17/19 05:54 Potassium 3.7 mmol/L (3.6-5.0) D 02/17/19 05:54 Chloride 95.2 mmol/L (98-107) L 02/17/19 05:54 Carbon Dioxide 23 mmol/L (22-30) 02/17/19 05:54 Anion Gap 23 mmol/L 02/17/19 05:54 BUN 40 mg/dL (9-20) H 02/17/19 05:54 Creatinine 5.7 mg/dL (0.8-1.5) H 02/17/19 05:54 Estimated GFR 12 ml/min 02/17/19 05:54 BUN/Creatinine Ratio 7 % 02/17/19 05:54 Glucose 111 mg/dL (75-100) H 02/17/19 05:54 Lactic Acid 1.00 mmol/L (0.7-2.0) 02/15/19 14:31 Calcium 9.5 mg/dL (8.4-10.2) 02/17/19 05:54 Total Bilirubin 0.50 mg/dL (0.1-1.2) 02/16/19 04:25 AST 29 units/L (5-40) 02/16/19 04:25 ALT 6 units/L (7-56) L 02/16/19 04:25 Alkaline Phosphatase 115 units/L (35-129) 02/16/19 04:25 Ammonia 41.0 umol/L (25-60) 02/15/19 14:31 Total Protein 8.2 g/dL (6.3-8.2) 02/16/19 04:25 Albumin 2.7 g/dL (3.9-5) L 02/16/19 04:25 Albumin/Globulin Ratio 0.5 % 02/16/19 04:25 Random Vancomycin 10.5 ug/mL (0-40.0) 02/17/19 05:54 Hepatitis A IgM Ab Non-reactive (NonReactive) 02/15/19 13:16 Hep Bs Antigen Non-reactive (Negative) 02/15/19 13:16 Hep B Core IgM Ab Non-reactive (NonReactive) 02/15/19 13:16 Hepatitis C Antibody Non-reactive (NonReactive) 02/15/19 13:16 Active Medications - Current Medications Current Medications: Generic Name Dose Route Start Last Admin Trade Name Freq PRN Reason Stop Dose Admin Acetaminophen 650 mg 02/15/19 15:27 Tylenol PO Q4H PRN Pain MILD(1-3)/Fever >100.5/NEIL Albuterol 2.5 mg 02/15/19 15:27 Proventil IH Q4HRT PRN Shortness Of Breath Amlodipine Besylate 7.5 mg 02/16/19 10:00 02/18/19 09:20 Amlodipine PO 7.5 mg QDAY ISABELLA Administration Atorvastatin Calcium 20 mg 02/15/19 22:00 02/17/19 22:27 Lipitor PO 20 mg QHS ISABELLA Administration Epoetin Jeramy 10,000 unit 02/16/19 20:15 02/17/19 02:26 Procrit IV Not Given [facility] Gabapentin 100 mg 02/15/19 22:00 02/18/19 06:30 Gabapentin PO 100 mg Q8HR ISABELLA Administration Heparin Sodium (Porcine) 1,000 unit 02/16/19 11:00 Heparin 10,000 Units/10 Ml IV SISSY PRN hemodialysis Heparin Sodium (Porcine) 5,000 unit 02/16/19 11:00 Heparin IV SISSY PRN hemodialysis Heparin Sodium (Porcine) 5,000 unit 02/16/19 22:00 02/18/19 09:21 Heparin SUB-Q 5,000 unit Q12HR ISABELLA Administration Sodium Chloride 100 mls @ 999 mls/hr 02/16/19 11:00 Nacl 0.9% IV SISSY PRN Hypotension Cefazolin Sodium 1 gm in 50 mls @ 100 mls/hr 02/18/19 18:00 Ancef/Ns 1 Gm/50 Ml IV QPM [facility] Ondansetron HCl 4 mg 02/15/19 15:27 Zofran IV Q8H PRN Nausea And Vomiting Oxycodone/Acetaminophen 1 tab 02/15/19 20:15 Percocet 5/325 PO BID PRN Pain, Moderate (4-6) Pantoprazole Sodium 40 mg 02/16/19 10:00 02/18/19 09:20 Protonix PO 40 mg DAILY ISABELLA Administration Polyethylene Glycol 17 gm 02/16/19 10:00 02/18/19 09:20 Miralax 3350 PO 17 gm QDAY ISABELLA Administration Sevelamer Carbonate 2,400 mg 02/16/19 07:30 02/18/19 09:20 Renvela PO 2,400 mg AC ISABELLA Administration Sodium Chloride 10 ml 02/15/19 22:00 02/18/19 09:21 Sodium Chloride Flush Syringe 10 Ml IV 10 ml BID ISABELLA Administration Sodium Chloride 10 ml 02/15/19 15:27 Sodium Chloride Flush Syringe 10 Ml IV PRN PRN LINE FLUSH
--- NOTE | 2019-02-18 12:06 | Progress Note ---
Assessment and Plan Cultures Blood culture 02/15/17 MSSA Assessment: 73 yo M PMHx MSSA bacteremia and infected septic emboli (s/p 6 weeks cefazolin), HTN, afib/a flutter, ESRd on HD admitted with S aureus bacteremia 1. MSSA bacteremia - source is likely dialysis line. Line removed, ok to replace a permanent line when cultures negative x48 hours. Needs TTE 2. Hx of septic emboli - complaining of SOB, imaging shows septic emboli not worse than previous, though with new bacteremia concern they could yet still become worse. 3. ESRD on HD - renally dose antibiotics. 4. HTN Recs: - cefazolin 2g q24h. - ok for replacement line after 48 hours of negative cultures - ordered TTE - ordered cultures post-line removal. - will need 4 weeks of cefazolin with dialysis. Thank you for the consult, we will continue to follow. [facility] ([facility]) M: [phone] O: [phone] F: [phone] Subjective Date of service: 02/18/19 Principal diagnosis: end-stage renal disease with MSSA bacteremia Interval history: Afwebrile, normal white count. No change. MSSA in blood. Objective - Exam Narrative Exam: General Normal appearance, well developed, no acute distress Eyes - PERRLA, EOM intact ENT - Moist mucous membranes, no lymphadenopathy Neck - No noticeable or palpable swelling, redness or rash around throat or on face Lymph Nodes - No lymphadenopathy Cardiovascular - RRR no m/r/g, no JVD, no carotid bruits Lungs - Clear to auscultation, no use of accessory muscles, no crackles or wheezes. Skin - No rashes, skin warm and dry, no erythematous areas Abdomen - Normal bowel sounds, abdomen soft and nontender Extremities - No edema, cyanosis or clubbing Musculoskeletal - 5/5 strength, normal range of motion, no swollen or erythematous joints. Neurological Alert and oriented x 3, CN 2-12 grossly intact. - Constitutional Vitals: Vital Signs Temp Pulse Resp BP Pulse Ox 97.9 F 89 20 121/77 97 02/18/19 07:34 02/18/19 07:34 02/18/19 07:34 02/18/19 07:34 02/18/19 07:34 Temperature -Last 24 Hours Temperature 97.9 F Temperature 98.3 F Temperature 98.6 F Temperature 98.0 F - Labs CBC & Chem 7: 02/16/19 04:25 02/17/19 05:54
[2019-02-18] MEDS ORDERED: SODIUM CHLORIDE 0.9% 100 ML IV PRN ×2 (13:33→13:34)
--- NOTE | 2019-02-18 13:44 | Progress Note ---
Assessment and Plan Assessment and plan: Acute and chronic respiratory failure Admitted to [facility] Unit supplemental oxygen, nebulizer therapy, pulse oximetry, ABG, NIPPV as clinically indicated. Sepsis due to MSSA Dialysis catheter removed Cefazolin iv as per ID Bacteremia with Gram pos cocci Consulted ID Physician, following History of Septic embolism ESRD (end stage renal disease) Nephrology consulted, following, dialysis as per renal team. monitor uop q shift, avoid nephrotoxic agents, Advance care planning Pt is full code, Diagnosis education conducted, Pt acknowledges understanding and agreement with care plan. DVT prophylaxis SCD to BLE whlile in bed, History Interval history: Less shortness of breath Fatigue Hospitalist Physical - Physical exam Narrative exam: Gen: Not in acute distress, lying in bed, HEENT: Normocephalic, atraumatic Neck: supple, no JVD Heart: S1 and S2 reg, no murmurs, rubs or gallop Lungs: clear to auscultation bilaterally, no crackles Abd: soft, NT, non distended, normal BS Ext: No edema, no clubbing, no cyanosis Neuro:Awake,alert, moves all ext - Constitutional Vitals: Temp Pulse Resp BP Pulse Ox 97.9 F 89 20 121/77 97 02/18/19 07:34 02/18/19 10:00 02/18/19 07:34 02/18/19 07:34 02/18/19 07:34 General appearance: Present: no acute distress, other (Left chest permacath with old blood surrounding the exit site however no evidence of purulence or erythema) Results - Labs CBC & Chem 7: 02/16/19 04:25 02/17/19 05:54 Labs: Laboratory Last Values WBC 6.9 K/mm3 (4.5-11.0) 02/16/19 04:25 RBC 3.50 M/mm3 (3.65-5.03) L 02/16/19 04:25 Hgb 9.4 gm/dl (11.8-15.2) L 02/16/19 04:25 Hct 29.0 % (35.5-45.6) L 02/16/19 04:25 MCV 83 fl (84-94) L 02/16/19 04:25 MCH 27 pg (28-32) L 02/16/19 04:25 MCHC 32 % (32-34) 02/16/19 04:25 RDW 18.3 % (13.2-15.2) H 02/16/19 04:25 Plt Count 144 K/mm3 (140-440) 02/16/19 04:25 Lymph % (Auto) 15.9 % (13.4-35.0) 02/16/19 04:25 [place] % (Auto) 12.0 % (0.0-7.3) H 02/16/19 04:25 Eos % (Auto) 1.1 % (0.0-4.3) 02/16/19 04:25 Baso % (Auto) 0.5 % (0.0-1.8) 02/16/19 04:25 Lymph # 1.1 K/mm3 (1.2-5.4) L 02/16/19 04:25 [place] # 0.8 K/mm3 (0.0-0.8) 02/16/19 04:25 Eos # 0.1 K/mm3 (0.0-0.4) 02/16/19 04:25 Baso # 0.0 K/mm3 (0.0-0.1) 02/16/19 04:25 Seg Neutrophils % 70.5 % (40.0-70.0) H 02/16/19 04:25 Seg Neutrophils # 4.8 K/mm3 (1.8-7.7) 02/16/19 04:25 PT 17.6 Sec. (12.2-14.9) H 02/15/19 09:47 INR 1.42 (0.87-1.13) H 02/15/19 09:47 POC ABG pH 7.415 (7.35-7.45) 02/15/19 11:21 POC ABG pCO2 47.3 (35-45) H 02/15/19 11:21 POC ABG pO2 55 (80-105) L 02/15/19 11:21 POC ABG HCO3 30.3 (22-26 mml/L) 02/15/19 11:21 POC ABG Total CO2 32 (23-27mmol/L) 02/15/19 11:21 POC ABG O2 Sat 88 02/15/19 11:21 POC ABG Base Excess 6 ((-2) - (+3)mmol/L) 02/15/19 11:21 VBG pH 7.424 (7.320-7.420) H 02/15/19 09:47 FiO2 21 % 02/15/19 11:21 Sodium 137 mmol/L (137-145) 02/17/19 05:54 Potassium 3.7 mmol/L (3.6-5.0) D 02/17/19 05:54 Chloride 95.2 mmol/L (98-107) L 02/17/19 05:54 Carbon Dioxide 23 mmol/L (22-30) 02/17/19 05:54 Anion Gap 23 mmol/L 02/17/19 05:54 BUN 40 mg/dL (9-20) H 02/17/19 05:54 Creatinine 5.7 mg/dL (0.8-1.5) H 02/17/19 05:54 Estimated GFR 12 ml/min 02/17/19 05:54 BUN/Creatinine Ratio 7 % 02/17/19 05:54 Glucose 111 mg/dL (75-100) H 02/17/19 05:54 Lactic Acid 1.00 mmol/L (0.7-2.0) 02/15/19 14:31 Calcium 9.5 mg/dL (8.4-10.2) 02/17/19 05:54 Total Bilirubin 0.50 mg/dL (0.1-1.2) 02/16/19 04:25 AST 29 units/L (5-40) 02/16/19 04:25 ALT 6 units/L (7-56) L 02/16/19 04:25 Alkaline Phosphatase 115 units/L (35-129) 02/16/19 04:25 Ammonia 41.0 umol/L (25-60) 02/15/19 14:31 Total Protein 8.2 g/dL (6.3-8.2) 02/16/19 04:25 Albumin 2.7 g/dL (3.9-5) L 02/16/19 04:25 Albumin/Globulin Ratio 0.5 % 02/16/19 04:25 Random Vancomycin 10.5 ug/mL (0-40.0) 02/17/19 05:54 Hepatitis A IgM Ab Non-reactive (NonReactive) 02/15/19 13:16 Hep Bs Antigen Non-reactive (Negative) 02/15/19 13:16 Hep B Core IgM Ab Non-reactive (NonReactive) 02/15/19 13:16 Hepatitis C Antibody Non-reactive (NonReactive) 02/15/19 13:16 Active Medications - Current Medications Current Medications: Generic Name Dose Route Start Last Admin Trade Name Freq PRN Reason Stop Dose Admin Acetaminophen 650 mg 02/15/19 15:27 Tylenol PO Q4H PRN Pain MILD(1-3)/Fever >100.5/NEIL Albuterol 2.5 mg 02/15/19 15:27 Proventil IH Q4HRT PRN Shortness Of Breath Amlodipine Besylate 7.5 mg 02/16/19 10:00 02/18/19 09:20 Amlodipine PO 7.5 mg QDAY ISABELLA Administration Atorvastatin Calcium 20 mg 02/15/19 22:00 02/17/19 22:27 Lipitor PO 20 mg QHS ISABELLA Administration Epoetin Jeramy 10,000 unit 02/16/19 20:15 02/17/19 02:26 Procrit IV Not Given [facility] Gabapentin 100 mg 02/15/19 22:00 02/18/19 13:28 Gabapentin PO 100 mg Q8HR ISABELLA Administration Heparin Sodium (Porcine) 1,000 unit 02/16/19 11:00 Heparin 10,000 Units/10 Ml IV SISSY PRN hemodialysis Heparin Sodium (Porcine) 5,000 unit 02/16/19 11:00 Heparin IV SISSY PRN hemodialysis Heparin Sodium (Porcine) 5,000 unit 02/16/19 22:00 02/18/19 09:21 Heparin SUB-Q 5,000 unit Q12HR ISABELLA Administration Sodium Chloride 100 mls @ 999 mls/hr 02/16/19 11:00 Nacl 0.9% IV SISSY PRN Hypotension Cefazolin Sodium 1 gm in 50 mls @ 100 mls/hr 02/18/19 18:00 Ancef/Ns 1 Gm/50 Ml IV QPM ISABELLA Sodium Chloride 100 mls @ 999 mls/hr 02/18/19 13:33 Nacl 0.9% IV SISSY PRN Hypotension Sodium Chloride 100 mls @ 999 mls/hr 02/18/19 13:34 Nacl 0.9% IV SISSY PRN Hypotension Ondansetron HCl 4 mg 02/15/19 15:27 Zofran IV Q8H PRN Nausea And Vomiting Oxycodone/Acetaminophen 1 tab 02/15/19 20:15 Percocet 5/325 PO BID PRN Pain, Moderate (4-6) Pantoprazole Sodium 40 mg 02/16/19 10:00 02/18/19 09:20 Protonix PO 40 mg DAILY ISAEBLLA Administration Polyethylene Glycol 17 gm 02/16/19 10:00 02/18/19 09:20 Miralax 3350 PO 17 gm QDAY ISABELLA Administration Sevelamer Carbonate 2,400 mg 02/16/19 07:30 02/18/19 13:28 Renvela PO 2,400 mg AC ISABELLA Administration Sodium Chloride 10 ml 02/15/19 22:00 02/18/19 09:21 Sodium Chloride Flush Syringe 10 Ml IV 10 ml BID ISABELLA Administration Sodium Chloride 10 ml 02/15/19 15:27 Sodium Chloride Flush Syringe 10 Ml IV PRN PRN LINE FLUSH
[2019-02-18] MEDS: ceFAZolin/NS 1 GM/50 ML 1 GM/50 ML BAG IV SCH (18:12)
--- NOTE | 2019-02-18 19:12 | Progress Note ---
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 Has MSSA bacteremia. Repeat blood cultures February 17 1 of 2 already growing gram-positive cocci. I agree with workup for endocarditis. Continue antibiotics per infectious disease (2) Altered mental status Current Visit: No Status: Acute Plan to address problem: Toxic encephalopathy. Consider MRI of the head if mental status not improving. (3) Anemia in CKD (chronic kidney disease) Current Visit: No Status: Acute Qualifiers: Chronic kidney disease stage: stage 5, not on chronic dialysis Qualified C ode(s): N18.5 - Chronic kidney disease, stage 5; D63.1 - Anemia in chronic kidney disease Plan to address problem: Give erythropoietin on dialysis (4) Hyperkalemia Current Visit: No Status: Acute Plan to address problem: Potassium has improved. Monitor potassium daily 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 chronic kidney disease or end stage renal disease Current Visit: No Status: Acute Plan to address problem: Follow blood pressure on current medications (6) ESRD (end stage renal disease) Current Visit: No Status: Chronic Plan to address problem: Evaluating him for hemodialysis on a daily basis. For temporary dialysis catheter/Vas-Cath in the morning. Hemodialysis tomorrow and then on Friday and then probably discontinue Vas-Cath to have another line holiday (7) Hyponatremia Current Visit: Yes Status: Acute Plan to address problem: Hemodialysis for fluid removal. Reevaluate Subjective Date of service: 02/18/19 Principal diagnosis: end-stage renal disease with MSSA bacteremia Interval history: Patient seen lying in bed, at bedside. Patient is confused and is still not sure where he is Objective - Exam Narrative Exam: Frail elderly -[place] male lying in bed in no acute distress HEENT: NCAT, pink oral mucous membrane Neck: Supple, no venous distention CVS: S1S2 RRR with no murmur, rub or gallop Chest: Clear to auscultation Abdomen: Protuberant, soft, nontender, no organomegaly, bowel sounds are present Extremities: Muscle wasting, No edema Genitourinary deferred Neuro: Awake, looks dull, no focal deficits - Vital Signs Vital signs: Vital Signs - 12hr 02/18/19 02/18/19 02/18/19 07:34 10:00 14:03 Temperature 97.9 F 97.5 F L Pulse Rate 89 89 117 H Respiratory 20 20 Rate Blood Pressure 121/77 140/89 O2 Sat by Pulse 97 92 Oximetry - Lab 02/16/19 04:25 02/17/19 05:54 Most recent lab results Calcium 9.5 mg/dL (8.4-10.2) 02/17/19 05:54 Medications & Allergies - Medications Allergies/Adverse Reactions: Allergies No Known Allergies Allergy (Verified 08/27/18 16:19) Home Medications: Home Medications Medication Instructions Recorded Confirmed Last Taken Type Epoetin Jeramy 10,000 Unit [Procrit] 10,000 unit IV TUTHSA vial 12/19/18 02/16/19 Unknown Rx Gabapentin 100 mg PO Q8HR 30 Days #90 capsule 12/19/18 02/16/19 Unknown Rx Polyethylene Glycol 3350 [Miralax 17 gm PO QDAY 30 Days powd.pack 12/19/18 02/16/19 Unknown Rx 3350] Sevelamer Carbonate [Renvela] 2,400 mg PO AC 30 Days tablet 12/19/18 02/16/19 Unknown Rx amLODIPine 7.5 mg PO QDAY 30 Days #45 tablet 12/19/18 02/16/19 Unknown Rx oxyCODONE /ACETAMINOPHEN [Percocet 1 tab PO BID PRN #20 tablet 12/19/18 02/16/19 Unknown Rx 5/325 mg] AtorvaSTATin [Lipitor] 20 mg PO QHS 01/05/19 02/16/19 Unknown History Pantoprazole [Protonix TAB] 40 mg PO DAILY #30 tablet 01/08/19 02/16/19 Unknown Rx Active Medications: Generic Name Dose Route Start Last Admin Trade Name Freq PRN Reason Stop Dose Admin Acetaminophen 650 mg 02/15/19 15:27 Tylenol PO Q4H PRN Pain MILD(1-3)/Fever >100.5/NIEL Albuterol 2.5 mg 02/15/19 15:27 Proventil IH Q4HRT PRN Shortness Of Breath Amlodipine Besylate 7.5 mg 02/16/19 10:00 02/18/19 09:20 Amlodipine PO 7.5 mg QDAY ISABELLA Administration Atorvastatin Calcium 20 mg 02/15/19 22:00 02/17/19 22:27 Lipitor PO 20 mg QHS ISABELLA Administration Epoetin Jeramy 10,000 unit 02/16/19 20:15 02/17/19 02:26 Procrit IV Not Given TUTHSA IASBELLA Gabapentin 100 mg 02/15/19 22:00 02/18/19 13:28 Gabapentin PO 100 mg Q8HR ISABELLA Administration Heparin Sodium (Porcine) 1,000 unit 02/16/19 11:00 Heparin 10,000 Units/10 Ml IV SISSY PRN hemodialysis Heparin Sodium (Porcine) 5,000 unit 02/16/19 11:00 Heparin IV SISSY PRN hemodialysis Heparin Sodium (Porcine) 5,000 unit 02/16/19 22:00 02/18/19 09:21 Heparin SUB-Q 5,000 unit Q12HR ISABELLA Administration Sodium Chloride 100 mls @ 999 mls/hr 02/16/19 11:00 Nacl 0.9% IV SISSY PRN Hypotension Cefazolin Sodium 1 gm in 50 mls @ 100 mls/hr 02/18/19 18:00 02/18/19 18:12 Ancef/Ns 1 Gm/50 Ml IV 100 mls/hr QPM ISABELLA Administration Sodium Chloride 100 mls @ 999 mls/hr 02/18/19 13:33 Nacl 0.9% IV SISSY PRN Hypotension Sodium Chloride 100 mls @ 999 mls/hr 02/18/19 13:34 Nacl 0.9% IV SISSY PRN Hypotension Ondansetron HCl 4 mg 02/15/19 15:27 Zofran IV Q8H PRN Nausea And Vomiting Oxycodone/Acetaminophen 1 tab 02/15/19 20:15 Percocet 5/325 PO BID PRN Pain, Moderate (4-6) Pantoprazole Sodium 40 mg 02/16/19 10:00 02/18/19 09:20 Protonix PO 40 mg DAILY ISABELLA Administration Polyethylene Glycol 17 gm 02/16/19 10:00 02/18/19 09:20 Miralax 3350 PO 17 gm QDAY ISABELLA Administration Sevelamer Carbonate 2,400 mg 02/16/19 07:30 02/18/19 18:12 Renvela PO 2,400 mg AC ISABELLA Administration Sodium Chloride 10 ml 02/15/19 22:00 02/18/19 09:21 Sodium Chloride Flush Syringe 10 Ml IV 10 ml BID ISABELLA Administration Sodium Chloride 10 ml 02/15/19 15:27 Sodium Chloride Flush Syringe 10 Ml IV PRN PRN LINE FLUSH
[2019-02-18 22:56] LABS: Hematocrit 30.5 % (35.5-45.6); Mean Corpuscular HGB Conc 33 % (32-34); Mean Corpuscular Volume 83 fl (84-94); Platelet Count 208 K/mm3 (140-440); Red Blood Count 3.68 M/mm3 (3.65-5.03); Red Cell Distribution Width 18.8 % (13.2-15.2)
[2019-02-18] MEDS: EPOETIN ALFA 10,000 UNIT/1 ML INJ IV SCH (23:05)
[2019-02-19 00:20] LABS: Basophils % (Manual) 0 % (0.0-1.8); Total Cells Counted 100
[2019-02-19 00:25] LABS: Platelet Estimate Consistent w Auto; Target Cells Few; Tear Drop Cells Rare
[2019-02-19] MEDS: GABAPENTIN 100 MG CAP PO SCH ×3 (05:11→23:51)
[2019-02-19] MEDS: SEVELAMER CARBONATE 800 MG TAB PO SCH ×3 (08:05→17:17)
[2019-02-19] MEDS ORDERED: HEPARIN/NS 5000 UNIT/500ML 500 ML IR ONE (08:15)
[2019-02-19] MEDS ORDERED: fentaNYL 100 MCG/2 ML INJ ONE (08:16)
[2019-02-19] MEDS ORDERED: MIDAZOLAM 2 MG/2 ML INJ ONE (08:16)
[2019-02-19] MEDS ORDERED: SODIUM CHLORIDE 0.9% 250ML 250 ML ONE ×2 (08:20→08:23)
[2019-02-19] MEDS: LIDOCAINE 1%/EPINEPHRINE 1:100,000 VIAL (20 ML) INFILTRATI ONE ×3 (09:12→23:56)
[2019-02-19] MEDS: HEPARIN 10,000 UNITS/10 ML VIAL ONE ×2 (09:35→09:36)
--- NOTE | 2019-02-19 09:56 | Post Operative Note ---
Pre-op diagnosis: ESRD Post-op diagnosis: same Procedure: 1. Left IJ Vascath Insertion 2. Monitored Conscious Sedation for 15 minutes Anesthesia: MAC, local Surgeon: VINICIUS HYATT Estimated blood loss: minimal Condition: stable Disposition: floor
--- NOTE | 2019-02-19 10:26 | Progress Note ---
Assessment and Plan Assessment and plan: Acute and chronic respiratory failure Admitted to [facility] supplemental oxygen, nebulizer therapy, pulse oximetry, ABG, NIPPV as clinically indicated. Sepsis due to MSSA Dialysis catheter removed Cefazolin iv as per ID Bacteremia with Gram pos cocci, MSSA Consulted ID Physician, following ID recommends Cefazolin iv till 03/18/19 History of Septic embolism ESRD (end stage renal disease) Nephrology consulted, following, dialysis as per renal team. monitor uop q shift, avoid nephrotoxic agents, Advance care planning Pt is full code, Diagnosis education conducted, Pt acknowledges understanding and agreement with care plan. DVT prophylaxis SCD to BLE whlile in bed, History Interval history: Less shortness of breath Fatigue Hospitalist Physical - Physical exam Narrative exam: Gen: Not in acute distress, lying in bed, HEENT: Normocephalic, atraumatic Neck: supple, no JVD Heart: S1 and S2 reg, no murmurs, rubs or gallop Lungs: clear to auscultation bilaterally, no crackles Abd: soft, NT, non distended, normal BS Ext: No edema, no clubbing, no cyanosis Neuro:Awake,alert, moves all ext - Constitutional Vitals: Temp Pulse Resp BP Pulse Ox 98.5 F 95 H 18 137/71 94 02/19/19 02:26 02/19/19 02:26 02/19/19 02:26 02/19/19 02:26 02/19/19 02:26 General appearance: Present: no acute distress, other (Left chest permacath with old blood surrounding the exit site however no evidence of purulence or erythema) Results - Labs CBC & Chem 7: 02/18/19 22:29 02/17/19 05:54 Labs: Laboratory Last Values WBC 7.0 K/mm3 (4.5-11.0) 02/18/19 22:29 RBC 3.68 M/mm3 (3.65-5.03) 02/18/19 22:29 Hgb 10.0 gm/dl (11.8-15.2) L 02/18/19 22:29 Hct 30.5 % (35.5-45.6) L 02/18/19 22:29 MCV 83 fl (84-94) L 02/18/19 22:29 MCH 27 pg (28-32) L 02/18/19 22:29 MCHC 33 % (32-34) 02/18/19 22:29 RDW 18.8 % (13.2-15.2) H 02/18/19 22:29 Plt Count 208 K/mm3 (140-440) 02/18/19 22:29 Lymph % (Auto) 15.9 % (13.4-35.0) 02/16/19 04:25 Thurston % (Auto) 12.0 % (0.0-7.3) H 02/16/19 04:25 Eos % (Auto) 1.1 % (0.0-4.3) 02/16/19 04:25 Baso % (Auto) 0.5 % (0.0-1.8) 02/16/19 04:25 Lymph # 1.1 K/mm3 (1.2-5.4) L 02/16/19 04:25 Thurston # 0.8 K/mm3 (0.0-0.8) 02/16/19 04:25 Eos # 0.1 K/mm3 (0.0-0.4) 02/16/19 04:25 Baso # 0.0 K/mm3 (0.0-0.1) 02/16/19 04:25 Add Manual Diff Complete 02/18/19 22:29 Total Counted 100 02/18/19 22:29 Seg Neutrophils % 70.5 % (40.0-70.0) H 02/16/19 04:25 Seg Neuts % (Manual) 70.0 % (40.0-70.0) 02/18/19 22:29 Band Neutrophils % 0 % 02/18/19 22:29 Lymphocytes % (Manual) 19.0 % (13.4-35.0) 02/18/19 22:29 Reactive Lymphs % (Man) 0 % 02/18/19 22:29 Monocytes % (Manual) 6.0 % (0.0-7.3) 02/18/19 22:29 Eosinophils % (Manual) 5.0 % (0.0-4.3) H 02/18/19 22:29 Basophils % (Manual) 0 % (0.0-1.8) 02/18/19 22:29 Metamyelocytes % 0 % 02/18/19 22:29 Myelocytes % 0 % 02/18/19 22:29 Promyelocytes % 0 % 02/18/19 22:29 Blast Cells % 0 % 02/18/19 22:29 Nucleated RBC % Not Reportable 02/18/19 22:29 Seg Neutrophils # 4.8 K/mm3 (1.8-7.7) 02/16/19 04:25 Seg Neutrophils # Man 4.9 K/mm3 (1.8-7.7) 02/18/19 22:29 Band Neutrophils # 0.0 K/mm3 02/18/19 22:29 Lymphocytes # (Manual) 1.3 K/mm3 (1.2-5.4) 02/18/19 22:29 Abs React Lymphs (Man) 0.0 K/mm3 02/18/19 22:29 Monocytes # (Manual) 0.4 K/mm3 (0.0-0.8) 02/18/19 22:29 Eosinophils # (Manual) 0.4 K/mm3 (0.0-0.4) 02/18/19 22:29 Basophils # (Manual) 0.0 K/mm3 (0.0-0.1) 02/18/19 22:29 Metamyelocytes # 0.0 K/mm3 02/18/19 22:29 Myelocytes # 0.0 K/mm3 02/18/19 22:29 Promyelocytes # 0.0 K/mm3 02/18/19 22:29 Blast Cells # 0.0 K/mm3 02/18/19 22:29 WBC Morphology Not Reportable 02/18/19 22:29 Hypersegmented Neuts Not Reportable 02/18/19 22:29 Hyposegmented Neuts Not Reportable 02/18/19 22:29 Hypogranular Neuts Not Reportable 02/18/19 22:29 Smudge Cells Not Reportable 02/18/19 22:29 Toxic Granulation Not Reportable 02/18/19 22:29 Toxic Vacuolation Not Reportable 02/18/19 22:29 Dohle Bodies Not Reportable 02/18/19 22:29 Pelger-Huet Anomaly Not Reportable 02/18/19 22:29 Fredi Rods Not Reportable 02/18/19 22:29 Platelet Estimate Consistent w auto 02/18/19 22:29 Clumped Platelets Not Reportable 02/18/19 22:29 Plt Clumps, EDTA Not Reportable 02/18/19 22:29 Large Platelets Not Reportable 02/18/19 22:29 Giant Platelets Not Reportable 02/18/19 22:29 Platelet Satelliting Not Reportable 02/18/19 22:29 Plt Morphology Comment Not Reportable 02/18/19 22:29 RBC Morphology Not Reportable 02/18/19 22:29 Dimorphic RBCs Not Reportable 02/18/19 22:29 Polychromasia Few 02/18/19 22:29 Hypochromasia Not Reportable 02/18/19 22:29 Poikilocytosis Not Reportable 02/18/19 22:29 Anisocytosis Not Reportable 02/18/19 22:29 Microcytosis Few 02/18/19 22:29 Macrocytosis Not Reportable 02/18/19 22:29 Spherocytes Not Reportable 02/18/19 22:29 Pappenheimer Bodies Not Reportable 02/18/19 22:29 Sickle Cells Not Reportable 02/18/19 22:29 Target Cells Few 02/18/19 22:29 Tear Drop Cells Rare 02/18/19 22:29 Ovalocytes Not Reportable 02/18/19 22:29 Helmet Cells Not Reportable 02/18/19 22:29 Monk-Remer Bodies Not Reportable 02/18/19 22:29 [place] Rings Not Reportable 02/18/19 22:29 [place] Cells Not Reportable 02/18/19 22:29 Bite Cells Not Reportable 02/18/19 22:29 Crenated Cell Not Reportable 02/18/19 22:29 Elliptocytes Not Reportable 02/18/19 22:29 Acanthocytes (Spur) Not Reportable 02/18/19 22:29 Rouleaux Not Reportable 02/18/19 22:29 Hemoglobin C Crystals Not Reportable 02/18/19 22:29 Schistocytes Not Reportable 02/18/19 22:29 Malaria parasites Not Reportable 02/18/19 22:29 Kolby Bodies Not Reportable 02/18/19 22:29 Hem Pathologist Commnt No 02/18/19 22:29 PT 17.6 Sec. (12.2-14.9) H 02/15/19 09:47 INR 1.42 (0.87-1.13) H 02/15/19 09:47 POC ABG pH 7.415 (7.35-7.45) 02/15/19 11:21 POC ABG pCO2 47.3 (35-45) H 02/15/19 11:21 POC ABG pO2 55 (80-105) L 02/15/19 11:21 POC ABG HCO3 30.3 (22-26 mml/L) 02/15/19 11:21 POC ABG Total CO2 32 (23-27mmol/L) 02/15/19 11:21 POC ABG O2 Sat 88 02/15/19 11:21 POC ABG Base Excess 6 ((-2) - (+3)mmol/L) 02/15/19 11:21 VBG pH 7.424 (7.320-7.420) H 02/15/19 09:47 FiO2 21 % 02/15/19 11:21 Sodium 137 mmol/L (137-145) 02/17/19 05:54 Potassium 3.7 mmol/L (3.6-5.0) D 02/17/19 05:54 Chloride 95.2 mmol/L (98-107) L 02/17/19 05:54 Carbon Dioxide 23 mmol/L (22-30) 02/17/19 05:54 Anion Gap 23 mmol/L 02/17/19 05:54 BUN 40 mg/dL (9-20) H 02/17/19 05:54 Creatinine 5.7 mg/dL (0.8-1.5) H 02/17/19 05:54 Estimated GFR 12 ml/min 02/17/19 05:54 BUN/Creatinine Ratio 7 % 02/17/19 05:54 Glucose 111 mg/dL (75-100) H 02/17/19 05:54 Lactic Acid 1.00 mmol/L (0.7-2.0) 02/15/19 14:31 Calcium 9.5 mg/dL (8.4-10.2) 02/17/19 05:54 Total Bilirubin 0.50 mg/dL (0.1-1.2) 02/16/19 04:25 AST 29 units/L (5-40) 02/16/19 04:25 ALT 6 units/L (7-56) L 02/16/19 04:25 Alkaline Phosphatase 115 units/L (35-129) 02/16/19 04:25 Ammonia 41.0 umol/L (25-60) 02/15/19 14:31 Total Protein 8.2 g/dL (6.3-8.2) 02/16/19 04:25 Albumin 2.7 g/dL (3.9-5) L 02/16/19 04:25 Albumin/Globulin Ratio 0.5 % 02/16/19 04:25 Random Vancomycin 10.5 ug/mL (0-40.0) 02/17/19 05:54 Hepatitis A IgM Ab Non-reactive (NonReactive) 02/15/19 13:16 Hep Bs Antigen Non-reactive (Negative) 02/15/19 13:16 Hep B Core IgM Ab Non-reactive (NonReactive) 02/15/19 13:16 Hepatitis C Antibody Non-reactive (NonReactive) 02/15/19 13:16 Active Medications - Current Medications Current Medications: Generic Name Dose Route Start Last Admin Trade Name Freq PRN Reason Stop Dose Admin Acetaminophen 650 mg 02/15/19 15:27 Tylenol PO Q4H PRN Pain MILD(1-3)/Fever >100.5/NEIL Albuterol 2.5 mg 02/15/19 15:27 Proventil IH Q4HRT PRN Shortness Of Breath Amlodipine Besylate 7.5 mg 02/16/19 10:00 02/18/19 09:20 Amlodipine PO 7.5 mg QDAY ISABELLA Administration Atorvastatin Calcium 20 mg 02/15/19 22:00 02/18/19 22:05 Lipitor PO 20 mg QHS [facility] Administration Epoetin Jeramy 10,000 unit 02/16/19 20:15 02/18/19 23:05 Procrit IV Not Given [facility] Gabapentin 100 mg 02/15/19 22:00 02/19/19 05:11 Gabapentin PO Not Given Q8HR [facility] Heparin Sodium (Porcine) 1,000 unit 02/16/19 11:00 Heparin 10,000 Units/10 Ml IV SISSY PRN hemodialysis Heparin Sodium (Porcine) 5,000 unit 02/16/19 11:00 Heparin IV SISSY PRN hemodialysis Heparin Sodium (Porcine) 5,000 unit 02/16/19 22:00 02/18/19 22:05 Heparin SUB-Q 5,000 unit Q12HR ISABELLA Administration Cefazolin Sodium 1 gm in 50 mls @ 100 mls/hr 02/18/19 18:00 02/18/19 18:12 Ancef/Ns 1 Gm/50 Ml IV 100 mls/hr QPM ISABELLA Administration Sodium Chloride 100 mls @ 999 mls/hr 02/18/19 13:33 Nacl 0.9% IV SISSY PRN Hypotension Sodium Chloride 100 mls @ 999 mls/hr 02/18/19 13:34 Nacl 0.9% IV SISSY PRN Hypotension Ondansetron HCl 4 mg 02/15/19 15:27 Zofran IV Q8H PRN Nausea And Vomiting Oxycodone/Acetaminophen 1 tab 02/15/19 20:15 Percocet 5/325 PO BID PRN Pain, Moderate (4-6) Pantoprazole Sodium 40 mg 02/16/19 10:00 02/18/19 09:20 Protonix PO 40 mg DAILY ISABELLA Administration Polyethylene Glycol 17 gm 02/16/19 10:00 02/18/19 09:20 Miralax 3350 PO 17 gm QDAY ISABELLA Administration Sevelamer Carbonate 2,400 mg 02/16/19 07:30 02/19/19 08:05 Renvela PO Not Given AC ISABELLA Sodium Chloride 10 ml 02/15/19 22:00 02/18/19 22:28 Sodium Chloride Flush Syringe 10 Ml IV 10 ml BID ISABELLA Administration Sodium Chloride 10 ml 02/15/19 15:27 Sodium Chloride Flush Syringe 10 Ml IV PRN PRN LINE FLUSH
[2019-02-19] MEDS: HEPARIN 5,000 UNIT/1 ML VIAL SUB-Q SCH ×2 (10:34→23:51)
--- NOTE | 2019-02-19 11:02 | Progress Note ---
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 Has MSSA bacteremia. Repeat blood cultures February 17 1 of 2 already growing gram-positive cocci. I agree with workup for endocarditis. Continue antibiotics per infectious disease (2) ESRD (end stage renal disease) Current Visit: No Status: Chronic Plan to address problem: More dialysis today and then again in morning. We'll discontinue vascular catheter after dialysis tomorrow and then patient over the Weekend for Longer Line Holiday. For new Permacath placement when cultures negative (3) Altered mental status Current Visit: No Status: Acute Plan to address problem: Toxic encephalopathy. Consider MRI of the head if mental status not improving. (4) Anemia in CKD (chronic kidney disease) Current Visit: No Status: Acute Qualifiers: Chronic kidney disease stage: stage 5, not on chronic dialysis Qualified Code(s): N18.5 - Chronic kidney disease, stage 5; D63.1 - Anemia in chronic kidney disease Plan to address problem: Give erythropoietin on dialysis (5) Hyperkalemia Current Visit: No Status: Acute Plan to address problem: Potassium has improved. Monitor potassium daily (6) Hypertensive chronic kidney disease with stage 5 chronic kidney disease or end stage renal disease Current Visit: No Status: Acute Plan to address problem: Follow blood pressure on current medications (7) Hyponatremia Current Visit: Yes Status: Acute Plan to address problem: Hemodialysis for fluid removal. Reevaluate Subjective Date of service: 02/19/19 Principal diagnosis: end-stage renal disease with MSSA bacteremia Interval history: Patient seen lying in bed, at dialysis. Just back from Vas-Cath placement. Patient is still drowsy. Objective - Exam Narrative Exam: Frail elderly -[place] male lying in bed in no acute distress HEENT: NCAT, pink oral mucous membrane Neck: Supple, no venous distention CVS: S1S2 RRR with no murmur, rub or gallop Chest: Clear to auscultation Abdomen: Protuberant, soft, nontender, no organomegaly, bowel sounds are present Extremities: Muscle wasting, No edema Genitourinary deferred Neuro: Drowsy, no focal deficits - Vital Signs Vital signs: Vital Signs - 12hr 02/18/19 02/19/19 23:50 02:26 Temperature 98.5 F Pulse Rate 96 H 95 H Respiratory 18 Rate Blood Pressure 137/71 O2 Sat by Pulse 94 Oximetry - Lab 02/18/19 22:29 02/17/19 05:54 Most recent lab results Calcium 9.5 mg/dL (8.4-10.2) 02/17/19 05:54 Medications & Allergies - Medications Allergies/Adverse Reactions: Allergies No Known Allergies Allergy (Verified 08/27/18 16:19) Home Medications: Home Medications Medication Instructions Recorded Confirmed Last Taken Type Epoetin Jeramy 10,000 Unit [Procrit] 10,000 unit IV TUTHSA vial 12/19/18 02/16/19 Unknown Rx Gabapentin 100 mg PO Q8HR 30 Days #90 capsule 12/19/18 02/16/19 Unknown Rx Polyethylene Glycol 3350 [Miralax 17 gm PO QDAY 30 Days powd.pack 12/19/18 02/16/19 Unknown Rx 3350] Sevelamer Carbonate [Renvela] 2,400 mg PO AC 30 Days tablet 12/19/18 02/16/19 Unknown Rx amLODIPine 7.5 mg PO QDAY 30 Days #45 tablet 12/19/18 02/16/19 Unknown Rx oxyCODONE /ACETAMINOPHEN [Percocet 1 tab PO BID PRN #20 tablet 12/19/18 02/16/19 Unknown Rx 5/325 mg] AtorvaSTATin [Lipitor] 20 mg PO QHS 01/05/19 02/16/19 Unknown History Pantoprazole [Protonix TAB] 40 mg PO DAILY #30 tablet 01/08/19 02/16/19 Unknown Rx Active Medications: Generic Name Dose Route Start Last Admin Trade Name Kurtq PRN Reason Stop Dose Admin Acetaminophen 650 mg 02/15/19 15:27 Tylenol PO Q4H PRN Pain MILD(1-3)/Fever >100.5/NEIL Albuterol 2.5 mg 02/15/19 15:27 Proventil IH Q4HRT PRN Shortness Of Breath Amlodipine Besylate 7.5 mg 02/16/19 10:00 02/18/19 09:20 Amlodipine PO 7.5 mg QDAY ISABELLA Administration Atorvastatin Calcium 20 mg 02/15/19 22:00 02/18/19 22:05 Lipitor PO 20 mg QHS ISABELLA Administration Epoetin Jeramy 10,000 unit 02/16/19 20:15 02/18/19 23:05 Procrit IV Not Given TUTHSA ISABELLA Gabapentin 100 mg 02/15/19 22:00 02/19/19 05:11 Gabapentin PO Not Given Q8HR ISABELLA Heparin Sodium (Porcine) 1,000 unit 02/16/19 11:00 Heparin 10,000 Units/10 Ml IV SISSY PRN hemodialysis Heparin Sodium (Porcine) 5,000 unit 02/16/19 11:00 Heparin IV SISSY PRN hemodialysis Heparin Sodium (Porcine) 5,000 unit 02/16/19 22:00 02/18/19 22:05 Heparin SUB-Q 5,000 unit Q12HR ISABELLA Administration Cefazolin Sodium 1 gm in 50 mls @ 100 mls/hr 02/18/19 18:00 02/18/19 18:12 Ancef/Ns 1 Gm/50 Ml IV 100 mls/hr QPM ISABELLA Administration Sodium Chloride 100 mls @ 999 mls/hr 02/18/19 13:33 Nacl 0.9% IV SISSY PRN Hypotension Sodium Chloride 100 mls @ 999 mls/hr 02/18/19 13:34 Nacl 0.9% IV SISSY PRN Hypotension Ondansetron HCl 4 mg 02/15/19 15:27 Zofran IV Q8H PRN Nausea And Vomiting Oxycodone/Acetaminophen 1 tab 02/15/19 20:15 Percocet 5/325 PO BID PRN Pain, Moderate (4-6) Pantoprazole Sodium 40 mg 02/16/19 10:00 02/18/19 09:20 Protonix PO 40 mg DAILY ISABELLA Administration Polyethylene Glycol 17 gm 02/16/19 10:00 02/18/19 09:20 Miralax 3350 PO 17 gm QDAY ISABELLA Administration Sevelamer Carbonate 2,400 mg 02/16/19 07:30 02/19/19 08:05 Renvela PO Not Given AC ISABELLA Sodium Chloride 10 ml 02/15/19 22:00 02/18/19 22:28 Sodium Chloride Flush Syringe 10 Ml IV 10 ml BID ISABELLA Administration Sodium Chloride 10 ml 02/15/19 15:27 Sodium Chloride Flush Syringe 10 Ml IV PRN PRN LINE FLUSH
--- NOTE | 2019-02-19 11:11 | Progress Note ---
Assessment and Plan Cultures Blood culture 02/15/19 MSSA Blood culture 02/17/19 MSSA Blood culture 02/18/19 pending Assessment: 73 yo M PMHx MSSA bacteremia and infected septic emboli (s/p 6 weeks cefazolin), HTN, afib/a flutter, ESRd on HD admitted with S aureus bacteremia 1. MSSA bacteremia - source is likely dialysis line. Line removed, ok to replace a permanent line when cultures negative x48 hours. Needs TTE 2. Hx of septic emboli - complaining of SOB, imaging shows septic emboli not worse than previous, though with new bacteremia concern they could yet still become worse. 3. ESRD on HD - renally dose antibiotics. 4. HTN Recs: - cefazolin 2g q24h. - Vas cath placed today. Ok for permanent line after 48 hours of negative cultures. - ordered TTE - done, pending read. - ordered cultures post-line removal (02/18/19) - will need 4 weeks of cefazolin (2-2-3g) with dialysis until 03/18/2019. Case management consult was placed 02/18/19. Thank you for the consult, we will continue to follow. [facility] M: [phone] O: [phone] F: [phone] Subjective Date of service: 02/19/19 Principal diagnosis: end-stage renal disease with MSSA bacteremia Interval history: Afwebrile, normal white count. No change. MSSA in blood. Objective - Exam Narrative Exam: General Normal appearance, well developed, no acute distress Eyes - PERRLA, EOM intact ENT - Moist mucous membranes, no lymphadenopathy Neck - No noticeable or palpable swelling, redness or rash around throat or on face Lymph Nodes - No lymphadenopathy Cardiovascular - RRR no m/r/g, no JVD, no carotid bruits Lungs - Clear to auscultation, no use of accessory muscles, no crackles or wheezes. Skin - No rashes, skin warm and dry, no erythematous areas Abdomen - Normal bowel sounds, abdomen soft and nontender Extremities - No edema, cyanosis or clubbing Musculoskeletal - 5/5 strength, normal range of motion, no swollen or erythematous joints. Neurological Alert and oriented x 3, CN 2-12 grossly intact. - Constitutional Vitals: Vital Signs Temp Pulse Resp BP Pulse Ox 98.5 F 95 H 18 137/71 94 02/19/19 02:26 02/19/19 02:26 02/19/19 02:26 02/19/19 02:26 02/19/19 02:26 Temperature -Last 24 Hours Temperature 98.5 F Temperature 97.4 F Temperature 97.5 F - Labs CBC & Chem 7: 02/18/19 22:29 02/17/19 05:54 Labs: Abnormal lab results 02/18/19 Range/Units 22:29 Hgb 10.0 L (11.8-15.2) gm/dl Hct 30.5 L (35.5-45.6) % MCV 83 L (84-94) fl MCH 27 L (28-32) pg RDW 18.8 H (13.2-15.2) % Eosinophils % (Manual) 5.0 H (0.0-4.3) %
--- NOTE | 2019-02-19 12:51 | Operative Report ---
STAFF SURGEON: Dr. Alex Reno. PREOPERATIVE DIAGNOSIS: End-stage renal disease. POSTOPERATIVE DIAGNOSIS: End-stage renal disease. PROCEDURE PERFORMED: 1. Left IJ Vas-Cath insertion. 2. Monitored conscious sedation for 15 minutes. COMPLICATIONS: None. ESTIMATED BLOOD LOSS: Less than 10 mL. ANESTHESIA: Local MAC. INDICATIONS FOR PROCEDURE: This is a 73-year-old gentleman who recently had his Perm-A-Cath removed secondary to an infected Perm-A-Cath. The patient is in need of dialysis access, but recent blood cultures were still positive and therefore temporary dialysis catheter was requested to be placed. The patient was explained the risks, benefits and alternatives of procedure, expressed understanding and wished to proceed. DESCRIPTION OF PROCEDURE: After appropriate consent was obtained, the patient was brought back to the lab support tech, placed on table in supine position. The left neck and chest were prepped and draped in the usual sterile fashion with ChloraPrep. Appropriate timeout was performed indicating correct patient, procedure, and site of procedure. We then began the intervention by obtaining percutaneous access of the left internal jugular vein using micropuncture technique under ultrasound guidance. Also obtained access, needle was exchanged for a micropuncture sheath using Seldinger technique, the stiff J-wire was then placed into the inferior vena cava. The micropuncture sheath was removed. The access site was thoroughly dilated appropriately. Then, a 20 cm Vas-Cath was then placed over the wire into the level of the SVC right atrial junction. The wire was removed. Both lumens neetu blood appropriately, were flushed with heparinized saline. Appropriate amount of heparin was placed in each port. Catheter was then sutured in place with 3-0 Ethilon suture. An appropriate dressing was placed. The patient tolerated the procedure well, emerged from the conscious sedation and was sent to recovery in stable condition. JOB# [id number] N/JAKE
[2019-02-19] MEDS: PANTOPRAZOLE 40 MG TAB PO SCH (15:12)
[2019-02-19] MEDS: amLODIPine 5 MG TAB PO SCH (15:13)
[2019-02-19] MEDS: POLYETHYLENE GLYCOL 3350 17 GM POWDER PO SCH (15:14)
[2019-02-19] MEDS: ceFAZolin/NS 1 GM/50 ML 1 GM/50 ML BAG IV SCH (17:28)
[2019-02-19 17:33] LABS: Calcium 8.9 mg/dL (8.4-10.2)
[2019-02-19] MEDS: ACETAMINOPHEN 325 MG TAB PO PRN (23:52)
[2019-02-20] MEDS: GABAPENTIN 100 MG CAP PO SCH ×3 (05:48→22:56)
--- NOTE | 2019-02-20 09:11 | Progress Note ---
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 Has MSSA bacteremia. Repeat blood cultures February 17 2 of 2 growing gram-positive cocci. agree with workup for endocarditis. Continue antibiotics per infectious disease (2) ESRD (end stage renal disease) Current Visit: No Status: Chronic Plan to address problem: HD again this morning. We'll discontinue vascular catheter after dialysis today and then patient over the Weekend for Longer Line Holiday. For new Per macath placement when cultures negative (3) Hypertensive chronic kidney disease with stage 5 chronic kidney disease or end stage renal disease Current Visit: No Status: Acute Plan to address problem: Follow blood pressure on current medications (4) Altered mental status Current Visit: No Status: Acute Plan to address problem: Toxic encephalopathy. improving (5) Anemia in CKD (chronic kidney disease) Current Visit: No Status: Acute Qualifiers: Chronic kidney disease stage: stage 5, not on chronic dialysis Qualified Code(s): N18.5 - Chronic kidney disease, stage 5; D63.1 - Anemia in chronic kidney disease Plan to address problem: Give erythropoietin on dialysis (6) Hyperkalemia Current Visit: No Status: Acute Plan to address problem: Potassium has improved. Monitor potassium daily (7) Hyponatremia Current Visit: Yes Status: Acute Plan to address problem: Hemodialysis for fluid removal. follow repeat BMP Subjective Date of service: 02/20/19 Principal diagnosis: end-stage renal disease with MSSA bacteremia Interval history: Patient awake, alert, in no acute distress Objective - Vital Signs Vital signs: Vital Signs - 12hr 02/19/19 02/19/19 02/19/19 22:00 23:45 23:52 Temperature Pulse Rate 99 H Respiratory 20 Rate Respiratory 20 Rate [ Generalized] Blood Pressure O2 Sat by Pulse 96 Oximetry 02/20/19 02/20/19 02/20/19 00:52 02:36 07:51 Temperature 98.5 F Pulse Rate 89 Respiratory 20 18 Rate Respiratory Rate [ Generalized] Blood Pressure 132/64 O2 Sat by Pulse 95 97 Oximetry 02/20/19 02/20/19 07:52 08:01 Temperature 98.4 F Pulse Rate 94 H Respiratory Rate Respiratory Rate [ Generalized] Blood Pressure 123/72 O2 Sat by Pulse 96 99 Oximetry - General Appearance General appearance: well-developed, appears stated age, chronically ill EENT: ATNC, PERRL, mucous membranes moist Neck: no JVD Respiratory: Present: Clear to Ascultation Cardiology: regular, S1S2 Gastrointestinal: normoactive bowel sounds Integumentary: no rash, other (no edema ) Neurologic: no focal deficit, alert and oriented x3, strength 5/5, CN 3-12 in tact Psychiatric: mood/affect appropriate, cooperative - Lab 02/18/19 22:29 02/19/19 16:47 Most recent lab results Calcium 8.9 mg/dL (8.4-10.2) 02/19/19 16:47 Medications & Allergies - Medications Allergies/Adverse Reactions: Allergies No Known Allergies Allergy (Verified 08/27/18 16:19) Home Medications: Home Medications Medication Instructions Recorded Confirmed Last Taken Type Epoetin Jeramy 10,000 Unit [Procrit] 10,000 unit IV TUTHSA vial 12/19/18 02/16/19 Unknown Rx Gabapentin 100 mg PO Q8HR 30 Days #90 capsule 12/19/18 02/16/19 Unknown Rx Polyethylene Glycol 3350 [Miralax 17 gm PO QDAY 30 Days powd.pack 12/19/18 02/16/19 Unknown Rx 3350] Sevelamer Carbonate [Renvela] 2,400 mg PO AC 30 Days tablet 12/19/18 02/16/19 Unknown Rx amLODIPine 7.5 mg PO QDAY 30 Days #45 tablet 12/19/18 02/16/19 Unknown Rx oxyCODONE /ACETAMINOPHEN [Percocet 1 tab PO BID PRN #20 tablet 12/19/18 02/16/19 Unknown Rx 5/325 mg] AtorvaSTATin [Lipitor] 20 mg PO QHS 01/05/19 02/16/19 Unknown History Pantoprazole [Protonix TAB] 40 mg PO DAILY #30 tablet 01/08/19 02/16/19 Unknown Rx Active Medications: Generic Name Dose Route Start Last Admin Trade Name Freq PRN Reason Stop Dose Admin Acetaminophen 650 mg 02/15/19 15:27 02/19/19 23:52 Tylenol PO 650 mg Q4H PRN Administration Pain MILD(1-3)/Fever >100.5/NEIL Albuterol 2.5 mg 02/15/19 15:27 Proventil IH Q4HRT PRN Shortness Of Breath Amlodipine Besylate 7.5 mg 02/16/19 10:00 02/19/19 15:13 Amlodipine PO 7.5 mg QDAY ISABELLA Administration Atorvastatin Calcium 20 mg 02/15/19 22:00 02/19/19 23:51 Lipitor PO 20 mg QHS ISABELLA Administration Epoetin Jeramy 10,000 unit 02/16/19 20:15 02/18/19 23:05 Procrit IV Not Given TUTHSA ISABELLA Gabapentin 100 mg 02/15/19 22:00 02/20/19 05:48 Gabapentin PO 100 mg Q8HR ISABLELA Administration Heparin Sodium (Porcine) 1,000 unit 02/16/19 11:00 Heparin 10,000 Units/10 Ml IV SISSY PRN hemodialysis Heparin Sodium (Porcine) 5,000 unit 02/16/19 11:00 Heparin IV SISSY PRN hemodialysis Heparin Sodium (Porcine) 5,000 unit 02/16/19 22:00 02/19/19 23:51 Heparin SUB-Q 5,000 unit Q12HR ISABELLA Administration Cefazolin Sodium 1 gm in 50 mls @ 100 mls/hr 02/18/19 18:00 02/19/19 17:28 Ancef/Ns 1 Gm/50 Ml IV 100 mls/hr QPM ISABELLA Administration Sodium Chloride 100 mls @ 999 mls/hr 02/18/19 13:34 Nacl 0.9% IV SISSY PRN Hypotension Ondansetron HCl 4 mg 02/15/19 15:27 Zofran IV Q8H PRN Nausea And Vomiting Oxycodone/Acetaminophen 1 tab 02/15/19 20:15 Percocet 5/325 PO BID PRN Pain, Moderate (4-6) Pantoprazole Sodium 40 mg 02/16/19 10:00 02/19/19 15:12 Protonix PO 40 mg DAILY ISABELLA Administration Polyethylene Glycol 17 gm 02/16/19 10:00 02/19/19 15:14 Miralax 3350 PO 17 gm QDAY ISABELLA Administration Sevelamer Carbonate 2,400 mg 02/16/19 07:30 02/19/19 17:17 Renvela PO 2,400 mg AC ISABELLA Administration Sodium Chloride 10 ml 02/15/19 22:00 02/19/19 23:51 Sodium Chloride Flush Syringe 10 Ml IV 10 ml BID ISABELLA Administration Sodium Chloride 10 ml 02/15/19 15:27 Sodium Chloride Flush Syringe 10 Ml IV PRN PRN LINE FLUSH
[2019-02-20] MEDS: amLODIPine 5 MG TAB PO SCH (09:47)
[2019-02-20] MEDS: SEVELAMER CARBONATE 800 MG TAB PO SCH ×3 (09:47→17:57)
[2019-02-20] MEDS: PANTOPRAZOLE 40 MG TAB PO SCH (09:48)
[2019-02-20] MEDS: HEPARIN 5,000 UNIT/1 ML VIAL SUB-Q SCH ×2 (09:48→22:57)
[2019-02-20] MEDS: POLYETHYLENE GLYCOL 3350 17 GM POWDER PO SCH (09:48)
--- NOTE | 2019-02-20 10:08 | Progress Note ---
Assessment and Plan Assessment and plan: Acute and chronic respiratory failure Admitted to [facility] supplemental oxygen, nebulizer therapy, pulse oximetry, Sepsis due to MSSA Dialysis catheter removed Cefazolin iv as per ID Bacteremia with Gram pos cocci, MSSA Consulted ID Physician, following ID recommends Cefazolin iv till 03/18/19 Toxic metabolic encephalopathy History of Septic embolism ESRD (end stage renal disease) Nephrology consulted, following, dialysis as per renal team. monitor uop q shift, avoid nephrotoxic agents, Advance care planning Pt is full code, Diagnosis education conducted, Pt acknowledges understanding and agreement with care plan. DVT prophylaxis SCD to BLE whlile in bed, Discussed with Patient and at bedside History Interval history: Less shortness of breath Fatigue confused on and off Hospitalist Physical - Physical exam Narrative exam: Gen: Not in acute distress, lying in bed, HEENT: Normocephalic, atraumatic Neck: supple, no JVD Heart: S1 and S2 reg, no murmurs, rubs or gallop Lungs: clear to auscultation bilaterally, no crackles Abd: soft, NT, non distended, normal BS Ext: No edema, no clubbing, no cyanosis Neuro:Awake,alert, confused, moves all ext - Constitutional Vitals: Temp Pulse Resp BP Pulse Ox 98.4 F 94 H 18 123/72 99 02/20/19 08:01 02/20/19 08:01 02/20/19 02:36 02/20/19 08:01 02/20/19 08:01 General appearance: Present: no acute distress, other (Left chest permacath with old blood surrounding the exit site however no evidence of purulence or erythema) Results - Labs CBC & Chem 7: 02/18/19 22:29 02/19/19 16:47 Labs: Laboratory Last Values WBC 7.0 K/mm3 (4.5-11.0) 02/18/19 22:29 RBC 3.68 M/mm3 (3.65-5.03) 02/18/19 22:29 Hgb 10.0 gm/dl (11.8-15.2) L 02/18/19 22:29 Hct 30.5 % (35.5-45.6) L 02/18/19 22:29 MCV 83 fl (84-94) L 02/18/19 22:29 MCH 27 pg (28-32) L 02/18/19 22:29 MCHC 33 % (32-34) 02/18/19 22:29 RDW 18.8 % (13.2-15.2) H 02/18/19 22:29 Plt Count 208 K/mm3 (140-440) 02/18/19 22:29 Lymph % (Auto) 15.9 % (13.4-35.0) 02/16/19 04:25 [place] % (Auto) 12.0 % (0.0-7.3) H 02/16/19 04:25 Eos % (Auto) 1.1 % (0.0-4.3) 02/16/19 04:25 Baso % (Auto) 0.5 % (0.0-1.8) 02/16/19 04:25 Lymph # 1.1 K/mm3 (1.2-5.4) L 02/16/19 04:25 [place] # 0.8 K/mm3 (0.0-0.8) 02/16/19 04:25 Eos # 0.1 K/mm3 (0.0-0.4) 02/16/19 04:25 Baso # 0.0 K/mm3 (0.0-0.1) 02/16/19 04:25 Add Manual Diff Complete 02/18/19 22:29 Total Counted 100 02/18/19 22:29 Seg Neutrophils % 70.5 % (40.0-70.0) H 02/16/19 04:25 Seg Neuts % (Manual) 70.0 % (40.0-70.0) 02/18/19 22:29 Band Neutrophils % 0 % 02/18/19 22:29 Lymphocytes % (Manual) 19.0 % (13.4-35.0) 02/18/19 22:29 Reactive Lymphs % (Man) 0 % 02/18/19 22:29 Monocytes % (Manual) 6.0 % (0.0-7.3) 02/18/19 22:29 Eosinophils % (Manual) 5.0 % (0.0-4.3) H 02/18/19 22:29 Basophils % (Manual) 0 % (0.0-1.8) 02/18/19 22:29 Metamyelocytes % 0 % 02/18/19 22:29 Myelocytes % 0 % 02/18/19 22:29 Promyelocytes % 0 % 02/18/19 22:29 Blast Cells % 0 % 02/18/19 22:29 Nucleated RBC % Not Reportable 02/18/19 22:29 Seg Neutrophils # 4.8 K/mm3 (1.8-7.7) 02/16/19 04:25 Seg Neutrophils # Man 4.9 K/mm3 (1.8-7.7) 02/18/19 22:29 Band Neutrophils # 0.0 K/mm3 02/18/19 22:29 Lymphocytes # (Manual) 1.3 K/mm3 (1.2-5.4) 02/18/19 22:29 Abs React Lymphs (Man) 0.0 K/mm3 02/18/19 22:29 Monocytes # (Manual) 0.4 K/mm3 (0.0-0.8) 02/18/19 22:29 Eosinophils # (Manual) 0.4 K/mm3 (0.0-0.4) 02/18/19 22:29 Basophils # (Manual) 0.0 K/mm3 (0.0-0.1) 02/18/19 22:29 Metamyelocytes # 0.0 K/mm3 02/18/19 22:29 Myelocytes # 0.0 K/mm3 02/18/19 22:29 Promyelocytes # 0.0 K/mm3 02/18/19 22:29 Blast Cells # 0.0 K/mm3 02/18/19 22:29 WBC Morphology Not Reportable 02/18/19 22:29 Hypersegmented Neuts Not Reportable 02/18/19 22:29 Hyposegmented Neuts Not Reportable 02/18/19 22:29 Hypogranular Neuts Not Reportable 02/18/19 22:29 Smudge Cells Not Reportable 02/18/19 22:29 Toxic Granulation Not Reportable 02/18/19 22:29 Toxic Vacuolation Not Reportable 02/18/19 22:29 Dohle Bodies Not Reportable 02/18/19 22:29 Pelger-Huet Anomaly Not Reportable 02/18/19 22:29 Fredi Rods Not Reportable 02/18/19 22:29 Platelet Estimate Consistent w auto 02/18/19 22:29 Clumped Platelets Not Reportable 02/18/19 22:29 Plt Clumps, EDTA Not Reportable 02/18/19 22:29 Large Platelets Not Reportable 02/18/19 22:29 Giant Platelets Not Reportable 02/18/19 22:29 Platelet Satelliting Not Reportable 02/18/19 22:29 Plt Morphology Comment Not Reportable 02/18/19 22:29 RBC Morphology Not Reportable 02/18/19 22:29 Dimorphic RBCs Not Reportable 02/18/19 22:29 Polychromasia Few 02/18/19 22:29 Hypochromasia Not Reportable 02/18/19 22:29 Poikilocytosis Not Reportable 02/18/19 22:29 Anisocytosis Not Reportable 02/18/19 22:29 Microcytosis Few 02/18/19 22:29 Macrocytosis Not Reportable 02/18/19 22:29 Spherocytes Not Reportable 02/18/19 22:29 Pappenheimer Bodies Not Reportable 02/18/19 22:29 Sickle Cells Not Reportable 02/18/19 22:29 Target Cells Few 02/18/19 22:29 Tear Drop Cells Rare 02/18/19 22:29 Ovalocytes Not Reportable 02/18/19 22:29 Helmet Cells Not Reportable 02/18/19 22:29 [place] Bodies Not Reportable 02/18/19 22:29 [place] Rings Not Reportable 02/18/19 22:29 [place] Cells Not Reportable 02/18/19 22:29 Bite Cells Not Reportable 02/18/19 22:29 Crenated Cell Not Reportable 02/18/19 22:29 Elliptocytes Not Reportable 02/18/19 22:29 Acanthocytes (Spur) Not Reportable 02/18/19 22:29 Rouleaux Not Reportable 02/18/19 22:29 Hemoglobin C Crystals Not Reportable 02/18/19 22:29 Schistocytes Not Reportable 02/18/19 22:29 Malaria parasites Not Reportable 02/18/19 22:29 [place] Bodies Not Reportable 02/18/19 22:29 Hem Pathologist Commnt No 02/18/19 22:29 PT 17.6 Sec. (12.2-14.9) H 02/15/19 09:47 INR 1.42 (0.87-1.13) H 02/15/19 09:47 POC ABG pH 7.415 (7.35-7.45) 02/15/19 11:21 POC ABG pCO2 47.3 (35-45) H 02/15/19 11:21 POC ABG pO2 55 (80-105) L 02/15/19 11:21 POC ABG HCO3 30.3 (22-26 mml/L) 02/15/19 11:21 POC ABG Total CO2 32 (23-27mmol/L) 02/15/19 11:21 POC ABG O2 Sat 88 02/15/19 11:21 POC ABG Base Excess 6 ((-2) - (+3)mmol/L) 02/15/19 11:21 VBG pH 7.424 (7.320-7.420) H 02/15/19 09:47 FiO2 21 % 02/15/19 11:21 Sodium 131 mmol/L (137-145) L 02/19/19 16:47 Potassium 3.7 mmol/L (3.6-5.0) 02/19/19 16:47 Chloride 95.2 mmol/L (98-107) L 02/19/19 16:47 Carbon Dioxide 22 mmol/L (22-30) 02/19/19 16:47 Anion Gap 18 mmol/L 02/19/19 16:47 BUN 25 mg/dL (9-20) H 02/19/19 16:47 Creatinine 4.7 mg/dL (0.8-1.5) H 02/19/19 16:47 Estimated GFR 15 ml/min 02/19/19 16:47 BUN/Creatinine Ratio 5 % 02/19/19 16:47 Glucose 94 mg/dL (75-100) 02/19/19 16:47 Lactic Acid 1.00 mmol/L (0.7-2.0) 02/15/19 14:31 Calcium 8.9 mg/dL (8.4-10.2) 02/19/19 16:47 Total Bilirubin 0.50 mg/dL (0.1-1.2) 02/16/19 04:25 AST 29 units/L (5-40) 02/16/19 04:25 ALT 6 units/L (7-56) L 02/16/19 04:25 Alkaline Phosphatase 115 units/L (35-129) 02/16/19 04:25 Ammonia 41.0 umol/L (25-60) 02/15/19 14:31 Total Protein 8.2 g/dL (6.3-8.2) 02/16/19 04:25 Albumin 2.7 g/dL (3.9-5) L 02/16/19 04:25 Albumin/Globulin Ratio 0.5 % 02/16/19 04:25 Random Vancomycin 10.5 ug/mL (0-40.0) 02/17/19 05:54 Hepatitis A IgM Ab Non-reactive (NonReactive) 02/15/19 13:16 Hep Bs Antigen Non-reactive (Negative) 02/15/19 13:16 Hep B Core IgM Ab Non-reactive (NonReactive) 02/15/19 13:16 Hepatitis C Antibody Non-reactive (NonReactive) 02/15/19 13:16 Active Medications - Current Medications Current Medications: Generic Name Dose Route Start Last Admin Trade Name Freq PRN Reason Stop Dose Admin Acetaminophen 650 mg 02/15/19 15:27 02/19/19 23:52 Tylenol PO 650 mg Q4H PRN Administration Pain MILD(1-3)/Fever >100.5/NEIL Albuterol 2.5 mg 02/15/19 15:27 Proventil IH Q4HRT PRN Shortness Of Breath Amlodipine Besylate 7.5 mg 02/16/19 10:00 02/20/19 09:47 Amlodipine PO 7.5 mg QDAY ISABELLA Administration Atorvastatin Calcium 20 mg 02/15/19 22:00 02/19/19 23:51 Lipitor PO 20 mg QHS ISABELLA Administration Epoetin Jermay 10,000 unit 02/16/19 20:15 02/18/19 23:05 Procrit IV Not Given [facility] Gabapentin 100 mg 02/15/19 22:00 02/20/19 05:48 Gabapentin PO 100 mg Q8HR ISABELLA Administration Heparin Sodium (Porcine) 1,000 unit 02/16/19 11:00 Heparin 10,000 Units/10 Ml IV SISSY PRN hemodialysis Heparin Sodium (Porcine) 5,000 unit 02/16/19 11:00 Heparin IV SISSY PRN hemodialysis Heparin Sodium (Porcine) 5,000 unit 02/16/19 22:00 02/20/19 09:48 Heparin SUB-Q 5,000 unit Q12HR ISABELLA Administration Cefazolin Sodium 1 gm in 50 mls @ 100 mls/hr 02/18/19 18:00 02/19/19 17:28 Ancef/Ns 1 Gm/50 Ml IV 03/18/19 23:59 100 mls/hr QPM ISABELLA Administration Sodium Chloride 100 mls @ 999 mls/hr 02/18/19 13:34 Nacl 0.9% IV SISSY PRN Hypotension Ondansetron HCl 4 mg 02/15/19 15:27 Zofran IV Q8H PRN Nausea And Vomiting Oxycodone/Acetaminophen 1 tab 02/15/19 20:15 Percocet 5/325 PO BID PRN Pain, Moderate (4-6) Pantoprazole Sodium 40 mg 02/16/19 10:00 02/20/19 09:48 Protonix PO 40 mg DAILY ISABELLA Administration Polyethylene Glycol 17 gm 02/16/19 10:00 02/20/19 09:48 Miralax 3350 PO 17 gm QDAY ISABELLA Administration Sevelamer Carbonate 2,400 mg 02/16/19 07:30 02/20/19 09:47 Renvela PO 2,400 mg AC ISABELLA Administration Sodium Chloride 10 ml 02/15/19 22:00 02/20/19 09:49 Sodium Chloride Flush Syringe 10 Ml IV 10 ml BID ISABELLA Administration Sodium Chloride 10 ml 02/15/19 15:27 Sodium Chloride Flush Syringe 10 Ml IV PRN PRN LINE FLUSH
[2019-02-20] MEDS: ceFAZolin/NS 1 GM/50 ML 1 GM/50 ML BAG IV SCH (17:57)
[2019-02-20] MEDS: ACETAMINOPHEN 325 MG TAB PO PRN (22:56)
[2019-02-20] MEDS: EPOETIN ALFA 10,000 UNIT/1 ML INJ IV SCH (23:13)
[2019-02-21] MEDS: GABAPENTIN 100 MG CAP PO SCH ×3 (06:59→23:37)
[2019-02-21] MEDS ORDERED: SODIUM CHLORIDE 0.9% 100 ML IV PRN (10:00)
[2019-02-21] MEDS: HEPARIN 5,000 UNIT/1 ML VIAL SUB-Q SCH ×2 (10:01→23:37)
[2019-02-21] MEDS: PANTOPRAZOLE 40 MG TAB PO SCH (10:01)
[2019-02-21] MEDS: SEVELAMER CARBONATE 800 MG TAB PO SCH ×3 (10:01→16:32)
[2019-02-21] MEDS: POLYETHYLENE GLYCOL 3350 17 GM POWDER PO SCH (10:01)
[2019-02-21] MEDS: amLODIPine 5 MG TAB PO SCH (10:01)
--- NOTE | 2019-02-21 10:25 | Progress Note ---
Assessment and Plan Assessment and plan: Acute and chronic respiratory failure Admitted to [facility] supplemental oxygen, nebulizer therapy, pulse oximetry, Sepsis due to MSSA Dialysis catheter removed Cefazolin iv as per ID Bacteremia with Gram pos cocci, MSSA Consulted ID Physician, following ID recommends Cefazolin iv till 03/18/19 Toxic metabolic encephalopathy History of Septic embolism ESRD (end stage renal disease) Nephrology consulted, following, dialysis as per renal team. monitor uop q shift, avoid nephrotoxic agents, Advance care planning Pt is full code, Diagnosis education conducted, Pt acknowledges understanding and agreement with care plan. DVT prophylaxis SCD to BLE whlile in bed, Discussed with Patient and at bedside History Interval history: Less shortness of breath Fatigue confused on and off says he has been confused since last admission last month Hospitalist Physical - Physical exam Narrative exam: Gen: Not in acute distress, lying in bed, HEENT: Normocephalic, atraumatic Neck: supple, no JVD Heart: S1 and S2 reg, no murmurs, rubs or gallop Lungs: clear to auscultation bilaterally, no crackles Abd: soft, NT, non distended, normal BS Ext: No edema, no clubbing, no cyanosis Neuro:Awake,alert, Oriented in person, not place or time,confused, moves all ext - Constitutional Vitals: Temp Pulse Resp BP Pulse Ox 98.2 F 107 H 20 129/83 94 02/21/19 07:52 02/21/19 07:52 02/21/19 07:52 02/21/19 07:52 02/21/19 09:34 General appearance: Present: no acute distress, other (Left chest permacath with old blood surrounding the exit site however no evidence of purulence or erythema) Results - Labs CBC & Chem 7: 02/18/19 22:29 02/19/19 16:47 Labs: Laboratory Last Values WBC 7.0 K/mm3 (4.5-11.0) 02/18/19 22:29 RBC 3.68 M/mm3 (3.65-5.03) 02/18/19 22:29 Hgb 10.0 gm/dl (11.8-15.2) L 02/18/19 22:29 Hct 30.5 % (35.5-45.6) L 02/18/19 22:29 MCV 83 fl (84-94) L 02/18/19 22:29 MCH 27 pg (28-32) L 02/18/19 22:29 MCHC 33 % (32-34) 02/18/19 22:29 RDW 18.8 % (13.2-15.2) H 02/18/19 22:29 Plt Count 208 K/mm3 (140-440) 02/18/19 22:29 Lymph % (Auto) 15.9 % (13.4-35.0) 02/16/19 04:25 [place] % (Auto) 12.0 % (0.0-7.3) H 02/16/19 04:25 Eos % (Auto) 1.1 % (0.0-4.3) 02/16/19 04:25 Baso % (Auto) 0.5 % (0.0-1.8) 02/16/19 04:25 Lymph # 1.1 K/mm3 (1.2-5.4) L 02/16/19 04:25 [place] # 0.8 K/mm3 (0.0-0.8) 02/16/19 04:25 Eos # 0.1 K/mm3 (0.0-0.4) 02/16/19 04:25 Baso # 0.0 K/mm3 (0.0-0.1) 02/16/19 04:25 Add Manual Diff Complete 02/18/19 22:29 Total Counted 100 02/18/19 22:29 Seg Neutrophils % 70.5 % (40.0-70.0) H 02/16/19 04:25 Seg Neuts % (Manual) 70.0 % (40.0-70.0) 02/18/19 22:29 Band Neutrophils % 0 % 02/18/19 22:29 Lymphocytes % (Manual) 19.0 % (13.4-35.0) 02/18/19 22:29 Reactive Lymphs % (Man) 0 % 02/18/19 22:29 Monocytes % (Manual) 6.0 % (0.0-7.3) 02/18/19 22:29 Eosinophils % (Manual) 5.0 % (0.0-4.3) H 02/18/19 22:29 Basophils % (Manual) 0 % (0.0-1.8) 02/18/19 22:29 Metamyelocytes % 0 % 02/18/19 22:29 Myelocytes % 0 % 02/18/19 22:29 Promyelocytes % 0 % 02/18/19 22:29 Blast Cells % 0 % 02/18/19 22:29 Nucleated RBC % Not Reportable 02/18/19 22:29 Seg Neutrophils # 4.8 K/mm3 (1.8-7.7) 02/16/19 04:25 Seg Neutrophils # Man 4.9 K/mm3 (1.8-7.7) 02/18/19 22:29 Band Neutrophils # 0.0 K/mm3 02/18/19 22:29 Lymphocytes # (Manual) 1.3 K/mm3 (1.2-5.4) 02/18/19 22:29 Abs React Lymphs (Man) 0.0 K/mm3 02/18/19 22:29 Monocytes # (Manual) 0.4 K/mm3 (0.0-0.8) 02/18/19 22:29 Eosinophils # (Manual) 0.4 K/mm3 (0.0-0.4) 02/18/19 22:29 Basophils # (Manual) 0.0 K/mm3 (0.0-0.1) 02/18/19 22:29 Metamyelocytes # 0.0 K/mm3 02/18/19 22:29 Myelocytes # 0.0 K/mm3 02/18/19 22:29 Promyelocytes # 0.0 K/mm3 02/18/19 22:29 Blast Cells # 0.0 K/mm3 02/18/19 22:29 WBC Morphology Not Reportable 02/18/19 22:29 Hypersegmented Neuts Not Reportable 02/18/19 22:29 Hyposegmented Neuts Not Reportable 02/18/19 22:29 Hypogranular Neuts Not Reportable 02/18/19 22:29 Smudge Cells Not Reportable 02/18/19 22:29 Toxic Granulation Not Reportable 02/18/19 22:29 Toxic Vacuolation Not Reportable 02/18/19 22:29 Dohle Bodies Not Reportable 02/18/19 22:29 Pelger-Huet Anomaly Not Reportable 02/18/19 22:29 Fredi Rods Not Reportable 02/18/19 22:29 Platelet Estimate Consistent w auto 02/18/19 22:29 Clumped Platelets Not Reportable 02/18/19 22:29 Plt Clumps, EDTA Not Reportable 02/18/19 22:29 Large Platelets Not Reportable 02/18/19 22:29 Giant Platelets Not Reportable 02/18/19 22:29 Platelet Satelliting Not Reportable 02/18/19 22:29 Plt Morphology Comment Not Reportable 02/18/19 22:29 RBC Morphology Not Reportable 02/18/19 22:29 Dimorphic RBCs Not Reportable 02/18/19 22:29 Polychromasia Few 02/18/19 22:29 Hypochromasia Not Reportable 02/18/19 22:29 Poikilocytosis Not Reportable 02/18/19 22:29 Anisocytosis Not Reportable 02/18/19 22:29 Microcytosis Few 02/18/19 22:29 Macrocytosis Not Reportable 02/18/19 22:29 Spherocytes Not Reportable 02/18/19 22:29 Pappenheimer Bodies Not Reportable 02/18/19 22:29 Sickle Cells Not Reportable 02/18/19 22:29 Target Cells Few 02/18/19 22:29 Tear Drop Cells Rare 02/18/19 22:29 Ovalocytes Not Reportable 02/18/19 22:29 Helmet Cells Not Reportable 02/18/19 22:29 [place] Bodies Not Reportable 02/18/19 22:29 [place] Rings Not Reportable 02/18/19 22:29 [place] Cells Not Reportable 02/18/19 22:29 Bite Cells Not Reportable 02/18/19 22:29 Crenated Cell Not Reportable 02/18/19 22:29 Elliptocytes Not Reportable 02/18/19 22:29 Acanthocytes (Spur) Not Reportable 02/18/19 22:29 Rouleaux Not Reportable 02/18/19 22:29 Hemoglobin C Crystals Not Reportable 02/18/19 22:29 Schistocytes Not Reportable 02/18/19 22:29 Malaria parasites Not Reportable 02/18/19 22:29 [place] Bodies Not Reportable 02/18/19 22:29 Hem Pathologist Commnt No 02/18/19 22:29 PT 17.6 Sec. (12.2-14.9) H 02/15/19 09:47 INR 1.42 (0.87-1.13) H 02/15/19 09:47 POC ABG pH 7.415 (7.35-7.45) 02/15/19 11:21 POC ABG pCO2 47.3 (35-45) H 02/15/19 11:21 POC ABG pO2 55 (80-105) L 02/15/19 11:21 POC ABG HCO3 30.3 (22-26 mml/L) 02/15/19 11:21 POC ABG Total CO2 32 (23-27mmol/L) 02/15/19 11:21 POC ABG O2 Sat 88 02/15/19 11:21 POC ABG Base Excess 6 ((-2) - (+3)mmol/L) 02/15/19 11:21 VBG pH 7.424 (7.320-7.420) H 02/15/19 09:47 FiO2 21 % 02/15/19 11:21 Sodium 131 mmol/L (137-145) L 02/19/19 16:47 Potassium 3.7 mmol/L (3.6-5.0) 02/19/19 16:47 Chloride 95.2 mmol/L (98-107) L 02/19/19 16:47 Carbon Dioxide 22 mmol/L (22-30) 02/19/19 16:47 Anion Gap 18 mmol/L 02/19/19 16:47 BUN 25 mg/dL (9-20) H 02/19/19 16:47 Creatinine 4.7 mg/dL (0.8-1.5) H 02/19/19 16:47 Estimated GFR 15 ml/min 02/19/19 16:47 BUN/Creatinine Ratio 5 % 02/19/19 16:47 Glucose 94 mg/dL (75-100) 02/19/19 16:47 Lactic Acid 1.00 mmol/L (0.7-2.0) 02/15/19 14:31 Calcium 8.9 mg/dL (8.4-10.2) 02/19/19 16:47 Total Bilirubin 0.50 mg/dL (0.1-1.2) 02/16/19 04:25 AST 29 units/L (5-40) 02/16/19 04:25 ALT 6 units/L (7-56) L 02/16/19 04:25 Alkaline Phosphatase 115 units/L (35-129) 02/16/19 04:25 Ammonia 41.0 umol/L (25-60) 02/15/19 14:31 Total Protein 8.2 g/dL (6.3-8.2) 02/16/19 04:25 Albumin 2.7 g/dL (3.9-5) L 02/16/19 04:25 Albumin/Globulin Ratio 0.5 % 02/16/19 04:25 Random Vancomycin 10.5 ug/mL (0-40.0) 02/17/19 05:54 Hepatitis A IgM Ab Non-reactive (NonReactive) 02/15/19 13:16 Hep Bs Antigen Non-reactive (Negative) 02/15/19 13:16 Hep B Core IgM Ab Non-reactive (NonReactive) 02/15/19 13:16 Hepatitis C Antibody Non-reactive (NonReactive) 02/15/19 13:16 Active Medications - Current Medications Current Medications: Generic Name Dose Route Start Last Admin Trade Name Freq PRN Reason Stop Dose Admin Acetaminophen 650 mg 02/15/19 15:27 02/20/19 22:56 Tylenol PO 650 mg Q4H PRN Administration Pain MILD(1-3)/Fever >100.5/NEIL Albuterol 2.5 mg 02/15/19 15:27 Proventil IH Q4HRT PRN Shortness Of Breath Amlodipine Besylate 7.5 mg 02/16/19 10:00 02/21/19 10:01 Amlodipine PO 7.5 mg QDAY ISABELLA Administration Atorvastatin Calcium 20 mg 02/15/19 22:00 02/20/19 22:56 Lipitor PO 20 mg QHS ISABELLA Administration Epoetin Jeramy 10,000 unit 02/16/19 20:15 02/20/19 23:13 Procrit IV 10,000 unit TUTHSA ISABELLA Administration Gabapentin 100 mg 02/15/19 22:00 02/21/19 06:59 Gabapentin PO 100 mg Q8HR ISABELLA Administration Heparin Sodium (Porcine) 1,000 unit 02/16/19 11:00 Heparin 10,000 Units/10 Ml IV SISSY PRN hemodialysis Heparin Sodium (Porcine) 5,000 unit 02/16/19 11:00 Heparin IV SISSY PRN hemodialysis Heparin Sodium (Porcine) 5,000 unit 02/16/19 22:00 02/21/19 10:01 Heparin SUB-Q 5,000 unit Q12HR ISABELLA Administration Cefazolin Sodium 1 gm in 50 mls @ 100 mls/hr 02/18/19 18:00 02/20/19 17:57 Ancef/Ns 1 Gm/50 Ml IV 03/18/19 23:59 100 mls/hr QPM ISABELLA Administration Sodium Chloride 100 mls @ 999 mls/hr 02/21/19 10:00 Nacl 0.9% IV SISSY PRN Hypotension Ondansetron HCl 4 mg 02/15/19 15:27 Zofran IV Q8H PRN Nausea And Vomiting Oxycodone/Acetaminophen 1 tab 02/15/19 20:15 Percocet 5/325 PO BID PRN Pain, Moderate (4-6) Pantoprazole Sodium 40 mg 02/16/19 10:00 02/21/19 10:01 Protonix PO 40 mg DAILY ISABELLA Administration Polyethylene Glycol 17 gm 02/16/19 10:00 02/21/19 10:01 Miralax 3350 PO 17 gm QDAY ISABELLA Administration Sevelamer Carbonate 2,400 mg 02/16/19 07:30 02/21/19 10:01 Renvela PO 2,400 mg AC ISABELLA Administration Sodium Chloride 10 ml 02/15/19 22:00 02/21/19 10:02 Sodium Chloride Flush Syringe 10 Ml IV 10 ml BID ISABELLA Administration Sodium Chloride 10 ml 02/15/19 15:27 Sodium Chloride Flush Syringe 10 Ml IV PRN PRN LINE FLUSH
[2019-02-21] MEDS: ceFAZolin/NS 1 GM/50 ML 1 GM/50 ML BAG IV SCH ×2 (16:33→18:00)
--- NOTE | 2019-02-21 16:42 | Progress Note ---
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 Has MSSA bacteremia. Repeat blood cultures February 17 2 of 2 growing gram-positive cocci. agree with workup for endocarditis. Continue antibiotics per infectious disease (2) ESRD (end stage renal disease) Current Visit: No Status: Chronic Plan to address problem: remove vascath to give line holiday. For new Permacath placement when cultures negative. will assess need for further HD on a daily basis (3) Hypertensive chronic kidney disease with stage 5 chronic kidney disease or end stage renal disease Current Visit: No Status: Acute Plan to address problem: Follow blood pressure on current medications (4) Altered mental status Current Visit: No Status: Acute Plan to address problem: Toxic encephalopathy. improving (5) Anemia in CKD (chronic kidney disease) Current Visit: No Status: Acute Qualifiers: Chronic kidney disease stage: stage 5, not on chronic dialysis Qualified Code(s): N18.5 - Chronic kidney disease, stage 5; D63.1 - Anemia in chronic kidney disease Plan to address problem: Give erythropoietin on dialysis (6) Hyperkalemia Current Visit: No Status: Acute Plan to address problem: Potassium has improved. Monitor potassium daily (7) Hyponatremia Current Visit: Yes Status: Acute Plan to address problem: Hemodialysis for fluid removal. follow repeat BMP Subjective Date of service: 02/21/19 Principal diagnosis: end-stage renal disease with MSSA bacteremia Interval history: Patient awake, alert, in no acute distress Objective - Vital Signs Vital signs: Vital Signs - 12hr 02/21/19 02/21/19 02/21/19 07:52 09:34 10:00 Temperature 98.2 F Pulse Rate 107 H 107 H Respiratory 20 Rate Blood Pressure 129/83 O2 Sat by Pulse 98 94 Oximetry 02/21/19 13:23 Temperature 97.8 F Pulse Rate 94 H Respiratory 16 Rate Blood Pressure 131/80 O2 Sat by Pulse 93 Oximetry - General Appearance General appearance: well-developed, well-nourished, appears stated age EENT: ATNC, PERRL, mucous membranes moist Neck: no JVD Respiratory: Present: Clear to Ascultation Cardiology: regular, S1S2 Gastrointestinal: normoactive bowel sounds Integumentary: no rash Neurologic: no focal deficit, alert and oriented x3, CN 3-12 intact Psychiatric: mood/affect appropriate, cooperative - Lab 02/18/19 22:29 02/19/19 16:47 Most recent lab results Calcium 8.9 mg/dL (8.4-10.2) 02/19/19 16:47 Medications & Allergies - Medications Allergies/Adverse Reactions: Allergies No Known Allergies Allergy (Verified 08/27/18 16:19) Home Medications: Home Medications Medication Instructions Recorded Confirmed Last Taken Type Epoetin Jeramy 10,000 Unit [Procrit] 10,000 unit IV TUTHSA vial 12/19/18 02/16/19 Unknown Rx Gabapentin 100 mg PO Q8HR 30 Days #90 capsule 12/19/18 02/16/19 Unknown Rx Polyethylene Glycol 3350 [Miralax 17 gm PO QDAY 30 Days powd.pack 12/19/18 02/16/19 Unknown Rx 3350] Sevelamer Carbonate [Renvela] 2,400 mg PO AC 30 Days tablet 12/19/18 02/16/19 Unknown Rx amLODIPine 7.5 mg PO QDAY 30 Days #45 tablet 12/19/18 02/16/19 Unknown Rx oxyCODONE /ACETAMINOPHEN [Percocet 1 tab PO BID PRN #20 tablet 12/19/18 02/16/19 Unknown Rx 5/325 mg] AtorvaSTATin [Lipitor] 20 mg PO QHS 01/05/19 02/16/19 Unknown History Pantoprazole [Protonix TAB] 40 mg PO DAILY #30 tablet 01/08/19 02/16/19 Unknown Rx Active Medications: Generic Name Dose Route Start Last Admin Trade Name Kurtq PRN Reason Stop Dose Admin Acetaminophen 650 mg 02/15/19 15:27 02/20/19 22:56 Tylenol PO 650 mg Q4H PRN Administration Pain MILD(1-3)/Fever >100.5/NEIL Albuterol 2.5 mg 02/15/19 15:27 Proventil IH Q4HRT PRN Shortness Of Breath Amlodipine Besylate 7.5 mg 02/16/19 10:00 02/21/19 10:01 Amlodipine PO 7.5 mg QDAY ISABELLA Administration Atorvastatin Calcium 20 mg 02/15/19 22:00 02/20/19 22:56 Lipitor PO 20 mg QHS ISABELLA Administration Epoetin Jeramy 10,000 unit 02/16/19 20:15 02/20/19 23:13 Procrit IV 10,000 unit TUTHSA ISABELLA Administration Gabapentin 100 mg 02/15/19 22:00 02/21/19 13:57 Gabapentin PO 100 mg Q8HR ISABELLA Administration Heparin Sodium (Porcine) 1,000 unit 02/16/19 11:00 Heparin 10,000 Units/10 Ml IV SISSY PRN hemodialysis Heparin Sodium (Porcine) 5,000 unit 02/16/19 11:00 Heparin IV SISSY PRN hemodialysis Heparin Sodium (Porcine) 5,000 unit 02/16/19 22:00 02/21/19 10:01 Heparin SUB-Q 5,000 unit Q12HR ISABELLA Administration Cefazolin Sodium 1 gm in 50 mls @ 100 mls/hr 02/18/19 18:00 02/21/19 16:33 Ancef/Ns 1 Gm/50 Ml IV 03/18/19 23:59 100 mls/hr QPM ISABELLA Administration Sodium Chloride 100 mls @ 999 mls/hr 02/21/19 10:00 Nacl 0.9% IV SISSY PRN Hypotension Ondansetron HCl 4 mg 02/15/19 15:27 Zofran IV Q8H PRN Nausea And Vomiting Oxycodone/Acetaminophen 1 tab 02/15/19 20:15 Percocet 5/325 PO BID PRN Pain, Moderate (4-6) Pantoprazole Sodium 40 mg 02/16/19 10:00 02/21/19 10:01 Protonix PO 40 mg DAILY ISABELLA Administration Polyethylene Glycol 17 gm 02/16/19 10:00 02/21/19 10:01 Miralax 3350 PO 17 gm QDAY ISABELLA Administration Sevelamer Carbonate 2,400 mg 02/16/19 07:30 02/21/19 16:32 Renvela PO 2,400 mg AC ISABELLA Administration Sodium Chloride 10 ml 02/15/19 22:00 02/21/19 10:02 Sodium Chloride Flush Syringe 10 Ml IV 10 ml BID ISABELLA Administration Sodium Chloride 10 ml 02/15/19 15:27 Sodium Chloride Flush Syringe 10 Ml IV PRN PRN LINE FLUSH
[2019-02-22] MEDS: GABAPENTIN 100 MG CAP PO SCH ×3 (07:51→21:30)
[2019-02-22 08:31] LABS: Calcium 9.6 mg/dL (8.4-10.2)
[2019-02-22] MEDS: SEVELAMER CARBONATE 800 MG TAB PO SCH ×3 (08:59→17:08)
--- NOTE | 2019-02-22 09:31 | Progress Note ---
Assessment and Plan Cultures Blood culture 02/15/19 MSSA Blood culture 02/17/19 MSSA Blood culture 02/18/19 negative Assessment: 73 yo M PMHx MSSA bacteremia and infected septic emboli (s/p 6 weeks cefazolin), HTN, afib/a flutter, ESRd on HD admitted with S aureus bacteremia 1. MSSA bacteremia - source is likely dialysis line. Line removed, ok to replac e a permanent line when cultures negative x48 hours. Needs TTE 2. Hx of septic emboli - complaining of SOB, imaging shows septic emboli not worse than previous, though with new bacteremia concern they could yet still become worse. 3. ESRD on HD - renally dose antibiotics. 4. HTN Recs: - cefazolin 2g q24h. - Vas cath placed today. Ok for permanent line now with 48negative cultures. - ordered TTE - done, pending read. - will need 4 weeks of cefazolin (2-2-3g) with dialysis until 03/18/2019. Case management consult was placed 02/18/19. Thank you for the consult, we will continue to follow. [facility] M: [phone] O: [phone] F: [phone] Subjective Date of service: 02/22/19 Principal diagnosis: end-stage renal disease with MSSA bacteremia Interval history: Afebrile, normal white count. No change. Objective - Exam Narrative Exam: General Normal appearance, well developed, no acute distress Eyes - PERRLA, EOM intact ENT - Moist mucous membranes, no lymphadenopathy Neck - No noticeable or palpable swelling, redness or rash around throat or on face Lymph Nodes - No lymphadenopathy Cardiovascular - RRR no m/r/g, no JVD, no carotid bruits Lungs - Clear to auscultation, no use of accessory muscles, no crackles or wheezes. Skin - No rashes, skin warm and dry, no erythematous areas Abdomen - Normal bowel sounds, abdomen soft and nontender Extremities - No edema, cyanosis or clubbing Musculoskeletal - 5/5 strength, normal range of motion, no swollen or erythematous joints. Neurological Alert and oriented x 3, CN 2-12 grossly intact. - Constitutional Vitals: Vital Signs Temp Pulse Resp BP Pulse Ox 98.6 F 106 H 20 106/82 94 02/22/19 02:23 02/22/19 02:23 02/22/19 02:23 02/22/19 02:21 02/22/19 02:23 Temperature -Last 24 Hours Temperature 98.6 F Temperature 97.6 F Temperature 97.8 F - Labs CBC & Chem 7: 02/18/19 22:29 02/22/19 07:40 Labs: Abnormal lab results 02/22/19 Range/Units 07:40 Sodium 136 L (137-145) mmol/L BUN 49 H (9-20) mg/dL Creatinine 8.0 H D (0.8-1.5) mg/dL
[2019-02-22] MEDS: HEPARIN 5,000 UNIT/1 ML VIAL SUB-Q SCH ×2 (10:00→21:30)
[2019-02-22] MEDS: EPOETIN ALFA 10,000 UNIT/1 ML INJ IV SCH (11:30)
[2019-02-22] MEDS ORDERED: SODIUM CHLORIDE*PRIMING MACHINE ONLY FOR DIALYSIS MC ONE (11:33)
[2019-02-22] MEDS: PANTOPRAZOLE 40 MG TAB PO SCH (13:33)
[2019-02-22] MEDS: POLYETHYLENE GLYCOL 3350 17 GM POWDER PO SCH (13:33)
[2019-02-22] MEDS: amLODIPine 5 MG TAB PO SCH (13:34)
--- NOTE | 2019-02-22 14:08 | Progress Note ---
Assessment and Plan Assessment and plan: Acute and chronic respiratory failure Admitted to [facility] supplemental oxygen, nebulizer therapy, pulse oximetry, Sepsis due to MSSA Dialysis catheter removed Cefazolin iv as per ID For Permcath placement by vascular Surg. Permcath placement cleared by ID since blood cultures now neg X 48hrs Bacteremia with Gram pos cocci, MSSA Consulted ID Physician, following ID recommends Cefazolin iv till 03/18/19 Toxic metabolic encephalopathy History of Septic embolism ESRD (end stage renal disease) Nephrology consulted, following, dialysis as per renal team. monitor uop q shift, avoid nephrotoxic agents, Advance care planning Pt is full code, Diagnosis education conducted, Pt acknowledges understanding and agreement with care plan. DVT prophylaxis SCD to BLE whlile in bed, Poss dc home tomorrow after Permcath History Interval history: Less shortness of breath Fatigue confused on and off says he has been confused since last admission last month Hospitalist Physical - Physical exam Narrative exam: Gen: Not in acute distress, lying in bed, HEENT: Normocephalic, atraumatic Neck: supple, no JVD Heart: S1 and S2 reg, no murmurs, rubs or gallop Lungs: clear to auscultation bilaterally, no crackles Abd: soft, NT, non distended, normal BS Ext: No edema, no clubbing, no cyanosis Neuro:Awake,alert, Oriented in person, not place or time,confused, moves all ext - Constitutional Vitals: Temp Pulse Resp BP Pulse Ox 98.2 F 98 H 18 117/61 94 02/22/19 09:05 02/22/19 13:34 02/22/19 09:05 02/22/19 13:34 02/22/19 10:00 General appearance: Present: no acute distress Results - Labs CBC & Chem 7: 02/18/19 22:29 02/22/19 07:40 Labs: Laboratory Last Values WBC 7.0 K/mm3 (4.5-11.0) 02/18/19 22:29 RBC 3.68 M/mm3 (3.65-5.03) 02/18/19 22:29 Hgb 10.0 gm/dl (11.8-15.2) L 02/18/19 22:29 Hct 30.5 % (35.5-45.6) L 02/18/19 22:29 MCV 83 fl (84-94) L 02/18/19 22:29 MCH 27 pg (28-32) L 02/18/19 22:29 MCHC 33 % (32-34) 02/18/19 22:29 RDW 18.8 % (13.2-15.2) H 02/18/19 22:29 Plt Count 208 K/mm3 (140-440) 02/18/19 22:29 Lymph % (Auto) 15.9 % (13.4-35.0) 02/16/19 04:25 [place] % (Auto) 12.0 % (0.0-7.3) H 02/16/19 04:25 Eos % (Auto) 1.1 % (0.0-4.3) 02/16/19 04:25 Baso % (Auto) 0.5 % (0.0-1.8) 02/16/19 04:25 Lymph # 1.1 K/mm3 (1.2-5.4) L 02/16/19 04:25 [place] # 0.8 K/mm3 (0.0-0.8) 02/16/19 04:25 Eos # 0.1 K/mm3 (0.0-0.4) 02/16/19 04:25 Baso # 0.0 K/mm3 (0.0-0.1) 02/16/19 04:25 Add Manual Diff Complete 02/18/19 22:29 Total Counted 100 02/18/19 22:29 Seg Neutrophils % 70.5 % (40.0-70.0) H 02/16/19 04:25 Seg Neuts % (Manual) 70.0 % (40.0-70.0) 02/18/19 22:29 Band Neutrophils % 0 % 02/18/19 22:29 Lymphocytes % (Manual) 19.0 % (13.4-35.0) 02/18/19 22:29 Reactive Lymphs % (Man) 0 % 02/18/19 22:29 Monocytes % (Manual) 6.0 % (0.0-7.3) 02/18/19 22:29 Eosinophils % (Manual) 5.0 % (0.0-4.3) H 02/18/19 22:29 Basophils % (Manual) 0 % (0.0-1.8) 02/18/19 22:29 Metamyelocytes % 0 % 02/18/19 22:29 Myelocytes % 0 % 02/18/19 22:29 Promyelocytes % 0 % 02/18/19 22:29 Blast Cells % 0 % 02/18/19 22:29 Nucleated RBC % Not Reportable 02/18/19 22:29 Seg Neutrophils # 4.8 K/mm3 (1.8-7.7) 02/16/19 04:25 Seg Neutrophils # Man 4.9 K/mm3 (1.8-7.7) 02/18/19 22:29 Band Neutrophils # 0.0 K/mm3 02/18/19 22:29 Lymphocytes # (Manual) 1.3 K/mm3 (1.2-5.4) 02/18/19 22:29 Abs React Lymphs (Man) 0.0 K/mm3 02/18/19 22:29 Monocytes # (Manual) 0.4 K/mm3 (0.0-0.8) 02/18/19 22:29 Eosinophils # (Manual) 0.4 K/mm3 (0.0-0.4) 02/18/19 22:29 Basophils # (Manual) 0.0 K/mm3 (0.0-0.1) 02/18/19 22:29 Metamyelocytes # 0.0 K/mm3 02/18/19 22:29 Myelocytes # 0.0 K/mm3 02/18/19 22:29 Promyelocytes # 0.0 K/mm3 02/18/19 22:29 Blast Cells # 0.0 K/mm3 02/18/19 22:29 WBC Morphology Not Reportable 02/18/19 22:29 Hypersegmented Neuts Not Reportable 02/18/19 22:29 Hyposegmented Neuts Not Reportable 02/18/19 22:29 Hypogranular Neuts Not Reportable 02/18/19 22:29 Smudge Cells Not Reportable 02/18/19 22:29 Toxic Granulation Not Reportable 02/18/19 22:29 Toxic Vacuolation Not Reportable 02/18/19 22:29 Dohle Bodies Not Reportable 02/18/19 22:29 Pelger-Huet Anomaly Not Reportable 02/18/19 22:29 Fredi Rods Not Reportable 02/18/19 22:29 Platelet Estimate Consistent w auto 02/18/19 22:29 Clumped Platelets Not Reportable 02/18/19 22:29 Plt Clumps, EDTA Not Reportable 02/18/19 22:29 Large Platelets Not Reportable 02/18/19 22:29 Giant Platelets Not Reportable 02/18/19 22:29 Platelet Satelliting Not Reportable 02/18/19 22:29 Plt Morphology Comment Not Reportable 02/18/19 22:29 RBC Morphology Not Reportable 02/18/19 22:29 Dimorphic RBCs Not Reportable 02/18/19 22:29 Polychromasia Few 02/18/19 22:29 Hypochromasia Not Reportable 02/18/19 22:29 Poikilocytosis Not Reportable 02/18/19 22:29 Anisocytosis Not Reportable 02/18/19 22:29 Microcytosis Few 02/18/19 22:29 Macrocytosis Not Reportable 02/18/19 22:29 Spherocytes Not Reportable 02/18/19 22:29 Pappenheimer Bodies Not Reportable 02/18/19 22:29 Sickle Cells Not Reportable 02/18/19 22:29 Target Cells Few 02/18/19 22:29 Tear Drop Cells Rare 02/18/19 22:29 Ovalocytes Not Reportable 02/18/19 22:29 Helmet Cells Not Reportable 02/18/19 22:29 [place] Bodies Not Reportable 02/18/19 22:29 [place] Rings Not Reportable 02/18/19 22:29 [place] Cells Not Reportable 02/18/19 22:29 Bite Cells Not Reportable 02/18/19 22:29 Crenated Cell Not Reportable 02/18/19 22:29 Elliptocytes Not Reportable 02/18/19 22:29 Acanthocytes (Spur) Not Reportable 02/18/19 22:29 Rouleaux Not Reportable 02/18/19 22:29 Hemoglobin C Crystals Not Reportable 02/18/19 22:29 Schistocytes Not Reportable 02/18/19 22:29 Malaria parasites Not Reportable 02/18/19 22:29 [place] Bodies Not Reportable 02/18/19 22:29 Hem Pathologist Commnt No 02/18/19 22:29 PT 17.6 Sec. (12.2-14.9) H 02/15/19 09:47 INR 1.42 (0.87-1.13) H 02/15/19 09:47 POC ABG pH 7.415 (7.35-7.45) 02/15/19 11:21 POC ABG pCO2 47.3 (35-45) H 02/15/19 11:21 POC ABG pO2 55 (80-105) L 02/15/19 11:21 POC ABG HCO3 30.3 (22-26 mml/L) 02/15/19 11:21 POC ABG Total CO2 32 (23-27mmol/L) 02/15/19 11:21 POC ABG O2 Sat 88 02/15/19 11:21 POC ABG Base Excess 6 ((-2) - (+3)mmol/L) 02/15/19 11:21 VBG pH 7.424 (7.320-7.420) H 02/15/19 09:47 FiO2 21 % 02/15/19 11:21 Sodium 136 mmol/L (137-145) L 02/22/19 07:40 Potassium 4.0 mmol/L (3.6-5.0) 02/22/19 07:40 Chloride 98.1 mmol/L (98-107) 02/22/19 07:40 Carbon Dioxide 22 mmol/L (22-30) 02/22/19 07:40 Anion Gap 20 mmol/L 02/22/19 07:40 BUN 49 mg/dL (9-20) H 02/22/19 07:40 Creatinine 8.0 mg/dL (0.8-1.5) H D 02/22/19 07:40 Estimated GFR 8 ml/min 02/22/19 07:40 BUN/Creatinine Ratio 6 % 02/22/19 07:40 Glucose 93 mg/dL (75-100) 02/22/19 07:40 Lactic Acid 1.00 mmol/L (0.7-2.0) 02/15/19 14:31 Calcium 9.6 mg/dL (8.4-10.2) 02/22/19 07:40 Total Bilirubin 0.50 mg/dL (0.1-1.2) 02/16/19 04:25 AST 29 units/L (5-40) 02/16/19 04:25 ALT 6 units/L (7-56) L 02/16/19 04:25 Alkaline Phosphatase 115 units/L (35-129) 02/16/19 04:25 Ammonia 41.0 umol/L (25-60) 02/15/19 14:31 Total Protein 8.2 g/dL (6.3-8.2) 02/16/19 04:25 Albumin 2.7 g/dL (3.9-5) L 02/16/19 04:25 Albumin/Globulin Ratio 0.5 % 02/16/19 04:25 Random Vancomycin 10.5 ug/mL (0-40.0) 02/17/19 05:54 Hepatitis A IgM Ab Non-reactive (NonReactive) 02/15/19 13:16 Hep Bs Antigen Non-reactive (Negative) 02/15/19 13:16 Hep B Core IgM Ab Non-reactive (NonReactive) 02/15/19 13:16 Hepatitis C Antibody Non-reactive (NonReactive) 02/15/19 13:16 Active Medications - Current Medications Current Medications: Generic Name Dose Route Start Last Admin Trade Name Freq PRN Reason Stop Dose Admin Acetaminophen 650 mg 02/15/19 15:27 02/20/19 22:56 Tylenol PO 650 mg Q4H PRN Administration Pain MILD(1-3)/Fever >100.5/NEIL Albuterol 2.5 mg 02/15/19 15:27 Proventil IH Q4HRT PRN Shortness Of Breath Amlodipine Besylate 7.5 mg 02/16/19 10:00 02/22/19 13:34 Amlodipine PO 7.5 mg QDAY ISABELLA Administration Atorvastatin Calcium 20 mg 02/15/19 22:00 02/21/19 23:37 Lipitor PO 20 mg QHS ISABELLA Administration Epoetin Jeramy 10,000 unit 02/16/19 20:15 02/20/19 23:13 Procrit IV 10,000 unit TUTHSA ISABELLA Administration Gabapentin 100 mg 02/15/19 22:00 02/22/19 13:37 Gabapentin PO 100 mg Q8HR ISABELLA Administration Heparin Sodium (Porcine) 1,000 unit 02/16/19 11:00 Heparin 10,000 Units/10 Ml IV SISSY PRN hemodialysis Heparin Sodium (Porcine) 5,000 unit 02/16/19 11:00 Heparin IV SISSY PRN hemodialysis Heparin Sodium (Porcine) 5,000 unit 02/16/19 22:00 02/22/19 10:00 Heparin SUB-Q Not Given Q12HR ISABELLA Cefazolin Sodium 1 gm in 50 mls @ 100 mls/hr 02/18/19 18:00 02/21/19 18:00 Ancef/Ns 1 Gm/50 Ml IV 03/18/19 23:59 Not Given QPM ISABELLA Sodium Chloride 100 mls @ 999 mls/hr 02/21/19 10:00 Nacl 0.9% IV SISSY PRN Hypotension Ondansetron HCl 4 mg 02/15/19 15:27 Zofran IV Q8H PRN Nausea And Vomiting Oxycodone/Acetaminophen 1 tab 02/15/19 20:15 Percocet 5/325 PO BID PRN Pain, Moderate (4-6) Pantoprazole Sodium 40 mg 02/16/19 10:00 02/22/19 13:33 Protonix PO 40 mg DAILY ISABELLA Administration Polyethylene Glycol 17 gm 02/16/19 10:00 02/22/19 13:33 Miralax 3350 PO 17 gm QDAY ISABELLA Administration Sevelamer Carbonate 2,400 mg 02/16/19 07:30 02/22/19 11:30 Renvela PO Not Given AC ISABELLA Sodium Chloride 10 ml 02/15/19 22:00 02/22/19 13:35 Sodium Chloride Flush Syringe 10 Ml IV 10 ml BID ISABELLA Administration Sodium Chloride 10 ml 02/15/19 15:27 Sodium Chloride Flush Syringe 10 Ml IV PRN PRN LINE FLUSH Nutrition/Malnutrition Assess - Dietary Evaluation Nutrition/Malnutrition Findings: Nutrition Notes Start: 02/22/19 11:27 Freq: Status: Active Protocol: Document 02/22/19 11:27 LM (Rec: 02/22/19 11:29 LM [id number]) Nutrition Notes Need for Assessment generated from: LOS Initial or Follow up Brief Note Percent of energy/protein needs met: Screen for LOS. Pt in HD. 75- 100% intakes in chart. Reviewed previous chart from 01/2019. Pt with no wt lost and good intakes. Nutrition Intervention Revisit per MD consult or patient Sign Off request:
--- NOTE | 2019-02-22 16:52 | Progress Note ---
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 Has MSSA bacteremia. Repeat blood cultures negative > 48h, cleared fro permcath placement from ID stand point. Continue antibiotics per infectious disease (2) ESRD (end stage renal disease) Current Visit: No Status: Chronic Plan to address problem: For new Permacath placement today, cont HD on TTS schedule (3) Hypertensive chronic kidney disease with stage 5 chronic kidney disease or end stage renal disease Current Visit: No Status: Acute Plan to address problem: Follow blood pressure on current medications (4) Altered mental status Current Visit: No Status: Acute Plan to address problem: Toxic encephalopathy. improving (5) Anemia in CKD (chronic kidney disease) Current Visit: No Status: Acute Qualifiers: Chronic kidney disease stage: stage 5, not on chronic dialysis Qualified Code(s): N18.5 - Chronic kidney disease, stage 5; D63.1 - Anemia in chronic kidney disease Plan to address problem: Give erythropoietin on dialysis (6) Hyperkalemia Current Visit: No Status: Acute Plan to address problem: Potassium has improved. Monitor potassium daily (7) Hyponatremia Current Visit: Yes Status: Acute Plan to address problem: Hemodialysis for fluid removal. follow repeat BMP Subjective Date of service: 02/22/19 Principal diagnosis: end-stage renal disease with MSSA bacteremia Interval history: Patient awake, alert, in no acute distress Objective - Vital Signs Vital signs: Vital Signs - 12hr 02/22/19 02/22/19 02/22/19 08:00 08:40 09:05 Temperature 98.4 F 98.2 F Pulse Rate 112 H 102 H Respiratory 18 18 Rate Blood Pressure 150/93 138/85 O2 Sat by Pulse 95 Oximetry O2 Sat by Pulse 95 Oximetry [ Throughout] 02/22/19 02/22/19 02/22/19 09:10 09:15 09:30 Temperature Pulse Rate 98 H 100 H 95 H Respiratory Rate Blood Pressure 141/77 132/80 119/66 O2 Sat by Pulse Oximetry O2 Sat by Pulse Oximetry [ Throughout] 02/22/19 02/22/19 02/22/19 09:45 10:00 10:15 Temperature Pulse Rate 98 H 98 H 95 H Respiratory Rate Blood Pressure 120/61 91/53 116/51 O2 Sat by Pulse 94 Oximetry O2 Sat by Pulse Oximetry [ Throughout] 02/22/19 02/22/19 02/22/19 10:30 10:45 11:00 Temperature Pulse Rate 98 H 94 H 98 H Respiratory Rate Blood Pressure 126/60 118/76 123/62 O2 Sat by Pulse Oximetry O2 Sat by Pulse Oximetry [ Throughout] 02/22/19 02/22/19 02/22/19 11:15 11:30 11:45 Temperature Pulse Rate 98 H 96 H 98 H Respiratory Rate Blood Pressure 125/71 120/66 117/61 O2 Sat by Pulse Oximetry O2 Sat by Pulse Oximetry [ Throughout] 02/22/19 02/22/19 02/22/19 12:00 12:15 12:30 Temperature Pulse Rate 106 H 104 H 108 H Respiratory Rate Blood Pressure 129/66 135/70 123/71 O2 Sat by Pulse Oximetry O2 Sat by Pulse Oximetry [ Throughout] 02/22/19 02/22/19 02/22/19 12:35 13:27 13:34 Temperature 98.2 F 98.7 F Pulse Rate 98 H 113 H 98 H Respiratory 18 20 Rate Blood Pressure 139/79 130/89 117/61 O2 Sat by Pulse 97 Oximetry O2 Sat by Pulse 95 Oximetry [ Throughout] - General Appearance General appearance: well-developed, well-nourished, appears stated age EENT: ATNC, PERRL, mucous membranes moist Neck: no JVD Respiratory: Present: Clear to Ascultation Cardiology: regular, S1S2 Gastrointestinal: normoactive bowel sounds Integumentary: no rash, other (no edema ) Neurologic: no focal deficit, strength 5/5, CN 3-12 intact Psychiatric: mood/affect appropriate, cooperative - Lab 02/18/19 22:29 02/22/19 07:40 Most recent lab results Calcium 9.6 mg/dL (8.4-10.2) 02/22/19 07:40 Medications & Allergies - Medications Allergies/Adverse Reactions: Allergies No Known Allergies Allergy (Verified 08/27/18 16:19) Home Medications: Home Medications Medication Instructions Recorded Confirmed Last Taken Type Epoetin Jeramy 10,000 Unit [Procrit] 10,000 unit IV TUTHSA vial 12/19/18 02/16/19 Unknown Rx Gabapentin 100 mg PO Q8HR 30 Days #90 capsule 12/19/18 02/16/19 Unknown Rx Polyethylene Glycol 3350 [Miralax 17 gm PO QDAY 30 Days powd.pack 12/19/18 02/16/19 Unknown Rx 3350] Sevelamer Carbonate [Renvela] 2,400 mg PO AC 30 Days tablet 12/19/18 02/16/19 Unknown Rx amLODIPine 7.5 mg PO QDAY 30 Days #45 tablet 12/19/18 02/16/19 Unknown Rx oxyCODONE /ACETAMINOPHEN [Percocet 1 tab PO BID PRN #20 tablet 12/19/18 02/16/19 Unknown Rx 5/325 mg] AtorvaSTATin [Lipitor] 20 mg PO QHS 01/05/19 02/16/19 Unknown History Pantoprazole [Protonix TAB] 40 mg PO DAILY #30 tablet 01/08/19 02/16/19 Unknown Rx Active Medications: Generic Name Dose Route Start Last Admin Trade Name Freq PRN Reason Stop Dose Admin Acetaminophen 650 mg 02/15/19 15:27 02/20/19 22:56 Tylenol PO 650 mg Q4H PRN Administration Pain MILD(1-3)/Fever >100.5/NEIL Albuterol 2.5 mg 02/15/19 15:27 Proventil IH Q4HRT PRN Shortness Of Breath Amlodipine Besylate 7.5 mg 02/16/19 10:00 02/22/19 13:34 Amlodipine PO 7.5 mg QDAY ISABELLA Administration Atorvastatin Calcium 20 mg 02/15/19 22:00 02/21/19 23:37 Lipitor PO 20 mg QHS ISABELLA Administration Epoetin Jeramy 10,000 unit 02/16/19 20:15 02/22/19 11:30 Procrit IV 10,000 unit TUTHSA REPLACED BY [facility] Administration Gabapentin 100 mg 02/15/19 22:00 02/22/19 13:37 Gabapentin PO 100 mg Q8HR ISABELLA Administration Heparin Sodium (Porcine) 1,000 unit 02/16/19 11:00 Heparin 10,000 Units/10 Ml IV SISSY PRN hemodialysis Heparin Sodium (Porcine) 5,000 unit 02/16/19 11:00 Heparin IV SISSY PRN hemodialysis Heparin Sodium (Porcine) 5,000 unit 02/16/19 22:00 02/22/19 10:00 Heparin SUB-Q Not Given Q12HR REPLACED BY [facility] Cefazolin Sodium 1 gm in 50 mls @ 100 mls/hr 02/18/19 18:00 02/21/19 18:00 Ancef/Ns 1 Gm/50 Ml IV 03/18/19 23:59 Not Given QPM ISABELLA Sodium Chloride 100 mls @ 999 mls/hr 02/21/19 10:00 Nacl 0.9% IV SISSY PRN Hypotension Ondansetron HCl 4 mg 02/15/19 15:27 Zofran IV Q8H PRN Nausea And Vomiting Oxycodone/Acetaminophen 1 tab 02/15/19 20:15 Percocet 5/325 PO BID PRN Pain, Moderate (4-6) Pantoprazole Sodium 40 mg 02/16/19 10:00 02/22/19 13:33 Protonix PO 40 mg DAILY ISABELLA Administration Polyethylene Glycol 17 gm 02/16/19 10:00 02/22/19 13:33 Miralax 3350 PO 17 gm QDAY ISABELLA Administration Sevelamer Carbonate 2,400 mg 02/16/19 07:30 02/22/19 11:30 Renvela PO Not Given AC ISABELLA Sodium Chloride 10 ml 02/15/19 22:00 02/22/19 13:35 Sodium Chloride Flush Syringe 10 Ml IV 10 ml BID ISABELLA Administration Sodium Chloride 10 ml 02/15/19 15:27 Sodium Chloride Flush Syringe 10 Ml IV PRN PRN LINE FLUSH
[2019-02-22] MEDS: ceFAZolin/NS 1 GM/50 ML 1 GM/50 ML BAG IV SCH (17:07)
[2019-02-23] MEDS: GABAPENTIN 100 MG CAP PO SCH ×3 (05:01→21:58)
[2019-02-23] MEDS: SEVELAMER CARBONATE 800 MG TAB PO SCH ×3 (08:42→17:49)
--- NOTE | 2019-02-23 10:05 | Progress Note ---
Assessment and Plan Cultures Blood culture 02/15/19 MSSA Blood culture 02/17/19 MSSA Blood culture 02/18/19 negative Assessment: 73 yo M PMHx MSSA bacteremia and infected septic emboli (s/p 6 weeks cefazolin), HTN, afib/a flutter, ESRd on HD admitted with S aureus bacteremia 1. MSSA bacteremia - source is likely dialysis line. Line removed, ok to replac e a permanent line when cultures negative x48 hours. Needs TTE 2. Hx of septic emboli - complaining of SOB, imaging shows septic emboli not worse than previous, though with new bacteremia concern they could yet still become worse. 3. ESRD on HD - renally dose antibiotics. 4. HTN Recs: - cefazolin 2g q24h. - Vas cath placed. Ok for permanent line now with 48 hours of negative cultures. - will need 4 weeks of cefazolin (2-2-3g) with dialysis until 03/18/2019. Case management consult was placed 02/18/19. Thank you for the consult, we will sign off. Please call with questions. Dr. Braun taking over tomorrow. [facility] M: [phone] O: [phone] F: [phone] Subjective Date of service: 02/23/19 Principal diagnosis: end-stage renal disease with MSSA bacteremia Interval history: Afebrile, normal white count. No change. Objective - Exam Narrative Exam: General Normal appearance, well developed, no acute distress Eyes - PERRLA, EOM intact ENT - Moist mucous membranes, no lymphadenopathy Neck - No noticeable or palpable swelling, redness or rash around throat or on face Lymph Nodes - No lymphadenopathy Cardiovascular - RRR no m/r/g, no JVD, no carotid bruits Lungs - Clear to auscultation, no use of accessory muscles, no crackles or wheezes. Skin - No rashes, skin warm and dry, no erythematous areas Abdomen - Normal bowel sounds, abdomen soft and nontender Extremities - No edema, cyanosis or clubbing Musculoskeletal - 5/5 strength, normal range of motion, no swollen or erythematous joints. Neurological Alert and oriented x 3, CN 2-12 grossly intact. - Constitutional Vitals: Vital Signs Temp Pulse Resp BP Pulse Ox 98.2 F 86 20 127/87 100 02/23/19 07:59 02/23/19 07:59 02/23/19 07:59 02/23/19 07:59 02/23/19 07:59 Temperature -Last 24 Hours Temperature 98.2 F Temperature 98.2 F Temperature 98.2 F Temperature 98.8 F Temperature 98.7 F Temperature 98.2 F - Labs CBC & Chem 7: 02/18/19 22:29 02/22/19 07:40
[2019-02-23] MEDS: POLYETHYLENE GLYCOL 3350 17 GM POWDER PO SCH (10:06)
[2019-02-23] MEDS: amLODIPine 5 MG TAB PO SCH (10:06)
[2019-02-23] MEDS: PANTOPRAZOLE 40 MG TAB PO SCH (10:07)
[2019-02-23] MEDS ORDERED: HEPARIN/NS 5000 UNIT/500ML 500 ML IR ONE (12:06)
[2019-02-23] MEDS ORDERED: SODIUM CHLORIDE 0.9% 250ML 250 ML ONE (12:06)
[2019-02-23] MEDS: fentaNYL 100 MCG/2 ML INJ ONE ×3 (12:26→12:41)
[2019-02-23] MEDS: MIDAZOLAM 2 MG/2 ML INJ ONE ×3 (12:27→12:41)
[2019-02-23] MEDS: LIDOCAINE 1%/EPINEPHRINE 1:100,000 VIAL (20 ML) INFILTRATI ONE ×2 (12:27→12:41)
[2019-02-23] MEDS: HEPARIN 10,000 UNITS/10 ML VIAL ONE ×7 (12:27→13:17)
[2019-02-23] MEDS: HEPARIN 5,000 UNIT/1 ML VIAL SUB-Q SCH ×2 (13:06→22:01)
[2019-02-23] MEDS ORDERED: HEPARIN 10,000 UNITS/10 ML VIAL ONE (13:18)
[2019-02-23] MEDS ORDERED: SODIUM CHLORIDE 0.9% 100 ML IV PRN (13:38)
--- NOTE | 2019-02-23 13:40 | Progress Note ---
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 Has MSSA bacteremia. Repeat blood cultures negative > 48h, for permcath placement today (2) ESRD (end stage renal disease) Current Visit: No Status: Chronic Plan to address problem: For new Permacath placement today, pt's last HD was yesterday, cont on MWF schedule while inpatient (3) Hypertensive chronic kidney disease with stage 5 chronic kidney disease or end stage renal disease Current Visit: No Status: Acute Plan to address problem: Follow blood pressure on current medications (4) Altered mental status Current Visit: No Status: Acute Plan to address problem: Toxic encephalopathy. improving (5) Anemia in CKD (chronic kidney disease) Current Visit: No Status: Acute Qualifiers: Qualified Code(s): N18.5 - Chronic kidney disease, stage 5; D63.1 - Anemia in chronic kidney disease Plan to address problem: Give erythropoietin on dialysis (6) Hyperkalemia Current Visit: No Status: Acute Plan to address problem: Potassium has improved. Monitor potassium daily (7) Hyponatremia Current Visit: Yes Status: Acute Plan to address problem: Hemodialysis for fluid removal. follow repeat BMP Subjective Date of service: 02/23/19 Principal diagnosis: end-stage renal disease with MSSA bacteremia Interval history: Patient awake, alert, in no acute distress Objective - Vital Signs Vital signs: Vital Signs - 12hr 02/23/19 02/23/19 02/23/19 02:53 02:56 07:59 Temperature 98.2 F 98.2 F 98.2 F Pulse Rate 99 H 99 H 86 Respiratory 20 20 20 Rate Blood Pressure 140/73 127/87 Blood Pressure 140/73 [Right] O2 Sat by Pulse 96 95 100 Oximetry 02/23/19 10:00 Temperature Pulse Rate Respiratory 20 Rate Blood Pressure Blood Pressure [Right] O2 Sat by Pulse 100 Oximetry - General Appearance General appearance: well-developed, appears stated age, chronically ill EENT: ATNC, PERRL, mucous membranes moist Neck: no JVD Respiratory: Present: Clear to Ascultation Cardiology: regular, S1S2 Gastrointestinal: normoactive bowel sounds Integumentary: no rash, other (no edema ) Neurologic: no focal deficit, alert and oriented x3, strength 5/5, CN 3-12 intact Psychiatric: mood/affect appropriate, cooperative - Lab 02/18/19 22:29 02/22/19 07:40 Most recent lab results Calcium 9.6 mg/dL (8.4-10.2) 02/22/19 07:40 Medications & Allergies - Medications Allergies/Adverse Reactions: Allergies No Known Allergies Allergy (Verified 08/27/18 16:19) Home Medications: Home Medications Medication Instructions Recorded Confirmed Last Taken Type Epoetin Jeramy 10,000 Unit [Procrit] 10,000 unit IV TUTHSA vial 12/19/18 02/16/19 Unknown Rx Gabapentin 100 mg PO Q8HR 30 Days #90 capsule 12/19/18 02/16/19 Unknown Rx Polyethylene Glycol 3350 [Miralax 17 gm PO QDAY 30 Days powd.pack 12/19/18 02/16/19 Unknown Rx 3350] Sevelamer Carbonate [Renvela] 2,400 mg PO AC 30 Days tablet 12/19/18 02/16/19 Unknown Rx amLODIPine 7.5 mg PO QDAY 30 Days #45 tablet 12/19/18 02/16/19 Unknown Rx oxyCODONE /ACETAMINOPHEN [Percocet 1 tab PO BID PRN #20 tablet 12/19/18 02/16/19 Unknown Rx 5/325 mg] AtorvaSTATin [Lipitor] 20 mg PO QHS 01/05/19 02/16/19 Unknown History Pantoprazole [Protonix TAB] 40 mg PO DAILY #30 tablet 01/08/19 02/16/19 Unknown Rx Active Medications: Generic Name Dose Route Start Last Admin Trade Name Macario PRN Reason Stop Dose Admin Acetaminophen 650 mg 02/15/19 15:27 02/20/19 22:56 Tylenol PO 650 mg Q4H PRN Administration Pain MILD(1-3)/Fever >100.5/NEIL Albuterol 2.5 mg 02/15/19 15:27 Proventil IH Q4HRT PRN Shortness Of Breath Amlodipine Besylate 7.5 mg 02/16/19 10:00 02/23/19 10:06 Amlodipine PO Not Given QDAY ISABELLA Atorvastatin Calcium 20 mg 02/15/19 22:00 02/22/19 21:30 Lipitor PO 20 mg QHS ISABELLA Administration Epoetin Jeramy 10,000 unit 02/16/19 20:15 02/22/19 11:30 Procrit IV 10,000 unit TUTHSA ISABELLA Administration Gabapentin 100 mg 02/15/19 22:00 02/23/19 05:01 Gabapentin PO Not Given Q8HR ISABELLA Heparin Sodium (Porcine) 1,000 unit 02/16/19 11:00 Heparin 10,000 Units/10 Ml IV SISSY PRN hemodialysis Heparin Sodium (Porcine) 5,000 unit 02/16/19 11:00 Heparin IV SISSY PRN hemodialysis Heparin Sodium (Porcine) 5,000 unit 02/16/19 22:00 02/23/19 13:06 Heparin SUB-Q Not Given Q12HR ISABELLA Cefazolin Sodium 1 gm in 50 mls @ 100 mls/hr 02/18/19 18:00 02/22/19 17:07 Ancef/Ns 1 Gm/50 Ml IV 03/18/19 18:29 100 mls/hr QPM ISABELLA Administration Sodium Chloride 100 mls @ 999 mls/hr 02/21/19 10:00 Nacl 0.9% IV SISSY PRN Hypotension Ondansetron HCl 4 mg 02/15/19 15:27 Zofran IV Q8H PRN Nausea And Vomiting Oxycodone/Acetaminophen 1 tab 02/15/19 20:15 Percocet 5/325 PO BID PRN Pain, Moderate (4-6) Pantoprazole Sodium 40 mg 02/16/19 10:00 02/23/19 10:07 Protonix PO Not Given DAILY ISABELLA Polyethylene Glycol 17 gm 02/16/19 10:00 02/23/19 10:06 Miralax 3350 PO Not Given QDAY ISABELLA Sevelamer Carbonate 2,400 mg 02/16/19 07:30 02/23/19 11:50 Renvela PO Not Given AC ISABELLA Sodium Chloride 10 ml 02/15/19 22:00 02/22/19 21:30 Sodium Chloride Flush Syringe 10 Ml IV 10 ml BID ISABELLA Administration Sodium Chloride 10 ml 02/15/19 15:27 Sodium Chloride Flush Syringe 10 Ml IV PRN PRN LINE FLUSH
--- NOTE | 2019-02-23 13:40 | Progress Note ---
Assessment and Plan Assessment and plan: Acute and chronic respiratory failure Admitted to [facility] supplemental oxygen, nebulizer therapy, pulse oximetry, Sepsis due to MSSA Dialysis catheter removed Cefazolin iv as per ID For Permcath placement by vascular Surg today MSSA Bacteremia ID following and recommends Cefazolin iv till 03/18/19 Toxic metabolic encephalopathy. Continue to treat underlying causes History of Septic embolism ESRD (end stage renal disease) Nephrology following, dialysis as per renal team. monitor uop q shift, avoid nephrotoxic agents, DVT prophylaxis SCD to BLE whlile in bed, History Interval history: Patient seen in the [facility]. Patient undergoing permacath placement. Hospitalist Physical - Constitutional Vitals: Temp Pulse Resp BP Pulse Ox 98.2 F 86 20 127/87 100 02/23/19 07:59 02/23/19 07:59 02/23/19 10:00 02/23/19 07:59 02/23/19 10:00 General appearance: Present: no acute distress - EENT Eyes: Present: PERRL, EOM intact ENT: hearing intact, clear oral mucosa, dentition normal - Neck Neck: Present: supple, normal ROM - Respiratory Respiratory effort: normal Respiratory: bilateral: CTA - Cardiovascular Rhythm: regular Heart Sounds: Present: S1 & S2. Absent: gallop, rub - Extremities Extremities: no ischemia, No edema, Full ROM - Abdominal General gastrointestinal: soft, non-tender, non-distended, normal bowel sounds - Integumentary Integumentary: Present: clear, warm, dry - Neurologic Neurologic: CNII-XII intact, moves all extremities Results - Labs CBC & Chem 7: 02/18/19 22:29 02/22/19 07:40 Labs: Laboratory Last Values WBC 7.0 K/mm3 (4.5-11.0) 02/18/19 22:29 RBC 3.68 M/mm3 (3.65-5.03) 02/18/19 22:29 Hgb 10.0 gm/dl (11.8-15.2) L 02/18/19 22:29 Hct 30.5 % (35.5-45.6) L 02/18/19 22:29 MCV 83 fl (84-94) L 02/18/19 22:29 MCH 27 pg (28-32) L 02/18/19 22:29 MCHC 33 % (32-34) 02/18/19 22:29 RDW 18.8 % (13.2-15.2) H 02/18/19 22:29 Plt Count 208 K/mm3 (140-440) 02/18/19 22:29 Lymph % (Auto) 15.9 % (13.4-35.0) 02/16/19 04:25 [place] % (Auto) 12.0 % (0.0-7.3) H 02/16/19 04:25 Eos % (Auto) 1.1 % (0.0-4.3) 02/16/19 04:25 Baso % (Auto) 0.5 % (0.0-1.8) 02/16/19 04:25 Lymph # 1.1 K/mm3 (1.2-5.4) L 02/16/19 04:25 [place] # 0.8 K/mm3 (0.0-0.8) 02/16/19 04:25 Eos # 0.1 K/mm3 (0.0-0.4) 02/16/19 04:25 Baso # 0.0 K/mm3 (0.0-0.1) 02/16/19 04:25 Add Manual Diff Complete 02/18/19 22:29 Total Counted 100 02/18/19 22:29 Seg Neutrophils % 70.5 % (40.0-70.0) H 02/16/19 04:25 Seg Neuts % (Manual) 70.0 % (40.0-70.0) 02/18/19 22:29 Band Neutrophils % 0 % 02/18/19 22:29 Lymphocytes % (Manual) 19.0 % (13.4-35.0) 02/18/19 22:29 Reactive Lymphs % (Man) 0 % 02/18/19 22:29 Monocytes % (Manual) 6.0 % (0.0-7.3) 02/18/19 22:29 Eosinophils % (Manual) 5.0 % (0.0-4.3) H 02/18/19 22:29 Basophils % (Manual) 0 % (0.0-1.8) 02/18/19 22:29 Metamyelocytes % 0 % 02/18/19 22:29 Myelocytes % 0 % 02/18/19 22:29 Promyelocytes % 0 % 02/18/19 22:29 Blast Cells % 0 % 02/18/19 22:29 Nucleated RBC % Not Reportable 02/18/19 22:29 Seg Neutrophils # 4.8 K/mm3 (1.8-7.7) 02/16/19 04:25 Seg Neutrophils # Man 4.9 K/mm3 (1.8-7.7) 02/18/19 22:29 Band Neutrophils # 0.0 K/mm3 02/18/19 22:29 Lymphocytes # (Manual) 1.3 K/mm3 (1.2-5.4) 02/18/19 22:29 Abs React Lymphs (Man) 0.0 K/mm3 02/18/19 22:29 Monocytes # (Manual) 0.4 K/mm3 (0.0-0.8) 02/18/19 22:29 Eosinophils # (Manual) 0.4 K/mm3 (0.0-0.4) 02/18/19 22:29 Basophils # (Manual) 0.0 K/mm3 (0.0-0.1) 02/18/19 22:29 Metamyelocytes # 0.0 K/mm3 02/18/19 22:29 Myelocytes # 0.0 K/mm3 02/18/19 22:29 Promyelocytes # 0.0 K/mm3 02/18/19 22:29 Blast Cells # 0.0 K/mm3 02/18/19 22:29 WBC Morphology Not Reportable 02/18/19 22:29 Hypersegmented Neuts Not Reportable 02/18/19 22:29 Hyposegmented Neuts Not Reportable 02/18/19 22:29 Hypogranular Neuts Not Reportable 02/18/19 22:29 Smudge Cells Not Reportable 02/18/19 22:29 Toxic Granulation Not Reportable 02/18/19 22:29 Toxic Vacuolation Not Reportable 02/18/19 22:29 Dohle Bodies Not Reportable 02/18/19 22:29 Pelger-Huet Anomaly Not Reportable 02/18/19 22:29 Fredi Rods Not Reportable 02/18/19 22:29 Platelet Estimate Consistent w auto 02/18/19 22:29 Clumped Platelets Not Reportable 02/18/19 22:29 Plt Clumps, EDTA Not Reportable 02/18/19 22:29 Large Platelets Not Reportable 02/18/19 22:29 Giant Platelets Not Reportable 02/18/19 22:29 Platelet Satelliting Not Reportable 02/18/19 22:29 Plt Morphology Comment Not Reportable 02/18/19 22:29 RBC Morphology Not Reportable 02/18/19 22:29 Dimorphic RBCs Not Reportable 02/18/19 22:29 Polychromasia Few 02/18/19 22:29 Hypochromasia Not Reportable 02/18/19 22:29 Poikilocytosis Not Reportable 02/18/19 22:29 Anisocytosis Not Reportable 02/18/19 22:29 Microcytosis Few 02/18/19 22:29 Macrocytosis Not Reportable 02/18/19 22:29 Spherocytes Not Reportable 02/18/19 22:29 Pappenheimer Bodies Not Reportable 02/18/19 22:29 Sickle Cells Not Reportable 02/18/19 22:29 Target Cells Few 02/18/19 22:29 Tear Drop Cells Rare 02/18/19 22:29 Ovalocytes Not Reportable 02/18/19 22:29 Helmet Cells Not Reportable 02/18/19 22:29 Monk-Crooks Bodies Not Reportable 02/18/19 22:29 [place] Rings Not Reportable 02/18/19 22:29 [place] Cells Not Reportable 02/18/19 22:29 Bite Cells Not Reportable 02/18/19 22:29 Crenated Cell Not Reportable 02/18/19 22:29 Elliptocytes Not Reportable 02/18/19 22:29 Acanthocytes (Spur) Not Reportable 02/18/19 22:29 Rouleaux Not Reportable 02/18/19 22:29 Hemoglobin C Crystals Not Reportable 02/18/19 22:29 Schistocytes Not Reportable 02/18/19 22:29 Malaria parasites Not Reportable 02/18/19 22:29 Kolby Bodies Not Reportable 02/18/19 22:29 Hem Pathologist Commnt No 02/18/19 22:29 PT 17.6 Sec. (12.2-14.9) H 02/15/19 09:47 INR 1.42 (0.87-1.13) H 02/15/19 09:47 POC ABG pH 7.415 (7.35-7.45) 02/15/19 11:21 POC ABG pCO2 47.3 (35-45) H 02/15/19 11:21 POC ABG pO2 55 (80-105) L 02/15/19 11:21 POC ABG HCO3 30.3 (22-26 mml/L) 02/15/19 11:21 POC ABG Total CO2 32 (23-27mmol/L) 02/15/19 11:21 POC ABG O2 Sat 88 02/15/19 11:21 POC ABG Base Excess 6 ((-2) - (+3)mmol/L) 02/15/19 11:21 VBG pH 7.424 (7.320-7.420) H 02/15/19 09:47 FiO2 21 % 02/15/19 11:21 Sodium 136 mmol/L (137-145) L 02/22/19 07:40 Potassium 4.0 mmol/L (3.6-5.0) 02/22/19 07:40 Chloride 98.1 mmol/L (98-107) 02/22/19 07:40 Carbon Dioxide 22 mmol/L (22-30) 02/22/19 07:40 Anion Gap 20 mmol/L 02/22/19 07:40 BUN 49 mg/dL (9-20) H 02/22/19 07:40 Creatinine 8.0 mg/dL (0.8-1.5) H D 02/22/19 07:40 Estimated GFR 8 ml/min 02/22/19 07:40 BUN/Creatinine Ratio 6 % 02/22/19 07:40 Glucose 93 mg/dL (75-100) 02/22/19 07:40 Lactic Acid 1.00 mmol/L (0.7-2.0) 02/15/19 14:31 Calcium 9.6 mg/dL (8.4-10.2) 02/22/19 07:40 Total Bilirubin 0.50 mg/dL (0.1-1.2) 02/16/19 04:25 AST 29 units/L (5-40) 02/16/19 04:25 ALT 6 units/L (7-56) L 02/16/19 04:25 Alkaline Phosphatase 115 units/L (35-129) 02/16/19 04:25 Ammonia 41.0 umol/L (25-60) 02/15/19 14:31 Total Protein 8.2 g/dL (6.3-8.2) 02/16/19 04:25 Albumin 2.7 g/dL (3.9-5) L 02/16/19 04:25 Albumin/Globulin Ratio 0.5 % 02/16/19 04:25 Random Vancomycin 10.5 ug/mL (0-40.0) 02/17/19 05:54 Hepatitis A IgM Ab Non-reactive (NonReactive) 02/15/19 13:16 Hep Bs Antigen Non-reactive (Negative) 02/15/19 13:16 Hep B Core IgM Ab Non-reactive (NonReactive) 02/15/19 13:16 Hepatitis C Antibody Non-reactive (NonReactive) 02/15/19 13:16 Active Medications - Current Medications Current Medications: Generic Name Dose Route Start Last Admin Trade Name Freq PRN Reason Stop Dose Admin Acetaminophen 650 mg 02/15/19 15:27 02/20/19 22:56 Tylenol PO 650 mg Q4H PRN Administration Pain MILD(1-3)/Fever >100.5/NEIL Albuterol 2.5 mg 02/15/19 15:27 Proventil IH Q4HRT PRN Shortness Of Breath Amlodipine Besylate 7.5 mg 02/16/19 10:00 02/23/19 10:06 Amlodipine PO Not Given QDAY [facility] Atorvastatin Calcium 20 mg 02/15/19 22:00 02/22/19 21:30 Lipitor PO 20 mg QHS [facility] Administration Epoetin Jeramy 10,000 unit 02/16/19 20:15 02/22/19 11:30 Procrit IV 10,000 unit TUTA [facility] Administration Gabapentin 100 mg 02/15/19 22:00 02/23/19 05:01 Gabapentin PO Not Given Q8HR [facility] Heparin Sodium (Porcine) 1,000 unit 02/16/19 11:00 Heparin 10,000 Units/10 Ml IV SISSY PRN hemodialysis Heparin Sodium (Porcine) 5,000 unit 02/16/19 11:00 Heparin IV SISSY PRN hemodialysis Heparin Sodium (Porcine) 5,000 unit 02/16/19 22:00 02/23/19 13:06 Heparin SUB-Q Not Given Q12HR [facility] Cefazolin Sodium 1 gm in 50 mls @ 100 mls/hr 02/18/19 18:00 02/22/19 17:07 Ancef/Ns 1 Gm/50 Ml IV 03/18/19 18:29 100 mls/hr QPM ISABELLA Administration Sodium Chloride 100 mls @ 999 mls/hr 02/21/19 10:00 Nacl 0.9% IV SISSY PRN Hypotension Ondansetron HCl 4 mg 02/15/19 15:27 Zofran IV Q8H PRN Nausea And Vomiting Oxycodone/Acetaminophen 1 tab 02/15/19 20:15 Percocet 5/325 PO BID PRN Pain, Moderate (4-6) Pantoprazole Sodium 40 mg 02/16/19 10:00 02/23/19 10:07 Protonix PO Not Given DAILY ISABELLA Polyethylene Glycol 17 gm 02/16/19 10:00 02/23/19 10:06 Miralax 3350 PO Not Given QDAY ISABELLA Sevelamer Carbonate 2,400 mg 02/16/19 07:30 02/23/19 11:50 Renvela PO Not Given AC ISABELLA Sodium Chloride 10 ml 02/15/19 22:00 02/22/19 21:30 Sodium Chloride Flush Syringe 10 Ml IV 10 ml BID ISABELLA Administration Sodium Chloride 10 ml 02/15/19 15:27 Sodium Chloride Flush Syringe 10 Ml IV PRN PRN LINE FLUSH Nutrition/Malnutrition Assess - Dietary Evaluation Nutrition/Malnutrition Findings: Nutrition Notes Start: 02/22/19 11:27 Freq: Status: Active Protocol: Document 02/22/19 11:27 LM (Rec: 02/22/19 11:29 LM [id number]) Nutrition Notes Need for Assessment generated from: LOS Initial or Follow up Brief Note Percent of energy/protein needs met: Screen for LOS. Pt in HD. 75- 100% intakes in chart. Reviewed previous chart from 01/2019. Pt with no wt lost and good intakes. Nutrition Intervention Revisit per MD consult or patient Sign Off request:
[2019-02-23] MEDS ORDERED: flumazeniL 0.5 MG/5 ML INJ IV ONE ×2 (14:29→14:37)
--- NOTE | 2019-02-23 14:46 | Post Operative Note ---
Date of procedure: 02/23/19 Pre-op diagnosis: ESRD requiring vascath to permcath conversion Post-op diagnosis: same Procedure: Vascath to permcath conversion Anesthesia: local (w/ conscious sedation) Surgeon: LARRY SHINE Estimated blood loss: minimal Condition: stable Disposition: floor
--- NOTE | 2019-02-23 14:48 | Operative Report ---
Operative Report Operative Report: EXAM: 1. Fluoroscopic-guided conversion of a right internal jugular non-tunneled non-cuffed hemodialysis catheter to a tunneled cuffed hemodialysis catheter. DATE: 02/23/19 INDICATION: End-stage renal disease requiring hemodialysis access. MEDICATIONS: Please see nursing report for full details. DEVICES: 23 cm tip to cuff dual lumen hemodialysis catheter, palindrome [employer]LECTRICAL AND [employer]IO MOCK [employer] MECHANIC: LARRY SHINE MD CONTRAST: None PROCEDURE: The risks, benefits, and alternatives were discussed and informed consent was obtained. The patient was transported to the angiography suite in satisfactory/stable condition and was transported onto the angiography table. The patient was prepped and draped in a sterile fashion. The existing vascath was prepped and draped in a sterile fashion. Suture was cut. 0.035 inch wire was advanced through the Vas-Cath into the IVC. Vas-Cath was removed. The wire was cleaned with ChloraPrep. Wire was exchanged for 0.035 inch Amplatz wire with a vertebral catheter. Over the 0.035 inch wire, serial dilatation was performed with ultimate placement of a peel-away sheath. Reverse tunneled PermCath was inserted to the peel-away sheath and positioned in the right atrium. Peel-away sheath removed. A suitable exit site was identified on the patient's chest inferior and lateral to the venotomy. The site was anesthetized with local anesthetic and the track was anesthetized. Dermatotomy was made. Reverse tunneler was then tunneled from dermatotomy to the venotomy site/catheter. The PermCath was attached to the tunneling device and reverse tunneled between the dermatotomy to the venotomy. The catheter was reassembled. Catheter became slightly retracted and therefore to stiff angled Glidewire surpasses the IVC in the catheter was really advanced over the wires into the right atrium. There is also some kinking at the venous access site therefore blunt dissection was performed in order to separate the tissue causing kinking. 4-0 Vicryl suture was used to close the venotomy and Dermabond was then applied. 2-0 Ethilon suture was used to secure the catheter at the dermatotomy. The catheter was charged with heparin 1000 units/mL space. Sterile dressing and Biopatch applied. The patient was transferred from the angiography suite back to the floor in stable condition. FINDINGS: 1. Excellent flow was obtained through the dialysis catheter with 20 mL syringes. 2. The catheter tip is in the right atrium. IMPRESSION: 1. Fluoroscopic-guided conversion of a right internal jugular non-tunneled non- cuffed hemodialysis catheter to a tunneled cuffed hemodialysis catheter.
[2019-02-23] MEDS ORDERED: NALOXONE 0.4 MG/1 ML INJ ONE ×2 (14:51→15:17)
[2019-02-23] MEDS ORDERED: NALOXONE 0.4 MG/1 ML INJ IV ONE ×3 (14:58→16:00)
[2019-02-23] MEDS: ceFAZolin/NS 1 GM/50 ML 1 GM/50 ML BAG IV SCH (17:49)
[2019-02-24] MEDS: oxyCODONE /ACETAMINOPHEN 5-325MG TAB PO PRN ×2 (02:32→21:23)
[2019-02-24 05:49] LABS: Basophils % (Auto) 0.5 % (0.0-1.8); Eosinophils # (Auto) 0.1 K/mm3 (0.0-0.4); Eosinophils % (Auto) 1.6 % (0.0-4.3); Hematocrit 32.9 % (35.5-45.6); Hemoglobin 10.4 gm/dl (11.8-15.2); Lymphocytes # (Auto) 2.5 K/mm3 (1.2-5.4); Lymphocytes % (Auto) 31.2 % (13.4-35.0); Mean Corpuscular HGB Conc 32 % (32-34); Mean Corpuscular Volume 83 fl (84-94); Monocytes % (Auto) 12.8 % (0.0-7.3); Platelet Count 268 K/mm3 (140-440); Red Blood Count 3.97 M/mm3 (3.65-5.03); Red Cell Distribution Width 18.5 % (13.2-15.2)
[2019-02-24 06:12] LABS: Calcium 9.7 mg/dL (8.4-10.2)
--- NOTE | 2019-02-24 10:55 | Progress Note ---
Assessment and Plan Assessment and plan: Acute and chronic respiratory failure Continue supplemental oxygen, nebulizer therapy, pulse oximetry, Sepsis due to MSSA Dialysis catheter removed Cefazolin iv as per ID Permcath placement by vascular Surg 02/23/2019 MSSA Bacteremia ID following and recommends Cefazolin iv till 03/18/19 Toxic metabolic encephalopathy. Continue to treat underlying causes Consider neurology consultation if no significant improvement History of Septic embolism ESRD (end stage renal disease) Nephrology following, dialysis as per renal team. monitor uop q shift, avoid nephrotoxic agents, DVT prophylaxis SCD to BLE whlile in bed, History Interval history: Patient seen in hemodialysis and appears to be somnolent and confused. Hospitalist Physical - Constitutional Vitals: Temp Pulse Resp BP Pulse Ox 97.0 F L 97 H 20 132/76 96 02/24/19 07:28 02/24/19 07:28 02/24/19 07:28 02/24/19 07:28 02/24/19 07:28 General appearance: Present: no acute distress - EENT Eyes: Present: PERRL, EOM intact ENT: hearing intact, clear oral mucosa, dentition normal - Neck Neck: Present: supple, normal ROM - Respiratory Respiratory effort: normal Respiratory: bilateral: CTA - Cardiovascular Rhythm: regular Heart Sounds: Present: S1 & S2. Absent: gallop, rub - Extremities Extremities: no ischemia, No edema, Full ROM - Abdominal General gastrointestinal: soft, non-tender, non-distended, normal bowel sounds - Integumentary Integumentary: Present: clear, warm, dry - Neurologic Neurologic: CNII-XII intact, moves all extremities Results - Labs CBC & Chem 7: 02/24/19 04:42 02/24/19 04:42 Labs: Laboratory Last Values WBC 8.0 K/mm3 (4.5-11.0) 02/24/19 04:42 RBC 3.97 M/mm3 (3.65-5.03) 02/24/19 04:42 Hgb 10.4 gm/dl (11.8-15.2) L 02/24/19 04:42 Hct 32.9 % (35.5-45.6) L 02/24/19 04:42 MCV 83 fl (84-94) L 02/24/19 04:42 MCH 26 pg (28-32) L 02/24/19 04:42 MCHC 32 % (32-34) 02/24/19 04:42 RDW 18.5 % (13.2-15.2) H 02/24/19 04:42 Plt Count 268 K/mm3 (140-440) 02/24/19 04:42 Lymph % (Auto) 31.2 % (13.4-35.0) 02/24/19 04:42 [place] % (Auto) 12.8 % (0.0-7.3) H 02/24/19 04:42 Eos % (Auto) 1.6 % (0.0-4.3) 02/24/19 04:42 Baso % (Auto) 0.5 % (0.0-1.8) 02/24/19 04:42 Lymph # 2.5 K/mm3 (1.2-5.4) 02/24/19 04:42 [place] # 1.0 K/mm3 (0.0-0.8) H 02/24/19 04:42 Eos # 0.1 K/mm3 (0.0-0.4) 02/24/19 04:42 Baso # 0.0 K/mm3 (0.0-0.1) 02/24/19 04:42 Add Manual Diff Complete 02/18/19 22:29 Total Counted 100 02/18/19 22:29 Seg Neutrophils % 53.9 % (40.0-70.0) 02/24/19 04:42 Seg Neuts % (Manual) 70.0 % (40.0-70.0) 02/18/19 22:29 Band Neutrophils % 0 % 02/18/19 22:29 Lymphocytes % (Manual) 19.0 % (13.4-35.0) 02/18/19 22:29 Reactive Lymphs % (Man) 0 % 02/18/19 22:29 Monocytes % (Manual) 6.0 % (0.0-7.3) 02/18/19 22:29 Eosinophils % (Manual) 5.0 % (0.0-4.3) H 02/18/19 22:29 Basophils % (Manual) 0 % (0.0-1.8) 02/18/19 22:29 Metamyelocytes % 0 % 02/18/19 22:29 Myelocytes % 0 % 02/18/19 22:29 Promyelocytes % 0 % 02/18/19 22:29 Blast Cells % 0 % 02/18/19 22:29 Nucleated RBC % Not Reportable 02/18/19 22:29 Seg Neutrophils # 4.3 K/mm3 (1.8-7.7) 02/24/19 04:42 Seg Neutrophils # Man 4.9 K/mm3 (1.8-7.7) 02/18/19 22:29 Band Neutrophils # 0.0 K/mm3 02/18/19 22:29 Lymphocytes # (Manual) 1.3 K/mm3 (1.2-5.4) 02/18/19 22:29 Abs React Lymphs (Man) 0.0 K/mm3 02/18/19 22:29 Monocytes # (Manual) 0.4 K/mm3 (0.0-0.8) 02/18/19 22:29 Eosinophils # (Manual) 0.4 K/mm3 (0.0-0.4) 02/18/19 22:29 Basophils # (Manual) 0.0 K/mm3 (0.0-0.1) 02/18/19 22:29 Metamyelocytes # 0.0 K/mm3 02/18/19 22:29 Myelocytes # 0.0 K/mm3 02/18/19 22:29 Promyelocytes # 0.0 K/mm3 02/18/19 22:29 Blast Cells # 0.0 K/mm3 02/18/19 22:29 WBC Morphology Not Reportable 02/18/19 22:29 Hypersegmented Neuts Not Reportable 02/18/19 22:29 Hyposegmented Neuts Not Reportable 02/18/19 22:29 Hypogranular Neuts Not Reportable 02/18/19 22:29 Smudge Cells Not Reportable 02/18/19 22:29 Toxic Granulation Not Reportable 02/18/19 22:29 Toxic Vacuolation Not Reportable 02/18/19 22:29 Dohle Bodies Not Reportable 02/18/19 22:29 Pelger-Huet Anomaly Not Reportable 02/18/19 22:29 Fredi Rods Not Reportable 02/18/19 22:29 Platelet Estimate Consistent w auto 02/18/19 22:29 Clumped Platelets Not Reportable 02/18/19 22:29 Plt Clumps, EDTA Not Reportable 02/18/19 22:29 Large Platelets Not Reportable 02/18/19 22:29 Giant Platelets Not Reportable 02/18/19 22:29 Platelet Satelliting Not Reportable 02/18/19 22:29 Plt Morphology Comment Not Reportable 02/18/19 22:29 RBC Morphology Not Reportable 02/18/19 22:29 Dimorphic RBCs Not Reportable 02/18/19 22:29 Polychromasia Few 02/18/19 22:29 Hypochromasia Not Reportable 02/18/19 22:29 Poikilocytosis Not Reportable 02/18/19 22:29 Anisocytosis Not Reportable 02/18/19 22:29 Microcytosis Few 02/18/19 22:29 Macrocytosis Not Reportable 02/18/19 22:29 Spherocytes Not Reportable 02/18/19 22:29 Pappenheimer Bodies Not Reportable 02/18/19 22:29 Sickle Cells Not Reportable 02/18/19 22:29 Target Cells Few 02/18/19 22:29 Tear Drop Cells Rare 02/18/19 22:29 Ovalocytes Not Reportable 02/18/19 22:29 Helmet Cells Not Reportable 02/18/19 22:29 Monk-Lamoure Bodies Not Reportable 02/18/19 22:29 Talmage Rings Not Reportable 02/18/19 22:29 [place] Cells Not Reportable 02/18/19 22:29 Bite Cells Not Reportable 02/18/19 22:29 Crenated Cell Not Reportable 02/18/19 22:29 Elliptocytes Not Reportable 02/18/19 22:29 Acanthocytes (Spur) Not Reportable 02/18/19 22:29 Rouleaux Not Reportable 02/18/19 22:29 Hemoglobin C Crystals Not Reportable 02/18/19 22:29 Schistocytes Not Reportable 02/18/19 22:29 Malaria parasites Not Reportable 02/18/19 22:29 Kolby Bodies Not Reportable 02/18/19 22:29 Hem Pathologist Commnt No 02/18/19 22:29 PT 17.6 Sec. (12.2-14.9) H 02/15/19 09:47 INR 1.42 (0.87-1.13) H 02/15/19 09:47 POC ABG pH 7.415 (7.35-7.45) 02/15/19 11:21 POC ABG pCO2 47.3 (35-45) H 02/15/19 11:21 POC ABG pO2 55 (80-105) L 02/15/19 11:21 POC ABG HCO3 30.3 (22-26 mml/L) 02/15/19 11:21 POC ABG Total CO2 32 (23-27mmol/L) 02/15/19 11:21 POC ABG O2 Sat 88 02/15/19 11:21 POC ABG Base Excess 6 ((-2) - (+3)mmol/L) 02/15/19 11:21 VBG pH 7.424 (7.320-7.420) H 02/15/19 09:47 FiO2 21 % 02/15/19 11:21 Sodium 135 mmol/L (137-145) L 02/24/19 04:42 Potassium 4.2 mmol/L (3.6-5.0) 02/24/19 04:42 Chloride 95.7 mmol/L (98-107) L 02/24/19 04:42 Carbon Dioxide 24 mmol/L (22-30) 02/24/19 04:42 Anion Gap 20 mmol/L 02/24/19 04:42 BUN 38 mg/dL (9-20) H 02/24/19 04:42 Creatinine 7.2 mg/dL (0.8-1.5) H 02/24/19 04:42 Estimated GFR 9 ml/min 02/24/19 04:42 BUN/Creatinine Ratio 5 % 02/24/19 04:42 Glucose 96 mg/dL (75-100) 02/24/19 04:42 Lactic Acid 1.00 mmol/L (0.7-2.0) 02/15/19 14:31 Calcium 9.7 mg/dL (8.4-10.2) 02/24/19 04:42 Total Bilirubin 0.50 mg/dL (0.1-1.2) 02/16/19 04:25 AST 29 units/L (5-40) 02/16/19 04:25 ALT 6 units/L (7-56) L 02/16/19 04:25 Alkaline Phosphatase 115 units/L (35-129) 02/16/19 04:25 Ammonia 41.0 umol/L (25-60) 02/15/19 14:31 Total Protein 8.2 g/dL (6.3-8.2) 02/16/19 04:25 Albumin 2.7 g/dL (3.9-5) L 02/16/19 04:25 Albumin/Globulin Ratio 0.5 % 02/16/19 04:25 Random Vancomycin 10.5 ug/mL (0-40.0) 02/17/19 05:54 Hepatitis A IgM Ab Non-reactive (NonReactive) 02/15/19 13:16 Hep Bs Antigen Non-reactive (Negative) 02/15/19 13:16 Hep B Core IgM Ab Non-reactive (NonReactive) 02/15/19 13:16 Hepatitis C Antibody Non-reactive (NonReactive) 02/15/19 13:16 Active Medications - Current Medications Current Medications: Generic Name Dose Route Start Last Admin Trade Name Freq PRN Reason Stop Dose Admin Acetaminophen 650 mg 02/15/19 15:27 02/20/19 22:56 Tylenol PO 650 mg Q4H PRN Administration Pain MILD(1-3)/Fever >100.5/NEIL Albuterol 2.5 mg 02/15/19 15:27 Proventil IH Q4HRT PRN Shortness Of Breath Amlodipine Besylate 7.5 mg 02/16/19 10:00 02/23/19 10:06 Amlodipine PO Not Given QDAY [facility] Atorvastatin Calcium 20 mg 02/15/19 22:00 02/23/19 21:58 Lipitor PO 20 mg QHS ISABELLA Administration Epoetin Jeramy 10,000 unit 02/16/19 20:15 02/22/19 11:30 Procrit IV 10,000 unit TUTHSA [facility] Administration Gabapentin 100 mg 02/15/19 22:00 02/23/19 21:58 Gabapentin PO 100 mg Q8HR ISABELLA Administration Heparin Sodium (Porcine) 1,000 unit 02/16/19 11:00 Heparin 10,000 Units/10 Ml IV SISSY PRN hemodialysis Heparin Sodium (Porcine) 5,000 unit 02/16/19 11:00 Heparin IV SISSY PRN hemodialysis Heparin Sodium (Porcine) 5,000 unit 02/16/19 22:00 02/23/19 22:01 Heparin SUB-Q 5,000 unit Q12HR ISABELLA Administration Cefazolin Sodium 1 gm in 50 mls @ 100 mls/hr 02/18/19 18:00 02/23/19 17:49 Ancef/Ns 1 Gm/50 Ml IV 03/18/19 18:29 100 mls/hr QPM ISABELLA Administration Sodium Chloride 100 mls @ 999 mls/hr 02/21/19 10:00 Nacl 0.9% IV SISSY PRN Hypotension Sodium Chloride 100 mls @ 999 mls/hr 02/23/19 13:38 Nacl 0.9% IV SISSY PRN Hypotension Ondansetron HCl 4 mg 02/15/19 15:27 Zofran IV Q8H PRN Nausea And Vomiting Oxycodone/Acetaminophen 1 tab 02/15/19 20:15 02/24/19 02:32 Percocet 5/325 PO 1 tab BID PRN Administration Pain, Moderate (4-6) Pantoprazole Sodium 40 mg 02/16/19 10:00 02/23/19 10:07 Protonix PO Not Given DAILY ISABELLA Polyethylene Glycol 17 gm 02/16/19 10:00 02/23/19 10:06 Miralax 3350 PO Not Given QDAY ISABELLA Sevelamer Carbonate 2,400 mg 02/16/19 07:30 02/23/19 17:49 Renvela PO 2,400 mg AC ISABELLA Administration Sodium Chloride 10 ml 02/15/19 22:00 02/23/19 21:57 Sodium Chloride Flush Syringe 10 Ml IV 10 ml BID ISABELLA Administration Sodium Chloride 10 ml 02/15/19 15:27 Sodium Chloride Flush Syringe 10 Ml IV PRN PRN LINE FLUSH Nutrition/Malnutrition Assess - Dietary Evaluation Nutrition/Malnutrition Findings: Nutrition Notes Start: 02/22/19 11:27 Freq: Status: Active Protocol: Document 02/22/19 11:27 LM (Rec: 02/22/19 11:29 LM [id number]) Nutrition Notes Need for Assessment generated from: LOS Initial or Follow up Brief Note Percent of energy/protein needs met: Screen for LOS. Pt in HD. 75- 100% intakes in chart. Reviewed previous chart from 01/2019. Pt with no wt lost and good intakes. Nutrition Intervention Revisit per MD consult or patient Sign Off request:
[2019-02-24] MEDS: EPOETIN ALFA 10,000 UNIT/1 ML INJ IV SCH (12:15)
[2019-02-24] MEDS: HEPARIN 5,000 UNIT/1 ML VIAL SUB-Q SCH ×2 (14:33→21:22)
[2019-02-24] MEDS: SEVELAMER CARBONATE 800 MG TAB PO SCH ×3 (15:12→17:20)
[2019-02-24] MEDS: amLODIPine 5 MG TAB PO SCH (15:33)
[2019-02-24] MEDS: GABAPENTIN 100 MG CAP PO SCH ×2 (15:33→21:29)
[2019-02-24] MEDS: PANTOPRAZOLE 40 MG TAB PO SCH (15:33)
[2019-02-24] MEDS: POLYETHYLENE GLYCOL 3350 17 GM POWDER PO SCH (15:34)
[2019-02-24] MEDS: ceFAZolin/NS 1 GM/50 ML 1 GM/50 ML BAG IV SCH (17:19)
--- NOTE | 2019-02-24 18:03 | Progress Note ---
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 Blood cultures now negative and patient has new permacath. Continue antibiotics per infectious disease (2) ESRD (end stage renal disease) Current Visit: No Status: Chronic Plan to address problem: Hemodialysis on a Friday, and Friday schedule (3) Altered mental status Current Visit: No Status: Acute Plan to address problem: Toxic encephalopathy. Consider MRI of the head if mental status not improving. (4) Anemia in CKD (chronic kidney disease) Current Visit: No Status: Acute Qualifiers: Chronic kidney disease stage: stage 5, not on chronic dialysis Qualified Code(s): N18.5 - Chronic kidney disease, stage 5; D63.1 - Anemia in chronic kidney disease Plan to address problem: Give erythropoietin on dialysis (5) Hyperkalemia Current Visit: No Status: Acute Plan to address problem: Potassium has improved. 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 Subjective Date of service: 02/24/19 Principal diagnosis: end-stage renal disease with MSSA bacteremia Interval history: Patient seen lying in bed. No new complaints. A bit confused Objective - Exam Narrative Exam: Frail elderly -[place] male lying in bed in no acute distress HEENT: NCAT, pink oral mucous membrane Neck: Supple, no venous distention CVS: S1S2 RRR with no murmur, rub or gallop Chest: Clear to auscultation Abdomen: Protuberant, soft, nontender, no organomegaly, bowel sounds are present Extremities: Muscle wasting, No edema Genitourinary deferred Neuro: Drowsy, no focal deficits - Vital Signs Vital signs: Vital Signs - 12hr 02/24/19 02/24/19 02/24/19 07:12 07:28 09:15 Temperature 97.0 F L 98.2 F Pulse Rate 97 H 107 H Respiratory 20 20 Rate Blood Pressure 132/76 140/88 O2 Sat by Pulse 96 96 Oximetry O2 Sat by Pulse 98 Oximetry [ Throughout] 02/24/19 02/24/19 02/24/19 09:25 09:30 09:45 Temperature Pulse Rate 115 H 10 L 105 H Respiratory Rate Blood Pressure 136/77 144/76 143/78 O2 Sat by Pulse Oximetry O2 Sat by Pulse Oximetry [ Throughout] 02/24/19 02/24/19 02/24/19 10:00 10:15 10:30 Temperature Pulse Rate 101 H 107 H 111 H Respiratory Rate Blood Pressure 119/67 123/57 107/61 O2 Sat by Pulse 96 Oximetry O2 Sat by Pulse Oximetry [ Throughout] 02/24/19 02/24/19 02/24/19 10:45 11:00 11:15 Temperature Pulse Rate 107 H 120 H 121 H Respiratory Rate Blood Pressure 94/52 107/58 112/64 O2 Sat by Pulse Oximetry O2 Sat by Pulse Oximetry [ Throughout] 02/24/19 02/24/19 02/24/19 11:30 11:45 12:00 Temperature Pulse Rate 89 85 95 H Respiratory Rate Blood Pressure 126/62 115/60 94/59 O2 Sat by Pulse Oximetry O2 Sat by Pulse Oximetry [ Throughout] 02/24/19 02/24/19 02/24/19 12:15 12:30 12:45 Temperature Pulse Rate 96 H 96 H 93 H Respiratory Rate Blood Pressure 120/64 127/66 107/59 O2 Sat by Pulse Oximetry O2 Sat by Pulse Oximetry [ Throughout] 02/24/19 02/24/19 02/24/19 13:00 13:30 15:33 Temperature 98.8 F 99.1 F Pulse Rate 96 H 86 86 Respiratory 18 20 Rate Blood Pressure 107/56 101/63 101/63 O2 Sat by Pulse 94 Oximetry O2 Sat by Pulse 98 Oximetry [ Throughout] - Lab 02/24/19 04:42 02/24/19 04:42 Most recent lab results Calcium 9.7 mg/dL (8.4-10.2) 02/24/19 04:42 Medications & Allergies - Medications Allergies/Adverse Reactions: Allergies No Known Allergies Allergy (Verified 08/27/18 16:19) Home Medications: Home Medications Medication Instructions Recorded Confirmed Last Taken Type Epoetin Jeramy 10,000 Unit [Procrit] 10,000 unit IV TUTHSA vial 12/19/18 02/16/19 Unknown Rx Gabapentin 100 mg PO Q8HR 30 Days #90 capsule 12/19/18 02/16/19 Unknown Rx Polyethylene Glycol 3350 [Miralax 17 gm PO QDAY 30 Days powd.pack 12/19/18 Unknown Rx 3350] Sevelamer Carbonate [Renvela] 2,400 mg PO AC 30 Days tablet 12/19/18 02/16/19 Unknown Rx amLODIPine 7.5 mg PO QDAY 30 Days #45 tablet 12/19/18 02/16/19 Unknown Rx oxyCODONE /ACETAMINOPHEN [Percocet 1 tab PO BID PRN #20 tablet 12/19/18 02/16/19 Unknown Rx 5/325 mg] AtorvaSTATin [Lipitor] 20 mg PO QHS 01/05/19 02/16/19 Unknown History Pantoprazole [Protonix TAB] 40 mg PO DAILY #30 tablet 01/08/19 02/16/19 Unknown Rx Active Medications: Generic Name Dose Route Start Last Admin Trade Name Freq PRN Reason Stop Dose Admin Acetaminophen 650 mg 02/15/19 15:27 02/20/19 22:56 Tylenol PO 650 mg Q4H PRN Administration Pain MILD(1-3)/Fever >100.5/NEIL Albuterol 2.5 mg 02/15/19 15:27 Proventil IH Q4HRT PRN Shortness Of Breath Amlodipine Besylate 7.5 mg 02/16/19 10:00 02/24/19 15:33 Amlodipine PO 7.5 mg QDAY ISABELLA Administration Atorvastatin Calcium 20 mg 02/15/19 22:00 02/23/19 21:58 Lipitor PO 20 mg QHS ISABELLA Administration Epoetin Jeramy 10,000 unit 02/16/19 20:15 02/24/19 12:15 Procrit IV 10,000 unit TUTHSA ISABELLA Administration Gabapentin 100 mg 02/15/19 22:00 02/24/19 15:33 Gabapentin PO 100 mg Q8HR ISABELLA Administration Heparin Sodium (Porcine) 1,000 unit 02/16/19 11:00 Heparin 10,000 Units/10 Ml IV SISSY PRN hemodialysis Heparin Sodium (Porcine) 5,000 unit 02/16/19 11:00 Heparin IV SISSY PRN hemodialysis Heparin Sodium (Porcine) 5,000 unit 02/16/19 22:00 02/24/19 14:33 Heparin SUB-Q 5,000 unit Q12HR ISABELLA Administration Cefazolin Sodium 1 gm in 50 mls @ 100 mls/hr 02/18/19 18:00 02/24/19 17:19 Ancef/Ns 1 Gm/50 Ml IV 03/18/19 18:29 100 mls/hr QPM ISABELLA Administration Sodium Chloride 100 mls @ 999 mls/hr 02/21/19 10:00 Nacl 0.9% IV SISSY PRN Hypotension Sodium Chloride 100 mls @ 999 mls/hr 02/23/19 13:38 Nacl 0.9% IV SISSY PRN Hypotension Ondansetron HCl 4 mg 02/15/19 15:27 Zofran IV Q8H PRN Nausea And Vomiting Oxycodone/Acetaminophen 1 tab 02/15/19 20:15 02/24/19 02:32 Percocet 5/325 PO 1 tab BID PRN Administration Pain, Moderate (4-6) Pantoprazole Sodium 40 mg 02/16/19 10:00 02/24/19 15:33 Protonix PO 40 mg DAILY ISABELLA Administration Polyethylene Glycol 17 gm 02/16/19 10:00 02/24/19 15:34 Miralax 3350 PO 17 gm QDAY ISABELLA Administration Sevelamer Carbonate 2,400 mg 02/16/19 07:30 02/24/19 17:20 Renvela PO 2,400 mg AC ISABELLA Administration Sodium Chloride 10 ml 02/15/19 22:00 02/23/19 21:57 Sodium Chloride Flush Syringe 10 Ml IV 10 ml BID ISABELLA Administration Sodium Chloride 10 ml 02/15/19 15:27 Sodium Chloride Flush Syringe 10 Ml IV PRN PRN LINE FLUSH
[2019-02-25 06:45] LABS: Basophils % (Auto) 0.7 % (0.0-1.8); Eosinophils # (Auto) 0.1 K/mm3 (0.0-0.4); Eosinophils % (Auto) 1.8 % (0.0-4.3); Hematocrit 31.1 % (35.5-45.6); Lymphocytes % (Auto) 29.3 % (13.4-35.0); Mean Corpuscular HGB Conc 32 % (32-34); Mean Corpuscular Volume 81 fl (84-94); Monocytes # (Auto) 0.9 K/mm3 (0.0-0.8); Monocytes % (Auto) 13.2 % (0.0-7.3); Platelet Count 244 K/mm3 (140-440); Red Blood Count 3.85 M/mm3 (3.65-5.03)
[2019-02-25 07:06] LABS: Calcium 9.5 mg/dL (8.4-10.2)
[2019-02-25] MEDS: PANTOPRAZOLE 40 MG TAB PO SCH (09:04)
[2019-02-25] MEDS: amLODIPine 5 MG TAB PO SCH (09:05)
[2019-02-25] MEDS: HEPARIN 5,000 UNIT/1 ML VIAL SUB-Q SCH ×2 (09:08→21:39)
[2019-02-25] MEDS: POLYETHYLENE GLYCOL 3350 17 GM POWDER PO SCH (09:08)
[2019-02-25] MEDS: SEVELAMER CARBONATE 800 MG TAB PO SCH ×4 (09:09→17:05)
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
--- NOTE | 2019-02-25 12:50 | Progress Note ---
Assessment and Plan Assessment and plan: Acute and chronic respiratory failure Continue supplemental oxygen, nebulizer therapy, pulse oximetry, Sepsis due to MSSA Dialysis catheter removed Cefazolin iv as per ID Permcath placement by vascular Surg 02/23/2019 MSSA Bacteremia ID following and recommends Cefazolin iv till 03/18/19 Toxic metabolic encephalopathy. Neurology consulted ? Recurrent CVAs--CTA of the head and neck to rule out Concern for multi-embolic multifocal strokes (from either ITE versus atrial fibrillation), versus PRES, versus multifactorial reasons for altered mental status History of Septic embolism ESRD (end stage renal disease) Nephrology following, dialysis as per renal team. monitor uop q shift, avoid nephrotoxic agents, DVT prophylaxis SCD to BLE whlile in bed, History Interval history: Patient less somnolent today and is alert and oriented to name only. Patient follows simple commands. Patient seen with neurology--? Left-sided weakness. Hospitalist Physical - Constitutional Vitals: Temp Pulse Resp BP Pulse Ox 98.8 F 113 H 20 121/71 92 02/25/19 07:29 02/25/19 09:05 02/25/19 07:29 02/25/19 09:05 02/25/19 07:29 General appearance: Present: no acute distress - EENT Eyes: Present: PERRL, EOM intact ENT: hearing intact, clear oral mucosa, dentition normal - Neck Neck: Present: supple, normal ROM - Respiratory Respiratory effort: normal Respiratory: bilateral: CTA - Cardiovascular Rhythm: regular Heart Sounds: Present: S1 & S2. Absent: gallop, rub - Extremities Extremities: no ischemia, No edema, Full ROM - Abdominal General gastrointestinal: soft, non-tender, non-distended, normal bowel sounds - Integumentary Integumentary: Present: clear, warm, dry - Neurologic Neurologic: CNII-XII intact, moves all extremities Results - Labs CBC & Chem 7: 02/25/19 05:43 02/25/19 05:43 Labs: Laboratory Last Values WBC 6.8 K/mm3 (4.5-11.0) 02/25/19 05:43 RBC 3.85 M/mm3 (3.65-5.03) 02/25/19 05:43 Hgb 10.0 gm/dl (11.8-15.2) L 02/25/19 05:43 Hct 31.1 % (35.5-45.6) L 02/25/19 05:43 MCV 81 fl (84-94) L 02/25/19 05:43 MCH 26 pg (28-32) L 02/25/19 05:43 MCHC 32 % (32-34) 02/25/19 05:43 RDW 19.0 % (13.2-15.2) H 02/25/19 05:43 Plt Count 244 K/mm3 (140-440) 02/25/19 05:43 Lymph % (Auto) 29.3 % (13.4-35.0) 02/25/19 05:43 Nance % (Auto) 13.2 % (0.0-7.3) H 02/25/19 05:43 Eos % (Auto) 1.8 % (0.0-4.3) 02/25/19 05:43 Baso % (Auto) 0.7 % (0.0-1.8) 02/25/19 05:43 Lymph # 2.0 K/mm3 (1.2-5.4) 02/25/19 05:43 Nance # 0.9 K/mm3 (0.0-0.8) H 02/25/19 05:43 Eos # 0.1 K/mm3 (0.0-0.4) 02/25/19 05:43 Baso # 0.0 K/mm3 (0.0-0.1) 02/25/19 05:43 Add Manual Diff Complete 02/18/19 22:29 Total Counted 100 02/18/19 22:29 Seg Neutrophils % 55.0 % (40.0-70.0) 02/25/19 05:43 Seg Neuts % (Manual) 70.0 % (40.0-70.0) 02/18/19 22:29 Band Neutrophils % 0 % 02/18/19 22:29 Lymphocytes % (Manual) 19.0 % (13.4-35.0) 02/18/19 22:29 Reactive Lymphs % (Man) 0 % 02/18/19 22:29 Monocytes % (Manual) 6.0 % (0.0-7.3) 02/18/19 22:29 Eosinophils % (Manual) 5.0 % (0.0-4.3) H 02/18/19 22:29 Basophils % (Manual) 0 % (0.0-1.8) 02/18/19 22:29 Metamyelocytes % 0 % 02/18/19 22: Myelocytes % 0 % 02/18/19 22:29 Promyelocytes % 0 % 02/18/19 22:29 Blast Cells % 0 % 02/18/19 22:29 Nucleated RBC % Not Reportable 02/18/19 22:29 Seg Neutrophils # 3.7 K/mm3 (1.8-7.7) 02/25/19 05:43 Seg Neutrophils # Man 4.9 K/mm3 (1.8-7.7) 02/18/19 22:29 Band Neutrophils # 0.0 K/mm3 02/18/19 22: Lymphocytes # (Manual) 1.3 K/mm3 (1.2-5.4) 02/18/19 22:29 Abs React Lymphs (Man) 0.0 K/mm3 02/18/19 22:29 Monocytes # (Manual) 0.4 K/mm3 (0.0-0.8) 02/18/19 22:29 Eosinophils # (Manual) 0.4 K/mm3 (0.0-0.4) 02/18/19 22:29 Basophils # (Manual) 0.0 K/mm3 (0.0-0.1) 02/18/19 22:29 Metamyelocytes # 0.0 K/mm3 02/18/19 22:29 Myelocytes # 0.0 K/mm3 02/18/19 22:29 Promyelocytes # 0.0 K/mm3 02/18/19 22:29 Blast Cells # 0.0 K/mm3 02/18/19 22:29 WBC Morphology Not Reportable 02/18/19 22:29 Hypersegmented Neuts Not Reportable 02/18/19 22:29 Hyposegmented Neuts Not Reportable 02/18/19 22:29 Hypogranular Neuts Not Reportable 02/18/19 22:29 Smudge Cells Not Reportable 02/18/19 22:29 Toxic Granulation Not Reportable 02/18/19 22:29 Toxic Vacuolation Not Reportable 02/18/19 22:29 Dohle Bodies Not Reportable 02/18/19 22:29 Pelger-Huet Anomaly Not Reportable 02/18/19 22:29 Fredi Rods Not Reportable 02/18/19 22:29 Platelet Estimate Consistent w auto 02/18/19 22:29 Clumped Platelets Not Reportable 02/18/19 22:29 Plt Clumps, EDTA Not Reportable 02/18/19 22:29 Large Platelets Not Reportable 02/18/19 22:29 Giant Platelets Not Reportable 02/18/19 22:29 Platelet Satelliting Not Reportable 02/18/19 22:29 Plt Morphology Comment Not Reportable 02/18/19 22:29 RBC Morphology Not Reportable 02/18/19 22:29 Dimorphic RBCs Not Reportable 02/18/19 22:29 Polychromasia Few 02/18/19 22:29 Hypochromasia Not Reportable 02/18/19 22:29 Poikilocytosis Not Reportable 02/18/19 22:29 Anisocytosis Not Reportable 02/18/19 22:29 Microcytosis Few 02/18/19 22:29 Macrocytosis Not Reportable 02/18/19 22:29 Spherocytes Not Reportable 02/18/19 22:29 Pappenheimer Bodies Not Reportable 02/18/19 22:29 Sickle Cells Not Reportable 02/18/19 22:29 Target Cells Few 02/18/19 22:29 Tear Drop Cells Rare 02/18/19 22:29 Ovalocytes Not Reportable 02/18/19 22:29 Helmet Cells Not Reportable 02/18/19 22:29 Monk-Lilbourn Bodies Not Reportable 02/18/19 22:29 [place] Rings Not Reportable 02/18/19 22:29 [place] Cells Not Reportable 02/18/19 22:29 Bite Cells Not Reportable 02/18/19 22:29 Crenated Cell Not Reportable 02/18/19 22:29 Elliptocytes Not Reportable 02/18/19 22:29 Acanthocytes (Spur) Not Reportable 02/18/19 22:29 Rouleaux Not Reportable 02/18/19 22:29 Hemoglobin C Crystals Not Reportable 02/18/19 22:29 Schistocytes Not Reportable 02/18/19 22:29 Malaria parasites Not Reportable 02/18/19 22:29 Kolby Bodies Not Reportable 02/18/19 22:29 Hem Pathologist Commnt No 02/18/19 22:29 PT 17.6 Sec. (12.2-14.9) H 02/15/19 09:47 INR 1.42 (0.87-1.13) H 02/15/19 09:47 POC ABG pH 7.415 (7.35-7.45) 02/15/19 11:21 POC ABG pCO2 47.3 (35-45) H 02/15/19 11:21 POC ABG pO2 55 (80-105) L 02/15/19 11:21 POC ABG HCO3 30.3 (22-26 mml/L) 02/15/19 11:21 POC ABG Total CO2 32 (23-27mmol/L) 02/15/19 11:21 POC ABG O2 Sat 88 02/15/19 11:21 POC ABG Base Excess 6 ((-2) - (+3)mmol/L) 02/15/19 11:21 VBG pH 7.424 (7.320-7.420) H 02/15/19 09:47 FiO2 21 % 02/15/19 11:21 Sodium 136 mmol/L (137-145) L 02/25/19 05:43 Potassium 3.8 mmol/L (3.6-5.0) 02/25/19 05:43 Chloride 96.4 mmol/L (98-107) L 02/25/19 05:43 Carbon Dioxide 23 mmol/L (22-30) 02/25/19 05:43 Anion Gap 20 mmol/L 02/25/19 05:43 BUN 22 mg/dL (9-20) H 02/25/19 05:43 Creatinine 5.0 mg/dL (0.8-1.5) H 02/25/19 05:43 Estimated GFR 14 ml/min 02/25/19 05:43 BUN/Creatinine Ratio 4 % 02/25/19 05:43 Glucose 82 mg/dL (75-100) 02/25/19 05:43 Lactic Acid 1.00 mmol/L (0.7-2.0) 02/15/19 14:31 Calcium 9.5 mg/dL (8.4-10.2) 02/25/19 05:43 Total Bilirubin 0.50 mg/dL (0.1-1.2) 02/16/19 04:25 AST 29 units/L (5-40) 02/16/19 04:25 ALT 6 units/L (7-56) L 02/16/19 04:25 Alkaline Phosphatase 115 units/L (35-129) 02/16/19 04:25 Ammonia 41.0 umol/L (25-60) 02/15/19 14:31 Total Protein 8.2 g/dL (6.3-8.2) 02/16/19 04:25 Albumin 2.7 g/dL (3.9-5) L 02/16/19 04:25 Albumin/Globulin Ratio 0.5 % 02/16/19 04:25 Random Vancomycin 10.5 ug/mL (0-40.0) 02/17/19 05:54 Hepatitis A IgM Ab Non-reactive (NonReactive) 02/15/19 13:16 Hep Bs Antigen Non-reactive (Negative) 02/15/19 13:16 Hep B Core IgM Ab Non-reactive (NonReactive) 02/15/19 13:16 Hepatitis C Antibody Non-reactive (NonReactive) 02/15/19 13:16 Active Medications - Current Medications Current Medications: Generic Name Dose Route Start Last Admin Trade Name Freq PRN Reason Stop Dose Admin Acetaminophen 650 mg 02/15/19 15:27 02/20/19 22:56 Tylenol PO 650 mg Q4H PRN Administration Pain MILD(1-3)/Fever >100.5/NEIL Albuterol 2.5 mg 02/15/19 15:27 Proventil IH Q4HRT PRN Shortness Of Breath Amlodipine Besylate 7.5 mg 02/16/19 10:00 02/25/19 09:05 Amlodipine PO 7.5 mg QDAY ISABELLA Administration Atorvastatin Calcium 20 mg 02/15/19 22:00 02/24/19 21:24 Lipitor PO 20 mg QHS ISABELLA Administration Epoetin Jeramy 10,000 unit 02/16/19 20:15 02/24/19 12:15 Procrit IV 10,000 unit TUTHSA ISABELLA Administration Gabapentin 100 mg 02/15/19 22:00 02/24/19 21:29 Gabapentin PO 100 mg Q8HR ISABELLA Administration Heparin Sodium (Porcine) 1,000 unit 02/16/19 11:00 Heparin 10,000 Units/10 Ml IV SISSY PRN hemodialysis Heparin Sodium (Porcine) 5,000 unit 02/16/19 11:00 Heparin IV SISSY PRN hemodialysis Heparin Sodium (Porcine) 5,000 unit 02/16/19 22:00 02/25/19 09:08 Heparin SUB-Q 5,000 unit Q12HR ISABELLA Administration Cefazolin Sodium 1 gm in 50 mls @ 100 mls/hr 02/18/19 18:00 02/24/19 17:19 Ancef/Ns 1 Gm/50 Ml IV 03/18/19 18:29 100 mls/hr QPM ISABELLA Administration Sodium Chloride 100 mls @ 999 mls/hr 02/23/19 13:38 Nacl 0.9% IV SISSY PRN Hypotension Ondansetron HCl 4 mg 02/15/19 15:27 Zofran IV Q8H PRN Nausea And Vomiting Oxycodone/Acetaminophen 1 tab 02/15/19 20:15 02/24/19 21:23 Percocet 5/325 PO 1 tab BID PRN Administration Pain, Moderate (4-6) Pantoprazole Sodium 40 mg 02/16/19 10:00 02/25/19 09:04 Protonix PO 40 mg DAILY ISABELLA Administration Polyethylene Glycol 17 gm 02/16/19 10:00 02/25/19 09:08 Miralax 3350 PO 17 gm QDAY ISABELLA Administration Sevelamer Carbonate 2,400 mg 02/16/19 07:30 02/25/19 11:35 Renvela PO 2,400 mg AC ISABELLA Administration Sodium Chloride 10 ml 02/15/19 22:00 02/25/19 11:36 Sodium Chloride Flush Syringe 10 Ml IV 10 ml BID ISABELLA Administration Sodium Chloride 10 ml 02/15/19 15:27 Sodium Chloride Flush Syringe 10 Ml IV PRN PRN LINE FLUSH Nutrition/Malnutrition Assess - Dietary Evaluation Nutrition/Malnutrition Findings: Nutrition Notes Start: 02/22/19 11:27 Freq: Status: Active Protocol: Document 02/22/19 11:27 LM (Rec: 02/22/19 11:29 LM [id number]) Nutrition Notes Need for Assessment generated from: LOS Initial or Follow up Brief Note Percent of energy/protein needs met: Screen for LOS. Pt in HD. 75- 100% intakes in chart. Reviewed previous chart from 01/2019. Pt with no wt lost and good intakes. Nutrition Intervention Revisit per MD consult or patient Sign Off request:
--- NOTE | 2019-02-25 13:54 | Cat Scan Report ---
CT HEAD WITHOUT CONTRAST INDICATION / CLINICAL INFORMATION: LT ARM WEAKNESS. TECHNIQUE: Axial imaging performed from the skull apex through the skull base without the use of cont rast. Sagittal and coronal reformatted images. All CT scans at this location are performed using CT dose reduction for ALARA by means of automated exposure control. COMPARISON: 02/15/2019 FINDINGS: CEREBRAL PARENCHYMA: Mild hypoattenuation throughout the white matter is again noted and unchanged. T his is most likely related to chronic microangiopathy. There is no evidence for hemorrhage, mass, mas s effect or large territorial infarct. HEMORRHAGE: None. EXTRA-AXIAL SPACES: Normal in size and morphology for the patient's age. VENTRICULAR SYSTEM: Normal in size and morphology for the patient's age. MIDLINE SHIFT OR HERNIATION: None. CEREBELLUM / BRAINSTEM: No significant abnormality. CALVARIUM: No significant abnormality. ORBITS: Normal as visualized. PARANASAL SINUSES / MASTOID AIR CELLS: Normal as visualized. SOFT TISSUES of HEAD: No significant abnormality. ADDITIONAL FINDINGS: None. IMPRESSION: No acute intracranial abnormality. Mild chronic white matter changes. No significant change since 02/15/2019. Signer Name: Hemanth Matute Jr, MD Signed: 02/25/2019 1:49 PM Workstation Name: [id number]
[2019-02-25] MEDS: GABAPENTIN 100 MG CAP PO SCH ×2 (15:09→21:31)
--- NOTE | 2019-02-25 16:47 | Progress Note ---
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 Blood cultures now negative and patient has new permacath. Continue antibiotics per infectious disease (2) ESRD (end stage renal disease) Current Visit: No Status: Chronic Plan to address problem: Hemodialysis on a Friday, and Friday schedule (3) Altered mental status Current Visit: No Status: Acute Plan to address problem: Toxic encephalopathy. Neurology input appreciated. Patient is scheduled for MRI of the brain tomorrow. (4) Anemia in CKD (chronic kidney disease) Current Visit: No Status: Acute Qualifiers: Chronic kidney disease stage: stage 5, not on chronic dialysis Qualified Code(s): N18.5 - Chronic kidney disease, stage 5; D63.1 - Anemia in chronic kidney disease Plan to address problem: Give erythropoietin on dialysis (5) Hyperkalemia Current Visit: No Status: Acute Plan to address problem: Potassium has improved. 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 Subjective Date of service: 02/25/19 Principal diagnosis: end-stage renal disease with MSSA bacteremia Interval history: Patient seen lying in bed. No new complaints. Still a bit confused Objective - Exam Narrative Exam: Frail elderly -[place]ian male lying in bed in no acute distress HEENT: NCAT, pink oral mucous membrane Neck: Supple, no venous distention CVS: S1S2 RRR with no murmur, rub or gallop Chest: Clear to auscultation Abdomen: Protuberant, soft, nontender, no organomegaly, bowel sounds are present Extremities: Muscle wasting, No edema Genitourinary deferred Neuro: Drowsy, no focal deficits - Vital Signs Vital signs: Vital Signs - 12hr 02/25/19 02/25/19 02/25/19 07:29 09:05 13:35 Temperature 98.8 F 32.1 F L Pulse Rate 113 H 113 H 104 H Respiratory 20 20 Rate Blood Pressure 121/71 121/71 122/78 O2 Sat by Pulse 92 98 Oximetry - Lab 02/25/19 05:43 02/25/19 05:43 Most recent lab results Calcium 9.5 mg/dL (8.4-10.2) 02/25/19 05:43 Medications & Allergies - Medications Allergies/Adverse Reactions: Allergies No Known Allergies Allergy (Verified 08/27/18 16:19) Home Medications: Home Medications Medication Instructions Recorded Confirmed Last Taken Type Epoetin Jeramy 10,000 Unit [Procrit] 10,000 unit IV TUTHSA vial 12/19/18 02/16/19 Unknown Rx Gabapentin 100 mg PO Q8HR 30 Days #90 capsule 12/19/18 02/16/19 Unknown Rx Polyethylene Glycol 3350 [Miralax 17 gm PO QDAY 30 Days powd.pack 12/19/18 02/16/19 Unknown Rx 3350] Sevelamer Carbonate [Renvela] 2,400 mg PO AC 30 Days tablet 12/19/18 02/16/19 Unknown Rx amLODIPine 7.5 mg PO QDAY 30 Days #45 tablet 12/19/18 02/16/19 Unknown Rx oxyCODONE /ACETAMINOPHEN [Percocet 1 tab PO BID PRN #20 tablet 12/19/18 02/16/19 Unknown Rx 5/325 mg] AtorvaSTATin [Lipitor] 20 mg PO QHS 01/05/19 02/16/19 Unknown History Pantoprazole [Protonix TAB] 40 mg PO DAILY #30 tablet 01/08/19 02/16/19 Unknown Rx Active Medications: Generic Name Dose Route Start Last Admin Trade Name Freq PRN Reason Stop Dose Admin Acetaminophen 650 mg 02/15/19 15:27 02/20/19 22:56 Tylenol PO 650 mg Q4H PRN Administration Pain MILD(1-3)/Fever >100.5/NEIL Albuterol 2.5 mg 02/15/19 15:27 Proventil IH Q4HRT PRN Shortness Of Breath Amlodipine Besylate 7.5 mg 02/16/19 10:00 02/25/19 09:05 Amlodipine PO 7.5 mg QDAY ISABELLA Administration Atorvastatin Calcium 20 mg 02/15/19 22:00 02/24/19 21:24 Lipitor PO 20 mg QHS ISABELLA Administration Epoetin Jeramy 10,000 unit 02/16/19 20:15 02/24/19 12:15 Procrit IV 10,000 unit TUTHSA ISABELLA Administration Gabapentin 100 mg 02/15/19 22:00 02/25/19 15:09 Gabapentin PO 100 mg Q8HR ISABELLA Administration Heparin Sodium (Porcine) 1,000 unit 02/16/19 11:00 Heparin 10,000 Units/10 Ml IV SISSY PRN hemodialysis Heparin Sodium (Porcine) 5,000 unit 02/16/19 11:00 Heparin IV SISSY PRN hemodialysis Heparin Sodium (Porcine) 5,000 unit 02/16/19 22:00 02/25/19 09:08 Heparin SUB-Q 5,000 unit Q12HR ISABELLA Administration Cefazolin Sodium 1 gm in 50 mls @ 100 mls/hr 02/18/19 18:00 02/24/19 17:19 Ancef/Ns 1 Gm/50 Ml IV 03/18/19 18:29 100 mls/hr QPM ISABELLA Administration Sodium Chloride 100 mls @ 999 mls/hr 02/23/19 13:38 Nacl 0.9% IV SISSY PRN Hypotension Ondansetron HCl 4 mg 02/15/19 15:27 Zofran IV Q8H PRN Nausea And Vomiting Oxycodone/Acetaminophen 1 tab 02/15/19 20:15 02/24/19 21:23 Percocet 5/325 PO 1 tab BID PRN Administration Pain, Moderate (4-6) Pantoprazole Sodium 40 mg 02/16/19 10:00 02/25/19 09:04 Protonix PO 40 mg DAILY ISABELLA Administration Polyethylene Glycol 17 gm 02/16/19 10:00 02/25/19 09:08 Miralax 3350 PO 17 gm QDAY ISABELLA Administration Sevelamer Carbonate 2,400 mg 02/16/19 07:30 02/25/19 11:35 Renvela PO 2,400 mg AC ISABELLA Administration Sodium Chloride 10 ml 02/15/19 22:00 02/25/19 11:36 Sodium Chloride Flush Syringe 10 Ml IV 10 ml BID ISABELLA Administration Sodium Chloride 10 ml 02/15/19 15:27 Sodium Chloride Flush Syringe 10 Ml IV PRN PRN LINE FLUSH
[2019-02-25] MEDS: ceFAZolin/NS 1 GM/50 ML 1 GM/50 ML BAG IV SCH (17:07)
[2019-02-26] MEDS: EPOETIN ALFA 10,000 UNIT/1 ML INJ IV SCH (01:37)
[2019-02-26 05:39] LABS: Basophils % (Auto) 0.7 % (0.0-1.8); Eosinophils # (Auto) 0.1 K/mm3 (0.0-0.4); Eosinophils % (Auto) 2.5 % (0.0-4.3); Hemoglobin 9.9 gm/dl (11.8-15.2); Lymphocytes # (Auto) 1.8 K/mm3 (1.2-5.4); Lymphocytes % (Auto) 36.3 % (13.4-35.0); Mean Corpuscular HGB Conc 32 % (32-34); Mean Corpuscular Volume 81 fl (84-94); Monocytes # (Auto) 0.7 K/mm3 (0.0-0.8); Platelet Count 201 K/mm3 (140-440); Red Blood Count 3.81 M/mm3 (3.65-5.03); Red Cell Distribution Width 18.6 % (13.2-15.2)
[2019-02-26 05:59] LABS: Calcium 9.5 mg/dL (8.4-10.2)
[2019-02-26] MEDS: GABAPENTIN 100 MG CAP PO SCH ×4 (07:09→22:02)
[2019-02-26] MEDS: HEPARIN 5,000 UNIT/1 ML VIAL SUB-Q SCH ×2 (10:00→22:01)
--- NOTE | 2019-02-26 11:59 | Progress Note ---
Assessment and Plan Assessment and plan: Acute and chronic respiratory failure Continue supplemental oxygen, nebulizer therapy, pulse oximetry, Sepsis due to MSSA Dialysis catheter removed Cefazolin iv as per ID Permcath placement by vascular Surg 02/23/2019 MSSA Bacteremia ID following and recommends Cefazolin iv till 03/18/19 Toxic metabolic encephalopathy. Neurology following Repeat CT negative for CVA. Concern for multi-embolic multifocal strokes (from either ITE versus atrial fibrillation), versus PRES, versus multifactorial reasons for altered mental status History of Septic embolism ESRD (end stage renal disease) Nephrology following, dialysis as per renal team. monitor uop q shift, avoid nephrotoxic agents, DVT prophylaxis SCD to BLE whlile in bed, History Interval history: Patient less somnolent today and is alert and oriented to name only. Patient follows simple commands. Patient seen with neurology--? Left-sided weakness. Hospitalist Physical - Constitutional Vitals: Temp Pulse Resp BP Pulse Ox 97.6 F 88 18 145/82 98 02/26/19 07:55 02/26/19 11:28 02/26/19 07:55 02/26/19 11:28 02/26/19 07:29 General appearance: Present: no acute distress - EENT Eyes: Present: PERRL, EOM intact ENT: hearing intact, clear oral mucosa, dentition normal - Neck Neck: Present: supple, normal ROM - Respiratory Respiratory effort: normal Respiratory: bilateral: CTA - Cardiovascular Rhythm: regular Heart Sounds: Present: S1 & S2. Absent: gallop, rub - Extremities Extremities: no ischemia, No edema, Full ROM - Abdominal General gastrointestinal: soft, non-tender, non-distended, normal bowel sounds - Integumentary Integumentary: Present: clear, warm, dry - Neurologic Neurologic: CNII-XII intact, moves all extremities Results - Labs CBC & Chem 7: 02/26/19 04:16 02/26/19 04:16 Labs: Laboratory Last Values WBC 5.1 K/mm3 (4.5-11.0) 02/26/19 04:16 RBC 3.81 M/mm3 (3.65-5.03) 02/26/19 04:16 Hgb 9.9 gm/dl (11.8-15.2) L 02/26/19 04:16 Hct 31.0 % (35.5-45.6) L 02/26/19 04:16 MCV 81 fl (84-94) L 02/26/19 04:16 MCH 26 pg (28-32) L 02/26/19 04:16 MCHC 32 % (32-34) 02/26/19 04:16 RDW 18.6 % (13.2-15.2) H 02/26/19 04:16 Plt Count 201 K/mm3 (140-440) 02/26/19 04:16 Lymph % (Auto) 36.3 % (13.4-35.0) H 02/26/19 04:16 [place] % (Auto) 14.0 % (0.0-7.3) H 02/26/19 04:16 Eos % (Auto) 2.5 % (0.0-4.3) 02/26/19 04:16 Baso % (Auto) 0.7 % (0.0-1.8) 02/26/19 04:16 Lymph # 1.8 K/mm3 (1.2-5.4) 02/26/19 04:16 [place] # 0.7 K/mm3 (0.0-0.8) 02/26/19 04:16 Eos # 0.1 K/mm3 (0.0-0.4) 02/26/19 04:16 Baso # 0.0 K/mm3 (0.0-0.1) 02/26/19 04:16 Add Manual Diff Complete 02/18/19 22:29 Total Counted 100 02/18/19 22:29 Seg Neutrophils % 46.5 % (40.0-70.0) 02/26/19 04:16 Seg Neuts % (Manual) 70.0 % (40.0-70.0) 02/18/19 22:29 Band Neutrophils % 0 % 02/18/19 22:29 Lymphocytes % (Manual) 19.0 % (13.4-35.0) 02/18/19 22:29 Reactive Lymphs % (Man) 0 % 02/18/19 22:29 Monocytes % (Manual) 6.0 % (0.0-7.3) 02/18/19 22:29 Eosinophils % (Manual) 5.0 % (0.0-4.3) H 02/18/19 22:29 Basophils % (Manual) 0 % (0.0-1.8) 02/18/19 22:29 Metamyelocytes % 0 % 02/18/19 22:29 Myelocytes % 0 % 02/18/19 22: Promyelocytes % 0 % 02/18/19 22:29 Blast Cells % 0 % 02/18/19 22:29 Nucleated RBC % Not Reportable 02/18/19 22:29 Seg Neutrophils # 2.4 K/mm3 (1.8-7.7) 02/26/19 04:16 Seg Neutrophils # Man 4.9 K/mm3 (1.8-7.7) 02/18/19 22:29 Band Neutrophils # 0.0 K/mm3 02/18/19 22:29 Lymphocytes # (Manual) 1.3 K/mm3 (1.2-5.4) 02/18/19 22:29 Abs React Lymphs (Man) 0.0 K/mm3 02/18/19 22:29 Monocytes # (Manual) 0.4 K/mm3 (0.0-0.8) 02/18/19 22:29 Eosinophils # (Manual) 0.4 K/mm3 (0.0-0.4) 02/18/19 22:29 Basophils # (Manual) 0.0 K/mm3 (0.0-0.1) 02/18/19 22:29 Metamyelocytes # 0.0 K/mm3 02/18/19 22:29 Myelocytes # 0.0 K/mm3 02/18/19 22:29 Promyelocytes # 0.0 K/mm3 02/18/19 22:29 Blast Cells # 0.0 K/mm3 02/18/19 22:29 WBC Morphology Not Reportable 02/18/19 22:29 Hypersegmented Neuts Not Reportable 02/18/19 22:29 Hyposegmented Neuts Not Reportable 02/18/19 22:29 Hypogranular Neuts Not Reportable 02/18/19 22:29 Smudge Cells Not Reportable 02/18/19 22:29 Toxic Granulation Not Reportable 02/18/19 22:29 Toxic Vacuolation Not Reportable 02/18/19 22:29 Dohle Bodies Not Reportable 02/18/19 22:29 Pelger-Huet Anomaly Not Reportable 02/18/19 22:29 Fredi Rods Not Reportable 02/18/19 22:29 Platelet Estimate Consistent w auto 02/18/19 22:29 Clumped Platelets Not Reportable 02/18/19 22:29 Plt Clumps, EDTA Not Reportable 02/18/19 22:29 Large Platelets Not Reportable 02/18/19 22:29 Giant Platelets Not Reportable 02/18/19 22:29 Platelet Satelliting Not Reportable 02/18/19 22:29 Plt Morphology Comment Not Reportable 02/18/19 22:29 RBC Morphology Not Reportable 02/18/19 22:29 Dimorphic RBCs Not Reportable 02/18/19 22:29 Polychromasia Few 02/18/19 22:29 Hypochromasia Not Reportable 02/18/19 22:29 Poikilocytosis Not Reportable 02/18/19 22:29 Anisocytosis Not Reportable 02/18/19 22:29 Microcytosis Few 02/18/19 22:29 Macrocytosis Not Reportable 02/18/19 22:29 Spherocytes Not Reportable 02/18/19 22:29 Pappenheimer Bodies Not Reportable 02/18/19 22:29 Sickle Cells Not Reportable 02/18/19 22:29 Target Cells Few 02/18/19 22:29 Tear Drop Cells Rare 02/18/19 22:29 Ovalocytes Not Reportable 02/18/19 22:29 Helmet Cells Not Reportable 02/18/19 22:29 Monk-Feather Sound Bodies Not Reportable 02/18/19 22:29 Corder Rings Not Reportable 02/18/19 22:29 [place] Cells Not Reportable 02/18/19 22:29 Bite Cells Not Reportable 02/18/19 22:29 Crenated Cell Not Reportable 02/18/19 22:29 Elliptocytes Not Reportable 02/18/19 22:29 Acanthocytes (Spur) Not Reportable 02/18/19 22:29 Rouleaux Not Reportable 02/18/19 22:29 Hemoglobin C Crystals Not Reportable 02/18/19 22:29 Schistocytes Not Reportable 02/18/19 22:29 Malaria parasites Not Reportable 02/18/19 22:29 Kolby Bodies Not Reportable 02/18/19 22:29 Hem Pathologist Commnt No 02/18/19 22:29 PT 17.6 Sec. (12.2-14.9) H 02/15/19 09:47 INR 1.42 (0.87-1.13) H 02/15/19 09:47 POC ABG pH 7.415 (7.35-7.45) 02/15/19 11:21 POC ABG pCO2 47.3 (35-45) H 02/15/19 11:21 POC ABG pO2 55 (80-105) L 02/15/19 11:21 POC ABG HCO3 30.3 (22-26 mml/L) 02/15/19 11:21 POC ABG Total CO2 32 (23-27mmol/L) 02/15/19 11:21 POC ABG O2 Sat 88 02/15/19 11:21 POC ABG Base Excess 6 ((-2) - (+3)mmol/L) 02/15/19 11:21 VBG pH 7.424 (7.320-7.420) H 02/15/19 09:47 FiO2 21 % 02/15/19 11:21 Sodium 136 mmol/L (137-145) L 02/26/19 04:16 Potassium 3.9 mmol/L (3.6-5.0) 02/26/19 04:16 Chloride 96.5 mmol/L (98-107) L 02/26/19 04:16 Carbon Dioxide 22 mmol/L (22-30) 02/26/19 04:16 Anion Gap 21 mmol/L 02/26/19 04:16 BUN 28 mg/dL (9-20) H 02/26/19 04:16 Creatinine 6.0 mg/dL (0.8-1.5) H 02/26/19 04:16 Estimated GFR 11 ml/min 02/26/19 04:16 BUN/Creatinine Ratio 5 % 02/26/19 04:16 Glucose 70 mg/dL (75-100) L 02/26/19 04:16 Lactic Acid 1.00 mmol/L (0.7-2.0) 02/15/19 14:31 Calcium 9.5 mg/dL (8.4-10.2) 02/26/19 04:16 Total Bilirubin 0.50 mg/dL (0.1-1.2) 02/16/19 04:25 AST 29 units/L (5-40) 02/16/19 04:25 ALT 6 units/L (7-56) L 02/16/19 04:25 Alkaline Phosphatase 115 units/L (35-129) 02/16/19 04:25 Ammonia 41.0 umol/L (25-60) 02/15/19 14:31 Total Protein 8.2 g/dL (6.3-8.2) 02/16/19 04:25 Albumin 2.7 g/dL (3.9-5) L 02/16/19 04:25 Albumin/Globulin Ratio 0.5 % 02/16/19 04:25 Random Vancomycin 10.5 ug/mL (0-40.0) 02/17/19 05:54 Hepatitis A IgM Ab Non-reactive (NonReactive) 02/15/19 13:16 Hep Bs Antigen Non-reactive (Negative) 02/15/19 13:16 Hep B Core IgM Ab Non-reactive (NonReactive) 02/15/19 13:16 Hepatitis C Antibody Non-reactive (NonReactive) 02/15/19 13:16 Active Medications - Current Medications Current Medications: Generic Name Dose Route Start Last Admin Trade Name Freq PRN Reason Stop Dose Admin Acetaminophen 650 mg 02/15/19 15:27 02/20/19 22:56 Tylenol PO 650 mg Q4H PRN Administration Pain MILD(1-3)/Fever >100.5/NEIL Albuterol 2.5 mg 02/15/19 15:27 Proventil IH Q4HRT PRN Shortness Of Breath Amlodipine Besylate 7.5 mg 02/16/19 10:00 02/25/19 09:05 Amlodipine PO 7.5 mg QDAY ISABELLA Administration Atorvastatin Calcium 20 mg 02/15/19 22:00 02/25/19 21:31 Lipitor PO 20 mg QHS ISABELLA Administration Epoetin Jeramy 10,000 unit 02/16/19 20:15 02/26/19 01:37 [facility] Not [facility] Gabapentin 100 mg 02/15/19 22:00 02/26/19 07:10 Gabapentin PO 100 mg Q8HR ISABELLA Administration Heparin Sodium (Porcine) 1,000 unit 02/16/19 11:00 Heparin 10,000 Units/10 Ml IV SISSY PRN hemodialysis Heparin Sodium (Porcine) 5,000 unit 02/16/19 11:00 Heparin IV SISSY PRN hemodialysis Heparin Sodium (Porcine) 5,000 unit 02/16/19 22:00 02/25/19 21:39 Heparin SUB-Q 5,000 unit Q12HR ISABELLA Administration Cefazolin Sodium 1 gm in 50 mls @ 100 mls/hr 02/18/19 18:00 02/25/19 17:07 Ancef/Ns 1 Gm/50 Ml IV 03/18/19 18:29 100 mls/hr QPM ISABELLA Administration Sodium Chloride 100 mls @ 999 mls/hr 02/23/19 13:38 Nacl 0.9% IV SISSY PRN Hypotension Ondansetron HCl 4 mg 02/15/19 15:27 Zofran IV Q8H PRN Nausea And Vomiting Oxycodone/Acetaminophen 1 tab 02/15/19 20:15 02/24/19 21:23 Percocet 5/325 PO 1 tab BID PRN Administration Pain, Moderate (4-6) Pantoprazole Sodium 40 mg 02/16/19 10:00 02/25/19 09:04 Protonix PO 40 mg DAILY ISABELLA Administration Polyethylene Glycol 17 gm 02/16/19 10:00 02/25/19 09:08 Miralax 3350 PO 17 gm QDAY ISABELLA Administration Sevelamer Carbonate 2,400 mg 02/16/19 07:30 02/25/19 17:05 Renvela PO 2,400 mg AC ISABELLA Administration Sodium Chloride 10 ml 02/15/19 22:00 02/25/19 21:30 Sodium Chloride Flush Syringe 10 Ml IV 10 ml BID ISABELLA Administration Sodium Chloride 10 ml 02/15/19 15:27 Sodium Chloride Flush Syringe 10 Ml IV PRN PRN LINE FLUSH Nutrition/Malnutrition Assess - Dietary Evaluation Nutrition/Malnutrition Findings: Nutrition Notes Start: 02/22/19 11:27 Freq: Status: Active Protocol: Document 02/22/19 11:27 LM (Rec: 02/22/19 11:29 LM [id number]) Nutrition Notes Need for Assessment generated from: LOS Initial or Follow up Brief Note Percent of energy/protein needs met: Screen for LOS. Pt in HD. 75- 100% intakes in chart. Reviewed previous chart from 01/2019. Pt with no wt lost and good intakes. Nutrition Intervention Revisit per MD consult or patient Sign Off request:
[2019-02-26] MEDS: SEVELAMER CARBONATE 800 MG TAB PO SCH ×2 (14:09→17:19)
[2019-02-26] MEDS: POLYETHYLENE GLYCOL 3350 17 GM POWDER PO SCH (14:10)
[2019-02-26] MEDS: PANTOPRAZOLE 40 MG TAB PO SCH (14:18)
[2019-02-26] MEDS: amLODIPine 5 MG TAB PO SCH (14:18)
[2019-02-26] MEDS: ceFAZolin/NS 1 GM/50 ML 1 GM/50 ML BAG IV SCH (17:20)
[2019-02-26] MEDS ORDERED: SODIUM CHLORIDE*PRIMING MACHINE ONLY FOR DIALYSIS MC ONE (18:56)
--- NOTE | 2019-02-26 19:27 | Progress Note ---
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 Blood cultures now negative and patient has new permacath. Continue antibiotics per infectious disease (2) ESRD (end stage renal disease) Current Visit: No Status: Chronic Plan to address problem: Hemodialysis on a Friday, and Friday schedule (3) Altered mental status Current Visit: No Status: Acute Plan to address problem: Toxic encephalopathy. Neurology input appreciated. Awaiting MRI of the brain (4) Anemia in CKD (chronic kidney disease) Current Visit: No Status: Acute Qualifiers: Chronic kidney disease stage: stage 5, not on chronic dialysis Qualified Code(s): N18.5 - Chronic kidney disease, stage 5; D63.1 - Anemia in chronic kidney disease Plan to address problem: Give erythropoietin on dialysis (5) Hyperkalemia Current Visit: No Status: Acute Plan to address problem: Potassium has improved. 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 Subjective Date of service: 02/26/19 Principal diagnosis: end-stage renal disease with MSSA bacteremia Interval history: Patient seen lying in bed on dialysis this morning. No new complaints. He was a bit drowsy Objective - Exam Narrative Exam: Frail elderly -Slov[place] male lying in bed in no acute distress HEENT: NCAT, pink oral mucous membrane Neck: Supple, no venous distention CVS: S1S2 RRR with no murmur, rub or gallop Chest: Clear to auscultation Abdomen: Protuberant, soft, nontender, no organomegaly, bowel sounds are present Extremities: Muscle wasting, No edema Genitourinary deferred Neuro: Drowsy, no focal deficits - Vital Signs Vital signs: Vital Signs - 12hr 02/26/19 02/26/19 02/26/19 07:29 07:55 08:00 Temperature 97.6 F 97.6 F Pulse Rate 103 H 100 H 94 H Respiratory 18 18 Rate Blood Pressure 131/84 133/80 104/59 O2 Sat by Pulse 98 Oximetry 02/26/19 02/26/19 02/26/19 08:15 08:30 08:45 Temperature Pulse Rate 109 H 94 H 96 H Respiratory Rate Blood Pressure 122/74 141/80 138/76 O2 Sat by Pulse Oximetry 02/26/19 02/26/19 02/26/19 09:00 09:15 09:30 Temperature Pulse Rate 94 H 87 46 L Respiratory Rate Blood Pressure 137/74 151/70 113/77 O2 Sat by Pulse Oximetry 02/26/19 02/26/19 02/26/19 09:45 10:00 10:15 Temperature Pulse Rate 91 H 86 78 Respiratory Rate Blood Pressure 143/78 130/73 127/73 O2 Sat by Pulse Oximetry 02/26/19 02/26/19 02/26/19 10:30 10:45 11:00 Temperature Pulse Rate 79 77 77 Respiratory Rate Blood Pressure 135/73 126/73 136/82 O2 Sat by Pulse Oximetry 02/26/19 02/26/19 02/26/19 11:15 11:28 13:36 Temperature 98.6 F 98.6 F Pulse Rate 77 88 97 H Respiratory 18 18 Rate Blood Pressure 134/72 145/82 118/66 O2 Sat by Pulse 95 Oximetry 02/26/19 15:13 Temperature Pulse Rate Respiratory Rate Blood Pressure O2 Sat by Pulse 96 Oximetry - Lab 02/26/19 04:16 02/26/19 04:16 Most recent lab results Calcium 9.5 mg/dL (8.4-10.2) 02/26/19 04:16 Medications & Allergies - Medications Allergies/Adverse Reactions: Allergies No Known Allergies Allergy (Verified 08/27/18 16:19) Home Medications: Home Medications Medication Instructions Recorded Confirmed Last Taken Type Epoetin Jeramy 10,000 Unit [Procrit] 10,000 unit IV TUTHSA vial 12/19/18 02/16/19 Unknown Rx Gabapentin 100 mg PO Q8HR 30 Days #90 capsule 12/19/18 02/16/19 Unknown Rx Polyethylene Glycol 3350 [Miralax 17 gm PO QDAY 30 Days powd.pack 12/19/18 02/16/19 Unknown Rx 3350] Sevelamer Carbonate [Renvela] 2,400 mg PO AC 30 Days tablet 12/19/18 02/16/19 Unknown Rx amLODIPine 7.5 mg PO QDAY 30 Days #45 tablet 12/19/18 02/16/19 Unknown Rx oxyCODONE /ACETAMINOPHEN [Percocet 1 tab PO BID PRN #20 tablet 12/19/18 02/16/19 Unknown Rx 5/325 mg] AtorvaSTATin [Lipitor] 20 mg PO QHS 01/05/19 02/16/19 Unknown History Pantoprazole [Protonix TAB] 40 mg PO DAILY #30 tablet 01/08/19 02/16/19 Unknown Rx Active Medications: Generic Name Dose Route Start Last Admin Trade Name Freq PRN Reason Stop Dose Admin Acetaminophen 650 mg 02/15/19 15:27 02/20/19 22:56 Tylenol PO 650 mg Q4H PRN Administration Pain MILD(1-3)/Fever >100.5/NEIL Albuterol 2.5 mg 02/15/19 15:27 Proventil IH Q4HRT PRN Shortness Of Breath Amlodipine Besylate 7.5 mg 02/16/19 10:00 02/26/19 14:18 Amlodipine PO 7.5 mg QDAY ISABELLA Administration Atorvastatin Calcium 20 mg 02/15/19 22:00 02/25/19 21:31 Lipitor PO 20 mg QHS ISABELLA Administration Epoetin Jeramy 10,000 unit 02/16/19 20:15 02/26/19 01:37 Procrit IV Not Given [facility] Gabapentin 100 mg 02/15/19 22:00 02/26/19 14:18 Gabapentin PO 100 mg Q8HR ISABELLA Administration Heparin Sodium (Porcine) 1,000 unit 02/16/19 11:00 Heparin 10,000 Units/10 Ml IV SISSY PRN hemodialysis Heparin Sodium (Porcine) 5,000 unit 02/16/19 11:00 Heparin IV SISSY PRN hemodialysis Heparin Sodium (Porcine) 5,000 unit 02/16/19 22:00 02/26/19 10:00 Heparin SUB-Q Not Given Q12HR ISABELLA Cefazolin Sodium 1 gm in 50 mls @ 100 mls/hr 02/18/19 18:00 02/26/19 17:20 Ancef/Ns 1 Gm/50 Ml IV 03/18/19 18:29 100 mls/hr QPM ISABELLA Administration Sodium Chloride 100 mls @ 999 mls/hr 02/23/19 13:38 Nacl 0.9% IV SISSY PRN Hypotension Ondansetron HCl 4 mg 02/15/19 15:27 Zofran IV Q8H PRN Nausea And Vomiting Oxycodone/Acetaminophen 1 tab 02/15/19 20:15 02/24/19 21:23 Percocet 5/325 PO 1 tab BID PRN Administration Pain, Moderate (4-6) Pantoprazole Sodium 40 mg 02/16/19 10:00 02/26/19 14:18 Protonix PO 40 mg DAILY ISABELLA Administration Polyethylene Glycol 17 gm 02/16/19 10:00 02/26/19 14:10 Miralax 3350 PO Not Given QDAY ISABELLA Sevelamer Carbonate 2,400 mg 02/16/19 07:30 02/26/19 17:19 Renvela PO 2,400 mg AC ISABELLA Administration Sodium Chloride 10 ml 02/15/19 22:00 02/26/19 17:21 Sodium Chloride Flush Syringe 10 Ml IV 10 ml BID ISABELLA Administration Sodium Chloride 10 ml 02/15/19 15:27 Sodium Chloride Flush Syringe 10 Ml IV PRN PRN LINE FLUSH
[2019-02-27] MEDS: GABAPENTIN 100 MG CAP PO SCH ×3 (05:31→21:22)
[2019-02-27 07:01] LABS: Basophils % (Auto) 0.6 % (0.0-1.8); Eosinophils # (Auto) 0.1 K/mm3 (0.0-0.4); Eosinophils % (Auto) 1.4 % (0.0-4.3); Hematocrit 31.8 % (35.5-45.6); Hemoglobin 10.2 gm/dl (11.8-15.2); Lymphocytes # (Auto) 2.2 K/mm3 (1.2-5.4); Mean Corpuscular HGB Conc 32 % (32-34); Mean Corpuscular Volume 80 fl (84-94); Monocytes # (Auto) 0.8 K/mm3 (0.0-0.8); Monocytes % (Auto) 12.3 % (0.0-7.3); Platelet Count 196 K/mm3 (140-440); Red Blood Count 3.98 M/mm3 (3.65-5.03); Red Cell Distribution Width 19.2 % (13.2-15.2)
[2019-02-27 07:17] LABS: Calcium 9.1 mg/dL (8.4-10.2)
[2019-02-27] MEDS: SEVELAMER CARBONATE 800 MG TAB PO SCH ×3 (09:56→17:08)
[2019-02-27] MEDS: PANTOPRAZOLE 40 MG TAB PO SCH (09:57)
[2019-02-27] MEDS: amLODIPine 5 MG TAB PO SCH (09:57)
[2019-02-27] MEDS: POLYETHYLENE GLYCOL 3350 17 GM POWDER PO SCH (09:57)
[2019-02-27] MEDS: HEPARIN 5,000 UNIT/1 ML VIAL SUB-Q SCH ×2 (10:00→21:22)
--- NOTE | 2019-02-27 11:29 | Progress Note ---
Assessment and Plan Assessment and plan: Acute and chronic respiratory failure Continue supplemental oxygen, nebulizer therapy, pulse oximetry, Sepsis due to MSSA Dialysis catheter removed Cefazolin iv as per ID Permcath placement by vascular Surg 02/23/2019 MSSA Bacteremia ID following and recommends Cefazolin iv till 03/18/19 Toxic metabolic encephalopathy. Neurology following Repeat CT negative Concern for multi-embolic multifocal strokes (from either ITE versus atrial fibrillation), versus PRES, versus multifactorial reasons for altered mental status MRI 11/2018 negative. Repeat MRI. History of Septic embolism ESRD (end stage renal disease) Nephrology following, dialysis as per renal team. monitor uop q shift, avoid nephrotoxic agents, DVT prophylaxis SCD to BLE whlile in bed, History Interval history: Patient still with intermittent confusion. Hospitalist Physical - Constitutional Vitals: Temp Pulse Resp BP Pulse Ox 97.5 F L 90 18 128/77 92 02/27/19 08:12 02/27/19 08:12 02/27/19 08:12 02/27/19 08:12 02/27/19 08:12 General appearance: Present: no acute distress - EENT Eyes: Present: PERRL, EOM intact ENT: hearing intact, clear oral mucosa, dentition normal - Neck Neck: Present: supple, normal ROM - Respiratory Respiratory effort: normal Respiratory: bilateral: CTA - Cardiovascular Rhythm: regular Heart Sounds: Present: S1 & S2. Absent: gallop, rub - Extremities Extremities: no ischemia, No edema, Full ROM - Abdominal General gastrointestinal: soft, non-tender, non-distended, normal bowel sounds - Integumentary Integumentary: Present: clear, warm, dry - Neurologic Neurologic: CNII-XII intact, moves all extremities Results - Labs CBC & Chem 7: 02/27/19 05:48 02/27/19 05:48 Labs: Laboratory Last Values WBC 6.6 K/mm3 (4.5-11.0) 02/27/19 05:48 RBC 3.98 M/mm3 (3.65-5.03) 02/27/19 05:48 Hgb 10.2 gm/dl (11.8-15.2) L 02/27/19 05:48 Hct 31.8 % (35.5-45.6) L 02/27/19 05:48 MCV 80 fl (84-94) L 02/27/19 05:48 MCH 26 pg (28-32) L 02/27/19 05:48 MCHC 32 % (32-34) 02/27/19 05:48 RDW 19.2 % (13.2-15.2) H 02/27/19 05:48 Plt Count 196 K/mm3 (140-440) 02/27/19 05:48 Lymph % (Auto) 34.0 % (13.4-35.0) 02/27/19 05:48 [place] % (Auto) 12.3 % (0.0-7.3) H 02/27/19 05:48 Eos % (Auto) 1.4 % (0.0-4.3) 02/27/19 05:48 Baso % (Auto) 0.6 % (0.0-1.8) 02/27/19 05:48 Lymph # 2.2 K/mm3 (1.2-5.4) 02/27/19 05:48 [place] # 0.8 K/mm3 (0.0-0.8) 02/27/19 05:48 Eos # 0.1 K/mm3 (0.0-0.4) 02/27/19 05:48 Baso # 0.0 K/mm3 (0.0-0.1) 02/27/19 05:48 Add Manual Diff Complete 02/18/19 22:29 Total Counted 100 02/18/19 22:29 Seg Neutrophils % 51.7 % (40.0-70.0) 02/27/19 05:48 Seg Neuts % (Manual) 70.0 % (40.0-70.0) 02/18/19 22:29 Band Neutrophils % 0 % 02/18/19 22:29 Lymphocytes % (Manual) 19.0 % (13.4-35.0) 02/18/19 22:29 Reactive Lymphs % (Man) 0 % 02/18/19 22:29 Monocytes % (Manual) 6.0 % (0.0-7.3) 02/18/19 22:29 Eosinophils % (Manual) 5.0 % (0.0-4.3) H 02/18/19 22:29 Basophils % (Manual) 0 % (0.0-1.8) 02/18/19 22:29 Metamyelocytes % 0 % 02/18/19 22:29 Myelocytes % 0 % 02/18/19 22: Promyelocytes % 0 % 02/18/19 22:29 Blast Cells % 0 % 02/18/19 22:29 Nucleated RBC % Not Reportable 02/18/19 22:29 Seg Neutrophils # 3.4 K/mm3 (1.8-7.7) 02/27/19 05:48 Seg Neutrophils # Man 4.9 K/mm3 (1.8-7.7) 02/18/19 22:29 Band Neutrophils # 0.0 K/mm3 02/18/19 22:29 Lymphocytes # (Manual) 1.3 K/mm3 (1.2-5.4) 02/18/19 22:29 Abs React Lymphs (Man) 0.0 K/mm3 02/18/19 22:29 Monocytes # (Manual) 0.4 K/mm3 (0.0-0.8) 02/18/19 22:29 Eosinophils # (Manual) 0.4 K/mm3 (0.0-0.4) 02/18/19 22:29 Basophils # (Manual) 0.0 K/mm3 (0.0-0.1) 02/18/19 22:29 Metamyelocytes # 0.0 K/mm3 02/18/19 22:29 Myelocytes # 0.0 K/mm3 02/18/19 22:29 Promyelocytes # 0.0 K/mm3 02/18/19 22:29 Blast Cells # 0.0 K/mm3 02/18/19 22:29 WBC Morphology Not Reportable 02/18/19 22:29 Hypersegmented Neuts Not Reportable 02/18/19 22:29 Hyposegmented Neuts Not Reportable 02/18/19 22:29 Hypogranular Neuts Not Reportable 02/18/19 22:29 Smudge Cells Not Reportable 02/18/19 22:29 Toxic Granulation Not Reportable 02/18/19 22:29 Toxic Vacuolation Not Reportable 02/18/19 22:29 Dohle Bodies Not Reportable 02/18/19 22:29 Pelger-Huet Anomaly Not Reportable 02/18/19 22:29 Fredi Rods Not Reportable 02/18/19 22:29 Platelet Estimate Consistent w auto 02/18/19 22:29 Clumped Platelets Not Reportable 02/18/19 22:29 Plt Clumps, EDTA Not Reportable 02/18/19 22:29 Large Platelets Not Reportable 02/18/19 22:29 Giant Platelets Not Reportable 02/18/19 22:29 Platelet Satelliting Not Reportable 02/18/19 22:29 Plt Morphology Comment Not Reportable 02/18/19 22:29 RBC Morphology Not Reportable 02/18/19 22:29 Dimorphic RBCs Not Reportable 02/18/19 22:29 Polychromasia Few 02/18/19 22:29 Hypochromasia Not Reportable 02/18/19 22:29 Poikilocytosis Not Reportable 02/18/19 22:29 Anisocytosis Not Reportable 02/18/19 22:29 Microcytosis Few 02/18/19 22:29 Macrocytosis Not Reportable 02/18/19 22:29 Spherocytes Not Reportable 02/18/19 22:29 Pappenheimer Bodies Not Reportable 02/18/19 22:29 Sickle Cells Not Reportable 02/18/19 22:29 Target Cells Few 02/18/19 22:29 Tear Drop Cells Rare 02/18/19 22:29 Ovalocytes Not Reportable 02/18/19 22:29 Helmet Cells Not Reportable 02/18/19 22:29 Monk-Encantado Bodies Not Reportable 02/18/19 22:29 [place] Rings Not Reportable 02/18/19 22:29 [place] Cells Not Reportable 02/18/19 22:29 Bite Cells Not Reportable 02/18/19 22:29 Crenated Cell Not Reportable 02/18/19 22:29 Elliptocytes Not Reportable 02/18/19 22:29 Acanthocytes (Spur) Not Reportable 02/18/19 22:29 Rouleaux Not Reportable 02/18/19 22:29 Hemoglobin C Crystals Not Reportable 02/18/19 22:29 Schistocytes Not Reportable 02/18/19 22:29 Malaria parasites Not Reportable 02/18/19 22:29 [place] Bodies Not Reportable 02/18/19 22:29 Hem Pathologist Commnt No 02/18/19 22:29 PT 17.6 Sec. (12.2-14.9) H 02/15/19 09:47 INR 1.42 (0.87-1.13) H 02/15/19 09:47 POC ABG pH 7.415 (7.35-7.45) 02/15/19 11:21 POC ABG pCO2 47.3 (35-45) H 02/15/19 11:21 POC ABG pO2 55 (80-105) L 02/15/19 11:21 POC ABG HCO3 30.3 (22-26 mml/L) 02/15/19 11:21 POC ABG Total CO2 32 (23-27mmol/L) 02/15/19 11:21 POC ABG O2 Sat 88 02/15/19 11:21 POC ABG Base Excess 6 ((-2) - (+3)mmol/L) 02/15/19 11:21 VBG pH 7.424 (7.320-7.420) H 02/15/19 09:47 FiO2 21 % 02/15/19 11:21 Sodium 133 mmol/L (137-145) L 02/27/19 05:48 Potassium 3.7 mmol/L (3.6-5.0) 02/27/19 05:48 Chloride 95.9 mmol/L (98-107) L 02/27/19 05:48 Carbon Dioxide 24 mmol/L (22-30) 02/27/19 05:48 Anion Gap 17 mmol/L 02/27/19 05:48 BUN 17 mg/dL (9-20) 02/27/19 05:48 Creatinine 4.9 mg/dL (0.8-1.5) H 02/27/19 05:48 Estimated GFR 14 ml/min 02/27/19 05:48 BUN/Creatinine Ratio 3 % 02/27/19 05:48 Glucose 84 mg/dL (75-100) 02/27/19 05:48 Lactic Acid 1.00 mmol/L (0.7-2.0) 02/15/19 14:31 Calcium 9.1 mg/dL (8.4-10.2) 02/27/19 05:48 Total Bilirubin 0.50 mg/dL (0.1-1.2) 02/16/19 04:25 AST 29 units/L (5-40) 02/16/19 04:25 ALT 6 units/L (7-56) L 02/16/19 04:25 Alkaline Phosphatase 115 units/L (35-129) 02/16/19 04:25 Ammonia 41.0 umol/L (25-60) 02/15/19 14:31 Total Protein 8.2 g/dL (6.3-8.2) 02/16/19 04:25 Albumin 2.7 g/dL (3.9-5) L 02/16/19 04:25 Albumin/Globulin Ratio 0.5 % 02/16/19 04:25 Random Vancomycin 10.5 ug/mL (0-40.0) 02/17/19 05:54 Hepatitis A IgM Ab Non-reactive (NonReactive) 02/15/19 13:16 Hep Bs Antigen Non-reactive (Negative) 02/15/19 13:16 Hep B Core IgM Ab Non-reactive (NonReactive) 02/15/19 13:16 Hepatitis C Antibody Non-reactive (NonReactive) 02/15/19 13:16 Active Medications - Current Medications Current Medications: Generic Name Dose Route Start Last Admin Trade Name Freq PRN Reason Stop Dose Admin Acetaminophen 650 mg 02/15/19 15:27 02/20/19 22:56 Tylenol PO 650 mg Q4H PRN Administration Pain MILD(1-3)/Fever >100.5/NEIL Albuterol 2.5 mg 02/15/19 15:27 Proventil IH Q4HRT PRN Shortness Of Breath Amlodipine Besylate 7.5 mg 02/16/19 10:00 02/27/19 09:57 Amlodipine PO 7.5 mg QDAY ISABELLA Administration Atorvastatin Calcium 20 mg 02/15/19 22:00 02/26/19 22:01 Lipitor PO 20 mg QHS ISABELLA Administration Epoetin Jeramy 10,000 unit 02/16/19 20:15 02/26/19 01:37 Procrit IV Not Given [facility] Gabapentin 100 mg 02/15/19 22:00 02/27/19 05:31 Gabapentin PO 100 mg Q8HR ISABELLA Administration Heparin Sodium (Porcine) 1,000 unit 02/16/19 11:00 Heparin 10,000 Units/10 Ml IV SISSY PRN hemodialysis Heparin Sodium (Porcine) 5,000 unit 02/16/19 11:00 Heparin IV SISSY PRN hemodialysis Heparin Sodium (Porcine) 5,000 unit 02/16/19 22:00 02/27/19 10:00 Heparin SUB-Q 5,000 unit Q12HR ISABELLA Administration Cefazolin Sodium 1 gm in 50 mls @ 100 mls/hr 02/18/19 18:00 02/26/19 17:20 Ancef/Ns 1 Gm/50 Ml IV 03/18/19 18:29 100 mls/hr QPM ISABELLA Administration Sodium Chloride 100 mls @ 999 mls/hr 02/23/19 13:38 Nacl 0.9% IV SISSY PRN Hypotension Ondansetron HCl 4 mg 02/15/19 15:27 Zofran IV Q8H PRN Nausea And Vomiting Oxycodone/Acetaminophen 1 tab 02/15/19 20:15 02/24/19 21:23 Percocet 5/325 PO 1 tab BID PRN Administration Pain, Moderate (4-6) Pantoprazole Sodium 40 mg 02/16/19 10:00 02/27/19 09:57 Protonix PO 40 mg DAILY ISABELLA Administration Polyethylene Glycol 17 gm 02/16/19 10:00 02/27/19 09:57 Miralax 3350 PO 17 gm QDAY ISABELLA Administration Sevelamer Carbonate 2,400 mg 02/16/19 07:30 02/27/19 09:56 Renvela PO 2,400 mg AC ISABELLA Administration Sodium Chloride 10 ml 02/15/19 22:00 02/26/19 22:02 Sodium Chloride Flush Syringe 10 Ml IV 10 ml BID ISABELLA Administration Sodium Chloride 10 ml 02/15/19 15:27 Sodium Chloride Flush Syringe 10 Ml IV PRN PRN LINE FLUSH Nutrition/Malnutrition Assess - Dietary Evaluation Nutrition/Malnutrition Findings: Nutrition Notes Start: 02/22/19 11:27 Freq: Status: Active Protocol: Document 02/22/19 11:27 LM (Rec: 02/22/19 11:29 LM [id number]) Nutrition Notes Need for Assessment generated from: LOS Initial or Follow up Brief Note Percent of energy/protein needs met: Screen for LOS. Pt in HD. 75- 100% intakes in chart. Reviewed previous chart from 01/2019. Pt with no wt lost and good intakes. Nutrition Intervention Revisit per MD consult or patient Sign Off request:
--- NOTE | 2019-02-27 14:57 | Progress Note ---
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 Blood cultures now negative and patient has new permacath. Continue antibiotics per infectious disease (2) ESRD (end stage renal disease) Current Visit: No Status: Chronic Plan to address problem: Hemodialysis on a Friday, and Friday schedule (3) Altered mental status Current Visit: No Status: Acute Plan to address problem: Toxic encephalopathy. Neurology input appreciated. Awaiting MRI of the brain (4) Anemia in CKD (chronic kidney disease) Current Visit: No Status: Acute Qualifiers: Chronic kidney disease stage: stage 5, not on chronic dialysis Qualified Code(s): N18.5 - Chronic kidney disease, stage 5; D63.1 - Anemia in chronic kidney disease Plan to address problem: Give erythropoietin on dialysis (5) Hyperkalemia Current Visit: No Status: Acute Plan to address problem: Potassium has improved. 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 Increase fluid removal on dialysis and follow-up sodium. Subjective Date of service: 02/27/19 Principal diagnosis: end-stage renal disease with MSSA bacteremia Interval history: Patient seen lying in bed. No new complaints. He is a bit drowsy Objective - Exam Narrative Exam: Frail elderly -[place] male lying in bed in no acute distress HEENT: NCAT, pink oral mucous membrane Neck: Supple, no venous distention CVS: S1S2 RRR with no murmur, rub or gallop Chest: Clear to auscultation Abdomen: Protuberant, soft, nontender, no organomegaly, bowel sounds are present Extremities: Muscle wasting, No edema Genitourinary deferred Neuro: Drowsy, no focal deficits - Vital Signs Vital signs: Vital Signs - 12hr 02/27/19 02/27/19 02/27/19 03:00 03:15 08:12 Temperature 98.9 F 97.5 F L Pulse Rate 99 H 107 H 90 Respiratory 18 18 Rate Blood Pressure 128/77 Blood Pressure 111/69 [Right] O2 Sat by Pulse 95 92 Oximetry 02/27/19 10:00 Temperature Pulse Rate Respiratory 18 Rate Blood Pressure Blood Pressure [Right] O2 Sat by Pulse 92 Oximetry - Lab 02/27/19 05:48 02/27/19 05:48 Most recent lab results Calcium 9.1 mg/dL (8.4-10.2) 02/27/19 05:48 Medications & Allergies - Medications Allergies/Adverse Reactions: Allergies No Known Allergies Allergy (Verified 08/27/18 16:19) Home Medications: Home Medications Medication Instructions Recorded Confirmed Last Taken Type Epoetin Jeramy 10,000 Unit [Procrit] 10,000 unit IV TUTHSA vial 12/19/18 02/16/19 Unknown Rx Gabapentin 100 mg PO Q8HR 30 Days #90 capsule 12/19/18 02/16/19 Unknown Rx Polyethylene Glycol 3350 [Miralax 17 gm PO QDAY 30 Days powd.pack 12/19/18 02/16/19 Unknown Rx 3350] Sevelamer Carbonate [Renvela] 2,400 mg PO AC 30 Days tablet 12/19/18 02/16/19 Unknown Rx amLODIPine 7.5 mg PO QDAY 30 Days #45 tablet 12/19/18 02/16/19 Unknown Rx oxyCODONE /ACETAMINOPHEN [Percocet 1 tab PO BID PRN #20 tablet 12/19/18 02/16/19 Unknown Rx 5/325 mg] AtorvaSTATin [Lipitor] 20 mg PO QHS 01/05/19 02/16/19 Unknown History Pantoprazole [Protonix TAB] 40 mg PO DAILY #30 tablet 01/08/19 02/16/19 Unknown Rx Active Medications: Generic Name Dose Route Start Last Admin Trade Name Freq PRN Reason Stop Dose Admin Acetaminophen 650 mg 02/15/19 15:27 02/20/19 22:56 Tylenol PO 650 mg Q4H PRN Administration Pain MILD(1-3)/Fever >100.5/NEIL Albuterol 2.5 mg 02/15/19 15:27 Proventil IH Q4HRT PRN Shortness Of Breath Amlodipine Besylate 7.5 mg 02/16/19 10:00 02/27/19 09:57 Amlodipine PO 7.5 mg QDAY ISABELLA Administration Atorvastatin Calcium 20 mg 02/15/19 22:00 02/26/19 22:01 Lipitor PO 20 mg QHS ISABELLA Administration Epoetin Jeramy 10,000 unit 02/16/19 20:15 02/26/19 01:37 Procrit IV Not Given TUTHSA ISABELLA Gabapentin 100 mg 02/15/19 22:00 02/27/19 05:31 Gabapentin PO 100 mg Q8HR ISABELLA Administration Heparin Sodium (Porcine) 1,000 unit 02/16/19 11:00 Heparin 10,000 Units/10 Ml IV SISSY PRN hemodialysis Heparin Sodium (Porcine) 5,000 unit 02/16/19 11:00 Heparin IV SISSY PRN hemodialysis Heparin Sodium (Porcine) 5,000 unit 02/16/19 22:00 02/27/19 10:00 Heparin SUB-Q 5,000 unit Q12HR ISABELLA Administration Cefazolin Sodium 1 gm in 50 mls @ 100 mls/hr 02/18/19 18:00 02/26/19 17:20 Ancef/Ns 1 Gm/50 Ml IV 03/18/19 18:29 100 mls/hr QPM ISABELLA Administration Sodium Chloride 100 mls @ 999 mls/hr 02/23/19 13:38 Nacl 0.9% IV SISSY PRN Hypotension Ondansetron HCl 4 mg 02/15/19 15:27 Zofran IV Q8H PRN Nausea And Vomiting Oxycodone/Acetaminophen 1 tab 02/15/19 20:15 02/24/19 21:23 Percocet 5/325 PO 1 tab BID PRN Administration Pain, Moderate (4-6) Pantoprazole Sodium 40 mg 02/16/19 10:00 02/27/19 09:57 Protonix PO 40 mg DAILY ISABELLA Administration Polyethylene Glycol 17 gm 02/16/19 10:00 02/27/19 09:57 Miralax 3350 PO 17 gm QDAY ISABELLA Administration Sevelamer Carbonate 2,400 mg 02/16/19 07:30 02/27/19 09:56 Renvela PO 2,400 mg AC ISABELLA Administration Sodium Chloride 10 ml 02/15/19 22:00 02/26/19 22:02 Sodium Chloride Flush Syringe 10 Ml IV 10 ml BID ISABELLA Administration Sodium Chloride 10 ml 02/15/19 15:27 Sodium Chloride Flush Syringe 10 Ml IV PRN PRN LINE FLUSH
[2019-02-27] MEDS: ceFAZolin/NS 1 GM/50 ML 1 GM/50 ML BAG IV SCH (17:09)
--- NOTE | 2019-02-28 08:13 | Progress Note ---
Assessment and Plan Assessment and plan: Acute and chronic respiratory failure Continue supplemental oxygen, nebulizer therapy, pulse oximetry, Sepsis due to MSSA Dialysis catheter removed Cefazolin iv as per ID Permcath placement by vascular Surg 02/23/2019 Blood cultures now negative and patient has new permacath MSSA Bacteremia ID following and recommends Cefazolin iv till 03/18/19 Toxic metabolic encephalopathy. Neurology following Repeat CT negative Concern for multi-embolic multifocal strokes (from either ITE versus atrial fibr illation), versus PRES, versus multifactorial reasons for altered mental status MRI 11/2018 negative. Repeat MRI. History of Septic embolism ESRD (end stage renal disease) Nephrology following, dialysis as per renal team. monitor uop q shift, avoid nephrotoxic agents, DVT prophylaxis SCD to BLE whlile in bed, History Interval history: Patient still with intermittent confusion. Hospitalist Physical - Constitutional Vitals: Temp Pulse Resp BP Pulse Ox 97.4 F L 85 18 116/82 94 02/28/19 03:01 02/28/19 03:01 02/28/19 03:01 02/28/19 03:01 02/28/19 03:01 General appearance: Present: no acute distress - EENT Eyes: Present: PERRL, EOM intact ENT: hearing intact, clear oral mucosa, dentition normal - Neck Neck: Present: supple, normal ROM - Respiratory Respiratory effort: normal Respiratory: bilateral: CTA - Cardiovascular Rhythm: regular Heart Sounds: Present: S1 & S2. Absent: gallop, rub - Extremities Extremities: no ischemia, No edema, Full ROM - Abdominal General gastrointestinal: soft, non-tender, non-distended, normal bowel sounds - Integumentary Integumentary: Present: clear, warm, dry - Neurologic Neurologic: moves all extremities, other (Encephalopathic) Results - Labs CBC & Chem 7: 02/27/19 05:48 02/27/19 05:48 Labs: Laboratory Last Values WBC 6.6 K/mm3 (4.5-11.0) 02/27/19 05:48 RBC 3.98 M/mm3 (3.65-5.03) 02/27/19 05:48 Hgb 10.2 gm/dl (11.8-15.2) L 02/27/19 05:48 Hct 31.8 % (35.5-45.6) L 02/27/19 05:48 MCV 80 fl (84-94) L 02/27/19 05:48 MCH 26 pg (28-32) L 02/27/19 05:48 MCHC 32 % (32-34) 02/27/19 05:48 RDW 19.2 % (13.2-15.2) H 02/27/19 05:48 Plt Count 196 K/mm3 (140-440) 02/27/19 05:48 Lymph % (Auto) 34.0 % (13.4-35.0) 02/27/19 05:48 [place] % (Auto) 12.3 % (0.0-7.3) H 02/27/19 05:48 Eos % (Auto) 1.4 % (0.0-4.3) 02/27/19 05:48 Baso % (Auto) 0.6 % (0.0-1.8) 02/27/19 05:48 Lymph # 2.2 K/mm3 (1.2-5.4) 02/27/19 05:48 [place] # 0.8 K/mm3 (0.0-0.8) 02/27/19 05:48 Eos # 0.1 K/mm3 (0.0-0.4) 02/27/19 05:48 Baso # 0.0 K/mm3 (0.0-0.1) 02/27/19 05:48 Add Manual Diff Complete 02/18/19 22:29 Total Counted 100 02/18/19 22:29 Seg Neutrophils % 51.7 % (40.0-70.0) 02/27/19 05:48 Seg Neuts % (Manual) 70.0 % (40.0-70.0) 02/18/19 22:29 Band Neutrophils % 0 % 02/18/19 22:29 Lymphocytes % (Manual) 19.0 % (13.4-35.0) 02/18/19 22:29 Reactive Lymphs % (Man) 0 % 02/18/19 22:29 Monocytes % (Manual) 6.0 % (0.0-7.3) 02/18/19 22:29 Eosinophils % (Manual) 5.0 % (0.0-4.3) H 02/18/19 22:29 Basophils % (Manual) 0 % (0.0-1.8) 02/18/19 22:29 Metamyelocytes % 0 % 02/18/19 22:29 Myelocytes % 0 % 02/18/19 22:29 Promyelocytes % 0 % 02/18/19 22:29 Blast Cells % 0 % 02/18/19 22:29 Nucleated RBC % Not Reportable 02/18/19 22:29 Seg Neutrophils # 3.4 K/mm3 (1.8-7.7) 02/27/19 05:48 Seg Neutrophils # Man 4.9 K/mm3 (1.8-7.7) 02/18/19 22:29 Band Neutrophils # 0.0 K/mm3 02/18/19 22:29 Lymphocytes # (Manual) 1.3 K/mm3 (1.2-5.4) 02/18/19 22:29 Abs React Lymphs (Man) 0.0 K/mm3 02/18/19 22:29 Monocytes # (Manual) 0.4 K/mm3 (0.0-0.8) 02/18/19 22:29 Eosinophils # (Manual) 0.4 K/mm3 (0.0-0.4) 02/18/19 22:29 Basophils # (Manual) 0.0 K/mm3 (0.0-0.1) 02/18/19 22:29 Metamyelocytes # 0.0 K/mm3 02/18/19 22:29 Myelocytes # 0.0 K/mm3 02/18/19 22:29 Promyelocytes # 0.0 K/mm3 02/18/19 22:29 Blast Cells # 0.0 K/mm3 02/18/19 22:29 WBC Morphology Not Reportable 02/18/19 22:29 Hypersegmented Neuts Not Reportable 02/18/19 22:29 Hyposegmented Neuts Not Reportable 02/18/19 22:29 Hypogranular Neuts Not Reportable 02/18/19 22:29 Smudge Cells Not Reportable 02/18/19 22:29 Toxic Granulation Not Reportable 02/18/19 22:29 Toxic Vacuolation Not Reportable 02/18/19 22:29 Dohle Bodies Not Reportable 02/18/19 22:29 Pelger-Huet Anomaly Not Reportable 02/18/19 22:29 Fredi Rods Not Reportable 02/18/19 22:29 Platelet Estimate Consistent w auto 02/18/19 22:29 Clumped Platelets Not Reportable 02/18/19 22:29 Plt Clumps, EDTA Not Reportable 02/18/19 22:29 Large Platelets Not Reportable 02/18/19 22:29 Giant Platelets Not Reportable 02/18/19 22:29 Platelet Satelliting Not Reportable 02/18/19 22:29 Plt Morphology Comment Not Reportable 02/18/19 22:29 RBC Morphology Not Reportable 02/18/19 22:29 Dimorphic RBCs Not Reportable 02/18/19 22:29 Polychromasia Few 02/18/19 22:29 Hypochromasia Not Reportable 02/18/19 22:29 Poikilocytosis Not Reportable 02/18/19 22:29 Anisocytosis Not Reportable 02/18/19 22:29 Microcytosis Few 02/18/19 22:29 Macrocytosis Not Reportable 02/18/19 22:29 Spherocytes Not Reportable 02/18/19 22:29 Pappenheimer Bodies Not Reportable 02/18/19 22:29 Sickle Cells Not Reportable 02/18/19 22:29 Target Cells Few 02/18/19 22:29 Tear Drop Cells Rare 02/18/19 22:29 Ovalocytes Not Reportable 02/18/19 22:29 Helmet Cells Not Reportable 02/18/19 22:29 [place] Bodies Not Reportable 02/18/19 22:29 [place] Rings Not Reportable 02/18/19 22:29 [place] Cells Not Reportable 02/18/19 22:29 Bite Cells Not Reportable 02/18/19 22:29 Crenated Cell Not Reportable 02/18/19 22:29 Elliptocytes Not Reportable 02/18/19 22:29 Acanthocytes (Spur) Not Reportable 02/18/19 22:29 Rouleaux Not Reportable 02/18/19 22:29 Hemoglobin C Crystals Not Reportable 02/18/19 22:29 Schistocytes Not Reportable 02/18/19 22:29 Malaria parasites Not Reportable 02/18/19 22:29 [place] Bodies Not Reportable 02/18/19 22:29 Hem Pathologist Commnt No 02/18/19 22:29 PT 17.6 Sec. (12.2-14.9) H 02/15/19 09:47 INR 1.42 (0.87-1.13) H 02/15/19 09:47 POC ABG pH 7.415 (7.35-7.45) 02/15/19 11:21 POC ABG pCO2 47.3 (35-45) H 02/15/19 11:21 POC ABG pO2 55 (80-105) L 02/15/19 11:21 POC ABG HCO3 30.3 (22-26 mml/L) 02/15/19 11:21 POC ABG Total CO2 32 (23-27mmol/L) 02/15/19 11:21 POC ABG O2 Sat 88 02/15/19 11:21 POC ABG Base Excess 6 ((-2) - (+3)mmol/L) 02/15/19 11:21 VBG pH 7.424 (7.320-7.420) H 02/15/19 09:47 FiO2 21 % 02/15/19 11:21 Sodium 133 mmol/L (137-145) L 02/27/19 05:48 Potassium 3.7 mmol/L (3.6-5.0) 02/27/19 05:48 Chloride 95.9 mmol/L (98-107) L 02/27/19 05:48 Carbon Dioxide 24 mmol/L (22-30) 02/27/19 05:48 Anion Gap 17 mmol/L 02/27/19 05:48 BUN 17 mg/dL (9-20) 02/27/19 05:48 Creatinine 4.9 mg/dL (0.8-1.5) H 02/27/19 05:48 Estimated GFR 14 ml/min 02/27/19 05:48 BUN/Creatinine Ratio 3 % 02/27/19 05:48 Glucose 84 mg/dL (75-100) 02/27/19 05:48 Lactic Acid 1.00 mmol/L (0.7-2.0) 02/15/19 14:31 Calcium 9.1 mg/dL (8.4-10.2) 02/27/19 05:48 Total Bilirubin 0.50 mg/dL (0.1-1.2) 02/16/19 04:25 AST 29 units/L (5-40) 02/16/19 04:25 ALT 6 units/L (7-56) L 02/16/19 04:25 Alkaline Phosphatase 115 units/L (35-129) 02/16/19 04:25 Ammonia 41.0 umol/L (25-60) 02/15/19 14:31 Total Protein 8.2 g/dL (6.3-8.2) 02/16/19 04:25 Albumin 2.7 g/dL (3.9-5) L 02/16/19 04:25 Albumin/Globulin Ratio 0.5 % 02/16/19 04:25 Random Vancomycin 10.5 ug/mL (0-40.0) 02/17/19 05:54 Hepatitis A IgM Ab Non-reactive (NonReactive) 02/15/19 13:16 Hep Bs Antigen Non-reactive (Negative) 02/15/19 13:16 Hep B Core IgM Ab Non-reactive (NonReactive) 02/15/19 13:16 Hepatitis C Antibody Non-reactive (NonReactive) 02/15/19 13:16 Active Medications - Current Medications Current Medications: Generic Name Dose Route Start Last Admin Trade Name Freq PRN Reason Stop Dose Admin Acetaminophen 650 mg 02/15/19 15:27 02/20/19 22:56 Tylenol PO 650 mg Q4H PRN Administration Pain MILD(1-3)/Fever >100.5/NEIL Albuterol 2.5 mg 02/15/19 15:27 Proventil IH Q4HRT PRN Shortness Of Breath Amlodipine Besylate 7.5 mg 02/16/19 10:00 02/27/19 09:57 Amlodipine PO 7.5 mg QDAY ISABELLA Administration Atorvastatin Calcium 20 mg 02/15/19 22:00 02/27/19 21:22 Lipitor PO 20 mg QHS ISABELLA Administration Epoetin Jeramy 10,000 unit 02/16/19 20:15 02/26/19 01:37 Procrit IV Not Given [facility] Gabapentin 100 mg 02/15/19 22:00 02/27/19 21:22 Gabapentin PO 100 mg Q8HR ISABELLA Administration Heparin Sodium (Porcine) 1,000 unit 02/16/19 11:00 Heparin 10,000 Units/10 Ml IV SISSY PRN hemodialysis Heparin Sodium (Porcine) 5,000 unit 02/16/19 11:00 Heparin IV SISSY PRN hemodialysis Heparin Sodium (Porcine) 5,000 unit 02/16/19 22:00 02/27/19 21:22 Heparin SUB-Q 5,000 unit Q12HR ISABELLA Administration Cefazolin Sodium 1 gm in 50 mls @ 100 mls/hr 02/18/19 18:00 02/27/19 17:09 Ancef/Ns 1 Gm/50 Ml IV 03/18/19 18:29 100 mls/hr QPM ISABELLA Administration Sodium Chloride 100 mls @ 999 mls/hr 02/23/19 13:38 Nacl 0.9% IV SISSY PRN Hypotension Ondansetron HCl 4 mg 02/15/19 15:27 Zofran IV Q8H PRN Nausea And Vomiting Oxycodone/Acetaminophen 1 tab 02/15/19 20:15 02/24/19 21:23 Percocet 5/325 PO 1 tab BID PRN Administration Pain, Moderate (4-6) Pantoprazole Sodium 40 mg 02/16/19 10:00 02/27/19 09:57 Protonix PO 40 mg DAILY ISABELLA Administration Polyethylene Glycol 17 gm 02/16/19 10:00 02/27/19 09:57 Miralax 3350 PO 17 gm QDAY ISABELLA Administration Sevelamer Carbonate 2,400 mg 02/16/19 07:30 02/27/19 17:08 Renvela PO 2,400 mg AC ISABELLA Administration Sodium Chloride 10 ml 02/15/19 22:00 02/27/19 21:26 Sodium Chloride Flush Syringe 10 Ml IV 10 ml BID ISABELLA Administration Sodium Chloride 10 ml 02/15/19 15:27 Sodium Chloride Flush Syringe 10 Ml IV PRN PRN LINE FLUSH Nutrition/Malnutrition Assess - Dietary Evaluation Nutrition/Malnutrition Findings: Nutrition Notes Start: 02/22/19 11:27 Freq: Status: Active Protocol: Document 02/22/19 11:27 LM (Rec: 02/22/19 11:29 LM [id number]) Nutrition Notes Need for Assessment generated from: LOS Initial or Follow up Brief Note Percent of energy/protein needs met: Screen for LOS. Pt in HD. 75- 100% intakes in chart. Reviewed previous chart from 01/2019. Pt with no wt lost and good intakes. Nutrition Intervention Revisit per MD consult or patient Sign Off request:
[2019-02-28 08:38] LABS: Calcium 9.2 mg/dL (8.4-10.2)
[2019-02-28 08:39] LABS: Basophils % (Auto) 0.6 % (0.0-1.8); Eosinophils # (Auto) 0.1 K/mm3 (0.0-0.4); Hematocrit 32.7 % (35.5-45.6); Hemoglobin 10.4 gm/dl (11.8-15.2); Lymphocytes % (Auto) 35.5 % (13.4-35.0); Mean Corpuscular HGB Conc 32 % (32-34); Mean Corpuscular Volume 81 fl (84-94); Monocytes # (Auto) 0.7 K/mm3 (0.0-0.8); Platelet Count 192 K/mm3 (140-440); Red Blood Count 4.03 M/mm3 (3.65-5.03); Red Cell Distribution Width 18.5 % (13.2-15.2)
[2019-02-28] MEDS: PANTOPRAZOLE 40 MG TAB PO SCH (10:35)
[2019-02-28] MEDS: SEVELAMER CARBONATE 800 MG TAB PO SCH ×3 (10:35→17:53)
[2019-02-28] MEDS: POLYETHYLENE GLYCOL 3350 17 GM POWDER PO SCH (10:35)
[2019-02-28] MEDS: amLODIPine 5 MG TAB PO SCH (10:35)
[2019-02-28] MEDS: HEPARIN 5,000 UNIT/1 ML VIAL SUB-Q SCH ×2 (10:36→21:57)
[2019-02-28] MEDS: GABAPENTIN 100 MG CAP PO SCH ×3 (13:28→21:57)
--- NOTE | 2019-02-28 15:59 | Progress Note ---
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 Blood cultures now negative and patient has new permacath. Continue antibiotics per infectious disease . Will need evaluation for subacute rehabilitation due to debilitation (2) ESRD (end stage renal disease) Current Visit: No Status: Chronic Plan to address problem: Hemodialysis on a Friday, and Friday schedule (3) Altered mental status Current Visit: No Status: Acute Plan to address problem: Toxic encephalopathy. Neurology input appreciated. Mental status has improved. (4) Anemia in CKD (chronic kidney disease) Current Visit: No Status: Acute Qualifiers: Chronic kidney disease stage: stage 5, not on chronic dialysis Qualified Code(s): N18.5 - Chronic kidney disease, stage 5; D63.1 - Anemia in chronic kidney disease Plan to address problem: Give erythropoietin on dialysis (5) Hyperkalemia Current Visit: No Status: Acute Plan to address problem: Potassium has improved. 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 Increase fluid removal on dialysis and follow-up sodium. Subjective Date of service: 02/28/19 Principal diagnosis: end-stage renal disease with MSSA bacteremia Interval history: Patient seen lying in bed. No new complaints. He is more awake today Objective - Exam Narrative Exam: Frail elderly -[place] male lying in bed in no acute distress HEENT: NCAT, pink oral mucous membrane Neck: Supple, no venous distention CVS: S1S2 RRR with no murmur, rub or gallop Chest: Clear to auscultation Abdomen: Protuberant, soft, nontender, no organomegaly, bowel sounds are present Extremities: Muscle wasting, No edema Genitourinary deferred Neuro: Drowsy, no focal deficits - Vital Signs Vital signs: Vital Signs - 12hr 02/28/19 02/28/19 02/28/19 07:33 10:00 13:12 Temperature 98.3 F 98.2 F Pulse Rate 85 86 Respiratory 18 19 Rate Blood Pressure 140/78 117/69 O2 Sat by Pulse 97 94 98 Oximetry - Lab 02/28/19 07:12 02/28/19 07:12 Most recent lab results Calcium 9.2 mg/dL (8.4-10.2) 02/28/19 07:12 Medications & Allergies - Medications Allergies/Adverse Reactions: Allergies No Known Allergies Allergy (Verified 08/27/18 16:19) Home Medications: Home Medications Medication Instructions Recorded Confirmed Last Taken Type Epoetin Jeramy 10,000 Unit [Procrit] 10,000 unit IV TUTHSA vial 12/19/18 02/16/19 Unknown Rx Gabapentin 100 mg PO Q8HR 30 Days #90 capsule 12/19/18 02/16/19 Unknown Rx Polyethylene Glycol 3350 [Miralax 17 gm PO QDAY 30 Days powd.pack 12/19/18 02/16/19 Unknown Rx 3350] Sevelamer Carbonate [Renvela] 2,400 mg PO AC 30 Days tablet 12/19/18 02/16/19 Unknown Rx amLODIPine 7.5 mg PO QDAY 30 Days #45 tablet 12/19/18 02/16/19 Unknown Rx oxyCODONE /ACETAMINOPHEN [Percocet 1 tab PO BID PRN #20 tablet 12/19/18 02/16/19 Unknown Rx 5/325 mg] AtorvaSTATin [Lipitor] 20 mg PO QHS 01/05/19 02/16/19 Unknown History Pantoprazole [Protonix TAB] 40 mg PO DAILY #30 tablet 01/08/19 02/16/19 Unknown Rx Active Medications: Generic Name Dose Route Start Last Admin Trade Name [place] PRN Reason Stop Dose Admin Acetaminophen 650 mg 02/15/19 15:27 02/20/19 22:56 Tylenol PO 650 mg Q4H PRN Administration Pain MILD(1-3)/Fever >100.5/NEIL Albuterol 2.5 mg 02/15/19 15:27 Proventil IH Q4HRT PRN Shortness Of Breath Amlodipine Besylate 7.5 mg 02/16/19 10:00 02/28/19 10:35 Amlodipine PO 7.5 mg QDAY ISABELLA Administration Atorvastatin Calcium 20 mg 02/15/19 22:00 02/27/19 21:22 Lipitor PO 20 mg QHS ISABELLA Administration Epoetin Jeramy 10,000 unit 02/16/19 20:15 02/26/19 01:37 Procrit IV Not Given TUTHSA ISABELLA Gabapentin 100 mg 02/15/19 22:00 02/28/19 13:28 Gabapentin PO 100 mg Q8HR ISABELLA Administration Heparin Sodium (Porcine) 1,000 unit 02/16/19 11:00 Heparin 10,000 Units/10 Ml IV SISSY PRN hemodialysis Heparin Sodium (Porcine) 5,000 unit 02/16/19 11:00 Heparin IV SISSY PRN hemodialysis Heparin Sodium (Porcine) 5,000 unit 02/16/19 22:00 02/28/19 10:36 Heparin SUB-Q 5,000 unit Q12HR ISABELLA Administration Cefazolin Sodium 1 gm in 50 mls @ 100 mls/hr 02/18/19 18:00 02/27/19 17:09 Ancef/Ns 1 Gm/50 Ml IV 03/18/19 18:29 100 mls/hr QPM ISABELLA Administration Sodium Chloride 100 mls @ 999 mls/hr 02/23/19 13:38 Nacl 0.9% IV SISSY PRN Hypotension Ondansetron HCl 4 mg 02/15/19 15:27 Zofran IV Q8H PRN Nausea And Vomiting Oxycodone/Acetaminophen 1 tab 02/15/19 20:15 02/24/19 21:23 Percocet 5/325 PO 1 tab BID PRN Administration Pain, Moderate (4-6) Pantoprazole Sodium 40 mg 02/16/19 10:00 02/28/19 10:35 Protonix PO 40 mg DAILY ISABELLA Administration Polyethylene Glycol 17 gm 02/16/19 10:00 02/28/19 10:35 Miralax 3350 PO 17 gm QDAY ISABELLA Administration Sevelamer Carbonate 2,400 mg 02/16/19 07:30 02/28/19 13:23 Renvela PO 2,400 mg AC ISABELLA Administration Sodium Chloride 10 ml 02/15/19 22:00 02/27/19 21:26 Sodium Chloride Flush Syringe 10 Ml IV 10 ml BID ISABELAL Administration Sodium Chloride 10 ml 02/15/19 15:27 Sodium Chloride Flush Syringe 10 Ml IV PRN PRN LINE FLUSH
[2019-02-28] MEDS: EPOETIN ALFA 10,000 UNIT/1 ML INJ IV SCH (20:38)
[2019-02-28] MEDS: ceFAZolin/NS 1 GM/50 ML 1 GM/50 ML BAG IV SCH (23:47)
[2019-03-01] MEDS: GABAPENTIN 100 MG CAP PO SCH ×3 (05:41→23:00)
--- NOTE | 2019-03-01 07:49 | Progress Note ---
Assessment and Plan Assessment and plan: Acute and chronic respiratory failure Continue supplemental oxygen, nebulizer therapy, pulse oximetry, Sepsis due to MSSA Dialysis catheter removed Cefazolin iv as per ID Permcath placement by vascular Surg 02/23/2019 Blood cultures now negative and patient has new permacath MSSA Bacteremia ID following and recommends Cefazolin iv till 03/18/19 Toxic metabolic encephalopathy. Improved. Neurology following Repeat CT negative Concern for multi-embolic multifocal strokes (from either ITE versus atrial fibrillation), versus PRES, versus multifactorial reasons for altered mental status MRI 11/2018 negative. Repeat MRI pending. History of Septic embolism ESRD (end stage renal disease) Nephrology following, dialysis as per renal team. monitor uop q shift, avoid nephrotoxic agents, DVT prophylaxis SCD to BLE whlile in bed, History Interval history: Patient less confused and is responding appropriately. Hospitalist Physical - Constitutional Vitals: Temp Pulse Resp BP Pulse Ox 98.0 F 86 20 130/71 85 03/01/19 07:26 03/01/19 07:26 03/01/19 07:26 03/01/19 07:26 03/01/19 07:26 General appearance: Present: no acute distress - EENT Eyes: Present: PERRL, EOM intact ENT: hearing intact, clear oral mucosa, dentition normal - Neck Neck: Present: supple, normal ROM - Respiratory Respiratory effort: normal Respiratory: bilateral: CTA - Cardiovascular Rhythm: regular Heart Sounds: Present: S1 & S2. Absent: gallop, rub - Extremities Extremities: no ischemia, No edema, Full ROM - Abdominal General gastrointestinal: soft, non-tender, non-distended, normal bowel sounds - Integumentary Integumentary: Present: clear, warm, dry - Neurologic Neurologic: CNII-XII intact, moves all extremities Results - Labs CBC & Chem 7: 02/28/19 07:12 02/28/19 07:12 Labs: Laboratory Last Values WBC 5.8 K/mm3 (4.5-11.0) 02/28/19 07:12 RBC 4.03 M/mm3 (3.65-5.03) 02/28/19 07:12 Hgb 10.4 gm/dl (11.8-15.2) L 02/28/19 07:12 Hct 32.7 % (35.5-45.6) L 02/28/19 07:12 MCV 81 fl (84-94) L 02/28/19 07:12 MCH 26 pg (28-32) L 02/28/19 07:12 MCHC 32 % (32-34) 02/28/19 07:12 RDW 18.5 % (13.2-15.2) H 02/28/19 07:12 Plt Count 192 K/mm3 (140-440) 02/28/19 07:12 Lymph % (Auto) 35.5 % (13.4-35.0) H 02/28/19 07:12 [place] % (Auto) 13.0 % (0.0-7.3) H 02/28/19 07:12 Eos % (Auto) 2.0 % (0.0-4.3) 02/28/19 07:12 Baso % (Auto) 0.6 % (0.0-1.8) 02/28/19 07:12 Lymph # 2.0 K/mm3 (1.2-5.4) 02/28/19 07:12 [place] # 0.7 K/mm3 (0.0-0.8) 02/28/19 07:12 Eos # 0.1 K/mm3 (0.0-0.4) 02/28/19 07:12 Baso # 0.0 K/mm3 (0.0-0.1) 02/28/19 07:12 Add Manual Diff Complete 02/18/19 22:29 Total Counted 100 02/18/19 22:29 Seg Neutrophils % 48.9 % (40.0-70.0) 02/28/19 07:12 Seg Neuts % (Manual) 70.0 % (40.0-70.0) 02/18/19 22:29 Band Neutrophils % 0 % 02/18/19 22:29 Lymphocytes % (Manual) 19.0 % (13.4-35.0) 02/18/19 22:29 Reactive Lymphs % (Man) 0 % 02/18/19 22:29 Monocytes % (Manual) 6.0 % (0.0-7.3) 02/18/19 22:29 Eosinophils % (Manual) 5.0 % (0.0-4.3) H 02/18/19 22:29 Basophils % (Manual) 0 % (0.0-1.8) 02/18/19 22:29 Metamyelocytes % 0 % 02/18/19 22: Myelocytes % 0 % 02/18/19 22: Promyelocytes % 0 % 02/18/19 22:29 Blast Cells % 0 % 02/18/19 22:29 Nucleated RBC % Not Reportable 02/18/19 22:29 Seg Neutrophils # 2.8 K/mm3 (1.8-7.7) 02/28/19 07:12 Seg Neutrophils # Man 4.9 K/mm3 (1.8-7.7) 02/18/19 22:29 Band Neutrophils # 0.0 K/mm3 02/18/19 22:29 Lymphocytes # (Manual) 1.3 K/mm3 (1.2-5.4) 02/18/19 22:29 Abs React Lymphs (Man) 0.0 K/mm3 02/18/19 22:29 Monocytes # (Manual) 0.4 K/mm3 (0.0-0.8) 02/18/19 22:29 Eosinophils # (Manual) 0.4 K/mm3 (0.0-0.4) 02/18/19 22:29 Basophils # (Manual) 0.0 K/mm3 (0.0-0.1) 02/18/19 22:29 Metamyelocytes # 0.0 K/mm3 02/18/19 22:29 Myelocytes # 0.0 K/mm3 02/18/19 22:29 Promyelocytes # 0.0 K/mm3 02/18/19 22:29 Blast Cells # 0.0 K/mm3 02/18/19 22:29 WBC Morphology Not Reportable 02/18/19 22:29 Hypersegmented Neuts Not Reportable 02/18/19 22:29 Hyposegmented Neuts Not Reportable 02/18/19 22:29 Hypogranular Neuts Not Reportable 02/18/19 22:29 Smudge Cells Not Reportable 02/18/19 22:29 Toxic Granulation Not Reportable 02/18/19 22:29 Toxic Vacuolation Not Reportable 02/18/19 22:29 Dohle Bodies Not Reportable 02/18/19 22:29 Pelger-Huet Anomaly Not Reportable 02/18/19 22:29 Fredi Rods Not Reportable 02/18/19 22:29 Platelet Estimate Consistent w auto 02/18/19 22:29 Clumped Platelets Not Reportable 02/18/19 22:29 Plt Clumps, EDTA Not Reportable 02/18/19 22:29 Large Platelets Not Reportable 02/18/19 22:29 Giant Platelets Not Reportable 02/18/19 22:29 Platelet Satelliting Not Reportable 02/18/19 22:29 Plt Morphology Comment Not Reportable 02/18/19 22:29 RBC Morphology Not Reportable 02/18/19 22:29 Dimorphic RBCs Not Reportable 02/18/19 22:29 Polychromasia Few 02/18/19 22:29 Hypochromasia Not Reportable 02/18/19 22:29 Poikilocytosis Not Reportable 02/18/19 22:29 Anisocytosis Not Reportable 02/18/19 22:29 Microcytosis Few 02/18/19 22:29 Macrocytosis Not Reportable 02/18/19 22:29 Spherocytes Not Reportable 02/18/19 22:29 Pappenheimer Bodies Not Reportable 02/18/19 22:29 Sickle Cells Not Reportable 02/18/19 22:29 Target Cells Few 02/18/19 22:29 Tear Drop Cells Rare 02/18/19 22:29 Ovalocytes Not Reportable 02/18/19 22:29 Helmet Cells Not Reportable 02/18/19 22:29 Monk-Mar-Mac Bodies Not Reportable 02/18/19 22:29 [place] Rings Not Reportable 02/18/19 22:29 Macy Cells Not Reportable 02/18/19 22:29 Bite Cells Not Reportable 02/18/19 22:29 Crenated Cell Not Reportable 02/18/19 22:29 Elliptocytes Not Reportable 02/18/19 22:29 Acanthocytes (Spur) Not Reportable 02/18/19 22:29 Rouleaux Not Reportable 02/18/19 22:29 Hemoglobin C Crystals Not Reportable 02/18/19 22:29 Schistocytes Not Reportable 02/18/19 22:29 Malaria parasites Not Reportable 02/18/19 22:29 Kolby Bodies Not Reportable 02/18/19 22:29 Hem Pathologist Commnt No 02/18/19 22:29 PT 17.6 Sec. (12.2-14.9) H 02/15/19 09:47 INR 1.42 (0.87-1.13) H 02/15/19 09:47 POC ABG pH 7.415 (7.35-7.45) 02/15/19 11:21 POC ABG pCO2 47.3 (35-45) H 02/15/19 11:21 POC ABG pO2 55 (80-105) L 02/15/19 11:21 POC ABG HCO3 30.3 (22-26 mml/L) 02/15/19 11:21 POC ABG Total CO2 32 (23-27mmol/L) 02/15/19 11:21 POC ABG O2 Sat 88 02/15/19 11:21 POC ABG Base Excess 6 ((-2) - (+3)mmol/L) 02/15/19 11:21 VBG pH 7.424 (7.320-7.420) H 02/15/19 09:47 FiO2 21 % 02/15/19 11:21 Sodium 135 mmol/L (137-145) L 02/28/19 07:12 Potassium 3.6 mmol/L (3.6-5.0) 02/28/19 07:12 Chloride 96.7 mmol/L (98-107) L 02/28/19 07:12 Carbon Dioxide 23 mmol/L (22-30) 02/28/19 07:12 Anion Gap 19 mmol/L 02/28/19 07:12 BUN 23 mg/dL (9-20) H 02/28/19 07:12 Creatinine 6.4 mg/dL (0.8-1.5) H 02/28/19 07:12 Estimated GFR 10 ml/min 02/28/19 07:12 BUN/Creatinine Ratio 4 % 02/28/19 07:12 Glucose 77 mg/dL (75-100) 02/28/19 07:12 Lactic Acid 1.00 mmol/L (0.7-2.0) 02/15/19 14:31 Calcium 9.2 mg/dL (8.4-10.2) 02/28/19 07:12 Total Bilirubin 0.50 mg/dL (0.1-1.2) 02/16/19 04:25 AST 29 units/L (5-40) 02/16/19 04:25 ALT 6 units/L (7-56) L 02/16/19 04:25 Alkaline Phosphatase 115 units/L (35-129) 02/16/19 04:25 Ammonia 41.0 umol/L (25-60) 02/15/19 14:31 Total Protein 8.2 g/dL (6.3-8.2) 02/16/19 04:25 Albumin 2.7 g/dL (3.9-5) L 02/16/19 04:25 Albumin/Globulin Ratio 0.5 % 02/16/19 04:25 Random Vancomycin 10.5 ug/mL (0-40.0) 02/17/19 05:54 Hepatitis A IgM Ab Non-reactive (NonReactive) 02/15/19 13:16 Hep Bs Antigen Non-reactive (Negative) 02/15/19 13:16 Hep B Core IgM Ab Non-reactive (NonReactive) 02/15/19 13:16 Hepatitis C Antibody Non-reactive (NonReactive) 02/15/19 13:16 Active Medications - Current Medications Current Medications: Generic Name Dose Route Start Last Admin Trade Name Freq PRN Reason Stop Dose Admin Acetaminophen 650 mg 02/15/19 15:27 02/20/19 22:56 Tylenol PO 650 mg Q4H PRN Administration Pain MILD(1-3)/Fever >100.5/NEIL Albuterol 2.5 mg 02/15/19 15:27 Proventil IH Q4HRT PRN Shortness Of Breath Amlodipine Besylate 7.5 mg 02/16/19 10:00 02/28/19 10:35 Amlodipine PO 7.5 mg QDAY ISABELLA Administration Atorvastatin Calcium 20 mg 02/15/19 22:00 02/28/19 21:57 Lipitor PO 20 mg QHS ISABELLA Administration Epoetin Jeramy 10,000 unit 02/16/19 20:15 02/28/19 20:38 Procrit IV Not Given [facility] Gabapentin 100 mg 02/15/19 22:00 03/01/19 05:41 Gabapentin PO 100 mg Q8HR ISABELLA Administration Heparin Sodium (Porcine) 1,000 unit 02/16/19 11:00 Heparin 10,000 Units/10 Ml IV SISSY PRN hemodialysis Heparin Sodium (Porcine) 5,000 unit 02/16/19 11:00 Heparin IV SISSY PRN hemodialysis Heparin Sodium (Porcine) 5,000 unit 02/16/19 22:00 02/28/19 21:57 Heparin SUB-Q 5,000 unit Q12HR ISABELLA Administration Cefazolin Sodium 1 gm in 50 mls @ 100 mls/hr 02/18/19 18:00 02/28/19 23:47 Ancef/Ns 1 Gm/50 Ml IV 03/18/19 18:29 Not Given QPM ISABELLA Sodium Chloride 100 mls @ 999 mls/hr 02/23/19 13:38 Nacl 0.9% IV SISSY PRN Hypotension Ondansetron HCl 4 mg 02/15/19 15:27 Zofran IV Q8H PRN Nausea And Vomiting Oxycodone/Acetaminophen 1 tab 02/15/19 20:15 02/24/19 21:23 Percocet 5/325 PO 1 tab BID PRN Administration Pain, Moderate (4-6) Pantoprazole Sodium 40 mg 02/16/19 10:00 02/28/19 10:35 Protonix PO 40 mg DAILY ISABELLA Administration Polyethylene Glycol 17 gm 02/16/19 10:00 02/28/19 10:35 Miralax 3350 PO 17 gm QDAY ISABELLA Administration Sevelamer Carbonate 2,400 mg 02/16/19 07:30 02/28/19 17:53 Renvela PO Not Given AC ISABELLA Sodium Chloride 10 ml 02/15/19 22:00 02/28/19 21:57 Sodium Chloride Flush Syringe 10 Ml IV 10 ml BID ISABELLA Administration Sodium Chloride 10 ml 02/15/19 15:27 Sodium Chloride Flush Syringe 10 Ml IV PRN PRN LINE FLUSH Nutrition/Malnutrition Assess - Dietary Evaluation Nutrition/Malnutrition Findings: Nutrition Notes Start: 02/22/19 11:27 Freq: Status: Active Protocol: Document 02/22/19 11:27 LM (Rec: 02/22/19 11:29 LM [id number]) Nutrition Notes Need for Assessment generated from: LOS Initial or Follow up Brief Note Percent of energy/protein needs met: Screen for LOS. Pt in HD. 75- 100% intakes in chart. Reviewed previous chart from 01/2019. Pt with no wt lost and good intakes. Nutrition Intervention Revisit per MD consult or patient Sign Off request:
[2019-03-01] MEDS: SEVELAMER CARBONATE 800 MG TAB PO SCH ×3 (07:59→17:49)
[2019-03-01] MEDS: HEPARIN 5,000 UNIT/1 ML VIAL SUB-Q SCH ×3 (09:33→23:00)
[2019-03-01] MEDS: POLYETHYLENE GLYCOL 3350 17 GM POWDER PO SCH ×2 (09:33→13:17)
[2019-03-01] MEDS: amLODIPine 5 MG TAB PO SCH (09:33)
[2019-03-01] MEDS: PANTOPRAZOLE 40 MG TAB PO SCH ×2 (09:33→13:17)
--- NOTE | 2019-03-01 10:05 | Progress Note ---
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 Blood cultures now negative and patient has new permacath. Continue antibiotics per infectious disease . Will need evaluation for subacute rehabilitation due to debilitation vs home with home health for PT physical therapy (2) ESRD (end stage renal disease) Current Visit: No Status: Chronic Plan to address problem: Hemodialysis on a Friday, and Friday schedule (3) Altered mental status Current Visit: No Status: Acute Plan to address problem: Toxic encephalopathy. Neurology input appreciated. Mental status has improved. (4) Anemia in CKD (chronic kidney disease) Current Visit: No Status: Acute Qualifiers: Chronic kidney disease stage: stage 5, not on chronic dialysis Qualified Code(s): N18.5 - Chronic kidney disease, stage 5; D63.1 - Anemia in chronic kidney disease Plan to address problem: Give erythropoietin on dialysis (5) Hyperkalemia Current Visit: No Status: Acute Plan to address problem: Potassium has improved. 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 Increase fluid removal on dialysis and follow-up sodium. Subjective Date of service: 03/01/19 Principal diagnosis: end-stage renal disease with MSSA bacteremia Interval history: Patient seen lying in bed in the dialysis unit. No new complaints. He is awake today Objective - Exam Narrative Exam: Frail elderly -[place] male lying in bed in no acute distress HEENT: NCAT, pink oral mucous membrane Neck: Supple, no venous distention CVS: S1S2 RRR with no murmur, rub or gallop Chest: Clear to auscultation Abdomen: Protuberant, soft, nontender, no organomegaly, bowel sounds are present Extremities: Muscle wasting, No edema Genitourinary deferred Neuro: Drowsy, no focal deficits - Vital Signs Vital signs: Vital Signs - 12hr 03/01/19 03/01/19 03/01/19 00:22 02:06 07:26 Temperature 98.7 F 98.0 F Pulse Rate 92 H 87 86 Respiratory 18 20 Rate Blood Pressure 128/69 130/71 O2 Sat by Pulse 98 85 Oximetry 03/01/19 03/01/19 03/01/19 08:20 08:22 08:30 Temperature 98.0 F Pulse Rate 94 H 91 H 92 H Respiratory 20 Rate Blood Pressure 137/74 133/78 152/82 O2 Sat by Pulse Oximetry 03/01/19 03/01/19 08:45 09:00 Temperature Pulse Rate 94 H 97 H Respiratory Rate Blood Pressure 135/73 110/68 O2 Sat by Pulse Oximetry - Lab 02/28/19 07:12 02/28/19 07:12 Most recent lab results Calcium 9.2 mg/dL (8.4-10.2) 02/28/19 07:12 Medications & Allergies - Medications Allergies/Adverse Reactions: Allergies No Known Allergies Allergy (Verified 08/27/18 16:19) Home Medications: Home Medications Medication Instructions Recorded Confirmed Last Taken Type Epoetin Jeramy 10,000 Unit [Procrit] 10,000 unit IV TUTHSA vial 12/19/18 02/16/19 Unknown Rx Gabapentin 100 mg PO Q8HR 30 Days #90 capsule 12/19/18 02/16/19 Unknown Rx Polyethylene Glycol 3350 [Miralax 17 gm PO QDAY 30 Days powd.pack 12/19/18 02/16/19 Unknown Rx 3350] Sevelamer Carbonate [Renvela] 2,400 mg PO AC 30 Days tablet 12/19/18 02/16/19 Unknown Rx amLODIPine 7.5 mg PO QDAY 30 Days #45 tablet 12/19/18 02/16/19 Unknown Rx oxyCODONE /ACETAMINOPHEN [Percocet 1 tab PO BID PRN #20 tablet 12/19/18 02/16/19 Unknown Rx 5/325 mg] AtorvaSTATin [Lipitor] 20 mg PO QHS 01/05/19 02/16/19 Unknown History Pantoprazole [Protonix TAB] 40 mg PO DAILY #30 tablet 01/08/19 02/16/19 Unknown Rx Active Medications: Generic Name Dose Route Start Last Admin Trade Name Freq PRN Reason Stop Dose Admin Acetaminophen 650 mg 02/15/19 15:27 02/20/19 22:56 Tylenol PO 650 mg Q4H PRN Administration Pain MILD(1-3)/Fever >100.5/NEIL Albuterol 2.5 mg 02/15/19 15:27 Proventil IH Q4HRT PRN Shortness Of Breath Amlodipine Besylate 7.5 mg 02/16/19 10:00 03/01/19 09:33 Amlodipine PO Not Given QDAY ISABELLA Atorvastatin Calcium 20 mg 02/15/19 22:00 02/28/19 21:57 Lipitor PO 20 mg QHS ISABELLA Administration Epoetin Jeramy 10,000 unit 02/16/19 20:15 02/28/19 20:38 Procrit IV Not Given TUTHSA [facility] Gabapentin 100 mg 02/15/19 22:00 03/01/19 05:41 Gabapentin PO 100 mg Q8HR ISABELLA Administration Heparin Sodium (Porcine) 1,000 unit 02/16/19 11:00 Heparin 10,000 Units/10 Ml IV SISSY PRN hemodialysis Heparin Sodium (Porcine) 5,000 unit 02/16/19 11:00 Heparin IV SISSY PRN hemodialysis Heparin Sodium (Porcine) 5,000 unit 02/16/19 22:00 03/01/19 09:33 Heparin SUB-Q Not Given Q12HR [facility] Cefazolin Sodium 1 gm in 50 mls @ 100 mls/hr 02/18/19 18:00 02/28/19 23:47 Ancef/Ns 1 Gm/50 Ml IV 03/18/19 18:29 Not Given QPM [facility] Sodium Chloride 100 mls @ 999 mls/hr 02/23/19 13:38 Nacl 0.9% IV SISSY PRN Hypotension Ondansetron HCl 4 mg 02/15/19 15:27 Zofran IV Q8H PRN Nausea And Vomiting Oxycodone/Acetaminophen 1 tab 02/15/19 20:15 02/24/19 21:23 Percocet 5/325 PO 1 tab BID PRN Administration Pain, Moderate (4-6) Pantoprazole Sodium 40 mg 02/16/19 10:00 03/01/19 09:33 Protonix PO Not Given DAILY [facility] Polyethylene Glycol 17 gm 02/16/19 10:00 03/01/19 09:33 Miralax 3350 PO Not Given QDAY [facility] Sevelamer Carbonate 2,400 mg 02/16/19 07:30 03/01/19 07:59 Renvela PO 2,400 mg AC [facility] Administration Sodium Chloride 10 ml 02/15/19 22:00 03/01/19 09:33 Sodium Chloride Flush Syringe 10 Ml IV Not Given BID ISABELLA Sodium Chloride 10 ml 02/15/19 15:27 Sodium Chloride Flush Syringe 10 Ml IV PRN PRN LINE FLUSH
[2019-03-01] MEDS: ceFAZolin/NS 1 GM/50 ML 1 GM/50 ML BAG IV SCH (17:50)
[2019-03-01] MEDS ORDERED: SODIUM CHLORIDE*PRIMING MACHINE ONLY FOR DIALYSIS MC ONE (18:18)
[2019-03-02] MEDS: SEVELAMER CARBONATE 800 MG TAB PO SCH ×3 (08:17→15:30)
--- NOTE | 2019-03-02 08:50 | Progress Note ---
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 Blood cultures now negative and patient has new permacath. Continue antibiotics per infectious disease . Will need evaluation for subacute rehabilitation due to debilitation vs home with home health for PT physical therapy (2) ESRD (end stage renal disease) Current Visit: No Status: Chronic Plan to address problem: Hemodialysis on a Friday, and Friday schedule (3) Altered mental status Current Visit: No Status: Acute Plan to address problem: Toxic encephalopathy. Neurology input appreciated. Mental status has improved. (4) Anemia in CKD (chronic kidney disease) Current Visit: No Status: Acute Qualifiers: Chronic kidney disease stage: stage 5, not on chronic dialysis Qualified Code(s): N18.5 - Chronic kidney disease, stage 5; D63.1 - Anemia in chronic kidney disease Plan to address problem: Give erythropoietin on dialysis (5) Hyperkalemia Current Visit: No Status: Acute Plan to address problem: Potassium has improved. 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 Increase fluid removal on dialysis and follow-up sodium. Subjective Date of service: 03/02/19 Principal diagnosis: end-stage renal disease with MSSA bacteremia Interval history: Patient seen lying in bed. No new complaints. He is awake and alert. States he did not refuse MRI of the brain Objective - Exam Narrative Exam: Frail elderly -Togolese male lying in bed in no acute distress HEENT: NCAT, pink oral mucous membrane Neck: Supple, no venous distention CVS: S1S2 RRR with no murmur, rub or gallop Chest: Clear to auscultation Abdomen: Protuberant, soft, nontender, no organomegaly, bowel sounds are present Extremities: Muscle wasting, No edema Genitourinary deferred Neuro: Drowsy, no focal deficits - Vital Signs Vital signs: Vital Signs - 12hr 03/01/19 03/02/19 03/02/19 23:34 01:47 01:48 Temperature Pulse Rate 127 H 126 H Respiratory Rate Blood Pressure 134/83 O2 Sat by Pulse 96 81 L 91 Oximetry 03/02/19 03/02/19 01:49 08:00 Temperature 99.3 F 100.3 F H Pulse Rate 126 H 96 H Respiratory 22 20 Rate Blood Pressure 128/81 O2 Sat by Pulse 93 93 Oximetry - Lab 03/02/19 13:11 03/02/19 13:11 Most recent lab results Calcium 9.2 mg/dL (8.4-10.2) 02/28/19 07:12 Medications & Allergies - Medications Allergies/Adverse Reactions: Allergies No Known Allergies Allergy (Verified 08/27/18 16:19) Home Medications: Home Medications Medication Instructions Recorded Confirmed Last Taken Type Epoetin Jeramy 10,000 Unit [Procrit] 10,000 unit IV TUTHSA vial 12/19/18 02/16/19 Unknown Rx Gabapentin 100 mg PO Q8HR 30 Days #90 capsule 12/19/18 02/16/19 Unknown Rx Polyethylene Glycol 3350 [Miralax 17 gm PO QDAY 30 Days powd.pack 12/19/18 02/16/19 Unknown Rx 3350] Sevelamer Carbonate [Renvela] 2,400 mg PO AC 30 Days tablet 12/19/18 02/16/19 Unknown Rx amLODIPine 7.5 mg PO QDAY 30 Days #45 tablet 12/19/18 02/16/19 Unknown Rx oxyCODONE /ACETAMINOPHEN [Percocet 1 tab PO BID PRN #20 tablet 12/19/18 02/16/19 Unknown Rx 5/325 mg] AtorvaSTATin [Lipitor] 20 mg PO QHS 01/05/19 02/16/19 Unknown History Pantoprazole [Protonix TAB] 40 mg PO DAILY #30 tablet 01/08/19 02/16/19 Unknown Rx Active Medications: Generic Name Dose Route Start Last Admin Trade Name Freq PRN Reason Stop Dose Admin Acetaminophen 650 mg 02/15/19 15:27 02/20/19 22:56 Tylenol PO 650 mg Q4H PRN Administration Pain MILD(1-3)/Fever >100.5/NEIL Albuterol 2.5 mg 02/15/19 15:27 Proventil IH Q4HRT PRN Shortness Of Breath Amlodipine Besylate 7.5 mg 02/16/19 10:00 03/01/19 09:33 Amlodipine PO Not Given QDAY ISABELLA Atorvastatin Calcium 20 mg 02/15/19 22:00 03/01/19 23:00 Lipitor PO 20 mg QHS ISABELLA Administration Epoetin Jeramy 10,000 unit 02/16/19 20:15 02/28/19 20:38 Procrit IV Not Given TUTHSA ISABELLA Gabapentin 100 mg 02/15/19 22:00 03/01/19 23:00 Gabapentin PO 100 mg Q8HR ISABELLA Administration Heparin Sodium (Porcine) 1,000 unit 02/16/19 11:00 Heparin 10,000 Units/10 Ml IV SISSY PRN hemodialysis Heparin Sodium (Porcine) 5,000 unit 02/16/19 11:00 Heparin IV SISSY PRN hemodialysis Heparin Sodium (Porcine) 5,000 unit 02/16/19 22:00 03/01/19 23:00 Heparin SUB-Q 5,000 unit Q12HR ISABELLA Administration Cefazolin Sodium 1 gm in 50 mls @ 100 mls/hr 02/18/19 18:00 03/01/19 17:50 Ancef/Ns 1 Gm/50 Ml IV 03/18/19 18:29 100 mls/hr QPM ISABELLA Administration Sodium Chloride 100 mls @ 999 mls/hr 02/23/19 13:38 Nacl 0.9% IV SISSY PRN Hypotension Ondansetron HCl 4 mg 02/15/19 15:27 Zofran IV Q8H PRN Nausea And Vomiting Oxycodone/Acetaminophen 1 tab 02/15/19 20:15 02/24/19 21:23 Percocet 5/325 PO 1 tab BID PRN Administration Pain, Moderate (4-6) Pantoprazole Sodium 40 mg 02/16/19 10:00 03/01/19 13:17 Protonix PO 40 mg DAILY ISABELLA Administration Polyethylene Glycol 17 gm 02/16/19 10:00 03/01/19 13:17 Miralax 3350 PO 17 gm QDAY ISABELLA Administration Sevelamer Carbonate 2,400 mg 02/16/19 07:30 03/02/19 08:17 Renvela PO 2,400 mg AC ISABELLA Administration Sodium Chloride 10 ml 02/15/19 22:00 03/01/19 23:04 Sodium Chloride Flush Syringe 10 Ml IV 10 ml BID ISABELLA Administration Sodium Chloride 10 ml 02/15/19 15:27 Sodium Chloride Flush Syringe 10 Ml IV PRN PRN LINE FLUSH
[2019-03-02] MEDS: amLODIPine 5 MG TAB PO SCH (10:00)
--- NOTE | 2019-03-02 11:04 | Magnetic Resonance Report ---
MRI BRAIN WITHOUT CONTRAST, MRA HEAD WITHOUT CONTRAST, MRA NECK WITHOUT CONTRAST INDICATION / CLINICAL INFORMATION: Left arm weakness, slurred speech, known atrial fibrillation.. TECHNIQUE: Multiplanar, multi sequential MRI images of the brain. Routine MRA of the head and routine MRA of th e neck are performed. 3-D/MIP reformats postprocessed. Percentage stenosis is determined by direct qu antitative measurements of distal internal carotid artery diameter compared with normal reference seg ments or by criteria similar to NASCET where applicable. COMPARISON: Multiple previous head CTs, most recently on 02/25/2019 and 02/15/2019. Brain MRI on 11/20/2018. FINDINGS: MR BRAIN: BRAIN / INTRACRANIAL CONTENTS: No acute ischemia, acute hemorrhage, mass effect, midline shift, or hy drocephalus. Stable moderate small vessel ischemic change in the cerebral white matter without adver se change from the prior exam. Stable age commensurate ventricular and cisternal size. CRANIOCERVICAL JUNCTION: No significant abnormality. ORBITS: No significant abnormality of visualized orbits. SINUSES / MASTOIDS: Stable fluid partially opacifying the bilateral mastoid air cells. Paranasal sinu ses are clear. ADDITIONAL FINDINGS: None. MRA HEAD: Intracranial vertebral arteries: No significant abnormality. Basilar artery: No significant abnormality. Posterior cerebral arteries: There is developmental origin the bilateral posterior cerebral art eries. There is no additional significant abnormality. Intracranial internal carotid arteries: No significant abnormality. Anterior cerebral arteries: No significant abnormality. Middle cerebral arteries: No significant abnormality. Additional findings: None. MRA NECK: Aortic arch: No significant abnormality. Cervical vertebral arteries: No significant abnormality. Common carotid arteries: No significant abnormality. Cervical internal carotid arteries: There is a questionable mild to moderate stenosis of the proximal right cervical internal carotid artery of approximately 40-50% but this may be artifactual due to mo tion artifact. Left cervical internal carotid artery demonstrates no significant stenosis. Additional findings: None. IMPRESSION: 1. No acute infarct or other acute intracranial abnormality. 2. No significant stenosis or large vessel occlusion in the intracranial arteries. 3. Questionable potentially flow-limiting stenosis of the proximal right cervical internal carotid ar brodie but this may be artifactual due to motion artifact. This could be confirmed with carotid duplex ultrasound. Signer Name: Pierre Estrada MD Signed: 03/02/2019 11:00 AM Workstation Name: [employer]
[2019-03-02] MEDS: PANTOPRAZOLE 40 MG TAB PO SCH (13:25)
[2019-03-02] MEDS: GABAPENTIN 100 MG CAP PO SCH ×2 (13:25→21:20)
[2019-03-02] MEDS: POLYETHYLENE GLYCOL 3350 17 GM POWDER PO SCH (13:25)
[2019-03-02] MEDS: HEPARIN 5,000 UNIT/1 ML VIAL SUB-Q SCH ×2 (13:26→21:21)
[2019-03-02 14:04] LABS: Basophils # (Auto) 0.1 K/mm3 (0.0-0.1); Basophils % (Auto) 0.7 % (0.0-1.8); Eosinophils % (Auto) 0.5 % (0.0-4.3); Hematocrit 32.5 % (35.5-45.6); Hemoglobin 10.4 gm/dl (11.8-15.2); Lymphocytes # (Auto) 2.1 K/mm3 (1.2-5.4); Lymphocytes % (Auto) 25.9 % (13.4-35.0); Mean Corpuscular HGB Conc 32 % (32-34); Mean Corpuscular Volume 80 fl (84-94); Monocytes # (Auto) 0.8 K/mm3 (0.0-0.8); Monocytes % (Auto) 9.7 % (0.0-7.3); Platelet Count 195 K/mm3 (140-440); Red Blood Count 4.04 M/mm3 (3.65-5.03); Red Cell Distribution Width 18.8 % (13.2-15.2)
[2019-03-02 14:23] LABS: Calcium 9.1 mg/dL (8.4-10.2)
--- NOTE | 2019-03-02 16:08 | Vascular Lab Report ---
"DUPLEX DOPPLER ULTRASOUND CAROTID, BILATERAL INDICATION: abnormal carotid on MRI. COMPARISON: None available. FINDINGS: RIGHT CAROTID: No significant atherosclerotic plaque. CCA velocity: 90 cm/sec. ICA peak systolic velocity: 109 cm/sec. ICA/CCA PSV Ratio: 1.2. Right Vertebral Artery: Antegrade flow. LEFT CAROTID: No significant atherosclerotic plaque. CCA velocity: 90 cm/sec. ICA peak systolic velocity: 77 cm/sec. ICA/CCA PSV Ratio: Less than 1.. Left Vertebral Artery: Antegrade flow. IMPRESSION: 1. Right Internal Carotid Artery: Less than 50% diameter stenosis. 2. Left Internal Carotid Artery: Less than 50% diameter stenosis. Velocity criteria are extrapolated from diameter data as defined by the Society of Radiologists in Ul trasound Consensus Conference, Radiology 2003; 229;340-346. Degree of || ICA PSV || Plaque || ICA/CCA Stenosis (%) || (cm/sec) || estimate (%) || PSV Ratio - Normal...............<125..............None.................<2.0 - <50....................<125..............<50....................<2.0 - 50-69................125-230.........>50....................2.0-4.0 - >70 but <100....>230..............>50....................>4.0 - Near...................High, low, .....visible................variable occlusion or none - Total...................None.............visible;................N/A occlusion no lumen Signer Name: Sanjay Woodall MD Signed: 03/02/2019 4:04 PM Workstation Name: [id number]"
--- NOTE | 2019-03-02 16:13 | Progress Note ---
Assessment and Plan Assessment and plan: Acute and chronic respiratory failure Continue supplemental oxygen, nebulizer therapy, pulse oximetry, Sepsis due to MSSA Dialysis catheter removed Cefazolin iv as per ID Permcath placement by vascular Surg 02/23/2019 Blood cultures now negative and patient has new permacath MSSA Bacteremia ID following and recommends Cefazolin iv till 03/18/19 Toxic metabolic encephalopathy. Improved. Neurology following Repeat CT negative Concern for multi-embolic multifocal strokes (from either ITE versus atrial fibrillation), versus PRES, versus multifactorial reasons for altered mental status MRI 11/2018 negative. MRI Brain done today no acute ischemia but poss carotid disease Fever Repeat blood cultures History of Septic embolism ESRD (end stage renal disease) Nephrology following, dialysis as per renal team. monitor uop q shift, avoid nephrotoxic agents, DVT prophylaxis SCD to BLE whlile in bed, Pt not discharged because of fever. History Interval history: Less shortness of breath Less Fatigue Less confusion says he has been confused since last admission last month Hospitalist Physical - Physical exam Narrative exam: Gen: Not in acute distress, lying in bed, HEENT: Normocephalic, atraumatic Neck: supple, no JVD Heart: S1 and S2 reg, no murmurs, rubs or gallop Lungs: clear to auscultation bilaterally, no crackles Abd: soft, NT, non distended, normal BS Ext: No edema, no clubbing, no cyanosis Neuro:Awake,alert, Oriented in person, place , moves all ext - Constitutional Vitals: Temp Pulse Resp BP Pulse Ox 100.3 F H 96 H 20 128/81 100 03/02/19 08:00 03/02/19 08:00 03/02/19 08:00 03/02/19 08:00 03/02/19 14:58 General appearance: Present: no acute distress Results - Labs CBC & Chem 7: 03/02/19 13:11 03/02/19 13:11 Labs: Laboratory Last Values WBC 8.1 K/mm3 (4.5-11.0) 03/02/19 13:11 RBC 4.04 M/mm3 (3.65-5.03) 03/02/19 13:11 Hgb 10.4 gm/dl (11.8-15.2) L 03/02/19 13:11 Hct 32.5 % (35.5-45.6) L 03/02/19 13:11 MCV 80 fl (84-94) L 03/02/19 13:11 MCH 26 pg (28-32) L 03/02/19 13:11 MCHC 32 % (32-34) 03/02/19 13:11 RDW 18.8 % (13.2-15.2) H 03/02/19 13:11 Plt Count 195 K/mm3 (140-440) 03/02/19 13:11 Lymph % (Auto) 25.9 % (13.4-35.0) 03/02/19 13:11 Keith % (Auto) 9.7 % (0.0-7.3) H 03/02/19 13:11 Eos % (Auto) 0.5 % (0.0-4.3) 03/02/19 13:11 Baso % (Auto) 0.7 % (0.0-1.8) 03/02/19 13:11 Lymph # 2.1 K/mm3 (1.2-5.4) 03/02/19 13:11 Keith # 0.8 K/mm3 (0.0-0.8) 03/02/19 13:11 Eos # 0.0 K/mm3 (0.0-0.4) 03/02/19 13:11 Baso # 0.1 K/mm3 (0.0-0.1) 03/02/19 13:11 Add Manual Diff Complete 02/18/19 22:29 Total Counted 100 02/18/19 22:29 Seg Neutrophils % 63.2 % (40.0-70.0) 03/02/19 13:11 Seg Neuts % (Manual) 70.0 % (40.0-70.0) 02/18/19 22:29 Band Neutrophils % 0 % 02/18/19 22:29 Lymphocytes % (Manual) 19.0 % (13.4-35.0) 02/18/19 22:29 Reactive Lymphs % (Man) 0 % 02/18/19 22:29 Monocytes % (Manual) 6.0 % (0.0-7.3) 02/18/19 22:29 Eosinophils % (Manual) 5.0 % (0.0-4.3) H 02/18/19 22:29 Basophils % (Manual) 0 % (0.0-1.8) 02/18/19 22:29 Metamyelocytes % 0 % 02/18/19 22:29 Myelocytes % 0 % 02/18/19 22: Promyelocytes % 0 % 02/18/19 22:29 Blast Cells % 0 % 02/18/19 22:29 Nucleated RBC % Not Reportable 02/18/19 22:29 Seg Neutrophils # 5.1 K/mm3 (1.8-7.7) 03/02/19 13:11 Seg Neutrophils # Man 4.9 K/mm3 (1.8-7.7) 02/18/19 22:29 Band Neutrophils # 0.0 K/mm3 02/18/19 22:29 Lymphocytes # (Manual) 1.3 K/mm3 (1.2-5.4) 02/18/19 22:29 Abs React Lymphs (Man) 0.0 K/mm3 02/18/19 22:29 Monocytes # (Manual) 0.4 K/mm3 (0.0-0.8) 02/18/19 22:29 Eosinophils # (Manual) 0.4 K/mm3 (0.0-0.4) 02/18/19 22:29 Basophils # (Manual) 0.0 K/mm3 (0.0-0.1) 02/18/19 22:29 Metamyelocytes # 0.0 K/mm3 02/18/19 22:29 Myelocytes # 0.0 K/mm3 02/18/19 22:29 Promyelocytes # 0.0 K/mm3 02/18/19 22:29 Blast Cells # 0.0 K/mm3 02/18/19 22:29 WBC Morphology Not Reportable 02/18/19 22:29 Hypersegmented Neuts Not Reportable 02/18/19 22:29 Hyposegmented Neuts Not Reportable 02/18/19 22:29 Hypogranular Neuts Not Reportable 02/18/19 22:29 Smudge Cells Not Reportable 02/18/19 22:29 Toxic Granulation Not Reportable 02/18/19 22:29 Toxic Vacuolation Not Reportable 02/18/19 22:29 Dohle Bodies Not Reportable 02/18/19 22:29 Pelger-Huet Anomaly Not Reportable 02/18/19 22:29 Fredi Rods Not Reportable 02/18/19 22:29 Platelet Estimate Consistent w auto 02/18/19 22:29 Clumped Platelets Not Reportable 02/18/19 22:29 Plt Clumps, EDTA Not Reportable 02/18/19 22:29 Large Platelets Not Reportable 02/18/19 22:29 Giant Platelets Not Reportable 02/18/19 22:29 Platelet Satelliting Not Reportable 02/18/19 22:29 Plt Morphology Comment Not Reportable 02/18/19 22:29 RBC Morphology Not Reportable 02/18/19 22:29 Dimorphic RBCs Not Reportable 02/18/19 22:29 Polychromasia Few 02/18/19 22:29 Hypochromasia Not Reportable 02/18/19 22:29 Poikilocytosis Not Reportable 02/18/19 22:29 Anisocytosis Not Reportable 02/18/19 22:29 Microcytosis Few 02/18/19 22:29 Macrocytosis Not Reportable 02/18/19 22:29 Spherocytes Not Reportable 02/18/19 22:29 Pappenheimer Bodies Not Reportable 02/18/19 22:29 Sickle Cells Not Reportable 02/18/19 22:29 Target Cells Few 02/18/19 22:29 Tear Drop Cells Rare 02/18/19 22:29 Ovalocytes Not Reportable 02/18/19 22:29 Helmet Cells Not Reportable 02/18/19 22:29 [place] Bodies Not Reportable 02/18/19 22:29 Lee Rings Not Reportable 02/18/19 22:29 Macy Cells Not Reportable 02/18/19 22:29 Bite Cells Not Reportable 02/18/19 22:29 Crenated Cell Not Reportable 02/18/19 22:29 Elliptocytes Not Reportable 02/18/19 22:29 Acanthocytes (Spur) Not Reportable 02/18/19 22:29 Rouleaux Not Reportable 02/18/19 22:29 Hemoglobin C Crystals Not Reportable 02/18/19 22:29 Schistocytes Not Reportable 02/18/19 22:29 Malaria parasites Not Reportable 02/18/19 22:29 [place]by Bodies Not Reportable 02/18/19 22:29 Hem Pathologist Commnt No 02/18/19 22:29 PT 17.6 Sec. (12.2-14.9) H 02/15/19 09:47 INR 1.42 (0.87-1.13) H 02/15/19 09:47 POC ABG pH 7.415 (7.35-7.45) 02/15/19 11:21 POC ABG pCO2 47.3 (35-45) H 02/15/19 11:21 POC ABG pO2 55 (80-105) L 02/15/19 11:21 POC ABG HCO3 30.3 (22-26 mml/L) 02/15/19 11:21 POC ABG Total CO2 32 (23-27mmol/L) 02/15/19 11:21 POC ABG O2 Sat 88 02/15/19 11:21 POC ABG Base Excess 6 ((-2) - (+3)mmol/L) 02/15/19 11:21 VBG pH 7.424 (7.320-7.420) H 02/15/19 09:47 FiO2 21 % 02/15/19 11:21 Sodium 132 mmol/L (137-145) L 03/02/19 13:11 Potassium 4.1 mmol/L (3.6-5.0) 03/02/19 13:11 Chloride 94.2 mmol/L (98-107) L 03/02/19 13:11 Carbon Dioxide 25 mmol/L (22-30) 03/02/19 13:11 Anion Gap 17 mmol/L 03/02/19 13:11 BUN 26 mg/dL (9-20) H 03/02/19 13:11 Creatinine 6.4 mg/dL (0.8-1.5) H 03/02/19 13:11 Estimated GFR 10 ml/min 03/02/19 13:11 BUN/Creatinine Ratio 4 % 03/02/19 13:11 Glucose 120 mg/dL (75-100) H 03/02/19 13:11 Lactic Acid 1.00 mmol/L (0.7-2.0) 02/15/19 14:31 Calcium 9.1 mg/dL (8.4-10.2) 03/02/19 13:11 Total Bilirubin 0.50 mg/dL (0.1-1.2) 02/16/19 04:25 AST 29 units/L (5-40) 02/16/19 04:25 ALT 6 units/L (7-56) L 02/16/19 04:25 Alkaline Phosphatase 115 units/L (35-129) 02/16/19 04:25 Ammonia 41.0 umol/L (25-60) 02/15/19 14:31 Total Protein 8.2 g/dL (6.3-8.2) 02/16/19 04:25 Albumin 2.7 g/dL (3.9-5) L 02/16/19 04:25 Albumin/Globulin Ratio 0.5 % 02/16/19 04:25 Random Vancomycin 10.5 ug/mL (0-40.0) 02/17/19 05:54 Hepatitis A IgM Ab Non-reactive (NonReactive) 02/15/19 13:16 Hep Bs Antigen Non-reactive (Negative) 02/15/19 13:16 Hep B Core IgM Ab Non-reactive (NonReactive) 02/15/19 13:16 Hepatitis C Antibody Non-reactive (NonReactive) 02/15/19 13:16 Active Medications - Current Medications Current Medications: Generic Name Dose Route Start Last Admin Trade Name Freq PRN Reason Stop Dose Admin Acetaminophen 650 mg 02/15/19 15:27 02/20/19 22:56 Tylenol PO 650 mg Q4H PRN Administration Pain MILD(1-3)/Fever >100.5/NEIL Albuterol 2.5 mg 02/15/19 15:27 Proventil IH Q4HRT PRN Shortness Of Breath Amlodipine Besylate 7.5 mg 02/16/19 10:00 03/02/19 10:00 Amlodipine PO Not Given QDAY ISABELLA Atorvastatin Calcium 20 mg 02/15/19 22:00 03/01/19 23:00 Lipitor PO 20 mg QHS ISABELLA Administration Epoetin Jeramy 10,000 unit 02/16/19 20:15 02/28/19 20:38 Procrit IV Not Given TUTHSA ISABELLA Gabapentin 100 mg 02/15/19 22:00 03/02/19 13:25 Gabapentin PO 100 mg Q8HR ISABELLA Administration Heparin Sodium (Porcine) 1,000 unit 02/16/19 11:00 Heparin 10,000 Units/10 Ml IV SISSY PRN hemodialysis Heparin Sodium (Porcine) 5,000 unit 02/16/19 11:00 Heparin IV SISSY PRN hemodialysis Heparin Sodium (Porcine) 5,000 unit 02/16/19 22:00 03/02/19 13:26 Heparin SUB-Q 5,000 unit Q12HR ISABELLA Administration Cefazolin Sodium 1 gm in 50 mls @ 100 mls/hr 02/18/19 18:00 03/01/19 17:50 Ancef/Ns 1 Gm/50 Ml IV 03/18/19 18:29 100 mls/hr QPM ISABELLA Administration Sodium Chloride 100 mls @ 999 mls/hr 02/23/19 13:38 Nacl 0.9% IV SISSY PRN Hypotension Ondansetron HCl 4 mg 02/15/19 15:27 Zofran IV Q8H PRN Nausea And Vomiting Oxycodone/Acetaminophen 1 tab 02/15/19 20:15 02/24/19 21:23 Percocet 5/325 PO 1 tab BID PRN Administration Pain, Moderate (4-6) Pantoprazole Sodium 40 mg 02/16/19 10:00 03/02/19 13:25 Protonix PO 40 mg DAILY ISABELLA Administration Polyethylene Glycol 17 gm 02/16/19 10:00 03/02/19 13:25 Miralax 3350 PO 17 gm QDAY ISABELLA Administration Sevelamer Carbonate 2,400 mg 02/16/19 07:30 03/02/19 13:31 Renvela PO 2,400 mg AC ISABELLA Administration Sodium Chloride 10 ml 02/15/19 22:00 03/02/19 13:26 Sodium Chloride Flush Syringe 10 Ml IV 10 ml BID ISABELLA Administration Sodium Chloride 10 ml 02/15/19 15:27 Sodium Chloride Flush Syringe 10 Ml IV PRN PRN LINE FLUSH Nutrition/Malnutrition Assess - Dietary Evaluation Nutrition/Malnutrition Findings: Nutrition Notes Start: 02/22/19 11:27 Freq: Status: Active Protocol: Document 02/22/19 11:27 LM (Rec: 02/22/19 11:29 LM [id number]) Nutrition Notes Need for Assessment generated from: LOS Initial or Follow up Brief Note Percent of energy/protein needs met: Screen for LOS. Pt in HD. 75- 100% intakes in chart. Reviewed previous chart from 01/2019. Pt with no wt lost and good intakes. Nutrition Intervention Revisit per MD consult or patient Sign Off request:
[2019-03-02] MEDS: ceFAZolin/NS 1 GM/50 ML 1 GM/50 ML BAG IV SCH (17:54)
[2019-03-02] MEDS: EPOETIN ALFA 10,000 UNIT/1 ML INJ IV SCH (21:23)
[2019-03-03] MEDS: GABAPENTIN 100 MG CAP PO SCH ×3 (06:35→21:55)
[2019-03-03] MEDS ORDERED: SODIUM CHLORIDE*PRIMING MACHINE ONLY FOR DIALYSIS MC ONE (10:19)
--- NOTE | 2019-03-03 10:57 | Progress Note ---
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 Blood cultures now negative and patient has new permacath. Continue antibiotics per infectious disease . evaluation ongoing for subacute rehabilitation due to debilitation vs home with home health for PT physical therapy (2) ESRD (end stage renal disease) Current Visit: No Status: Chronic Plan to address problem: Cont Hemodialysis on a Friday, and Friday schedule (3) Hypertensive chronic kidney disease with stage 5 chronic kidney disease or end stage renal disease Current Visit: No Status: Acute Plan to address problem: Follow blood pressure on current medications (4) Altered mental status Current Visit: No Status: Acute Plan to address problem: Toxic encephalopathy. Neurology input appreciated. Mental status has improved. (5) Anemia in CKD (chronic kidney disease) Current Visit: No Status: Acute Qualifiers: Chronic kidney disease stage: stage 5, not on chronic dialysis Qualified Code(s): N18.5 - Chronic kidney disease, stage 5; D63.1 - Anemia in chronic kidney disease Plan to address problem: Give erythropoietin on dialysis. (6) Hyperkalemia Current Visit: No Status: Acute Plan to address problem: Potassium has improved. Monitor potassium daily (7) Hyponatremia Current Visit: Yes Status: Acute Plan to address problem: Increase fluid removal on dialysis and follow-up sodium Subjective Date of service: 03/03/19 Principal diagnosis: end-stage renal disease with MSSA bacteremia Interval history: Patient awake, alert, in no acute distress, tolerating HD well without acute issues Objective - Vital Signs Vital signs: Vital Signs - 12hr 03/03/19 03/03/19 03/03/19 02:14 07:59 09:55 Temperature 98.3 F 98.2 F 98.7 F Pulse Rate 108 H 105 H 107 H Respiratory 22 20 18 Rate Blood Pressure 116/73 135/84 140/74 O2 Sat by Pulse 89 92 Oximetry 03/03/19 03/03/19 10:00 10:15 Temperature Pulse Rate 100 H 104 H Respiratory Rate Blood Pressure 128/81 125/72 O2 Sat by Pulse Oximetry - General Appearance General appearance: well-developed, well-nourished, appears stated age EENT: ATNC, PERRL, mucous membranes moist Neck: no JVD Respiratory: Present: Clear to Ascultation Cardiology: regular, S1S2 Gastrointestinal: normoactive bowel sounds Integumentary: no rash, other (no edema ) Neurologic: no focal deficit, alert and oriented x3, strength 5/5, CN 3-12 intact Psychiatric: mood/affect appropriate, cooperative - Lab 03/02/19 13:11 03/02/19 13:11 Most recent lab results Calcium 9.1 mg/dL (8.4-10.2) 03/02/19 13:11 Medications & Allergies - Medications Allergies/Adverse Reactions: Allergies No Known Allergies Allergy (Verified 08/27/18 16:19) Home Medications: Home Medications Medication Instructions Recorded Confirmed Last Taken Type Epoetin Jeramy 10,000 Unit [Procrit] 10,000 unit IV TUTHSA vial 12/19/18 02/16/19 Unknown Rx Gabapentin 100 mg PO Q8HR 30 Days #90 capsule 12/19/18 02/16/19 Unknown Rx Polyethylene Glycol 3350 [Miralax 17 gm PO QDAY 30 Days powd.pack 12/19/18 02/16/19 Unknown Rx 3350] Sevelamer Carbonate [Renvela] 2,400 mg PO AC 30 Days tablet 12/19/18 02/16/19 Unknown Rx amLODIPine 7.5 mg PO QDAY 30 Days #45 tablet 12/19/18 02/16/19 Unknown Rx oxyCODONE /ACETAMINOPHEN [Percocet 1 tab PO BID PRN #20 tablet 12/19/18 02/16/19 Unknown Rx 5/325 mg] AtorvaSTATin [Lipitor] 20 mg PO QHS 01/05/19 02/16/19 Unknown History Pantoprazole [Protonix TAB] 40 mg PO DAILY #30 tablet 01/08/19 02/16/19 Unknown Rx Active Medications: Generic Name Dose Route Start Last Admin Trade Name Freq PRN Reason Stop Dose Admin Acetaminophen 650 mg 02/15/19 15:27 02/20/19 22:56 Tylenol PO 650 mg Q4H PRN Administration Pain MILD(1-3)/Fever >100.5/NEIL Albuterol 2.5 mg 02/15/19 15:27 Proventil IH Q4HRT PRN Shortness Of Breath Amlodipine Besylate 7.5 mg 02/16/19 10:00 03/02/19 10:00 Amlodipine PO Not Given QDAY ISABELLA Atorvastatin Calcium 20 mg 02/15/19 22:00 03/02/19 21:20 Lipitor PO 20 mg QHS ISABELLA Administration Epoetin Jeramy 10,000 unit 02/16/19 20:15 03/02/19 21:23 Procrit IV Not Given TUTHSA ISABELLA Gabapentin 100 mg 02/15/19 22:00 03/03/19 06:35 Gabapentin PO 100 mg Q8HR ISABELLA Administration Heparin Sodium (Porcine) 1,000 unit 02/16/19 11:00 Heparin 10,000 Units/10 Ml IV SISSY PRN hemodialysis Heparin Sodium (Porcine) 5,000 unit 02/16/19 11:00 Heparin IV SISSY PRN hemodialysis Heparin Sodium (Porcine) 5,000 unit 02/16/19 22:00 03/02/19 21:21 Heparin SUB-Q 5,000 unit Q12HR ISABELLA Administration Cefazolin Sodium 1 gm in 50 mls @ 100 mls/hr 02/18/19 18:00 03/02/19 17:54 Ancef/Ns 1 Gm/50 Ml IV 03/18/19 18:29 100 mls/hr QPM ISABELLA Administration Sodium Chloride 100 mls @ 999 mls/hr 02/23/19 13:38 Nacl 0.9% IV SISSY PRN Hypotension Ondansetron HCl 4 mg 02/15/19 15:27 Zofran IV Q8H PRN Nausea And Vomiting Oxycodone/Acetaminophen 1 tab 02/15/19 20:15 02/24/19 21:23 Percocet 5/325 PO 1 tab BID PRN Administration Pain, Moderate (4-6) Pantoprazole Sodium 40 mg 02/16/19 10:00 03/02/19 13:25 Protonix PO 40 mg DAILY ISABELLA Administration Polyethylene Glycol 17 gm 02/16/19 10:00 03/02/19 13:25 Miralax 3350 PO 17 gm QDAY ISABELLA Administration Sevelamer Carbonate 2,400 mg 02/16/19 07:30 03/02/19 15:30 Renvela PO 2,400 mg AC ISABELLA Administration Sodium Chloride 10 ml 02/15/19 22:00 03/02/19 21:19 Sodium Chloride Flush Syringe 10 Ml IV 10 ml BID ISABELLA Administration Sodium Chloride 10 ml 02/15/19 15:27 Sodium Chloride Flush Syringe 10 Ml IV PRN PRN LINE FLUSH
--- NOTE | 2019-03-03 13:05 | Progress Note ---
Assessment and Plan Assessment and plan: Acute and chronic respiratory failure Continue supplemental oxygen, nebulizer therapy, pulse oximetry, Sepsis due to MSSA Dialysis catheter removed Cefazolin iv as per ID Permcath placement by vascular Surg 02/23/2019 Blood cultures now negative and patient has new permacath MSSA Bacteremia ID following and recommends Cefazolin iv till 03/18/19 Toxic metabolic encephalopathy. Improved. Neurology following Repeat CT negative Concern for multi-embolic multifocal strokes (from either ITE versus atrial fibrillation), versus PRES, versus multifactorial reasons for altered mental status MRI 11/2018 negative. MRI Brain done today no acute ischemia but poss carotid disease Fever Repeated blood cultures 03/02 Will discuss with ID Physician History of Septic embolism ESRD (end stage renal disease) Nephrology following, dialysis as per renal team. monitor uop q shift, avoid nephrotoxic agents, DVT prophylaxis SCD to BLE whlile in bed, Pt not discharged because of fever. History Interval history: Less shortness of breath Less Fatigue Less confusion says he has been confused since last admission last month Fever yesterday Hospitalist Physical - Physical exam Narrative exam: Gen: Not in acute distress, lying in bed, HEENT: Normocephalic, atraumatic Neck: supple, no JVD Heart: S1 and S2 reg, no murmurs, rubs or gallop Lungs: clear to auscultation bilaterally, no crackles Abd: soft, NT, non distended, normal BS Ext: No edema, no clubbing, no cyanosis Neuro:Awake,alert, Oriented in person, place , moves all ext - Constitutional Vitals: Temp Pulse Resp BP Pulse Ox 98.7 F 122 H 18 120/69 92 03/03/19 09:55 03/03/19 11:45 03/03/19 09:55 03/03/19 11:45 03/03/19 07:59 General appearance: Present: no acute distress Results - Labs CBC & Chem 7: 03/02/19 13:11 03/02/19 13:11 Labs: Laboratory Last Values WBC 8.1 K/mm3 (4.5-11.0) 03/02/19 13:11 RBC 4.04 M/mm3 (3.65-5.03) 03/02/19 13:11 Hgb 10.4 gm/dl (11.8-15.2) L 03/02/19 13:11 Hct 32.5 % (35.5-45.6) L 03/02/19 13:11 MCV 80 fl (84-94) L 03/02/19 13:11 MCH 26 pg (28-32) L 03/02/19 13:11 MCHC 32 % (32-34) 03/02/19 13:11 RDW 18.8 % (13.2-15.2) H 03/02/19 13:11 Plt Count 195 K/mm3 (140-440) 03/02/19 13:11 Lymph % (Auto) 25.9 % (13.4-35.0) 03/02/19 13:11 [place] % (Auto) 9.7 % (0.0-7.3) H 03/02/19 13:11 Eos % (Auto) 0.5 % (0.0-4.3) 03/02/19 13:11 Baso % (Auto) 0.7 % (0.0-1.8) 03/02/19 13:11 Lymph # 2.1 K/mm3 (1.2-5.4) 03/02/19 13:11 [place] # 0.8 K/mm3 (0.0-0.8) 03/02/19 13:11 Eos # 0.0 K/mm3 (0.0-0.4) 03/02/19 13:11 Baso # 0.1 K/mm3 (0.0-0.1) 03/02/19 13:11 Add Manual Diff Complete 02/18/19 22:29 Total Counted 100 02/18/19 22:29 Seg Neutrophils % 63.2 % (40.0-70.0) 03/02/19 13:11 Seg Neuts % (Manual) 70.0 % (40.0-70.0) 02/18/19 22:29 Band Neutrophils % 0 % 02/18/19 22:29 Lymphocytes % (Manual) 19.0 % (13.4-35.0) 02/18/19 22:29 Reactive Lymphs % (Man) 0 % 02/18/19 22:29 Monocytes % (Manual) 6.0 % (0.0-7.3) 02/18/19 22:29 Eosinophils % (Manual) 5.0 % (0.0-4.3) H 02/18/19 22:29 Basophils % (Manual) 0 % (0.0-1.8) 02/18/19 22:29 Metamyelocytes % 0 % 02/18/19 22: Myelocytes % 0 % 02/18/19 22:29 Promyelocytes % 0 % 02/18/19 22:29 Blast Cells % 0 % 02/18/19 22:29 Nucleated RBC % Not Reportable 02/18/19 22:29 Seg Neutrophils # 5.1 K/mm3 (1.8-7.7) 03/02/19 13:11 Seg Neutrophils # Man 4.9 K/mm3 (1.8-7.7) 02/18/19 22:29 Band Neutrophils # 0.0 K/mm3 02/18/19 22: Lymphocytes # (Manual) 1.3 K/mm3 (1.2-5.4) 02/18/19 22:29 Abs React Lymphs (Man) 0.0 K/mm3 02/18/19 22:29 Monocytes # (Manual) 0.4 K/mm3 (0.0-0.8) 02/18/19 22:29 Eosinophils # (Manual) 0.4 K/mm3 (0.0-0.4) 02/18/19 22:29 Basophils # (Manual) 0.0 K/mm3 (0.0-0.1) 02/18/19 22:29 Metamyelocytes # 0.0 K/mm3 02/18/19 22:29 Myelocytes # 0.0 K/mm3 02/18/19 22:29 Promyelocytes # 0.0 K/mm3 02/18/19 22:29 Blast Cells # 0.0 K/mm3 02/18/19 22:29 WBC Morphology Not Reportable 02/18/19 22:29 Hypersegmented Neuts Not Reportable 02/18/19 22:29 Hyposegmented Neuts Not Reportable 02/18/19 22:29 Hypogranular Neuts Not Reportable 02/18/19 22:29 Smudge Cells Not Reportable 02/18/19 22:29 Toxic Granulation Not Reportable 02/18/19 22:29 Toxic Vacuolation Not Reportable 02/18/19 22:29 Dohle Bodies Not Reportable 02/18/19 22:29 Pelger-Huet Anomaly Not Reportable 02/18/19 22:29 Fredi Rods Not Reportable 02/18/19 22:29 Platelet Estimate Consistent w auto 02/18/19 22:29 Clumped Platelets Not Reportable 02/18/19 22:29 Plt Clumps, EDTA Not Reportable 02/18/19 22:29 Large Platelets Not Reportable 02/18/19 22:29 Giant Platelets Not Reportable 02/18/19 22:29 Platelet Satelliting Not Reportable 02/18/19 22:29 Plt Morphology Comment Not Reportable 02/18/19 22:29 RBC Morphology Not Reportable 02/18/19 22:29 Dimorphic RBCs Not Reportable 02/18/19 22:29 Polychromasia Few 02/18/19 22:29 Hypochromasia Not Reportable 02/18/19 22:29 Poikilocytosis Not Reportable 02/18/19 22:29 Anisocytosis Not Reportable 02/18/19 22:29 Microcytosis Few 02/18/19 22:29 Macrocytosis Not Reportable 02/18/19 22:29 Spherocytes Not Reportable 02/18/19 22:29 Pappenheimer Bodies Not Reportable 02/18/19 22:29 Sickle Cells Not Reportable 02/18/19 22:29 Target Cells Few 02/18/19 22:29 Tear Drop Cells Rare 02/18/19 22:29 Ovalocytes Not Reportable 02/18/19 22:29 Helmet Cells Not Reportable 02/18/19 22:29 [place] Bodies Not Reportable 02/18/19 22:29 [place] Rings Not Reportable 02/18/19 22:29 [place] Cells Not Reportable 02/18/19 22:29 Bite Cells Not Reportable 02/18/19 22:29 Crenated Cell Not Reportable 02/18/19 22:29 Elliptocytes Not Reportable 02/18/19 22:29 Acanthocytes (Spur) Not Reportable 02/18/19 22:29 Rouleaux Not Reportable 02/18/19 22:29 Hemoglobin C Crystals Not Reportable 02/18/19 22:29 Schistocytes Not Reportable 02/18/19 22:29 Malaria parasites Not Reportable 02/18/19 22:29 [place] Bodies Not Reportable 02/18/19 22:29 Hem Pathologist Commnt No 02/18/19 22:29 PT 17.6 Sec. (12.2-14.9) H 02/15/19 09:47 INR 1.42 (0.87-1.13) H 02/15/19 09:47 POC ABG pH 7.415 (7.35-7.45) 02/15/19 11:21 POC ABG pCO2 47.3 (35-45) H 02/15/19 11:21 POC ABG pO2 55 (80-105) L 02/15/19 11:21 POC ABG HCO3 30.3 (22-26 mml/L) 02/15/19 11:21 POC ABG Total CO2 32 (23-27mmol/L) 02/15/19 11:21 POC ABG O2 Sat 88 02/15/19 11:21 POC ABG Base Excess 6 ((-2) - (+3)mmol/L) 02/15/19 11:21 VBG pH 7.424 (7.320-7.420) H 02/15/19 09:47 FiO2 21 % 02/15/19 11:21 Sodium 132 mmol/L (137-145) L 03/02/19 13:11 Potassium 4.1 mmol/L (3.6-5.0) 03/02/19 13:11 Chloride 94.2 mmol/L (98-107) L 03/02/19 13:11 Carbon Dioxide 25 mmol/L (22-30) 03/02/19 13:11 Anion Gap 17 mmol/L 03/02/19 13:11 BUN 26 mg/dL (9-20) H 03/02/19 13:11 Creatinine 6.4 mg/dL (0.8-1.5) H 03/02/19 13:11 Estimated GFR 10 ml/min 03/02/19 13:11 BUN/Creatinine Ratio 4 % 03/02/19 13:11 Glucose 120 mg/dL (75-100) H 03/02/19 13:11 Lactic Acid 1.00 mmol/L (0.7-2.0) 02/15/19 14:31 Calcium 9.1 mg/dL (8.4-10.2) 03/02/19 13:11 Total Bilirubin 0.50 mg/dL (0.1-1.2) 02/16/19 04:25 AST 29 units/L (5-40) 02/16/19 04:25 ALT 6 units/L (7-56) L 02/16/19 04:25 Alkaline Phosphatase 115 units/L (35-129) 02/16/19 04:25 Ammonia 41.0 umol/L (25-60) 02/15/19 14:31 Total Protein 8.2 g/dL (6.3-8.2) 02/16/19 04:25 Albumin 2.7 g/dL (3.9-5) L 02/16/19 04:25 Albumin/Globulin Ratio 0.5 % 02/16/19 04:25 Random Vancomycin 10.5 ug/mL (0-40.0) 02/17/19 05:54 Hepatitis A IgM Ab Non-reactive (NonReactive) 02/15/19 13:16 Hep Bs Antigen Non-reactive (Negative) 02/15/19 13:16 Hep B Core IgM Ab Non-reactive (NonReactive) 02/15/19 13:16 Hepatitis C Antibody Non-reactive (NonReactive) 02/15/19 13:16 Active Medications - Current Medications Current Medications: Generic Name Dose Route Start Last Admin Trade Name Freq PRN Reason Stop Dose Admin Acetaminophen 650 mg 02/15/19 15:27 02/20/19 22:56 Tylenol PO 650 mg Q4H PRN Administration Pain MILD(1-3)/Fever >100.5/NEIL Albuterol 2.5 mg 02/15/19 15:27 Proventil IH Q4HRT PRN Shortness Of Breath Amlodipine Besylate 7.5 mg 02/16/19 10:00 03/02/19 10:00 Amlodipine PO Not Given QDAY [facility] Atorvastatin Calcium 20 mg 02/15/19 22:00 03/02/19 21:20 Lipitor PO 20 mg QHS ISABELLA Administration Epoetin Jeramy 10,000 unit 02/16/19 20:15 03/02/19 21:23 Procrit IV Not Given TUTHSA ISABELLA Gabapentin 100 mg 02/15/19 22:00 03/03/19 06:35 Gabapentin PO 100 mg Q8HR ISABELLA Administration Heparin Sodium (Porcine) 1,000 unit 02/16/19 11:00 Heparin 10,000 Units/10 Ml IV SISSY PRN hemodialysis Heparin Sodium (Porcine) 5,000 unit 02/16/19 11:00 Heparin IV SISSY PRN hemodialysis Heparin Sodium (Porcine) 5,000 unit 02/16/19 22:00 03/02/19 21:21 Heparin SUB-Q 5,000 unit Q12HR ISABELLA Administration Cefazolin Sodium 1 gm in 50 mls @ 100 mls/hr 02/18/19 18:00 03/02/19 17:54 Ancef/Ns 1 Gm/50 Ml IV 03/18/19 18:29 100 mls/hr QPM ISABELLA Administration Sodium Chloride 100 mls @ 999 mls/hr 02/23/19 13:38 Nacl 0.9% IV SSISY PRN Hypotension Ondansetron HCl 4 mg 02/15/19 15:27 Zofran IV Q8H PRN Nausea And Vomiting Oxycodone/Acetaminophen 1 tab 02/15/19 20:15 02/24/19 21:23 Percocet 5/325 PO 1 tab BID PRN Administration Pain, Moderate (4-6) Pantoprazole Sodium 40 mg 02/16/19 10:00 03/02/19 13:25 Protonix PO 40 mg DAILY ISABELLA Administration Polyethylene Glycol 17 gm 02/16/19 10:00 03/02/19 13:25 Miralax 3350 PO 17 gm QDAY ISABELLA Administration Sevelamer Carbonate 2,400 mg 02/16/19 07:30 03/02/19 15:30 Renvela PO 2,400 mg AC ISABELLA Administration Sodium Chloride 10 ml 02/15/19 22:00 03/02/19 21:19 Sodium Chloride Flush Syringe 10 Ml IV 10 ml BID ISABELLA Administration Sodium Chloride 10 ml 02/15/19 15:27 Sodium Chloride Flush Syringe 10 Ml IV PRN PRN LINE FLUSH Nutrition/Malnutrition Assess - Dietary Evaluation Nutrition/Malnutrition Findings: Nutrition Notes Start: 02/22/19 11:27 Freq: Status: Active Protocol: Document 02/22/19 11:27 LM (Rec: 02/22/19 11:29 LM [id number]) Nutrition Notes Need for Assessment generated from: LOS Initial or Follow up Brief Note Percent of energy/protein needs met: Screen for LOS. Pt in HD. 75- 100% intakes in chart. Reviewed previous chart from 01/2019. Pt with no wt lost and good intakes. Nutrition Intervention Revisit per MD consult or patient Sign Off request:
[2019-03-03] MEDS: EPOETIN ALFA 10,000 UNIT/1 ML INJ IV SCH (13:59)
[2019-03-03] MEDS: SEVELAMER CARBONATE 800 MG TAB PO SCH ×3 (14:38→19:05)
[2019-03-03] MEDS: amLODIPine 5 MG TAB PO SCH (14:46)
[2019-03-03] MEDS: PANTOPRAZOLE 40 MG TAB PO SCH (14:47)
[2019-03-03] MEDS: POLYETHYLENE GLYCOL 3350 17 GM POWDER PO SCH (14:47)
[2019-03-03] MEDS: HEPARIN 5,000 UNIT/1 ML VIAL SUB-Q SCH ×2 (14:49→21:56)
[2019-03-03] MEDS: ceFAZolin/NS 1 GM/50 ML 1 GM/50 ML BAG IV SCH (19:06)
[2019-03-04] MEDS: GABAPENTIN 100 MG CAP PO SCH ×3 (05:47→16:56)
[2019-03-04] MEDS: SEVELAMER CARBONATE 800 MG TAB PO SCH ×3 (08:46→16:51)
[2019-03-04] MEDS: HEPARIN 5,000 UNIT/1 ML VIAL SUB-Q SCH (10:12)
[2019-03-04] MEDS: POLYETHYLENE GLYCOL 3350 17 GM POWDER PO SCH (10:12)
[2019-03-04] MEDS: amLODIPine 5 MG TAB PO SCH (10:12)
[2019-03-04] MEDS: PANTOPRAZOLE 40 MG TAB PO SCH (10:13)
--- NOTE | 2019-03-04 12:47 | Progress Note ---
Assessment and Plan - Patient Problems (1) ESRD (end stage renal disease) Current Visit: No Status: Chronic Plan to address problem: Continue with TTS inpatient HD schedule. (2) Staphylococcus aureus bacteremia with sepsis Current Visit: Yes Status: Acute Plan to address problem: Patient with recurrent MSSA bacteremia and previous episode of infective e ndocarditis. Repeat blood cultures have been negative and he has a new Permacath in place. Antibiotic regimen per ID recommendations. (3) Altered mental status Current Visit: No Status: Acute Plan to address problem: Improved since admission. (4) Hypertensive chronic kidney disease with stage 5 chronic kidney disease or end stage renal disease Current Visit: No Status: Chronic Plan to address problem: Closely monitor blood pressures with current regimen. (5) Hyperkalemia Current Visit: No Status: Acute Plan to address problem: Corrected with HD. Counseled patient on low K diet. (6) Anemia in CKD (chronic kidney disease) Current Visit: No Status: Acute Qualifiers: Chronic kidney disease stage: stage 5, not on chronic dialysis Qualified Code(s): N18.5 - Chronic kidney disease, stage 5; D63.1 - Anemia in chronic kidney disease Plan to address problem: RACHELE therapy with HD. (7) Secondary hyperparathyroidism (of renal origin) Current Visit: No Status: Chronic Plan to address problem: Continue on home phos binder regimen. Subjective Date of service: 03/04/19 Principal diagnosis: end-stage renal disease with MSSA bacteremia Interval history: No acute complaints this am. Objective - Vital Signs Vital signs: Vital Signs - 12hr 03/04/19 03/04/19 03/04/19 02:14 07:32 08:15 Temperature 98.2 F 97.2 F L Pulse Rate 105 H 101 H Respiratory 18 20 Rate Blood Pressure 125/63 130/77 O2 Sat by Pulse 88 93 93 Oximetry - General Appearance General appearance: well-nourished, appears stated age EENT: ATNC, PERRL Neck: no JVD, no thyromegaly Respiratory: Present: Clear to Ascultation Cardiology: regular Gastrointestinal: normal, normoactive bowel sounds Integumentary: no rash, warm and dry Neurologic: no focal deficit Musculoskeletal: deferred Psychiatric: cooperative - Lab 03/02/19 13:11 03/02/19 13:11 Most recent lab results Calcium 9.1 mg/dL (8.4-10.2) 03/02/19 13:11 - Allied health notes Allied health notes reviewed: nursing Medications & Allergies - Medications Allergies/Adverse Reactions: Allergies No Known Allergies Allergy (Verified 08/27/18 16:19) Home Medications: Home Medications Medication Instructions Recorded Confirmed Last Taken Type Epoetin Jeramy 10,000 Unit [Procrit] 10,000 unit IV TUTHSA vial 12/19/18 02/16/19 Unknown Rx Gabapentin 100 mg PO Q8HR 30 Days #90 capsule 12/19/18 02/16/19 Unknown Rx Polyethylene Glycol 3350 [Miralax 17 gm PO QDAY 30 Days powd.pack 12/19/18 02/16/19 Unknown Rx 3350] Sevelamer Carbonate [Renvela] 2,400 mg PO AC 30 Days tablet 12/19/18 02/16/19 Unknown Rx amLODIPine 7.5 mg PO QDAY 30 Days #45 tablet 12/19/18 02/16/19 Unknown Rx oxyCODONE /ACETAMINOPHEN [Percocet 1 tab PO BID PRN #20 tablet 12/19/18 02/16/19 Unknown Rx 5/325 mg] AtorvaSTATin [Lipitor] 20 mg PO QHS 01/05/19 02/16/19 Unknown History Pantoprazole [Protonix TAB] 40 mg PO DAILY #30 tablet 01/08/19 02/16/19 Unknown Rx Active Medications: Generic Name Dose Route Start Last Admin Trade Name Freq PRN Reason Stop Dose Admin Acetaminophen 650 mg 02/15/19 15:27 02/20/19 22:56 Tylenol PO 650 mg Q4H PRN Administration Pain MILD(1-3)/Fever >100.5/NEIL Albuterol 2.5 mg 02/15/19 15:27 Proventil IH Q4HRT PRN Shortness Of Breath Amlodipine Besylate 7.5 mg 02/16/19 10:00 03/04/19 10:12 Amlodipine PO 7.5 mg QDAY ISABELLA Administration Atorvastatin Calcium 20 mg 02/15/19 22:00 03/03/19 21:55 Lipitor PO 20 mg QHS ISABELLA Administration Epoetin Jeramy 10,000 unit 02/16/19 20:15 03/03/19 13:59 Procrit IV 10,000 unit TUTHSA ISABELLA Administration Gabapentin 100 mg 02/15/19 22:00 03/04/19 05:47 Gabapentin PO 100 mg Q8HR ISABELLA Administration Heparin Sodium (Porcine) 1,000 unit 02/16/19 11:00 Heparin 10,000 Units/10 Ml IV SISSY PRN hemodialysis Heparin Sodium (Porcine) 5,000 unit 02/16/19 11:00 03/03/19 14:00 Heparin IV 5,000 unit SISSY PRN Administration hemodialysis Heparin Sodium (Porcine) 5,000 unit 02/16/19 22:00 03/04/19 10:12 Heparin SUB-Q 5,000 unit Q12HR ISABELLA Administration Cefazolin Sodium 1 gm in 50 mls @ 100 mls/hr 02/18/19 18:00 03/03/19 19:06 Ancef/Ns 1 Gm/50 Ml IV 03/18/19 18:29 100 mls/hr QPM ISABELLA Administration Sodium Chloride 100 mls @ 999 mls/hr 02/23/19 13:38 Nacl 0.9% IV SISSY PRN Hypotension Ondansetron HCl 4 mg 02/15/19 15:27 Zofran IV Q8H PRN Nausea And Vomiting Oxycodone/Acetaminophen 1 tab 02/15/19 20:15 02/24/19 21:23 Percocet 5/325 PO 1 tab BID PRN Administration Pain, Moderate (4-6) Pantoprazole Sodium 40 mg 02/16/19 10:00 03/04/19 10:13 Protonix PO 40 mg DAILY ISABELLA Administration Polyethylene Glycol 17 gm 02/16/19 10:00 03/04/19 10:12 Miralax 3350 PO 17 gm QDAY ISABELLA Administration Sevelamer Carbonate 2,400 mg 02/16/19 07:30 03/04/19 08:46 Renvela PO 2,400 mg AC ISABELLA Administration Sodium Chloride 10 ml 02/15/19 22:00 03/04/19 10:13 Sodium Chloride Flush Syringe 10 Ml IV 10 ml BID ISABELLA Administration Sodium Chloride 10 ml 02/15/19 15:27 Sodium Chloride Flush Syringe 10 Ml IV PRN PRN LINE FLUSH
[2019-03-04 14:31] VITALS: BP 110/66
--- NOTE | 2019-03-04 16:16 | Discharge Summary ---
Providers - Providers Date of Admission: 02/15/19 15:27 Date of discharge: 03/04/19 Attending physician: KENIA INMAN 02/16/19 08:54 Consult to Physician [CONS] Routine Comment: Consulting Provider: MONET SOLORZANO Physician Instructions: Reason For Exam: ESRD 02/16/19 11:48 Consult to Physician [CONS] Routine Comment: Consulting Provider: RC ALLEN Physician Instructions: Reason For Exam: Bacteremia Gram pos cocci, hx of MSSA 02/17/19 12:02 Consult to Physician [CONS] Routine Comment: GRACIELA Consulting Provider: LARRY SHINE Physician Instructions: CONSULT WAS CALLED TO /MICAH Reason For Exam: To remove Dialysis catheter. Bacteremia 02/18/19 14:36 Consult to Case Management [CONS] Routine Services Needed at Discharge: Home Health Services Notified:: PATRICIA Rosales Physician Instructions: [facility] ([facility] M: [phone] O: [phone] F: [phone] OUTPATIENT PARENTERAL ANTIBIOTIC THERAPY ORDERS Diagnosis: MSSA bacteremia Antimicrobial administration: cefazolin post-HD 2g-2g-3g (M-W-F) until 03/18/2019 Line: dialysis line Lab monitoring: CBC with diff, BUN, creatinine, LFTs once per week preferably on Friday mornings. Please fax results to [phone] and call [phone] Allen 02/18/2019 02/25/19 08:58 Consult to Physician [CONS] Routine Comment: Consulting Provider: EVELYN RODGERS Physician Instructions: Reason For Exam: AMS 02/28/19 15:59 Consult to Case Management [CONS] Routine Services Needed at Discharge: Other Notified:: SIMON Comment:: evaluate patient for subacute rehabilitation for physical rehabilitation Primary care physician: PULVERIZER FEEDER Hospitalization Condition: Fair Disposition: DC-01 TO HOME OR SELFCARE Exam - Constitutional Vitals: Temp Pulse Resp BP Pulse Ox 99.3 F 103 H 20 110/66 93 03/04/19 14:09 03/04/19 14:09 03/04/19 07:32 03/04/19 14:09 03/04/19 14:09 Plan Activity: advance as tolerated Diet: renal Special Instructions: physical therapy (Home health), home health RN, other (1.Follow up with PCP in 1 week. 2. Continue Cefazolin with dialysis until 03/18/19) Plan of Treatment: 1.Follow up with PCP in 1 week. 2.Follow up with JOURDAN Keita in 1-2 weeks 3.Continue routine hemodialysis as scheduled 4.Follow up with Neurology in 1 week Follow up with: PRIMARY CAREMD [Primary Care Provider] - 3-5 Days
[2019-03-04] MEDS: ceFAZolin/NS 1 GM/50 ML 1 GM/50 ML BAG IV SCH (17:06)
== END 2019-03-04 19:42 | disposition home health service (06) | DRG 314 ==
LOC: ED 09:30 → 2B-ACE 15:27
PROVIDERS: ADMIT Internal Medicine; ATTEND Internal Medicine
PROC: 4A033R1 Measurement of Arterial Saturation, Peripheral, Percutaneous Approach (ICD-10-PCS; principal; 2019-02-15)
PROC: 05PYX3Z Removal of Infusion Device from Upper Vein, External Approach (ICD-10-PCS; 2019-02-17)
PROC: 5A1D70Z Performance of Urinary Filtration, Intermittent, Less than 6 Hours Per Day (ICD-10-PCS; 2019-02-19)
PROC: 02HV33Z Insertion of Infusion Device into Superior Vena Cava, Percutaneous Approach (ICD-10-PCS; 2019-02-19)
PROC: B548ZZA Ultrasonography of Superior Vena Cava, Guidance (ICD-10-PCS; 2019-02-19)
PROC: 5A1D70Z Performance of Urinary Filtration, Intermittent, Less than 6 Hours Per Day (ICD-10-PCS; 2019-02-22)
PROC: 0JH63XZ Insertion of Tunneled Vascular Access Device into Chest Subcutaneous Tissue and Fascia, Percutaneous Approach (ICD-10-PCS; 2019-02-23)
PROC: 02H633Z Insertion of Infusion Device into Right Atrium, Percutaneous Approach (ICD-10-PCS; 2019-02-23)
PROC: B5181ZA Fluoroscopy of Superior Vena Cava using Low Osmolar Contrast, Guidance (ICD-10-PCS; 2019-02-23)
PROC: 5A1D70Z Performance of Urinary Filtration, Intermittent, Less than 6 Hours Per Day (ICD-10-PCS; 2019-02-24)
PROC: 5A1D70Z Performance of Urinary Filtration, Intermittent, Less than 6 Hours Per Day (ICD-10-PCS; 2019-02-26)
PROC: 5A1D70Z Performance of Urinary Filtration, Intermittent, Less than 6 Hours Per Day (ICD-10-PCS; 2019-03-01)
PROC: 5A1D70Z Performance of Urinary Filtration, Intermittent, Less than 6 Hours Per Day (ICD-10-PCS; 2019-03-03)
DX: T82.7XXA Infection and inflammatory reaction due to other cardiac and vascular devices, implants and grafts, initial encounter (principal); A41.01 Sepsis due to Methicillin susceptible Staphylococcus aureus; N18.6 End stage renal disease; J96.21 Acute and chronic respiratory failure with hypoxia; I26.90 Septic pulmonary embolism without acute cor pulmonale; I33.0 Acute and subacute infective endocarditis; G92 Toxic encephalopathy; I12.0 Hypertensive chronic kidney disease with stage 5 chronic kidney disease or end stage renal disease; E87.1 Hypo-osmolality and hyponatremia; N25.81 Secondary hyperparathyroidism of renal origin; Y83.8 Other surgical procedures as the cause of abnormal reaction of the patient, or of later complication, without mention of misadventure at the time of the procedure; Y92.89 Other specified places as the place of occurrence of the external cause; I48.91 Unspecified atrial fibrillation; F03.90 Unspecified dementia, unspecified severity, without behavioral disturbance, psychotic disturbance, mood disturbance, and anxiety; G89.29 Other chronic pain; D63.8 Anemia in other chronic diseases classified elsewhere; M19.90 Unspecified osteoarthritis, unspecified site; D63.1 Anemia in chronic kidney disease; E87.5 Hyperkalemia; I16.0 Hypertensive urgency; Z91.14 Patient's other noncompliance with medication regimen
CPT/HCPCS: 36415; 36556; 36558; 70450; 70544; 70547; 70551; 71045; 71250; 76937; 77001; 80048; 80053; 80074; 80202; 82140; 82270; 82803; 82805; 85007; 85025; 85610; 86403; 87040; 87076; 87116; 87186; 93005; 93010; 93308; 93321; 93325; 93880; 94640; 94760; 96365; G0378; A9270-GY; C1750; C1751; C1752; C1769; J0690; J0885; J1644; J2250; J2310; J3010; J3370; J7030; J7050

== ENCOUNTER 2019-04-20 09:07 | Emergency (ER) | payer BC, MEDICARE ==
--- NOTE | 2019-04-20 12:27 | Emergency Department Report ---
HPI - General Chief Complaint: Medical Clearance Time Seen by Provider: 04/20/19 12:11 - HPI HPI: 73-year-old -N[place]ien male presents to the emergency department via EMS from his dialysis facility at [facility] after his tunneled dialysis catheter b ecame clogged or malfunctioned in the middle of his dialysis session. He has end-stage renal disease on hemodialysis on Friday//Friday and did complete it on Friday. His comfort advisor is Dr Arvizu. Currently he denies any chest pain, shortness of breath or any significant edema. He also has a past medical history of hypertension, anemia of chronic kidney disease, hyperlipidemia. ED Past Medical Hx - Past Medical History Hx Hypertension: Yes Hx Heart Attack/AMI: No Hx Liver Disease: No Hx Renal Disease: Yes (HD ,,Fri) Hx Arthritis: Yes ("Different days, different joints") Additional medical history: ESRD, Hematuria, Proteinuria, Noncompliant with medical treatment, hypokalemis, hyperparathyroidism, pulmonary sepsis, - Surgical History Additional Surgical History: hemmoroidectomy. Right chest Vas-Cath - Social History Smoking Status: Never Smoker - Medications Home Medications: Home Medications Medication Instructions Recorded Confirmed Last Taken Type Epoetin Jeramy 10,000 Unit [Procrit] 10,000 unit IV TUTHSA vial 12/19/18 02/16/19 Unknown Rx Gabapentin 100 mg PO Q8HR 30 Days #90 capsule 12/19/18 02/16/19 Unknown Rx Sevelamer Carbonate [Renvela] 2,400 mg PO AC 30 Days tablet 12/19/18 02/16/19 Unknown Rx amLODIPine 7.5 mg PO QDAY 30 Days #45 tablet 12/19/18 02/16/19 Unknown Rx oxyCODONE /ACETAMINOPHEN [Percocet 1 tab PO BID PRN #20 tablet 12/19/18 02/16/19 Unknown Rx 5/325 mg] polyethylene glycoL 3350 [Miralax 17 gm PO QDAY 30 Days powd.pack 12/19/18 02/16/19 Unknown Rx 3350] AtorvaSTATin [Lipitor] 20 mg PO QHS 01/05/19 02/16/19 Unknown History Pantoprazole [Protonix TAB] 40 mg PO DAILY #30 tablet 01/08/19 02/16/19 Unknown Rx ED Review of Systems ROS: Stated complaint: DIALYSIS PORT COMPLICATIONS Other details as noted in HPI Comment: All other systems reviewed and negative Constitutional: denies: chills, fever Eyes: denies: eye pain, vision change ENT: denies: ear pain, throat pain Respiratory: denies: cough, wheezing Cardiovascular: denies: chest pain, palpitations Gastrointestinal: denies: abdominal pain, vomiting Genitourinary: denies: dysuria, discharge Musculoskeletal: denies: back pain, arthralgia Skin: denies: rash, lesions Neurological: denies: headache, weakness Physical Exam - Physical Exam Vital Signs: Vital Signs 04/20/19 09:16 Temperature 97 F L Pulse Rate 75 Respiratory 20 Rate Blood Pressure 174/105 [Right] O2 Sat by Pulse 100 Oximetry Physical Exam: GENERAL: The patient is well-developed well-nourished. HENT: Normocephalic. Atraumatic. Patient has moist mucous membranes. EYES: Extraocular motions are intact. NECK: Supple. Trachea is midline. CHEST/LUNGS: Clear to auscultation. There is no respiratory distress noted. HEART/CARDIOVASCULAR: Regular. There is no tachycardia. There is no murmur. ABDOMEN: Abdomen is soft, nontender. Patient has normal bowel sounds. There is no abdominal distention. SKIN: Skin is warm and dry. NEURO: The patient is awake, alert, and cooperative. The patient has no focal neurologic deficits. Normal speech. MUSCULOSKELETAL: There is no tenderness or deformity. There is no evidence of acute injury. ED Course Vital Signs 04/20/19 09:16 Temperature 97 F L Pulse Rate 75 Respiratory 20 Rate Blood Pressure 174/105 [Right] O2 Sat by Pulse 100 Oximetry - Consultations Consultation #1: The vascular surgeon on-call, Dr. Spence, is currently at bedside and is going to take the patient for dialysis catheter exchange. 04/20/19 14:41 Consultation #2: I spoke with the patient's comfort advisor, Dr. Arvizu, who says that the patient can be discharged home after the catheter exchange and he is going to arrange for the patient to get dialysis tomorrow at his dialysis clinic, instead of the normally scheduled day on . Dr. Arvizu is aware of the patient's thrombocytopenia but says that the patient is safe for DC home since his platelet count is greater than 50. 04/20/19 14:41 ED Medical Decision Making - Lab Data Result diagrams: 04/20/19 12:36 04/20/19 12:36 - Radiology Data Radiology results: image reviewed interpreted by me: Chest x-ray does not show any acute process. There are no pleural effusions, obvious pneumonia and there is no pneumothorax. - Medical Decision Making This patient presents to the emergency department from dialysis after his dialysis catheter either became clogged or malfunctioned in the middle of his dialysis session. The patient has no complaints of any chest pain, shortness of breath and does not appear in any acute distress. A chest x-ray was done that does not show any pneumonia, pneumothorax or any significant pleural effusions. Patient's labs show his renal insufficiency consistent with his end-stage renal disease on hemodialysis. Potassium level is 4.8. Patient also has some thrombocytopenia with a platelet count of 66. Vital signs stable throughout his ED course thus far. Vascular surgery has been consulted and is currently at bedside and the patient will be taken shortly for dialysis catheter exchange. Nephrology has been contacted and is arranging for the patient to receive dialysis tomorrow instead of and says the patient is safe for discharge home after the catheter exchange and despite the thrombocytopenia. The patient has been instructed to return to the emergency department with any shortness of breath, chest pain, or with any acute distress. Critical Care Time: No Critical care attestation.: If time is entered above; I have spent that time in minutes in the direct care of this critically ill patient, excluding procedure time. ED Disposition Clinical Impression: Dialysis catheter clot or failure, ESRD on hemodialysis, Thrombocytopenia Hypertension Qualifiers: Hypertension type: essential hypertension Qualified Code(s): I10 - Essential (primary) hypertension Disposition: - TO HOME OR SELFCARE Is pt being admited?: No Condition: Stable Instructions: Hemodialysis (ED), Hypertension (ED), Thrombocytopenia (ED), End- Stage Kidney Disease (ED) Additional Instructions: Your comfort advisor, Dr. Arvizu, is arranging for you to get dialysis tomorrow, Friday, instead of your normally scheduled day on . Please call the dialysis clinic either this evening or first thing in the morning for your scheduled dialysis time. Please go to the closest emergency department with any development of shortness of breath, chest pain, or with any acute distress. Referrals: MONET ARVIZU MD [Primary Care Provider] - 2-3 Days Time of Disposition: 14:46 Print Language: KINYARWANDA
--- NOTE | 2019-04-20 12:53 | XRay Report ---
CHEST 1 VIEW INDICATION / CLINICAL INFORMATION: SOB. COMPARISON: 02/15/2019 FINDINGS: SUPPORT DEVICES: Ms. Access catheter on the left projects over the superior vena cava/right atrial ju nction. HEART / MEDIASTINUM: Stable. LUNGS / PLEURA: No significant pulmonary or pleural abnormality. No pneumothorax. ADDITIONAL FINDINGS: Subsegmental atelectasis is identified in the left lower lung. IMPRESSION: 1. No acute findings. Signer Name: Russell Greenfield MD Signed: 04/20/2019 12:48 PM Workstation Name: Appear Here
[2019-04-20 13:08] LABS: Eosinophils # (Auto) 0.2 K/mm3 (0.0-0.4); Eosinophils % (Auto) 3.4 % (0.0-4.3); Hemoglobin 11.3 gm/dl (11.8-15.2); Lymphocytes # (Auto) 1.7 K/mm3 (1.2-5.4); Lymphocytes % (Auto) 36.9 % (13.4-35.0); Mean Corpuscular HGB Conc 32 % (32-34); Mean Corpuscular Volume 79 fl (84-94); Monocytes # (Auto) 0.6 K/mm3 (0.0-0.8); Monocytes % (Auto) 13.1 % (0.0-7.3); Red Blood Count 4.41 M/mm3 (3.65-5.03); Red Cell Distribution Width 19.9 % (13.2-15.2)
[2019-04-20 13:19] LABS: Platelet Count 66 K/mm3 (140-440)
[2019-04-20 13:31] LABS: Calcium 9.3 mg/dL (8.4-10.2)
[2019-04-20] MEDS ORDERED: SODIUM CHLORIDE 0.9% 250ML 250 ML ONE (14:21)
[2019-04-20] MEDS ORDERED: LIDOCAINE 1%/EPINEPHRINE 1:100,000 VIAL (20 ML) INFILTRATI ONE (14:21)
[2019-04-20] MEDS ORDERED: HEPARIN/NS 5000 UNIT/500ML 500 ML IR ONE (14:21)
[2019-04-20] MEDS: MIDAZOLAM 2 MG/2 ML INJ ONE ×3 (14:54→15:00)
[2019-04-20] MEDS: fentaNYL 100 MCG/2 ML INJ ONE ×3 (14:54→15:00)
[2019-04-20] MEDS: HEPARIN 10,000 UNITS/10 ML VIAL ONE ×3 (14:55→15:14)
[2019-04-20] MEDS ORDERED: DESMOPRESSIN ACETATE 20 MCG in SODIUM CHLORIDE 0.9% 50 ML IV ONE (15:16)
--- NOTE | 2019-04-20 15:26 | Consultation ---
History of Present Illness - Reason for Consult Consult date: 04/20/19 Permcath malfunction - History of Present Illness 73-year-old -[place] male presents to the emergency department via EMS from his dialysis facility at [facility] after his tunneled dialysis catheter became clogged or malfunctioned in the middle of his dialysis session. He has end-stage renal disease on hemodialysis on Friday//Friday and did complete it on Friday. His parking meter attendant is Dr Arvizu. Currently he denies any chest pain, shortness of breath or any significant edema. He also has a past m edical history of hypertension, anemia of chronic kidney disease, hyperlipidemia. - Past Medical History Hx Hypertension: Yes Hx Heart Attack/AMI: No Hx Liver Disease: No Hx Renal Disease: Yes (HD ,,Fri) Hx Arthritis: Yes ("Different days, different joints") Additional medical history: ESRD, Hematuria, Proteinuria, Noncompliant with medical treatment, hypokalemis, hyperparathyroidism, pulmonary sepsis, - Surgical History Additional Surgical History: hemmoroidectomy. Right chest Vas-Cath - Social History Smoking Status: Never Smoker Medications and Allergies Allergies Allergy/AdvReac Type Severity Reaction Status Date / Time No Known Allergies Allergy Verified 08/27/18 16:19 Home Medications Medication Instructions Recorded Confirmed Last Taken Type Epoetin Jeramy 10,000 Unit [Procrit] 10,000 unit IV TUTHSA vial 12/19/18 02/16/19 Unknown Rx Gabapentin 100 mg PO Q8HR 30 Days #90 capsule 12/19/18 02/16/19 Unknown Rx Sevelamer Carbonate [Renvela] 2,400 mg PO AC 30 Days tablet 12/19/18 02/16/19 Unknown Rx amLODIPine 7.5 mg PO QDAY 30 Days #45 tablet 12/19/18 02/16/19 Unknown Rx oxyCODONE /ACETAMINOPHEN [Percocet 1 tab PO BID PRN #20 tablet 12/19/18 02/16/19 Unknown Rx 5/325 mg] polyethylene glycoL 3350 [Miralax 17 gm PO QDAY 30 Days powd.pack 12/19/18 02/16/19 Unknown Rx 3350] AtorvaSTATin [Lipitor] 20 mg PO QHS 01/05/19 02/16/19 Unknown History Pantoprazole [Protonix TAB] 40 mg PO DAILY #30 tablet 01/08/19 02/16/19 Unknown Rx Active Meds: Active Medications Desmopressin Acetate 20 mcg/ (Sodium Chloride) 55 mls @ 100 mls/hr IV ONCE ONE Stop: 04/20/19 15:45 Review of Systems All systems: negative (see HPI) Exam - Constitutional Vitals: Temp Pulse Resp BP Pulse Ox 98.1 F 67 17 163/101 97 04/20/19 12:23 04/20/19 14:00 04/20/19 14:00 04/20/19 14:00 04/20/19 14:00 General appearance: Present: no acute distress - EENT Eyes: Present: EOM intact ENT: hearing intact - Neck Neck: Present: other (Left neck permcath without erythema or pain) - Respiratory Respiratory effort: normal (on supplementary O2) - Psychiatric Psychiatric: appropriate mood/affect, cooperative Results - Labs CBC & Chem 7: 04/20/19 12:36 04/20/19 12:36 Labs: Abnormal lab results 04/20/19 04/20/19 Range/Units 12:36 12:36 Hgb 11.3 L (11.8-15.2) gm/dl Hct 35.0 L (35.5-45.6) % MCV 79 L (84-94) fl MCH 26 L (28-32) pg RDW 19.9 H (13.2-15.2) % Plt Count 66 L (140-440) K/mm3 Lymph % (Auto) 36.9 H (13.4-35.0) % Union % (Auto) 13.1 H (0.0-7.3) % Sodium 134 L (137-145) mmol/L Chloride 95.4 L (98-107) mmol/L Carbon Dioxide 19 L (22-30) mmol/L BUN 59 H (9-20) mg/dL Creatinine 7.1 H (0.8-1.5) mg/dL Assessment and Plan 73-year-old male with end-stage renal disease with PermCath malfunction. Plan for PermCath exchange. Risks, benefits, and alternatives discussed. If oozing occurs, up will provide DDAVP IV due to renal dysfunction with thrombocytopenia. Recommend patient follows up with us as outpatient for long-term AV access. Will obtain vein mapping.
--- NOTE | 2019-04-20 15:26 | Operative Report ---
Operative Report Operative Report: EXAM: 1. Fluoroscopic guided exchange of a left internal jugular tunneled cuffed hemodialysis catheter. 2. Superior venacava venography DATE: 04/20/2019 INDICATION: End-stage renal disease with permacath malfunction MEDICATIONS: Please see nursing report for full details. PEGA DEVELOPER: LARRY SHINE MD DEVICES: 23 cm tip to cuff 15 Fr dual lumen hemodialysis catheter ; existing catheter was a 23 cm tip to cuff dual lumen hemodialysis catheter CONTRAST: Please see Senior Sales Operations Manager report for full details PROCEDURE: The risks, benefits, and alternatives were discussed and informed consent was obtained. The patient was transported to the angiography suite in satisfactory/stable condition and was transported onto the angiography table. The patient was prepped and draped in a sterile fashion. The existing PermCath was prepped and draped in a sterile fashion. Heparin was removed from the lumens and then saline was used to flush the lumens. A stiff angled Glidewire was advanced through 1 of the lumens into the IVC. Lidocaine was used to anesthetize the existing PermCath dermatotomy. Using a hemostat, blunt dissection was used to free the existing cuff. The catheter was partially retracted. Digital subtraction venography was performed through the other lumen. A second 0.035 inch stiff Glidewire was then passed into the IVC. PermCath was removed. ChloraPrep was used to clean the wires and the dermatotomy site. A new PermCath was advanced over the wire and position centrally under fluoroscopic guidance. 2-0 Ethilon suture was used to secure the catheter at the dermatotomy. The catheter was charged with heparin 1000 units/mL of space. Sterile dressing and Biopatch applied. The patient was transferred from the angiography suite back to the floor in stable condition. FINDINGS: 1. Excellent flow was obtained through the dialysis catheter with 20 mL syringes. 2. The new catheter tip is in the right atrium. 3. Superior vena cava venography demonstrates patency of the SVC IMPRESSION: 1. Successful fluoroscopic guided replacement of a left internal jugular tunneled cuffed hemodialysis catheter.
--- NOTE | 2019-04-20 15:49 | Event Note ---
Patient reassessed and in no acute distress. Patient meets no criteria for emergent dialysis. Patient to be discharged after having vascular procedure.
[2019-04-20 19:03] VITALS: BP 164/116
== END 2019-04-20 19:03 | disposition home or self-care (01) ==
LOC: ED 09:07
DX: T82.49XA Other complication of vascular dialysis catheter, initial encounter (principal); I12.0 Hypertensive chronic kidney disease with stage 5 chronic kidney disease or end stage renal disease; N18.6 End stage renal disease; D64.9 Anemia, unspecified; D69.6 Thrombocytopenia, unspecified; E21.3 Hyperparathyroidism, unspecified; M19.90 Unspecified osteoarthritis, unspecified site; Z98.890 Other specified postprocedural states; Z79.899 Other long term (current) drug therapy; Z99.2 Dependence on renal dialysis; Y84.1 Kidney dialysis as the cause of abnormal reaction of the patient, or of later complication, without mention of misadventure at the time of the procedure
CPT/HCPCS: 36415; 36581; 71045; 75827; 80048; 85025; 96374; 99284; C1750; C1769; J1644; J2250; J2597; J3010; J7050; Q9967